=== PATIENT | male | born 1935 | race Caucasian/White ===

== ENCOUNTER → 2016-08-06 | Outpatient (CLI) | payer MEDICARE, BC ==
--- NOTE | 2016-08-06 17:13 | XR ---
EXAMINATION TYPE: XR foot complete LT DATE OF EXAM: 08/06/2016 4:37 PM COMPARISON: 05/31/2016 HISTORY: Pain TECHNIQUE: 3 views FINDINGS: Metatarsals are intact. I see no fracture nor dislocation. There are no erosions. There is minimal spurring at the first MP joint. IMPRESSION: Negative left foot exam. No adverse change compared to last exam. Minor spur formation. T here is mild spurring at the first tarsometatarsal joint.
== END | disposition home or self-care (01) ==
LOC: RADXRMAIN 16:22
PROVIDERS: ATTEND Family Medicine
DX: M77.52 Other enthesopathy of left foot and ankle (principal); M79.672 Pain in left foot

== ENCOUNTER → 2016-08-12 | Outpatient (CLI) | payer MEDICARE, BC ==
--- NOTE | 2016-08-13 06:25 | XR ---
EXAMINATION TYPE: XR chest 2V DATE OF EXAM: 08/12/2016 4:39 PM COMPARISON: 06/28/2016 HISTORY: 81 year-old male shortness of breath TECHNIQUE: Frontal and lateral views FINDINGS: Left anterior chest wall AICD generator with right ventricular lead. Heart remains mild to moderately enlarged with mild elongation of the thoracic aorta. Mild diffuse interstitial prominence may in par t be chronic. No consolidation or pleural effusion. IMPRESSION: Cardiomegaly. Interstitial prominence may in part be chronic. Correlate to exclude mild pulmonary vas cular congestion. Otherwise, no acute process.
== END | disposition home or self-care (01) ==
LOC: RADXRMAIN 16:22
PROVIDERS: ATTEND Family Medicine
DX: I51.7 Cardiomegaly (principal); R06.02 Shortness of breath
CPT/HCPCS: 71020; 93005

== ENCOUNTER 2016-08-15 12:24 | Inpatient (IN) | payer MEDICARE, BC ==
[2016-08-15] MEDS ORDERED: IPRATROPIUM-ALBUTEROL 3 ML NEB INHALATION STA (13:03)
--- NOTE | 2016-08-15 13:10 | ED ---
URI HPI - General Source: patient, family, RN notes reviewed Mode of arrival: wheelchair Limitations: no limitations <Wagner Scott - Last Filed: 08/15/16 15:43> <Mayito Coates - Last Filed: 08/19/16 15:19> - General Chief Complaint: Upper Respiratory Infection Stated Complaint: Weakness/Cough Sent by Dr Sorenson Seen by Provider: 08/15/16 12:52 - History of Present Illness Initial Comments: This is an 81-year-old male presents emergency Department with chief complaint of chest congestion, shortness of breath. Patient states she's been sick for over one week. Patient saw primary care physician Dr. Farah and placed him on antibiotics 3 days ago. Patient states that he is progressively getting worse having increased shortness of breath, weakness. Patient called primary care physician today who sent emergency department. Patient states his cough is productive any has worsening shortness breath when he lays down. Patient has no known lung issues. Patient states she has a long-standing history of cardiac issues which does include CHF, A. fib. Patient denies any known fever states she's having chills. Patient denies runny nose, sore throat, ear pain. Patient has no abdominal complaints including nausea vomiting diarrhea constipation. Patient states she does have some swelling of his lower extremities which is not much worse and usual. Patient takes Lasix daily. ( Wagner Scott) - Related Data Home Medications Medication Instructions Recorded Confirmed Digoxin [Lanoxin] 125 mcg PO Q48H 09/03/14 08/15/16 Insulin Detemir [Levemir Flextouch] 22 units SQ QAM 09/03/14 08/15/16 Lovastatin [Mevacor] 40 mg PO HS 09/03/14 08/15/16 Multivitamins, Thera [Multivitamin] 1 tab PO DAILY 09/03/14 08/15/16 hydrALAZINE HCL [Apresoline] 25 mg PO TID 09/03/14 08/15/16 Apixaban [Eliquis] 2.5 mg PO BID 01/18/16 08/15/16 Isosorbide Dinitrate [Isordil] 10 mg PO TID 01/18/16 08/15/16 Rivastigmine Tartrate 1.5 mg PO BID 01/18/16 08/15/16 [Rivastigmine] Insulin Aspart [NovoLOG Flexpen] See Protocol SQ AC-TID 06/23/16 08/15/16 Cefuroxime [Ceftin] 500 mg PO BID 08/15/16 08/15/16 Dorzolamide/Timolol/Pf [Cosopt Pf 1 applicator BOTH EYES BID 08/15/16 08/15/16 2%/5% Ophth Droperette] Furosemide [Lasix] 40 mg PO DAILY 08/15/16 08/15/16 Metoprolol Succinate [Toprol XL] 50 mg PO DAILY 08/15/16 08/15/16 traMADol HCL [Ultram] 50 mg PO Q6HR PRN 08/15/16 08/15/16 Allergies Allergy/AdvReac Type Severity Reaction Status Date / Time fish oil Allergy Unknown Verified 08/15/16 13:09 Iodinated Contrast Media - Allergy Rash/Hives Verified 08/15/16 13:09 Oral and [Iodinated Contrast Media - IV Dye] shellfish derived Allergy Rash/Hives Verified 08/15/16 13:09 warfarin sodium Allergy Unknown Verified 08/15/16 13:09 [From Coumadin] Review of Systems ROS Other: All systems not noted in ROS Statement are negative. <Wagner Scott - Last Filed: 08/15/16 15:43> ROS Other: All systems not noted in ROS Statement are negative. <Mayito Coates - Last Filed: 08/19/16 15:19> ROS Statement: Those systems with pertinent positive or pertinent negative responses have been documented in the HPI. Past Medical History Past Medical History: Atrial Fibrillation, Heart Failure, Diabetes Mellitus, Hyperlipidemia, Hypertension, Renal Disease, Skin Disorder Additional Past Medical History / Comment(s): skin CA History of Any Multi-Drug Resistant Organisms: None Reported Past Surgical History: Cholecystectomy, Hernia Repair, Pacemaker Additional Past Surgical History / Comment(s): pacemaker/defibrillator, cataracts removed, skin CA removed from face Past Anesthesia/Blood Transfusion Reactions: No Reported Reaction Type of Cardiac Device: AICD Device Placement Date:: 07/2011 Past Psychological History: No Psychological Hx Reported Additional Psychological History / Comment(s): Pt resides with his spouse of 53 yrs. He is independent. He drives. Smoking Status: Never smoker Past Alcohol Use History: None Reported Past Drug Use History: None Reported - Past Family History Mother History Unknown: Yes Additional Family Medical History / Comment(s): Pt does not know parents history -he was raised in foster care. Son(s) Family Medical History: AFIB Additional Family Medical History / Comment(s): son had heart transplant <Wagner Scott - Last Filed: 08/15/16 15:43> General Exam Limitations: no limitations General appearance: alert, in no apparent distress Head exam: Present: atraumatic, normocephalic, normal inspection Eye exam: Present: normal appearance, PERRL, EOMI. Absent: scleral icterus, conjunctival injection, periorbital swelling ENT exam: Present: normal exam, mucous membranes moist Neck exam: Present: normal inspection, full ROM. Absent: tenderness, meningismus, lymphadenopathy Respiratory exam: Present: wheezes. Absent: normal lung sounds bilaterally, respiratory distress, rales, rhonchi, stridor Cardiovascular Exam: Present: tachycardia, irregular rhythm, normal heart sounds. Absent: systolic murmur, diastolic murmur, rubs, gallop, clicks GI/Abdominal exam: Present: soft, normal bowel sounds. Absent: distended, tenderness, guarding, rebound, rigid <Wagner Scott - Last Filed: 08/15/16 15:43> Medical Decision Making - Lab Data Result diagrams: 08/15/16 13:40 08/15/16 13:10 <Wagner Scott - Last Filed: 08/15/16 15:43> - Lab Data Result diagrams: 08/19/16 06:07 08/19/16 06:07 <Mayito Coates - Last Filed: 08/19/16 15:19> - Medical Decision Making I saw this patient in conjunction with the physician health center assistant. I performed independent history and physical exam. Agree with case management. (Mayito Coates) - Lab Data Lab Results 08/15/16 08/15/16 08/15/16 Range/Units 13:10 13:10 13:10 WBC (3.8-10.6) k/uL RBC (4.30-5.90) m/uL Hgb (13.0-17.5) gm/dL Hct (39.0-53.0) % MCV (80.0-100.0) fL MCH (25.0-35.0) pg MCHC (31.0-37.0) g/dL RDW (11.5-15.5) % Plt Count (150-450) k/uL Neutrophils % (Manual) % Lymphocytes % (Manual) % Monocytes % (Manual) % Eosinophils % (Manual) % Neutrophils # (Manual) (1.3-7.7) k/uL Lymphocytes # (Manual) (1.0-4.8) k/uL Monocytes # (Manual) (0-1.0) k/uL Eosinophils # (Manual) (0-0.7) k/uL Nucleated RBCs (0-0) /100 WBC Manual Slide Review PT (9.0-12.0) sec INR (<1.1) APTT (22.0-30.0) sec Sodium 141 (137-145) mmol/L Potassium 5.1 (3.5-5.1) mmol/L Chloride 99 (98-107) mmol/L Carbon Dioxide 26 (22-30) mmol/L Anion Gap 16 mmol/L BUN 28 H (9-20) mg/dL Creatinine 1.70 H (0.66-1.25) mg/dL Est GFR (MDRD) Af Amer 47 (>60 ml/min/1.73 sqM) Est GFR (MDRD) Non-Af 39 (>60 ml/min/1.73 sqM) Glucose 83 (74-99) mg/dL Estimated Ave Glu mg/dL mg/dL Hemoglobin A1c (4.2-6.1) % Calcium 9.8 (8.4-10.2) mg/dL Magnesium 2.1 (1.6-2.3) mg/dL Total Bilirubin 2.9 H (0.2-1.3) mg/dL AST 46 (17-59) U/L ALT 30 (21-72) U/L Alkaline Phosphatase 170 H (38-126) U/L Total Creatine Kinase 59 (55-170) U/L CK-MB (CK-2) 1.5 (0.0-2.4) ng/mL CK-MB (CK-2) Rel Index 2.5 Troponin I 0.044 H* (0.000-0.034) ng/mL NT-Pro-B Natriuret Pep 43529 pg/mL Total Protein 7.4 (6.3-8.2) g/dL Albumin 4.4 (3.5-5.0) g/dL 08/15/16 08/15/16 08/15/16 Range/Units 13:10 13:30 13:40 WBC 8.7 (3.8-10.6) k/uL RBC 4.79 (4.30-5.90) m/uL Hgb 14.2 (13.0-17.5) gm/dL Hct 44.1 (39.0-53.0) % MCV 92.1 (80.0-100.0) fL MCH 29.6 (25.0-35.0) pg MCHC 32.2 (31.0-37.0) g/dL RDW 14.1 (11.5-15.5) % Plt Count 119 L (150-450) k/uL Neutrophils % (Manual) 71.0 % Lymphocytes % (Manual) 14.0 % Monocytes % (Manual) 5.0 % Eosinophils % (Manual) 10.0 % Neutrophils # (Manual) 6.2 (1.3-7.7) k/uL Lymphocytes # (Manual) 1.2 (1.0-4.8) k/uL Monocytes # (Manual) 0.4 (0-1.0) k/uL Eosinophils # (Manual) 0.9 H (0-0.7) k/uL Nucleated RBCs 0 (0-0) /100 WBC Manual Slide Review Performed PT 12.6 H (9.0-12.0) sec INR 1.3 (<1.1) APTT 23.7 (22.0-30.0) sec Sodium (137-145) mmol/L Potassium (3.5-5.1) mmol/L Chloride (98-107) mmol/L Carbon Dioxide (22-30) mmol/L Anion Gap mmol/L BUN (9-20) mg/dL Creatinine (0.66-1.25) mg/dL Est GFR (MDRD) Af Amer (>60 ml/min/1.73 sqM) Est GFR (MDRD) Non-Af (>60 ml/min/1.73 sqM) Glucose (74-99) mg/dL Estimated Ave Glu mg/dL 151 mg/dL Hemoglobin A1c 6.9 H (4.2-6.1) % Calcium (8.4-10.2) mg/dL Magnesium (1.6-2.3) mg/dL Total Bilirubin (0.2-1.3) mg/dL AST (17-59) U/L ALT (21-72) U/L Alkaline Phosphatase (38-126) U/L Total Creatine Kinase (55-170) U/L CK-MB (CK-2) (0.0-2.4) ng/mL CK-MB (CK-2) Rel Index Troponin I (0.000-0.034) ng/mL NT-Pro-B Natriuret Pep pg/mL Total Protein (6.3-8.2) g/dL Albumin (3.5-5.0) g/dL 08/15/16 15:11 EKG performed at 12:56 A. fib rate of 105, QRS duration 104 QT/QTC 306/404 ( Wagner Scott) Disposition <Wagner Scott - Last Filed: 08/15/16 15:43> <Mayito Coates - Last Filed: 08/19/16 15:19> Clinical Impression: Dyspnea, Bronchospasm with bronchitis, acute, CHF (congestive heart failure), Afib Disposition: ADMITTED IP TO THIS HOSP
[2016-08-15 13:50] LABS: Calcium 9.8 mg/dL (8.4-10.2); Magnesium 2.1 mg/dL (1.6-2.3); Total Bilirubin 2.9 mg/dL (0.2-1.3); Total Protein 7.4 g/dL (6.3-8.2)
[2016-08-15 13:53] LABS: INR 1.3 (<1.1); Partial Thromboplastin Time 23.7 sec (22.0-30.0); Prothrombin Time 12.6 sec (9.0-12.0)
[2016-08-15 13:54] LABS: Potassium 5.1 mmol/L (3.5-5.1)
[2016-08-15 14:09] LABS: CH 29.4; HCT 44.1 % (39.0-53.0); HDW 2.51; HGB 14.2 gm/dL (13.0-17.5); MCH 29.6 pg (25.0-35.0); MCHC 32.2 g/dL (31.0-37.0); MCV 92.1 fL (80.0-100.0); Mean Platelet Volume 7.9; RBC 4.79 m/uL (4.30-5.90); RDW 14.1 % (11.5-15.5); WBC 8.7 k/uL (3.8-10.6); WBC (Perox) 10.19
--- NOTE | 2016-08-15 14:20 | XR ---
EXAMINATION TYPE: XR chest 2V DATE OF EXAM: 08/15/2016 2:01 PM COMPARISON: 08/12/2016 INDICATION: Difficulty breathing, coughing TECHNIQUE: Frontal and lateral views of the chest are obtained. FINDINGS: The heart size is normal. The pulmonary vasculature is normal. The lungs are clear. Electronic device overlies left chest. IMPRESSION: 1. No acute pulmonary process.
[2016-08-15 14:26] LABS: Creatine Kinase MB 1.5 ng/mL (0.0-2.4)
[2016-08-15 14:28] LABS: Troponin I 0.044 ng/mL (0.000-0.034)
[2016-08-15 14:47] LABS: Add Differential Manual Differential
[2016-08-15 14:54] LABS: Nucleated Red Blood Cells 0 /100 WBC (0-0); Total Cells Counted 100
[2016-08-15 14:55] LABS: Manual Review Performed
[2016-08-15] MEDS ORDERED: methylPREDNISolone SOD SUCCI 125 MG/2 ML VIAL IV STA (15:46)
[2016-08-15 17:11] LABS: Glucose,Whole Blood 50 mg/dL (75-99)
[2016-08-15 17:54] LABS: Glucose,Whole Blood 133 mg/dL (75-99)
[2016-08-15 20:49] LABS: Glucose,Whole Blood 149 mg/dL (75-99)
[2016-08-15] MEDS: FUROSEMIDE 10 MG/ML 4 ML VIAL IV SCH ×2 (21:11→21:12)
[2016-08-15] MEDS: ATORVASTATIN 10 MG TAB PO SCH (22:07)
[2016-08-15] MEDS: APIXABAN 2.5 MG TABLET PO SCH (22:07)
[2016-08-15] MEDS: INSULIN LISPRO (humaLOG) 300 UNIT/3 ML VIAL SQ SCH (22:08)
[2016-08-15] MEDS: CEFUROXIME 250 MG TAB PO SCH (22:08)
[2016-08-15] MEDS: ISOSORBIDE DINITRATE 10 MG TAB PO SCH (22:09)
[2016-08-15] MEDS: hydrALAZINE HCL 25 MG TAB PO SCH (22:09)
[2016-08-15] MEDS: DORZOLAMIDE-TIMOLOL 2-0.5% DROPS 10 ML BTL BOTH EYES SCH (22:13)
[2016-08-16 02:51] LABS: Calcium 9.1 mg/dL (8.4-10.2); Potassium 4.4 mmol/L (3.5-5.1); Total Bilirubin 2.7 mg/dL (0.2-1.3); Total Protein 6.1 g/dL (6.3-8.2)
[2016-08-16 06:02] LABS: Glucose,Whole Blood 155 mg/dL (75-99)
[2016-08-16] MEDS: INSULIN LISPRO (humaLOG) 300 UNIT/3 ML VIAL SQ SCH ×4 (06:56→21:08)
[2016-08-16] MEDS: IPRATROPIUM-ALBUTEROL 3 ML NEB INHALATION PRN ×3 (09:21→20:21)
[2016-08-16] MEDS: hydrALAZINE HCL 25 MG TAB PO SCH (09:26)
[2016-08-16] MEDS: FUROSEMIDE 10 MG/ML 4 ML VIAL IV SCH (09:26)
[2016-08-16] MEDS: ISOSORBIDE DINITRATE 10 MG TAB PO SCH (09:26)
[2016-08-16] MEDS: CEFUROXIME 250 MG TAB PO SCH ×2 (09:42→21:08)
[2016-08-16] MEDS: DORZOLAMIDE-TIMOLOL 2-0.5% DROPS 10 ML BTL BOTH EYES SCH ×2 (09:42→21:08)
[2016-08-16] MEDS: DONEPEZIL 5 MG TAB PO SCH (09:42)
[2016-08-16] MEDS: APIXABAN 2.5 MG TABLET PO SCH ×2 (09:42→21:07)
[2016-08-16] MEDS: FUROSEMIDE 10 MG/ML 2 ML VIAL IV SCH (09:42)
--- NOTE | 2016-08-16 10:10 | CONS ---
DATE OF CONSULTATION: CHIEF COMPLAINT: Nonsustained VTEs Fernandez is an 81-year-old gentleman with history of chronic systolic heart failure, chronic atrial fibrillation, hypertensive heart disease, status post AICD, dyslipidemia, insulin-requiring diabetes and hypertension who presented to the hospital with cough, shortness of breath, not feeling well. Cardiology has been consulted because of a run of nonsustained VT. He denies chest pain. Has shortness of breath. Denies leg edema, paroxysmal nocturnal dyspnea, orthopnea. Past medical history is significant for severe COPD, heart failure, atrial fibrillation, AICD. He follows with a fine arts model at [facility]. Past medical history is significant for atrial fibrillation, cardiomyopathy, congestive heart failure, hypertension. Medications include Lasix, Ceftin, Eliquis 2.5 b.i.d., Lanoxin, Mevacor, Isordil, Levemir, Apresoline 25 t.i.d., Toprol XL, and multivitamin. ALLERGIES: The patient is allergic to IV DYE, SHELLFISH and COUMADIN. Family history is negative for premature coronary artery disease. SOCIAL HISTORY: Denies current smoking, EtOH abuse, or drug abuse. REVIEW OF SYSTEMS: HEENT: Unremarkable. CARDIAC: As described above. RESPIRATORY: As described above. GI: Negative. GENITOURINARY: Negative. ALLERGY/IMMUNOLOGY: Negative. MUSCULOSKELETAL: Significant for arthritis. PSYCHOSOCIAL: Negative. ENDOCRINE: Negative. HEMATOLOGICAL: Negative. DERMATOLOGICAL: Negative. CONSTITUTIONAL: Significant for not feeling well, cough, fatigue. The rest of the system review is not relevant. On exam, he is coughing and seems to be in mild respiratory distress. Heart rate is 90 beats per minute. Blood pressure is 94/59. Respiratory rate is 20. Chest exam reveals occasional rhonchi with diminished air entry. Heart exam reveals first and second heart sounds. No gallop. Abdomen is soft. Exam of the extremities did not reveal any edema. Peripheral pulses are felt. Labs show that 3 sets of troponins are 0.04., 0.04, 0.04. Potassium is 4.4. BUN is 29. Creatinine is 1.6. BNP was not done. Rhythm strip shows runs of nonsustained VT. ASSESSMENT: 1. Nonsustained ventricular tachycardia. 2. Shortness of breath, probably due to a combination of exacerbation of heart failure and chronic obstructive pulmonary disease. 3. History of atrial fibrillation. PLAN: I am going to decrease the dose of Lasix on him. Add Tenormin 25 mg daily. Continue the Eliquis, Lipitor and rest of the medications that he is on.
[2016-08-16] MEDS: ATENOLOL 25 MG TAB PO SCH (10:32)
[2016-08-16 11:59] LABS: Glucose,Whole Blood 183 mg/dL (75-99)
[2016-08-16 13:14] LABS: Hemoglobin A1C 6.9 % (4.2-6.1)
--- NOTE | 2016-08-16 13:36 | ECHOF ---
Referral Reason:chf MEASUREMENTS -------- HEIGHT: 162.6 cm WEIGHT: 54.0 kg BP: 94/59 IVSd: 1.1 cm (0.6 - 1.1) LVIDd: 5.0 cm (3.9 - 5.3) LVPWd: 1.1 cm (0.6 - 1.1) LVIDs: 4.7 cm LA Diam: 4.0 cm (2.7 - 3.8) RVIDd: 3.7 cm (< 3.3) LAESV Index (A-L): 31.13 ml/m Ao Diam: 3.1 cm (2.0 - 3.7) AV Cusp: 2.1 cm (1.5 - 2.6) EPSS: 1.9 cm MV E Pedro Luis: 0.86 m/s MV DecT: 157 ms MV A Pedro Luis: 0.18 m/s MV E/A Ratio: 4.66 RAP: 15.00 mmHg RVSP: 30.59 mmHg MV EF SLOPE: 46.70 mm/s (70 - 150) MV EXCURSION: 14.67 mm (> 18.000) FINDINGS -------- Pacerwire seen in RV and RA. This was a technically good study. The left ventricular size is normal. There is borderline concentric left ventricular hypertrophy. Overall left ventricular systolic function is severely impaired with, an EF < 20%. The right ventricle is mildly enlarged. Normal LA size by volume 22+/-6 ml/m2. The right atrium is normal in size. The aortic valve is trileaflet and appears structurally normal. The mitral valve leaflets are mildly thickened. Mild mitral annular calcification present. Mild mitral regurgitation is present. Moderate to severe tricuspid regurgitation present. Right ventricular systolic pressure is normal at < 35 mmHg. Trace/mild (physiologic) pulmonic regurgitation. The aortic root size is normal. The inferior vena cava is dilated with poor inspiratory collapse which is consistent with estimated right atrial pressure of 15 mmHg. There is no pericardial effusion. CONCLUSIONS -------- 1. Pacerwire seen in RV and RA. 2. The mitral valve leaflets are mildly thickened. 3. Mild mitral annular calcification present. 4. Mild mitral regurgitation is present. 5. Moderate to severe tricuspid regurgitation present. 6. Right ventricular systolic pressure is normal at < 35 mmHg. 7. Trace/mild (physiologic) pulmonic regurgitation. 8. The aortic root size is normal. 9. The inferior vena cava is dilated with poor inspiratory collapse which is consistent with estimated right atrial pressure of 15 mmHg. 10. There is no pericardial effusion. 11. This was a technically good study. 12. The left ventricular size is normal. 13. There is borderline concentric left ventricular hypertrophy. 14. Overall left ventricular systolic function is severely impaired with, an EF < 20%. 15. The right ventricle is mildly enlarged. 16. Normal LA size by volume 22+/-6 ml/m2. 17. The right atrium is normal in size. 18. The aortic valve is trileaflet and appears structurally normal. EMERGENCY VEHICLE OPERATIONS INSTRUCTOR: Mone Allison RDCS
--- NOTE | 2016-08-16 16:43 | P.HPIM ---
History of Present Illness H&P Date: 08/16/16 Chief Complaint: Cough His is a 81-year-old gentleman with history of chronic systolic heart failure atrial fibrillation status post AICD placement comes in to the hospital as patient was not feeling well. Patient probably has been having significant amount of cough for the last 4-5 days. Patient was seen by Dr. Farah on outpatient basis was started on Ceftin 2 days ago. Patient apparently had a bout of cough for 2 hours and has been nonproductive in nature the night before admission. Patient thereafter had another episode where he had a bout of cough for over hour. Patient thereafter noted some palpitations which was not associated with chest pain. Patient denies having any fevers, chills, abdominal pain nausea vomiting change in bowel habits. Patient was a lifelong nonsmoker. Currently states that he's feeling slightly better. His cough is improved with the breathing treatments and a dose of steroids. Patient apparently had episode of nonsustained ventricular tachycardia. Review of Systems All systems: negative (Noted in HPI) Past Medical History Past Medical History: Atrial Fibrillation, Heart Failure, Diabetes Mellitus, Hypertension, Renal Disease, Skin Disorder Additional Past Medical History / Comment(s): skin CA, "/PT STATED NEVER HAD HIGH BP", BRONCHITS/BRONCHOSPASM JUN 2016 History of Any Multi-Drug Resistant Organisms: None Reported Past Surgical History: AICD, Cholecystectomy, Hernia Repair Additional Past Surgical History / Comment(s): defibrillator, cataracts removed , skin CA removed from face Past Anesthesia/Blood Transfusion Reactions: No Reported Reaction Type of Cardiac Device: AICD Device Placement Date:: 07-28-11 Past Psychological History: No Psychological Hx Reported Additional Psychological History / Comment(s): Pt resides with his spouse of 53 yrs. He is independent. He drives. Smoking Status: Never smoker Past Alcohol Use History: None Reported Past Drug Use History: None Reported - Past Family History Mother History Unknown: Yes Additional Family Medical History / Comment(s): Pt does not know parents history -he was raised in foster care. Son(s) Family Medical History: AFIB Additional Family Medical History / Comment(s): son had heart transplant Medications and Allergies Home Medications Medication Instructions Recorded Confirmed Type Digoxin [Lanoxin] 125 mcg PO Q48H 09/03/14 08/15/16 History Insulin Detemir [Levemir Flextouch] 22 units SQ QAM 09/03/14 08/15/16 History Lovastatin [Mevacor] 40 mg PO HS 09/03/14 08/15/16 History Multivitamins, Thera [Multivitamin] 1 tab PO DAILY 09/03/14 08/15/16 History hydrALAZINE HCL [Apresoline] 25 mg PO TID 09/03/14 08/15/16 History Apixaban [Eliquis] 2.5 mg PO BID 01/18/16 08/15/16 History Isosorbide Dinitrate [Isordil] 10 mg PO TID 01/18/16 08/15/16 History Rivastigmine Tartrate 1.5 mg PO BID 01/18/16 08/15/16 History [Rivastigmine] Insulin Aspart [NovoLOG Flexpen] See Protocol SQ AC-TID 06/23/16 08/15/16 History Cefuroxime [Ceftin] 500 mg PO BID 08/15/16 08/15/16 History Dorzolamide/Timolol/Pf [Cosopt Pf 1 applicator BOTH EYES BID 08/15/16 08/15/16 History 2%/5% Ophth Droperette] Furosemide [Lasix] 40 mg PO DAILY 08/15/16 08/15/16 History Metoprolol Succinate [Toprol XL] 50 mg PO DAILY 08/15/16 08/15/16 History traMADol HCL [Ultram] 50 mg PO Q6HR PRN 08/15/16 08/15/16 History Allergies Allergy/AdvReac Type Severity Reaction Status Date / Time fish oil Allergy Unknown Verified 08/15/16 13:09 Iodinated Contrast Media - Allergy Rash/Hives Verified 08/15/16 13:09 Oral and [Iodinated Contrast Media - IV Dye] shellfish derived Allergy Rash/Hives Verified 08/15/16 13:09 warfarin sodium Allergy Unknown Verified 08/15/16 13:09 [From Coumadin] Physical Exam Vitals: Vital Signs Temp Pulse Pulse Pulse Resp BP Pulse Ox 08/16/16 16:23 77 08/16/16 16:10 74 08/16/16 16:09 97 F L 77 18 97/56 98 08/16/16 11:49 96.7 F L 71 18 113/79 97 08/16/16 09:30 92 08/16/16 09:21 92 02/11/17 08:25 91 18 94/59 98 08/16/16 04:00 82 20 106/78 95 08/16/16 00:00 97.6 F 81 20 93/55 94 L 08/15/16 20:00 97.8 F 82 18 119/84 97 08/15/16 17:50 77 16 124/73 99 Intake and Output 08/16/16 08/16/16 08/16/16 06:59 14:59 22:59 Intake Total 100 360 Output Total 350 Balance -250 360 Intake: Oral 100 360 Output: Urine 350 Other: Voiding Method Urinal Urinal Urinal Weight 54.2 kg 54.2 kg Patient Weight 08/17/16 06:59 Weight 54.2 kg gen Appearance alert and oriented 3 Heart S1 and S2 heart regular rhythm no murmurs or patient Lungs cough and is with deep breathing and there is some exp. wheeze Abdomen is soft nontender organomegaly bowel sounds intact Neurologically no focal motor or sensory deficits noted Results CBC & Chem 7: 08/15/16 13:40 08/16/16 02:18 Labs: Abnormal Lab Results - Last 24 Hours (Table) 08/15/16 08/15/16 08/15/16 Range/Units 16:59 17:52 20:48 BUN (9-20) mg/dL Creatinine (0.66-1.25) mg/dL Glucose (74-99) mg/dL POC Glucose (mg/dL) 50 L 133 H 149 H (75-99) mg/dL Total Bilirubin (0.2-1.3) mg/dL Alkaline Phosphatase (38-126) U/L Troponin I (0.000-0.034) ng/mL Total Protein (6.3-8.2) g/dL 08/15/16 08/16/16 08/16/16 Range/Units 22:19 02:18 02:18 BUN 29 H (9-20) mg/dL Creatinine 1.60 H (0.66-1.25) mg/dL Glucose 149 H (74-99) mg/dL POC Glucose (mg/dL) (75-99) mg/dL Total Bilirubin 2.7 H (0.2-1.3) mg/dL Alkaline Phosphatase 175 H (38-126) U/L Troponin I 0.044 H* 0.041 H* (0.000-0.034) ng/mL Total Protein 6.1 L (6.3-8.2) g/dL 08/16/16 08/16/16 Range/Units 06:00 11:57 BUN (9-20) mg/dL Creatinine (0.66-1.25) mg/dL Glucose (74-99) mg/dL POC Glucose (mg/dL) 155 H 183 H (75-99) mg/dL Total Bilirubin (0.2-1.3) mg/dL Alkaline Phosphatase (38-126) U/L Troponin I (0.000-0.034) ng/mL Total Protein (6.3-8.2) g/dL Assessment and Plan Plan: #1 nonsustained ventricular tachycardia. #2 difficulty breathing and cough likely secondary to an acute exacerbation of reactive airway disease which is to be diagnosis suspect mild COPD exacerbated by acute bronchitis #3 history of chronic atrial fibrillation #4 compensated systolic heart failure #5 history of hypertension #6 dyslipidemia Plan Cardiology consultation We'll start patient on Solu-Medrol iv every 12 hours. Breathing treatments scheduled Beta leandro therapy eliquis will be restarted rest of the medications were reconciled. A repeat chest x-ray will be done.
[2016-08-16 16:56] LABS: Glucose,Whole Blood 310 mg/dL (75-99)
[2016-08-16 20:44] LABS: Glucose,Whole Blood 266 mg/dL (75-99)
[2016-08-16] MEDS: ATORVASTATIN 10 MG TAB PO SCH (21:07)
[2016-08-16] MEDS: methylPREDNISolone SOD SUCCI 40 MG/ML 1 ML VIAL IV SCH (21:08)
[2016-08-17 06:20] LABS: Glucose,Whole Blood 198 mg/dL (75-99)
[2016-08-17] MEDS: INSULIN LISPRO (humaLOG) 300 UNIT/3 ML VIAL SQ SCH ×4 (06:33→21:33)
[2016-08-17 07:18] LABS: Basophils % (A) 0 %; CH 29.4; CHCM 32.2; Eosinophils % (A) 0 %; HCT 43.9 % (39.0-53.0); HDW 2.42; HGB 13.7 gm/dL (13.0-17.5); Luc # (Auto) 0.07; Luc % (Auto) 1; Lymphocytes # (A) 0.5 k/uL (1.0-4.8); Lymphocytes % (A) 9 %; MCH 28.6 pg (25.0-35.0); MCHC 31.2 g/dL (31.0-37.0); MCV 91.6 fL (80.0-100.0); Mean Platelet Volume 8.2; Monocytes # (A) 0.2 k/uL (0-1.0); Monocytes % (A) 3 %; Neutrophils # (A) 5.3 k/uL (1.3-7.7); Neutrophils % (A) 87 %; WBC 6.1 k/uL (3.8-10.6)
[2016-08-17 07:29] LABS: Calcium 9.3 mg/dL (8.4-10.2); Potassium 4.9 mmol/L (3.5-5.1); Total Bilirubin 1.8 mg/dL (0.2-1.3); Total Protein 6.2 g/dL (6.3-8.2)
[2016-08-17] MEDS: FUROSEMIDE 10 MG/ML 2 ML VIAL IV SCH (07:45)
[2016-08-17] MEDS: CEFUROXIME 250 MG TAB PO SCH ×2 (07:48→20:34)
[2016-08-17] MEDS: APIXABAN 2.5 MG TABLET PO SCH ×2 (07:48→20:34)
[2016-08-17] MEDS: DORZOLAMIDE-TIMOLOL 2-0.5% DROPS 10 ML BTL BOTH EYES SCH ×2 (07:49→20:33)
[2016-08-17] MEDS: methylPREDNISolone SOD SUCCI 40 MG/ML 1 ML VIAL IV SCH ×2 (07:49→21:33)
[2016-08-17] MEDS: MULTIVITAMINS, THERA 1 EACH TAB PO SCH (07:49)
[2016-08-17] MEDS: DONEPEZIL 5 MG TAB PO SCH (07:49)
[2016-08-17] MEDS: IPRATROPIUM-ALBUTEROL 3 ML NEB INHALATION PRN ×2 (08:26→21:00)
--- NOTE | 2016-08-17 08:35 | XR ---
EXAMINATION TYPE: XR chest 2V DATE OF EXAM: 08/17/2016 7:02 AM COMPARISON: August 15, 2016 HISTORY: Congestive heart failure, follow-up exam. Chest pain. TECHNIQUE: Frontal and lateral views of the chest are obtained. FINDINGS: There is no focal air space opacity, pleural effusion, or pneumothorax seen. The cardiac silhouette is unchanged in size, upper limits of normal as well as unchanged tortuosity of the descen ding thoracic aorta. Left side single lead cardiac device is unchanged. The osseous structures are intact. IMPRESSION: No acute cardiopulmonary process, unchanged from the prior exam.
[2016-08-17] MEDS: ATENOLOL 25 MG TAB PO SCH (10:09)
[2016-08-17] MEDS: METOPROLOL SUCCINATE (ER) 50 MG TAB.ER.24H PO SCH (10:36)
[2016-08-17] MEDS: FUROSEMIDE 20 MG TAB PO SCH ×2 (10:36→15:24)
--- NOTE | 2016-08-17 11:25 | PN ---
Jim is an 81-year-old gentleman who is admitted to hospital with CHF and COPD exacerbation, underwent an echocardiogram by me yesterday that shows severe LV systolic dysfunction but this is chronic and ( ). He is doing much better now. Cough has improved. Chest x-ray did not reveal any congestion. He received IV Lasix and had an increase in his creatinine from 1.7 to 2.2. The IV Lasix had been cut down to 20 mg daily and we have just switched it to p.o. On exam, comfortable at rest. Vital signs are stable. Chest exam reveals good air entry bilaterally. Heart exam reveals first and second heart sounds. No gallop. ABDOMEN: Soft. Exam of extremities did not reveal edema. Peripheral pulses are felt. Labs show a hemoglobin of 13.7. Potassium is 4.9. Creatinine is 2.2. ASSESSMENT: 1. Acute exacerbation of chronic systolic heart failure. 2. Chronic renal insufficiency. PLAN: We have adjusted the Lasix dose. From cardiac standpoint he is stable.
[2016-08-17 11:36] LABS: Glucose,Whole Blood 319 mg/dL (75-99)
--- NOTE | 2016-08-17 15:53 | P.PN ---
Subjective This is a 81-year-old gentleman with history of chronic systolic heart failure atrial fibrillation status post AICD placement comes in to the hospital as patient was not feeling well. Patient probably has been having significant amount of cough for the last 4-5 days. Patient was seen by Dr. Farah on outpatient basis was started on Ceftin 2 days ago. Patient apparently had a bout of cough for 2 hours and has been nonproductive in nature the night before admission. Patient thereafter had another episode where he had a bout of cough for over hour. Patient thereafter noted some palpitations which was not associated with chest pain. Patient denies having any fevers, chills, abdominal pain nausea vomiting change in bowel habits. Patient was a lifelong nonsmoker. Currently states that he's feeling slightly better. His cough is improved with the breathing treatments and a dose of steroids. Patient apparently had episode of nonsustained ventricular tachycardia. 08/17/2016. Patient states that he's continues to have intermittent bouts of cough. He had significant amount cough this morning. Denies that is nonproductive. It's worsened with minimal exertion. Having fevers, chills, nausea, vomiting. Objective - Vital Signs Vital signs: Vital Signs Temp 97 F L 08/17/16 15:24 Pulse 71 08/17/16 15:24 Resp 18 08/17/16 15:24 BP 125/68 08/17/16 15:24 Pulse Ox 98 08/17/16 15:24 Intake & Output 08/16/16 08/17/16 08/17/16 18:59 06:59 18:59 Intake Total 600 1050 562 Output Total 300 175 Balance 300 875 562 Weight 54.2 kg 51.7 kg Intake: Oral 600 1050 562 Output: Urine 300 175 Other: Voiding Method Urinal Toilet Toilet Urinal Urinal - Exam Physical exam Gen. appearance oriented 3 in no distress Neck is supple no JVD Lungs good air entry clear to auscultation no rhonchi or wheezing Heart S1-S2 heard regular rate and rhythm no murmurs appreciated Abdomen is soft nontender no organomegaly bowel sounds are intact Neurologically cranial nerves II-12 grossly intact no focal motor or sensory deficits noted Skin no abnormalities appreciated - Labs CBC & Chem 7: 08/17/16 05:48 08/17/16 05:48 Labs: Abnormal Lab Results - Last 24 Hours (Table) 08/16/16 08/16/16 08/17/16 Range/Units 16:55 20:43 05:48 Plt Count 129 L (150-450) k/uL Lymphocytes # 0.5 L (1.0-4.8) k/uL Sodium (137-145) mmol/L Chloride (98-107) mmol/L BUN (9-20) mg/dL Creatinine (0.66-1.25) mg/dL Glucose (74-99) mg/dL POC Glucose (mg/dL) 310 H 266 H (75-99) mg/dL Total Bilirubin (0.2-1.3) mg/dL Alkaline Phosphatase (38-126) U/L Total Protein (6.3-8.2) g/dL 08/17/16 08/17/16 08/17/16 Range/Units 05:48 06:19 11:35 Plt Count (150-450) k/uL Lymphocytes # (1.0-4.8) k/uL Sodium 133 L (137-145) mmol/L Chloride 94 L (98-107) mmol/L BUN 48 H (9-20) mg/dL Creatinine 2.20 H (0.66-1.25) mg/dL Glucose 195 H (74-99) mg/dL POC Glucose (mg/dL) 198 H 319 H (75-99) mg/dL Total Bilirubin 1.8 H (0.2-1.3) mg/dL Alkaline Phosphatase 166 H (38-126) U/L Total Protein 6.2 L (6.3-8.2) g/dL Assessment and Plan Plan: #1 nonsustained ventricular tachycardia. #2 difficulty breathing and cough likely secondary to an acute exacerbation of reactive airway disease which is to be diagnosis suspect mild COPD exacerbated by acute bronchitis #3 history of chronic atrial fibrillation #4 compensated systolic heart failure #5 history of hypertension #6 dyslipidemia #7 steroid-induced hyperglycemia Plan Chronic cough. We'll have the patient on a PPI as well patient breathing is improved however has bouts of coughing intermittently more at night and in the morning. We'll start patient on Solu-Medrol iv every 12 hours. Breathing treatments scheduled Beta leandro therapy eliquis will be restarted rest of the medications were reconciled.
[2016-08-17 16:42] LABS: Glucose,Whole Blood 295 mg/dL (75-99)
[2016-08-17] MEDS: PANTOPRAZOLE 40 MG TABLET PO SCH (16:49)
[2016-08-17] MEDS: BENZONATATE 100 MG CAP PO PRN (20:33)
[2016-08-17] MEDS: ATORVASTATIN 10 MG TAB PO SCH (20:34)
[2016-08-17 21:42] LABS: Glucose,Whole Blood 264 mg/dL (75-99)
[2016-08-18 07:04] LABS: Glucose,Whole Blood 217 mg/dL (75-99)
[2016-08-18] MEDS: PANTOPRAZOLE 40 MG TABLET PO SCH (07:14)
[2016-08-18] MEDS: INSULIN LISPRO (humaLOG) 300 UNIT/3 ML VIAL SQ SCH ×4 (07:14→21:15)
--- NOTE | 2016-08-18 08:23 | P.PN ---
Subjective Principal diagnosis: Continued cough with dark urine. This is an 81-year-old white male essentially admitted for worsening cough and congestion. Chest x-ray did show some possible mild congestion. He still continued bouts of cough. He has an underlying history of atrial fibrillation and Stated systolic congestive heart failure. He states every time he urinates that his urine is dark. We will go ahead and check urinalysis if not done recently. Objective - Vital Signs Vital signs: Vital Signs Temp 97.1 F L 08/18/16 00:00 Pulse 83 08/18/16 04:00 Resp 18 08/18/16 04:00 BP 86/56 08/18/16 04:00 Pulse Ox 97 08/18/16 04:00 Intake & Output 08/17/16 08/18/16 08/18/16 18:59 06:59 18:59 Intake Total 562 240 Output Total 275 800 200 Balance 287 -800 40 Weight 52.7 kg Intake: Oral 562 240 Output: Urine 275 800 200 Other: Voiding Method Toilet Toilet Urinal Urinal # Voids 1 - Constitutional General appearance: Present: thin - EENT Eyes: Absent: abnormal pupil - Neck Neck: Absent: lymphadenopathy - Respiratory Respiratory: bilateral: rhonchi - Cardiovascular Rhythm: regular Heart sounds: normal: S1, S2 - Gastrointestinal General gastrointestinal: Present: soft. Absent: tenderness - Integumentary Integumentary: Absent: cellulitis - Neurologic Neurologic: Present: focal deficits - Musculoskeletal Musculoskeletal: Present: gait normal - Labs CBC & Chem 7: 08/17/16 05:48 08/17/16 05:48 Labs: Abnormal Lab Results - Last 24 Hours (Table) 08/17/16 08/17/16 08/17/16 Range/Units 11:35 16:39 21:09 POC Glucose (mg/dL) 319 H 295 H 264 H (75-99) mg/dL 08/18/16 Range/Units 06:32 POC Glucose (mg/dL) 217 H (75-99) mg/dL Assessment and Plan (1) Afib Status: Acute (2) Bronchospasm with bronchitis, acute Status: Acute (3) Dyspnea Status: Acute (4) AICD (automatic cardioverter/defibrillator) present Status: Acute (5) Diabetes Status: Acute Plan: Check urinalysis if not done on admission. Continue current regimen of antibiotic treatment. Question need for pulmonology if no significant improvement. Check CBC and CMP in a.m. Time with Patient: Less than 30
[2016-08-18] MEDS: IPRATROPIUM-ALBUTEROL 3 ML NEB INHALATION PRN ×2 (08:34→19:53)
[2016-08-18] MEDS: APIXABAN 2.5 MG TABLET PO SCH ×2 (09:20→21:15)
[2016-08-18] MEDS: DORZOLAMIDE-TIMOLOL 2-0.5% DROPS 10 ML BTL BOTH EYES SCH ×2 (09:20→21:15)
[2016-08-18] MEDS: MULTIVITAMINS, THERA 1 EACH TAB PO SCH (09:21)
[2016-08-18] MEDS: CEFUROXIME 250 MG TAB PO SCH (09:21)
[2016-08-18] MEDS: METOPROLOL SUCCINATE (ER) 50 MG TAB.ER.24H PO SCH (09:21)
[2016-08-18] MEDS: methylPREDNISolone SOD SUCCI 40 MG/ML 1 ML VIAL IV SCH ×2 (09:22→21:16)
[2016-08-18] MEDS: FUROSEMIDE 20 MG TAB PO SCH ×2 (09:22→16:32)
[2016-08-18] MEDS: DONEPEZIL 5 MG TAB PO SCH (09:22)
--- NOTE | 2016-08-18 11:49 | P.PN ---
Subjective Principal diagnosis: Cough This is an 81-year-old gentleman with history of atrial fibrillation, diabetes, renal disease, hypertension, hyperlipidemia, AICD implantation, who presented to the hospital mainly with symptoms of cough, nonproductive. Cardiology consultation was requested because of nonsustained ventricular tachycardia. He was seen in consultation yesterday by Dr. Frey, it was felt that the patient had a mild exacerbation of heart failure, yesterday Dr. Frey adjusted the Lasix dose because of worsening renal function, creatinine today is up to 2.2. Potassium 4.9. No further arrhythmias have been noted on the monitor. Blood pressure 114/80, heart rate in the 70s. Overall patient states she's feeling well, no complaints this morning. Echocardiogram with Doppler study was performed which revealed a severely impaired left ventricular systolic function with an ejection fraction of less than 20%. Patient is not currently on an DEZ inhibitor because of renal function. Objective - Vital Signs Vital signs: Vital Signs Temp 96.2 F L 08/18/16 08:00 Pulse 80 08/18/16 08:48 Resp 20 08/18/16 08:00 BP 113/81 08/18/16 08:00 Pulse Ox 93 L 08/18/16 08:00 Intake & Output 08/17/16 08/18/16 08/18/16 18:59 06:59 18:59 Intake Total 562 260 Output Total 275 800 200 Balance 287 -800 60 Weight 52.7 kg Intake: IV 20 Invasive Line 1 20 Oral 562 240 Output: Urine 275 800 200 Other: Voiding Method Toilet Toilet Urinal Urinal # Voids 1 - Exam PHYSICAL EXAMINATION: HEENT: Head is atraumatic, normocephalic. Pupils equal, round. Neck is supple. There is no elevated jugular venous pressure. HEART EXAMINATION: Heart S1 and S2 irregular irregular CHEST EXAMINATION: Lungs reveal scattered coarse wheezing throughout ABDOMEN: Soft, nontender. Bowel sounds are heard. No organomegaly noted. EXTREMITIES: 2+ peripheral pulses with 1+ pitting edema , no calf tenderness noted. NEUROLOGIC patient is awake, alert and oriented -3. . - Labs CBC & Chem 7: 08/17/16 05:48 08/17/16 05:48 Labs: Abnormal Lab Results - Last 24 Hours (Table) 08/17/16 08/17/16 08/17/16 Range/Units 11:35 16:39 21:09 POC Glucose (mg/dL) 319 H 295 H 264 H (75-99) mg/dL 08/18/16 Range/Units 06:32 POC Glucose (mg/dL) 217 H (75-99) mg/dL Assessment and Plan (1) Chronic a-fib Status: Acute (2) V-tach Status: Acute (3) AICD (automatic cardioverter/defibrillator) present Status: Acute (4) Systolic CHF, acute on chronic Status: Acute (5) Renal insufficiency Status: Acute (6) HTN (hypertension) Status: Acute (7) Hyperlipemia Status: Acute (8) Nonischemic cardiomyopathy Status: Acute (9) Diabetes Status: Acute Plan: From cardiology's perspective, we will recommend to continue the patient on his current medications. Check lytes BUN and creatinine in the morning. DNP note has been reviewed, I agree with a documented findings and plan of care. Patient was seen and examined.
[2016-08-18 12:15] LABS: Glucose,Whole Blood 262 mg/dL (75-99)
[2016-08-18 16:40] LABS: Glucose,Whole Blood 323 mg/dL (75-99)
[2016-08-18 16:47] LABS: Appearance,Urine Clear (Clear); Bilirubin,Urine Negative (Negative); Glucose,Urine (UA) Negative (Negative); Ketones,Urine Negative (Negative); Leukocyte Esterase,Urine Negative (Negative); Nitrite,Urine Negative (Negative); Protein,Urine Trace (Negative); Specific Gravity,Urine 1.012 (1.001-1.035); UA Billing (MACRO vs. MICRO) CHEM; Urobilinogen,Urine <2.0 mg/dL (<2.0)
[2016-08-18 20:56] LABS: Glucose,Whole Blood 300 mg/dL (75-99)
[2016-08-18] MEDS: ATORVASTATIN 10 MG TAB PO SCH (21:15)
[2016-08-18] MEDS: INSULIN DETEMIR 100 UNIT/ML 10 ML VIAL SQ SCH (21:26)
[2016-08-18] MEDS: BENZONATATE 100 MG CAP PO PRN (22:02)
[2016-08-19 06:19] LABS: Glucose,Whole Blood 183 mg/dL (75-99)
[2016-08-19] MEDS: PANTOPRAZOLE 40 MG TABLET PO SCH (06:45)
[2016-08-19] MEDS: INSULIN LISPRO (humaLOG) 300 UNIT/3 ML VIAL SQ SCH ×4 (06:45→21:10)
[2016-08-19 07:07] LABS: CH 29.5; CHCM 32.6; HCT 43.1 % (39.0-53.0); HDW 2.38; MCH 29.5 pg (25.0-35.0); MCHC 32.4 g/dL (31.0-37.0); Mean Platelet Volume 8.5; RBC 4.74 m/uL (4.30-5.90); RDW 14.1 % (11.5-15.5); WBC 7.8 k/uL (3.8-10.6)
[2016-08-19 07:28] LABS: Calcium 9.3 mg/dL (8.4-10.2); Potassium 4.7 mmol/L (3.5-5.1); Total Bilirubin 1.4 mg/dL (0.2-1.3); Total Protein 6.1 g/dL (6.3-8.2)
[2016-08-19] MEDS: IPRATROPIUM-ALBUTEROL 3 ML NEB INHALATION PRN ×3 (08:31→19:48)
[2016-08-19] MEDS: APIXABAN 2.5 MG TABLET PO SCH ×2 (09:15→21:08)
[2016-08-19] MEDS: CEFUROXIME 250 MG TAB PO SCH (09:15)
[2016-08-19] MEDS: INSULIN DETEMIR 100 UNIT/ML 10 ML VIAL SQ SCH (09:16)
[2016-08-19] MEDS: DORZOLAMIDE-TIMOLOL 2-0.5% DROPS 10 ML BTL BOTH EYES SCH ×2 (09:16→21:09)
[2016-08-19] MEDS: FUROSEMIDE 20 MG TAB PO SCH ×2 (09:16→16:53)
[2016-08-19] MEDS: DONEPEZIL 5 MG TAB PO SCH (09:16)
[2016-08-19] MEDS: MULTIVITAMINS, THERA 1 EACH TAB PO SCH (09:17)
[2016-08-19] MEDS: methylPREDNISolone SOD SUCCI 40 MG/ML 1 ML VIAL IV SCH ×2 (09:17→21:09)
[2016-08-19] MEDS: METOPROLOL SUCCINATE (ER) 50 MG TAB.ER.24H PO SCH (09:17)
[2016-08-19] MEDS: guaiFENesin-DM 100-10MG/5ML 10 ML CUP PO PRN ×3 (09:48→21:12)
[2016-08-19 11:40] LABS: Glucose,Whole Blood 172 mg/dL (75-99)
--- NOTE | 2016-08-19 12:00 | CDI ---
In responding to this query, please exercise your independent professional judgment. The [facility] Coding Staff and Clinical Documentation Specialists appreciate your assistance in clarifying documentation, maintaining compliance with coding guidelines, accurately documenting patients condition and capturing severity of illness. The fact that a question is asked does not imply that any particular answer is desired or expected. Communication forms are a method of clarifying documentation and are not made part of the Legal Health Record. Thank you in advance for your clarification. Last Revision, May 2015 Zandra Horowitz [address] [place] [address] Documentation Clarification Form Date: 08/18/2016 11:15:00 AM From: Kenna Noemy Admit Date: 08/15/2016 3:44:00 PM Patient Name: Jim Qureshi Visit Number: [id number] Discharge Date: Dr. Jose Farah Patient presents with a BUN28, CR/ 1.70 GFR of: 39 08/17/16 BUN 48, CR 2.20, GFR 29 History/Risk Factors: Chronic Atrial Fibrillation, Chronic systolic heart failure Diabetes mellitus, Hypertension, Hyperlipidemia, Renal disease, Skin CA Clinical Indicators: Presents with complaints of weakness, and cough. Treatment: Monitor Labs In order to capture the severity of condition, please clarify if the condition signifies: Acute renal failure Please specify (if known): Cortical, Medullary, or Tubular Necrosis? Acute kidney injury Acute on chronic renal failure Chronic renal failure, please stage Chronic kidney disease (CKD) and please stage Stage 1 GFR >90 Stage 2 GFR 60-89 Stage 3 GFR 30-59 Stage 4 GFR 15-29 Stage 5 GFR <15 ESRD Unable to determine Other, specify Please document in your progress notes and discharge summary in order to capture severity of illness and risk of mortality. Include clinical findings that support your diagnosis. FYI: Press F11 to launch patient chart. Place X here if this finding has no clinical significance, is not applicable or if you are not able to provide any additional documentation. KIRSTIND
--- NOTE | 2016-08-19 13:09 | P.PN ---
Subjective Principal diagnosis: Cough This is an 81-year-old gentleman with history of atrial fibrillation, diabetes, renal disease, hypertension, hyperlipidemia, AICD implantation, who presented to the hospital mainly with symptoms of cough, nonproductive. Cardiology consultation was requested because of nonsustained ventricular tachycardia. He was seen in consultation yesterday by Dr. Frey, it was felt that the patient had a mild exacerbation of heart failure . Patient is currently having runs of nonsustained ventricular tachycardia on the monitor. He is currently on metoprolol tartrate 50 mg one tablet by mouth daily. Potassium 4.6. Magnesium level 2.3. Patient is currently on by mouth Lasix 20 mg one tablet by mouth twice a day. Objective - Vital Signs Vital signs: Vital Signs Temp 97.2 F L 08/19/16 12:00 Pulse 80 08/19/16 12:44 Resp 16 08/19/16 12:00 BP 102/63 08/19/16 12:00 Pulse Ox 97 08/19/16 12:00 Intake & Output 08/18/16 08/19/16 08/19/16 18:59 06:59 18:59 Intake Total 490 600 130 Output Total 200 900 Balance 290 -300 130 Weight 52.7 kg Intake: IV 30 10 Invasive Line 1 30 Invasive Line 2 10 Oral 460 600 120 Output: Urine 200 900 Other: Voiding Method Toilet Toilet Urinal # Voids 1 - Exam PHYSICAL EXAMINATION: HEENT: Head is atraumatic, normocephalic. Pupils equal, round. Neck is supple. There is no elevated jugular venous pressure. HEART EXAMINATION: Heart S1 and S2 irregular irregular CHEST EXAMINATION: Lungs reveal scattered coarse wheezing throughout ABDOMEN: Soft, nontender. Bowel sounds are heard. No organomegaly noted. EXTREMITIES: 2+ peripheral pulses with 1+ pitting edema , no calf tenderness noted. NEUROLOGIC patient is awake, alert and oriented -3. . - Labs CBC & Chem 7: 08/19/16 06:07 08/19/16 06:07 Labs: Abnormal Lab Results - Last 24 Hours (Table) 08/18/16 08/18/16 08/18/16 Range/Units 16:37 16:42 20:55 Plt Count (150-450) k/uL Sodium (137-145) mmol/L Chloride (98-107) mmol/L BUN (9-20) mg/dL Creatinine (0.66-1.25) mg/dL Glucose (74-99) mg/dL POC Glucose (mg/dL) 323 H 300 H (75-99) mg/dL Total Bilirubin (0.2-1.3) mg/dL Total Protein (6.3-8.2) g/dL Urine Protein Trace H (Negative) 08/19/16 08/19/16 08/19/16 Range/Units 06:07 06:07 06:17 Plt Count 118 L (150-450) k/uL Sodium 133 L (137-145) mmol/L Chloride 95 L (98-107) mmol/L BUN 76 H (9-20) mg/dL Creatinine 2.62 H (0.66-1.25) mg/dL Glucose 206 H (74-99) mg/dL POC Glucose (mg/dL) 183 H (75-99) mg/dL Total Bilirubin 1.4 H (0.2-1.3) mg/dL Total Protein 6.1 L (6.3-8.2) g/dL Urine Protein (Negative) 08/19/16 Range/Units 11:35 Plt Count (150-450) k/uL Sodium (137-145) mmol/L Chloride (98-107) mmol/L BUN (9-20) mg/dL Creatinine (0.66-1.25) mg/dL Glucose (74-99) mg/dL POC Glucose (mg/dL) 172 H (75-99) mg/dL Total Bilirubin (0.2-1.3) mg/dL Total Protein (6.3-8.2) g/dL Urine Protein (Negative) Assessment and Plan (1) Chronic a-fib Status: Acute (2) V-tach Status: Acute (3) AICD (automatic cardioverter/defibrillator) present Status: Acute (4) Systolic CHF, acute on chronic Status: Acute (5) Renal insufficiency Status: Acute (6) HTN (hypertension) Status: Acute (7) Hyperlipemia Status: Acute (8) Nonischemic cardiomyopathy Status: Acute (9) Diabetes Status: Acute (10) NSVT (nonsustained ventricular tachycardia) Status: Acute Plan: From cardiology's perspective, we will recommend to continue the patient on his current medications. Check lytes BUN and creatinine in the morning. DNP note has been reviewed, I agree with a documented findings and plan of care. Patient was seen and examined.
--- NOTE | 2016-08-19 13:16 | P.PN ---
Progress Note - Text This is an addendum to the cardiology progress note dictated earlier today. In view of the increase in nonsustained ventricular tachycardia, we will initiate oral amiodarone. Continue to monitor. DNP note has been reviewed, I agree with a documented findings and plan of care. Patient was seen and examined.
[2016-08-19] MEDS: AMIODARONE 200 MG TAB PO SCH ×2 (14:16→21:08)
--- NOTE | 2016-08-19 16:06 | P.PN ---
Progress Note - Text This is an addendum to the progress note dictated earlier today by cardiology. This afternoon patient is complaining of more shortness of breath, he feels that the day progresses is becoming more and more short of breath. Currently he is on by mouth Lasix. We will get a stat chest x-ray today, depending on results of further recommendations will be made. DNP note has been reviewed, I agree with a documented findings and plan of care. Patient was seen and examined.
--- NOTE | 2016-08-19 16:42 | XR ---
EXAMINATION TYPE: XR chest 2V DATE OF EXAM: 08/19/2016 4:38 PM COMPARISON: NONE TECHNIQUE: PA and lateral views submitted. HISTORY: Shortness of breath FINDINGS: The lungs are clear and there is no pneumothorax, pleural effusion, or focal pneumonia. Heart is enl arged and there is a cardiac device. Hyperinflation suggests COPD. Arthropathy of the shoulders. Dege nerative change of the spine. IMPRESSION: 1. No acute process. Mild cardiomegaly.
[2016-08-19 16:56] LABS: Glucose,Whole Blood 266 mg/dL (75-99)
--- NOTE | 2016-08-19 19:59 | CONS ---
DATE OF CONSULTATION: 08/19/2016 REASON FOR CONSULT: Shortness of breath and cough. HISTORY OF PRESENTING ILLNESS: Mr. Qureshi is an 81-year-old male who was seen, evaluated, and examined on the sixth floor. This patient presented into the emergency department about 4 days ago with increasing shortness of breath, cough and not feeling well and patient was recently evaluated by Dr. Farah in his office due to problems associated with breathing difficulty, cough, generalized weakness, advised to be further evaluated and admitted to hospital. Review of the data appears that patient has not been feeling well for almost couple of weeks with progressive deterioration despite using antibiotics. Patient has been having more shortness of breath than baseline. Patient presented into the emergency department where he was evaluated, and decision was done to put patient into the hospital. He had other comorbidities associated with congestive heart failure and chronic atrial fibrillation as well. Past medical history is significant for: Chronic atrial fibrillation and congestive heart failure, acute on chronic diastolic heart failure, diabetes mellitus, ( ) hypertension, hypertensive cardiovascular disease, history of chronic renal disease, history of skin cancer, history of pacemaker insertion and removal of pacemaker from the right side of face and on the left side, status post cataract extraction. PAST SURGICAL HISTORY: As above. ALLERGIES: FISH OIL, IV DYE, SHELLFISH AND COUMADIN. Medications at home include: 1. Tramadol. 2. Ultram 50 mg 3 times a day. 3. Toprol-XL 50 mg daily. 4. Lasix 40 mg daily. 5. Eye drops. 6. Also on Ceftin 500 b.i.d. 7. Sliding scale insulin. 8. Rivastigmine 1.5 mg 2 times a day. 9. Isordil 10 mg 3 times a day. 10. Eliquis 2.5 mg b.i.d. 11. Hydralazine 25-2 times a day. 12. Multivitamins. 13. Mevacor 40 mg daily. 14. Levemir 23 units daily. 15. Digoxin 125 mcg every other day. Current medications while in the hospital includes: 1. DuoNeb unit dose updraft 4 times a day and as needed. 2. Also on amiodarone 400 mg 2 times a day. 3. Eliquis 2.5 b.i.d. 4. Lipitor 10 mg daily. 5. Ceftin 500 mg daily. 6. Aricept 5 mg daily. 7. Cosopt eye drops. 8. Lasix 20 mg p.o. 2 times a day. 9. Also on Levemir. 10. Sliding scale insulin. 11. Solu-Medrol 40 IV q12. 12. Metoprolol 50 mg daily. 13. Multivitamin as needed. 14. Protonix 40 mg daily. 15. Ultram 50 mg daily. FAMILY HISTORY AND SOCIAL HISTORY: Otherwise unremarkable and noncontributory. Denies any ethanol abuse or substance use. Patient is a nonsmoker and lives with his family along with his . 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 CARDIORESPIRATORY: Otherwise unremarkable and noncontributory. Does have cough and sputum production. GI/: Unremarkable. MUSCULOSKELETAL: Unremarkable and noncontributory except as dictated above. On examination: His most recent vitals include blood pressure is 121/78, respiratory rate 18 to 20, heart rate is 80, temperature is 98, saturation of 98% on 2 liters oxygen. HEENT EXAMINATION: Otherwise atraumatic, normocephalic. Pharynx is clear without any exudate. NECK: Supple without any lymphadenopathy, jugular venous distention or carotid bruit. Neck veins are prominent though. No bruits present. Examination of the lungs poor air entry is present without significant rales, rhonchi, or rub. Fine expiratory wheezing present on forced expiration. HEART: Regular rate and rhythm. S1 and S2 audible. ABDOMEN: Soft. No rebound or rigidity. EXTREMITIES: +1 peripheral pulses. NEUROLOGICAL EXAMINATION: Otherwise, awake and alert. No focal neurological deficits. Chest x-ray performed today reviewed and compared with the prior x-ray. No obvious pathology is seen. Early COPD-like changes cannot be excluded. ( ) x-ray performed on 08/16 and 08/15 has been reviewed as well. Other laboratory data reviewed. The white cell count is 7800, hemoglobin 14 and hematocrit 43, platelet 118,000. Sodium is 130, potassium 4.7. BUN and creatinine is slowly going up to 76 and 2.62 up from 28 and 1.7 4 days ago. Glucose is up to 206, troponin evaluated 0.44 and 0.041 on arrival. Alkaline phosphatase was 170, now came down to 126. Urinalysis is unremarkable. Echocardiogram performed on 08/16 revealed a very poor ejection fraction of less than 20%, normal LA. IMPRESSION: 1. Cough, congestion and shortness of breath, likely appears to be tracheobronchitis with possible ( ) of acute asthma. The patient is adequately treated with breathing treatments as needed and steroids. Will add empiric antibiotics. Will check nasopharyngeal swab for flu as well. 2. Acute on chronic atrial fibrillation, well anticoagulated with Eliquis, rate is well under control. 3. Cardiomyopathy with acute on chronic systolic dysfunction with significant heart failure, ejection fraction less than 20%. 4. Renal failure with progressively rise in BUN and creatinine, likely combination of diuresis as well as severe degree of cardiomyopathy. 5. Generalized weakness and medical debility multifactorial with worsening related to tracheobronchitis. PLAN: To add oral antibiotics, check influenza, continue steroids, breathing treatments. Would recommend to lower down the diuresis. Will follow.
[2016-08-19 20:54] LABS: Glucose,Whole Blood 262 mg/dL (75-99)
[2016-08-19] MEDS: ATORVASTATIN 10 MG TAB PO SCH (21:09)
[2016-08-19] MEDS: OSELTAMIVIR 75 MG CAP PO SCH (21:10)
[2016-08-20] MEDS: traMADol 50 MG TAB PO PRN (03:38)
[2016-08-20 06:05] LABS: Glucose,Whole Blood 186 mg/dL (75-99)
[2016-08-20] MEDS: INSULIN LISPRO (humaLOG) 300 UNIT/3 ML VIAL SQ SCH ×4 (06:35→22:34)
[2016-08-20] MEDS: PANTOPRAZOLE 40 MG TABLET PO SCH (06:36)
[2016-08-20] MEDS: IPRATROPIUM-ALBUTEROL 3 ML NEB INHALATION PRN (07:16)
--- NOTE | 2016-08-20 08:41 | P.PN ---
Subjective Principal diagnosis: Continued cough with dark urine. This is an 81-year-old white male essentially admitted for worsening cough and congestion. Chest x-ray did show some possible mild congestion. He still continued bouts of cough. He has an underlying history of atrial fibrillation and Stated systolic congestive heart failure. He states every time he urinates that his urine is dark. Otherwise, influenza testing is positive yesterday. He is now started on Tamiflu. Objective - Vital Signs Vital signs: Vital Signs Temp 97.0 F L 08/20/16 04:00 Pulse 76 08/20/16 07:27 Resp 18 08/20/16 04:00 BP 91/59 08/20/16 04:00 Pulse Ox 96 08/20/16 04:00 Intake & Output 08/19/16 08/20/16 08/20/16 18:59 06:59 18:59 Intake Total 605 300 180 Output Total 850 Balance 605 -550 180 Weight 52.5 kg Intake: IV 10 Invasive Line 2 10 Oral 595 300 180 Output: Urine 850 Other: Voiding Method Toilet Toilet # Voids 1 1 - Constitutional General appearance: Present: thin - EENT Eyes: Absent: abnormal pupil - Respiratory Respiratory: bilateral: diminished - Cardiovascular Rhythm: regular Heart sounds: normal: S1, S2 - Gastrointestinal General gastrointestinal: Present: soft. Absent: tenderness - Integumentary Integumentary: Absent: rash - Labs CBC & Chem 7: 08/19/16 06:07 08/19/16 06:07 Labs: Abnormal Lab Results - Last 24 Hours (Table) 08/19/16 08/19/16 08/19/16 Range/Units 11:35 16:50 18:26 POC Glucose (mg/dL) 172 H 266 H (75-99) mg/dL Influenza Type B (PCR) Detected A (Not Detectd) 08/19/16 08/20/16 Range/Units 20:53 06:03 POC Glucose (mg/dL) 262 H 186 H (75-99) mg/dL Influenza Type B (PCR) (Not Detectd) Assessment and Plan (1) Afib Status: Acute (2) Bronchospasm with bronchitis, acute Status: Acute (3) Dyspnea Status: Acute (4) AICD (automatic cardioverter/defibrillator) present Status: Acute (5) Diabetes Status: Acute (6) Influenza B Status: Acute Plan: Check urinalysis if not done on admission. Continue current regimen of antibiotic treatment. Question need for pulmonology if no significant improvement. Check CBC and CMP in a.m.
[2016-08-20] MEDS: CEFUROXIME 250 MG TAB PO SCH (08:59)
[2016-08-20] MEDS: APIXABAN 2.5 MG TABLET PO SCH ×2 (08:59→22:25)
[2016-08-20] MEDS: methylPREDNISolone SOD SUCCI 40 MG/ML 1 ML VIAL IV SCH ×2 (08:59→22:26)
[2016-08-20] MEDS: METOPROLOL SUCCINATE (ER) 50 MG TAB.ER.24H PO SCH (08:59)
[2016-08-20] MEDS: OSELTAMIVIR 75 MG CAP PO SCH (08:59)
[2016-08-20] MEDS: AMIODARONE 200 MG TAB PO SCH ×2 (09:00→22:25)
[2016-08-20] MEDS: FUROSEMIDE 20 MG TAB PO SCH (09:00)
[2016-08-20] MEDS: DONEPEZIL 5 MG TAB PO SCH (09:00)
[2016-08-20] MEDS: INSULIN DETEMIR 100 UNIT/ML 10 ML VIAL SQ SCH (09:00)
[2016-08-20] MEDS: MULTIVITAMINS, THERA 1 EACH TAB PO SCH (09:01)
--- NOTE | 2016-08-20 11:15 | PN ---
Mr. Qureshi who is an 81-year-old male, seen, evaluated, and examined. Came into hospital with increased cough, congestion, shortness of breath and generalized weakness. Patient is being treated for acute COPD exacerbation and tracheobronchitis. Has been placed on empiric broad-spectrum antibiotics along with breathing treatments and steroids. Hemodynamic status is stable. Last set of vitals include blood pressure is 90/60, respiratory rate 17, pulse 73, temperature 98, saturation 97%. HEENT EXAMINATION: Otherwise unremarkable. NECK: Supple. LUNGS: Good air entry bilaterally with fine expiratory rhonchi. HEART: Regular rate and rhythm. Abdomen is soft. NEUROLOGICAL EXAMINATION: Otherwise, awake and alert. Labs reviewed. Medications reviewed. Currently patient is on DuoNeb unit dose updraft as needed, Cordarone 600 mg p.o. 2 times a day, Eliquis 2.5 mg b.i.d., Lipitor 10 mg daily, Ceftin 500 daily, Aricept. Also on Cosopt, Lasix, Guaifenesin, sliding scale insulin, Solu-Medrol 40 q.12, Toprol, multivitamin, Tamiflu 75 q.12. Also on Protonix and Tramadol. The lab results are reviewed. Influenza B came back positive. Patient has been placed on Tamiflu. IMPRESSION: 1. Influenza pneumonia. 2. Acute chronic obstructive pulmonary disease exacerbation. 3. Severe degree of cardiomyopathy with ejection fraction only 20% or even less. 4. Chronic atrial fibrillation, anticoagulated with Eliquis. Plan is to continue antibiotics. Continue supportive care. Follow clinical course closely. Maintain patient on Tamiflu along with empiric antibiotics, breathing treatments and steroids. Will follow.
[2016-08-20 11:40] LABS: Glucose,Whole Blood 135 mg/dL (75-99)
--- NOTE | 2016-08-20 11:58 | P.PN ---
Subjective Principal diagnosis: Cough This is an 81-year-old gentleman with history of atrial fibrillation, diabetes, renal disease, hypertension, hyperlipidemia, AICD implantation, who presented to the hospital mainly with symptoms of cough, nonproductive. Cardiology consultation was requested because of nonsustained ventricular tachycardia. It was felt that the patient had a mild exacerbation of heart failure, as well as exacerbation of COPD . Patient was initiated on amiodarone yesterday for frequent runs of nonsustained ventricular tachycardia. He also felt short of breath and achy in the afternoon, chest x-ray was performed which did not reveal any evidence of heart failure. Influenza test was also done which was positive for influenza B. Creatinine today 2.6. We will hold patient 's dose of Lasix today completely. Monitor creatinine closely. Objective - Vital Signs Vital signs: Vital Signs Temp 97.6 F 08/20/16 09:05 Pulse 82 08/20/16 09:05 Resp 18 08/20/16 09:05 BP 104/60 08/20/16 09:05 Pulse Ox 93 L 08/20/16 09:05 Intake & Output 08/19/16 08/20/16 08/20/16 18:59 06:59 18:59 Intake Total 605 300 180 Output Total 850 Balance 605 -550 180 Weight 52.5 kg Intake: IV 10 Invasive Line 2 10 Oral 595 300 180 Output: Urine 850 Other: Voiding Method Toilet Toilet Toilet # Voids 1 1 - Exam PHYSICAL EXAMINATION: HEENT: Head is atraumatic, normocephalic. Pupils equal, round. Neck is supple. There is no elevated jugular venous pressure. HEART EXAMINATION: Heart S1 and S2 irregular irregular CHEST EXAMINATION: Lungs reveal scattered coarse wheezing throughout ABDOMEN: Soft, nontender. Bowel sounds are heard. No organomegaly noted. EXTREMITIES: 2+ peripheral pulses with 1+ pitting edema , no calf tenderness noted. NEUROLOGIC patient is awake, alert and oriented -3. . - Labs CBC & Chem 7: 08/19/16 06:07 08/19/16 06:07 Labs: Abnormal Lab Results - Last 24 Hours (Table) 08/19/16 08/19/16 08/19/16 Range/Units 16:50 18:26 20:53 POC Glucose (mg/dL) 266 H 262 H (75-99) mg/dL Influenza Type B (PCR) Detected A (Not Detectd) 08/20/16 08/20/16 Range/Units 06:03 11:34 POC Glucose (mg/dL) 186 H 135 H (75-99) mg/dL Influenza Type B (PCR) (Not Detectd) Assessment and Plan (1) Chronic a-fib Status: Acute (2) V-tach Status: Acute (3) AICD (automatic cardioverter/defibrillator) present Status: Acute (4) Systolic CHF, acute on chronic Status: Acute (5) Renal insufficiency Status: Acute (6) HTN (hypertension) Status: Acute (7) Hyperlipemia Status: Acute (8) Nonischemic cardiomyopathy Status: Acute (9) Diabetes Status: Acute (10) NSVT (nonsustained ventricular tachycardia) Status: Acute (11) Influenza B Status: Acute Plan: From cardiology's perspective, we will discontinue the patient's Lasix. Monitor creatinine closely. We will follow this patient with you now on an as- needed basis only, please don't hesitate to call with any questions. DNP note has been reviewed, I agree with a documented findings and plan of care. Patient was seen and examined.
[2016-08-20] MEDS: IPRATROPIUM-ALBUTEROL 3 ML NEB INHALATION SCH ×3 (12:01→19:22)
[2016-08-20] MEDS: DORZOLAMIDE-TIMOLOL 2-0.5% DROPS 10 ML BTL BOTH EYES SCH ×2 (12:23→23:00)
[2016-08-20 16:49] LABS: Glucose,Whole Blood 99 mg/dL (75-99)
[2016-08-20 21:19] LABS: Glucose,Whole Blood 78 mg/dL (75-99)
[2016-08-20] MEDS: ATORVASTATIN 10 MG TAB PO SCH (22:26)
[2016-08-21 02:11] LABS: Glucose,Whole Blood 134 mg/dL (75-99)
[2016-08-21 06:05] LABS: Glucose,Whole Blood 153 mg/dL (75-99)
[2016-08-21 06:29] LABS: CH 29.4; CHCM 32.4; HCT 47.7 % (39.0-53.0); HDW 2.41; HGB 15.3 gm/dL (13.0-17.5); MCH 29.1 pg (25.0-35.0); MCV 91.2 fL (80.0-100.0); Mean Platelet Volume 8.6; RBC 5.23 m/uL (4.30-5.90); RDW 14.1 % (11.5-15.5); WBC 10.1 k/uL (3.8-10.6)
[2016-08-21 06:44] LABS: Calcium 9.6 mg/dL (8.4-10.2); Potassium 5.2 mmol/L (3.5-5.1); Total Bilirubin 1.8 mg/dL (0.2-1.3); Total Protein 6.4 g/dL (6.3-8.2)
[2016-08-21] MEDS: INSULIN LISPRO (humaLOG) 300 UNIT/3 ML VIAL SQ SCH ×4 (06:44→20:42)
[2016-08-21] MEDS: PANTOPRAZOLE 40 MG TABLET PO SCH (06:45)
[2016-08-21] MEDS: SODIUM CHLORIDE 0.9% 1,000 ML IV SCH ×2 (07:17→17:44)
--- NOTE | 2016-08-21 08:30 | P.PN ---
Subjective Principal diagnosis: Influenza with respiratory distress. This is a continue progress on an 81-year-old white male essentially admitted for weakness and element of bronchitis. Influenza test was positive. Appreciate cardiology and pulmonology input. He states significant weakness. I do question if he needs rehab element. He states poor appetite. No voiding difficulties are stated however. No significant diarrhea. Objective - Vital Signs Vital signs: Vital Signs Temp 96.4 F L 08/21/16 04:00 Pulse 63 08/21/16 04:00 Resp 18 08/21/16 04:00 BP 106/53 08/21/16 04:00 Pulse Ox 99 08/21/16 04:00 Intake & Output 08/20/16 08/21/16 08/21/16 18:59 06:59 18:59 Intake Total 380 Output Total 0 Balance 380 Weight 52.4 kg Intake: Oral 380 Output: Urine 0 Other: Voiding Method Toilet Toilet # Voids 1 - Constitutional General appearance: Present: thin - EENT Eyes: Absent: abnormal pupil - Respiratory Respiratory: bilateral: diminished - Cardiovascular Rhythm: regular Heart sounds: normal: S1, S2 - Gastrointestinal General gastrointestinal: Present: soft. Absent: tenderness - Integumentary Integumentary: Absent: rash - Musculoskeletal Musculoskeletal: Present: generalized weakness - Labs CBC & Chem 7: 08/21/16 05:59 08/21/16 05:59 Labs: Abnormal Lab Results - Last 24 Hours (Table) 08/20/16 08/21/16 08/21/16 Range/Units 11:34 02:09 05:59 Plt Count 117 L (150-450) k/uL Sodium (137-145) mmol/L Potassium (3.5-5.1) mmol/L Chloride (98-107) mmol/L BUN (9-20) mg/dL Creatinine (0.66-1.25) mg/dL Glucose (74-99) mg/dL POC Glucose (mg/dL) 135 H 134 H (75-99) mg/dL Total Bilirubin (0.2-1.3) mg/dL 08/21/16 08/21/16 Range/Units 05:59 06:04 Plt Count (150-450) k/uL Sodium 135 L (137-145) mmol/L Potassium 5.2 H (3.5-5.1) mmol/L Chloride 96 L (98-107) mmol/L BUN 104 H* (9-20) mg/dL Creatinine 2.90 H (0.66-1.25) mg/dL Glucose 159 H (74-99) mg/dL POC Glucose (mg/dL) 153 H (75-99) mg/dL Total Bilirubin 1.8 H (0.2-1.3) mg/dL Assessment and Plan (1) Afib Status: Acute (2) Bronchospasm with bronchitis, acute Status: Acute (3) Dyspnea Status: Acute (4) AICD (automatic cardioverter/defibrillator) present Status: Acute (5) Diabetes Status: Acute (6) Influenza B Status: Acute Plan: Increase by mouth intake. The patient is requesting Boost/ensure. Increase ambulation. Discharge following for possible rehab/ECF given his overall weakness. Otherwise, minimal improvement compared to yesterday clinically he seems better from a respiratory perspective. Check CBC and CMP in a.m. Time with Patient: Less than 30
[2016-08-21] MEDS: IPRATROPIUM-ALBUTEROL 3 ML NEB INHALATION SCH ×5 (09:09→20:08)
[2016-08-21] MEDS: MULTIVITAMINS, THERA 1 EACH TAB PO SCH (09:23)
[2016-08-21] MEDS: FUROSEMIDE 20 MG TAB PO SCH (09:23)
[2016-08-21] MEDS: DONEPEZIL 5 MG TAB PO SCH (09:23)
[2016-08-21] MEDS: AMIODARONE 200 MG TAB PO SCH ×2 (09:23→19:55)
[2016-08-21] MEDS: APIXABAN 2.5 MG TABLET PO SCH ×2 (09:24→19:55)
[2016-08-21] MEDS: CEFUROXIME 250 MG TAB PO SCH (09:24)
[2016-08-21] MEDS: DORZOLAMIDE-TIMOLOL 2-0.5% DROPS 10 ML BTL BOTH EYES SCH ×2 (09:25→19:55)
[2016-08-21] MEDS: METOPROLOL SUCCINATE (ER) 50 MG TAB.ER.24H PO SCH (09:25)
[2016-08-21] MEDS: INSULIN DETEMIR 100 UNIT/ML 10 ML VIAL SQ SCH (09:32)
[2016-08-21 11:46] LABS: Glucose,Whole Blood 156 mg/dL (75-99)
[2016-08-21] MEDS: OSELTAMIVIR 60 MG/10 ML ORAL SYRINGE PO SCH (12:04)
[2016-08-21] MEDS: predniSONE 20 MG TAB PO SCH (12:04)
[2016-08-21] MEDS ORDERED: HYDROmorphone 1 MG/ML 1 ML SYRINGE IVP PRN (17:27)
[2016-08-21 17:57] LABS: Glucose,Whole Blood 68 mg/dL (75-99)
[2016-08-21 18:06] LABS: Glucose,Whole Blood 76 mg/dL (75-99)
[2016-08-21] MEDS: ONDANSETRON 4 MG/2 ML VIAL IVP PRN (19:04)
[2016-08-21] MEDS: ATORVASTATIN 10 MG TAB PO SCH (19:55)
[2016-08-21 20:49] LABS: Glucose,Whole Blood 43 mg/dL (75-99)
[2016-08-21] MEDS ORDERED: DEXTROSE 50%-WATER 50 ML SYRINGE IVP STA (20:54)
[2016-08-21 21:09] LABS: Glucose,Whole Blood 275 mg/dL (75-99)
--- NOTE | 2016-08-21 21:20 | PN ---
DATE OF SERVICE: 08/21/2016 Mr. Jim Qureshi is an 81-year-old male who was seen, evaluated, examined. The patient has been found to have influenza, pneumonia and acute COPD exacerbation. He has severe degree of cardiomyopathy with very low ejection fraction of less than 20%. Patient is extremely weak, but relatively more awake. Breathing, still has shortness of breath. Appetite has been very poor. Hemodynamic status is marginal, 100/70, respiratory rate 16, pulse 82, temperature 98, saturation 98% on 2L oxygen. HEENT: Unremarkable. NECK: Supple. LUNGS: Good air entry bilaterally without significant rales, rhonchi or rub. HEART: Regular rate and rhythm. S1 and S2 audible. ABDOMEN: Soft. No rebound or rigidity. EXTREMITIES: +1 peripheral pulses. NEUROLOGICAL: Otherwise, awake and alert. Laboratory data reviewed. Medications reviewed as well. CBC within normal limits, platelet count is 17,000. Sodium 135, potassium 5.2. BUN and creatinine is 104 and 2.9. IMPRESSION: 1. Acute chronic obstructive pulmonary disease exacerbation. 2. Influenza, pneumonia. 3. Developing acute on chronic renal failure. 4. Cardiomyopathy with very poor ejection fraction and acute on chronic systolic heart failure. 5. Chronic atrial fibrillation. 6. History of intermittent ventricular tachycardia. PLAN AND RECOMMENDATION: Continue supportive care. Follow clinical course closely. Monitor renal functions closely. I agree with holding down the Lasix, as renal functions are progressively getting worse. If continue to worsen, then will consider obtaining a renal consultation. Overall prognosis, however, is very poor.
--- NOTE | 2016-08-21 21:31 | XR ---
EXAMINATION TYPE: XR chest 1V portable DATE OF EXAM: 08/21/2016 6:38 PM COMPARISON: August 19, 2016 at 4:37 PM HISTORY: Dyspnea TECHNIQUE: Portable AP upright FINDINGS: Pacemaker noted again. Moderately enlarged cardiac silhouette. There is no focal air space opacity, pleural effusion, or pneumothorax seen. The osseous structures are intact. IMPRESSION: No acute pleural-parenchymal process.
[2016-08-21 21:40] LABS: Basophils % (A) 0 %; CH 29.9; CHCM 32.3; Eosinophils % (A) 0 %; HCT 52.5 % (39.0-53.0); HDW 2.45; HGB 16.2 gm/dL (13.0-17.5); Luc # (Auto) 0.17; Luc % (Auto) 1; Lymphocytes # (A) 0.6 k/uL (1.0-4.8); Lymphocytes % (A) 5 %; MCH 28.8 pg (25.0-35.0); MCHC 30.9 g/dL (31.0-37.0); MCV 93.1 fL (80.0-100.0); Mean Platelet Volume 10.2; Monocytes # (A) 1.1 k/uL (0-1.0); Monocytes % (A) 7 %; Neutrophils # (A) 12.2 k/uL (1.3-7.7); Neutrophils % (A) 86 %; RBC 5.63 m/uL (4.30-5.90); RDW 14.3 % (11.5-15.5); WBC 14.1 k/uL (3.8-10.6); WBC (Perox) 14.45
--- NOTE | 2016-08-21 21:42 | XR ---
EXAMINATION TYPE: XR abdomen 1V DATE OF EXAM: 08/21/2016 9:12 PM COMPARISON: December 06, 2011 HISTORY: Abdominal pain and low blood sugar with history of hernia repair and cholecystectomy TECHNIQUE: Single supine view of the abdomen and pelvis FINDINGS: There is gastric distention of the stomach without dilation of the stomach. Bowel gas patte rn otherwise unremarkable. No bowel obstruction or pneumatosis. Prominent pancolonic stool is inciden tally noted. Note: Pneumoperitoneum cannot be excluded with supine radiography. There is no definite radiographic evidence of mass or mass effect or abnormal calcification. No acute skeletal finding. IMPRESSION: No definite acute radiographic process, although constipation is evident.
[2016-08-21 21:48] LABS: Calcium 8.6 mg/dL (8.4-10.2); Potassium 4.9 mmol/L (3.5-5.1)
[2016-08-21] MEDS: DEXTROSE 5%-0.9% NACL 1,000 ML IV SCH (22:17)
[2016-08-21 22:23] LABS: Glucose,Whole Blood 158 mg/dL (75-99)
[2016-08-21] MEDS: IPRATROPIUM-ALBUTEROL 3 ML NEB INHALATION PRN (23:51)
[2016-08-22] MEDS: ONDANSETRON 4 MG/2 ML VIAL IVP PRN (00:30)
[2016-08-22 02:44] LABS: Glucose,Whole Blood 99 mg/dL (75-99)
[2016-08-22] MEDS: traMADol 50 MG TAB PO PRN (05:35)
[2016-08-22] MEDS: PANTOPRAZOLE 40 MG TABLET PO SCH ×2 (06:16→09:43)
[2016-08-22 06:51] LABS: CH 29.1; CHCM 31.2; HCT 55.1 % (39.0-53.0); HGB 17.2 gm/dL (13.0-17.5); Hypochromasia Slight; MCH 29.3 pg (25.0-35.0); MCHC 31.2 g/dL (31.0-37.0); MCV 93.7 fL (80.0-100.0); Mean Platelet Volume 9.6; RBC 5.89 m/uL (4.30-5.90); RDW 14.3 % (11.5-15.5); WBC 14.1 k/uL (3.8-10.6)
[2016-08-22] MEDS: INSULIN LISPRO (humaLOG) 300 UNIT/3 ML VIAL SQ SCH ×4 (06:56→20:55)
[2016-08-22 07:02] LABS: Calcium 9.1 mg/dL (8.4-10.2); Potassium 5.4 mmol/L (3.5-5.1); Total Bilirubin 2.8 mg/dL (0.2-1.3); Total Protein 6.3 g/dL (6.3-8.2)
[2016-08-22 07:20] LABS: Glucose,Whole Blood 75 mg/dL (75-99)
--- NOTE | 2016-08-22 08:02 | P.NPCON ---
History of Present Illness - Reason for Consult acute renal failure - History of Present Illness Reason for consultation: Acute kidney injury on chronic kidney disease History of present illness: Patient is a 81-year-old male seen in renal consultation for acute kidney injury on chronic kidney disease. 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 It has been gradually worsening over the last few days and is up to 3.67 today with a BUN of 117. Patient has history of systolic CHF with an ejection fraction of less than 20%. He presented with dyspnea and is currently being treated for influenza pneumonia. He was receiving IV diuretics upon admission which was transitioned over to oral diuretics. Lasix was discontinued yesterday. He's had no urine output overnight. His blood pressures have been in the systolic 90s to 100s. Patient is quite weak. He appears lethargic. He is also been having intermittent vomiting. His appetite is poor. Vital signs are stable. General: The patient appeared well nourished and normally developed. HEENT: Head exam is unremarkable. Neck is without jugular venous distension. LUNGS: Diffuse rhonchi. Breath sounds decreased. HEART: Rate and Rhythm are regular. First and second heart sounds normal. No murmurs, rubs or gallops. ABDOMEN: Abdominal exam reveals normal bowel sounds. Non-tender and non- distended. No evidence of peritonitis. EXTREMITITES: No clubbing, cyanosis, or edema. Past Medical History Past Medical History: Atrial Fibrillation, Heart Failure, Diabetes Mellitus, Hypertension, Renal Disease, Skin Disorder Additional Past Medical History / Comment(s): skin CA, "/PT STATED NEVER HAD HIGH BP", BRONCHITS/BRONCHOSPASM JUN 2016 History of Any Multi-Drug Resistant Organisms: None Reported Past Surgical History: AICD, Cholecystectomy, Hernia Repair Additional Past Surgical History / Comment(s): defibrillator, cataracts removed , skin CA removed from face Past Anesthesia/Blood Transfusion Reactions: No Reported Reaction Type of Cardiac Device: AICD Device Placement Date:: 07-28-11 Past Psychological History: No Psychological Hx Reported Additional Psychological History / Comment(s): Pt resides with his spouse of 53 yrs. He is independent. He drives. Smoking Status: Never smoker Past Alcohol Use History: None Reported Past Drug Use History: None Reported - Past Family History Mother History Unknown: Yes Additional Family Medical History / Comment(s): Pt does not know parents history -he was raised in foster care. Son(s) Family Medical History: AFIB Additional Family Medical History / Comment(s): son had heart transplant Medications and Allergies Home Medications Medication Instructions Recorded Confirmed Type Digoxin [Lanoxin] 125 mcg PO Q48H 09/03/14 08/15/16 History Insulin Detemir [Levemir Flextouch] 22 units SQ QAM 09/03/14 08/15/16 History Lovastatin [Mevacor] 40 mg PO HS 09/03/14 08/15/16 History Multivitamins, Thera [Multivitamin] 1 tab PO DAILY 09/03/14 08/15/16 History hydrALAZINE HCL [Apresoline] 25 mg PO TID 09/03/14 08/15/16 History Apixaban [Eliquis] 2.5 mg PO BID 01/18/16 08/15/16 History Isosorbide Dinitrate [Isordil] 10 mg PO TID 01/18/16 08/15/16 History Rivastigmine Tartrate 1.5 mg PO BID 01/18/16 08/15/16 History [Rivastigmine] Insulin Aspart [NovoLOG Flexpen] See Protocol SQ AC-TID 06/23/16 08/15/16 History Cefuroxime [Ceftin] 500 mg PO BID 08/15/16 08/15/16 History Dorzolamide/Timolol/Pf [Cosopt Pf 1 applicator BOTH EYES BID 08/15/16 08/15/16 History 2%/5% Ophth Droperette] Furosemide [Lasix] 40 mg PO DAILY 08/15/16 08/15/16 History Metoprolol Succinate [Toprol XL] 50 mg PO DAILY 08/15/16 08/15/16 History traMADol HCL [Ultram] 50 mg PO Q6HR PRN 08/15/16 08/15/16 History Allergies Allergy/AdvReac Type Severity Reaction Status Date / Time fish oil Allergy Unknown Verified 08/15/16 13:09 Iodinated Contrast Media - Allergy Rash/Hives Verified 08/15/16 13:09 Oral and [Iodinated Contrast Media - IV Dye] shellfish derived Allergy Rash/Hives Verified 08/15/16 13:09 warfarin sodium Allergy Unknown Verified 08/15/16 13:09 [From Coumadin] Physical Exam Vitals: Vital Signs Temp Pulse Pulse Pulse Resp BP Pulse Ox 08/22/16 05:00 77 16 115/79 08/22/16 00:04 65 08/22/16 00:00 49 L 16 94/58 98 08/21/16 23:51 65 08/21/16 20:17 65 08/21/16 20:10 65 08/21/16 20:00 97.5 F L 53 L 16 98/70 95 08/21/16 16:00 97.7 F 61 82 16 100/59 97 08/21/16 12:00 97.9 F 62 82 16 99/68 98 08/21/16 08:00 97.7 F 63 58 L 18 102/71 97 Intake and Output 08/21/16 08/22/16 08/22/16 22:59 06:59 14:59 Intake Total 500 Output Total 0 Balance 500 Intake: IV 500 Dextrose 5%-0.9% NaCl 1, 300 000 ml @ 60 mls/hr IV . [id number] [facility] Rx#:[id number] Sodium Chloride 0.9% 1, 200 000 ml @ 100 mls/hr IV . Q10H [facility] Rx#:[id number] Output: Urine 0 Other: Voiding Method Toilet Results - Lab Results Most recent lab results Calcium 9.1 mg/dL (8.4-10.2) 08/22/16 06:15 Magnesium 2.3 mg/dL (1.6-2.3) 08/19/16 06:07 08/22/16 06:15 08/22/16 06:15 Assessment and Plan Plan: Assessment: #1. Oliguric acute kidney injury secondary to ischemic ATN secondary to sepsis and diuresis. Creatinine up to 3.67 today. BUN also elevated related to acute kidney injury as well as steroids. #2. Chronic kidney disease stage III with baseline creatinine near 1.6 secondary to nephrosclerosis and cardiorenal syndrome. Urinalysis is quite benign. #3. Influenza pneumonia. #4. Systolic CHF with ejection fraction of less than 20%. Compensated. No evidence of fluid overload on chest x-ray. #5. Hypovolemic hyponatremia. Improving. Sodium up to 137 today. Plan: Start normal saline to be run at 80 mL an hour. Strict I's and O's. Check postvoid residual and a renal ultrasound. Avoid nephrotoxic agents and hypotensive episodes. Encourage oral intake as tolerated. was present at bedside. I discussed with her the possible need for renal replacement therapy in the next 24-48 hours if no improvement in renal function and urine output. At this time she is willing to proceed with whatever is necessary. Thank you for the consultation. I will continue to follow the patient with you during his hospital stay.
--- NOTE | 2016-08-22 08:15 | P.PN ---
Subjective Principal diagnosis: Acute renal failure. This is an 81-year-old white male essentially admitted for restaurant distress found have influenza B. He's been having difficulty with significant nausea vomiting and decreased urine output. The patient has not developed acute renal failure. Appreciate nephrology input, consultation was instituted. He states significant fatigue. I had a long discussion with his . No fever or chills this morning. However, his hands are cold. Voiding as above. Objective - Vital Signs Vital signs: Vital Signs Temp 97.5 F L 08/21/16 20:00 Pulse 77 08/22/16 05:00 Resp 16 08/22/16 05:00 BP 115/79 08/22/16 05:00 Pulse Ox 98 08/22/16 00:00 Intake & Output 08/21/16 08/22/16 08/22/16 18:59 06:59 18:59 Intake Total 552 500 Output Total 400 0 Balance 152 500 Intake: IV 500 Dextrose 5%-0.9% NaCl 1, 300 000 ml @ 60 mls/hr IV . [id number] [facility] Rx#:[id number] Sodium Chloride 0.9% 1, 200 000 ml @ 100 mls/hr IV . Q10H [facility] Rx#:[id number] Oral 552 Output: Urine 400 0 Other: Voiding Method Toilet - Constitutional General appearance: Present: thin - EENT Eyes: Absent: abnormal pupil - Respiratory Respiratory: bilateral: CTA - Cardiovascular Rhythm: regular Heart sounds: normal: S1, S2 - Gastrointestinal General gastrointestinal: Present: soft. Absent: tenderness - Integumentary Integumentary: Absent: rash - Labs CBC & Chem 7: 08/22/16 06:15 08/22/16 06:15 Labs: Abnormal Lab Results - Last 24 Hours (Table) 08/21/16 08/21/16 08/21/16 Range/Units 11:44 17:29 20:39 WBC (3.8-10.6) k/uL Hct (39.0-53.0) % MCHC (31.0-37.0) g/dL Plt Count (150-450) k/uL Neutrophils # (1.3-7.7) k/uL Lymphocytes # (1.0-4.8) k/uL Monocytes # (0-1.0) k/uL Sodium (137-145) mmol/L Potassium (3.5-5.1) mmol/L Chloride (98-107) mmol/L Carbon Dioxide (22-30) mmol/L BUN (9-20) mg/dL Creatinine (0.66-1.25) mg/dL Glucose (74-99) mg/dL POC Glucose (mg/dL) 156 H 68 L 43 L (75-99) mg/dL Total Bilirubin (0.2-1.3) mg/dL 08/21/16 08/21/16 08/21/16 Range/Units 20:53 21:19 21:27 WBC 14.1 H (3.8-10.6) k/uL Hct (39.0-53.0) % MCHC 30.9 L (31.0-37.0) g/dL Plt Count 121 L (150-450) k/uL Neutrophils # 12.2 H (1.3-7.7) k/uL Lymphocytes # 0.6 L (1.0-4.8) k/uL Monocytes # 1.1 H (0-1.0) k/uL Sodium (137-145) mmol/L Potassium (3.5-5.1) mmol/L Chloride (98-107) mmol/L Carbon Dioxide (22-30) mmol/L BUN (9-20) mg/dL Creatinine (0.66-1.25) mg/dL Glucose (74-99) mg/dL POC Glucose (mg/dL) 275 H 158 H (75-99) mg/dL Total Bilirubin (0.2-1.3) mg/dL 08/21/16 08/22/16 08/22/16 Range/Units 21:27 06:15 06:15 WBC 14.1 H (3.8-10.6) k/uL Hct 55.1 H (39.0-53.0) % MCHC (31.0-37.0) g/dL Plt Count 143 L (150-450) k/uL Neutrophils # (1.3-7.7) k/uL Lymphocytes # (1.0-4.8) k/uL Monocytes # (0-1.0) k/uL Sodium 132 L (137-145) mmol/L Potassium 5.4 H (3.5-5.1) mmol/L Chloride 96 L 97 L (98-107) mmol/L Carbon Dioxide 21 L (22-30) mmol/L BUN 108 H* 117 H* (9-20) mg/dL Creatinine 3.23 H 3.67 H (0.66-1.25) mg/dL Glucose 179 H 70 L (74-99) mg/dL POC Glucose (mg/dL) (75-99) mg/dL Total Bilirubin 2.8 H (0.2-1.3) mg/dL Assessment and Plan (1) Afib Status: Acute (2) Bronchospasm with bronchitis, acute Status: Acute (3) Dyspnea Status: Acute (4) AICD (automatic cardioverter/defibrillator) present Status: Acute (5) Diabetes Status: Acute (6) Influenza B Status: Acute (7) Acute renal failure Status: Acute Plan: Follow renal studies closely. Check CBC and CMP in a.m. Gingerly hydrate. Diabetes. Influenza B Continue current medication regimen as cleared by nephrology. Dr. Obrien's group will be covering for the weekend. I do not anticipate discharge over the weekend. Time with Patient: Less than 30
[2016-08-22] MEDS: IPRATROPIUM-ALBUTEROL 3 ML NEB INHALATION SCH ×4 (08:34→20:54)
--- NOTE | 2016-08-22 09:33 | US ---
EXAMINATION TYPE: US kidneys/renal and bladder DATE OF EXAM: 08/22/2016 9:09 AM COMPARISON: Bilateral renal ultrasound June 19, 2016. CLINICAL HISTORY: pavel. EXAM MEASUREMENTS: Right Kidney: 8.7 x 4.4 x 4.8 cm Left Kidney: 9.1 x 4.8 x 5.0 cm TECHNOLOGIST IMPRESSION: Inpatient with SOB, unable to hold his breath, making exam technically diff icult Right pleural effusion noted, fluid in Lopez's pouch Right Kidney: atrophied, but measurement similar to left, multiple cysts largest measuring 4.2 x 4.3 x 4.2cm Left Kidney: multiple echogenic foci, large echogenic foci measuring 0.5 x 0.5 x 0.8cm, cyst noted Bladder: somewhat thickened irregular wall : There is no evidence for hydronephrosis at this point in time. No nephrolithiasis is seen. No ramon s are identified. The urinary bladder is anechoic. Bilateral ureteral jets are seen. Exam is noted suboptimal by technologist due to portable technique and patient inability to perform b reath-holding evaluation. Small right pleural effusion is seen towards beginning of study. Trace rye hepatic ascites inferiorly is noted. Cortical thinning in right kidney with several simple appearing cysts is identified, one may have some internal debris or echoes measuring 4.3 cm. Bladder is poorly distended and thus suboptimally evaluated. Bladder wall is mildly thickened up to 8 mm. Consider cystitis or outlet obstruction related to enlarged prostate gland. Clinical correlation advised. Smaller cysts are noted in left kidney. Cortical thinning in left kidney is noted. Nonspecific 5 mm h yperechoic focus upper pole level left kidney is marked by technologist, nonobstructing calculus is n ot excluded. The abdominal x-ray from one day earlier shows possible calculi at this level. IMPRESSION: No hydronephrosis is evident bilaterally. Suboptimal study with cortical thinning and simple appearin g cysts seen bilaterally is consistent with product of chronic medical renal disease. Attention to bl adder as noted above.
[2016-08-22] MEDS: predniSONE 20 MG TAB PO SCH (09:42)
[2016-08-22] MEDS: DONEPEZIL 5 MG TAB PO SCH (09:42)
[2016-08-22] MEDS: METOPROLOL SUCCINATE (ER) 50 MG TAB.ER.24H PO SCH (09:42)
[2016-08-22] MEDS: AMIODARONE 200 MG TAB PO SCH ×2 (09:43→20:19)
[2016-08-22] MEDS: CEFUROXIME 250 MG TAB PO SCH (09:43)
[2016-08-22] MEDS: APIXABAN 2.5 MG TABLET PO SCH ×2 (09:43→20:19)
[2016-08-22] MEDS: MULTIVITAMINS, THERA 1 EACH TAB PO SCH (09:43)
[2016-08-22] MEDS: DORZOLAMIDE-TIMOLOL 2-0.5% DROPS 10 ML BTL BOTH EYES SCH ×2 (09:43→20:45)
[2016-08-22] MEDS: INSULIN DETEMIR 100 UNIT/ML 10 ML VIAL SQ SCH (09:54)
[2016-08-22 10:48] LABS: Glucose,Whole Blood 69 mg/dL (75-99)
[2016-08-22 11:14] LABS: Glucose,Whole Blood 90 mg/dL (75-99)
[2016-08-22] MEDS: DEXTROSE 5%-0.9% NACL 1,000 ML IV SCH (11:17)
[2016-08-22] MEDS: OSELTAMIVIR 60 MG/10 ML ORAL SYRINGE PO SCH (11:20)
[2016-08-22] MEDS ORDERED: NA PHOS,M-B/NA PHOS,DI-BA 133 ML ENEMA RECTAL STA (11:41)
[2016-08-22 17:02] LABS: Glucose,Whole Blood 124 mg/dL (75-99)
[2016-08-22] MEDS: ATORVASTATIN 10 MG TAB PO SCH (20:19)
--- NOTE | 2016-08-22 20:19 | PN ---
Mr. Qureshi has severe degree of cardiomyopathy, chronic atrial fibrillation, with ejection fraction of 20%. Patient also has influenza and pneumonia. Clinically patient is overall not much changed; still remains weak, but blood pressure and hemodynamic status is slightly better. Blood pressure last check was 110/60, respiratory rate 16, pulse 53, temperature 98, saturation of 98% on 2 L oxygen. HEENT EXAMINATION: Otherwise unremarkable. NECK: Supple. LUNGS: Good air entry bilaterally. HEART: Regular rate, rhythm. ABDOMEN: Soft. NEUROLOGICAL EXAMINATION: Otherwise awake and alert. Labs reviewed. Medications reviewed as well. IMPRESSION: 1. Influenza pneumonia involving influenza B. 2. Secondary bacterial pneumonia. 3. Severe chronic obstructive pulmonary disease, emphysema. 4. Chronic atrial fibrillation. 5. Diabetes mellitus. 6. Hypertension, hypertensive cardiovascular disease. PLAN AND RECOMMENDATIONS: As above. Continue supportive care. Continue to monitor renal function. This patient is slowly developing acute on chronic renal failure, likely multifactorial process. Renal Service is following. Prognosis overall is very poor, though. Continue supportive care. Will follow.
[2016-08-22 20:53] LABS: Glucose,Whole Blood 127 mg/dL (75-99)
[2016-08-23] MEDS: DEXTROSE 5%-0.9% NACL 1,000 ML IV SCH ×2 (02:15→08:54)
[2016-08-23 02:18] LABS: Glucose,Whole Blood 215 mg/dL (75-99)
[2016-08-23] MEDS: INSULIN LISPRO (humaLOG) 300 UNIT/3 ML VIAL SQ SCH ×4 (06:16→21:46)
[2016-08-23 06:18] LABS: Glucose,Whole Blood 239 mg/dL (75-99)
[2016-08-23 07:07] LABS: Calcium 8.6 mg/dL (8.4-10.2); Potassium 5.2 mmol/L (3.5-5.1); Total Bilirubin 2.4 mg/dL (0.2-1.3); Total Protein 5.6 g/dL (6.3-8.2)
[2016-08-23] MEDS: DONEPEZIL 5 MG TAB PO SCH (08:31)
[2016-08-23] MEDS: CEFUROXIME 250 MG TAB PO SCH (08:31)
[2016-08-23] MEDS: AMIODARONE 200 MG TAB PO SCH ×2 (08:31→20:16)
[2016-08-23] MEDS: APIXABAN 2.5 MG TABLET PO SCH ×2 (08:31→20:15)
[2016-08-23] MEDS: METOPROLOL SUCCINATE (ER) 50 MG TAB.ER.24H PO SCH (08:32)
[2016-08-23] MEDS: MULTIVITAMINS, THERA 1 EACH TAB PO SCH (08:32)
[2016-08-23] MEDS: DORZOLAMIDE-TIMOLOL 2-0.5% DROPS 10 ML BTL BOTH EYES SCH ×2 (08:32→20:16)
[2016-08-23] MEDS: predniSONE 20 MG TAB PO SCH (08:33)
[2016-08-23] MEDS: INSULIN DETEMIR 100 UNIT/ML 10 ML VIAL SQ SCH (08:40)
[2016-08-23] MEDS: IPRATROPIUM-ALBUTEROL 3 ML NEB INHALATION SCH ×4 (08:55→20:46)
[2016-08-23] MEDS: OSELTAMIVIR 60 MG/10 ML ORAL SYRINGE PO SCH (08:57)
[2016-08-23] MEDS: traMADol 50 MG TAB PO PRN ×2 (08:59→20:17)
[2016-08-23 11:31] LABS: Glucose,Whole Blood 332 mg/dL (75-99)
--- NOTE | 2016-08-23 12:52 | XR ---
EXAMINATION TYPE: XR chest 1V DATE OF EXAM: 08/23/2016 12:41 PM CLINICAL HISTORY: Difficulty breathing and CHF progress study. History of influenza with cough per p atient. TECHNIQUE: Single AP portable frontal view of the chest is obtained. COMPARISON: Chest x-ray from 2 days earlier. FINDINGS: There is persisting cardiomegaly with single lead pacemaker/ICD. There is new small left p leural effusion. There is new patchy bibasilar opacity could reflect developing atelectasis and/or in filtrate. Small right pleural effusion is difficult to exclude. Upper lungs remain clear without pneu mothorax. Osseous structures are demineralized. IMPRESSION: Cardiomegaly is redemonstrated, new small bilateral pleural effusions are felt present, c onsider CHF exacerbation. Additional associated bibasilar atelectasis and/or infiltrate is noted.
[2016-08-23] MEDS: DOBUTamine DRIP 500 MG in DEXTROSE/WATER 1 250ML.BAG IV SCH (12:56)
--- NOTE | 2016-08-23 14:01 | P.PN ---
Subjective Principal diagnosis: Acute exacerbation of CHF Patient seen and examined. Patient states that his breathing is okay today. He says it is not worse than yesterday. He is complaining of generalized weakness. He states he has not yet urinated. Objective - Vital Signs Vital signs: Vital Signs Temp 97.3 F L 08/23/16 12:00 Pulse 84 08/23/16 12:00 Resp 16 08/23/16 12:00 BP 99/52 08/23/16 12:00 Pulse Ox 98 08/23/16 12:00 Intake & Output 08/22/16 08/23/16 08/23/16 18:59 06:59 18:59 Intake Total 360 870 100 Output Total 300 300 Balance 60 570 100 Weight 52.4 kg 55 kg Intake: IV 720 Dextrose 5%-0.9% NaCl 1, 720 000 ml @ 80 mls/hr IV . [id number] [facility] Rx#:[id number] Oral 360 150 100 Output: Urine 300 300 Other: Voiding Method Toilet # Voids 1 # Bowel Movements 1 - Exam Gen.: Patient is alert, generally weak, appears ill Cardiovascular: Regular rate and rhythm, S1/S2 Lungs: Bibasilar crackles Abdomen: Soft nontender nondistended positive bowel sounds Extremities: 1+ pitting edema - Labs CBC & Chem 7: 08/22/16 06:15 08/23/16 06:14 Labs: Abnormal Lab Results - Last 24 Hours (Table) 08/22/16 08/22/16 08/23/16 Range/Units 16:57 20:51 02:17 Sodium (137-145) mmol/L Potassium (3.5-5.1) mmol/L Carbon Dioxide (22-30) mmol/L BUN (9-20) mg/dL Creatinine (0.66-1.25) mg/dL Glucose (74-99) mg/dL POC Glucose (mg/dL) 124 H 127 H 215 H (75-99) mg/dL Total Bilirubin (0.2-1.3) mg/dL Alkaline Phosphatase (38-126) U/L Creatine Kinase (55-170) U/L Total Protein (6.3-8.2) g/dL Albumin (3.5-5.0) g/dL 08/23/16 08/23/16 08/23/16 Range/Units 06:12 06:14 06:15 Sodium 136 L (137-145) mmol/L Potassium 5.2 H (3.5-5.1) mmol/L Carbon Dioxide 17 L (22-30) mmol/L BUN 125 H* (9-20) mg/dL Creatinine 3.92 H (0.66-1.25) mg/dL Glucose 275 H (74-99) mg/dL POC Glucose (mg/dL) 239 H (75-99) mg/dL Total Bilirubin 2.4 H (0.2-1.3) mg/dL Alkaline Phosphatase 127 H (38-126) U/L Creatine Kinase 31 L (55-170) U/L Total Protein 5.6 L (6.3-8.2) g/dL Albumin 3.2 L (3.5-5.0) g/dL 08/23/16 Range/Units 11:28 Sodium (137-145) mmol/L Potassium (3.5-5.1) mmol/L Carbon Dioxide (22-30) mmol/L BUN (9-20) mg/dL Creatinine (0.66-1.25) mg/dL Glucose (74-99) mg/dL POC Glucose (mg/dL) 332 H (75-99) mg/dL Total Bilirubin (0.2-1.3) mg/dL Alkaline Phosphatase (38-126) U/L Creatine Kinase (55-170) U/L Total Protein (6.3-8.2) g/dL Albumin (3.5-5.0) g/dL Assessment and Plan Plan: Acute hypoxic respiratory failure Influenza B pneumonia Secondary bacterial pneumonia Severe chronic obstructive pulmonary disease, emphysema Chronic atrial fibrillation Diabetes mellitus Hypertension Acute kidney injury on chronic kidney disease stage III New small bilateral pleural effusions Acute exacerbation of CHF, systolic, ejection fraction less than 20% Status post AICD Dyslipidemia Nonischemic cardiomyopathy O2 to maintain saturation greater than equal to 88% Antibiotics: Ceftin Tamiflu Gentle hydration Bronchodilators Monitor for worsening respiratory status with hydration Nephrology recommendations, possible need for renal replacement therapy Cardiology recommendations Continue supportive care DC Prednisone due to elevated BUN GI and DVT prophylaxis: Eliquis, Protonix
[2016-08-23] MEDS ORDERED: ALPRAZolam 0.25 MG TAB PO PRN (16:02)
[2016-08-23 16:16] LABS: Glucose,Whole Blood 255 mg/dL (75-99)
[2016-08-23 16:47] LABS: Calcium 8.5 mg/dL (8.4-10.2); Total Bilirubin 2.1 mg/dL (0.2-1.3); Total Protein 5.7 g/dL (6.3-8.2)
[2016-08-23] MEDS: SODIUM CHLORIDE 0.9% 1,000 ML IV SCH (17:18)
[2016-08-23] MEDS ORDERED: FUROSEMIDE 10 MG/ML 4 ML VIAL IV STA (17:57)
[2016-08-23] MEDS: methylPREDNISolone SOD SUCCI 125 MG/2 ML VIAL IV SCH ×2 (18:52→23:46)
[2016-08-23] MEDS: SODIUM BICARBONATE TAB 650 MG TAB PO SCH (20:15)
[2016-08-23] MEDS: ATORVASTATIN 10 MG TAB PO SCH (20:17)
--- NOTE | 2016-08-23 20:43 | PN ---
DATE OF SERVICE: 08/23/2016 I am covering for Dr. Farah. This 81-year-old gentleman who was admitted with COPD, acute had influenza B positive, the patient has cough and unable to complete sentences. The patient is extremely short of breath. The patient is being closely monitored. Pulmonary is also following the patient closely. PAST MEDICAL HISTORY: Reviewed. REVIEW OF SYSTEMS: CARDIOVASCULAR: As mentioned earlier. RESPIRATORY: As mentioned earlier. GI: As mentioned earlier. : No dysuria. NERVOUS SYSTEM: No numbness or weakness. Current medications are reviewed and include: 1. DuoNeb q.i.d. and p.r.n. 2. Cordarone 200 mg p.o. b.i.d. 3. Eliquis 2.5 mg daily. 4. Lipitor 40 mg at bedtime. 5. Ceftin 500 mg p.o. daily. 6. Dobutamine drip. 7. Aricept 5 mg at bedtime. 8. Cosopt one drop t.i.d. 9. Robitussin D. 10. Dilaudid. 11. Levemir. 12. Toprol XL. 13. Multivitamin. 14. Tamiflu. 15. Protonix. PHYSICAL EXAM: GENERAL: Alert, oriented x3. VITAL SIGN: pulse 84, blood pressure 99/52, respirations 16, temperature 97.4, pulse ox 98% on 3 liters. HEENT: Conjunctivae normal. Oral mucosa moist. NECK: No jugular venous distention. No carotid bruit. No lymph node enlargement. CARDIOVASCULAR: S1 and S2 muffled. LUNGS: Breath sounds are diminished at the bases. Breathing is . Bilateral scattered rhonchi and expiratory wheezing also. ABDOMEN: Soft, scaphoid, nontender. No mass palpable. LEGS: No edema, no swelling. NERVOUS SYSTEM: Higher functions as mentioned. Moves all 4 limbs. Mild diffuse weakness. LYMPHATICS: No lymph nodes palpable in the neck, axillae, groin. SKIN: No rashes. LABS: WBC 14.1, creatinine 3.8, sodium 130, potassium 5.2. LFTs are noted. Alkaline phosphatase is 127. ASSESSMENT: 1. Chronic obstructive pulmonary disease, acute exacerbation as well as acute purulent tracheobronchitis. 2. Acute influenza B. 3. Acute on chronic kidney failure, possible prerenal. 4. Hyponatremia. 5. Hyperkalemia mild. 6. Hypoalbuminemia with mild to moderate protein calorie malnutrition. 7. Hyperbilirubinemia. 8. History of atrial fibrillation. 9. History of congestive heart failure. 10. History of diabetes mellitus type 2. 11. Hypertension. 12. History of skin cancer. 13. History of chronic disease. 14. History of cholecystectomy. 15. History of hernia repair. 16. History of automatic implantable cardioverter defibrillator. 17. FULL CODE. RECOMMENDATIONS: This 81-year-old gentleman presented with multiple complex medical issues. We will monitor the patient closely. Continue the current medications. Continue symptomatic treatment. Continue bronchodilators. Optimize the bronchodilator treatment. Continue with empiric antibiotics. Otherwise, I would also recommend continue with Tamiflu. Closely follow with pulmonary. Guarded prognosis. Further recommendations to follow. Chest x-ray done today was reviewed which showed minimal increase in vascularity. Otherwise, continue to monitor. MTDD
[2016-08-23] MEDS: BUDESONIDE 1 MG/2 ML NEBU INHALATION SCH (20:49)
[2016-08-23] MEDS: FORMOTEROL FUMARATE 20 MCG/2 ML NEBU INHALATION SCH (20:49)
[2016-08-23 21:13] LABS: Glucose,Whole Blood 198 mg/dL (75-99)
[2016-08-24] MEDS: SODIUM CHLORIDE 0.9% 1,000 ML IV SCH (06:32)
[2016-08-24] MEDS: methylPREDNISolone SOD SUCCI 125 MG/2 ML VIAL IV SCH ×3 (06:32→11:25)
[2016-08-24 06:35] LABS: Basophils % (A) 0 %; CH 29.4; CHCM 32.2; Eosinophils % (A) 0 %; HCT 48.3 % (39.0-53.0); HDW 2.52; HGB 15.1 gm/dL (13.0-17.5); Luc # (Auto) 0.07; Luc % (Auto) 1; Lymphocytes # (A) 0.3 k/uL (1.0-4.8); Lymphocytes % (A) 4 %; MCH 28.7 pg (25.0-35.0); MCHC 31.3 g/dL (31.0-37.0); MCV 91.8 fL (80.0-100.0); Mean Platelet Volume 8.7; Monocytes # (A) 0.3 k/uL (0-1.0); Monocytes % (A) 4 %; Neutrophils # (A) 7.4 k/uL (1.3-7.7); Neutrophils % (A) 91 %; RBC 5.27 m/uL (4.30-5.90); RDW 14.6 % (11.5-15.5); WBC 8.1 k/uL (3.8-10.6)
[2016-08-24] MEDS: INSULIN LISPRO (humaLOG) 300 UNIT/3 ML VIAL SQ SCH ×4 (06:35→21:56)
[2016-08-24] MEDS: PANTOPRAZOLE 40 MG TABLET PO SCH (06:36)
[2016-08-24 06:43] LABS: Calcium 8.3 mg/dL (8.4-10.2); Potassium 4.7 mmol/L (3.5-5.1)
[2016-08-24 06:46] LABS: Glucose,Whole Blood 154 mg/dL (75-99)
[2016-08-24 06:56] LABS: Manual Review Performed
[2016-08-24] MEDS: FORMOTEROL FUMARATE 20 MCG/2 ML NEBU INHALATION SCH ×2 (09:00→21:15)
[2016-08-24] MEDS: BUDESONIDE 1 MG/2 ML NEBU INHALATION SCH ×2 (09:00→21:15)
[2016-08-24] MEDS: IPRATROPIUM-ALBUTEROL 3 ML NEB INHALATION SCH ×4 (09:00→21:14)
[2016-08-24] MEDS: DONEPEZIL 5 MG TAB PO SCH (09:12)
[2016-08-24] MEDS: AMIODARONE 200 MG TAB PO SCH ×2 (09:12→20:14)
[2016-08-24] MEDS: INSULIN DETEMIR 100 UNIT/ML 10 ML VIAL SQ SCH (09:13)
[2016-08-24] MEDS: APIXABAN 2.5 MG TABLET PO SCH ×2 (09:13→20:14)
[2016-08-24] MEDS: SODIUM BICARBONATE TAB 650 MG TAB PO SCH ×2 (09:13→20:14)
[2016-08-24] MEDS: MULTIVITAMINS, THERA 1 EACH TAB PO SCH (09:13)
[2016-08-24] MEDS: DORZOLAMIDE-TIMOLOL 2-0.5% DROPS 10 ML BTL BOTH EYES SCH ×2 (09:13→20:15)
[2016-08-24] MEDS: METOPROLOL SUCCINATE (ER) 50 MG TAB.ER.24H PO SCH (09:13)
[2016-08-24] MEDS: OSELTAMIVIR 60 MG/10 ML ORAL SYRINGE PO SCH (09:14)
--- NOTE | 2016-08-24 10:31 | P.PN ---
Subjective Principal diagnosis: AECHF Patient seen and examined. Patient is complaining of generalized weakness. He states his breathing is no worse than yesterday. He has no other needs or complaints at this time. The patient was given 1 dose of Lasix overnight and states he did have urine output. Objective - Vital Signs Vital signs: Vital Signs Temp 96.8 F L 08/24/16 08:00 Pulse 110 H 08/24/16 08:00 Resp 16 08/24/16 08:00 BP 110/72 08/24/16 08:00 Pulse Ox 98 08/24/16 08:00 Intake & Output 08/23/16 08/24/16 08/24/16 18:59 06:59 18:59 Intake Total 100 1098 Output Total 250 Balance 100 848 Weight 56.6 kg Intake: Intake, IV Titration 348 Amount DOBUTamine DRIP 500 mg In 18 Dextrose/Water 1 250ml. bag @ 2.5 MCG/KG/MIN 4.12 mls/hr IV .Q24H [facility] Rx#: [id number] Sodium Chloride 0.9% 1, 330 000 ml @ 75 mls/hr IV . [id number] [facility] Rx#:[id number] Oral 100 750 Output: Urine 250 Other: Voiding Method Urinal Bedside Commode # Voids 1 0 - Exam Gen.: Patient is alert, generally weak, appears ill Cardiovascular: Regular rate and rhythm, S1/S2 Lungs: Bibasilar crackles Abdomen: Soft nontender nondistended positive bowel sounds Extremities: 1+ pitting edema - Labs CBC & Chem 7: 08/24/16 06:15 08/24/16 06:15 Labs: Abnormal Lab Results - Last 24 Hours (Table) 08/23/16 08/23/16 08/23/16 Range/Units 06:15 11:28 16:13 Plt Count (150-450) k/uL Lymphocytes # (1.0-4.8) k/uL Sodium (137-145) mmol/L Carbon Dioxide (22-30) mmol/L BUN (9-20) mg/dL Creatinine (0.66-1.25) mg/dL Glucose (74-99) mg/dL POC Glucose (mg/dL) 332 H 255 H (75-99) mg/dL Calcium (8.4-10.2) mg/dL Total Bilirubin (0.2-1.3) mg/dL Creatine Kinase 31 L (55-170) U/L Total Protein (6.3-8.2) g/dL Albumin (3.5-5.0) g/dL 08/23/16 08/23/16 08/24/16 Range/Units 16:20 21:06 06:15 Plt Count 93 L (150-450) k/uL Lymphocytes # 0.3 L (1.0-4.8) k/uL Sodium 136 L (137-145) mmol/L Carbon Dioxide 21 L (22-30) mmol/L BUN 128 H* (9-20) mg/dL Creatinine 3.90 H (0.66-1.25) mg/dL Glucose 239 H (74-99) mg/dL POC Glucose (mg/dL) 198 H (75-99) mg/dL Calcium (8.4-10.2) mg/dL Total Bilirubin 2.1 H (0.2-1.3) mg/dL Creatine Kinase (55-170) U/L Total Protein 5.7 L (6.3-8.2) g/dL Albumin 3.2 L (3.5-5.0) g/dL 08/24/16 08/24/16 Range/Units 06:15 06:34 Plt Count (150-450) k/uL Lymphocytes # (1.0-4.8) k/uL Sodium (137-145) mmol/L Carbon Dioxide 21 L (22-30) mmol/L BUN 125 H* (9-20) mg/dL Creatinine 3.81 H (0.66-1.25) mg/dL Glucose 169 H (74-99) mg/dL POC Glucose (mg/dL) 154 H (75-99) mg/dL Calcium 8.3 L (8.4-10.2) mg/dL Total Bilirubin (0.2-1.3) mg/dL Creatine Kinase (55-170) U/L Total Protein (6.3-8.2) g/dL Albumin (3.5-5.0) g/dL Assessment and Plan Plan: Acute hypoxic respiratory failure Acute exacerbation of CHF, small bilateral pleural effusions Influenza B pneumonia Secondary bacterial pneumonia Severe chronic obstructive pulmonary disease, emphysema Chronic atrial fibrillation Diabetes mellitus Hypertension Acute kidney injury on chronic kidney disease stage III New small bilateral pleural effusions Acute exacerbation of CHF, systolic, ejection fraction less than 20% Status post AICD Dyslipidemia Nonischemic cardiomyopathy O2 to maintain saturation greater than equal to 88% Antibiotics: Ceftin Tamiflu Gentle hydration Dobutamine drip per cardio Bronchodilators Monitor for worsening respiratory status with hydration Nephrology recommendations, possible need for renal replacement therapy Cardiology recommendations Continue supportive care DC Prednisone due to elevated BUN GI and DVT prophylaxis: Eliquis, Protonix Overall prognosis remains poor
--- NOTE | 2016-08-24 10:35 | P.PN ---
Subjective Principal diagnosis: This is an 81-year-old male with severe chronic kidney disease and acute kidney injury. He has cardiorenal syndrome. Yesterday I put him on dobutamine drip and he has not responded. His urine output oliguric range. It was 400 mL, 600 mL and 250 mL for the last 3 days. He is on IV fluids. This morning is feeling much worse fatigued tired poor appetite. Is minimally short of breath at rest. No nausea vomiting. He is declining any renal replacement therapy options this morning. This was discussed with him as the last resort as he is on dobutamine and IV fluids. His blood pressure is stable in the 110 232 systolic range. This morning and it orthostatic changes. Blood pressure 95/40 with a heart rate of 53 supine and sitting on the edge of the bed with feet dangling blood pressure remained stable 95/55 with a heart rate of 56. 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 It has been gradually worsening over the last few days and is up to 3.67 today with a BUN of 117. Patient has history of systolic CHF with an ejection fraction of less than 20%. He presented with dyspnea and is currently being treated for influenza pneumonia. He was receiving IV diuretics upon admission which was transitioned over to oral diuretics. Lasix was discontinued day before yesterday dated 08/22 . Objective - Vital Signs Vital signs: Vital Signs Temp 96.8 F L 08/24/16 08:00 Pulse 110 H 08/24/16 08:00 Resp 16 08/24/16 08:00 BP 110/72 08/24/16 08:00 Pulse Ox 98 08/24/16 08:00 Intake & Output 08/23/16 08/24/16 08/24/16 18:59 06:59 18:59 Intake Total 100 1098 Output Total 250 Balance 100 848 Weight 56.6 kg Intake: Intake, IV Titration 348 Amount DOBUTamine DRIP 500 mg In 18 Dextrose/Water 1 250ml. bag @ 2.5 MCG/KG/MIN 4.12 mls/hr IV .Q24H [facility] Rx#: [id number] Sodium Chloride 0.9% 1, 330 000 ml @ 75 mls/hr IV . [id number] [facility] Rx#:[id number] Oral 100 750 Output: Urine 250 Other: Voiding Method Urinal Bedside Commode # Voids 1 0 On examination is tired fatigue but awake and alert. HEENT exam no JVP is noted neck is supple no facial asymmetry Lungs are clear to auscultation with an occasional coarse crackle that clears with cough good air entry bilaterally no dullness percussion. Heart sounds are unremarkable for any murmur rub gallop. Abdomen is soft nontender no organomegaly ascites masses Extremity exam reveals trace edema. Neurologically awake alert oriented warm to touch. No focal motor deficit no asterixis - Labs CBC & Chem 7: 08/24/16 06:15 08/24/16 06:15 Labs: Abnormal Lab Results - Last 24 Hours (Table) 08/23/16 08/23/16 08/23/16 Range/Units 06:15 11:28 16:13 Plt Count (150-450) k/uL Lymphocytes # (1.0-4.8) k/uL Sodium (137-145) mmol/L Carbon Dioxide (22-30) mmol/L BUN (9-20) mg/dL Creatinine (0.66-1.25) mg/dL Glucose (74-99) mg/dL POC Glucose (mg/dL) 332 H 255 H (75-99) mg/dL Calcium (8.4-10.2) mg/dL Total Bilirubin (0.2-1.3) mg/dL Creatine Kinase 31 L (55-170) U/L Total Protein (6.3-8.2) g/dL Albumin (3.5-5.0) g/dL 08/23/16 08/23/16 08/24/16 Range/Units 16:20 21:06 06:15 Plt Count 93 L (150-450) k/uL Lymphocytes # 0.3 L (1.0-4.8) k/uL Sodium 136 L (137-145) mmol/L Carbon Dioxide 21 L (22-30) mmol/L BUN 128 H* (9-20) mg/dL Creatinine 3.90 H (0.66-1.25) mg/dL Glucose 239 H (74-99) mg/dL POC Glucose (mg/dL) 198 H (75-99) mg/dL Calcium (8.4-10.2) mg/dL Total Bilirubin 2.1 H (0.2-1.3) mg/dL Creatine Kinase (55-170) U/L Total Protein 5.7 L (6.3-8.2) g/dL Albumin 3.2 L (3.5-5.0) g/dL 08/24/16 08/24/16 Range/Units 06:15 06:34 Plt Count (150-450) k/uL Lymphocytes # (1.0-4.8) k/uL Sodium (137-145) mmol/L Carbon Dioxide 21 L (22-30) mmol/L BUN 125 H* (9-20) mg/dL Creatinine 3.81 H (0.66-1.25) mg/dL Glucose 169 H (74-99) mg/dL POC Glucose (mg/dL) 154 H (75-99) mg/dL Calcium 8.3 L (8.4-10.2) mg/dL Total Bilirubin (0.2-1.3) mg/dL Creatine Kinase (55-170) U/L Total Protein (6.3-8.2) g/dL Albumin (3.5-5.0) g/dL Assessment and Plan Plan: Impression 1. Cardiorenal syndrome with worsening acute kidney injury, on response to dobutamine for the last approximately 20 hours. Patient is euvolemic currently although the chest x-ray showing some mild worsening with bilateral small effusions. Creatinine went up on admission from 1.6 dated 08/16/2016 to 3.9 yesterday and is 3.81 today. This record changer the last 2 days is not indicated of any improvement as there is hardly any urine output. No orthostatic changes were noted this morning on 08/24/2016 2. Chronic kidney disease with a baseline creatinine of about 1.6 at its best over the last 2 years. Etiology is nephrosclerosis. Trace proteinuria on 08/18 urine analysis with benign sediment 3. Mild acidosis with a gap of 14 and a bicarb of 21, etiology is chronic kidney disease and acute kidney injury. 4. Cardiorenal syndrome. Ejection from 20% Recommendation. Discussed with dialysis options with the patient. He is aware of the consequences of not dialyzing and is comfortable with that decision. We will maintain his dobutamine for another 48-72 hours and see if he'll respond. Because of slight worsening in chest x-ray and cough and shortness of breath a little reduce his IV fluids to KVO.
[2016-08-24 12:34] LABS: Glucose,Whole Blood 147 mg/dL (75-99)
[2016-08-24] MEDS: DOBUTamine DRIP 500 MG in DEXTROSE/WATER 1 250ML.BAG IV SCH (14:01)
[2016-08-24 17:36] LABS: Glucose,Whole Blood 151 mg/dL (75-99)
[2016-08-24] MEDS: methylPREDNISolone SOD SUCCI 40 MG/ML 1 ML VIAL IV SCH ×2 (18:33→23:34)
[2016-08-24] MEDS: ATORVASTATIN 10 MG TAB PO SCH (20:14)
[2016-08-24 21:29] LABS: Glucose,Whole Blood 164 mg/dL (75-99)
[2016-08-25 05:49] LABS: Glucose,Whole Blood 195 mg/dL (75-99)
[2016-08-25 06:47] LABS: Basophils % (A) 0 %; CH 29.3; CHCM 32.2; Eosinophils % (A) 0 %; HCT 49.9 % (39.0-53.0); HDW 2.55; HGB 15.8 gm/dL (13.0-17.5); Luc # (Auto) 0.07; Luc % (Auto) 1; Lymphocytes # (A) 0.4 k/uL (1.0-4.8); Lymphocytes % (A) 4 %; MCHC 31.7 g/dL (31.0-37.0); MCV 91.7 fL (80.0-100.0); Mean Platelet Volume 8.8; Monocytes # (A) 0.6 k/uL (0-1.0); Monocytes % (A) 5 %; Neutrophils # (A) 9.7 k/uL (1.3-7.7); Neutrophils % (A) 90 %; RBC 5.44 m/uL (4.30-5.90); RDW 14.7 % (11.5-15.5); WBC 10.8 k/uL (3.8-10.6); WBC (Perox) 10.83
[2016-08-25] MEDS: methylPREDNISolone SOD SUCCI 40 MG/ML 1 ML VIAL IV SCH ×3 (06:49→16:56)
[2016-08-25] MEDS: PANTOPRAZOLE 40 MG TABLET PO SCH (06:50)
[2016-08-25] MEDS: INSULIN LISPRO (humaLOG) 300 UNIT/3 ML VIAL SQ SCH ×4 (06:50→21:33)
[2016-08-25 06:57] LABS: Calcium 8.6 mg/dL (8.4-10.2)
--- NOTE | 2016-08-25 07:43 | P.PN ---
Subjective Principal diagnosis: Acute renal failure Is a continue present on an 81-year-old white male essentially admitted for acute exacerbation of COPD but has multiple issues including influenza B with cardiorenal syndrome. He has ejection fraction which is about 20%. Multiple consultants including nephrology and pulmonology on the case. He's been on antibiotics for about 8-9 days but has had minimal improvement. I had a long discussion with the patient today regarding possible hospice. He is refusing this type of treatment at this time. However, he is discussed with nephrology that he does not wish to have dialysis at this time. Objective - Vital Signs Vital signs: Vital Signs Temp 96 F L 08/25/16 04:00 Pulse 76 08/25/16 04:00 Resp 18 08/25/16 04:00 BP 97/61 08/25/16 04:00 Pulse Ox 96 08/25/16 04:00 Intake & Output 08/24/16 08/25/16 08/25/16 18:59 06:59 18:59 Output Total 150 Balance -150 Output: Urine 150 Other: Voiding Method Bedside Commode Urinal # Voids 0 0 - Constitutional General appearance: Present: thin - EENT Eyes: Absent: abnormal pupil - Respiratory Respiratory: bilateral: diminished - Cardiovascular Heart sounds: normal: S1, S2 - Gastrointestinal General gastrointestinal: Present: soft - Integumentary Integumentary: Absent: rash - Neurologic Neurologic: Present: CNII-XII intact - Musculoskeletal Musculoskeletal: Present: generalized weakness - Labs CBC & Chem 7: 08/25/16 06:09 08/25/16 06:09 Labs: Abnormal Lab Results - Last 24 Hours (Table) 08/24/16 08/24/16 08/24/16 Range/Units 12:24 17:31 21:05 WBC (3.8-10.6) k/uL Plt Count (150-450) k/uL Neutrophils # (1.3-7.7) k/uL Lymphocytes # (1.0-4.8) k/uL Sodium (137-145) mmol/L Carbon Dioxide (22-30) mmol/L BUN (9-20) mg/dL Creatinine (0.66-1.25) mg/dL Glucose (74-99) mg/dL POC Glucose (mg/dL) 147 H 151 H 164 H (75-99) mg/dL 08/25/16 08/25/16 08/25/16 Range/Units 05:46 06:09 06:09 WBC 10.8 H (3.8-10.6) k/uL Plt Count 107 L (150-450) k/uL Neutrophils # 9.7 H (1.3-7.7) k/uL Lymphocytes # 0.4 L (1.0-4.8) k/uL Sodium 135 L (137-145) mmol/L Carbon Dioxide 19 L (22-30) mmol/L BUN 123 H* (9-20) mg/dL Creatinine 3.40 H (0.66-1.25) mg/dL Glucose 172 H (74-99) mg/dL POC Glucose (mg/dL) 195 H (75-99) mg/dL Microbiology - Last 24 Hours (Table) 08/24/16 23:20 Sputum Culture - Preliminary Sputum Assessment and Plan (1) Afib Status: Acute (2) Bronchospasm with bronchitis, acute Status: Acute (3) Dyspnea Status: Acute (4) AICD (automatic cardioverter/defibrillator) present Status: Acute (5) Diabetes Status: Acute (6) Influenza B Status: Acute (7) Acute renal failure Status: Acute Plan: We'll check CMP in a.m. Prognosis is guarded secondary to his multiple comorbidities. I will consult discharge planning for probable ECF placement. See orders otherwise Time with Patient: Less than 30
[2016-08-25] MEDS: AMIODARONE 200 MG TAB PO SCH ×2 (08:39→20:42)
[2016-08-25] MEDS: APIXABAN 2.5 MG TABLET PO SCH ×2 (08:39→20:42)
[2016-08-25] MEDS: DONEPEZIL 5 MG TAB PO SCH (08:39)
[2016-08-25] MEDS: MULTIVITAMINS, THERA 1 EACH TAB PO SCH (08:40)
[2016-08-25] MEDS: METOPROLOL SUCCINATE (ER) 50 MG TAB.ER.24H PO SCH (08:40)
[2016-08-25] MEDS: DORZOLAMIDE-TIMOLOL 2-0.5% DROPS 10 ML BTL BOTH EYES SCH ×2 (08:40→20:43)
[2016-08-25] MEDS: INSULIN DETEMIR 100 UNIT/ML 10 ML VIAL SQ SCH (08:40)
[2016-08-25] MEDS: SODIUM BICARBONATE TAB 650 MG TAB PO SCH ×2 (08:40→20:42)
[2016-08-25] MEDS: FORMOTEROL FUMARATE 20 MCG/2 ML NEBU INHALATION SCH ×2 (09:02→19:18)
[2016-08-25] MEDS: IPRATROPIUM-ALBUTEROL 3 ML NEB INHALATION SCH ×4 (09:02→19:18)
[2016-08-25] MEDS: BUDESONIDE 1 MG/2 ML NEBU INHALATION SCH ×2 (09:02→19:18)
--- NOTE | 2016-08-25 09:55 | PN ---
DATE OF SERVICE: 08/24/2016 I am covering for Dr. Farah. This 81-year-old gentleman who was admitted with COPD was also influenza B positive. The patient had increased shortness of breath yesterday. The patient also had evidence of fluid overload. Lasix 40 mg one dose was given. Creatinine is elevated up to 3.81 and BUN is 125. The patient is being closely monitored at this time. PAST MEDICAL HISTORY: Reviewed. REVIEW OF SYSTEMS: CARDIOVASCULAR: No angina. RESPIRATORY: As mentioned earlier. GASTROINTESTINAL: As mentioned earlier. : As mentioned. NERVOUS SYSTEM: As mentioned. Current medications are reviewed and include: 1. DuoNeb q.i.d. and p.r.n. 2. Xanax 0.25 t.i.d. 3. Cordarone 200 mg p.o. b.i.d. 4. Eliquis 2.5 mg b.i.d. 5. Lipitor 10 mg at bedtime. 6. Pulmicort 1 mg b.i.d. 7. Rocephin every 24 hours. 8. Aricept 5 mg p.o. daily. 9. Cosopt one drop b.i.d. 10. Perforomist 20 mcg b.i.d. 11. Robitussin D 10 mEq p.r.n. 12. Dilaudid 0.5 mg every 4 p.r.n. 14. Solumedrol 60 IV every 6 hours. 15. Toprol XL 50 mg p.o. daily. 16. Multivitamin 1 p.o. daily. 17. Zofran 4 mg IV every 6. 18. Protonix 40 mg daily. 19. Sodium bicarb 650. 20. Ultram 50 mg p.o. b.i.d. PHYSICAL EXAM: The patient is alert, oriented x3. VITAL SIGNS: Pulse 55, blood pressure 120/70, pulse 97, respirations 14, temperature 97.9, pulse ox 98% on 2 L. HEENT: Oral mucosa moist. NECK: No jugular venous distention, no carotid bruits. CARDIOVASCULAR: S1 and S2. LUNGS: Breath sounds diminished at the bases. Bilateral scattered rhonchi and crackles. ABDOMEN: Soft, nontender. EXTREMITIES: No edema. NERVOUS SYSTEM: Higher functions intact. Moves all limbs equally. LYMPHATICS: No lymph nodes palpable in axillae or groin. SKIN: No ulcers or rash. LABS: WBC 8.1, hemoglobin 15.1, platelets are 93, sodium 137, potassium 4.7, creatinine 3.81. ASSESSMENT: 1. Chronic obstructive pulmonary disease, acute exacerbation as well as acute purulent tracheobronchitis. 2. Acute influenza B. 3. Acute on chronic kidney failure, possibly prerenal. 4. Hyponatremia. 5. Hyperkalemia mild. 6. Hyperbilirubinemia. 7. History of atrial fibrillation. 8. History of congestive heart failure. 9. History of diabetes mellitus type 2. 10. Hypertension. 11. History of skin cancer. 12. Chronic kidney disease. 13. Hyperbilirubinemia. 14. History of chronic kidney disease. 15. History of cholecystectomy. 16. History of hernia repair. 17. History of automatic implantable cardioverter defibrillator. 18. FULL CODE. RECOMMENDATIONS AND DISCUSSION: Continue current medications and symptomatic treatment. Otherwise the patient is to continue with ( ) closely. Dobutamine has been initiated. Would recommend continue with the bronchodilators and empiric antibiotics. Steroids have also been given 60 IV ever 6. I would recommend to rapidly taper off steroids also because of concerns of infection and renal failure. The overall prognosis is guarded because of multiple complex medical issues. Dr. Farah will follow. The patient is being closely followed by Dr. Alexandria Dr. . See orders for further details. KIRSTIND
[2016-08-25 10:49] LABS: Amorphous Sediment,Urine Rare /hpf; Appearance,Urine Clear (Clear); Bacteria,Urine Rare /hpf; Bilirubin,Urine Negative (Negative); Glucose,Urine (UA) Negative (Negative); Ketones,Urine Negative (Negative); Leukocyte Esterase,Urine Negative (Negative); Nitrite,Urine Negative (Negative); PH, Urine 5.5 (5.0-8.0); Particle Count 3550; Protein,Urine 1+ (Negative); RBC,Urine 5 /hpf (0-5); Specific Gravity,Urine 1.013 (1.001-1.035); Squamous Epithelial Cell,Urine <1 /hpf (0-4); UA Billing (MACRO vs. MICRO) MICRO; Urobilinogen,Urine <2.0 mg/dL (<2.0)
[2016-08-25 11:58] LABS: Glucose,Whole Blood 136 mg/dL (75-99)
--- NOTE | 2016-08-25 12:25 | P.PN ---
Subjective Principal diagnosis: Acute exacerbation of CHF Patient seen and examined. Patient is on the bedside commode. He states his breathing is better today. He states he is feeling better overall today. He has declined hospice evaluation as well as hemodialysis. The patient is having some urine output now. Objective - Vital Signs Vital signs: Vital Signs Temp 97 F L 08/25/16 08:00 Pulse 58 L 08/25/16 11:24 Resp 18 08/25/16 11:24 BP 105/66 08/25/16 11:24 Pulse Ox 95 08/25/16 11:24 Intake & Output 08/24/16 08/25/16 08/25/16 18:59 06:59 18:59 Intake Total 0 Output Total 150 Balance -150 0 Intake: Oral 0 Output: Urine 150 Other: Voiding Method Bedside Commode Indwelling Catheter Urinal # Voids 0 0 # Bowel Movements 1 - Exam Gen.: Patient is alert, generally weak, appears ill Cardiovascular: Regular rate and rhythm, S1/S2 Lungs: Bibasilar crackles Abdomen: Soft nontender nondistended positive bowel sounds Extremities: 1+ pitting edema - Labs CBC & Chem 7: 08/25/16 06:09 08/25/16 06:09 Labs: Abnormal Lab Results - Last 24 Hours (Table) 08/24/16 08/24/16 08/24/16 Range/Units 12:24 17:31 21:05 WBC (3.8-10.6) k/uL Plt Count (150-450) k/uL Neutrophils # (1.3-7.7) k/uL Lymphocytes # (1.0-4.8) k/uL Sodium (137-145) mmol/L Carbon Dioxide (22-30) mmol/L BUN (9-20) mg/dL Creatinine (0.66-1.25) mg/dL Glucose (74-99) mg/dL POC Glucose (mg/dL) 147 H 151 H 164 H (75-99) mg/dL Urine Protein (Negative) Amorphous Sediment (None) /hpf Urine Bacteria (None) /hpf 08/25/16 08/25/16 08/25/16 Range/Units 05:46 06:09 06:09 WBC 10.8 H (3.8-10.6) k/uL Plt Count 107 L (150-450) k/uL Neutrophils # 9.7 H (1.3-7.7) k/uL Lymphocytes # 0.4 L (1.0-4.8) k/uL Sodium 135 L (137-145) mmol/L Carbon Dioxide 19 L (22-30) mmol/L BUN 123 H* (9-20) mg/dL Creatinine 3.40 H (0.66-1.25) mg/dL Glucose 172 H (74-99) mg/dL POC Glucose (mg/dL) 195 H (75-99) mg/dL Urine Protein (Negative) Amorphous Sediment (None) /hpf Urine Bacteria (None) /hpf 08/25/16 08/25/16 Range/Units 09:00 11:53 WBC (3.8-10.6) k/uL Plt Count (150-450) k/uL Neutrophils # (1.3-7.7) k/uL Lymphocytes # (1.0-4.8) k/uL Sodium (137-145) mmol/L Carbon Dioxide (22-30) mmol/L BUN (9-20) mg/dL Creatinine (0.66-1.25) mg/dL Glucose (74-99) mg/dL POC Glucose (mg/dL) 136 H (75-99) mg/dL Urine Protein 1+ H (Negative) Amorphous Sediment Rare H (None) /hpf Urine Bacteria Rare H (None) /hpf Microbiology - Last 24 Hours (Table) 08/24/16 23:20 Sputum Culture - Preliminary Sputum Assessment and Plan Plan: Acute hypoxic respiratory failure Acute exacerbation of CHF, small bilateral pleural effusions Influenza B pneumonia Secondary bacterial pneumonia Severe chronic obstructive pulmonary disease, emphysema Chronic atrial fibrillation Diabetes mellitus Hypertension Acute kidney injury on chronic kidney disease stage III New small bilateral pleural effusions Acute exacerbation of CHF, systolic, ejection fraction less than 20% Status post AICD Dyslipidemia Nonischemic cardiomyopathy O2 to maintain saturation greater than equal to 88% Antibiotics: Ceftin Tamiflu - coarse complete Gentle hydration Dobutamine drip per cardio Bronchodilators Monitor for worsening respiratory status with hydration Nephrology recommendations, possible need for renal replacement therapy, patient is declining at this time Cardiology recommendations Continue supportive care DC Prednisone due to elevated BUN GI and DVT prophylaxis: Eliquis, Protonix Overall prognosis remains poor, however patient is declining hospice evaluation
--- NOTE | 2016-08-25 12:58 | CONS ---
DATE OF CONSULTATION: 08/25/2016. REASON FOR CONSULTATION: Inability to insert urethral catheter. The patient is an 81-year-old male admitted through the emergency room on 08/15 for evaluation of increasing shortness of breath related to bronchitis and worsening congestive heart failure. Patient's creatinine at the time of admission was 1.6. He is currently being treated with antibiotics for influenza pneumonia. His creatinine has gradually increased and was 1.6 on admission, rising to 3.67 yesterday. The patient has been started on a dobutamine drip, but his urine output has improved only marginally. Patient has declined to consider dialysis if his creatinine worsens. Attempts were made this morning to insert a catheter but this proved to be impossible due to edema of the foreskin. I was asked to see the patient for further evaluation. The patient said that he normally voids every 1 to 3 hours during the day. He underwent a TURP in [address] Weiss and at that time had urinary retention and bilateral hydronephrosis. The hydronephrosis resolved. The patient was discovered to have a small focus of prostate cancer but in view of the low-grade disease and his age, only observation was recommended. Patient was last seen by Dr. Weiss in 06/20 due to a possible small mass noted in the left kidney. Due to the patient's age and multiple morbidities, further observation was recommended. PAST MEDICAL HISTORY:Significant in regard to chronic atrial fibrillation with cardiomyopathy and congestive heart failure. Patient's ejection fraction is less than 20%. There is a history of hypertension and diabetes mellitus. 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 Current medications include: 1. DuoNeb. 2. Cordarone. 3. Eliquis. 4. Lipitor. 5. Pulmicort. 6. Ceftriaxone. 7. Dobutamine. 8. Aricept. 9. Perforomist. 10. Levemir. 11. Solu-Medrol. 12. Toprol. 13. Zofran. 14. Sodium bicarbonate. 15. Ultram. Review of systems is significant mainly in regard to the above. The patient has become progressively more short of breath since his admission. Physical exam reveals an elderly male who is alert and oriented. Afebrile. Blood pressure 105/61. HEENT: No supraclavicular or cervical adenopathy. ABDOMEN: Soft. No hepatosplenomegaly. No suprapubic tenderness. GENITALIA: There is moderate penile and scrotal edema. Penis uncircumcised. Both testicles are descended. Immediately following my examination, the edema of the foreskin was relieved with gentle pressure. Penis was then prepped with Betadine solution, and initially I attempted to pass a 16 Russian Clarke catheter. This appeared to meet with obstruction in the region of the bladder neck. A 14 Russian Coude catheter was eventually passed through the bladder, but this also passed with difficulty due to obstruction near the bladder neck, possibly secondary to vesical neck contracture. Clear urine drained from the bladder. IMPRESSION: 1. Difficulty in inserting catheter secondary to genital edema, which is related to the patient's progressive congestive heart failure. 2. The patient did not appear to be in urinary retention. RECOMMENDATIONS: Patient's catheter can be removed once close monitoring of his urine output is no longer necessary. If the patient is not symptomatic from his bladder from an apparent vesical neck contracture, then in view of his other comorbidities, I do not feel that further evaluation of this is necessary. Thank you for allowing me to participate in the care of this gentleman. CHIKI
[2016-08-25] MEDS: DOBUTamine DRIP 500 MG in DEXTROSE/WATER 1 250ML.BAG IV SCH (14:55)
--- NOTE | 2016-08-25 17:01 | PN ---
The patient is seen for follow-up for acute kidney injury. He is being treated for cardiorenal syndrome. Ejection fraction less than 20%. Patient is maintained on dobutamine and he states he is breathing better. Currently I do not see Lasix on his current meds. Patient has been talked to regarding hemodialysis and hospice. He has declined any renal replacement therapy. On examination, blood pressure is 115/66, heart rate at 55 per minute. He is afebrile. Examination of the heart S1 and S2. Examination of the lungs: Bilateral breath sounds are heard. Decreased breath sounds in bases. ABDOMEN: Soft, nontender. Examination of lower extremities shows edema 1+ bilaterally. Labs show sodium 135, potassium 5.0, BUN 123, serum creatinine at 3.4 mg/dL, hemoglobin 15.8. ASSESSMENT: 1. Acute kidney injury secondary to cardiorenal syndrome, currently maintained on dobutamine. May continue with the dobutamine for now. Patient states his respiratory status has improved. Will continue to monitor his urine output. He has had a Clarke catheter placed and therefore it will be more accurately measured. Repeat chest x-ray in a.m. 2. Influenza type B. 3. Cardiomyopathy with ejection fraction of less than 20%. PLAN: Repeat labs in a.m. and continue to hold Lasix for now. Check chest x-ray in a.m.
[2016-08-25 17:15] LABS: Glucose,Whole Blood 108 mg/dL (75-99)
[2016-08-25] MEDS: ATORVASTATIN 10 MG TAB PO SCH (20:42)
[2016-08-25 21:27] LABS: Glucose,Whole Blood 96 mg/dL (75-99)
[2016-08-26] MEDS: methylPREDNISolone SOD SUCCI 40 MG/ML 1 ML VIAL IV SCH ×5 (00:20→23:39)
[2016-08-26 06:28] LABS: Glucose,Whole Blood 124 mg/dL (75-99)
[2016-08-26 06:39] LABS: Basophils % (A) 0 %; CH 29.3; CHCM 31.9; Eosinophils % (A) 0 %; HCT 50.5 % (39.0-53.0); HDW 2.52; HGB 15.9 gm/dL (13.0-17.5); Luc # (Auto) 0.07; Luc % (Auto) 1; Lymphocytes # (A) 0.5 k/uL (1.0-4.8); Lymphocytes % (A) 4 %; MCHC 31.4 g/dL (31.0-37.0); MCV 92.3 fL (80.0-100.0); Monocytes # (A) 0.6 k/uL (0-1.0); Monocytes % (A) 5 %; Neutrophils # (A) 11.4 k/uL (1.3-7.7); Neutrophils % (A) 91 %; RBC 5.47 m/uL (4.30-5.90); RDW 14.8 % (11.5-15.5); WBC 12.6 k/uL (3.8-10.6); WBC (Perox) 12.92
[2016-08-26] MEDS: INSULIN LISPRO (humaLOG) 300 UNIT/3 ML VIAL SQ SCH ×4 (06:41→20:59)
[2016-08-26 06:49] LABS: Calcium 8.6 mg/dL (8.4-10.2); Potassium 5.3 mmol/L (3.5-5.1); Total Bilirubin 1.6 mg/dL (0.2-1.3); Total Protein 5.7 g/dL (6.3-8.2)
[2016-08-26] MEDS: PANTOPRAZOLE 40 MG TABLET PO SCH (06:52)
[2016-08-26] MEDS: guaiFENesin-DM 100-10MG/5ML 10 ML CUP PO PRN (06:52)
[2016-08-26] MEDS: BUDESONIDE 1 MG/2 ML NEBU INHALATION SCH ×2 (07:12→21:12)
[2016-08-26] MEDS: IPRATROPIUM-ALBUTEROL 3 ML NEB INHALATION SCH ×4 (07:12→21:12)
[2016-08-26] MEDS: FORMOTEROL FUMARATE 20 MCG/2 ML NEBU INHALATION SCH ×2 (07:12→21:12)
[2016-08-26] MEDS: DORZOLAMIDE-TIMOLOL 2-0.5% DROPS 10 ML BTL BOTH EYES SCH ×2 (08:05→20:58)
--- NOTE | 2016-08-26 08:10 | P.PN ---
Subjective Principal diagnosis: Acute on chronic renal failure with influenza B This is Impression 81-year-old white male who has up until yesterday refused to do dialysis. Fluid challenges given which did not reflect an improvement of his appropriate treatment. His renal function did not improve as expected. We did discuss hospice yesterday, he is agreeable now to dialysis. He has been prepped for consultation but is on Eliquis at this time. No sniffing chest pain or shortness of breath stated. He seems more energetic. Objective - Vital Signs Vital signs: Vital Signs Temp 97.2 F L 08/26/16 04:00 Pulse 60 08/26/16 07:26 Resp 18 08/26/16 04:00 BP 91/52 08/26/16 04:00 Pulse Ox 90 L 08/26/16 04:00 Intake & Output 08/25/16 08/26/16 08/26/16 18:59 06:59 18:59 Intake Total 205.931 300 90 Output Total 475 550 Balance -269.069 -250 90 Weight 49.6 kg Intake: Intake, IV Titration 205.931 Amount DOBUTamine DRIP 500 mg In 205.931 Dextrose/Water 1 250ml. bag @ 2.5 MCG/KG/MIN 4.12 mls/hr IV .Q24H [facility] Rx#: [id number] Oral 0 300 90 Output: Urine 475 550 Coude 300 Other: Voiding Method Indwelling Catheter Indwelling Catheter # Bowel Movements 1 0 - Constitutional General appearance: Present: thin - EENT Eyes: Absent: abnormal pupil - Respiratory Respiratory: bilateral: diminished - Cardiovascular Rhythm: irregularly irregular Heart sounds: normal: S1, S2 - Gastrointestinal General gastrointestinal: Present: soft. Absent: tenderness - Integumentary Integumentary: Absent: rash - Musculoskeletal Musculoskeletal: Present: generalized weakness - Psychiatric Psychiatric: Present: A&O x's 3 - Labs CBC & Chem 7: 08/26/16 05:51 08/26/16 05:51 Labs: Abnormal Lab Results - Last 24 Hours (Table) 08/25/16 08/25/16 08/25/16 Range/Units 09:00 11:53 16:51 WBC (3.8-10.6) k/uL Plt Count (150-450) k/uL Neutrophils # (1.3-7.7) k/uL Lymphocytes # (1.0-4.8) k/uL Sodium (137-145) mmol/L Potassium (3.5-5.1) mmol/L Carbon Dioxide (22-30) mmol/L BUN (9-20) mg/dL Creatinine (0.66-1.25) mg/dL Glucose (74-99) mg/dL POC Glucose (mg/dL) 136 H 108 H (75-99) mg/dL Total Bilirubin (0.2-1.3) mg/dL Alkaline Phosphatase (38-126) U/L Total Protein (6.3-8.2) g/dL Albumin (3.5-5.0) g/dL Urine Protein 1+ H (Negative) Amorphous Sediment Rare H (None) /hpf Urine Bacteria Rare H (None) /hpf 08/26/16 08/26/16 08/26/16 Range/Units 05:51 05:51 06:26 WBC 12.6 H (3.8-10.6) k/uL Plt Count 99 L (150-450) k/uL Neutrophils # 11.4 H (1.3-7.7) k/uL Lymphocytes # 0.5 L (1.0-4.8) k/uL Sodium 135 L (137-145) mmol/L Potassium 5.3 H (3.5-5.1) mmol/L Carbon Dioxide 16 L (22-30) mmol/L BUN 126 H* (9-20) mg/dL Creatinine 3.34 H (0.66-1.25) mg/dL Glucose 130 H (74-99) mg/dL POC Glucose (mg/dL) 124 H (75-99) mg/dL Total Bilirubin 1.6 H (0.2-1.3) mg/dL Alkaline Phosphatase 132 H (38-126) U/L Total Protein 5.7 L (6.3-8.2) g/dL Albumin 3.1 L (3.5-5.0) g/dL Urine Protein (Negative) Amorphous Sediment (None) /hpf Urine Bacteria (None) /hpf Microbiology - Last 24 Hours (Table) 08/24/16 23:20 Gram Stain - Preliminary Sputum Sputum Culture - Preliminary Assessment and Plan (1) Afib Status: Acute (2) Bronchospasm with bronchitis, acute Status: Acute (3) Dyspnea Status: Acute (4) AICD (automatic cardioverter/defibrillator) present Status: Acute (5) Diabetes Status: Acute (6) Influenza B Status: Acute (7) Acute renal failure Status: Acute Plan: Await dialysis. Gastric surgery has been consulted for dialysis. Respiratory status is improving. Prognosis is still guarded secondary to his ejection fraction. Questions were answered after discussion with his and the patient. Check BMP in a.m.
[2016-08-26] MEDS: APIXABAN 2.5 MG TABLET PO SCH ×2 (08:12→19:25)
[2016-08-26] MEDS: SODIUM BICARBONATE TAB 650 MG TAB PO SCH ×2 (08:13→20:58)
[2016-08-26] MEDS: MULTIVITAMINS, THERA 1 EACH TAB PO SCH (08:13)
[2016-08-26] MEDS: METOPROLOL SUCCINATE (ER) 50 MG TAB.ER.24H PO SCH (08:13)
[2016-08-26] MEDS: AMIODARONE 200 MG TAB PO SCH ×2 (08:13→20:58)
[2016-08-26] MEDS: DONEPEZIL 5 MG TAB PO SCH (08:13)
[2016-08-26] MEDS: INSULIN DETEMIR 100 UNIT/ML 10 ML VIAL SQ SCH (08:24)
--- NOTE | 2016-08-26 11:03 | P.PN ---
Subjective Patient seen and examined today at bedside family is present. He states he is feeling better overall breathing has improved as well he is not using oxygen at this time, has minimal coughing and no sputum production. The patient has declined hospice evaluation, however he is open to look into dialysis. Objective - Vital Signs Vital signs: Vital Signs Temp 96.8 F L 08/26/16 08:00 Pulse 78 08/26/16 08:00 Resp 18 08/26/16 08:00 BP 102/68 08/26/16 08:00 Pulse Ox 96 08/26/16 08:00 Intake & Output 08/25/16 08/26/16 08/26/16 18:59 06:59 18:59 Intake Total 205.931 300 90 Output Total 475 550 Balance -269.069 -250 90 Weight 49.6 kg Intake: Intake, IV Titration 205.931 Amount DOBUTamine DRIP 500 mg In 205.931 Dextrose/Water 1 250ml. bag @ 2.5 MCG/KG/MIN 4.12 mls/hr IV .Q24H [facility] Rx#: [id number] Oral 0 300 90 Output: Urine 475 550 Coude 300 Other: Voiding Method Indwelling Catheter Indwelling Catheter Indwelling Catheter # Bowel Movements 1 0 - Exam GENERAL EXAM: Alert, active, comfortable in no apparent distress. HEAD: Normocephalic. EYES: Normal reaction of pupils, equal size. NOSE: Clear with pink turbinates. THROAT: No erythema or exudates. NECK: No masses, no JVD. CHEST: No chest wall deformity. LUNGS: Equal air entry and sounds are course, with no crackles, wheeze, rhonchi or dullness. CVS: S1 and S2 normal with no audible mumurs, regular rhythm. ABDOMEN: No hepatosplenomegaly, normal bowel sounds, no guarding or rigidity. SPINE: No scoliosis or deformity SKIN: No rashes CENTRAL NERVOUS SYSTEM: No focal deficits, tone is normal in all 4 extremities. - Labs CBC & Chem 7: 08/26/16 05:51 08/26/16 05:51 Labs: Abnormal Lab Results - Last 24 Hours (Table) 08/25/16 08/25/16 08/25/16 Range/Units 09:00 11:53 16:51 WBC (3.8-10.6) k/uL Plt Count (150-450) k/uL Neutrophils # (1.3-7.7) k/uL Lymphocytes # (1.0-4.8) k/uL Sodium (137-145) mmol/L Potassium (3.5-5.1) mmol/L Carbon Dioxide (22-30) mmol/L BUN (9-20) mg/dL Creatinine (0.66-1.25) mg/dL Glucose (74-99) mg/dL POC Glucose (mg/dL) 136 H 108 H (75-99) mg/dL Total Bilirubin (0.2-1.3) mg/dL Alkaline Phosphatase (38-126) U/L Total Protein (6.3-8.2) g/dL Albumin (3.5-5.0) g/dL Urine Protein 1+ H (Negative) Amorphous Sediment Rare H (None) /hpf Urine Bacteria Rare H (None) /hpf 08/26/16 08/26/16 08/26/16 Range/Units 05:51 05:51 06:26 WBC 12.6 H (3.8-10.6) k/uL Plt Count 99 L (150-450) k/uL Neutrophils # 11.4 H (1.3-7.7) k/uL Lymphocytes # 0.5 L (1.0-4.8) k/uL Sodium 135 L (137-145) mmol/L Potassium 5.3 H (3.5-5.1) mmol/L Carbon Dioxide 16 L (22-30) mmol/L BUN 126 H* (9-20) mg/dL Creatinine 3.34 H (0.66-1.25) mg/dL Glucose 130 H (74-99) mg/dL POC Glucose (mg/dL) 124 H (75-99) mg/dL Total Bilirubin 1.6 H (0.2-1.3) mg/dL Alkaline Phosphatase 132 H (38-126) U/L Total Protein 5.7 L (6.3-8.2) g/dL Albumin 3.1 L (3.5-5.0) g/dL Urine Protein (Negative) Amorphous Sediment (None) /hpf Urine Bacteria (None) /hpf Microbiology - Last 24 Hours (Table) 08/24/16 23:20 Gram Stain - Preliminary Sputum Sputum Culture - Preliminary Assessment and Plan Plan: Assessment #1 acute hypoxic respiratory failure #2 acute exacerbation of CHF, with small bilateral pleural effusions #3 influenza B pneumonia #4 secondary bacterial pneumonia #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 O2 is to maintain at greater saturation of greater than 88%, continue on antibiotics. Tamiflu course is completed. Continue gentle hydration. Dobutamine drip per cardiology. Continue with nebulizer treatments. Continue to monitor for any worsening of the respiratory status or hydration. Nephrology recommendations are appreciated. Cardiology continues to follow. We will continue with supportive care, the overall prognosis remains poor however patient is declining hospice evaluation and wants to proceed with dialysis. I performed an examination of the patient and discussed their mangement with the nurse practitioner. I have reviewed the nurse practitioner's note and agree with the documented findings and plan of care.
[2016-08-26 12:00] LABS: Glucose,Whole Blood 228 mg/dL (75-99)
--- NOTE | 2016-08-26 12:36 | PN ---
Patient is seen for follow-up for chronic kidney disease and acute kidney injury. He is currently being treated for cardiorenal syndrome. He remains on dobutamine drip. Dialysis has been offered previously secondary to worsening renal function. However, patient had declined, but last night it appears that the family has decided to proceed with trial of dialysis. Patient has been voiding. He is a little bit more awake today. His creatinine is at 3.34 with a BUN of 126 which has been progressively rising. Currently patient is not on any Lasix. He has an indwelling Clarke catheter. Urine output is noted to be 1025 mL for the last 24 hours. I have asked him regarding dialysis and he states that he would like to proceed. I have also discussed this with his and I have stated that given his poor ejection fraction, he may not be a good candidate for long-term renal replacement therapy if he is not able to tolerate dialysis in the hospital but we can try to dialyze him. Vascular surgery will be consulted and we will plan our first treatment tomorrow. On examination, blood pressure is 102/68, heart rate 78 per minute. He is afebrile. Examination of the heart S1 and S2. Examination of the lungs: Bilateral breath sounds are heard. ABDOMEN: Soft, nontender. Examination of lower extremities shows edema 2+ bilaterally. [employer]LECT[employer]OP[employer]INE[employer] exam is grossly intact. Labs show sodium 135, potassium 5.3. Hemoglobin 15.9, BUN 126, serum creatinine 3.34, albumin 3.1. ASSESSMENT: 1. Cardiorenal syndrome with worsening renal failure patient is agreed for a trial of dialysis. We will consult vascular surgery and plan for first treatment tomorrow. 2. Cardiomyopathy with ejection fraction of less than 20%. 3. Influenza type B maintained on Tamiflu. PLAN: Consult vascular surgery for PermCath placement and we will plan on dialysis tomorrow. Patient's is advised that this will be a trial to see how he tolerates it as inpatient and he may not be a good candidate for long-term dialysis if he is not able to tolerate the treatments as inpatient.
--- NOTE | 2016-08-26 12:41 | P.GSCN ---
History of Present Illness History of present illness: 81-year-old white male, I was consulted for this from dialysis catheter for acute chronic renal failure BUN/creatinine is is increasing his creatinine was 3.2 and began 117 Medical history patient is suffering from this time and and very weak he also has history of congestive heart failure his ejection fraction is 20% patient also has history of atrial fibrillation on liquids positive for diabetes and hypertension and graft surgical history patient had a cholecystectomy and aicd history in the past Neck examination neck is supple no bruit bruit appreciated Chest patient has a crackles bilateral pulses second sound present Abdomen soft nontender Brachial radial femoral pulses are present Plan is to place the dialysis catheter patient is on elaquis we will arrange for dialysis catheter Past Medical History Past Medical History: Atrial Fibrillation, Heart Failure, Diabetes Mellitus, Hypertension, Renal Disease, Skin Disorder Additional Past Medical History / Comment(s): skin CA, "/PT STATED NEVER HAD HIGH BP", BRONCHITS/BRONCHOSPASM JUN 2016 History of Any Multi-Drug Resistant Organisms: None Reported Past Surgical History: AICD, Cholecystectomy, Hernia Repair Additional Past Surgical History / Comment(s): defibrillator, cataracts removed , skin CA removed from face Past Anesthesia/Blood Transfusion Reactions: No Reported Reaction Type of Cardiac Device: AICD Device Placement Date:: 07-28-11 Past Psychological History: No Psychological Hx Reported Additional Psychological History / Comment(s): Pt resides with his spouse of 53 yrs. He is independent. He drives. Smoking Status: Never smoker Past Alcohol Use History: None Reported Past Drug Use History: None Reported - Past Family History Mother History Unknown: Yes Additional Family Medical History / Comment(s): Pt does not know parents history -he was raised in foster care. Son(s) Family Medical History: AFIB Additional Family Medical History / Comment(s): son had heart transplant Medications and Allergies Home Medications Medication Instructions Recorded Confirmed Type Digoxin [Lanoxin] 125 mcg PO Q48H 09/03/14 08/15/16 History Insulin Detemir [Levemir Flextouch] 22 units SQ QAM 09/03/14 08/15/16 History Lovastatin [Mevacor] 40 mg PO HS 09/03/14 08/15/16 History Multivitamins, Thera [Multivitamin] 1 tab PO DAILY 09/03/14 08/15/16 History hydrALAZINE HCL [Apresoline] 25 mg PO TID 09/03/14 08/15/16 History Apixaban [Eliquis] 2.5 mg PO BID 01/18/16 08/15/16 History Isosorbide Dinitrate [Isordil] 10 mg PO TID 01/18/16 08/15/16 History Rivastigmine Tartrate 1.5 mg PO BID 01/18/16 08/15/16 History [Rivastigmine] Insulin Aspart [NovoLOG Flexpen] See Protocol SQ AC-TID 06/23/16 08/15/16 History Cefuroxime [Ceftin] 500 mg PO BID 08/15/16 08/15/16 History Dorzolamide/Timolol/Pf [Cosopt Pf 1 applicator BOTH EYES BID 08/15/16 08/15/16 History 2%/5% Ophth Droperette] Furosemide [Lasix] 40 mg PO DAILY 08/15/16 08/15/16 History Metoprolol Succinate [Toprol XL] 50 mg PO DAILY 08/15/16 08/15/16 History traMADol HCL [Ultram] 50 mg PO Q6HR PRN 08/15/16 08/15/16 History Allergies Allergy/AdvReac Type Severity Reaction Status Date / Time fish oil Allergy Unknown Verified 08/15/16 13:09 Iodinated Contrast Media - Allergy Rash/Hives Verified 08/15/16 13:09 Oral and [Iodinated Contrast Media - IV Dye] shellfish derived Allergy Rash/Hives Verified 08/15/16 13:09 warfarin sodium Allergy Unknown Verified 08/15/16 13:09 [From Coumadin] Surgical - Exam Vital Signs Temp Pulse Resp BP Pulse Ox 98.9 F 90 20 133/73 95 08/15/16 12:33 08/15/16 12:33 08/15/16 12:33 08/15/16 12:33 08/15/16 12:33 Results - Labs 08/26/16 05:51 08/26/16 05:51 Abnormal Lab Results - Last 24 Hours (Table) 08/25/16 08/26/16 08/26/16 Range/Units 16:51 05:51 05:51 WBC 12.6 H (3.8-10.6) k/uL Plt Count 99 L (150-450) k/uL Neutrophils # 11.4 H (1.3-7.7) k/uL Lymphocytes # 0.5 L (1.0-4.8) k/uL Sodium 135 L (137-145) mmol/L Potassium 5.3 H (3.5-5.1) mmol/L Carbon Dioxide 16 L (22-30) mmol/L BUN 126 H* (9-20) mg/dL Creatinine 3.34 H (0.66-1.25) mg/dL Glucose 130 H (74-99) mg/dL POC Glucose (mg/dL) 108 H (75-99) mg/dL Total Bilirubin 1.6 H (0.2-1.3) mg/dL Alkaline Phosphatase 132 H (38-126) U/L Total Protein 5.7 L (6.3-8.2) g/dL Albumin 3.1 L (3.5-5.0) g/dL 08/26/16 08/26/16 Range/Units 06:26 11:45 WBC (3.8-10.6) k/uL Plt Count (150-450) k/uL Neutrophils # (1.3-7.7) k/uL Lymphocytes # (1.0-4.8) k/uL Sodium (137-145) mmol/L Potassium (3.5-5.1) mmol/L Carbon Dioxide (22-30) mmol/L BUN (9-20) mg/dL Creatinine (0.66-1.25) mg/dL Glucose (74-99) mg/dL POC Glucose (mg/dL) 124 H 228 H (75-99) mg/dL Total Bilirubin (0.2-1.3) mg/dL Alkaline Phosphatase (38-126) U/L Total Protein (6.3-8.2) g/dL Albumin (3.5-5.0) g/dL Microbiology - Last 24 Hours (Table) 08/24/16 23:20 Gram Stain - Preliminary Sputum Sputum Culture - Preliminary Diabetes panel 08/26/16 Range/Units 05:51 Sodium 135 L (137-145) mmol/L Potassium 5.3 H (3.5-5.1) mmol/L Chloride 104 (98-107) mmol/L Carbon Dioxide 16 L (22-30) mmol/L BUN 126 H* (9-20) mg/dL Creatinine 3.34 H (0.66-1.25) mg/dL Glucose 130 H (74-99) mg/dL Calcium 8.6 (8.4-10.2) mg/dL AST 37 (17-59) U/L ALT 64 (21-72) U/L Alkaline Phosphatase 132 H (38-126) U/L Total Protein 5.7 L (6.3-8.2) g/dL Albumin 3.1 L (3.5-5.0) g/dL Calcium panel 08/26/16 Range/Units 05:51 Calcium 8.6 (8.4-10.2) mg/dL Albumin 3.1 L (3.5-5.0) g/dL Pituitary panel 08/26/16 Range/Units 05:51 Sodium 135 L (137-145) mmol/L Potassium 5.3 H (3.5-5.1) mmol/L Chloride 104 (98-107) mmol/L Carbon Dioxide 16 L (22-30) mmol/L BUN 126 H* (9-20) mg/dL Creatinine 3.34 H (0.66-1.25) mg/dL Glucose 130 H (74-99) mg/dL Calcium 8.6 (8.4-10.2) mg/dL Adrenal panel 08/26/16 Range/Units 05:51 Sodium 135 L (137-145) mmol/L Potassium 5.3 H (3.5-5.1) mmol/L Chloride 104 (98-107) mmol/L Carbon Dioxide 16 L (22-30) mmol/L BUN 126 H* (9-20) mg/dL Creatinine 3.34 H (0.66-1.25) mg/dL Glucose 130 H (74-99) mg/dL Calcium 8.6 (8.4-10.2) mg/dL Total Bilirubin 1.6 H (0.2-1.3) mg/dL AST 37 (17-59) U/L ALT 64 (21-72) U/L Alkaline Phosphatase 132 H (38-126) U/L Total Protein 5.7 L (6.3-8.2) g/dL Albumin 3.1 L (3.5-5.0) g/dL
[2016-08-26] MEDS: DOBUTamine DRIP 500 MG in DEXTROSE/WATER 1 250ML.BAG IV SCH (13:25)
[2016-08-26] MEDS ORDERED: FUROSEMIDE 10 MG/ML 4 ML VIAL IV STA (16:19)
--- NOTE | 2016-08-26 16:49 | XR ---
EXAMINATION TYPE: XR abdomen 1V DATE OF EXAM: 08/26/2016 4:38 PM CLINICAL DATA: 81-year-old male with abdominal pain, [facility] COMPARISON: 08/21/2016 FINDINGS: Mild stool burden. Scattered colonic gas extends distally to the rectum. No dilated small bowel loops . Supine imaging limited for assessment of free air. Cholecystectomy clips are present. Right ventric ular AICD lead is visualized. Left mid abdominal millimeter calcification equivocal for vascular calc ification or left-sided renal calculus. IMPRESSION: 1. Nonobstructive bowel gas pattern. Mild scattered stool. 2. A 4 mm left mid abdominal calcification equivocal between renal calculus or vascular calcification .
[2016-08-26 17:07] LABS: Glucose,Whole Blood 184 mg/dL (75-99)
[2016-08-26 17:36] LABS: Glucose,Whole Blood 193 mg/dL (75-99)
[2016-08-26 20:45] LABS: Glucose,Whole Blood 189 mg/dL (75-99)
[2016-08-26] MEDS: ATORVASTATIN 10 MG TAB PO SCH (20:58)
[2016-08-27 06:34] LABS: Basophils % (A) 0 %; CH 30.1; CHCM 33.2; Eosinophils % (A) 0 %; HCT 48.2 % (39.0-53.0); HDW 2.62; HGB 15.4 gm/dL (13.0-17.5); Luc # (Auto) 0.07; Luc % (Auto) 1; Lymphocytes # (A) 0.5 k/uL (1.0-4.8); Lymphocytes % (A) 4 %; MCH 29.2 pg (25.0-35.0); MCV 91.2 fL (80.0-100.0); Mean Platelet Volume 9.6; Monocytes # (A) 0.5 k/uL (0-1.0); Monocytes % (A) 4 %; Neutrophils # (A) 11.7 k/uL (1.3-7.7); Neutrophils % (A) 92 %; RBC 5.29 m/uL (4.30-5.90); RDW 14.9 % (11.5-15.5); WBC 12.8 k/uL (3.8-10.6); WBC (Perox) 12.99
[2016-08-27 06:48] LABS: Glucose,Whole Blood 121 mg/dL (75-99)
[2016-08-27] MEDS: INSULIN LISPRO (humaLOG) 300 UNIT/3 ML VIAL SQ SCH ×4 (06:55→21:24)
[2016-08-27 06:57] LABS: Calcium 8.5 mg/dL (8.4-10.2); Total Bilirubin 1.4 mg/dL (0.2-1.3); Total Protein 5.4 g/dL (6.3-8.2)
[2016-08-27] MEDS: PANTOPRAZOLE 40 MG TABLET PO SCH (06:58)
[2016-08-27] MEDS: methylPREDNISolone SOD SUCCI 40 MG/ML 1 ML VIAL IV SCH ×4 (06:58→23:42)
[2016-08-27] MEDS: BUDESONIDE 1 MG/2 ML NEBU INHALATION SCH ×2 (08:14→21:03)
[2016-08-27] MEDS: FORMOTEROL FUMARATE 20 MCG/2 ML NEBU INHALATION SCH ×2 (08:14→21:03)
[2016-08-27] MEDS: IPRATROPIUM-ALBUTEROL 3 ML NEB INHALATION SCH ×4 (08:14→21:04)
--- NOTE | 2016-08-27 08:17 | P.PN ---
Objective - Vital Signs Vital signs: Vital Signs Temp 96.9 F L 08/27/16 04:00 Pulse 61 08/27/16 04:00 Resp 18 08/27/16 04:00 BP 93/64 08/27/16 04:00 Pulse Ox 95 08/27/16 04:00 Intake & Output 08/26/16 08/27/16 08/27/16 18:59 06:59 18:59 Intake Total 420 Output Total 300 900 Balance 120 -900 Weight 56 kg Intake: Intake, IV Titration 50 Amount cefTRIAXone 1,000 mg In 50 Sodium Chloride 0.9% 50 ml @ 100 mls/hr IVPB Q24HR [facility] Rx#:[id number] Oral 370 Output: Urine 300 900 Other: Voiding Method Indwelling Catheter Indwelling Catheter # Bowel Movements 0 - Constitutional General appearance: Present: thin - EENT Eyes: Absent: abnormal pupil - Respiratory Respiratory: bilateral: diminished - Gastrointestinal Gastrointestinal Comment(s): Ascites is noted. General gastrointestinal: Present: soft - Integumentary Integumentary Comment(s): Scrotal edema is noted. - Neurologic Neurologic: Absent: focal deficits - Labs CBC & Chem 7: 08/27/16 06:00 08/27/16 06:00 Labs: Abnormal Lab Results - Last 24 Hours (Table) 08/26/16 08/26/16 08/26/16 Range/Units 11:45 16:42 17:15 WBC (3.8-10.6) k/uL Sodium (137-145) mmol/L Carbon Dioxide (22-30) mmol/L BUN (9-20) mg/dL Creatinine (0.66-1.25) mg/dL Glucose (74-99) mg/dL POC Glucose (mg/dL) 228 H 184 H 193 H (75-99) mg/dL Total Bilirubin (0.2-1.3) mg/dL Total Protein (6.3-8.2) g/dL Albumin (3.5-5.0) g/dL 08/26/16 08/27/16 08/27/16 Range/Units 20:44 06:00 06:00 WBC 12.8 H (3.8-10.6) k/uL Sodium 136 L (137-145) mmol/L Carbon Dioxide 20 L (22-30) mmol/L BUN 126 H* (9-20) mg/dL Creatinine 3.19 H (0.66-1.25) mg/dL Glucose 129 H (74-99) mg/dL POC Glucose (mg/dL) 189 H (75-99) mg/dL Total Bilirubin 1.4 H (0.2-1.3) mg/dL Total Protein 5.4 L (6.3-8.2) g/dL Albumin 2.9 L (3.5-5.0) g/dL 08/27/16 Range/Units 06:34 WBC (3.8-10.6) k/uL Sodium (137-145) mmol/L Carbon Dioxide (22-30) mmol/L BUN (9-20) mg/dL Creatinine (0.66-1.25) mg/dL Glucose (74-99) mg/dL POC Glucose (mg/dL) 121 H (75-99) mg/dL Total Bilirubin (0.2-1.3) mg/dL Total Protein (6.3-8.2) g/dL Albumin (3.5-5.0) g/dL Microbiology - Last 24 Hours (Table) 08/24/16 23:20 Gram Stain - Preliminary Sputum Sputum Culture - Preliminary Gram Neg Bacilli Assessment and Plan (1) Afib Status: Acute (2) Bronchospasm with bronchitis, acute Status: Acute (3) Dyspnea Status: Acute (4) AICD (automatic cardioverter/defibrillator) present Status: Acute (5) Diabetes Status: Acute (6) Influenza B Status: Acute (7) Acute renal failure Status: Acute Plan: Await vascular surgery input for dialysis catheter. Prognosis is still guarded. We went ahead and had a long discussion with the today. She does understand the risk and benefit ratio of what we are doing. We will go ahead and continue to follow closely. New Check CMP in a.m. Continue dobutamine. Time with Patient: Less than 30
[2016-08-27] MEDS: AMIODARONE 200 MG TAB PO SCH ×2 (09:09→21:25)
[2016-08-27] MEDS: METOPROLOL SUCCINATE (ER) 50 MG TAB.ER.24H PO SCH (09:09)
[2016-08-27] MEDS: DONEPEZIL 5 MG TAB PO SCH (09:09)
[2016-08-27] MEDS: DORZOLAMIDE-TIMOLOL 2-0.5% DROPS 10 ML BTL BOTH EYES SCH ×2 (09:09→21:25)
[2016-08-27] MEDS: MULTIVITAMINS, THERA 1 EACH TAB PO SCH (09:10)
[2016-08-27] MEDS: SODIUM BICARBONATE TAB 650 MG TAB PO SCH (09:10)
--- NOTE | 2016-08-27 10:05 | P.PN ---
Subjective Principal diagnosis: Acute exacerbation of CHF Patient seen and examined today at bedside family is present. He states he is feeling better overall breathing has improved, he is using his oxygen time, has more coughing today then yesterday and no sputum production. The patient has multiple comorbidities and his prognosis is highly guarded. The patient has declined hospice evaluation, however wants to proceed with dialysis. Patient is supposed to get a dialysis cath placement today. Objective - Vital Signs Vital signs: Vital Signs Temp 96.9 F L 08/27/16 04:00 Pulse 56 L 08/27/16 08:14 Resp 18 08/27/16 04:00 BP 93/64 08/27/16 04:00 Pulse Ox 95 08/27/16 04:00 Intake & Output 08/26/16 08/27/16 08/27/16 18:59 06:59 18:59 Intake Total 420 Output Total 300 900 Balance 120 -900 Weight 56 kg Intake: Intake, IV Titration 50 Amount cefTRIAXone 1,000 mg In 50 Sodium Chloride 0.9% 50 ml @ 100 mls/hr IVPB Q24HR [facility] Rx#:[id number] Oral 370 Output: Urine 300 900 Other: Voiding Method Indwelling Catheter Indwelling Catheter # Bowel Movements 0 - Exam GENERAL EXAM: Alert, active, comfortable in no apparent distress. HEAD: Normocephalic. EYES: Normal reaction of pupils, equal size. NOSE: Clear with pink turbinates. THROAT: No erythema or exudates. NECK: No masses, no JVD. CHEST: No chest wall deformity. LUNGS: Bilaterally diminished and coarse, some faint wheezing noted CVS: S1 and S2 normal with no audible mumurs, regular rhythm. ABDOMEN: No hepatosplenomegaly, normal bowel sounds, no guarding or rigidity. SPINE: No scoliosis or deformity SKIN: No rashes CENTRAL NERVOUS SYSTEM: No focal deficits, tone is normal in all 4 extremities. - Labs CBC & Chem 7: 08/27/16 06:00 08/27/16 06:00 Labs: Abnormal Lab Results - Last 24 Hours (Table) 08/26/16 08/26/16 08/26/16 Range/Units 11:45 16:42 17:15 WBC (3.8-10.6) k/uL Plt Count (150-450) k/uL Neutrophils # (1.3-7.7) k/uL Lymphocytes # (1.0-4.8) k/uL Sodium (137-145) mmol/L Carbon Dioxide (22-30) mmol/L BUN (9-20) mg/dL Creatinine (0.66-1.25) mg/dL Glucose (74-99) mg/dL POC Glucose (mg/dL) 228 H 184 H 193 H (75-99) mg/dL Total Bilirubin (0.2-1.3) mg/dL Total Protein (6.3-8.2) g/dL Albumin (3.5-5.0) g/dL 08/26/16 08/27/16 08/27/16 Range/Units 20:44 06:00 06:00 WBC 12.8 H (3.8-10.6) k/uL Plt Count 94 L (150-450) k/uL Neutrophils # 11.7 H (1.3-7.7) k/uL Lymphocytes # 0.5 L (1.0-4.8) k/uL Sodium 136 L (137-145) mmol/L Carbon Dioxide 20 L (22-30) mmol/L BUN 126 H* (9-20) mg/dL Creatinine 3.19 H (0.66-1.25) mg/dL Glucose 129 H (74-99) mg/dL POC Glucose (mg/dL) 189 H (75-99) mg/dL Total Bilirubin 1.4 H (0.2-1.3) mg/dL Total Protein 5.4 L (6.3-8.2) g/dL Albumin 2.9 L (3.5-5.0) g/dL 08/27/16 Range/Units 06:34 WBC (3.8-10.6) k/uL Plt Count (150-450) k/uL Neutrophils # (1.3-7.7) k/uL Lymphocytes # (1.0-4.8) k/uL Sodium (137-145) mmol/L Carbon Dioxide (22-30) mmol/L BUN (9-20) mg/dL Creatinine (0.66-1.25) mg/dL Glucose (74-99) mg/dL POC Glucose (mg/dL) 121 H (75-99) mg/dL Total Bilirubin (0.2-1.3) mg/dL Total Protein (6.3-8.2) g/dL Albumin (3.5-5.0) g/dL Microbiology - Last 24 Hours (Table) 08/24/16 23:20 Gram Stain - Final Sputum Sputum Culture - Final Pseudomonas aeruginosa Assessment and Plan Plan: Assessment #1 acute hypoxic respiratory failure #2 acute exacerbation of CHF, with small bilateral pleural effusions #3 influenza B pneumonia #4 secondary bacterial pneumonia #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 O2 is to maintain at greater saturation of greater than 88%, continue on antibiotics. Tamiflu course is completed. Continue gentle hydration. Continue with nebulizer treatments. Continue to monitor for any worsening of the respiratory status or hydration. Nephrology is on the case and will start dialysis today. Cardiology continues to follow. We will continue with supportive care, the overall prognosis remains poor however patient is declining hospice evaluation and wants to proceed with dialysis. I performed an examination of the patient and discussed their management with the nurse practitioner. I have reviewed the nurse practitioner's note and agree with the documented findings and plan of care.
[2016-08-27 12:44] LABS: Glucose,Whole Blood 158 mg/dL (75-99)
[2016-08-27] MEDS: INSULIN DETEMIR 100 UNIT/ML 10 ML VIAL SQ SCH (12:51)
[2016-08-27] MEDS ORDERED: HEPARIN SODIUM 1,000 UNIT/ML VIAL ONE (15:11)
[2016-08-27] MEDS ORDERED: fentaNYL (PF) 50 MCG/ML 2 ML AMP ONE (15:11)
[2016-08-27] MEDS ORDERED: LIDOCAINE 2% INJ 20 MG/ML (20 ML MDV) ONE (15:11)
[2016-08-27] MEDS ORDERED: LIDOCAINE 2% INJ 20 MG/ML SQ ONE ×2 (15:39→15:40)
[2016-08-27] MEDS ORDERED: IV FLUID CONTINUATION 650 ML IV ONE (15:41)
[2016-08-27] MEDS ORDERED: HEPARIN SODIUM 1,000 UNIT/ML VIAL MISCELLANE ONE (15:53)
[2016-08-27 17:26] LABS: Glucose,Whole Blood 209 mg/dL (75-99)
--- NOTE | 2016-08-27 18:07 | PN ---
Patient is seen for follow-up for acute kidney injury, mainly cardiorenal and not improving with worsening renal function. Patient has been maintained on dobutamine drip, which is now discontinued. His BUN has been progressively increasing with an increase in his creatinine and he had low urine output previously. Dialysis had been offered and initially patient had refused; however, he has agreed for renal replacement therapy now. He is scheduled to have dialysis catheter placed today. Patient had been on Eliquis therefore femoral Titus will be reinserted rather than an IJ Perm-A-Cath secondary to risk of bleeding. Patient will receive his first dialysis treatment today. On examination, blood pressure is 104/69, heart rate 58 per minute. He is afebrile. Examination of the heart S1 and S2. Examination of the lungs: Bilateral breath sounds are heard. ABDOMEN: Soft, nontender. Examination of lower extremities shows edema 1+ bilaterally. [employer] exam is grossly intact. Patient is weak but moving all 4 extremities. Labs show sodium 136, potassium 5.0, BUN 126, serum creatinine 3.19. Hemoglobin 15.4 g/dL. ASSESSMENT: 1. Acute kidney injury, cardiorenal in nature with worsening renal failure, not responding to dobutamine, currently started on dialysis, mainly on a trial basis. 2. Volume overload. Expect improvement with dialysis. We will try Lasix as well. 3. Influenza type B maintained on Tamiflu. 4. Cardiomyopathy with ejection fraction of less than 20%. PLAN: Hemodialysis today. Depending on how the patient tolerates it, we will plan for another treatment tomorrow. We will be placing femoral Titus catheter rather than IJ Perm-A-Cath secondary to patient being on Eliquis and increased risk of bleeding. If patient is able to tolerate dialysis, we will switch him the access to an IJ Perm-A-Cath in the next 2 to 3 days. In the meantime, I will also maintain him on Lasix.
[2016-08-27] MEDS: DOBUTamine DRIP 500 MG in DEXTROSE/WATER 1 250ML.BAG IV SCH (18:11)
[2016-08-27] MEDS: NYSTATIN 100,000 UNIT/ML SUSP 500,000 UNIT/5 ML CUP PO SCH ×3 (18:12→21:28)
[2016-08-27 20:55] LABS: Glucose,Whole Blood 145 mg/dL (75-99)
[2016-08-27] MEDS: LEVOFLOXACIN 250MG-D5W PMX 250 MG in DEXTROSE/WATER 1 50ML.BAG IVPB SCH (21:05)
[2016-08-27] MEDS: FUROSEMIDE 10 MG/ML 4 ML VIAL IV SCH (21:24)
[2016-08-27] MEDS: ATORVASTATIN 10 MG TAB PO SCH (21:25)
[2016-08-27] MEDS: MEGESTROL 400 MG/10 ML CUP PO SCH (21:25)
[2016-08-28] MEDS ORDERED: diphenhydrAMINE 50 MG/ML 1 ML VIAL IVP PRN (00:18)
[2016-08-28 05:52] LABS: Glucose,Whole Blood 193 mg/dL (75-99)
[2016-08-28] MEDS: methylPREDNISolone SOD SUCCI 40 MG/ML 1 ML VIAL IV SCH ×3 (06:31→17:25)
[2016-08-28] MEDS: INSULIN LISPRO (humaLOG) 300 UNIT/3 ML VIAL SQ SCH ×4 (06:31→21:25)
[2016-08-28] MEDS: PANTOPRAZOLE 40 MG TABLET PO SCH (06:32)
[2016-08-28 07:06] LABS: Basophils % (A) 0 %; CH 29.1; CHCM 32.6; Eosinophils % (A) 0 %; HCT 46.9 % (39.0-53.0); HGB 14.9 gm/dL (13.0-17.5); Luc # (Auto) 0.05; Luc % (Auto) 0; Lymphocytes # (A) 0.4 k/uL (1.0-4.8); Lymphocytes % (A) 3 %; MCH 28.6 pg (25.0-35.0); MCHC 31.8 g/dL (31.0-37.0); MCV 89.9 fL (80.0-100.0); Mean Platelet Volume 8.7; Monocytes # (A) 0.5 k/uL (0-1.0); Monocytes % (A) 3 %; Neutrophils # (A) 13.1 k/uL (1.3-7.7); Neutrophils % (A) 93 %; RBC 5.22 m/uL (4.30-5.90); RDW 14.7 % (11.5-15.5); WBC 14.1 k/uL (3.8-10.6); WBC (Perox) 14.85
[2016-08-28 07:29] LABS: Calcium 7.7 mg/dL (8.4-10.2); Potassium 4.8 mmol/L (3.5-5.1); Total Bilirubin 1.7 mg/dL (0.2-1.3); Total Protein 4.9 g/dL (6.3-8.2)
--- NOTE | 2016-08-28 08:00 | P.PN ---
Subjective Principal diagnosis: Acute on chronic renal failure with influenza B This is secondhand pressure 81-year-old white male essentially admitted for pneumonia with influenza B been found. He has suffered from a acute on chronic renal failure and is receiving hemodialysis. Prognosis is poor secondary to his overall ejection fraction. He states less pain today. Objective - Vital Signs Vital signs: Vital Signs Temp 96.8 F L 08/28/16 04:00 Pulse 93 08/28/16 04:00 Resp 18 08/28/16 04:00 BP 89/63 08/28/16 04:00 Pulse Ox 95 08/28/16 04:00 Intake & Output 08/27/16 08/28/16 08/28/16 18:59 06:59 18:59 Intake Total 550 50 Output Total 600 650 Balance -50 -600 Weight 56 kg 56.1 kg Intake: IV 10 Intake, IV Titration 100 50 Amount Levofloxacin 250Mg-D5w 50 Pmx 250 mg In Dextrose/ Water 1 50ml.bag @ 50 mls /hr IVPB Q48H [facility] Rx#: [id number] cefTRIAXone 1,000 mg In 100 Sodium Chloride 0.9% 50 ml @ 100 mls/hr IVPB Q24HR [facility] Rx#:[id number] Oral 440 0 Output: Urine 600 650 Other: Voiding Method Indwelling Catheter Indwelling Catheter # Voids 0 1 # Bowel Movements 0 - EENT Eyes: Absent: abnormal pupil - Respiratory Respiratory: bilateral: diminished - Cardiovascular Rhythm: regular Heart sounds: normal: S1, S2 - Gastrointestinal General gastrointestinal: Present: soft. Absent: tenderness - Labs CBC & Chem 7: 08/28/16 06:44 08/28/16 06:44 Labs: Abnormal Lab Results - Last 24 Hours (Table) 08/27/16 08/27/16 08/27/16 Range/Units 06:00 12:02 17:04 WBC 12.8 H (3.8-10.6) k/uL Plt Count 94 L (150-450) k/uL Neutrophils # 11.7 H (1.3-7.7) k/uL Lymphocytes # 0.5 L (1.0-4.8) k/uL Sodium (137-145) mmol/L Carbon Dioxide (22-30) mmol/L BUN (9-20) mg/dL Creatinine (0.66-1.25) mg/dL Glucose (74-99) mg/dL POC Glucose (mg/dL) 158 H 209 H (75-99) mg/dL Calcium (8.4-10.2) mg/dL Total Bilirubin (0.2-1.3) mg/dL Total Protein (6.3-8.2) g/dL Albumin (3.5-5.0) g/dL 08/27/16 08/28/16 08/28/16 Range/Units 20:54 05:51 06:44 WBC 14.1 H (3.8-10.6) k/uL Plt Count 66 L (150-450) k/uL Neutrophils # 13.1 H (1.3-7.7) k/uL Lymphocytes # 0.4 L (1.0-4.8) k/uL Sodium (137-145) mmol/L Carbon Dioxide (22-30) mmol/L BUN (9-20) mg/dL Creatinine (0.66-1.25) mg/dL Glucose (74-99) mg/dL POC Glucose (mg/dL) 145 H 193 H (75-99) mg/dL Calcium (8.4-10.2) mg/dL Total Bilirubin (0.2-1.3) mg/dL Total Protein (6.3-8.2) g/dL Albumin (3.5-5.0) g/dL 08/28/16 Range/Units 06:44 WBC (3.8-10.6) k/uL Plt Count (150-450) k/uL Neutrophils # (1.3-7.7) k/uL Lymphocytes # (1.0-4.8) k/uL Sodium 135 L (137-145) mmol/L Carbon Dioxide 18 L (22-30) mmol/L BUN 94 H* (9-20) mg/dL Creatinine 2.64 H (0.66-1.25) mg/dL Glucose 202 H (74-99) mg/dL POC Glucose (mg/dL) (75-99) mg/dL Calcium 7.7 L (8.4-10.2) mg/dL Total Bilirubin 1.7 H (0.2-1.3) mg/dL Total Protein 4.9 L (6.3-8.2) g/dL Albumin 2.5 L (3.5-5.0) g/dL Microbiology - Last 24 Hours (Table) 08/24/16 23:20 Gram Stain - Final Sputum Sputum Culture - Final Pseudomonas aeruginosa Assessment and Plan (1) Afib Status: Acute (2) Bronchospasm with bronchitis, acute Status: Acute (3) Dyspnea Status: Acute (4) AICD (automatic cardioverter/defibrillator) present Status: Acute (5) Diabetes Status: Acute (6) Influenza B Status: Acute (7) Acute renal failure Status: Acute Plan: Await dialysis. Otherwise, check CMP in a.m. Prognosis is guarded secondary to his multiple comorbidities. We'll continue to follow closely.
--- NOTE | 2016-08-28 08:11 | PCN ---
DATE OF PROCEDURE: PREOPERATIVE DIAGNOSIS: Acute on chronic renal failure. PROCEDURE: Placement of dialysis catheter, right femoral approach. This patient was brought to the medical lab technologist. Right groin was prepped and draped in the usual sterile manner. Patient ultrasound-guided needle was introduced in right common femoral vein. Micropuncture needle was used and micropuncture guide was passed and 4 Arabic dilator was advanced on top of the micropuncture and guidewire then we passed a regular guidewire and we passed a dilator on the top of the guidewire. Then we placed 20 cm dialysis catheter, flushed with heparin saline and hep-locked and secured with 3-0 nylon. Dressing applied. The patient tolerated the procedure well.
[2016-08-28] MEDS: DOBUTamine DRIP 500 MG in DEXTROSE/WATER 1 250ML.BAG IV SCH (08:36)
[2016-08-28] MEDS: AMIODARONE 200 MG TAB PO SCH ×2 (08:37→21:25)
[2016-08-28] MEDS: METOPROLOL SUCCINATE (ER) 50 MG TAB.ER.24H PO SCH (08:37)
[2016-08-28] MEDS: NYSTATIN 100,000 UNIT/ML SUSP 500,000 UNIT/5 ML CUP PO SCH ×4 (08:37→21:25)
[2016-08-28] MEDS: DORZOLAMIDE-TIMOLOL 2-0.5% DROPS 10 ML BTL BOTH EYES SCH ×2 (08:37→21:24)
[2016-08-28] MEDS: MULTIVITAMINS, THERA 1 EACH TAB PO SCH (08:37)
[2016-08-28] MEDS: DONEPEZIL 5 MG TAB PO SCH (08:37)
[2016-08-28] MEDS: FUROSEMIDE 10 MG/ML 4 ML VIAL IV SCH ×2 (08:38→21:21)
[2016-08-28] MEDS: MEGESTROL 400 MG/10 ML CUP PO SCH (08:38)
[2016-08-28] MEDS: INSULIN DETEMIR 100 UNIT/ML 10 ML VIAL SQ SCH (08:41)
[2016-08-28] MEDS: IPRATROPIUM-ALBUTEROL 3 ML NEB INHALATION SCH ×4 (09:32→20:06)
[2016-08-28] MEDS: FORMOTEROL FUMARATE 20 MCG/2 ML NEBU INHALATION SCH ×2 (09:32→20:05)
[2016-08-28] MEDS: BUDESONIDE 1 MG/2 ML NEBU INHALATION SCH ×2 (09:32→20:05)
--- NOTE | 2016-08-28 09:44 | IR ---
Fluoroscopy HISTORY: Dialysis catheter placement 0.1 minutes fluoroscopy time supplied to the referring clinician. 11 intraoperative C-arm images doc ument the procedure. See dictated report from vascular surgery.
--- NOTE | 2016-08-28 10:06 | P.PN ---
Subjective Principal diagnosis: Acute exacerbation of CHF Interval history since last pulmonary progress note: The patient being reevaluated and examined today at bedside on the selective care unit. Patient states he is feeling better overall breathing has improved, he is using his oxygen time, has continued coughing with small yellow sputum production. The patient has multiple comorbidities and his prognosis is highly guarded. The patient had a dialysis cath inserted and received dialysis yesterday, they were able to pull off a volume of 500 mL and that they are expected to pull off another 500 today and the next day for a total of 1500 mls over 3 days, per the report from the nursing staff. Objective - Vital Signs Vital signs: Vital Signs Temp 97.3 F L 08/28/16 08:00 Pulse 88 08/28/16 09:52 Resp 18 08/28/16 08:00 BP 96/58 08/28/16 08:00 Pulse Ox 97 08/28/16 08:00 Intake & Output 08/27/16 08/28/16 08/28/16 18:59 06:59 18:59 Intake Total 550 300 240 Output Total 600 650 150 Balance -50 -350 90 Weight 56 kg 56.1 kg Intake: IV 10 Intake, IV Titration 100 300 Amount DOBUTamine DRIP 500 mg In 250 Dextrose/Water 1 250ml. bag @ 2.5 MCG/KG/MIN 4.12 mls/hr IV .Q24H [facility] Rx#: [id number] Levofloxacin 250Mg-D5w 50 Pmx 250 mg In Dextrose/ Water 1 50ml.bag @ 50 mls /hr IVPB Q48H [facility] Rx#: [id number] cefTRIAXone 1,000 mg In 100 Sodium Chloride 0.9% 50 ml @ 100 mls/hr IVPB Q24HR [facility] Rx#:[id number] Oral 440 0 240 Output: Urine 600 650 150 Coude 150 Other: Voiding Method Indwelling Catheter Indwelling Catheter Indwelling Catheter # Voids 0 1 # Bowel Movements 0 - Exam GENERAL EXAM: Alert, active, comfortable in no apparent distress. HEAD: Normocephalic. EYES: Normal reaction of pupils, equal size. NOSE: Clear with pink turbinates. THROAT: No erythema or exudates. NECK: No masses, no JVD. CHEST: No chest wall deformity. LUNGS: Bilaterally diminished and coarse, some faint wheezing noted CVS: S1 and S2 normal with no audible mumurs, regular rhythm. ABDOMEN: No hepatosplenomegaly, normal bowel sounds, no guarding or rigidity. SPINE: No scoliosis or deformity SKIN: No rashes CENTRAL NERVOUS SYSTEM: No focal deficits, tone is normal in all 4 extremities. - Labs CBC & Chem 7: 08/28/16 06:44 08/28/16 06:44 Labs: Abnormal Lab Results - Last 24 Hours (Table) 08/27/16 08/27/16 08/27/16 Range/Units 12:02 17:04 20:54 WBC (3.8-10.6) k/uL Plt Count (150-450) k/uL Neutrophils # (1.3-7.7) k/uL Lymphocytes # (1.0-4.8) k/uL Sodium (137-145) mmol/L Carbon Dioxide (22-30) mmol/L BUN (9-20) mg/dL Creatinine (0.66-1.25) mg/dL Glucose (74-99) mg/dL POC Glucose (mg/dL) 158 H 209 H 145 H (75-99) mg/dL Calcium (8.4-10.2) mg/dL Total Bilirubin (0.2-1.3) mg/dL Total Protein (6.3-8.2) g/dL Albumin (3.5-5.0) g/dL 08/28/16 08/28/16 08/28/16 Range/Units 05:51 06:44 06:44 WBC 14.1 H (3.8-10.6) k/uL Plt Count 66 L (150-450) k/uL Neutrophils # 13.1 H (1.3-7.7) k/uL Lymphocytes # 0.4 L (1.0-4.8) k/uL Sodium 135 L (137-145) mmol/L Carbon Dioxide 18 L (22-30) mmol/L BUN 94 H* (9-20) mg/dL Creatinine 2.64 H (0.66-1.25) mg/dL Glucose 202 H (74-99) mg/dL POC Glucose (mg/dL) 193 H (75-99) mg/dL Calcium 7.7 L (8.4-10.2) mg/dL Total Bilirubin 1.7 H (0.2-1.3) mg/dL Total Protein 4.9 L (6.3-8.2) g/dL Albumin 2.5 L (3.5-5.0) g/dL Microbiology - Last 24 Hours (Table) 08/24/16 23:20 Gram Stain - Final Sputum Sputum Culture - Final Pseudomonas aeruginosa Assessment and Plan Plan: Assessment #1 acute hypoxic respiratory failure #2 acute exacerbation of CHF, with small bilateral pleural effusions #3 influenza B pneumonia #4 secondary bacterial pneumonia #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 O2 is to maintain at greater saturation of greater than 88%, continue on antibiotics. Tamiflu course is completed. Continue gentle hydration. Continue with nebulizer treatments. Continue to monitor for any worsening of the respiratory status or hydration. Nephrology is on the case, and managing dialysis. Cardiology continues to follow. We will continue with supportive care, the overall prognosis remains poor however patient is declining hospice evaluation. I performed an examination of the patient and discussed their management with the nurse practitioner. I have reviewed the nurse practitioner's note and agree with the documented findings and plan of care.
[2016-08-28] MEDS: traMADol 50 MG TAB PO PRN (11:25)
[2016-08-28 11:47] LABS: Glucose,Whole Blood 185 mg/dL (75-99)
--- NOTE | 2016-08-28 15:01 | PN ---
Patient is seen for follow-up for acute kidney injury, mainly cardiorenal with worsening renal failure and volume overload. Patient was started on dialysis. He had his first treatment yesterday. He states he is doing slightly better. He is awake. He is not in any acute distress. Blood pressure is 100/47, heart rate 66 per minute. He is afebrile. Examination of the heart S1 and S2. Examination of lungs: Decreased breath sounds in bases. Abdomen is soft, nontender. Examination of lower extremities shows edema 1+ bilaterally. MUSIC PA[employer]OR exam is grossly intact. Labs show sodium 135, potassium 4.8; BUN 94, serum creatinine 2.6, hemoglobin at 14.9 g/dL. ASSESSMENT: 1. Acute kidney injury, cardiorenal, currently on dialysis. Patient had his first treatment yesterday. He will be dialyzed again today. He did okay with blood pressure being marginal and we had about 1.2 liters of ultrafiltration yesterday. We will try to increase ultrafiltration again today as tolerated. 2. Severe cardiomyopathy. 3. Influenza type B. Maintained on Tamiflu. 4. Volume overload, maintained on IV Lasix as well as dialysis. PLAN: Repeat dialysis today as well as tomorrow. Continue with Lasix and we will change to IJ Perm-A-Cath either over the weekend or on Thursday. Simi has been on hold.
[2016-08-28 16:52] LABS: Glucose,Whole Blood 224 mg/dL (75-99)
[2016-08-28 20:50] LABS: Glucose,Whole Blood 219 mg/dL (75-99)
[2016-08-28] MEDS: ATORVASTATIN 10 MG TAB PO SCH (21:25)
[2016-08-29] MEDS: methylPREDNISolone SOD SUCCI 40 MG/ML 1 ML VIAL IV SCH ×4 (00:37→17:10)
[2016-08-29 05:58] LABS: Glucose,Whole Blood 308 mg/dL (75-99)
[2016-08-29 06:43] LABS: CH 29.4; HCT 45.6 % (39.0-53.0); HGB 15.3 gm/dL (13.0-17.5); MCHC 33.5 g/dL (31.0-37.0); MCV 89.6 fL (80.0-100.0); RBC 5.09 m/uL (4.30-5.90); RDW 14.9 % (11.5-15.5)
[2016-08-29 06:58] LABS: Calcium 7.8 mg/dL (8.4-10.2); Potassium 4.5 mmol/L (3.5-5.1); Total Bilirubin 1.5 mg/dL (0.2-1.3)
[2016-08-29] MEDS: INSULIN LISPRO (humaLOG) 300 UNIT/3 ML VIAL SQ SCH ×4 (07:03→20:35)
[2016-08-29] MEDS: PANTOPRAZOLE 40 MG TABLET PO SCH (07:03)
--- NOTE | 2016-08-29 07:59 | P.PN ---
Subjective Principal diagnosis: Acute on chronic renal failure with influenza B This is an 81-year-old white male essentially admitted for influenza B with pneumonia which has been treated. However, he is developed acute on chronic renal failure. Dialysis is being managed by nephrology. Appreciate pulmonology input. The patient actually feels stable today. No complaint of pain. Objective - Vital Signs Vital signs: Vital Signs Temp 97.2 F L 08/29/16 00:00 Pulse 64 08/29/16 04:00 Resp 18 08/29/16 04:00 BP 119/61 08/29/16 04:00 Pulse Ox 96 08/29/16 04:00 Intake & Output 08/28/16 08/29/16 08/29/16 18:59 06:59 18:59 Intake Total 340 300 Output Total 150 400 Balance 190 -100 Weight 55 kg Intake: Intake, IV Titration 100 100 Amount cefTAZidime 2 gm In 100 100 Sodium Chloride 0.9% 100 ml @ 100 mls/hr IVPB Q12HR [facility] Rx#:[id number] Oral 240 200 Output: Urine 150 400 Coude 150 Other: Voiding Method Indwelling Catheter Indwelling Catheter # Bowel Movements 0 - Constitutional General appearance: Present: thin - EENT Eyes: Absent: abnormal pupil - Respiratory Respiratory: bilateral: diminished - Cardiovascular Rhythm: irregularly irregular Heart sounds: normal: S1, S2 - Gastrointestinal General gastrointestinal: Absent: tenderness - Neurologic Neurologic: Present: CNII-XII intact - Labs CBC & Chem 7: 08/29/16 06:25 08/29/16 06:25 Labs: Abnormal Lab Results - Last 24 Hours (Table) 08/28/16 08/28/16 08/28/16 Range/Units 11:43 16:37 20:49 WBC (3.8-10.6) k/uL Plt Count (150-450) k/uL Sodium (137-145) mmol/L Carbon Dioxide (22-30) mmol/L BUN (9-20) mg/dL Creatinine (0.66-1.25) mg/dL Glucose (74-99) mg/dL POC Glucose (mg/dL) 185 H 224 H 219 H (75-99) mg/dL Calcium (8.4-10.2) mg/dL Total Bilirubin (0.2-1.3) mg/dL Alkaline Phosphatase (38-126) U/L Total Protein (6.3-8.2) g/dL Albumin (3.5-5.0) g/dL 08/29/16 08/29/16 08/29/16 Range/Units 05:56 06:25 06:25 WBC 16.0 H (3.8-10.6) k/uL Plt Count 52 L (150-450) k/uL Sodium 134 L (137-145) mmol/L Carbon Dioxide 21 L (22-30) mmol/L BUN 70 H (9-20) mg/dL Creatinine 2.40 H (0.66-1.25) mg/dL Glucose 333 H (74-99) mg/dL POC Glucose (mg/dL) 308 H (75-99) mg/dL Calcium 7.8 L (8.4-10.2) mg/dL Total Bilirubin 1.5 H (0.2-1.3) mg/dL Alkaline Phosphatase 127 H (38-126) U/L Total Protein 5.0 L (6.3-8.2) g/dL Albumin 2.6 L (3.5-5.0) g/dL Assessment and Plan (1) Afib Status: Acute (2) Bronchospasm with bronchitis, acute Status: Acute (3) Dyspnea Status: Acute (4) AICD (automatic cardioverter/defibrillator) present Status: Acute (5) Diabetes Status: Acute (6) Influenza B Status: Acute (7) Acute renal failure Status: Acute Plan: Restart Eliquis is cleared by consultants. Check CMP in a.m. Dialysis per nephrology. Dr. Obrien's group is covering for the weekend. I do not anticipate discharge until early next week. Gnosis is guarded secondary to his acute renal failure with heart failure and ejection fraction of 20%.
--- NOTE | 2016-08-29 08:04 | CONS ---
DATE OF CONSULTATION: DATE OF SERVICE: 08/28/2016 Reason for consultation is pseudomonas pneumonia. HISTORY OF PRESENT ILLNESS: The patient is an 81-year-old male who presented to the hospital back on 08/15/2016 with chief complaints of difficulty in breathing and also had a cough. Patient at that time has been elevated by the ER physician has been diagnosed with influenza type B. Chest x-ray was negative for any pneumonia. The patient has been treated with Tamiflu. During this admission, the patient also noticed to have acute and chronic renal failure with failure to respond to the medical therapy. Subsequently, a dialysis catheter was placed and the patient started on dialysis yesterday. On the , apparently the patient noticed to have increasing shortness of breath along with cough and congestion with concern for possible pneumonia. He did have chest x-ray done at that time, which did show cardiomegaly, new small bilateral pleural effusions and addition of bibasilar atelectasis or infiltrate noted. The patient was started on Rocephin and Levaquin. He did have sputum cultures obtained. No blood culture was done. Sputum is showing pseudomonas. Hence, I was asked to see the patient for further recommendation. At the time of my evaluation this morning, the patient's overall breathing has slightly improved. He continued to complain of cough, bringing up some sputum but denies having any chest pain. Patient denies having any nausea, vomiting, denies any abdominal pain and no diarrhea. REVIEW OF SYSTEMS: CONSTITUTIONAL: Positive for weakness, but no fever has been recorded. EYES: No complaint. ENT: No complaint. RESPIRATORY: As per HPI. CARDIOVASCULAR: No complaint. GENITOURINARY: No complaint. GASTROINTESTINAL: No complaint. MUSCULOSKELETAL: No complaint. INTEGUMENTARY: No complaint. PSYCHOLOGIC: No complaint. ENDOCRINE: No complaint. NEUROLOGICAL: No complaint. PAST MEDICAL HISTORY: Atrial fibrillation, heart failure, diabetes mellitus, hyperlipidemia, hypertension, coronary insufficiency, skin cancer. PAST SURGICAL HISTORY: Cholecystectomy, hernia repair, pacemaker placement, cataract removed and skin cancer removed from the face. SOCIAL HISTORY: No history of smoking, drinking, or drug use. Lives with his . FAMILY HISTORY: No pertinent findings were noticed. ALLERGIES: FISH OIL, IODINATED CONTRAST MEDIA, SHELLFISH and WARFARIN. Medications include the patient is currently on DuoNeb, Xanax, amiodarone, Eliquis, Lipitor, Pulmicort, Rocephin, Dobutamine, Aricept, Lasix, Robitussin, Dilaudid, Levemir, Humalog, levofloxacin, Megace, Solu-Medrol, Toprol XL, Theragran, nystatin swish and swallow, Protonix and Ultram. On examination, blood pressure is 103/50 with a pulse of 46, temperature 96.7. He is 98% on room air. General description is an elderly male, lying in bed in no distress. No tachypnea or accessory muscle of respiration use. HEENT EXAMINATION: No pallor or scleral icterus. Oral mucous membranes dry. NECK: Trachea central. There is no thyromegaly. LUNGS: Unlabored breathing. Some decreased breath sounds at the base. No wheeze. HEART: S1, S2. Regular rate and rhythm. ABDOMEN: Soft, no tenderness. EXTREMITIES: No edema of feet. SKIN EXAMINATION: No rash or masses palpable. NEUROLOGICAL: The patient is awake, alert and oriented x2. Mood and affect normal. LABS: Hemoglobin is 14.9, white cell count 14.1 with a BUN of 94, creatinine is 2.64. Chest x-ray on the , report as dictated earlier. Sputum with Pseudomonas aeruginosa. DIAGNOSTIC IMPRESSION AND PLAN: Patient with Pseudomonas aeruginosa positive sputum culture in a patient admitted to the hospital with difficulty breathing. He was diagnosed and treated for influenza B when he was noticed to have more respiratory distress on 08/23 at which time chest x-ray did show some bibasilar infiltrate and sputum was collected with a question of possible influenza pneumonia, thought the patient currently does not look toxic. He is not running any fever. Did have elevated white count though. PLAN: 1. Discontinue the Rocephin. 2. Obtain a chest x-ray PA and lateral. 3. Will add Fortaz 2 gram q.12 to cover for the pseudomonas. Continue Levaquin. 4. Will follow up on the clinical condition and cultures to further adjust the medication if needed. Thank you for this consultation. Will follow this patient along with you. CHIKI
[2016-08-29] MEDS ORDERED: DESMOPRESSIN IVPB ONE (08:47)
[2016-08-29] MEDS ORDERED: SODIUM CHLORIDE 0.9% IVPB ONE (08:47)
[2016-08-29] MEDS: FORMOTEROL FUMARATE 20 MCG/2 ML NEBU INHALATION SCH ×2 (08:50→19:04)
[2016-08-29] MEDS: IPRATROPIUM-ALBUTEROL 3 ML NEB INHALATION SCH ×4 (08:50→19:04)
[2016-08-29] MEDS: BUDESONIDE 1 MG/2 ML NEBU INHALATION SCH ×2 (08:50→19:04)
[2016-08-29] MEDS: NYSTATIN 100,000 UNIT/ML SUSP 500,000 UNIT/5 ML CUP PO SCH ×4 (08:51→20:36)
[2016-08-29] MEDS: INSULIN DETEMIR 100 UNIT/ML 10 ML VIAL SQ SCH (08:51)
[2016-08-29] MEDS: AMIODARONE 200 MG TAB PO SCH ×2 (08:52→20:35)
[2016-08-29] MEDS: MEGESTROL 400 MG/10 ML CUP PO SCH (08:52)
[2016-08-29] MEDS: METOPROLOL SUCCINATE (ER) 50 MG TAB.ER.24H PO SCH (08:52)
[2016-08-29] MEDS: MULTIVITAMINS, THERA 1 EACH TAB PO SCH (08:52)
[2016-08-29] MEDS: FUROSEMIDE 10 MG/ML 4 ML VIAL IV SCH ×2 (08:52→20:35)
[2016-08-29] MEDS: DONEPEZIL 5 MG TAB PO SCH (08:53)
[2016-08-29] MEDS: DORZOLAMIDE-TIMOLOL 2-0.5% DROPS 10 ML BTL BOTH EYES SCH ×2 (08:53→20:36)
--- NOTE | 2016-08-29 09:14 | XR ---
EXAMINATION TYPE: XR chest 1V portable DATE OF EXAM: 08/29/2016 9:06 AM HISTORY: Shortness of breath. COMPARISON: August 23, 2016 TECHNIQUE: Single view of the chest is submitted. FINDINGS: Demonstrated are scattered senescent parenchymal change. There is no evidence for focal infiltrate. The heart is enlarged. Suspect small left-sided effusion. Hilar and mediastinal structures are within normal limits. Degenerative changes are seen of the dorsal spine. IMPRESSION: 1. Chronic changes without evidence for acute pulmonary disease.
--- NOTE | 2016-08-29 10:06 | P.PN ---
Subjective Principal diagnosis: Acute exacerbation of CHF Interval history since last pulmonary progress note: The patient being reevaluated and examined today at bedside on the selective care unit. Patient states he is feeling better overall breathing has improved, he is using his oxygen time, has continued coughing with small yellow sputum production. The patient has multiple comorbidities and his prognosis is highly guarded. The patient had a dialysis cath inserted which has shown to have some leakage around it, nephrology is aware as well as the vascular surgeon, it is under discussion he might transfer to an IJ dialysis catheter, which will ultimately be up to nephrology in the vascular surgeon. He did receive dialysis yesterday and they were only able to pull off fluid volume of 250 mL. He will undergo another dialysis treatment today and the goal is to pull of another 500ml of fluid. Objective - Vital Signs Vital signs: Vital Signs Temp 97.6 F 08/29/16 08:00 Pulse 96 08/29/16 09:08 Resp 18 08/29/16 08:00 BP 112/80 08/29/16 08:00 Pulse Ox 98 08/29/16 08:00 Intake & Output 08/28/16 08/29/16 08/29/16 18:59 06:59 18:59 Intake Total 340 300 480 Output Total 150 400 100 Balance 190 -100 380 Weight 55 kg Intake: Intake, IV Titration 100 100 Amount cefTAZidime 2 gm In 100 100 Sodium Chloride 0.9% 100 ml @ 100 mls/hr IVPB Q12HR [facility] Rx#:[id number] Oral 240 200 480 Output: Urine 150 400 100 Coude 150 100 Other: Voiding Method Indwelling Catheter Indwelling Catheter Indwelling Catheter # Bowel Movements 0 - Exam GENERAL EXAM: Alert, active, comfortable in no apparent distress. HEAD: Normocephalic. EYES: Normal reaction of pupils, equal size. NOSE: Clear with pink turbinates. THROAT: No erythema or exudates. NECK: No masses, no JVD. CHEST: No chest wall deformity. LUNGS: Bilaterally diminished and coarse, some faint wheezing noted CVS: S1 and S2 normal with no audible mumurs, regular rhythm. ABDOMEN: No hepatosplenomegaly, normal bowel sounds, no guarding or rigidity. SPINE: No scoliosis or deformity SKIN: No rashes CENTRAL NERVOUS SYSTEM: No focal deficits, tone is normal in all 4 extremities. - Labs CBC & Chem 7: 08/29/16 06:25 08/29/16 06:25 Labs: Abnormal Lab Results - Last 24 Hours (Table) 08/28/16 08/28/16 08/28/16 Range/Units 11:43 16:37 20:49 WBC (3.8-10.6) k/uL Plt Count (150-450) k/uL Sodium (137-145) mmol/L Carbon Dioxide (22-30) mmol/L BUN (9-20) mg/dL Creatinine (0.66-1.25) mg/dL Glucose (74-99) mg/dL POC Glucose (mg/dL) 185 H 224 H 219 H (75-99) mg/dL Calcium (8.4-10.2) mg/dL Total Bilirubin (0.2-1.3) mg/dL Alkaline Phosphatase (38-126) U/L Total Protein (6.3-8.2) g/dL Albumin (3.5-5.0) g/dL 08/29/16 08/29/16 08/29/16 Range/Units 05:56 06:25 06:25 WBC 16.0 H (3.8-10.6) k/uL Plt Count 52 L (150-450) k/uL Sodium 134 L (137-145) mmol/L Carbon Dioxide 21 L (22-30) mmol/L BUN 70 H (9-20) mg/dL Creatinine 2.40 H (0.66-1.25) mg/dL Glucose 333 H (74-99) mg/dL POC Glucose (mg/dL) 308 H (75-99) mg/dL Calcium 7.8 L (8.4-10.2) mg/dL Total Bilirubin 1.5 H (0.2-1.3) mg/dL Alkaline Phosphatase 127 H (38-126) U/L Total Protein 5.0 L (6.3-8.2) g/dL Albumin 2.6 L (3.5-5.0) g/dL Assessment and Plan Plan: Assessment #1 acute hypoxic respiratory failure #2 acute exacerbation of CHF, with small bilateral pleural effusions #3 influenza B pneumonia #4 secondary bacterial pneumonia #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 O2 is to maintain at greater saturation of greater than 88%, continue on antibiotics. Tamiflu course is completed. Continue gentle hydration. Continue with nebulizer treatments. Continue to monitor for any worsening of the respiratory status or hydration. Nephrology is on the case, and managing dialysis. Cardiology continues to follow. We will continue with supportive care, the overall prognosis remains poor however patient is declining hospice evaluation. I performed an examination of the patient and discussed their management with the nurse practitioner. I have reviewed the nurse practitioner's note and agree with the documented findings and plan of care.
[2016-08-29 10:19] LABS: INR 1.4 (<1.1); Prothrombin Time 13.8 sec (9.0-12.0)
[2016-08-29] MEDS: DOBUTamine DRIP 500 MG in DEXTROSE/WATER 1 250ML.BAG IV SCH (11:45)
[2016-08-29 12:09] LABS: Glucose,Whole Blood 310 mg/dL (75-99)
--- NOTE | 2016-08-29 12:56 | PN ---
Patient is seen for followup for acute kidney injury, cardiorenal, currently maintained on dialysis. The patient and his family have agreed for renal replacement therapy and today he will receive his third treatment. Overall, he appears to have improved with improvement in mentation as well as appetite. Patient states he is less short of breath as well, he just had a chest x-ray and was noted to have bleeding at the right femoral Titus catheter. I believe he is scheduled for IJ PermCath placement today. On examination otherwise, the patient is awake, comfortable. He is not in any acute distress. Blood pressure 112/80, heart rate 77 per minute. He is afebrile. EXAMINATION OF THE HEART: S1 and S2. EXAMINATION OF THE LUNGS: Decreased breath sounds in bases. ABDOMEN: Soft, nontender. Examination of the lower extremities shows edema 1+ bilaterally. Chronic skin changes are noted. [employer] exam is grossly intact. Labs show sodium 134, potassium 4.5, BUN 70, serum creatinine 2.4, hemoglobin 15.3 g/dL. ASSESSMENT: 1. Acute kidney injury, cardiorenal, currently on dialysis. Patient will receive his third treatment today. He seems to have done fairly okay with stable hemodynamics during dialysis. He remains on Lasix IV and urine output for 24 hours was about 1.2 L. 2. Cardiomyopathy with ejection fraction of less than 20%. 3. Influenza type B, maintained on Tamiflu. 4. Volume overload, slowly improving. 5. Pseudomonas aeruginosa in the sputum, maintained on Fortaz. Rocephin was discontinued. Patient has been evaluated by Infectious Disease. Repeat chest x-ray was done this morning. PLAN: Hemodialysis today. Continue with the Lasix and it appears that patient will need to continue with outpatient dialysis.
[2016-08-29 16:59] LABS: Hepatitis B Surface Ag Index 0.07
[2016-08-29 17:03] LABS: Glucose,Whole Blood 141 mg/dL (75-99)
[2016-08-29] MEDS: LEVOFLOXACIN 250MG-D5W PMX 250 MG in DEXTROSE/WATER 1 50ML.BAG IVPB SCH (17:09)
--- NOTE | 2016-08-29 17:23 | PN ---
DATE OF SERVICE: 08/29/2016 REASON FOR FOLLOWUP: Pseudomonas tracheobronchitis/pneumonia. INTERVAL HISTORY: The patient is afebrile. He is breathing more comfortably. The patient denies having significant chest pain. Occasional cough. No abdominal pain or any diarrhea. On examination, blood pressure is 100/64 with a pulse of 51, temperature 96.7. He is 98% on room air. General description is an elderly male up in the chair in no distress. RESPIRATORY SYSTEM: Unlabored breathing. Some decreased breath sounds at the base. No wheeze. HEART: S1, S2. Regular rate and rhythm. ABDOMEN: Soft. No tenderness. LABS: Hemoglobin is 15.3, white count of 16 with a BUN of 70, creatinine 2.40. DIAGNOSTIC IMPRESSION AND PLAN: Patient with pseudomonas tracheobronchitis/pneumonia; however, x-ray was negative for any consolidation. Patient is currently on Fortaz, and that will be continued over the weekend. Hopefully finish therapy with oral antibiotics for a short course. Continue supportive care. was present at beside. Her questions were answered. CHIKI
[2016-08-29] MEDS ORDERED: HEPARIN SODIUM,PORCINE 5,000 UNIT/ML 1 ML VIAL ONE (18:00)
[2016-08-29 20:27] LABS: Glucose,Whole Blood 270 mg/dL (75-99)
[2016-08-29] MEDS: ATORVASTATIN 10 MG TAB PO SCH (20:35)
[2016-08-30] MEDS: methylPREDNISolone SOD SUCCI 40 MG/ML 1 ML VIAL IV SCH ×4 (00:40→17:27)
[2016-08-30 06:44] LABS: Glucose,Whole Blood 240 mg/dL (75-99)
[2016-08-30 06:48] LABS: Calcium 7.8 mg/dL (8.4-10.2); Potassium 4.5 mmol/L (3.5-5.1); Total Bilirubin 1.6 mg/dL (0.2-1.3); Total Protein 5.4 g/dL (6.3-8.2)
[2016-08-30] MEDS: INSULIN LISPRO (humaLOG) 300 UNIT/3 ML VIAL SQ SCH ×4 (06:48→21:12)
[2016-08-30 06:49] LABS: CH 29.2; CHCM 32.4; HCT 44.2 % (39.0-53.0); HDW 2.62; HGB 14.3 gm/dL (13.0-17.5); MCH 29.2 pg (25.0-35.0); MCHC 32.2 g/dL (31.0-37.0); MCV 90.6 fL (80.0-100.0); Mean Platelet Volume 9.8; RBC 4.88 m/uL (4.30-5.90); WBC 15.5 k/uL (3.8-10.6)
[2016-08-30] MEDS: PANTOPRAZOLE 40 MG TABLET PO SCH (06:49)
--- NOTE | 2016-08-30 07:31 | P.PN ---
Subjective Principal diagnosis: This is an 81-year-old male with severe chronic kidney disease and acute kidney injury. He has cardiorenal syndrome. He is dialysis dependent and last dialysis yesterday. 1.4 L were ultrafiltered with blood pressure in the 80s to 90s range. This morning is complaining of mild cough dry. No shortness of breath at rest she is off any oxygen. He is profoundly weak. Has good appetite no known nausea vomiting diarrhea abdominal pain. His urine output still is oliguric, 625 mL yesterday. Blood pressure is somewhat low in the 80s. Additionally he is dialysis catheter in his right groin has a pressure dressing with some bleeding. He was given desmopressin yesterday. He is on Lasix 40 twice a day as well as dobutamine drip. Is also on metoprolol 50 mg daily. 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 Patient has history of systolic CHF with an ejection fraction of less than 20%. He presented with dyspnea and is currently being treated for influenza pneumonia. Objective - Vital Signs Vital signs: Vital Signs Temp 97.1 F L 08/30/16 00:00 Pulse 73 08/30/16 04:00 Resp 16 08/30/16 04:00 BP 87/55 08/30/16 04:00 Pulse Ox 99 08/30/16 04:00 Intake & Output 08/29/16 08/30/16 08/30/16 18:59 06:59 18:59 Intake Total 1281.858 400 Output Total 325 300 Balance 956.858 100 Weight 55 kg 58 kg Intake: Intake, IV Titration 261.858 Amount DOBUTamine DRIP 500 mg In 111.858 Dextrose/Water 1 250ml. bag @ 2.5 MCG/KG/MIN 4.12 mls/hr IV .Q24H [facility] Rx#: [id number] Desmopressin Inj 16 mcg 50 In Sodium Chloride 0.9% 50 ml @ 200 mls/hr IVPB ONCE ONE Rx#:[id number] cefTAZidime 2 gm In 100 Sodium Chloride 0.9% 100 ml @ 100 mls/hr IVPB Q12HR [facility] Rx#:[id number] Oral 1020 400 Output: Urine 325 300 Coude 325 Other: Voiding Method Indwelling Catheter Indwelling Catheter Examination is awake alert oriented comfortable and supine in bed. A chin exam no JVP neck is supple no facial asymmetry Lungs are significant for bilateral fine crackles. No dullness to percussion. His chest x-ray shows no sign of congestion and seemingly normal though. Heart sounds are unremarkable for any murmur rub gallop Atrial fibrillation noted Abdomen soft nontender Extremity exam reveals mild edema Neurologically awake alert oriented but generalized fatigue is able to sit up with minimal help though. - Labs CBC & Chem 7: 08/30/16 06:17 08/30/16 06:17 Labs: Abnormal Lab Results - Last 24 Hours (Table) 08/29/16 08/29/16 08/29/16 Range/Units 06:25 11:58 16:42 WBC (3.8-10.6) k/uL Plt Count (150-450) k/uL PT 13.8 H (9.0-12.0) sec Sodium (137-145) mmol/L BUN (9-20) mg/dL Creatinine (0.66-1.25) mg/dL Glucose (74-99) mg/dL POC Glucose (mg/dL) 310 H 141 H (75-99) mg/dL Calcium (8.4-10.2) mg/dL Total Bilirubin (0.2-1.3) mg/dL Total Protein (6.3-8.2) g/dL Albumin (3.5-5.0) g/dL 08/29/16 08/30/16 08/30/16 Range/Units 20:26 06:17 06:17 WBC 15.5 H (3.8-10.6) k/uL Plt Count 34 L* (150-450) k/uL PT (9.0-12.0) sec Sodium 136 L (137-145) mmol/L BUN 62 H (9-20) mg/dL Creatinine 2.43 H (0.66-1.25) mg/dL Glucose 288 H (74-99) mg/dL POC Glucose (mg/dL) 270 H (75-99) mg/dL Calcium 7.8 L (8.4-10.2) mg/dL Total Bilirubin 1.6 H (0.2-1.3) mg/dL Total Protein 5.4 L (6.3-8.2) g/dL Albumin 2.8 L (3.5-5.0) g/dL 08/30/16 Range/Units 06:42 WBC (3.8-10.6) k/uL Plt Count (150-450) k/uL PT (9.0-12.0) sec Sodium (137-145) mmol/L BUN (9-20) mg/dL Creatinine (0.66-1.25) mg/dL Glucose (74-99) mg/dL POC Glucose (mg/dL) 240 H (75-99) mg/dL Calcium (8.4-10.2) mg/dL Total Bilirubin (0.2-1.3) mg/dL Total Protein (6.3-8.2) g/dL Albumin (3.5-5.0) g/dL Assessment and Plan Plan: Impression 1. Cardiorenal syndrome with worsening acute kidney injury, on dobutamine for the last approximately 1 week without any significant benefit, currently on dialysis last dialysis yesterday 08/29/2016 with 1.4 L ultrafiltrate her with blood pressure in the 80s. Currently euvolemic by chest x-ray although exam showed some fine crackles bilaterally. His urine output is oliguric range in 625 mL 2. Chronic kidney disease with a baseline creatinine of about 1.6 at its best over the last 2 years. Etiology is nephrosclerosis. Trace proteinuria on 08/18 urine analysis with benign sediment 3. Influenza improved 4. Cardiorenal syndrome. Ejection from 20% Recommendation. Discontinuing dobutamine. He will need a permacath and other options such as peritoneal dialysis discussed. Watch the hematoma in his groin from the Titus catheter. Hemoglobin 14.3 as of this morning. Watch blood pressure maintain the Lasix
[2016-08-30] MEDS: IPRATROPIUM-ALBUTEROL 3 ML NEB INHALATION SCH ×4 (09:35→19:51)
[2016-08-30] MEDS: FORMOTEROL FUMARATE 20 MCG/2 ML NEBU INHALATION SCH ×2 (09:38→19:51)
[2016-08-30] MEDS: BUDESONIDE 1 MG/2 ML NEBU INHALATION SCH ×2 (09:39→19:51)
[2016-08-30] MEDS: METOPROLOL SUCCINATE (ER) 50 MG TAB.ER.24H PO SCH (10:00)
[2016-08-30] MEDS: NYSTATIN 100,000 UNIT/ML SUSP 500,000 UNIT/5 ML CUP PO SCH ×3 (10:00→17:27)
[2016-08-30] MEDS: MEGESTROL 400 MG/10 ML CUP PO SCH (10:00)
[2016-08-30] MEDS: MULTIVITAMINS, THERA 1 EACH TAB PO SCH (10:01)
[2016-08-30] MEDS: DORZOLAMIDE-TIMOLOL 2-0.5% DROPS 10 ML BTL BOTH EYES SCH ×2 (10:01→21:10)
[2016-08-30] MEDS: DONEPEZIL 5 MG TAB PO SCH (10:01)
[2016-08-30] MEDS: AMIODARONE 200 MG TAB PO SCH ×2 (10:01→21:10)
[2016-08-30] MEDS: INSULIN DETEMIR 100 UNIT/ML 10 ML VIAL SQ SCH (10:01)
[2016-08-30] MEDS: FUROSEMIDE 10 MG/ML 4 ML VIAL IV SCH ×2 (10:02→21:10)
[2016-08-30 12:09] LABS: Glucose,Whole Blood 308 mg/dL (75-99)
[2016-08-30 16:42] LABS: Glucose,Whole Blood 234 mg/dL (75-99)
[2016-08-30] MEDS: DOBUTamine DRIP 500 MG in DEXTROSE/WATER 1 250ML.BAG IV SCH (17:07)
--- NOTE | 2016-08-30 19:14 | PN ---
SUBJECTIVE DATA/INTERVAL HISTORY: This is an 81-year-old gentleman that is seen in cross coverage for Dr. Jose Farah. The patient is admitted to the hospital with difficulty in breathing, which is likely secondary to cardiorenal syndrome. Patient also has a history of chronic kidney disease with an acute component. Patient was started on hemodialysis, underwent HD on 08/29/2016. Today the patient states that his breathing is significantly improved currently on room air. Denies having any abdominal pain, nausea, vomiting. The patient does seem to have some urine output, however, recorded as 625 mL over the last 24 hours. Patient has been noted to have some bleeding around his femoral dialysis catheter. Patient was given desmopressin. Also patient was also diagnosed with influenza pneumonia initially. Thereafter patient was noted to have tracheobronchitis with Pseudomonas and currently maintained on Fortaz. OBJECTIVE DATA: VITALS: Temperature 97.1, heart rate 70, respiratory rate 16, blood pressure is 87/55 and saturating 99% on room air. GENERAL APPEARANCE: Alert, oriented x3 in no distress. NECK: Supple. No JVD. LUNGS: Good air movement, trace crackles at the bases. No rhonchi or wheezing noted. HEART: Regular rate and rhythm. No murmurs appreciated. NEUROLOGICAL: Moves all 4 extremities. Cranial nerves II through XII grossly intact. No focal deficit appreciated. LOWER EXTREMITIES: 2+ pitting edema noted. ABDOMEN: Soft, nontender, no organomegaly. Right groin there is some oozing with tenderness around the insertion site. Laboratory data include hemoglobin 14.3, hematocrit 44.2, white count is 15.5, platelets of 34, sodium 136, potassium 4.5, chloride 102, bicarb 23. BUN 62, creatinine of 2.43. ASSESSMENT AND PLAN: 1. Acute exacerbation of systolic heart failure, likely resulting in a cardiorenal syndrome. 2. Thrombocytopenia likely drug-induced at this time. 3. Chronic kidney disease, likely stage III. 4. Essential hypertension. 5. Influenza B pneumonitis. 6. Tracheobronchitis with Pseudomonas. 7. Acute kidney injury, likely secondary to #1. 8. Dementia. PLAN: Will discontinue Fortaz and dobutamine at this time. Will continue at Lasix at this time. Patient has been on dobutamine for 7 days. I do suspect some drug-induced thrombocytopenia. Hence, cephalosporin will be discontinued and Dobutamine as well will be discontinued. Will monitor repeat labs in a.m. If patient continues to ooze around the site or if there is further platelet count thereafter, we will infuse patient with one bag of platelets. There also may be some benefit of consulting franchise field consultant at that time. We will decrease the steroids to 30 mg q.12 hours, leukocytosis, likely reactive to that. The patient is asymptomatic in regards to the tracheobronchitis. Hence, we will hold off on antibiotic therapy and will continue Levaquin at this time. Will follow the patient during the weekend.
--- NOTE | 2016-08-30 20:43 | PN ---
Mr. Qureshi is seen, evaluated, examined in follow-up. He is clinically doing better. He is more awake and alert. He is tolerating p.o. well. Patient currently has been on hemodialysis, which ( ) . His hemodynamic status is stable. Care plan discussed with patient present at bedside at length. Blood pressure 110/50, respiratory rate 18, pulse 71, temperature 98, saturation 98% on room air. HEENT EXAMINATION: Otherwise unremarkable. Oral mucosa is slightly on the [place]. NECK: Supple. Neck veins are prominent. LUNGS: Bilateral good air entry. A few crackles at bases. HEART: Regular rate and rhythm. ABDOMEN: Soft. NEUROLOGICAL EXAMINATION: Otherwise, awake and alert. Chest x-ray performed on 08/29/2016 revealed cardiomegaly, interstitial edema and small pleural effusion on the left side, very minimal he cannot be excluded. Sputum is positive for influenza as well as now Pseudomonas for which antibiotics has been adjusted. The patient is on Fortaz. Infectious disease service has been adjusting the antibiotics. Blood pressure is 104/57. IMPRESSION: 1. Gram-negative pneumonia, likely secondary with influenza pneumonia. 2. Severe degree of cardiomyopathy, chronic systolic heart failure. 3. Acute renal failure on hemodialysis likely related to multifactorial process including cardiomyopathy and poor output status. 4. Other issues include leukocytosis and severe thrombocytopenia. We will monitor and observe closely. 5. Chronic atrial fibrillation. The patient is on Eliquis as well. Monitor platelet ( ). 6. Other issues thrombocytopenia as dictated above. Plan is to continue antibiotics, supportive care. Increase activity as tolerated. Continue hemodialysis. Prognosis overall remains poor. Will monitor closely.
[2016-08-30] MEDS: ATORVASTATIN 10 MG TAB PO SCH (21:10)
[2016-08-30 21:12] LABS: Glucose,Whole Blood 270 mg/dL (75-99)
[2016-08-31] MEDS: NYSTATIN 100,000 UNIT/ML SUSP 500,000 UNIT/5 ML CUP PO SCH ×5 (00:06→21:33)
[2016-08-31 06:39] LABS: Glucose,Whole Blood 375 mg/dL (75-99)
[2016-08-31 06:39] LABS: Basophils % (A) 0 %; CH 29.5; CHCM 32.8; Eosinophils % (A) 0 %; HDW 2.67; HGB 14.6 gm/dL (13.0-17.5); Luc # (Auto) 0.06; Luc % (Auto) 0; Lymphocytes # (A) 0.3 k/uL (1.0-4.8); Lymphocytes % (A) 1 %; MCH 28.7 pg (25.0-35.0); MCHC 31.7 g/dL (31.0-37.0); MCV 90.5 fL (80.0-100.0); Mean Platelet Volume 10.8; Monocytes # (A) 0.5 k/uL (0-1.0); Monocytes % (A) 3 %; Neutrophils # (A) 17.8 k/uL (1.3-7.7); Neutrophils % (A) 96 %; RBC 5.09 m/uL (4.30-5.90); WBC 18.7 k/uL (3.8-10.6); WBC (Perox) 19.72
[2016-08-31 06:41] LABS: Glucose,Whole Blood 340 mg/dL (75-99)
[2016-08-31] MEDS: INSULIN LISPRO (humaLOG) 300 UNIT/3 ML VIAL SQ SCH ×4 (06:41→21:34)
[2016-08-31] MEDS: PANTOPRAZOLE 40 MG TABLET PO SCH (06:41)
[2016-08-31 06:49] LABS: Calcium 7.9 mg/dL (8.4-10.2); Potassium 4.9 mmol/L (3.5-5.1); Total Bilirubin 1.8 mg/dL (0.2-1.3); Total Protein 5.5 g/dL (6.3-8.2)
[2016-08-31 06:53] LABS: INR 1.4 (<1.1); Partial Thromboplastin Time 23.5 sec (22.0-30.0)
[2016-08-31] MEDS: AMIODARONE 200 MG TAB PO SCH ×2 (08:13→21:34)
[2016-08-31] MEDS: DONEPEZIL 5 MG TAB PO SCH (08:13)
[2016-08-31] MEDS: MEGESTROL 400 MG/10 ML CUP PO SCH (08:13)
[2016-08-31] MEDS: METOPROLOL SUCCINATE (ER) 50 MG TAB.ER.24H PO SCH (08:13)
[2016-08-31] MEDS: MULTIVITAMINS, THERA 1 EACH TAB PO SCH (08:14)
[2016-08-31 08:19] LABS: Large Platelets Present
[2016-08-31] MEDS: INSULIN DETEMIR 100 UNIT/ML 10 ML VIAL SQ SCH (08:19)
[2016-08-31] MEDS: FUROSEMIDE 10 MG/ML 4 ML VIAL IV SCH ×2 (08:19→21:34)
[2016-08-31] MEDS: DORZOLAMIDE-TIMOLOL 2-0.5% DROPS 10 ML BTL BOTH EYES SCH ×2 (08:20→21:34)
[2016-08-31 08:21] LABS: Polychromasia Present
[2016-08-31] MEDS: IPRATROPIUM-ALBUTEROL 3 ML NEB INHALATION SCH ×4 (08:33→19:05)
[2016-08-31] MEDS: FORMOTEROL FUMARATE 20 MCG/2 ML NEBU INHALATION SCH ×2 (08:33→19:05)
[2016-08-31] MEDS: BUDESONIDE 1 MG/2 ML NEBU INHALATION SCH ×2 (08:33→19:05)
[2016-08-31] MEDS ORDERED: methylPREDNISolone SOD SUCCI 40 MG/ML 1 ML VIAL IV SCH (09:00)
--- NOTE | 2016-08-31 10:49 | P.PN ---
Subjective Principal diagnosis: This is an 81-year-old male with severe chronic kidney disease and acute kidney injury. He has cardiorenal syndrome. He is dialysis dependent and last dialysis was day before yesterday. 1.4 L were ultrafiltered with blood pressure in the 80s to 90s range. This morning is feeling better but has a mild cough and denies any shortness of breath at rest she is off any oxygen. He is profoundly weak. Has good appetite no known nausea vomiting diarrhea abdominal pain. His urine output still is oliguric, 625 mL yesterday. Blood pressure is somewhat low in the 80s. Additionally he is dialysis catheter in his right groin has a pressure dressing with some bleeding. He was given desmopressin day beforeyesterday. He is on Lasix 40 twice a day . Is also on metoprolol 50 mg daily. 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 Patient has history of systolic CHF with an ejection fraction of less than 20%. He presented with dyspnea and is currently being treated for influenza pneumonia. Objective - Vital Signs Vital signs: Vital Signs Temp 96.7 F L 08/31/16 08:00 Pulse 66 08/31/16 08:00 Resp 18 08/31/16 08:00 BP 110/74 08/31/16 08:00 Pulse Ox 98 08/31/16 08:00 Intake & Output 08/30/16 08/31/16 08/31/16 18:59 06:59 18:59 Intake Total 1230.991 240 480 Output Total 615 350 100 Balance 615.991 -110 380 Weight 50.5 kg Intake: IV 50 240 .9 @ 10 50 240 Intake, IV Titration 220.991 Amount DOBUTamine DRIP 500 mg In 120.991 Dextrose/Water 1 250ml. bag @ 2.5 MCG/KG/MIN 4.12 mls/hr IV .Q24H [facility] Rx#: [id number] cefTAZidime 2 gm In 100 Sodium Chloride 0.9% 100 ml @ 100 mls/hr IVPB Q24HR [facility] Rx#:[id number] Oral 960 480 Output: Urine 615 350 100 Coude 415 350 100 Other: Voiding Method Indwelling Catheter Indwelling Catheter Indwelling Catheter # Bowel Movements 1 On examination is awake alert oriented but profoundly weak. He was able to sit up with some help. HEENT exam no JVP neck is supple no facial asymmetry Lungs are significant for bilateral fine crackles no dullness to percussion fair air entry bilaterally. His chest x-ray does fairly clear on 08/29/2016 Heart sounds are unremarkable for any murmur rub gallop Abdomen soft nontender Extremity exam was mild edema 1-2+. Neurologically awake alert oriented. No asterixis. - Labs CBC & Chem 7: 08/31/16 06:22 08/31/16 06:22 Labs: Abnormal Lab Results - Last 24 Hours (Table) 08/30/16 08/30/16 08/30/16 Range/Units 11:55 16:39 21:11 WBC (3.8-10.6) k/uL Plt Count (150-450) k/uL Neutrophils # (1.3-7.7) k/uL Lymphocytes # (1.0-4.8) k/uL PT (9.0-12.0) sec Sodium (137-145) mmol/L BUN (9-20) mg/dL Creatinine (0.66-1.25) mg/dL Glucose (74-99) mg/dL POC Glucose (mg/dL) 308 H 234 H 270 H (75-99) mg/dL Calcium (8.4-10.2) mg/dL Total Bilirubin (0.2-1.3) mg/dL Total Protein (6.3-8.2) g/dL Albumin (3.5-5.0) g/dL 08/31/16 08/31/16 08/31/16 Range/Units 06:22 06:22 06:22 WBC 18.7 H (3.8-10.6) k/uL Plt Count 40 L* (150-450) k/uL Neutrophils # 17.8 H (1.3-7.7) k/uL Lymphocytes # 0.3 L (1.0-4.8) k/uL PT 14.0 H (9.0-12.0) sec Sodium 134 L (137-145) mmol/L BUN 80 H* (9-20) mg/dL Creatinine 2.95 H (0.66-1.25) mg/dL Glucose 345 H (74-99) mg/dL POC Glucose (mg/dL) (75-99) mg/dL Calcium 7.9 L (8.4-10.2) mg/dL Total Bilirubin 1.8 H (0.2-1.3) mg/dL Total Protein 5.5 L (6.3-8.2) g/dL Albumin 2.9 L (3.5-5.0) g/dL 08/31/16 08/31/16 Range/Units 06:37 06:39 WBC (3.8-10.6) k/uL Plt Count (150-450) k/uL Neutrophils # (1.3-7.7) k/uL Lymphocytes # (1.0-4.8) k/uL PT (9.0-12.0) sec Sodium (137-145) mmol/L BUN (9-20) mg/dL Creatinine (0.66-1.25) mg/dL Glucose (74-99) mg/dL POC Glucose (mg/dL) 375 H 340 H (75-99) mg/dL Calcium (8.4-10.2) mg/dL Total Bilirubin (0.2-1.3) mg/dL Total Protein (6.3-8.2) g/dL Albumin (3.5-5.0) g/dL Assessment and Plan Plan: Impression 1. Cardiorenal syndrome with worsening acute kidney injury, on hemodialysis. Last dialysis was 08/29/2016 with 1.4 L taken off with pressures in the 80s to 90s. This morning his urine output is about 900 mL improved. Mild edema remains. Lungs are somewhat breath. Off of dobutamine. 2. Chronic kidney disease with a baseline creatinine of about 1.6 at its best over the last 2 years. Etiology is nephrosclerosis. Trace proteinuria on 08/18 urine analysis with benign sediment 3. Influenza improved 4. Cardiorenal syndrome. Ejection from 20% Recommendation. Will be dialyzed tomorrow. We'll take off 2.5 L. Expecting and hoping for recovery of renal function with urine output picking up. He will need a permacath and other options such as peritoneal dialysis discussed. Watch the hematoma in his groin from the Titus catheter. Hemoglobin 14.6 as of this morning. Watch blood pressure maintain the Lasix
[2016-08-31 12:07] LABS: Glucose,Whole Blood 300 mg/dL (75-99)
[2016-08-31 16:57] LABS: Glucose,Whole Blood 388 mg/dL (75-99)
[2016-08-31] MEDS: LEVOFLOXACIN 250 MG TAB PO SCH (17:04)
--- NOTE | 2016-08-31 17:05 | PN ---
The patient is an 81-year-old male, seen, evaluated, examined. Came into hospital with influenza pneumonia. The patient also has been found to have pseudomonas pneumonia and severe degree of cardiomyopathy with ejection fraction 10 to 15%, developed renal failure and has been hemodialysis. Patient clinically has slightly improved now tolerating p.o. well. Breathing relatively more comfortably. Hemodynamic status is marginal, but stable. Last set of vital signs include blood pressure 110/74, respiratory rate 18, pulse 60, temperature 97, saturation 99%. HEENT: Unremarkable. NECK: Supple. LUNGS: Good air entry bilaterally. HEART: Regular rate and rhythm. ABDOMEN: Soft. No rebound or rigidity. EXTREMITIES: +1 peripheral pulses. NEUROLOGICAL EXAMINATION: Otherwise, awake and alert. Labs reviewed. Medications reviewed. Platelet count 40,000, white cell count 18,000, hemoglobin and hematocrit 14 and 46. PT, INR and within normal limits. BUN is 80, creatinine 2.25. heparin antibody results are pending. IMPRESSION: 1. Acute renal failure on chronic renal failure related to cardiomyopathy. Renal services. 2. Influenza B pneumonia. 3. Cardiomyopathy with ejection fraction of 10 to 15% with chronic systolic heart failure. PLAN: As above. Continue supportive care. Follow clinical course closely. Further recommendations pending. Plan of care as per clinical response of the patient. Thrombocytopenia, will avoid heparin, awaiting antibody results. Will follow.
--- NOTE | 2016-08-31 17:46 | PN ---
SUBJECTIVE DATA AND INTERVAL HISTORY: This is an 81-year-old gentleman who was initially admitted to the hospital with difficulty breathing. Patient was noted to be in cardiorenal syndrome. Patient was on dobutamine therapy with diuretics. Thereafter was started on dialysis for fluid overloaded state in setting up for acute kidney injury secondary to cardiorenal syndrome. Patient was noted to have thrombocytopenia. Patient's cephalosporin was initiated for Pseudomonas tracheobronchitis, was discontinued and dobutamine was discontinued yesterday. Today, patient states to be doing well. Denies any cough or difficulty breathing. Denies chest pain, abdominal pain. Patient does not notice any bleeding around the dialysis catheter ( ). No other overnight events were reported by the staff. OBJECTIVE DATA: Temperature 97, heart rate is 60, respiratory rate 18, blood pressure 105/86, saturating 99% on 2 liters supplemental oxygen. GENERAL APPEARANCE: Alert, oriented x3 in no distress. HEAD: Atraumatic, normocephalic. Pupils equal, round, and react to light and accommodation. Extraocular movements intact. Neck is supple. No JVD. LUNGS: Good air movement, trace crackles at the bases. No rhonchi or wheezing appreciated. ABDOMEN: Soft, nontender, no organomegaly. Bowel sounds are intact. HEART: S1, S2 heard. Irregular intermittently. No murmurs appreciated. LOWER EXTREMITIES: 1+ pitting edema noted. Catheter in the right groin into the femoral vein is noted. No bleeding around the catheter insertion site. NEURO: No focal motor or sensory deficits noted. LABORATORY DATA: White count is 18.7, hemoglobin 14.6, hematocrit 46, platelets 40. Sodium 134, potassium 4,9, chloride 100, bicarb 22, BUN 80, creatinine of 2.95. ASSESSMENT AND PLAN: 1. Acute kidney injury secondary to cardiac renal syndrome. 2. Acute decompensated systolic heart failure. 3. Atrial fibrillation. 4. Recent tracheobronchitis. 5. Acute hypoxic respiratory failure secondary to above that is improved. 6. Thrush. 7. Influenza B pneumonitis. 8. Dementia. 9. Thrombocytopenia likely drug-induced as patient's platelets have been improved after cessation of Cortef. PLAN: Continue off medications, continue off Fortaz. Patient is asymptomatic. Will repeat a chest x-ray and laboratory values in the a.m. If patient's platelets are not improved, will likely benefit from a hematology consultation. Glucose levels were slightly elevated. Will make appropriate changes to the insulin therapy. Patient will be seen by Dr. Jose Farah tomorrow.
[2016-08-31 21:14] LABS: Glucose,Whole Blood 253 mg/dL (75-99)
[2016-08-31] MEDS: methylPREDNISolone SOD SUCCI 40 MG/ML 1 ML VIAL IV SCH (21:33)
[2016-08-31] MEDS: ATORVASTATIN 10 MG TAB PO SCH (21:34)
[2016-09-01 06:35] LABS: Glucose,Whole Blood 235 mg/dL (75-99)
[2016-09-01 06:38] LABS: INR 1.3 (<1.1); Prothrombin Time 12.9 sec (9.0-12.0)
[2016-09-01] MEDS: PANTOPRAZOLE 40 MG TABLET PO SCH (06:46)
[2016-09-01] MEDS: INSULIN LISPRO (humaLOG) 300 UNIT/3 ML VIAL SQ SCH ×4 (06:46→21:16)
--- NOTE | 2016-09-01 07:30 | XR ---
EXAMINATION TYPE: XR chest 1V portable DATE OF EXAM: 09/01/2016 7:21 AM COMPARISON: 08/29/2016 HISTORY: Difficulty breathing TECHNIQUE: Single frontal view of the chest is obtained. FINDINGS: The heart is enlarged and there is a cardiac device. Arthropathy of the shoulders seen wit h left lower lobe infiltrate and small effusion. No overt failure or pneumothorax. IMPRESSION: 1. Left lower lobe infiltrate and small effusion.
--- NOTE | 2016-09-01 07:58 | P.PN ---
Subjective Principal diagnosis: Acute on chronic renal failure with influenza B This continue [id number] white male essentially admitted for pneumonia found have influenza. The patient has cardiorenal syndrome and is now been started on dialysis. Appreciate input from nephrology. He is due for dialysis today. His scrotal edema is improving. His appetite is nominal. Objective - Vital Signs Vital signs: Vital Signs Temp 97.5 F L 09/01/16 04:00 Pulse 73 09/01/16 04:00 Resp 18 09/01/16 04:00 BP 100/63 09/01/16 04:00 Pulse Ox 99 09/01/16 04:00 Intake & Output 08/31/16 09/01/16 09/01/16 18:59 06:59 18:59 Intake Total 1220 100 Output Total 300 575 Balance 920 -475 Weight 60 kg Intake: IV 80 100 .9 @ 10 80 100 Oral 1140 Output: Urine 300 575 Coude 300 Other: Voiding Method Indwelling Catheter Indwelling Catheter # Bowel Movements 1 - Constitutional General appearance: Present: thin - EENT Eyes: Absent: abnormal pupil - Respiratory Respiratory: bilateral: CTA - Cardiovascular Heart sounds: normal: S1, S2 - Gastrointestinal General gastrointestinal: Present: soft. Absent: tenderness - Genitourinary Male genitourinary: scrotal edema - Musculoskeletal Musculoskeletal: Present: generalized weakness - Labs CBC & Chem 7: 08/31/16 06:22 08/31/16 06:22 Labs: Abnormal Lab Results - Last 24 Hours (Table) 08/31/16 08/31/16 08/31/16 Range/Units 06:22 11:47 16:46 WBC 18.7 H (3.8-10.6) k/uL Plt Count 40 L* (150-450) k/uL Neutrophils # 17.8 H (1.3-7.7) k/uL Lymphocytes # 0.3 L (1.0-4.8) k/uL PT (9.0-12.0) sec POC Glucose (mg/dL) 300 H 388 H (75-99) mg/dL 08/31/16 09/01/16 09/01/16 Range/Units 21:03 05:59 06:18 WBC (3.8-10.6) k/uL Plt Count (150-450) k/uL Neutrophils # (1.3-7.7) k/uL Lymphocytes # (1.0-4.8) k/uL PT 12.9 H (9.0-12.0) sec POC Glucose (mg/dL) 253 H 235 H (75-99) mg/dL Assessment and Plan (1) Afib Status: Acute (2) Bronchospasm with bronchitis, acute Status: Acute (3) Dyspnea Status: Acute (4) AICD (automatic cardioverter/defibrillator) present Status: Acute (5) Diabetes Status: Acute (6) Influenza B Status: Acute (7) Acute renal failure Status: Acute Plan: Continue current regimen of treatment for nephrology. We'll follow electrolytes closely. Discharge planning for ECF versus home care. Possibly start physical therapy. Time with Patient: Less than 30
[2016-09-01] MEDS: NYSTATIN 100,000 UNIT/ML SUSP 500,000 UNIT/5 ML CUP PO SCH ×4 (08:56→21:17)
[2016-09-01] MEDS: INSULIN DETEMIR 100 UNIT/ML 10 ML VIAL SQ SCH (08:56)
[2016-09-01] MEDS: DONEPEZIL 5 MG TAB PO SCH (08:56)
[2016-09-01] MEDS: METOPROLOL SUCCINATE (ER) 50 MG TAB.ER.24H PO SCH (08:57)
[2016-09-01] MEDS: methylPREDNISolone SOD SUCCI 40 MG/ML 1 ML VIAL IV SCH ×2 (08:57→21:16)
[2016-09-01] MEDS: FUROSEMIDE 10 MG/ML 4 ML VIAL IV SCH ×2 (08:57→21:16)
[2016-09-01] MEDS: AMIODARONE 200 MG TAB PO SCH ×2 (08:58→21:16)
[2016-09-01] MEDS: MULTIVITAMINS, THERA 1 EACH TAB PO SCH (08:58)
[2016-09-01] MEDS: MEGESTROL 400 MG/10 ML CUP PO SCH ×2 (08:58→10:27)
[2016-09-01] MEDS: DORZOLAMIDE-TIMOLOL 2-0.5% DROPS 10 ML BTL BOTH EYES SCH ×2 (09:00→21:16)
[2016-09-01] MEDS: BUDESONIDE 1 MG/2 ML NEBU INHALATION SCH ×2 (09:27→20:05)
[2016-09-01] MEDS: IPRATROPIUM-ALBUTEROL 3 ML NEB INHALATION SCH ×4 (09:27→20:05)
[2016-09-01] MEDS: FORMOTEROL FUMARATE 20 MCG/2 ML NEBU INHALATION SCH ×2 (09:28→20:05)
[2016-09-01 09:45] LABS: Calcium 8.1 mg/dL (8.4-10.2); Phosphorous 3.2 mg/dL (2.5-4.5); Potassium 4.5 mmol/L (3.5-5.1)
--- NOTE | 2016-09-01 09:56 | P.PN ---
Subjective Patient is seen in follow-up for acute kidney injury. He's currently dialysis dependent due to cardiorenal syndrome and fluid overload. His last hemodialysis was on Thursday. He does have systolic CHF with ejection fraction less than 20%. Currently resting in bed. Dyspnea is improving. Urine output about 1900 mL over the last 24 hours. Denies any active chest pain. No vomiting or diarrhea. Vital signs are stable. General: The patient appeared well nourished and normally developed. HEENT: Head exam is unremarkable. Neck is without jugular venous distension. LUNGS: Lungs are clear to auscultation and percussion. Breath sounds decreased. HEART: Rate and Rhythm are regular. First and second heart sounds normal. No murmurs, rubs or gallops. ABDOMEN: Abdominal exam reveals normal bowel sounds. Non-tender and non- distended. No evidence of peritonitis. EXTREMITITES: 2+ edema. Objective - Vital Signs Vital signs: Vital Signs Temp 97.5 F L 09/01/16 04:00 Pulse 64 09/01/16 09:44 Resp 18 09/01/16 04:00 BP 100/63 09/01/16 04:00 Pulse Ox 99 09/01/16 09:25 Intake & Output 08/31/16 09/01/16 09/01/16 18:59 06:59 18:59 Intake Total 1220 100 Output Total 300 575 Balance 920 -475 Weight 60 kg Intake: IV 80 100 .9 @ 10 80 100 Oral 1140 Output: Urine 300 575 Coude 300 Other: Voiding Method Indwelling Catheter Indwelling Catheter # Bowel Movements 1 - Labs CBC & Chem 7: 08/31/16 06:22 09/01/16 05:59 Labs: Abnormal Lab Results - Last 24 Hours (Table) 08/31/16 08/31/16 08/31/16 Range/Units 11:47 16:46 21:03 PT (9.0-12.0) sec Sodium (137-145) mmol/L Carbon Dioxide (22-30) mmol/L BUN (9-20) mg/dL Creatinine (0.66-1.25) mg/dL Glucose (74-99) mg/dL POC Glucose (mg/dL) 300 H 388 H 253 H (75-99) mg/dL Calcium (8.4-10.2) mg/dL 02/09/01/16 09/01/16 Range/Units 05:59 05:59 06:18 PT 12.9 H (9.0-12.0) sec Sodium 134 L (137-145) mmol/L Carbon Dioxide 20 L (22-30) mmol/L BUN 92 H* (9-20) mg/dL Creatinine 3.25 H (0.66-1.25) mg/dL Glucose 240 H (74-99) mg/dL POC Glucose (mg/dL) 235 H (75-99) mg/dL Calcium 8.1 L (8.4-10.2) mg/dL Assessment and Plan Plan: Assessment: #1. Nonoliguric acute kidney injury secondary to cardiorenal syndrome. Currently hemodialysis dependent. #2. Chronic kidney disease stage III with baseline creatinine near 1.6 secondary to nephrosclerosis and cardiorenal syndrome. Urinalysis is quite benign. #3. Influenza pneumonia. sputum culture also positive for Pseudomonas. #4. Systolic CHF with ejection fraction of less than 20%. Compensated. No evidence of gross fluid overload on chest x-ray. #5. Hypervolemic hyponatremia. Stable. #6. Metabolic acidosis secondary to acute kidney injury. Plan: Hemodialysis today with goal 2-1/2 L ultrafiltration as blood pressure tolerates. Expect improvement in metabolic acidosis post dialysis. Vascular surgery following. Scheduled for permacath placement today. Check phosphorus level. Continue to monitor urine output closely. Maintain Lasix.
[2016-09-01 10:00] LABS: CH 29.8; HCT 43.7 % (39.0-53.0); HDW 2.61; HGB 14.4 gm/dL (13.0-17.5); MCH 29.9 pg (25.0-35.0); MCHC 32.8 g/dL (31.0-37.0); Mean Platelet Volume 11.4; RDW 14.9 % (11.5-15.5)
[2016-09-01 10:19] LABS: WBC 25.5 k/uL (3.8-10.6)
[2016-09-01 10:26] LABS: Total Bilirubin 1.6 mg/dL (0.2-1.3); Total Protein 5.2 g/dL (6.3-8.2)
--- NOTE | 2016-09-01 10:32 | PN ---
DATE OF SERVICE: 08/31/2016 REASON FOR FOLLOW-UP: Pseudomonas, tracheobronchitis INTERVAL HISTORY: The patient is afebrile. He has been breathing more comfortably. No significant chest pain. Cough has decreased in intensity. No abdominal pain or diarrhea. On examination, blood pressure 115/75, pulse 63, temperature 96.8, he is 98% on 2 liters nasal cannula. GENERAL DESCRIPTION: An elderly male lying in bed in no distress. RESPIRATORY SYSTEM: Unlabored breathing. Clear to auscultation anteriorly. HEART: S1, S2. Regular rate and rhythm. ABDOMEN: Soft, no tenderness. Hemoglobin is 14.6, white count 15.7 with a BUN of 80, creatinine 2.95. DIAGNOSTIC IMPRESSION: Patient with positive culture for pseudomonas aeruginosa with question of possible tracheobronchitis vs. mild pneumonia, responding to antibiotic therapy. Switch to p.o. for about a week with close follow up. Continue supportive care. MTDD
--- NOTE | 2016-09-01 10:56 | P.PN ---
Subjective Principal diagnosis: Acute exacerbation of CHF Interval history since last pulmonary progress note: The patient being reevaluated and examined today at bedside on the selective care unit. Patient states he is feeling better overall breathing has improved, he is using his oxygen time, has continued coughing with small yellow sputum production. Patient was found to have influenza B pneumonia, as well as Pseudomonas pneumonia. The patient continues with dialysis, nephrology consulted. The patient's ejection fraction is 10-15%. The patient has multiple comorbidities and his prognosis is highly guarded. Objective - Vital Signs Vital signs: Vital Signs Temp 97.0 F L 09/01/16 08:00 Pulse 64 09/01/16 09:44 Resp 18 09/01/16 08:00 BP 102/54 09/01/16 08:00 Pulse Ox 99 09/01/16 09:25 Intake & Output 08/31/16 09/01/16 09/01/16 18:59 06:59 18:59 Intake Total 1220 100 240 Output Total 300 575 Balance 920 -475 240 Weight 60 kg Intake: IV 80 100 .9 @ 10 80 100 Oral 1140 240 Output: Urine 300 575 Coude 300 Other: Voiding Method Indwelling Catheter Indwelling Catheter Indwelling Catheter # Bowel Movements 1 - Exam GENERAL EXAM: Alert, active, comfortable in no apparent distress. HEAD: Normocephalic. EYES: Normal reaction of pupils, equal size. NOSE: Clear with pink turbinates. THROAT: No erythema or exudates. NECK: No masses, no JVD. CHEST: No chest wall deformity. LUNGS: Bilaterally diminished and coarse, some faint wheezing noted CVS: S1 and S2 normal with no audible mumurs, regular rhythm. ABDOMEN: No hepatosplenomegaly, normal bowel sounds, no guarding or rigidity. SPINE: No scoliosis or deformity SKIN: No rashes CENTRAL NERVOUS SYSTEM: No focal deficits, tone is normal in all 4 extremities. - Labs CBC & Chem 7: 09/01/16 05:59 09/01/16 05:59 Labs: Abnormal Lab Results - Last 24 Hours (Table) 08/31/16 08/31/16 08/31/16 Range/Units 11:47 16:46 21:03 WBC (3.8-10.6) k/uL Plt Count (150-450) k/uL PT (9.0-12.0) sec Sodium (137-145) mmol/L Carbon Dioxide (22-30) mmol/L BUN (9-20) mg/dL Creatinine (0.66-1.25) mg/dL Glucose (74-99) mg/dL POC Glucose (mg/dL) 300 H 388 H 253 H (75-99) mg/dL Calcium (8.4-10.2) mg/dL Total Bilirubin (0.2-1.3) mg/dL Total Protein (6.3-8.2) g/dL Albumin (3.5-5.0) g/dL 09/01/16 09/01/16 09/01/16 Range/Units 05:59 05:59 05:59 WBC 25.5 H* (3.8-10.6) k/uL Plt Count 46 L* (150-450) k/uL PT 12.9 H (9.0-12.0) sec Sodium 134 L (137-145) mmol/L Carbon Dioxide 20 L (22-30) mmol/L BUN 92 H* (9-20) mg/dL Creatinine 3.25 H (0.66-1.25) mg/dL Glucose 240 H (74-99) mg/dL POC Glucose (mg/dL) (75-99) mg/dL Calcium 8.1 L (8.4-10.2) mg/dL Total Bilirubin 1.6 H (0.2-1.3) mg/dL Total Protein 5.2 L (6.3-8.2) g/dL Albumin 2.8 L (3.5-5.0) g/dL 09/01/16 Range/Units 06:18 WBC (3.8-10.6) k/uL Plt Count (150-450) k/uL PT (9.0-12.0) sec Sodium (137-145) mmol/L Carbon Dioxide (22-30) mmol/L BUN (9-20) mg/dL Creatinine (0.66-1.25) mg/dL Glucose (74-99) mg/dL POC Glucose (mg/dL) 235 H (75-99) mg/dL Calcium (8.4-10.2) mg/dL Total Bilirubin (0.2-1.3) mg/dL Total Protein (6.3-8.2) g/dL Albumin (3.5-5.0) g/dL Assessment and Plan Plan: Assessment #1 acute hypoxic respiratory failure #2 acute exacerbation of CHF, with small bilateral pleural effusions #3 influenza B pneumonia #4 secondary bacterial pneumonia #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 O2 is to maintain at greater saturation of greater than 88%, continue on antibiotics. Tamiflu course is completed. Continue gentle hydration. Continue with nebulizer treatments. Continue to monitor for any worsening of the respiratory status or hydration. Thrombocytopenia, we'll be avoiding heparin. Nephrology is on the case, and managing dialysis. Cardiology continues to follow. We will continue with supportive care, the overall prognosis remains poor however patient is declining hospice evaluation. I performed an examination of the patient and discussed their management with the nurse practitioner. I have reviewed the nurse practitioner's note and agree with the documented findings and plan of care.
[2016-09-01 11:25] LABS: Glucose,Whole Blood 229 mg/dL (75-99)
[2016-09-01 16:00] LABS: Glucose,Whole Blood 157 mg/dL (75-99)
[2016-09-01] MEDS ORDERED: IV FLUID CONTINUATION 1,000 ML IV ONE (17:44)
[2016-09-01] MEDS ORDERED: LIDOCAINE 2% INJ 20 MG/ML SQ ONE (17:57)
--- NOTE | 2016-09-01 18:55 | IR ---
Fluoroscopy HISTORY: Pain EXAMINATION TYPE: IR cvc insert central tunneled DATE OF EXAM: 09/01/2016 6:41 PM COMPARISON: NONE HISTORY: Renal failure Fluoroscopy support supplied to the referring clinician. See dictated report from vascular surgery, 2.3 minutes fluoroscopy time supplied to the referring clinician. 0 intraoperative C-arm images d ocument the procedure. See dictated report from vascular surgery.
--- NOTE | 2016-09-01 19:34 | XR ---
EXAMINATION TYPE: XR chest 1V portable DATE OF EXAM: 09/01/2016 7:20 PM COMPARISON: 09/01/2016 HISTORY: Permacath placement TECHNIQUE: Single frontal view of the chest is obtained. FINDINGS: Heart is enlarged. There is a dual lumen right sided central venous catheter with the tip in the superior vena cava. There is no sign of a pneumothorax. There is a left axillary pacemaker wit h the lead tip in the right ventricle. There are chest leads. There is no heart failure. There is sli ght blunting of left costophrenic angle. IMPRESSION: Catheter appears in good position. I see no complicating process. There is probably a sm all left pleural effusion.
[2016-09-01 20:40] LABS: Glucose,Whole Blood 156 mg/dL (75-99)
[2016-09-01] MEDS: ATORVASTATIN 10 MG TAB PO SCH (21:16)
--- NOTE | 2016-09-01 21:17 | PN ---
DATE OF SERVICE: 09/01/2016 REASON FOR FOLLOWUP: Pseudomonas tracheobronchitis/pneumonia. INTERVAL HISTORY: The patient is afebrile; has been breathing comfortably. Denies significant chest pain. Occasional cough. No abdominal pain or any diarrhea. On examination, blood pressure is 111/57 with a pulse of 83, temperature 97.2. He is 92% on 2 L nasal cannula. General description is an elderly male lying in bed in no distress. RESPIRATORY SYSTEM: Unlabored breathing. Clear to auscultation anteriorly. HEART: S1, S2. Regular rate and rhythm. ABDOMEN: Soft. No tenderness. LABS: Patient noted to have a jump in the white count to 25.5 with a BUN of 92, creatinine of 3.25. DIAGNOSTIC IMPRESSION AND PLAN: 1. Patient with Pseudomonas aeruginosa in culture but more like tracheobronchitis/viral pneumonia, for which the patient is currently on Levaquin. Fortaz was discontinued by primary team. Will continue to monitor. He will need about a week of oral Levaquin. 2. Patient noted to have a jump in the white count, more likely because of steroid effect, since he has been on Solu-Medrol. That has been discontinued and hopefully the white count will start coming down. If any further jump in the white count or new fever to reculture and adjust antibiotic for that. MTDD
[2016-09-02 06:32] LABS: Glucose,Whole Blood 147 mg/dL (75-99)
[2016-09-02] MEDS: INSULIN LISPRO (humaLOG) 300 UNIT/3 ML VIAL SQ SCH ×4 (06:33→20:58)
[2016-09-02 06:34] LABS: Basophils % (A) 0 %; CH 29.5; CHCM 33.1; Eosinophils % (A) 0 %; HCT 40.9 % (39.0-53.0); HDW 2.51; HGB 13.2 gm/dL (13.0-17.5); INR 1.3 (<1.1); Luc # (Auto) 0.06; Luc % (Auto) 0; Lymphocytes # (A) 0.3 k/uL (1.0-4.8); Lymphocytes % (A) 2 %; MCH 28.8 pg (25.0-35.0); MCHC 32.3 g/dL (31.0-37.0); MCV 89.4 fL (80.0-100.0); Mean Platelet Volume 10.3; Monocytes # (A) 0.4 k/uL (0-1.0); Monocytes % (A) 2 %; Neutrophils # (A) 19.7 k/uL (1.3-7.7); Neutrophils % (A) 96 %; Prothrombin Time 12.9 sec (9.0-12.0); RBC 4.57 m/uL (4.30-5.90); RDW 14.9 % (11.5-15.5); WBC 20.5 k/uL (3.8-10.6); WBC (Perox) 21.81
[2016-09-02] MEDS: PANTOPRAZOLE 40 MG TABLET PO SCH (06:34)
[2016-09-02 06:59] LABS: Potassium 4.4 mmol/L (3.5-5.1); Total Bilirubin 2.1 mg/dL (0.2-1.3); Total Protein 4.9 g/dL (6.3-8.2)
--- NOTE | 2016-09-02 08:56 | P.PN ---
Subjective Principal diagnosis: Acute on chronic renal failure with influenza B This continue [id number] white male essentially admitted for pneumonia found have influenza. The patient has cardiorenal syndrome and is now been started on dialysis. Appreciate input from nephrology. He is due for dialysis today. His scrotal edema is improving. His appetite is nominal. Objective - Vital Signs Vital signs: Vital Signs Temp 96.9 F L 09/01/16 19:29 Pulse 64 09/02/16 04:33 Resp 16 09/02/16 04:33 BP 103/79 09/02/16 04:33 Pulse Ox 95 09/02/16 04:33 Intake & Output 09/01/16 09/02/16 09/02/16 18:59 06:59 18:59 Intake Total 520 240 Output Total 425 Balance 520 -185 Weight 60 kg 59.5 kg Intake: IV 40 .9 @ 10 40 Oral 480 240 Output: Urine 425 Other: Voiding Method Indwelling Catheter Indwelling Catheter - Constitutional General appearance: Present: thin - EENT Eyes: Absent: abnormal pupil - Respiratory Respiratory: bilateral: CTA - Cardiovascular Rhythm: irregularly irregular Heart sounds: normal: S1, S2 - Gastrointestinal General gastrointestinal: Present: soft. Absent: tenderness - Genitourinary Male genitourinary: scrotal edema - Integumentary Integumentary: Absent: cyanotic - Musculoskeletal Musculoskeletal: Present: generalized weakness - Labs CBC & Chem 7: 09/02/16 06:04 09/02/16 06:04 Labs: Abnormal Lab Results - Last 24 Hours (Table) 09/01/16 09/01/16 09/01/16 Range/Units 05:59 05:59 11:17 WBC 25.5 H* (3.8-10.6) k/uL Plt Count 46 L* (150-450) k/uL Neutrophils # (1.3-7.7) k/uL Lymphocytes # (1.0-4.8) k/uL PT (9.0-12.0) sec Sodium 134 L (137-145) mmol/L Carbon Dioxide 20 L (22-30) mmol/L BUN 92 H* (9-20) mg/dL Creatinine 3.25 H (0.66-1.25) mg/dL Glucose 240 H (74-99) mg/dL POC Glucose (mg/dL) 229 H (75-99) mg/dL Calcium 8.1 L (8.4-10.2) mg/dL Total Bilirubin 1.6 H (0.2-1.3) mg/dL Total Protein 5.2 L (6.3-8.2) g/dL Albumin 2.8 L (3.5-5.0) g/dL 09/01/16 09/01/16 09/02/16 Range/Units 15:57 20:38 06:04 WBC (3.8-10.6) k/uL Plt Count (150-450) k/uL Neutrophils # (1.3-7.7) k/uL Lymphocytes # (1.0-4.8) k/uL PT 12.9 H (9.0-12.0) sec Sodium (137-145) mmol/L Carbon Dioxide (22-30) mmol/L BUN (9-20) mg/dL Creatinine (0.66-1.25) mg/dL Glucose (74-99) mg/dL POC Glucose (mg/dL) 157 H 156 H (75-99) mg/dL Calcium (8.4-10.2) mg/dL Total Bilirubin (0.2-1.3) mg/dL Total Protein (6.3-8.2) g/dL Albumin (3.5-5.0) g/dL 09/02/16 09/02/16 09/02/16 Range/Units 06:04 06:04 06:30 WBC 20.5 H (3.8-10.6) k/uL Plt Count 37 L* (150-450) k/uL Neutrophils # 19.7 H (1.3-7.7) k/uL Lymphocytes # 0.3 L (1.0-4.8) k/uL PT (9.0-12.0) sec Sodium 134 L (137-145) mmol/L Carbon Dioxide (22-30) mmol/L BUN 77 H (9-20) mg/dL Creatinine 3.10 H (0.66-1.25) mg/dL Glucose 153 H (74-99) mg/dL POC Glucose (mg/dL) 147 H (75-99) mg/dL Calcium 8.0 L (8.4-10.2) mg/dL Total Bilirubin 2.1 H (0.2-1.3) mg/dL Total Protein 4.9 L (6.3-8.2) g/dL Albumin 2.5 L (3.5-5.0) g/dL Assessment and Plan (1) Afib Status: Acute (2) Bronchospasm with bronchitis, acute Status: Acute (3) Dyspnea Status: Acute (4) AICD (automatic cardioverter/defibrillator) present Status: Acute (5) Diabetes Status: Acute (6) Influenza B Status: Acute (7) Acute renal failure Status: Acute Plan: Continue current regimen dialysis.. Anticipate transfer to rehab once medically stable. Prognosis is guarded secondary to his cardiorenal syndrome and poor ejection fraction. But clinically he is slowly improving. Check CMP in a.m. Time with Patient: Less than 30
[2016-09-02] MEDS: BUDESONIDE 1 MG/2 ML NEBU INHALATION SCH ×2 (09:11→19:22)
[2016-09-02] MEDS: IPRATROPIUM-ALBUTEROL 3 ML NEB INHALATION SCH ×4 (09:11→19:23)
[2016-09-02] MEDS: FORMOTEROL FUMARATE 20 MCG/2 ML NEBU INHALATION SCH ×2 (09:11→19:22)
[2016-09-02] MEDS: MULTIVITAMINS, THERA 1 EACH TAB PO SCH (09:24)
[2016-09-02] MEDS: FUROSEMIDE 10 MG/ML 4 ML VIAL IV SCH ×2 (09:24→20:57)
[2016-09-02] MEDS: METOPROLOL SUCCINATE (ER) 50 MG TAB.ER.24H PO SCH (09:24)
[2016-09-02] MEDS: methylPREDNISolone SOD SUCCI 40 MG/ML 1 ML VIAL IV SCH ×2 (09:24→20:58)
[2016-09-02] MEDS: AMIODARONE 200 MG TAB PO SCH ×2 (09:24→20:57)
[2016-09-02] MEDS: MEGESTROL 400 MG/10 ML CUP PO SCH (09:24)
[2016-09-02] MEDS: DORZOLAMIDE-TIMOLOL 2-0.5% DROPS 10 ML BTL BOTH EYES SCH ×2 (09:26→20:57)
[2016-09-02] MEDS: NYSTATIN 100,000 UNIT/ML SUSP 500,000 UNIT/5 ML CUP PO SCH ×4 (09:33→20:58)
[2016-09-02] MEDS: INSULIN DETEMIR 100 UNIT/ML 10 ML VIAL SQ SCH (09:33)
--- NOTE | 2016-09-02 09:50 | P.PN ---
Subjective Patient is seen in follow-up for acute kidney injury. He's currently dialysis dependent due to cardiorenal syndrome and fluid overload. His last hemodialysis was yesterday. He does have systolic CHF with ejection fraction less than 20%. Currently resting in bed. Dyspnea is improving. Urine output about 500 mL over the last 24 hours. Denies any active chest pain. No vomiting or diarrhea. Vital signs are stable. General: The patient appeared well nourished and normally developed. HEENT: Head exam is unremarkable. Neck is without jugular venous distension. LUNGS: Lungs are clear to auscultation and percussion. Breath sounds decreased. HEART: Rate and Rhythm are regular. First and second heart sounds normal. No murmurs, rubs or gallops. ABDOMEN: Abdominal exam reveals normal bowel sounds. Non-tender and non- distended. No evidence of peritonitis. EXTREMITITES: 2+ edema. Objective - Vital Signs Vital signs: Vital Signs Temp 96.9 F L 09/01/16 19:29 Pulse 72 09/02/16 09:36 Resp 16 09/02/16 04:33 BP 103/79 09/02/16 04:33 Pulse Ox 95 09/02/16 04:33 Intake & Output 09/01/16 09/02/16 09/02/16 18:59 06:59 18:59 Intake Total 520 240 237 Output Total 425 Balance 520 -185 237 Weight 60 kg 59.5 kg Intake: IV 40 .9 @ 10 40 Oral 480 240 237 Output: Urine 425 Other: Voiding Method Indwelling Catheter Indwelling Catheter - Labs CBC & Chem 7: 09/02/16 06:04 09/02/16 06:04 Labs: Abnormal Lab Results - Last 24 Hours (Table) 09/01/16 09/01/16 09/01/16 Range/Units 05:59 05:59 11:17 WBC 25.5 H* (3.8-10.6) k/uL Plt Count 46 L* (150-450) k/uL Neutrophils # (1.3-7.7) k/uL Lymphocytes # (1.0-4.8) k/uL PT (9.0-12.0) sec Sodium 134 L (137-145) mmol/L Carbon Dioxide 20 L (22-30) mmol/L BUN 92 H* (9-20) mg/dL Creatinine 3.25 H (0.66-1.25) mg/dL Glucose 240 H (74-99) mg/dL POC Glucose (mg/dL) 229 H (75-99) mg/dL Calcium 8.1 L (8.4-10.2) mg/dL Total Bilirubin 1.6 H (0.2-1.3) mg/dL Total Protein 5.2 L (6.3-8.2) g/dL Albumin 2.8 L (3.5-5.0) g/dL 09/01/16 09/01/16 09/02/16 Range/Units 15:57 20:38 06:04 WBC (3.8-10.6) k/uL Plt Count (150-450) k/uL Neutrophils # (1.3-7.7) k/uL Lymphocytes # (1.0-4.8) k/uL PT 12.9 H (9.0-12.0) sec Sodium (137-145) mmol/L Carbon Dioxide (22-30) mmol/L BUN (9-20) mg/dL Creatinine (0.66-1.25) mg/dL Glucose (74-99) mg/dL POC Glucose (mg/dL) 157 H 156 H (75-99) mg/dL Calcium (8.4-10.2) mg/dL Total Bilirubin (0.2-1.3) mg/dL Total Protein (6.3-8.2) g/dL Albumin (3.5-5.0) g/dL 09/02/16 09/02/16 09/02/16 Range/Units 06:04 06:04 06:30 WBC 20.5 H (3.8-10.6) k/uL Plt Count 37 L* (150-450) k/uL Neutrophils # 19.7 H (1.3-7.7) k/uL Lymphocytes # 0.3 L (1.0-4.8) k/uL PT (9.0-12.0) sec Sodium 134 L (137-145) mmol/L Carbon Dioxide (22-30) mmol/L BUN 77 H (9-20) mg/dL Creatinine 3.10 H (0.66-1.25) mg/dL Glucose 153 H (74-99) mg/dL POC Glucose (mg/dL) 147 H (75-99) mg/dL Calcium 8.0 L (8.4-10.2) mg/dL Total Bilirubin 2.1 H (0.2-1.3) mg/dL Total Protein 4.9 L (6.3-8.2) g/dL Albumin 2.5 L (3.5-5.0) g/dL Assessment and Plan Plan: Assessment: #1. Nonoliguric acute kidney injury secondary to cardiorenal syndrome. Currently hemodialysis dependent. #2. Chronic kidney disease stage III with baseline creatinine near 1.6 secondary to nephrosclerosis and cardiorenal syndrome. Urinalysis is quite benign. #3. Influenza pneumonia. sputum culture also positive for Pseudomonas. #4. Systolic CHF with ejection fraction of less than 20%. Compensated. No evidence of gross fluid overload on chest x-ray. #5. Hypervolemic hyponatremia. Stable. #6. Metabolic acidosis secondary to acute kidney injury. Plan: Hemodialysis tomorrow with goal 2-1/2 L ultrafiltration as blood pressure tolerates. Permacath was placed yesterday. Titus catheter needs to be discontinued. Continue to monitor urine output closely. Maintain Lasix. manager software development on board to help facilitate outpatient dialysis.
--- NOTE | 2016-09-02 10:48 | P.PN ---
Subjective Principal diagnosis: Acute exacerbation of CHF Interval history since last pulmonary progress note: The patient being reevaluated and examined today at bedside on the selective care unit. Patient states he is feeling better overall breathing has improved, dyspnea has improved, he is using his oxygen time, has continued coughing with small yellow sputum production. Patient was found to have influenza B pneumonia, as well as Pseudomonas pneumonia. He has completed Tamiflu. The patient continues with dialysis, 1.75 L of fluid was removed yesterday. The patient's ejection fraction is 10-15%. The patient has multiple comorbidities and his prognosis is highly guarded. Objective - Vital Signs Vital signs: Vital Signs Temp 96.9 F L 09/01/16 19:29 Pulse 72 09/02/16 09:36 Resp 16 09/02/16 04:33 BP 103/79 09/02/16 04:33 Pulse Ox 95 09/02/16 04:33 Intake & Output 09/01/16 09/02/16 09/02/16 18:59 06:59 18:59 Intake Total 520 240 237 Output Total 425 Balance 520 -185 237 Weight 60 kg 59.5 kg Intake: IV 40 .9 @ 10 40 Oral 480 240 237 Output: Urine 425 Other: Voiding Method Indwelling Catheter Indwelling Catheter - Exam GENERAL EXAM: Alert, active, comfortable in no apparent distress. HEAD: Normocephalic. EYES: Normal reaction of pupils, equal size. NOSE: Clear with pink turbinates. THROAT: No erythema or exudates. NECK: No masses, no JVD. CHEST: No chest wall deformity. LUNGS: Bilaterally diminished and coarse, some faint wheezing noted CVS: S1 and S2 normal with no audible mumurs, regular rhythm. ABDOMEN: No hepatosplenomegaly, normal bowel sounds, no guarding or rigidity. SPINE: No scoliosis or deformity SKIN: No rashes CENTRAL NERVOUS SYSTEM: No focal deficits, tone is normal in all 4 extremities. - Labs CBC & Chem 7: 09/02/16 06:04 09/02/16 06:04 Labs: Abnormal Lab Results - Last 24 Hours (Table) 09/01/16 09/01/16 09/01/16 Range/Units 11:17 15:57 20:38 WBC (3.8-10.6) k/uL Plt Count (150-450) k/uL Neutrophils # (1.3-7.7) k/uL Lymphocytes # (1.0-4.8) k/uL PT (9.0-12.0) sec Sodium (137-145) mmol/L BUN (9-20) mg/dL Creatinine (0.66-1.25) mg/dL Glucose (74-99) mg/dL POC Glucose (mg/dL) 229 H 157 H 156 H (75-99) mg/dL Calcium (8.4-10.2) mg/dL Total Bilirubin (0.2-1.3) mg/dL Total Protein (6.3-8.2) g/dL Albumin (3.5-5.0) g/dL 09/02/16 09/02/16 09/02/16 Range/Units 06:04 06:04 06:04 WBC 20.5 H (3.8-10.6) k/uL Plt Count 37 L* (150-450) k/uL Neutrophils # 19.7 H (1.3-7.7) k/uL Lymphocytes # 0.3 L (1.0-4.8) k/uL PT 12.9 H (9.0-12.0) sec Sodium 134 L (137-145) mmol/L BUN 77 H (9-20) mg/dL Creatinine 3.10 H (0.66-1.25) mg/dL Glucose 153 H (74-99) mg/dL POC Glucose (mg/dL) (75-99) mg/dL Calcium 8.0 L (8.4-10.2) mg/dL Total Bilirubin 2.1 H (0.2-1.3) mg/dL Total Protein 4.9 L (6.3-8.2) g/dL Albumin 2.5 L (3.5-5.0) g/dL 09/02/16 Range/Units 06:30 WBC (3.8-10.6) k/uL Plt Count (150-450) k/uL Neutrophils # (1.3-7.7) k/uL Lymphocytes # (1.0-4.8) k/uL PT (9.0-12.0) sec Sodium (137-145) mmol/L BUN (9-20) mg/dL Creatinine (0.66-1.25) mg/dL Glucose (74-99) mg/dL POC Glucose (mg/dL) 147 H (75-99) mg/dL Calcium (8.4-10.2) mg/dL Total Bilirubin (0.2-1.3) mg/dL Total Protein (6.3-8.2) g/dL Albumin (3.5-5.0) g/dL Assessment and Plan Plan: Assessment #1 acute hypoxic respiratory failure #2 acute exacerbation of CHF, with small bilateral pleural effusions #3 influenza B pneumonia #4 secondary bacterial pneumonia #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 O2 is to maintain at greater saturation of greater than 88%, continue on antibiotics. Tamiflu course is completed. Continue gentle hydration. Continue with nebulizer treatments. Continue to monitor for any worsening of the respiratory status or hydration. Thrombocytopenia, we'll be avoiding heparin. Nephrology is on the case, and managing dialysis, patient will undergo hemodialysis tomorrow with a 2.5 L ultrafiltration goal per nephroplogy consult. Cardiology continues to follow. We will continue with supportive care , the overall prognosis remains poor however patient is declining hospice evaluation. I performed an examination of the patient and discussed their management with the nurse practitioner. I have reviewed the nurse practitioner's note and agree with the documented findings and plan of care.
[2016-09-02 11:16] LABS: Glucose,Whole Blood 209 mg/dL (75-99)
--- NOTE | 2016-09-02 15:37 | US ---
EXAMINATION TYPE: US venous doppler duplex LE RT DATE OF EXAM: 09/02/2016 1:18 PM COMPARISON: NONE CLINICAL HISTORY: possible dvt. Right leg swelling SIDE PERFORMED: Right Grayscale, color Doppler, spectral Doppler imaging performed of the deep veins of the right lower ext remity. Right common femoral, superficial femoral, popliteal veins all compress normally and show no abnormal luminal echoes. Venous waveforms are within normal limits. IMPRESSION: Right Leg: No evidence of DVT
[2016-09-02 16:49] LABS: Glucose,Whole Blood 168 mg/dL (75-99)
[2016-09-02] MEDS: DONEPEZIL 5 MG TAB PO SCH (17:14)
[2016-09-02] MEDS: LEVOFLOXACIN 250 MG TAB PO SCH (17:14)
[2016-09-02] MEDS: ATORVASTATIN 10 MG TAB PO SCH (20:57)
[2016-09-02 20:58] LABS: Glucose,Whole Blood 201 mg/dL (75-99)
--- NOTE | 2016-09-02 22:02 | P.CONS ---
History of Present Illness - Reason for Consult Consult date: 09/02/16 Leucocytosis and thrombocytopenia - History of Present Illness The pt is an 81 yr old WM, with multiple medical problems. He was admitted on 08/15/16 with progressive SOB over the past few days, upper airway congestion and cough. He was found to have Influenza B, as well as CHF. He was admitted and treated with Tamiflu. His stay was complicated by progressive renal insufficiency, and fluid overload requiring initiation of hemodialysis. He initially had a catheter placed in the right femoral vein, and subsequently another in the right chest After initial improvement he developed progressive congestion and productive cough, with sputum culture on 08/24/16 positive for pseudomonas. On admission Plt count was in the mid 100 range. It has declined further over the last 5-6 days , to 37 today. WBC, initially normal, has increased to 20.5, with predominantly neutrophilia. Hgb has remained normal. The consult was therefore placed for further evaluation and recommendations. Review of records in the EHR shows chronic, mild thrombocytopenia, with plt in the 100-150 range. In 12/18, when admitted ,also for pneumonia and CHF, they had declined into the 30-40 range. HIT ab testing during this admission was negative. Removal of the rt groin catheter is on hold due to the low platelets. Review of Systems Constitutional: Reports fatigue, Reports poor appetite, Reports weakness Eyes: denies blurred vision, denies pain Ears: deny: decreased hearing, ear discharge, earache, tinnitus Ears, nose, mouth and throat: Denies headache, Denies sore throat Cardiovascular: Reports leg edema, Reports orthopnea, Reports shortness of breath Respiratory: Reports dyspnea Gastrointestinal: Denies abdominal pain, Denies diarrhea, Denies nausea, Denies vomiting Genitourinary: Reports as per HPI (decreased urine output) Musculoskeletal: Reports muscle weakness Integumentary: Reports unusual bruising Neurological: Reports weakness Psychiatric: Denies anxiety, Denies depression Endocrine: Reports fatigue, Reports weight change Hematologic/Lymphatic: Reports as per HPI, Reports easy bruising Past Medical History Past Medical History: Atrial Fibrillation, Heart Failure, Diabetes Mellitus, Hypertension, Renal Disease, Skin Disorder Additional Past Medical History / Comment(s): skin CA, "/PT STATED NEVER HAD HIGH BP", BRONCHITS/BRONCHOSPASM JUN 2016 History of Any Multi-Drug Resistant Organisms: None Reported Past Surgical History: AICD, Cholecystectomy, Hernia Repair Additional Past Surgical History / Comment(s): defibrillator, cataracts removed , skin CA removed from face Past Anesthesia/Blood Transfusion Reactions: No Reported Reaction Type of Cardiac Device: AICD Device Placement Date:: 07-28-11 Past Psychological History: No Psychological Hx Reported Additional Psychological History / Comment(s): Pt resides with his spouse of 53 yrs. He is independent. He drives. Smoking Status: Never smoker Past Alcohol Use History: None Reported Past Drug Use History: None Reported - Past Family History Mother History Unknown: Yes Additional Family Medical History / Comment(s): Pt does not know parents history -he was raised in foster care. Son(s) Family Medical History: AFIB Additional Family Medical History / Comment(s): son had heart transplant Medications and Allergies Home Medications Medication Instructions Recorded Confirmed Type Digoxin [Lanoxin] 125 mcg PO Q48H 09/03/14 08/15/16 History Insulin Detemir [Levemir Flextouch] 22 units SQ QAM 09/03/14 08/15/16 History Lovastatin [Mevacor] 40 mg PO HS 09/03/14 08/15/16 History Multivitamins, Thera [Multivitamin] 1 tab PO DAILY 09/03/14 08/15/16 History hydrALAZINE HCL [Apresoline] 25 mg PO TID 09/03/14 08/15/16 History Apixaban [Eliquis] 2.5 mg PO BID 01/18/16 08/15/16 History Isosorbide Dinitrate [Isordil] 10 mg PO TID 01/18/16 08/15/16 History Rivastigmine Tartrate 1.5 mg PO BID 01/18/16 08/15/16 History [Rivastigmine] Insulin Aspart [NovoLOG Flexpen] See Protocol SQ AC-TID 06/23/16 08/15/16 History Cefuroxime [Ceftin] 500 mg PO BID 08/15/16 08/15/16 History Dorzolamide/Timolol/Pf [Cosopt Pf 1 applicator BOTH EYES BID 08/15/16 08/15/16 History 2%/5% Ophth Droperette] Furosemide [Lasix] 40 mg PO DAILY 08/15/16 08/15/16 History Metoprolol Succinate [Toprol XL] 50 mg PO DAILY 08/15/16 08/15/16 History traMADol HCL [Ultram] 50 mg PO Q6HR PRN 08/15/16 08/15/16 History Allergies Allergy/AdvReac Type Severity Reaction Status Date / Time fish oil Allergy Unknown Verified 08/15/16 13:09 Iodinated Contrast Media - Allergy Rash/Hives Verified 08/15/16 13:09 Oral and [Iodinated Contrast Media - IV Dye] shellfish derived Allergy Rash/Hives Verified 08/15/16 13:09 warfarin sodium Allergy Unknown Verified 08/15/16 13:09 [From Coumadin] Physical Exam Vitals: Vital Signs Temp Pulse Pulse Pulse Resp BP BP 09/02/16 09:36 72 09/02/16 09:24 74 09/02/16 09:23 74 09/02/16 09:13 70 09/02/16 04:33 64 16 09/02/16 00:00 67 18 09/01/16 20:27 68 09/01/16 20:15 66 09/01/16 20:05 60 09/01/16 19:29 96.9 F L 74 16 09/01/16 15:03 97.2 F L 83 88 16 91/68 09/01/16 12:00 83 88 14 111/57 BP Pulse Ox 09/02/16 09:36 09/02/16 09:24 09/02/16 09:23 09/02/16 09:13 09/02/16 04:33 103/79 95 09/02/16 00:00 103/62 98 09/01/16 20:27 09/01/16 20:15 09/01/16 20:05 09/01/16 19:29 100/64 96 09/01/16 15:03 09/01/16 12:00 92 L Intake and Output 09/01/16 09/02/16 09/02/16 22:59 06:59 14:59 Intake Total 240 237 Output Total 425 Balance 240 -425 237 Intake: Oral 240 237 Output: Urine 425 Other: Voiding Method Indwelling Catheter Indwelling Catheter Weight 59.5 kg - Constitutional General appearance: no acute distress - EENT Eyes: EOMI, PERRLA ENT: hearing grossly normal, normal oropharynx - Neck Neck: no lymphadenopathy Carotids: bilateral: upstroke delayed Thyroid: bilateral: normal size - Respiratory Respiratory: bilateral: rales - Cardiovascular AICD left chest wall Rhythm: regular Heart sounds: normal: S1, S2 Abnormal Heart Sounds: S3 Gallop - Gastrointestinal General gastrointestinal: normal bowel sounds, soft - Integumentary scattered bruises - Neurologic Neurologic: CNII-XII intact - Musculoskeletal 2+ LE edema Musculoskeletal: generalized weakness, strength equal bilaterally Results CBC & Chem 7: 09/02/16 06:04 09/02/16 06:04 Labs: Abnormal Lab Results - Last 24 Hours (Table) 09/01/16 09/01/16 09/01/16 Range/Units 05:59 05:59 11:17 WBC 25.5 H* (3.8-10.6) k/uL Plt Count 46 L* (150-450) k/uL Neutrophils # (1.3-7.7) k/uL Lymphocytes # (1.0-4.8) k/uL PT (9.0-12.0) sec Sodium 134 L (137-145) mmol/L Carbon Dioxide 20 L (22-30) mmol/L BUN 92 H* (9-20) mg/dL Creatinine 3.25 H (0.66-1.25) mg/dL Glucose 240 H (74-99) mg/dL POC Glucose (mg/dL) 229 H (75-99) mg/dL Calcium 8.1 L (8.4-10.2) mg/dL Total Bilirubin 1.6 H (0.2-1.3) mg/dL Total Protein 5.2 L (6.3-8.2) g/dL Albumin 2.8 L (3.5-5.0) g/dL 09/01/16 09/01/16 09/02/16 Range/Units 15:57 20:38 06:04 WBC (3.8-10.6) k/uL Plt Count (150-450) k/uL Neutrophils # (1.3-7.7) k/uL Lymphocytes # (1.0-4.8) k/uL PT 12.9 H (9.0-12.0) sec Sodium (137-145) mmol/L Carbon Dioxide (22-30) mmol/L BUN (9-20) mg/dL Creatinine (0.66-1.25) mg/dL Glucose (74-99) mg/dL POC Glucose (mg/dL) 157 H 156 H (75-99) mg/dL Calcium (8.4-10.2) mg/dL Total Bilirubin (0.2-1.3) mg/dL Total Protein (6.3-8.2) g/dL Albumin (3.5-5.0) g/dL 09/02/16 09/02/16 09/02/16 Range/Units 06:04 06:04 06:30 WBC 20.5 H (3.8-10.6) k/uL Plt Count 37 L* (150-450) k/uL Neutrophils # 19.7 H (1.3-7.7) k/uL Lymphocytes # 0.3 L (1.0-4.8) k/uL PT (9.0-12.0) sec Sodium 134 L (137-145) mmol/L Carbon Dioxide (22-30) mmol/L BUN 77 H (9-20) mg/dL Creatinine 3.10 H (0.66-1.25) mg/dL Glucose 153 H (74-99) mg/dL POC Glucose (mg/dL) 147 H (75-99) mg/dL Calcium 8.0 L (8.4-10.2) mg/dL Total Bilirubin 2.1 H (0.2-1.3) mg/dL Total Protein 4.9 L (6.3-8.2) g/dL Albumin 2.5 L (3.5-5.0) g/dL Chest x-ray: report reviewed Assessment and Plan (1) Thrombocytopenia Narrative/Plan: And actually has a chronic mild thrombocytopenia at baseline. Baseline platelet count is well within a safe range, usually above 100. Previously too, the patient has had drop in platelet counts into the 30,000 range in association with congestive heart failure and sepsis. They subsequently recovered. Therefore this time also, it is felt that the etiology is the same, that is, the drop in platelet counts is due to increased consumption from sepsis. There may also be an element of increased splenic sequestration due to congestive heart failure. HIT antibody has already been tested and found negative and therefore this is not a concern. Therefore, based on the clinical picture, expect that the patient platelet count will spontaneously recover. Currently the patient's femoral catheter removal is on hold due to the low platelets. If this can be done later, then we can just hold off until the platelet count recovers above 50,000. If any procedure is needed to be performed on an urgent basis, or if the patient shows any evidence of spontaneous bleeding, then he can be transfused platelets. He may have some platelet dysfunction because of renal insufficiency. For minor bleeds, we can use DDAVP or Sandostatin for control. Workup for causes of his baseline thrombo-cytopenia will be ordered. In his age group, a possibility is a low level MDS. Other etiologies are not ruled out Status: Acute (2) Leucocytosis Narrative/Plan: The patient's white blood cells were normal at baseline. Differential was also normal. The increase in white blood cells was due to neutrophilia. This is felt to be reactive, due to his suspected infection, as well as steroid use. This is also expected to improve, as the patient improves and comes off the steroids. Status: Acute
--- NOTE | 2016-09-02 23:01 | PN ---
DATE OF SERVICE: 09/02/2016 REASON FOR FOLLOWUP: Pseudomonas tracheobronchitis/pneumonia. INTERVAL HISTORY: The patient is afebrile; has been breathing comfortably. Occasional cough. Denies any chest pain. No abdominal pain or any diarrhea. On examination, blood pressure 120/73 with a pulse of 69, temperature 97. He is 96% on room air. General description is an elderly male up in the bed in no distress. RESPIRATORY SYSTEM: Unlabored breathing with decreased breath sounds at the bases. No wheeze. HEART: S1, S2. Regular rate and rhythm. ABDOMEN: Soft. No tenderness. LABS: Hemoglobin is 13.2. White count now is 20.5 from yesterday 25,000. BUN of 37, creatinine 3.10. DIAGNOSTIC IMPRESSION AND PLAN: 1. Patient with pseudomonas positive sputum culture with likely tracheobronchitis/mild pneumonia. He is currently on Levaquin. That will continue for about a week to finish the course of therapy. 2. Patient with elevated white count, more likely a steroid effect, showing a downward trend after decrease dose continue supportive care. MTDD
[2016-09-03 06:28] LABS: Glucose,Whole Blood 209 mg/dL (75-99)
[2016-09-03 06:42] LABS: CH 29.2; HCT 40.2 % (39.0-53.0); HDW 2.47; HGB 13.3 gm/dL (13.0-17.5); MCH 29.3 pg (25.0-35.0); MCV 88.9 fL (80.0-100.0); Mean Platelet Volume 8.9; RBC 4.52 m/uL (4.30-5.90); RDW 14.6 % (11.5-15.5); WBC 19.5 k/uL (3.8-10.6)
[2016-09-03] MEDS: INSULIN LISPRO (humaLOG) 300 UNIT/3 ML VIAL SQ SCH ×4 (06:50→21:37)
[2016-09-03 06:55] LABS: ALT 44 U/L (21-72); AST 28 U/L (17-59); Alkaline Phosphatase 103 U/L (38-126); Anion Gap 13 mmol/L; Calcium 7.7 mg/dL (8.4-10.2); Carbon Dioxide 22 mmol/L (22-30); Chloride 99 mmol/L (98-107); Glucose 256 mg/dL (74-99); Non-African American GFR(MDRD) 18 (>60 ml/min/1.73 sqM); Potassium 4.2 mmol/L (3.5-5.1); Sodium 134 mmol/L (137-145); Total Bilirubin 1.7 mg/dL (0.2-1.3); Total Protein 4.9 g/dL (6.3-8.2)
[2016-09-03 07:05] LABS: Blood Urea Nitrogen 85 mg/dL (9-20)
[2016-09-03] MEDS: BUDESONIDE 1 MG/2 ML NEBU INHALATION SCH ×2 (08:13→19:19)
[2016-09-03] MEDS: FORMOTEROL FUMARATE 20 MCG/2 ML NEBU INHALATION SCH ×2 (08:13→19:19)
[2016-09-03] MEDS: IPRATROPIUM-ALBUTEROL 3 ML NEB INHALATION SCH ×4 (08:13→19:19)
[2016-09-03] MEDS: MEGESTROL 400 MG/10 ML CUP PO SCH (08:15)
[2016-09-03] MEDS: FUROSEMIDE 10 MG/ML 4 ML VIAL IV SCH (08:15)
[2016-09-03] MEDS: NYSTATIN 100,000 UNIT/ML SUSP 500,000 UNIT/5 ML CUP PO SCH ×4 (08:15→21:37)
[2016-09-03] MEDS: AMIODARONE 200 MG TAB PO SCH ×2 (08:16→21:37)
[2016-09-03] MEDS: MULTIVITAMINS, THERA 1 EACH TAB PO SCH (08:16)
[2016-09-03] MEDS: DORZOLAMIDE-TIMOLOL 2-0.5% DROPS 10 ML BTL BOTH EYES SCH ×2 (08:16→21:37)
[2016-09-03] MEDS: PANTOPRAZOLE 40 MG TABLET PO SCH (08:16)
[2016-09-03] MEDS: DONEPEZIL 5 MG TAB PO SCH (08:16)
[2016-09-03] MEDS: METOPROLOL SUCCINATE (ER) 50 MG TAB.ER.24H PO SCH (08:17)
[2016-09-03] MEDS: INSULIN DETEMIR 100 UNIT/ML 10 ML VIAL SQ SCH (08:25)
[2016-09-03] MEDS: methylPREDNISolone SOD SUCCI 40 MG/ML 1 ML VIAL IV SCH ×2 (08:25→21:35)
[2016-09-03] MEDS ORDERED: FUROSEMIDE 10 MG/ML 4 ML VIAL IV ONE (09:30)
--- NOTE | 2016-09-03 10:14 | PN ---
Patient is seen for followup for acute kidney injury, currently dialysis-dependent. His urine output has been quite low. Patient was dialyzed this morning with 3 L of ultrafiltration. Overall he is much more awake, eating a little bit more, although his legs are significantly edematous with severe penile and scrotal edema. On examination today, blood pressure is 110/66, heart rate 69 per minute. He is afebrile. HEART: S1 and S2. LUNGS: Bilateral breath sounds are heard. Decreased breath sounds in the bases. Abdomen is soft, nontender. Lower extremities show edema, 3+ bilaterally, and there severe scrotal and penile edema noted. There is no bleeding noted at the site of the right femoral catheter, which is now removed. [employer] is grossly intact. Patient is moving all 4 extremities. Labs show sodium 134, potassium 4.2. Hemoglobin 13.3 g/dL. ASSESSMENT: 1. Acute kidney injury, currently dialysis-dependent, secondary to cardiorenal syndrome with severe volume overload and lower extremity and penile and scrotal edema. Patient is status post dialysis today with ultrafiltration of about 3 L. He is not making much urine. I will increase his Lasix. We will dialyze him again tomorrow to improve his volume status. 2. Thrombocytopenia, fairly stable. Patient has been evaluated by Hematology. 3. Severe cardiomyopathy, ejection fraction of 20%. 4. Generalized debility. 5. Hypervolemic hyponatremia, slightly improved. 6. Influenza pneumonia. 7. Sputum positive for Pseudomonas, maintained on antibiotics. 8. Chronic kidney disease stage 3, with baseline creatinine about 1.6. PLAN: To increase Lasix, repeat dialysis tomorrow to try and improve the volume overload.
--- NOTE | 2016-09-03 10:22 | PN ---
DATE OF SERVICE: 09/03/2016 Mr. Qureshi is an 81-year-old male who is status post hemodialysis earlier this morning. Breathing much better. About 3 L of fluid has been removed. His hemodynamic status is stable. No obvious distress present. Last set of vitals include blood pressure is 110/70, respiratory rate 16 to 18, heart rate 80, temperature 98, saturation 98%. HEENT: Unremarkable. NECK: Supple. LUNGS: Good air entry bilaterally without significant rales, rhonchi or rub. A few crackles at the bases. HEART: Regular rate and rhythm. S1 and S2 audible. ABDOMEN: Soft. No rebound or rigidity. EXTREMITIES: +1 peripheral pulses. NEUROLOGICAL EXAMINATION: Otherwise awake and alert. IMPRESSION: 1. Influenza pneumonia. 2. Acute chronic obstructive pulmonary disease exacerbation. 3. Congestive heart failure with severe cardiomyopathy, acute on chronic systolic heart failure. 4. Acute renal failure. Plan and recommendation is to monitor patient off of steroids. Continue breathing treatments, antibiotics. Continue supportive care. Continue gentle diuresis. Increase activity as tolerated. Will follow.
[2016-09-03 11:53] LABS: Glucose,Whole Blood 275 mg/dL (75-99)
[2016-09-03 16:45] LABS: Rheumatoid Factor, Qnt <9 IU/mL (<12)
[2016-09-03 16:54] LABS: Glucose,Whole Blood 313 mg/dL (75-99)
[2016-09-03 16:59] LABS: ANA w/Reflex to Titer NEGATIVE (NEGATIVE)
[2016-09-03 17:33] LABS: Vitamin B12 >1000 pg/mL
[2016-09-03 20:44] LABS: Glucose,Whole Blood 296 mg/dL (75-99)
[2016-09-03] MEDS: FUROSEMIDE 10 MG/ML 10 ML VIAL IV SCH (21:37)
[2016-09-03] MEDS: ATORVASTATIN 10 MG TAB PO SCH (21:37)
--- NOTE | 2016-09-03 22:15 | PN ---
DATE OF SERVICE: 09/03/2016 REASON FOR FOLLOWUP: Pseudomonas tracheobronchitis/pneumonia. INTERVAL HISTORY: The patient is afebrile. He has been breathing comfortably. Denies significant chest pain or cough. No abdominal pain or any diarrhea. On examination, blood pressure 101/59 with a pulse of 71, temperature 96.8. He is 98% on 2 L nasal cannula. General description is an elderly male lying in bed in no distress. RESPIRATORY SYSTEM: Unlabored breathing. Clear to auscultation anteriorly. HEART: S1, S2. Regular rate and rhythm. ABDOMEN: Soft. No tenderness. LABS: Hemoglobin is 13.3 with a white count of 19.5 with a BUN of 85, creatinine of 3.30. DIAGNOSTIC IMPRESSION AND PLAN: 1. Patient with pseudomonas tracheobronchitis/pneumonia, currently on Levaquin. Continue for another week to finish course of therapy. 2. Elevated white count, more likely steroid effect. Has been on downward trend already. Will continue to monitor him closely.
[2016-09-04 05:37] LABS: Glucose,Whole Blood 140 mg/dL (75-99)
[2016-09-04] MEDS: INSULIN LISPRO (humaLOG) 300 UNIT/3 ML VIAL SQ SCH ×4 (06:39→21:21)
[2016-09-04] MEDS: PANTOPRAZOLE 40 MG TABLET PO SCH (06:39)
--- NOTE | 2016-09-04 07:44 | PCN ---
DATE OF PROCEDURE: PROCEDURE: Ultrasound-guided right internal jugular placed 24 cm. Patient was brought to the [facility]. A right IJ was prepped and draped in the usual manner. Ultrasound-guided micropuncture into right internal jugular vein, 4 Japanese dilator mass on the top of the guidewire. Under fluoroscopy the guidewire was passed in the inferior vena cava. We did find this patient had AICD placed. After that, tunnel was created. Through the tunnel, we brought 24 cm dialysis catheter. This catheter was secured with Vicryl nylon, flushed with heparin saline and dressing applied. Patient tolerated the procedure well.
[2016-09-04] MEDS: INSULIN DETEMIR 100 UNIT/ML 10 ML VIAL SQ SCH (08:08)
[2016-09-04] MEDS: FUROSEMIDE 10 MG/ML 10 ML VIAL IV SCH ×2 (08:09→21:22)
[2016-09-04] MEDS: NYSTATIN 100,000 UNIT/ML SUSP 500,000 UNIT/5 ML CUP PO SCH ×4 (08:09→21:22)
[2016-09-04] MEDS: DORZOLAMIDE-TIMOLOL 2-0.5% DROPS 10 ML BTL BOTH EYES SCH ×2 (08:15→21:22)
[2016-09-04] MEDS: METOPROLOL SUCCINATE (ER) 50 MG TAB.ER.24H PO SCH (08:17)
[2016-09-04] MEDS: AMIODARONE 200 MG TAB PO SCH ×2 (08:17→21:22)
[2016-09-04] MEDS: MULTIVITAMINS, THERA 1 EACH TAB PO SCH (08:17)
[2016-09-04] MEDS: methylPREDNISolone SOD SUCCI 40 MG/ML 1 ML VIAL IV SCH ×2 (08:18→21:21)
[2016-09-04] MEDS: DONEPEZIL 5 MG TAB PO SCH (08:18)
[2016-09-04] MEDS: MEGESTROL 400 MG/10 ML CUP PO SCH (08:18)
--- NOTE | 2016-09-04 08:34 | P.PN ---
Subjective Principal diagnosis: Generalized weakness This is a continue [id number] white male who essentially admitted for treatment of bronchitis with influenza B. Respiratory hauser he is improving significantly. However, he is developing acute on chronic renal failure and has significant cardiorenal syndrome. Significant weakness is also noted. He is scheduled for dialysis today. Objective - Vital Signs Vital signs: Vital Signs Temp 96.8 F L 09/04/16 08:00 Pulse 65 09/04/16 08:00 Resp 16 09/04/16 08:00 BP 105/39 09/04/16 08:00 Pulse Ox 98 09/04/16 08:00 Intake & Output 09/03/16 09/04/16 09/04/16 18:59 06:59 18:59 Intake Total 686 60 878 Output Total 900 Balance -214 60 878 Weight 57 kg Intake: IV 50 60 638 .9 @ 10 50 60 628 Invasive Line 9 10 Oral 636 240 Output: Urine 900 Other: Voiding Method Indwelling Catheter Indwelling Catheter Indwelling Catheter # Voids 1 - Constitutional General appearance: Present: thin - Neck Neck: Absent: lymphadenopathy - Respiratory Respiratory: bilateral: CTA - Cardiovascular Rhythm: regular Heart sounds: normal: S1, S2 - Gastrointestinal General gastrointestinal: Present: soft. Absent: tenderness - Integumentary Integumentary: Absent: cellulitis - Neurologic Neurologic: Present: CNII-XII intact - Musculoskeletal Musculoskeletal: Present: generalized weakness - Labs CBC & Chem 7: 09/03/16 06:09 09/03/16 06:09 Labs: Abnormal Lab Results - Last 24 Hours (Table) 09/03/16 09/03/16 09/03/16 Range/Units 06:09 06:09 06:09 Sodium 134 L (137-145) mmol/L BUN 85 H* (9-20) mg/dL Creatinine 3.30 H (0.66-1.25) mg/dL Glucose 256 H (74-99) mg/dL POC Glucose (mg/dL) (75-99) mg/dL Calcium 7.7 L (8.4-10.2) mg/dL Total Bilirubin 1.7 H (0.2-1.3) mg/dL Total Protein 4.9 L (6.3-8.2) g/dL Total Protein (PEP) 5.4 L (6.2-8.2) g/dL Albumin 2.4 L (3.5-5.0) g/dL RBC Folate 968 H (280 - 791) ng/mL 09/03/16 09/03/16 09/03/16 Range/Units 11:50 16:52 20:43 Sodium (137-145) mmol/L BUN (9-20) mg/dL Creatinine (0.66-1.25) mg/dL Glucose (74-99) mg/dL POC Glucose (mg/dL) 275 H 313 H 296 H (75-99) mg/dL Calcium (8.4-10.2) mg/dL Total Bilirubin (0.2-1.3) mg/dL Total Protein (6.3-8.2) g/dL Total Protein (PEP) (6.2-8.2) g/dL Albumin (3.5-5.0) g/dL RBC Folate (280 - 791) ng/mL 09/04/16 Range/Units 05:35 Sodium (137-145) mmol/L BUN (9-20) mg/dL Creatinine (0.66-1.25) mg/dL Glucose (74-99) mg/dL POC Glucose (mg/dL) 140 H (75-99) mg/dL Calcium (8.4-10.2) mg/dL Total Bilirubin (0.2-1.3) mg/dL Total Protein (6.3-8.2) g/dL Total Protein (PEP) (6.2-8.2) g/dL Albumin (3.5-5.0) g/dL RBC Folate (280 - 791) ng/mL Assessment and Plan (1) Afib Status: Acute (2) Bronchospasm with bronchitis, acute Status: Acute (3) Dyspnea Status: Acute (4) AICD (automatic cardioverter/defibrillator) present Status: Acute (5) Diabetes Status: Acute (6) Influenza B Status: Acute (7) Acute renal failure Status: Acute Plan: Continue dialysis for element of cardiorenal syndrome. Prognosis is guarded secondary to his poor ejection fraction. Anticipate rehab placement once cleared and stabilized by nephrology. Check CMP in a.m. Time with Patient: Greater than 30
[2016-09-04] MEDS: BUDESONIDE 1 MG/2 ML NEBU INHALATION SCH ×2 (09:26→20:33)
[2016-09-04] MEDS: FORMOTEROL FUMARATE 20 MCG/2 ML NEBU INHALATION SCH ×2 (09:26→20:33)
[2016-09-04] MEDS: IPRATROPIUM-ALBUTEROL 3 ML NEB INHALATION SCH ×4 (09:26→20:33)
--- NOTE | 2016-09-04 09:52 | PN ---
Patient is seen for followup for acute kidney injury secondary to cardiorenal syndrome. He is currently significantly volume overloaded. He was started on high-dose Lasix yesterday. He has had good urine output and his swelling appears to be slightly improved. Patient is also scheduled for hemodialysis today. On examination, blood pressure is 105/39, heart rate 68 per minute. He is afebrile. Examination of the heart, S1 and S2. Examination of the lungs, decreased breath sounds at the bases. Abdomen is soft, nontender. Examination of lower extremities shows edema 2+ bilaterally, hematoma and significant swelling in his right lower extremity in the groin at the site of the Titus catheter. No active bleeding noted at this time. This patient is moving all 4 extremities. Labs are not available from today. Hemoglobin was 13.3 yesterday, potassium was 4.2, creatinine 3.3, BUN 85. ASSESSMENT: 1. Acute kidney injury, cardiorenal syndrome, currently nonoliguric, maintained on high-dose Lasix with good urine output. He will also be dialyzed today secondary to significant volume overload. 2. Volume overload with severe edema in the lower extremities and penile edema, slowly getting better. 3. Status post influenza. 4. Thrombocytopenia, fairly stable. No active bleeding noted at this time. 5. Hematoma in the right femoral region at the site of the Titus catheter, currently stable. PLAN: Repeat dialysis today. Continue with IV Lasix. Monitor potassium and encourage increased oral intake, particularly protein.
--- NOTE | 2016-09-04 10:32 | P.PN ---
Subjective Principal diagnosis: Acute exacerbation of CHF Interval history since last pulmonary progress note: The patient being reevaluated and examined today at bedside on the selective care unit. Patient is currently sitting up in the chair Patient states he is feeling better overall breathing has improved, dyspnea has improved, he is using his oxygen time, has continued coughing with small yellow sputum production. Patient was found to have influenza B pneumonia, as well as Pseudomonas pneumonia. He has completed Tamiflu. The patient continues with dialysis, 300 mL of fluid was removed yesterday. The patient's ejection fraction is 10-15%. The patient has multiple comorbidities and his prognosis is highly guarded. Objective - Vital Signs Vital signs: Vital Signs Temp 96.8 F L 09/04/16 08:00 Pulse 68 09/04/16 09:34 Resp 16 09/04/16 08:00 BP 105/39 09/04/16 08:00 Pulse Ox 98 09/04/16 08:00 Intake & Output 09/03/16 09/04/16 09/04/16 18:59 06:59 18:59 Intake Total 686 60 878 Output Total 900 Balance -214 60 878 Weight 57 kg 57 kg Intake: IV 50 60 638 .9 @ 10 50 60 628 Invasive Line 9 10 Oral 636 240 Output: Urine 900 Other: Voiding Method Indwelling Catheter Indwelling Catheter Indwelling Catheter # Voids 1 - Exam GENERAL EXAM: Alert, active, comfortable in no apparent distress. HEAD: Normocephalic. EYES: Normal reaction of pupils, equal size. NOSE: Clear with pink turbinates. THROAT: No erythema or exudates. NECK: No masses, no JVD. CHEST: No chest wall deformity. LUNGS: Bilaterally diminished and coarse, some faint wheezing noted CVS: S1 and S2 normal with no audible mumurs, regular rhythm. ABDOMEN: No hepatosplenomegaly, normal bowel sounds, no guarding or rigidity. SPINE: No scoliosis or deformity SKIN: No rashes CENTRAL NERVOUS SYSTEM: No focal deficits, tone is normal in all 4 extremities. - Labs CBC & Chem 7: 09/03/16 06:09 09/03/16 06:09 Labs: Abnormal Lab Results - Last 24 Hours (Table) 09/03/16 09/03/16 09/03/16 Range/Units 06:09 06:09 06:09 Sodium 134 L (137-145) mmol/L BUN 85 H* (9-20) mg/dL Creatinine 3.30 H (0.66-1.25) mg/dL Glucose 256 H (74-99) mg/dL POC Glucose (mg/dL) (75-99) mg/dL Calcium 7.7 L (8.4-10.2) mg/dL Total Bilirubin 1.7 H (0.2-1.3) mg/dL Total Protein 4.9 L (6.3-8.2) g/dL Total Protein (PEP) 5.4 L (6.2-8.2) g/dL Albumin 2.4 L (3.5-5.0) g/dL RBC Folate 968 H (280 - 791) ng/mL 09/03/16 09/03/16 09/03/16 Range/Units 11:50 16:52 20:43 Sodium (137-145) mmol/L BUN (9-20) mg/dL Creatinine (0.66-1.25) mg/dL Glucose (74-99) mg/dL POC Glucose (mg/dL) 275 H 313 H 296 H (75-99) mg/dL Calcium (8.4-10.2) mg/dL Total Bilirubin (0.2-1.3) mg/dL Total Protein (6.3-8.2) g/dL Total Protein (PEP) (6.2-8.2) g/dL Albumin (3.5-5.0) g/dL RBC Folate (280 - 791) ng/mL 09/04/16 Range/Units 05:35 Sodium (137-145) mmol/L BUN (9-20) mg/dL Creatinine (0.66-1.25) mg/dL Glucose (74-99) mg/dL POC Glucose (mg/dL) 140 H (75-99) mg/dL Calcium (8.4-10.2) mg/dL Total Bilirubin (0.2-1.3) mg/dL Total Protein (6.3-8.2) g/dL Total Protein (PEP) (6.2-8.2) g/dL Albumin (3.5-5.0) g/dL RBC Folate (280 - 791) ng/mL Assessment and Plan Plan: Assessment #1 acute hypoxic respiratory failure #2 acute exacerbation of CHF, with small bilateral pleural effusions #3 influenza B pneumonia #4 secondary bacterial pneumonia #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 O2 is to maintain at greater saturation of greater than 88%, continue on antibiotics. Tamiflu course is completed. Continue gentle hydration. Continue with nebulizer treatments. Continue to monitor for any worsening of the respiratory status or hydration. Thrombocytopenia, we'll be avoiding heparin. Nephrology is on the case, and managing dialysis, patient will undergo hemodialysis again tomorrow. Cardiology continues to follow. We will continue with supportive care, the overall prognosis remains poor. I performed an examination of the patient and discussed their management with the nurse practitioner. I have reviewed the nurse practitioner's note and agree with the documented findings and plan of care.
[2016-09-04 10:45] LABS: Free Kappa Lt Chain Qnt, Serum 4.27 mg/dL (0.33 - 1.94); Kappa/Lambda Light Chain Ratio 1.98 (0.26 - 1.65)
[2016-09-04 12:12] LABS: Glucose,Whole Blood 101 mg/dL (75-99)
[2016-09-04 17:00] LABS: Glucose,Whole Blood 86 mg/dL (75-99)
[2016-09-04] MEDS: LEVOFLOXACIN 250 MG TAB PO SCH (17:18)
[2016-09-04 21:03] LABS: Glucose,Whole Blood 106 mg/dL (75-99)
[2016-09-04] MEDS: ATORVASTATIN 10 MG TAB PO SCH (21:22)
[2016-09-05 05:39] LABS: Glucose,Whole Blood 77 mg/dL (75-99)
[2016-09-05] MEDS: INSULIN LISPRO (humaLOG) 300 UNIT/3 ML VIAL SQ SCH ×4 (05:49→20:39)
[2016-09-05 06:18] LABS: CH 29.4; CHCM 33.3; HCT 35.4 % (39.0-53.0); HGB 11.8 gm/dL (13.0-17.5); MCH 29.4 pg (25.0-35.0); MCHC 33.3 g/dL (31.0-37.0); MCV 88.5 fL (80.0-100.0); Mean Platelet Volume 9.1; RDW 14.7 % (11.5-15.5); WBC 16.8 k/uL (3.8-10.6)
[2016-09-05 06:26] LABS: Potassium 3.5 mmol/L (3.5-5.1); Total Bilirubin 1.9 mg/dL (0.2-1.3); Total Protein 4.6 g/dL (6.3-8.2)
[2016-09-05] MEDS: PANTOPRAZOLE 40 MG TABLET PO SCH (06:47)
--- NOTE | 2016-09-05 07:22 | PN ---
DATE OF SERVICE: 09/04/2016 Reason for followup is Pseudomonas tracheobronchitis/pneumonia. INTERVAL HISTORY: The patient is afebrile. Has been breathing comfortably. Denies any significant chest pain. Occasional cough. No abdominal pain. No nausea, vomiting or any diarrhea. On examination, blood pressure is 119/78 with a pulse of 70, temperature 96.5. He is 99% on 1 L nasal cannula. General description is an elderly male, lying in bed in no distress. RESPIRATORY SYSTEM: Unlabored breathing. Clear to auscultation anteriorly. HEART: S1, S2 regular rate and rhythm. ABDOMEN: Soft, no tenderness. LABS: No new labs have been obtained today. DIAGNOSTIC IMPRESSION AND PLAN: 1. Patient with pseudomonas positive sputum culture with a question of possible tracheobronchitis versus ( ) pneumonia. Currently responding to Levaquin. Continue for another 5 to 7 days to finish course of therapy. 2. Patient with leukocytosis more likely steroid effect that was showing a downward trend as of yesterday. No CBC was done today. present at beside. Questions were answered.
[2016-09-05] MEDS ORDERED: MIDODRINE 5 MG TAB PO STA ×2 (08:18→21:17)
[2016-09-05 09:10] LABS: Hepatitis B Surface Ag Index 0.07
--- NOTE | 2016-09-05 09:48 | PN ---
Patient is seen for followup for acute kidney injury on top of chronic kidney disease. He is currently maintained on dialysis mainly for cardiorenal syndrome and fluid overload. Patient has had good urine output over the last few days. He is maintained on Lasix as well but he has significant swelling for which he is being dialyzed daily. Last 24 hour urine output was at 900 mL. The patient's weight is significantly down by about 3 kg, if this is accurate from yesterday. On examination, patient is comfortable. Blood pressure has been running on the lower side 93/49, heart rate 74 per minute. He is afebrile. EXAMINATION OF THE HEART: S1, S2. EXAMINATION OF THE LUNGS: Decreased breath sounds in bases. ABDOMEN: Soft, nontender. Examination of lower extremities shows edema 3+ bilaterally with severe scrotal edema. There is hematoma in the right groin which appears to be stable. Labs show potassium 3.5, sodium 137. ASSESSMENT: 1. Acute kidney injury currently maintained on dialysis for severe cardiorenal syndrome and severe volume overload. 2. Severe volume overload, slowly improving. Continue with the Lasix and we will also arrange for dialysis again tomorrow. Patient's volume status has improved. 3. Generalized debility. 4. Protein calorie malnutrition. Albumin is at 2.3. Patient is encouraged to increase his oral intake particularly protein. 5. Anemia with history of bleeding at the site of the femoral catheter currently improved. He currently has a hematoma in the right femoral region where the Titus catheter was initially placed. PLAN: Repeat dialysis tomorrow. Continue with Lasix. Encourage increased oral intake.
[2016-09-05] MEDS: methylPREDNISolone SOD SUCCI 40 MG/ML 1 ML VIAL IV SCH ×2 (10:06→20:32)
[2016-09-05] MEDS: FUROSEMIDE 10 MG/ML 10 ML VIAL IV SCH ×4 (10:06→21:05)
[2016-09-05] MEDS: DORZOLAMIDE-TIMOLOL 2-0.5% DROPS 10 ML BTL BOTH EYES SCH ×2 (10:06→20:31)
[2016-09-05] MEDS: MULTIVITAMINS, THERA 1 EACH TAB PO SCH (10:06)
[2016-09-05] MEDS: DONEPEZIL 5 MG TAB PO SCH (10:07)
[2016-09-05] MEDS: METOPROLOL SUCCINATE (ER) 50 MG TAB.ER.24H PO SCH (10:07)
[2016-09-05] MEDS: AMIODARONE 200 MG TAB PO SCH ×3 (10:07→21:06)
[2016-09-05] MEDS: NYSTATIN 100,000 UNIT/ML SUSP 500,000 UNIT/5 ML CUP PO SCH ×4 (10:08→22:04)
[2016-09-05] MEDS: MEGESTROL 400 MG/10 ML CUP PO SCH (10:08)
[2016-09-05] MEDS: INSULIN DETEMIR 100 UNIT/ML 10 ML VIAL SQ SCH (10:17)
[2016-09-05] MEDS ORDERED: HEPARIN SODIUM,PORCINE 5,000 UNIT/ML 1 ML VIAL ONE (10:30)
--- NOTE | 2016-09-05 10:37 | P.PN ---
Subjective Principal diagnosis: Acute exacerbation of CHF Interval history since last pulmonary progress note: The patient being reevaluated and examined today at bedside on the selective care unit. Patient is currently undergoing dialysis. Patient states he is feeling better overall breathing has improved, dyspnea has improved, he is using his oxygen time, has continued coughing with small yellow sputum production. Patient was found to have influenza B pneumonia, as well as Pseudomonas pneumonia. He has completed Tamiflu. The patient continues with dialysis, dialysis nurse present and states the goal is to pull off 2.5 L today. The patient's ejection fraction is 10-15% . The patient has multiple comorbidities and his prognosis is highly guarded. Objective - Vital Signs Vital signs: Vital Signs Temp 97.1 F L 09/05/16 08:00 Pulse 74 09/05/16 08:00 Resp 18 09/05/16 08:00 BP 92/54 09/05/16 08:00 Pulse Ox 97 09/05/16 08:00 Intake & Output 09/04/16 09/05/16 09/05/16 18:59 06:59 18:59 Intake Total 1418 Output Total 200 400 Balance 1218 -400 Weight 57 kg 54 kg Intake: IV 718 .9 @ 10 708 Invasive Line 9 10 Oral 700 Output: Urine 200 400 Other: Voiding Method Indwelling Catheter Indwelling Catheter Indwelling Catheter # Bowel Movements 1 1 - Exam GENERAL EXAM: Alert, active, comfortable in no apparent distress. HEAD: Normocephalic. EYES: Normal reaction of pupils, equal size. NOSE: Clear with pink turbinates. THROAT: No erythema or exudates. NECK: No masses, no JVD. CHEST: No chest wall deformity. LUNGS: Bilaterally diminished and coarse, some faint wheezing noted CVS: S1 and S2 normal with no audible mumurs, regular rhythm. ABDOMEN: No hepatosplenomegaly, normal bowel sounds, no guarding or rigidity. SPINE: No scoliosis or deformity SKIN: No rashes CENTRAL NERVOUS SYSTEM: No focal deficits, tone is normal in all 4 extremities. - Labs CBC & Chem 7: 09/05/16 05:53 09/05/16 05:53 Labs: Abnormal Lab Results - Last 24 Hours (Table) 09/03/16 09/03/16 09/04/16 Range/Units 06:09 06:09 11:56 WBC (3.8-10.6) k/uL RBC (4.30-5.90) m/uL Hgb (13.0-17.5) gm/dL Hct (39.0-53.0) % Plt Count (150-450) k/uL BUN (9-20) mg/dL Creatinine (0.66-1.25) mg/dL POC Glucose (mg/dL) 101 H (75-99) mg/dL Calcium (8.4-10.2) mg/dL Total Bilirubin (0.2-1.3) mg/dL Total Protein (6.3-8.2) g/dL Total Protein (PEP) 5.4 L (6.2-8.2) g/dL Albumin (3.5-5.0) g/dL Albumin (PEP) 2.43 L (3.80-4.90) g/dL Xhstm-3-Mhxnbbuhf 1.11 H (0.60-1.00) g/dL RBC Folate 968 H (280 - 791) ng/mL Free Marion LC, Quant 4.27 H (0.33 - 1.94) mg/dL Free Marion/Lambda Ratio 1.98 H (0.26 - 1.65) 09/04/16 09/05/16 09/05/16 Range/Units 21:01 05:53 05:53 WBC 16.8 H (3.8-10.6) k/uL RBC 4.00 L (4.30-5.90) m/uL Hgb 11.8 L (13.0-17.5) gm/dL Hct 35.4 L (39.0-53.0) % Plt Count 42 L* (150-450) k/uL BUN 69 H (9-20) mg/dL Creatinine 3.40 H (0.66-1.25) mg/dL POC Glucose (mg/dL) 106 H (75-99) mg/dL Calcium 8.0 L (8.4-10.2) mg/dL Total Bilirubin 1.9 H (0.2-1.3) mg/dL Total Protein 4.6 L (6.3-8.2) g/dL Total Protein (PEP) (6.2-8.2) g/dL Albumin 2.3 L (3.5-5.0) g/dL Albumin (PEP) (3.80-4.90) g/dL Euoiv-4-Plojrbdub (0.60-1.00) g/dL RBC Folate (280 - 791) ng/mL Free Marion LC, Quant (0.33 - 1.94) mg/dL Free Marion/Lambda Ratio (0.26 - 1.65) Assessment and Plan Plan: Assessment #1 acute hypoxic respiratory failure #2 acute exacerbation of CHF, with small bilateral pleural effusions #3 influenza B pneumonia #4 secondary bacterial pneumonia #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 O2 is to maintain at greater saturation of greater than 88%, continue on antibiotics. Tamiflu course is completed. Continue gentle hydration. Continue with nebulizer treatments. Continue to monitor for any worsening of the respiratory status or hydration. Nephrology is on the case, and managing dialysis, patient will undergo hemodialysis again tomorrow. Cardiology continues to follow. We will continue with supportive care, the overall prognosis remains poor. I performed an examination of the patient and discussed their management with the nurse practitioner. I have reviewed the nurse practitioner's note and agree with the documented findings and plan of care.
[2016-09-05 12:06] LABS: Glucose,Whole Blood 73 mg/dL (75-99)
[2016-09-05] MEDS: FORMOTEROL FUMARATE 20 MCG/2 ML NEBU INHALATION SCH ×2 (12:19→20:05)
[2016-09-05] MEDS: IPRATROPIUM-ALBUTEROL 3 ML NEB INHALATION SCH ×4 (12:19→20:05)
[2016-09-05] MEDS: BUDESONIDE 1 MG/2 ML NEBU INHALATION SCH ×2 (12:19→20:05)
--- NOTE | 2016-09-05 15:52 | P.PN ---
Subjective Principal diagnosis: Generalized weakness. This is a 81-year-old white male essentially admitted for pneumonia and diagnosed with influenza B and acute on chronic renal failure with cardiorenal syndrome. The patient has been tolerating dialysis and has had significant amount of fluid removed. He had dialysis today and is significantly weak but slowly improving. Prognosis is guarded secondary to his poor ejection fraction. I'm hopeful for possible transfer to rehab early next week and Dr. Tru bobo will be covering for the weekend. Objective - Vital Signs Vital signs: Vital Signs Temp 97.1 F L 09/05/16 08:00 Pulse 64 09/05/16 12:30 Resp 18 09/05/16 12:00 BP 96/54 09/05/16 12:00 Pulse Ox 98 09/05/16 12:00 Intake & Output 09/04/16 09/05/16 09/05/16 18:59 06:59 18:59 Intake Total 1418 320 Output Total 200 400 Balance 1218 -400 320 Weight 57 kg 54 kg Intake: IV 718 80 .9 @ 10 708 80 Invasive Line 9 10 Oral 700 240 Output: Urine 200 400 Other: Voiding Method Indwelling Catheter Indwelling Catheter Indwelling Catheter # Bowel Movements 1 1 - Constitutional General appearance: Present: thin - EENT Eyes: Absent: abnormal pupil - Respiratory Respiratory: bilateral: CTA - Cardiovascular Rhythm: regular Heart sounds: normal: S1, S2 - Gastrointestinal General gastrointestinal: Present: soft. Absent: tenderness - Genitourinary Male genitourinary: scrotal edema - Psychiatric Psychiatric: Present: A&O x's 3 - Labs CBC & Chem 7: 09/05/16 05:53 09/05/16 05:53 Labs: Abnormal Lab Results - Last 24 Hours (Table) 09/03/16 09/03/16 09/04/16 Range/Units 06:09 06:09 21:01 WBC (3.8-10.6) k/uL RBC (4.30-5.90) m/uL Hgb (13.0-17.5) gm/dL Hct (39.0-53.0) % Plt Count (150-450) k/uL BUN (9-20) mg/dL Creatinine (0.66-1.25) mg/dL POC Glucose (mg/dL) 106 H (75-99) mg/dL Calcium (8.4-10.2) mg/dL Total Bilirubin (0.2-1.3) mg/dL Total Protein (6.3-8.2) g/dL Total Protein (PEP) 5.4 L (6.2-8.2) g/dL Albumin (3.5-5.0) g/dL Albumin (PEP) 2.43 L (3.80-4.90) g/dL Ltonq-7-Zidpspekr 1.11 H (0.60-1.00) g/dL RBC Folate 968 H (280 - 791) ng/mL Free [place] LC, Quant 4.27 H (0.33 - 1.94) mg/dL Free [place]/Lambda Ratio 1.98 H (0.26 - 1.65) 09/05/16 09/05/16 09/05/16 Range/Units 05:53 05:53 11:55 WBC 16.8 H (3.8-10.6) k/uL RBC 4.00 L (4.30-5.90) m/uL Hgb 11.8 L (13.0-17.5) gm/dL Hct 35.4 L (39.0-53.0) % Plt Count 42 L* (150-450) k/uL BUN 69 H (9-20) mg/dL Creatinine 3.40 H (0.66-1.25) mg/dL POC Glucose (mg/dL) 73 L (75-99) mg/dL Calcium 8.0 L (8.4-10.2) mg/dL Total Bilirubin 1.9 H (0.2-1.3) mg/dL Total Protein 4.6 L (6.3-8.2) g/dL Total Protein (PEP) (6.2-8.2) g/dL Albumin 2.3 L (3.5-5.0) g/dL Albumin (PEP) (3.80-4.90) g/dL Onlqt-4-Tfheliyji (0.60-1.00) g/dL RBC Folate (280 - 791) ng/mL Free [place] LC, Quant (0.33 - 1.94) mg/dL Free [place]/Lambda Ratio (0.26 - 1.65) Assessment and Plan (1) Afib Status: Acute (2) Bronchospasm with bronchitis, acute Status: Acute (3) Dyspnea Status: Acute (4) AICD (automatic cardioverter/defibrillator) present Status: Acute (5) Diabetes Status: Acute (6) Influenza B Status: Acute (7) Acute renal failure Status: Acute Plan: Continue current regimen of dialysis. Check CMP in a.m. ThromboCytopenia-multifactorial. Dr. Ott covering for the weekend. I'm hopeful for discharge in the next 72 hours if stabilizing and dialysis is improving the patient's status. Time with Patient: Less than 30
[2016-09-05 16:49] LABS: Glucose,Whole Blood 155 mg/dL (75-99)
--- NOTE | 2016-09-05 19:08 | PN ---
DATE OF SERVICE: 09/05/2016 REASON FOR FOLLOWUP: 1. Pseudomonas tracheobronchitis. 2. Persistent elevated white count. INTERVAL HISTORY: The patient is afebrile. He has been breathing comfortably. Denies significant chest pain. Occasional cough. No abdominal pain or any diarrhea. On examination, blood pressure is 96/54 with a pulse of 64, temperature 98. He is 98% on room air. General description is an elderly male lying in bed in no distress. RESPIRATORY SYSTEM: Unlabored breathing. Some coarse breath sounds at the bases. No wheeze. HEART: S1, S2. Regular rate and rhythm. ABDOMEN: Soft. No tenderness. LABS: White count down to 16.8. BUN of 69, creatinine 3.40. DIAGNOSTIC IMPRESSION AND PLAN: 1. Patient with a positive sputum culture with Pseudomonas aeruginosa, more likely a tracheobronchitis/mild pneumonia, clinically doing well on Levaquin. Continue for another 5 to 6 days to finish course of therapy. 2. Elevated white count; steroid effect; already showing a downward trend. Continue supportive care.
[2016-09-05] MEDS: ATORVASTATIN 10 MG TAB PO SCH (20:31)
[2016-09-05 20:42] LABS: Glucose,Whole Blood 152 mg/dL (75-99)
[2016-09-05] MEDS ORDERED: SODIUM CHLORIDE 0.9% 250 ML IV ONE (21:15)
[2016-09-05] MEDS: SODIUM CHLORIDE 0.9% 250 ML IV SCH (22:32)
[2016-09-06 06:32] LABS: Glucose,Whole Blood 179 mg/dL (75-99)
[2016-09-06] MEDS: INSULIN LISPRO (humaLOG) 300 UNIT/3 ML VIAL SQ SCH ×4 (06:42→22:32)
[2016-09-06] MEDS: PANTOPRAZOLE 40 MG TABLET PO SCH (06:43)
--- NOTE | 2016-09-06 08:01 | P.PN ---
Subjective Principal diagnosis: Acute exacerbation of CHF Interval history since last pulmonary progress note: The patient being reevaluated and examined today at bedside on the selective care unit. Patient is currently undergoing dialysis. Patient states he is feeling better overall breathing has improved, dyspnea has improved, he is using his oxygen time, has continued coughing with small yellow sputum production. Patient was found to have influenza B pneumonia, as well as Pseudomonas pneumonia. He has completed Tamiflu. The patient continues with dialysis, he had 2.5 L taken off yesterday. The patient's ejection fraction is 10-15%. The patient has multiple comorbidities and his prognosis is highly guarded. Objective - Vital Signs Vital signs: Vital Signs Temp 97.1 F L 09/05/16 20:00 Pulse 63 09/06/16 04:00 Resp 14 09/06/16 04:00 BP 91/53 09/06/16 04:00 Pulse Ox 98 09/06/16 04:00 Intake & Output 09/05/16 09/06/16 09/06/16 18:59 06:59 18:59 Intake Total 560 200 Output Total 500 100 Balance 60 200 -100 Weight 57.5 kg Intake: IV 80 .9 @ 10 80 Oral 480 200 Output: Urine 500 100 Other: Voiding Method Indwelling Catheter Indwelling Catheter # Bowel Movements 0 - Exam GENERAL EXAM: Alert, active, comfortable in no apparent distress. HEAD: Normocephalic. EYES: Normal reaction of pupils, equal size. NOSE: Clear with pink turbinates. THROAT: No erythema or exudates. NECK: No masses, no JVD. CHEST: No chest wall deformity. LUNGS: Bilaterally diminished and coarse, some faint wheezing noted CVS: S1 and S2 normal with no audible mumurs, regular rhythm. ABDOMEN: No hepatosplenomegaly, normal bowel sounds, no guarding or rigidity. SPINE: No scoliosis or deformity SKIN: No rashes CENTRAL NERVOUS SYSTEM: No focal deficits, tone is normal in all 4 extremities. - Labs CBC & Chem 7: 09/05/16 05:53 09/05/16 05:53 Labs: Abnormal Lab Results - Last 24 Hours (Table) 09/03/16 09/05/16 09/05/16 Range/Units 06:09 11:55 16:44 POC Glucose (mg/dL) 73 L 155 H (75-99) mg/dL Total Protein (PEP) 5.4 L (6.2-8.2) g/dL Albumin (PEP) 2.43 L (3.80-4.90) g/dL Bfjri-3-Rhgzjnwij 1.11 H (0.60-1.00) g/dL 09/05/16 09/06/16 Range/Units 20:38 06:31 POC Glucose (mg/dL) 152 H 179 H (75-99) mg/dL Total Protein (PEP) (6.2-8.2) g/dL Albumin (PEP) (3.80-4.90) g/dL Nveob-3-Xqebsnqty (0.60-1.00) g/dL Assessment and Plan Plan: Assessment #1 acute hypoxic respiratory failure #2 acute exacerbation of CHF, with small bilateral pleural effusions #3 influenza B pneumonia #4 secondary bacterial pneumonia #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 O2 is to maintain at greater saturation of greater than 88%, continue on antibiotics. Tamiflu course is completed. Continue gentle hydration. Continue with nebulizer treatments. Continue to monitor for any worsening of the respiratory status or hydration. Nephrology is on the case, and managing dialysis, patient will undergo hemodialysis again tomorrow. Cardiology continues to follow. We will continue with supportive care, the overall prognosis remains poor. I performed an examination of the patient and discussed their management with the nurse practitioner. I have reviewed the nurse practitioner's note and agree with the documented findings and plan of care.
[2016-09-06 08:04] LABS: CH 29.5; CHCM 33.3; HDW 2.61; HGB 10.8 gm/dL (13.0-17.5); MCH 30.1 pg (25.0-35.0); MCHC 33.7 g/dL (31.0-37.0); MCV 89.2 fL (80.0-100.0); Mean Platelet Volume 9.9; RBC 3.59 m/uL (4.30-5.90); RDW 15.1 % (11.5-15.5); WBC 12.5 k/uL (3.8-10.6)
[2016-09-06] MEDS: IPRATROPIUM-ALBUTEROL 3 ML NEB INHALATION SCH ×4 (08:06→20:29)
[2016-09-06] MEDS: FORMOTEROL FUMARATE 20 MCG/2 ML NEBU INHALATION SCH ×2 (08:06→20:53)
[2016-09-06] MEDS: BUDESONIDE 1 MG/2 ML NEBU INHALATION SCH ×2 (08:06→20:53)
[2016-09-06 08:29] LABS: Calcium 7.9 mg/dL (8.4-10.2); Potassium 4.1 mmol/L (3.5-5.1)
[2016-09-06] MEDS: MEGESTROL 400 MG/10 ML CUP PO SCH (09:18)
[2016-09-06] MEDS: NYSTATIN 100,000 UNIT/ML SUSP 500,000 UNIT/5 ML CUP PO SCH ×4 (09:18→20:58)
[2016-09-06] MEDS: METOPROLOL SUCCINATE (ER) 50 MG TAB.ER.24H PO SCH ×2 (09:19→09:39)
[2016-09-06] MEDS: methylPREDNISolone SOD SUCCI 40 MG/ML 1 ML VIAL IV SCH ×2 (09:19→22:32)
[2016-09-06] MEDS: DONEPEZIL 5 MG TAB PO SCH (09:19)
[2016-09-06] MEDS: DORZOLAMIDE-TIMOLOL 2-0.5% DROPS 10 ML BTL BOTH EYES SCH ×2 (09:19→20:58)
[2016-09-06] MEDS: AMIODARONE 200 MG TAB PO SCH ×2 (09:19→20:58)
[2016-09-06] MEDS: FUROSEMIDE 10 MG/ML 10 ML VIAL IV SCH ×2 (09:20→21:01)
[2016-09-06] MEDS: MULTIVITAMINS, THERA 1 EACH TAB PO SCH (09:20)
[2016-09-06] MEDS ORDERED: MIDODRINE 5 MG TAB PO STA (10:21)
--- NOTE | 2016-09-06 10:52 | P.PN ---
Subjective Patient is seen in follow-up for acute kidney injury. He's currently dialysis dependent due to cardiorenal syndrome and fluid overload. His last hemodialysis was yesterday. He does have systolic CHF with ejection fraction less than 20%. Currently resting in bed. Dyspnea is improved. Urine output about 500 mL over the last 24 hours. Denies any active chest pain. No vomiting or diarrhea. Vital signs are stable. General: The patient appeared well nourished and normally developed. HEENT: Head exam is unremarkable. Neck is without jugular venous distension. LUNGS: Lungs are clear to auscultation and percussion. Breath sounds decreased. HEART: Rate and Rhythm are regular. First and second heart sounds normal. No murmurs, rubs or gallops. ABDOMEN: Abdominal exam reveals normal bowel sounds. Non-tender and non- distended. No evidence of peritonitis. EXTREMITITES: !+ edema. Objective - Vital Signs Vital signs: Vital Signs Temp 97.1 F L 09/05/16 20:00 Pulse 76 09/06/16 08:30 Resp 14 09/06/16 04:00 BP 91/53 09/06/16 04:00 Pulse Ox 98 09/06/16 04:00 Intake & Output 09/05/16 09/06/16 09/06/16 18:59 06:59 18:59 Intake Total 560 200 150 Output Total 500 100 Balance 60 200 50 Weight 57.5 kg Intake: IV 80 .9 @ 10 80 Oral 480 200 150 Output: Urine 500 100 Other: Voiding Method Indwelling Catheter Indwelling Catheter # Bowel Movements 0 - Labs CBC & Chem 7: 09/06/16 07:41 09/06/16 07:41 Labs: Abnormal Lab Results - Last 24 Hours (Table) 09/05/16 09/05/16 09/05/16 Range/Units 11:55 16:44 20:38 WBC (3.8-10.6) k/uL RBC (4.30-5.90) m/uL Hgb (13.0-17.5) gm/dL Hct (39.0-53.0) % Plt Count (150-450) k/uL BUN (9-20) mg/dL Creatinine (0.66-1.25) mg/dL Glucose (74-99) mg/dL POC Glucose (mg/dL) 73 L 155 H 152 H (75-99) mg/dL Calcium (8.4-10.2) mg/dL 09/06/16 09/06/16 09/06/16 Range/Units 06:31 07:41 07:41 WBC 12.5 H (3.8-10.6) k/uL RBC 3.59 L (4.30-5.90) m/uL Hgb 10.8 L (13.0-17.5) gm/dL Hct 32.0 L (39.0-53.0) % Plt Count 42 L* (150-450) k/uL BUN 57 H (9-20) mg/dL Creatinine 3.34 H (0.66-1.25) mg/dL Glucose 196 H (74-99) mg/dL POC Glucose (mg/dL) 179 H (75-99) mg/dL Calcium 7.9 L (8.4-10.2) mg/dL Assessment and Plan Plan: Assessment: #1. Nonoliguric acute kidney injury secondary to cardiorenal syndrome. Currently hemodialysis dependent. #2. Chronic kidney disease stage III with baseline creatinine near 1.6 secondary to nephrosclerosis and cardiorenal syndrome. Urinalysis is quite benign. #3. Influenza pneumonia. sputum culture also positive for Pseudomonas. #4. Systolic CHF with ejection fraction of less than 20%. Compensated. No evidence of gross fluid overload on chest x-ray. #5. Hypervolemic hyponatremia. Resolved. #6. Metabolic acidosis secondary to acute kidney injury. Improved with dialysis. Plan: Last hemodialysis was on September 05. He became quite hypotensive although 2-1/2 L were removed. He is still hypotensive this morning so will hold off on hemodialysis today. Continue to monitor urine output closely. Maintain Lasix. Add Midodrine 5 mg 3 times daily.
[2016-09-06] MEDS: INSULIN DETEMIR 100 UNIT/ML 10 ML VIAL SQ SCH (11:10)
[2016-09-06 12:06] LABS: Glucose,Whole Blood 316 mg/dL (75-99)
[2016-09-06] MEDS: LEVOFLOXACIN 250 MG TAB PO SCH (17:02)
[2016-09-06] MEDS: MIDODRINE 5 MG TAB PO SCH (17:02)
[2016-09-06 17:27] LABS: Glucose,Whole Blood 421 mg/dL (75-99)
[2016-09-06] MEDS: ATORVASTATIN 10 MG TAB PO SCH (20:58)
[2016-09-06 21:54] LABS: Glucose,Whole Blood 455 mg/dL (75-99)
[2016-09-07 06:06] LABS: Glucose,Whole Blood 442 mg/dL (75-99)
[2016-09-07] MEDS ORDERED: INSULIN LISPRO (humaLOG) 300 UNIT/3 ML VIAL SQ ONE (06:25)
[2016-09-07 06:39] LABS: Basophils % (A) 0 %; CH 29.1; CHCM 31.8; Eosinophils % (A) 0 %; HCT 35.4 % (39.0-53.0); HDW 2.47; HGB 11.2 gm/dL (13.0-17.5); Luc # (Auto) 0.06; Luc % (Auto) 1; Lymphocytes # (A) 0.2 k/uL (1.0-4.8); Lymphocytes % (A) 2 %; MCHC 31.6 g/dL (31.0-37.0); Mean Platelet Volume 9.1; Monocytes # (A) 0.2 k/uL (0-1.0); Monocytes % (A) 2 %; Neutrophils # (A) 10.1 k/uL (1.3-7.7); Neutrophils % (A) 96 %; RBC 3.85 m/uL (4.30-5.90); RDW 15.1 % (11.5-15.5); WBC 10.6 k/uL (3.8-10.6)
[2016-09-07 06:52] LABS: Calcium 7.9 mg/dL (8.4-10.2); Potassium 4.4 mmol/L (3.5-5.1); Total Bilirubin 1.5 mg/dL (0.2-1.3)
[2016-09-07] MEDS: INSULIN LISPRO (humaLOG) 300 UNIT/3 ML VIAL SQ SCH ×7 (06:56→21:29)
[2016-09-07] MEDS: PANTOPRAZOLE 40 MG TABLET PO SCH (06:57)
[2016-09-07] MEDS: MIDODRINE 5 MG TAB PO SCH ×3 (06:57→16:56)
[2016-09-07] MEDS: IPRATROPIUM-ALBUTEROL 3 ML NEB INHALATION SCH ×4 (07:31→20:19)
--- NOTE | 2016-09-07 07:36 | PN ---
DATE OF SERVICE: 09/06/2016 Reason for follow-up is pseudomonas tracheobronchitis/pneumonia. INTERVAL HISTORY: The patient is afebrile. He has been breathing more comfortably. Occasional cough. Denies any chest pain, no abdominal pain or any diarrhea. On examination blood pressure is 114/79 with a pulse of 72, temperature 98. He is 98% on room air. General description is an elderly male lying in bed in no distress. RESPIRATORY SYSTEM: Unlabored breathing, some decreased breath sounds in the base. No wheeze. HEART: S1, S2. Regular rate and rhythm. ABDOMEN: Soft, no tenderness. LABS: Hemoglobin is 10.8, white count 12.5 with the BUN of 57, creatinine 3.34. DIAGNOSTIC IMPRESSION AND PLAN: 1. Patient with pseudomonas tracheobronchitis/pneumonia with significant overall clinical improvement currently on p.o. Levaquin. She will continue on this to finish course of therapy. 2. Patient with elevated white count which is already down to 12,000, more likely steroid effect and showing a downward trend once steroid has been decreased. preset at beside. Their questions were answered.
[2016-09-07] MEDS: methylPREDNISolone SOD SUCCI 40 MG/ML 1 ML VIAL IV SCH ×2 (08:07→21:30)
[2016-09-07] MEDS: DORZOLAMIDE-TIMOLOL 2-0.5% DROPS 10 ML BTL BOTH EYES SCH ×2 (08:08→21:29)
[2016-09-07] MEDS: MEGESTROL 400 MG/10 ML CUP PO SCH (08:08)
[2016-09-07] MEDS: FUROSEMIDE 10 MG/ML 10 ML VIAL IV SCH ×2 (08:08→21:29)
[2016-09-07] MEDS: NYSTATIN 100,000 UNIT/ML SUSP 500,000 UNIT/5 ML CUP PO SCH ×4 (08:08→21:30)
[2016-09-07] MEDS: DONEPEZIL 5 MG TAB PO SCH (08:09)
[2016-09-07] MEDS: METOPROLOL SUCCINATE (ER) 50 MG TAB.ER.24H PO SCH (08:09)
[2016-09-07] MEDS: MULTIVITAMINS, THERA 1 EACH TAB PO SCH (08:09)
[2016-09-07] MEDS: AMIODARONE 200 MG TAB PO SCH ×2 (08:09→21:28)
[2016-09-07] MEDS: INSULIN DETEMIR 100 UNIT/ML 10 ML VIAL SQ SCH (08:09)
--- NOTE | 2016-09-07 08:55 | P.PN ---
Subjective Patient is seen in follow-up for acute kidney injury. He's currently dialysis dependent due to cardiorenal syndrome and fluid overload. His last hemodialysis was on September 05. He does have systolic CHF with ejection fraction less than 20%. Currently resting in bed. Dyspnea is improved. Urine output about 750 mL over the last 24 hours. Denies any active chest pain. No vomiting or diarrhea. Vital signs are stable. General: The patient appeared well nourished and normally developed. HEENT: Head exam is unremarkable. Neck is without jugular venous distension. LUNGS: Lungs are clear to auscultation and percussion. Breath sounds decreased. HEART: Rate and Rhythm are regular. First and second heart sounds normal. No murmurs, rubs or gallops. ABDOMEN: Abdominal exam reveals normal bowel sounds. Non-tender and non- distended. No evidence of peritonitis. EXTREMITITES: 1+ edema. Objective - Vital Signs Vital signs: Vital Signs Temp 98.0 F 09/07/16 04:00 Pulse 76 09/07/16 07:50 Resp 16 09/07/16 04:00 BP 98/63 09/07/16 04:00 Pulse Ox 97 09/07/16 04:00 Intake & Output 09/06/16 09/07/16 09/07/16 18:59 06:59 18:59 Intake Total 1380 90 120 Output Total 100 650 Balance 1280 -560 120 Weight 55.3 kg Intake: IV 90 90 .9 @ 10 90 90 Oral 1290 120 Output: Urine 100 650 Other: Voiding Method Indwelling Catheter Indwelling Catheter - Labs CBC & Chem 7: 09/07/16 06:18 09/07/16 06:18 Labs: Abnormal Lab Results - Last 24 Hours (Table) 09/06/16 09/06/16 09/06/16 Range/Units 12:04 16:44 21:52 RBC (4.30-5.90) m/uL Hgb (13.0-17.5) gm/dL Hct (39.0-53.0) % Plt Count (150-450) k/uL Neutrophils # (1.3-7.7) k/uL Lymphocytes # (1.0-4.8) k/uL Sodium (137-145) mmol/L Carbon Dioxide (22-30) mmol/L BUN (9-20) mg/dL Creatinine (0.66-1.25) mg/dL Glucose (74-99) mg/dL POC Glucose (mg/dL) 316 H 421 H 455 H (75-99) mg/dL Calcium (8.4-10.2) mg/dL Total Bilirubin (0.2-1.3) mg/dL Total Protein (6.3-8.2) g/dL Albumin (3.5-5.0) g/dL 09/07/16 09/07/16 09/07/16 Range/Units 06:03 06:18 06:18 RBC 3.85 L (4.30-5.90) m/uL Hgb 11.2 L (13.0-17.5) gm/dL Hct 35.4 L (39.0-53.0) % Plt Count 49 L* (150-450) k/uL Neutrophils # 10.1 H (1.3-7.7) k/uL Lymphocytes # 0.2 L (1.0-4.8) k/uL Sodium 134 L (137-145) mmol/L Carbon Dioxide 21 L (22-30) mmol/L BUN 71 H (9-20) mg/dL Creatinine 3.90 H (0.66-1.25) mg/dL Glucose 395 H (74-99) mg/dL POC Glucose (mg/dL) 442 H (75-99) mg/dL Calcium 7.9 L (8.4-10.2) mg/dL Total Bilirubin 1.5 H (0.2-1.3) mg/dL Total Protein 5.0 L (6.3-8.2) g/dL Albumin 2.4 L (3.5-5.0) g/dL Assessment and Plan Plan: Assessment: #1. Nonoliguric acute kidney injury secondary to cardiorenal syndrome. Currently hemodialysis dependent. #2. Chronic kidney disease stage III with baseline creatinine near 1.6 secondary to nephrosclerosis and cardiorenal syndrome. Urinalysis is quite benign. #3. Influenza pneumonia. sputum culture also positive for Pseudomonas. #4. Systolic CHF with ejection fraction of less than 20%. Compensated. No evidence of gross fluid overload on chest x-ray. #5. Hypervolemic hyponatremia. Resolved. #6. Metabolic acidosis secondary to acute kidney injury. Improved with dialysis. Plan: Last hemodialysis was on September 05. He became quite hypotensive although 2-1/2 L were removed. Dialysis held over the weekend due to hypotension. Clinically looking better today. Continue to monitor urine output closely. Maintain Lasix. Continue Midodrin. Dialysis tomorrow.
--- NOTE | 2016-09-07 10:11 | P.PN ---
Subjective Principal diagnosis: Acute exacerbation of CHF Interval history since last pulmonary progress note: The patient being reevaluated and examined today at bedside on the selective care unit. Patient is currently resting up in bedside chair. Patient states he is feeling better overall breathing has improved, dyspnea has improved, he is using his oxygen time, has continued coughing with scant yellow sputum production. Patient was found to have influenza B pneumonia, as well as Pseudomonas pneumonia. He has completed Tamiflu. The patient is being seen by nephrology however he did not get dialysis yesterday or today due to low blood pressures so he will have his next round of dialysis on Thursday. The patient's ejection fraction is 10-15%. The patient has multiple comorbidities and his prognosis is highly guarded. Objective - Vital Signs Vital signs: Vital Signs Temp 97.0 F L 09/07/16 08:00 Pulse 97 09/07/16 08:00 Resp 18 09/07/16 08:00 BP 102/67 09/07/16 08:00 Pulse Ox 97 09/07/16 08:00 Intake & Output 09/06/16 09/07/16 09/07/16 18:59 06:59 18:59 Intake Total 1380 90 120 Output Total 100 650 Balance 1280 -560 120 Weight 55.3 kg Intake: IV 90 90 .9 @ 10 90 90 Oral 1290 120 Output: Urine 100 650 Other: Voiding Method Indwelling Catheter Indwelling Catheter Indwelling Catheter - Exam GENERAL EXAM: Alert, active, comfortable in no apparent distress. HEAD: Normocephalic. EYES: Normal reaction of pupils, equal size. NOSE: Clear with pink turbinates. THROAT: No erythema or exudates. NECK: No masses, no JVD. CHEST: No chest wall deformity. LUNGS: Bilaterally diminished and coarse, some faint wheezing noted CVS: S1 and S2 normal with no audible mumurs, regular rhythm. ABDOMEN: No hepatosplenomegaly, normal bowel sounds, no guarding or rigidity. SPINE: No scoliosis or deformity SKIN: No rashes CENTRAL NERVOUS SYSTEM: No focal deficits, tone is normal in all 4 extremities. - Labs CBC & Chem 7: 09/07/16 06:18 09/07/16 06:18 Labs: Abnormal Lab Results - Last 24 Hours (Table) 09/06/16 09/06/16 09/06/16 Range/Units 12:04 16:44 21:52 RBC (4.30-5.90) m/uL Hgb (13.0-17.5) gm/dL Hct (39.0-53.0) % Plt Count (150-450) k/uL Neutrophils # (1.3-7.7) k/uL Lymphocytes # (1.0-4.8) k/uL Sodium (137-145) mmol/L Carbon Dioxide (22-30) mmol/L BUN (9-20) mg/dL Creatinine (0.66-1.25) mg/dL Glucose (74-99) mg/dL POC Glucose (mg/dL) 316 H 421 H 455 H (75-99) mg/dL Calcium (8.4-10.2) mg/dL Total Bilirubin (0.2-1.3) mg/dL Total Protein (6.3-8.2) g/dL Albumin (3.5-5.0) g/dL 09/07/16 09/07/16 09/07/16 Range/Units 06:03 06:18 06:18 RBC 3.85 L (4.30-5.90) m/uL Hgb 11.2 L (13.0-17.5) gm/dL Hct 35.4 L (39.0-53.0) % Plt Count 49 L* (150-450) k/uL Neutrophils # 10.1 H (1.3-7.7) k/uL Lymphocytes # 0.2 L (1.0-4.8) k/uL Sodium 134 L (137-145) mmol/L Carbon Dioxide 21 L (22-30) mmol/L BUN 71 H (9-20) mg/dL Creatinine 3.90 H (0.66-1.25) mg/dL Glucose 395 H (74-99) mg/dL POC Glucose (mg/dL) 442 H (75-99) mg/dL Calcium 7.9 L (8.4-10.2) mg/dL Total Bilirubin 1.5 H (0.2-1.3) mg/dL Total Protein 5.0 L (6.3-8.2) g/dL Albumin 2.4 L (3.5-5.0) g/dL Assessment and Plan Plan: Assessment #1 acute hypoxic respiratory failure #2 acute exacerbation of CHF, with small bilateral pleural effusions #3 influenza B pneumonia #4 secondary bacterial pneumonia #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 O2 is to maintain at greater saturation of greater than 88%, continue on antibiotics. Tamiflu course is completed. Continue gentle hydration. Continue with nebulizer treatments. Continue to monitor for any worsening of the respiratory status or hydration. The patient did receive 80 mg of Lasix and has had some urine output. Nephrology is on the case, and managing dialysis, patient will undergo hemodialysis again tomorrow. We will continue with supportive care, the overall prognosis remains poor. I performed an examination of the patient and discussed their management with the nurse practitioner. I have reviewed the nurse practitioner's note and agree with the documented findings and plan of care.
[2016-09-07 11:55] LABS: Glucose,Whole Blood 403 mg/dL (75-99)
[2016-09-07 16:46] LABS: Glucose,Whole Blood 418 mg/dL (75-99)
[2016-09-07 21:08] LABS: Glucose,Whole Blood 371 mg/dL (75-99)
[2016-09-07] MEDS: ATORVASTATIN 10 MG TAB PO SCH (21:28)
--- NOTE | 2016-09-07 22:58 | P.PN ---
Subjective The pt is quite drowsy, but arousable. LE swelling is improved. No active bleeding from central line sites Objective - Vital Signs Vital signs: Vital Signs Temp 97.0 F L 09/07/16 16:00 Pulse 88 09/07/16 20:30 Resp 16 09/07/16 16:00 BP 114/67 09/07/16 16:00 Pulse Ox 98 09/07/16 16:00 Intake & Output 09/07/16 09/07/16 09/08/16 06:59 18:59 06:59 Intake Total 90 800 Output Total 650 300 Balance -560 800 -300 Weight 55.3 kg Intake: IV 90 80 .9 @ 10 90 80 Oral 720 Output: Urine 650 300 Other: Voiding Method Indwelling Catheter Indwelling Catheter - Constitutional General appearance: Present: no acute distress - EENT Eyes: Present: PERRLA ENT: Present: normal oropharynx - Respiratory Respiratory: bilateral: diminished - Cardiovascular Rhythm: regular Heart sounds: normal: S1, S2 - Gastrointestinal General gastrointestinal: Present: normal bowel sounds, soft - Integumentary Integumentary: Present: normal - Musculoskeletal Musculoskeletal: Present: generalized weakness, strength equal bilaterally - Labs CBC & Chem 7: 09/07/16 06:18 09/07/16 06:18 Labs: Abnormal Lab Results - Last 24 Hours (Table) 09/07/16 09/07/16 09/07/16 Range/Units 06:03 06:18 06:18 RBC 3.85 L (4.30-5.90) m/uL Hgb 11.2 L (13.0-17.5) gm/dL Hct 35.4 L (39.0-53.0) % Plt Count 49 L* (150-450) k/uL Neutrophils # 10.1 H (1.3-7.7) k/uL Lymphocytes # 0.2 L (1.0-4.8) k/uL Sodium 134 L (137-145) mmol/L Carbon Dioxide 21 L (22-30) mmol/L BUN 71 H (9-20) mg/dL Creatinine 3.90 H (0.66-1.25) mg/dL Glucose 395 H (74-99) mg/dL POC Glucose (mg/dL) 442 H (75-99) mg/dL Calcium 7.9 L (8.4-10.2) mg/dL Total Bilirubin 1.5 H (0.2-1.3) mg/dL Total Protein 5.0 L (6.3-8.2) g/dL Albumin 2.4 L (3.5-5.0) g/dL 09/07/16 09/07/16 09/07/16 Range/Units 11:50 16:45 21:05 RBC (4.30-5.90) m/uL Hgb (13.0-17.5) gm/dL Hct (39.0-53.0) % Plt Count (150-450) k/uL Neutrophils # (1.3-7.7) k/uL Lymphocytes # (1.0-4.8) k/uL Sodium (137-145) mmol/L Carbon Dioxide (22-30) mmol/L BUN (9-20) mg/dL Creatinine (0.66-1.25) mg/dL Glucose (74-99) mg/dL POC Glucose (mg/dL) 403 H 418 H 371 H (75-99) mg/dL Calcium (8.4-10.2) mg/dL Total Bilirubin (0.2-1.3) mg/dL Total Protein (6.3-8.2) g/dL Albumin (3.5-5.0) g/dL Assessment and Plan (1) Thrombocytopenia Narrative/Plan: Lab w/u was negative for causes of thrombocytopenia. His plt are slowly improving. He has a mild chronic thrombocytopenia at baseline. THis is likely due to an early MDS, given negative labs, and his age. The current drop is due to sepsis, and CHF, and is expected to improve spontaneously as before. Hgb is in a safe range, with no major drop Femoral catheter was removed. Bleeding from the rt upper chest dialysis access has stopped. Can resume anticoagulation once plt are > 89947 Status: Acute (2) Leucocytosis Status: Acute
[2016-09-08 06:35] LABS: Glucose,Whole Blood 282 mg/dL (75-99)
[2016-09-08] MEDS: MIDODRINE 5 MG TAB PO SCH ×3 (06:56→17:26)
[2016-09-08] MEDS: PANTOPRAZOLE 40 MG TABLET PO SCH (06:57)
[2016-09-08] MEDS: INSULIN LISPRO (humaLOG) 300 UNIT/3 ML VIAL SQ SCH ×7 (06:57→21:59)
--- NOTE | 2016-09-08 07:25 | PN ---
DATE OF SERVICE: 09/07/2016 Reason for Follow-up pseudomonas tracheobronchitis/pneumonia. INTERVAL HISTORY: Patient is afebrile. He has been breathing comfortably. Denies significant chest pain, shortness of breath, no diarrhea. On examination, blood pressure 114/67 with a pulse of 90, temperature 97. He is 98% on room air. General description is an elderly male lying in bed in no distress. RESPIRATORY SYSTEM: Unlabored breathing. Clear to auscultation anteriorly. HEART: S1, S2. Regular rate and rhythm. ABDOMEN: Soft, no tenderness. LABS: Hemoglobin 11.1, white count 10.6 with a BUN of 31, creatinine 3.90. DIAGNOSTIC IMPRESSION AND PLAN: Patient with pseudomonas tracheobronchitis/pneumonia. The patient pond shown overall clinical improvement. His white count has normalized. Levaquin can be safely discontinued. Continue supportive care.
[2016-09-08] MEDS: DORZOLAMIDE-TIMOLOL 2-0.5% DROPS 10 ML BTL BOTH EYES SCH ×2 (08:21→21:59)
[2016-09-08] MEDS: MEGESTROL 400 MG/10 ML CUP PO SCH (08:21)
[2016-09-08] MEDS: AMIODARONE 200 MG TAB PO SCH ×2 (08:21→21:58)
[2016-09-08] MEDS: INSULIN DETEMIR 100 UNIT/ML 10 ML VIAL SQ SCH (08:21)
[2016-09-08] MEDS: DONEPEZIL 5 MG TAB PO SCH (08:21)
[2016-09-08] MEDS: methylPREDNISolone SOD SUCCI 40 MG/ML 1 ML VIAL IV SCH ×2 (08:21→21:59)
[2016-09-08] MEDS: NYSTATIN 100,000 UNIT/ML SUSP 500,000 UNIT/5 ML CUP PO SCH ×4 (08:22→21:59)
[2016-09-08] MEDS: MULTIVITAMINS, THERA 1 EACH TAB PO SCH (08:22)
[2016-09-08] MEDS: IPRATROPIUM-ALBUTEROL 3 ML NEB INHALATION SCH ×4 (08:24→20:28)
--- NOTE | 2016-09-08 08:34 | P.PN ---
Subjective Principal diagnosis: Acute on chronic renal failure with cardiorenal syndrome. This is a-year-old white male who is essentially admitted for pneumonia and developed influenza B but is a developed acute on chronic renal failure. Significant improvement is noted after starting dialysis. I had a long discussion with the who is agreeable to ECF/rehab. I do worry that his new baseline is quite weak. Prognosis is guarded secondary to his ejection fraction which is quite poor. Objective - Vital Signs Vital signs: Vital Signs Temp 97.3 F L 09/08/16 08:00 Pulse 92 09/08/16 08:32 Resp 18 09/08/16 08:00 BP 93/56 09/08/16 08:00 Pulse Ox 94 L 09/08/16 08:00 Intake & Output 09/07/16 09/08/16 09/08/16 18:59 06:59 18:59 Intake Total 800 80 300 Output Total 300 Balance 800 -220 300 Weight 57.4 kg Intake: IV 80 80 .9 @ 10 80 80 Oral 720 300 Output: Urine 300 Other: Voiding Method Indwelling Catheter Indwelling Catheter Indwelling Catheter - Constitutional General appearance: Present: thin - EENT Eyes: Absent: abnormal pupil - Respiratory Respiratory: bilateral: CTA - Cardiovascular Rhythm: irregularly irregular Heart sounds: normal: S1, S2 - Gastrointestinal General gastrointestinal: Present: soft. Absent: tenderness - Psychiatric Psychiatric: Present: A&O x's 3 - Labs CBC & Chem 7: 09/07/16 06:18 09/07/16 06:18 Labs: Abnormal Lab Results - Last 24 Hours (Table) 09/07/16 09/07/16 09/07/16 Range/Units 11:50 16:45 21:05 POC Glucose (mg/dL) 403 H 418 H 371 H (75-99) mg/dL 09/08/16 Range/Units 06:33 POC Glucose (mg/dL) 282 H (75-99) mg/dL Assessment and Plan (1) Afib Status: Acute (2) Bronchospasm with bronchitis, acute Status: Acute (3) Dyspnea Status: Acute (4) AICD (automatic cardioverter/defibrillator) present Status: Acute (5) Diabetes Status: Acute (6) Influenza B Status: Acute (7) Acute renal failure Status: Acute Plan: Continue dialysis. Anticipate discharge in next 24-48 hours. Element of thrombus cytopenia is also noted. Check electrolytes closely. Appreciate nephrology input. Prognosis is quite guarded secondary to his cardiorenal syndrome. Time with Patient: Less than 30
[2016-09-08 08:50] LABS: Calcium 8.1 mg/dL (8.4-10.2); Magnesium 1.9 mg/dL (1.6-2.3); Potassium 4.3 mmol/L (3.5-5.1)
[2016-09-08 08:52] LABS: Basophils % (A) 0 %; CHCM 32.2; Eosinophils % (A) 0 %; HCT 34.2 % (39.0-53.0); HDW 2.48; Luc # (Auto) 0.05; Luc % (Auto) 1; Lymphocytes # (A) 0.2 k/uL (1.0-4.8); Lymphocytes % (A) 3 %; MCH 29.1 pg (25.0-35.0); MCHC 32.1 g/dL (31.0-37.0); MCV 90.7 fL (80.0-100.0); Mean Platelet Volume 9.1; Monocytes # (A) 0.2 k/uL (0-1.0); Monocytes % (A) 2 %; Neutrophils # (A) 7.9 k/uL (1.3-7.7); Neutrophils % (A) 95 %; RBC 3.77 m/uL (4.30-5.90); RDW 15.1 % (11.5-15.5); WBC 8.4 k/uL (3.8-10.6); WBC (Perox) 8.75
--- NOTE | 2016-09-08 09:59 | P.PN ---
Subjective Principal diagnosis: Acute exacerbation of CHF Interval history since last pulmonary progress note: The patient being reevaluated and examined today at bedside on the selective care unit. Patient was found to have influenza B pneumonia, as well as Pseudomonas pneumonia. He has completed Tamiflu. The patient is being seen by nephrology scheduled for dialysis today. The patient's ejection fraction is 10-15%. The patient has multiple comorbidities and his prognosis is highly guarded. Upon Examination patient is resting up in bed with family at bedside he states his cough is significantly decreased and he hasn't brought up sputum at all today. Objective - Vital Signs Vital signs: Vital Signs Temp 97.3 F L 09/08/16 08:00 Pulse 92 09/08/16 08:32 Resp 18 09/08/16 08:00 BP 93/56 09/08/16 08:00 Pulse Ox 94 L 09/08/16 08:00 Intake & Output 09/07/16 09/08/16 09/08/16 18:59 06:59 18:59 Intake Total 800 80 537 Output Total 300 Balance 800 -220 537 Weight 57.4 kg Intake: IV 80 80 .9 @ 10 80 80 Oral 720 537 Output: Urine 300 Other: Voiding Method Indwelling Catheter Indwelling Catheter Indwelling Catheter - Exam GENERAL EXAM: Alert, active, comfortable in no apparent distress. HEAD: Normocephalic. EYES: Normal reaction of pupils, equal size. NOSE: Clear with pink turbinates. THROAT: No erythema or exudates. NECK: No masses, no JVD. CHEST: No chest wall deformity. LUNGS: Bilaterally diminished and coarse, some faint wheezing noted CVS: S1 and S2 normal with no audible mumurs, regular rhythm. ABDOMEN: No hepatosplenomegaly, normal bowel sounds, no guarding or rigidity. SPINE: No scoliosis or deformity SKIN: No rashes CENTRAL NERVOUS SYSTEM: No focal deficits, tone is normal in all 4 extremities. - Labs CBC & Chem 7: 09/08/16 08:29 09/08/16 08:29 Labs: Abnormal Lab Results - Last 24 Hours (Table) 09/07/16 09/07/16 09/07/16 Range/Units 11:50 16:45 21:05 RBC (4.30-5.90) m/uL Hgb (13.0-17.5) gm/dL Hct (39.0-53.0) % Plt Count (150-450) k/uL Neutrophils # (1.3-7.7) k/uL Lymphocytes # (1.0-4.8) k/uL Sodium (137-145) mmol/L BUN (9-20) mg/dL Creatinine (0.66-1.25) mg/dL Glucose (74-99) mg/dL POC Glucose (mg/dL) 403 H 418 H 371 H (75-99) mg/dL Calcium (8.4-10.2) mg/dL 09/08/16 09/08/16 09/08/16 Range/Units 06:33 08:29 08:29 RBC 3.77 L (4.30-5.90) m/uL Hgb 11.0 L (13.0-17.5) gm/dL Hct 34.2 L (39.0-53.0) % Plt Count 44 L* (150-450) k/uL Neutrophils # 7.9 H (1.3-7.7) k/uL Lymphocytes # 0.2 L (1.0-4.8) k/uL Sodium 135 L (137-145) mmol/L BUN 87 H* (9-20) mg/dL Creatinine 4.43 H (0.66-1.25) mg/dL Glucose 254 H (74-99) mg/dL POC Glucose (mg/dL) 282 H (75-99) mg/dL Calcium 8.1 L (8.4-10.2) mg/dL Assessment and Plan Plan: Assessment #1 acute hypoxic respiratory failure #2 acute exacerbation of CHF, with small bilateral pleural effusions #3 influenza B pneumonia #4 secondary bacterial pneumonia #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 O2 is to maintain at greater saturation of greater than 88%, continue on antibiotics. Tamiflu course is completed. Continue gentle hydration. Continue with nebulizer treatments. Continue to monitor for any worsening of the respiratory status or hydration. Nephrology is on the case, and managing dialysis, patient will undergo hemodialysis today. We will continue with supportive care, the overall prognosis remains poor. I performed an examination of the patient and discussed their management with the nurse practitioner. I have reviewed the nurse practitioner's note and agree with the documented findings and plan of care.
[2016-09-08 11:27] LABS: Glucose,Whole Blood 238 mg/dL (75-99)
[2016-09-08 11:33] VITALS: BMI 21.7
[2016-09-08] MEDS: FUROSEMIDE 10 MG/ML 10 ML VIAL IV SCH ×2 (13:31→21:58)
--- NOTE | 2016-09-08 14:05 | PN ---
Patient is seen for followup for acute kidney injury, currently on hemodialysis. Patient is scheduled for dialysis today. He is currently awake. He is not in any acute distress. He has had some urine output which is slightly lower than last week, prior to the weekend. Patient remains on Lasix 80 mg q.12 hours. On examination, blood pressure is 100/60, heart rate 81 per minute. He is afebrile. Examination of the heart, S1 and S2. Examination of the lungs, decreased breath sounds at the bases. Abdomen is soft, nontender. Examination of lower extremities shows edema 2+ bilaterally. Right groin hematoma is stable. Labs show sodium 135, potassium 4.3. Hemoglobin 11.0. ASSESSMENT: 1. Acute kidney injury secondary to cardiorenal syndrome, currently on dialysis. Will maintain patient on dialysis. He is maintained on Lasix 80 mg q.12 hours, which we can continue. 2. Thrombocytopenia, fairly stable. No active bleeding noted at this time. Patient has been evaluated by Hematology. Etiology is thought to be sepsis, congestive heart failure. 3. Severe cardiomyopathy with ejection fraction of less than 20%. 4. Volume overload, slowly improving. 5. Right femoral hematoma at the site of the [place] cath, currently stable. 6. Influenza pneumonia and sputum culture also positive for Pseudomonas. PLAN: Hemodialysis today. Use midodrine prior to treatment. Goal UF of about 1.5 to 2 L as tolerated. I have discussed with social worker clinical, we are able to take care of him at the [facility].
[2016-09-08 16:27] LABS: Glucose,Whole Blood 123 mg/dL (75-99)
[2016-09-08] MEDS: METOPROLOL SUCCINATE (ER) 50 MG TAB.ER.24H PO SCH (16:29)
[2016-09-08] MEDS ORDERED: HEPARIN SODIUM,PORCINE 5,000 UNIT/ML 1 ML VIAL ONE (16:45)
--- NOTE | 2016-09-08 17:06 | PN ---
DATE OF SERVICE: 09/08/2016 REASON FOR FOLLOWUP: Pseudomonas tracheobronchitis/pneumonia. INTERVAL HISTORY: The patient is afebrile. He has been breathing comfortably. Currently waiting for discharge. Denies having any chest pain, shortness of breath; occasional cough. No abdominal pain or any diarrhea. On examination, blood pressure is 104/63 with a pulse of 58, temperature 97.3. He is 100% on room air. General description is an elderly male lying in bed in no distress. RESPIRATORY SYSTEM: Unlabored breathing. Clear to auscultation anteriorly. HEART: S1, S2. Regular rate and rhythm. ABDOMEN: Soft. No tenderness. LABS: Hemoglobin is 11. White count 8.4. BUN of 87. Creatinine is 4.43. DIAGNOSTIC IMPRESSION AND PLAN: Patient with Pseudomonas aeruginosa tracheobronchitis/pneumonia, adequately treated. No need for further antibiotic at time of discharge. Continue supportive care.
[2016-09-08] MEDS: LEVOFLOXACIN 250 MG TAB PO SCH (17:26)
[2016-09-08 20:59] LABS: Glucose,Whole Blood 144 mg/dL (75-99)
[2016-09-08] MEDS: ATORVASTATIN 10 MG TAB PO SCH (21:58)
[2016-09-09 05:53] LABS: Glucose,Whole Blood 238 mg/dL (75-99)
[2016-09-09 06:08] LABS: Basophils % (A) 0 %; CHCM 32.4; Eosinophils % (A) 0 %; HCT 34.1 % (39.0-53.0); HDW 2.52; HGB 11.1 gm/dL (13.0-17.5); Luc # (Auto) 0.04; Luc % (Auto) 1; Lymphocytes # (A) 0.2 k/uL (1.0-4.8); Lymphocytes % (A) 4 %; MCH 29.4 pg (25.0-35.0); MCHC 32.7 g/dL (31.0-37.0); MCV 89.9 fL (80.0-100.0); Mean Platelet Volume 8.9; Monocytes # (A) 0.2 k/uL (0-1.0); Monocytes % (A) 3 %; Neutrophils # (A) 6.4 k/uL (1.3-7.7); Neutrophils % (A) 92 %; RBC 3.79 m/uL (4.30-5.90); RDW 15.2 % (11.5-15.5); WBC 6.9 k/uL (3.8-10.6); WBC (Perox) 7.41
[2016-09-09 06:25] LABS: Calcium 8.1 mg/dL (8.4-10.2); Potassium 4.7 mmol/L (3.5-5.1)
[2016-09-09] MEDS: PANTOPRAZOLE 40 MG TABLET PO SCH (06:36)
[2016-09-09] MEDS: MIDODRINE 5 MG TAB PO SCH ×3 (06:36→17:34)
[2016-09-09] MEDS: INSULIN LISPRO (humaLOG) 300 UNIT/3 ML VIAL SQ SCH ×7 (07:02→21:49)
[2016-09-09] MEDS: DONEPEZIL 5 MG TAB PO SCH (08:17)
[2016-09-09] MEDS: MULTIVITAMINS, THERA 1 EACH TAB PO SCH (08:17)
[2016-09-09] MEDS: INSULIN DETEMIR 100 UNIT/ML 10 ML VIAL SQ SCH (08:17)
[2016-09-09] MEDS: methylPREDNISolone SOD SUCCI 40 MG/ML 1 ML VIAL IV SCH ×2 (08:17→20:06)
[2016-09-09] MEDS: AMIODARONE 200 MG TAB PO SCH ×2 (08:17→20:05)
[2016-09-09] MEDS: NYSTATIN 100,000 UNIT/ML SUSP 500,000 UNIT/5 ML CUP PO SCH ×4 (08:17→21:50)
[2016-09-09] MEDS: MEGESTROL 400 MG/10 ML CUP PO SCH (08:17)
[2016-09-09] MEDS: DORZOLAMIDE-TIMOLOL 2-0.5% DROPS 10 ML BTL BOTH EYES SCH ×2 (08:17→20:06)
--- NOTE | 2016-09-09 10:43 | P.PN ---
Subjective Principal diagnosis: Acute exacerbation of CHF Interval history since last pulmonary progress note: The patient being reevaluated and examined today at bedside on the selective care unit. Patient was found to have influenza B pneumonia, as well as Pseudomonas pneumonia. He has completed Tamiflu. The patient is being seen by nephrology, patient had a round of dialysis yesterday and 1.5 L of fluid was removed. The patient's ejection fraction is 10-15%. The patient has multiple comorbidities and his prognosis is highly guarded. Upon Examination patient is resting up in bed, he states his cough is significantly decreased and he hasn't brought up sputum at all today. Objective - Vital Signs Vital signs: Vital Signs Temp 97.1 F L 09/09/16 08:27 Pulse 67 09/09/16 08:27 Resp 18 09/09/16 08:27 BP 85/51 09/09/16 08:27 Pulse Ox 98 09/09/16 08:27 Intake & Output 09/08/16 09/09/16 09/09/16 18:59 06:59 18:59 Intake Total 819 0 237 Output Total 300 Balance 819 -300 237 Weight 57.4 kg 56.3 kg Intake: IV 60 .9 @ 10 60 Oral 759 0 237 Output: Urine 300 Other: Voiding Method Indwelling Catheter Indwelling Catheter Indwelling Catheter # Bowel Movements 0 - Exam GENERAL EXAM: Alert, active, comfortable in no apparent distress. HEAD: Normocephalic. EYES: Normal reaction of pupils, equal size. NOSE: Clear with pink turbinates. THROAT: No erythema or exudates. NECK: No masses, no JVD. CHEST: No chest wall deformity. LUNGS: Bilaterally diminished and coarse, some faint expiratory wheezing noted CVS: S1 and S2 normal with no audible mumurs, regular rhythm. ABDOMEN: No hepatosplenomegaly, normal bowel sounds, no guarding or rigidity. SPINE: No scoliosis or deformity SKIN: No rashes CENTRAL NERVOUS SYSTEM: No focal deficits, tone is normal in all 4 extremities. - Labs CBC & Chem 7: 09/09/16 05:57 09/09/16 05:57 Labs: Abnormal Lab Results - Last 24 Hours (Table) 09/08/16 09/08/16 09/08/16 Range/Units 11:25 16:22 20:57 RBC (4.30-5.90) m/uL Hgb (13.0-17.5) gm/dL Hct (39.0-53.0) % Plt Count (150-450) k/uL Lymphocytes # (1.0-4.8) k/uL Sodium (137-145) mmol/L Carbon Dioxide (22-30) mmol/L BUN (9-20) mg/dL Creatinine (0.66-1.25) mg/dL Glucose (74-99) mg/dL POC Glucose (mg/dL) 238 H 123 H 144 H (75-99) mg/dL Calcium (8.4-10.2) mg/dL 09/09/16 09/09/16 09/09/16 Range/Units 05:52 05:57 05:57 RBC 3.79 L (4.30-5.90) m/uL Hgb 11.1 L (13.0-17.5) gm/dL Hct 34.1 L (39.0-53.0) % Plt Count 40 L* (150-450) k/uL Lymphocytes # 0.2 L (1.0-4.8) k/uL Sodium 135 L (137-145) mmol/L Carbon Dioxide 21 L (22-30) mmol/L BUN 59 H (9-20) mg/dL Creatinine 3.10 H (0.66-1.25) mg/dL Glucose 239 H (74-99) mg/dL POC Glucose (mg/dL) 238 H (75-99) mg/dL Calcium 8.1 L (8.4-10.2) mg/dL Assessment and Plan Plan: Assessment #1 acute hypoxic respiratory failure #2 acute exacerbation of CHF, with small bilateral pleural effusions #3 influenza B pneumonia #4 secondary bacterial pneumonia #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 O2 is to maintain at greater saturation of greater than 88%, continue on antibiotics. Tamiflu course is completed. Continue gentle hydration. Continue with nebulizer treatments. Continue to monitor for any worsening of the respiratory status or hydration. Nephrology is on the case, and managing dialysis, patient will undergo hemodialysis today. We will continue with supportive care, the overall prognosis remains poor. Per staff the patient is supposed to be discharged to a rehab facility in the near future. I performed an examination of the patient and discussed their management with the nurse practitioner. I have reviewed the nurse practitioner's note and agree with the documented findings and plan of care.
[2016-09-09] MEDS: METOPROLOL SUCCINATE (ER) 50 MG TAB.ER.24H PO SCH (11:20)
[2016-09-09 11:22] LABS: Glucose,Whole Blood 289 mg/dL (75-99)
[2016-09-09] MEDS: IPRATROPIUM-ALBUTEROL 3 ML NEB INHALATION SCH ×4 (11:38→20:17)
--- NOTE | 2016-09-09 11:44 | PN ---
DATE OF SERVICE: 09/09/2016 Reason for followup is pseudomonas tracheobronchitis/pneumonia. INTERVAL HISTORY: The patient is afebrile. Has been breathing comfortably. Patient denies any significant chest pain or shortness of breath. No cough, abdominal pain or any diarrhea. On examination, blood pressure is 102/52 with a pulse of 67, temperature 97.1. He is 98% on room air. General description is an elderly male, lying in bed in no distress. RESPIRATORY SYSTEM: Unlabored breathing. Clear to auscultation anteriorly. HEART: S1, S2. Regular rate and rhythm. ABDOMEN: Soft, no tenderness. LABS: Hemoglobin 11.1, white count 6.9. BUN of 59, creatinine of 3.10. DIAGNOSTIC IMPRESSION AND PLAN: Patient with pseudomonas tracheobronchitis/pneumonia, adequately treated. His white count has normalized. Will go ahead and discontinue Levaquin . Please call back if any questions on his Infectious Disease care. Family was present at the beside. Their questions were answered. CHIKI
[2016-09-09] MEDS: FUROSEMIDE 10 MG/ML 4 ML VIAL IV SCH (12:07)
[2016-09-09 16:18] LABS: Glucose,Whole Blood 232 mg/dL (75-99)
[2016-09-09] MEDS ORDERED: HEPARIN SODIUM,PORCINE 5,000 UNIT/ML 1 ML VIAL ONE (17:00)
--- NOTE | 2016-09-09 19:46 | PN ---
Patient is seen for followup for acute kidney injury, mainly cardiorenal, currently dialysis-dependent with severe volume overload. Patient will be dialyzed today, mainly for ultrafiltration. He is sitting up in a bedside chair and eating. His is present at bedside. On examination, blood pressure is 103/55, heart rate 57 per minute. He is afebrile. EXAMINATION OF THE HEART: S1 and S2. EXAMINATION OF THE LUNGS: Decreased breath sounds in bases. ABDOMEN: Soft. Examination of lower extremities shows edema 2 to 3+ bilaterally. IMPORT COORDINATOR exam is grossly intact. Labs show sodium 135, potassium 4.7, BUN 59, serum creatinine 3.1. Hemoglobin 11.1 g/dL. ASSESSMENT: 1. Acute kidney injury, currently dialysis-dependent. Patient is non-oliguric. He has been on Lasix, the dose of which was decreased. Plans are for discharge possibly tomorrow to [facility]. Patient will be dialyzed on a Thursday, , Thursday schedule as outpatient at the [place] unit. 2. Thrombocytopenia, currently stable. 3. Severe cardiomyopathy, ejection fraction less than 20%, with borderline blood pressures, maintained on midodrine. 4. Influenza pneumonia. 5. Severe volume overload, slowly improving. PLAN: UF only today with dialysis. Patient can be discharged by tomorrow.
[2016-09-09] MEDS: ATORVASTATIN 10 MG TAB PO SCH (20:05)
[2016-09-09 20:56] LABS: Glucose,Whole Blood 220 mg/dL (75-99)
[2016-09-09] MEDS: DOCUSATE 100 MG CAP PO SCH (21:49)
--- NOTE | 2016-09-09 21:50 | P.PN ---
Subjective Principal diagnosis: Generalized weakness This is a continuing progress note and an 81-year-old white male essentially admitted originally for pneumonia and found to have influenza B. The patient has developed cardiorenal syndrome with significant heart failure with poor ejection fraction. He is developed acute on chronic renal failure is not being treated with dialysis. He has not had significant improvement after multiple dialyzed treatments. Significant improvement in ambulation is noted and he is scheduled to be transferred to rehabilitation facility in the a.m. Objective - Vital Signs Vital signs: Vital Signs Temp 97.1 F L 09/09/16 20:00 Pulse 88 09/09/16 20:22 Resp 18 09/09/16 20:00 BP 120/81 09/09/16 20:00 Pulse Ox 97 09/09/16 20:00 Intake & Output 09/09/16 09/09/16 09/10/16 06:59 18:59 06:59 Intake Total 0 497 Output Total 300 Balance -300 497 Weight 56.3 kg Intake: IV 80 .9 @ 10 80 Oral 0 417 Output: Urine 300 Other: Voiding Method Indwelling Catheter Indwelling Catheter Indwelling Catheter # Bowel Movements 0 - EENT Eyes: Present: abnormal pupil - Neck Neck: Absent: lymphadenopathy Carotids: bilateral: upstroke normal, upstroke delayed, upstroke diminished, upstroke bounding, bruit absent, bruit present - Respiratory Respiratory: bilateral: diminished - Cardiovascular Rhythm: regular Heart sounds: normal: S1, S2 - Gastrointestinal General gastrointestinal: Present: soft. Absent: tenderness - Integumentary Integumentary: Absent: rash - Musculoskeletal Musculoskeletal: Present: generalized weakness - Labs CBC & Chem 7: 09/09/16 05:57 09/09/16 05:57 Labs: Abnormal Lab Results - Last 24 Hours (Table) 09/09/16 09/09/16 09/09/16 Range/Units 05:52 05:57 05:57 RBC 3.79 L (4.30-5.90) m/uL Hgb 11.1 L (13.0-17.5) gm/dL Hct 34.1 L (39.0-53.0) % Plt Count 40 L* (150-450) k/uL Lymphocytes # 0.2 L (1.0-4.8) k/uL Sodium 135 L (137-145) mmol/L Carbon Dioxide 21 L (22-30) mmol/L BUN 59 H (9-20) mg/dL Creatinine 3.10 H (0.66-1.25) mg/dL Glucose 239 H (74-99) mg/dL POC Glucose (mg/dL) 238 H (75-99) mg/dL Calcium 8.1 L (8.4-10.2) mg/dL 09/09/16 09/09/16 09/09/16 Range/Units 11:20 16:16 20:54 RBC (4.30-5.90) m/uL Hgb (13.0-17.5) gm/dL Hct (39.0-53.0) % Plt Count (150-450) k/uL Lymphocytes # (1.0-4.8) k/uL Sodium (137-145) mmol/L Carbon Dioxide (22-30) mmol/L BUN (9-20) mg/dL Creatinine (0.66-1.25) mg/dL Glucose (74-99) mg/dL POC Glucose (mg/dL) 289 H 232 H 220 H (75-99) mg/dL Calcium (8.4-10.2) mg/dL Assessment and Plan (1) Afib Status: Acute (2) Bronchospasm with bronchitis, acute Status: Acute (3) Dyspnea Status: Acute (4) AICD (automatic cardioverter/defibrillator) present Status: Acute (5) Diabetes Status: Acute (6) Influenza B Status: Acute (7) Acute renal failure Status: Acute Plan: Anticipate transfer in a.m. Significant improvement is noted. Check CMP in a.m. Prognosis is guarded secondary to poor ejection fraction and acute on chronic renal failure.. However, pneumonia and influenza B have been treated appropriately.
[2016-09-10 00:44] VITALS: RESP 16
[2016-09-10 05:52] LABS: Glucose,Whole Blood 146 mg/dL (75-99)
[2016-09-10] MEDS: INSULIN LISPRO (humaLOG) 300 UNIT/3 ML VIAL SQ SCH ×4 (07:07→11:15)
[2016-09-10] MEDS: PANTOPRAZOLE 40 MG TABLET PO SCH (07:08)
[2016-09-10] MEDS: MIDODRINE 5 MG TAB PO SCH ×2 (07:08→11:17)
[2016-09-10] MEDS: IPRATROPIUM-ALBUTEROL 3 ML NEB INHALATION SCH ×2 (07:55→13:17)
--- NOTE | 2016-09-10 07:55 | P.DS ---
Providers Date of admission: 08/15/16 15:44 Attending physician: Jose Farah Consults: 08/16/16 06:44 Consult Physician Routine Consulting Provider: Yung Morton Consult Reason/Comments: arrythmias Do you want consulting provider notified?: Yes, Notify in am 08/19/16 08:48 Consult Physician Routine Consulting Provider: Andrea Ibrahim Consult Reason/Comments: chronic bronchitis Do you want consulting provider notified?: Yes 08/22/16 01:53 Consult Physician Routine Consulting Provider: Luis F Hernández Consult Reason/Comments: renal failure Do you want consulting provider notified?: Yes, Notify in am 08/25/16 06:21 Consult Physician Routine Consulting Provider: Juanjo Carbajal Consult Reason/Comments: urinary retention Do you want consulting provider notified?: Already Contacted 08/26/16 07:38 Consult Physician Routine Consulting Provider: Dangelo Villegas Consult Reason/Comments: Dialysis cath Do you want consulting provider notified?: Yes 08/27/16 16:03 Consult Physician Urgent Consulting Provider: Amber Mc Consult Reason/Comments: multi organism infections Do you want consulting provider notified?: Yes 09/01/16 18:38 Consult Physician Urgent Consulting Provider: Chapito Rosado Consult Reason/Comments: low platelets Do you want consulting provider notified?: Yes 09/02/16 11:46 Consult Physician Stat Consulting Provider: Dangelo Villegas Consult Reason/Comments: to remove femerol catheter Do you want consulting provider notified?: Yes Primary care physician: Jose Farah - Discharge Diagnosis(es) (1) Afib Current Visit: Yes Status: Acute (2) Bronchospasm with bronchitis, acute Current Visit: Yes Status: Acute (3) Dyspnea Current Visit: Yes Status: Acute (4) AICD (automatic cardioverter/defibrillator) present Current Visit: No Status: Acute (5) Diabetes Current Visit: No Status: Acute (6) Influenza B Current Visit: Yes Status: Acute (7) Acute renal failure Current Visit: Yes Status: Acute Hospital Course: This is a discharge on 9-year-old white male essentially admitted for pneumonia but found have influenza B. Element of congestive heart failure secondary to cardio myopathy and valvular disease. The patient developed cardiorenal syndrome which then required houses. He was kept for over 3 weeks but then stabilized. He is transferred to rehab in stable condition but guarded secondary to his multiple comorbidities. He is to continue dialysis. However, the family does understand that with his ejection fraction of 20% and his dependency at this time on nephrology/dialysis, his prognosis is guarded. Patient Condition at Discharge: Fair Plan - Discharge Summary New Discharge Prescriptions: ALPRAZolam [Xanax] 0.25 mg PO TID PRN #90 tab PRN Reason: Anxiety Discharge Medication List Digoxin [Lanoxin] 125 mcg PO Q48H 09/03/14 [History] Insulin Detemir [Levemir Flextouch] 22 units SQ QAM 09/03/14 [History] Lovastatin [Mevacor] 40 mg PO HS 09/03/14 [History] Multivitamins, Thera [Multivitamin] 1 tab PO DAILY 09/03/14 [History] hydrALAZINE HCL [Apresoline] 25 mg PO TID 09/03/14 [History] Apixaban [Eliquis] 2.5 mg PO BID 01/18/16 [History] Isosorbide Dinitrate [Isordil] 10 mg PO TID 01/18/16 [History] Rivastigmine Tartrate [Rivastigmine] 1.5 mg PO BID 01/18/16 [History] Insulin Aspart [NovoLOG Flexpen] See Protocol SQ AC-TID 06/23/16 [History] Dorzolamide/Timolol/Pf [Cosopt Pf 2%/5% Ophth Droperette] 1 applicator BOTH EYES BID 08/15/16 [History] Furosemide [Lasix] 40 mg PO DAILY 08/15/16 [History] traMADol HCL [Ultram] 50 mg PO Q6HR PRN 08/15/16 [History] ALPRAZolam [Xanax] 0.25 mg PO TID PRN #90 tab 09/10/16 [Rx] Amiodarone [Cordarone] 200 mg PO BID tab 09/10/16 [Rx] Docusate [Colace] 100 mg PO BID cap 09/10/16 [Rx] Ipratropium-Albuterol Nebulize [Duoneb 0.5 mg-3 mg/3 ml Soln] 3 ml INHALATION RT -QID ampul.neb 09/10/16 [Rx] Megestrol [Megace] 400 mg PO DAILY cup 09/10/16 [Rx] Metoprolol Succinate (ER) [Toprol XL] 50 mg PO DAILY tab.er.24h 09/10/16 [Rx] Midodrine [ProAmatine] 5 mg PO AC-TID tab 09/10/16 [Rx] Nystatin 100,000 Unit/ml Susp [Mycostatin Oral Susp] 500,000 unit PO QID cup [Rx] Pantoprazole [Protonix] 40 mg PO AC-BRKFST tablet. 09/10/16 [Rx] Follow up Appointment(s)/Referral(s): [facility], [NON-STAFF] - Andrea Ibrahim MD [STAFF PHYSICIAN] - 1 Week Jose Farah MD [Primary Care Provider] - 3 Weeks Discharge Disposition: TRANSFER TO SNF/ECF
[2016-09-10 08:13] VITALS: TEMP 96.8
[2016-09-10] MEDS: AMIODARONE 200 MG TAB PO SCH (08:13)
[2016-09-10] MEDS: DORZOLAMIDE-TIMOLOL 2-0.5% DROPS 10 ML BTL BOTH EYES SCH (08:14)
[2016-09-10] MEDS: DOCUSATE 100 MG CAP PO SCH (08:14)
[2016-09-10] MEDS: DONEPEZIL 5 MG TAB PO SCH (08:14)
[2016-09-10] MEDS: methylPREDNISolone SOD SUCCI 40 MG/ML 1 ML VIAL IV SCH (08:15)
[2016-09-10] MEDS: MEGESTROL 400 MG/10 ML CUP PO SCH (08:15)
[2016-09-10] MEDS: FUROSEMIDE 10 MG/ML 4 ML VIAL IV SCH (08:15)
[2016-09-10] MEDS: NYSTATIN 100,000 UNIT/ML SUSP 500,000 UNIT/5 ML CUP PO SCH ×2 (08:16→11:15)
[2016-09-10] MEDS: MULTIVITAMINS, THERA 1 EACH TAB PO SCH (08:16)
[2016-09-10] MEDS: INSULIN DETEMIR 100 UNIT/ML 10 ML VIAL SQ SCH (08:25)
--- NOTE | 2016-09-10 10:14 | P.PN ---
Subjective Interval history since last pulmonary progress note: The patient being reevaluated and examined today at bedside on the selective care unit. Patient was found to have influenza B pneumonia, as well as Pseudomonas pneumonia. He has completed Tamiflu. The patient is being seen by nephrology, patient had a round of dialysis yesterday and 1.5 L of fluid was removed. The patient's ejection fraction is 10-15%. The patient has multiple comorbidities and his prognosis is highly guarded. Upon Examination patient is resting up in bed, he states his cough is significantly decreased and he hasn't brought up sputum at all today. The patient will be discharged to [facility] today. Objective - Vital Signs Vital signs: Vital Signs Temp 96.8 F L 09/10/16 08:00 Pulse 89 09/10/16 08:00 Resp 16 09/10/16 08:00 BP 95/50 09/10/16 08:00 Pulse Ox 98 09/10/16 08:00 Intake & Output 09/09/16 09/10/16 09/10/16 18:59 06:59 18:59 Intake Total 497 236 Output Total 575 Balance 497 -575 236 Weight 54.7 kg Intake: IV 80 .9 @ 10 80 Oral 417 236 Output: Urine 575 Other: Voiding Method Indwelling Catheter Indwelling Catheter Indwelling Catheter # Voids 1 - Exam GENERAL EXAM: Alert, active, comfortable in no apparent distress. HEAD: Normocephalic. EYES: Normal reaction of pupils, equal size. NOSE: Clear with pink turbinates. THROAT: No erythema or exudates. NECK: No masses, no JVD. CHEST: No chest wall deformity. LUNGS: Bilaterally diminished and coarse, some faint expiratory wheezing noted CVS: S1 and S2 normal with no audible mumurs, regular rhythm. ABDOMEN: No hepatosplenomegaly, normal bowel sounds, no guarding or rigidity. SPINE: No scoliosis or deformity SKIN: No rashes CENTRAL NERVOUS SYSTEM: No focal deficits, tone is normal in all 4 extremities. - Labs CBC & Chem 7: 09/09/16 05:57 09/09/16 05:57 Labs: Abnormal Lab Results - Last 24 Hours (Table) 09/09/16 09/09/16 09/09/16 Range/Units 11:20 16:16 20:54 POC Glucose (mg/dL) 289 H 232 H 220 H (75-99) mg/dL 09/10/16 Range/Units 05:50 POC Glucose (mg/dL) 146 H (75-99) mg/dL Assessment and Plan Plan: Assessment #1 acute hypoxic respiratory failure #2 acute exacerbation of CHF, with small bilateral pleural effusions #3 influenza B pneumonia #4 secondary bacterial pneumonia #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 Continue with nebulizer treatments. Continue to monitor for any worsening of the respiratory status or hydration. Nephrology is on the case, and managing dialysis. We will continue with supportive care, the overall prognosis remains poor. Patient will be discharged to [facility] today. I performed an examination of the patient and discussed their management with the nurse practitioner. I have reviewed the nurse practitioner's note and agree with the documented findings and plan of care.
[2016-09-10 11:14] VITALS: BP 109/76
[2016-09-10 11:16] LABS: Glucose,Whole Blood 199 mg/dL (75-99)
[2016-09-10 11:49] VITALS: PULSE 88
--- NOTE | 2016-09-10 16:14 | PN ---
Patient is seen for follow-up for acute kidney injury, currently dialysis -dependent. Patient was dialyzed yesterday; however, he had only ultrafiltration. He is sitting up in bed, comfortable. He is not in any acute distress. He will be discharged to [facility] today. On examination, the patient is comfortable, awake, not in any acute distress. Blood pressure is 109/76, heart rate 88 per minute. He is afebrile. Examination of the heart S1 and S2. Examination of the lungs: Bilateral breath sounds are heard. Abdomen is soft, nontender. Examination of the lower extremities shows edema 2+ bilaterally. ASSESSMENT: 1. Acute kidney injury hemodialysis dependent. The patient will continue with dialysis as outpatient on a Thursday, , Thursday schedule. He has an IJ Perm-A-Cath. 2. Thrombocytopenia. We will continue to maintain patient on dialysis without heparin. 3. Severe cardiomyopathy, ejection fraction of less than 20%. 4. Severe volume overload, slowly improving. PLAN: Patient can be discharged. We will see him as outpatient for follow-up on .
== END 2016-09-10 13:23 | DRG 190 ==
LOC: EC 12:24 → 6SEL 15:44
PROVIDERS: ADMIT Family Medicine; ATTEND Family Medicine
PROC: 04HK33Z Insertion of Infusion Device into Right Femoral Artery, Percutaneous Approach (ICD-10-PCS; principal; 2016-08-27 15:30)
PROC: B44FZZZ Ultrasonography of Right Lower Extremity Arteries (ICD-10-PCS; principal; 2016-08-27 15:30)
PROC: 5A1D60Z (ICD-10-PCS; 2016-08-27 15:30)
PROC: 05HM33Z Insertion of Infusion Device into Right Internal Jugular Vein, Percutaneous Approach (ICD-10-PCS; 2016-09-03)
PROC: B543ZZA Ultrasonography of Right Jugular Veins, Guidance (ICD-10-PCS; 2016-09-03)
PROC: B5131ZA Fluoroscopy of Right Jugular Veins using Low Osmolar Contrast, Guidance (ICD-10-PCS; 2016-09-03)
DX: J44.0 Chronic obstructive pulmonary disease with (acute) lower respiratory infection (principal); A41.9 Sepsis, unspecified organism; J96.01 Acute respiratory failure with hypoxia; N17.0 Acute kidney failure with tubular necrosis; J15.1 Pneumonia due to Pseudomonas; I50.43 Acute on chronic combined systolic (congestive) and diastolic (congestive) heart failure; N18.4 Chronic kidney disease, stage 4 (severe); J12.89 Other viral pneumonia; I47.2 Ventricular tachycardia; J45.901 Unspecified asthma with (acute) exacerbation; I13.0 Hypertensive heart and chronic kidney disease with heart failure and stage 1 through stage 4 chronic kidney disease, or unspecified chronic kidney disease; E44.0 Moderate protein-calorie malnutrition; E87.2 Acidosis; I42.9 Cardiomyopathy, unspecified; E87.1 Hypo-osmolality and hyponatremia; J98.11 Atelectasis; R17 Unspecified jaundice; J10.08 Influenza due to other identified influenza virus with other specified pneumonia; J44.1 Chronic obstructive pulmonary disease with (acute) exacerbation; D69.6 Thrombocytopenia, unspecified; F03.90 Unspecified dementia, unspecified severity, without behavioral disturbance, psychotic disturbance, mood disturbance, and anxiety; I48.2 Chronic atrial fibrillation; E11.22 Type 2 diabetes mellitus with diabetic chronic kidney disease; C61 Malignant neoplasm of prostate; B37.9 Candidiasis, unspecified; D64.9 Anemia, unspecified; B96.5 Pseudomonas (aeruginosa) (mallei) (pseudomallei) as the cause of diseases classified elsewhere; E78.5 Hyperlipidemia, unspecified; E87.5 Hyperkalemia; J20.9 Acute bronchitis, unspecified; Z79.01 Long term (current) use of anticoagulants; Z79.4 Long term (current) use of insulin; Z79.899 Other long term (current) drug therapy; Z85.828 Personal history of other malignant neoplasm of skin; Z95.810 Presence of automatic (implantable) cardiac defibrillator
CPT/HCPCS: 36415; 36558; 71010; 71020; 74000; 76770; 76937; 77001; 80048; 80053; 81001; 81003; 82550; 82553; 82607; 82747; 83036; 83605; 83735; 83880; 83883; 84100; 84165; 84484; 85025; 85027; 85610; 85730; 86022; 86038; 86334; 86431; 87070; 87077; 87186; 87205; 87340; 87502; 90935; 93005; 93306; 94640; 94760; 96374; 99285

== ENCOUNTER 2016-09-16 09:13 | Inpatient (IN) | payer MEDICARE, BC ==
[2016-09-16] MEDS ORDERED: methylPREDNISolone SOD SUCCI 125 MG/2 ML VIAL IV STA (09:25)
--- NOTE | 2016-09-16 09:25 | ED ---
General Adult HPI - General Stated complaint: REX Time Seen by Provider: 09/16/16 09:13 Source: RN notes reviewed - History of Present Illness Initial comments: This is an 81-year-old male who presents emergency Department with a past medical history of dialysis. Patient got dialyzed on Thursday was post be dialyzed today. According to the correction in the middle night his blood pressure dropped they gave him some fluid and seemed to rebound nicely. Patient also had a low glucose of 43 during which they replaced and the patient seemed to respond well to that as well. The patient was having difficulty breathing and wheezing and he had a treatment in route by EMS. Patient is not a very good historian he says he just doesn't feel good but he is not specific at all. Patient doesn't complain of headache he does not complain of chest pain. Patient states his abdomen hurts a little. Patient denies any significant cough but he does state occasionally has been short of breath. Patient denies any recent injury or trauma - Related Data Home Medications Medication Instructions Recorded Confirmed Digoxin [Lanoxin] 125 mcg PO Q48H 09/03/14 09/16/16 Insulin Detemir [Levemir Flextouch] 22 units SQ DAILY@0700 09/03/14 09/16/16 Lovastatin [Mevacor] 40 mg PO HS@2100 09/03/14 09/16/16 Multivitamins, Thera [Multivitamin] 1 tab PO DAILY@1700 09/03/14 09/16/16 hydrALAZINE HCL [Apresoline] 25 mg PO TID@0600,1400,2100 09/03/14 09/16/16 Apixaban [Eliquis] 2.5 mg PO BID@0800,1700 01/18/16 09/16/16 Isosorbide Dinitrate [Isordil] 10 mg PO TID 01/18/16 09/16/16 Rivastigmine Tartrate 1.5 mg PO BID@0800,1700 01/18/16 09/16/16 [Rivastigmine] Insulin Aspart [NovoLOG Flexpen] See Protocol SQ TID@0700,1100,1730 06/23/16 Dorzolamide/Timolol/Pf [Cosopt Pf 1 applicator BOTH EYES 08/15/16 09/16/16 2%/5% Ophth Droperette] BID@0800,1700 Furosemide [Lasix] 40 mg PO DAILY@0600 08/15/16 09/16/16 Acetaminophen Tab [Tylenol Tab] 650 mg PO Q4H PRN 09/16/16 09/16/16 Amiodarone [Cordarone] 200 mg PO BID@0800,1700 09/16/16 09/16/16 Bisacodyl 10 mg RECTAL DAILY PRN 09/16/16 09/16/16 Docusate [Colace] 100 mg PO BID@0800,1700 09/16/16 09/16/16 Ipratropium-Albuterol Nebulize 3 ml INHALATION RT-QID PRN 09/16/16 09/16/16 [Duoneb 0.5 mg-3 mg/3 ml Soln] Magnesium Hydroxide [Milk of 2,400 mg PO DAILY PRN 09/16/16 09/16/16 Magnesia] Megestrol [Megace] 400 mg PO DAILY@0800 09/16/16 09/16/16 Metoprolol Succinate (ER) [Toprol 50 mg PO DAILY@1700 09/16/16 09/16/16 XL] Midodrine [ProAmatine] 5 mg PO TID@0700,1100,1730 09/16/16 09/16/16 Pantoprazole [Protonix] 40 mg PO DAILY@0800 09/16/16 09/16/16 guaiFENesin SYRUP 100MG/5ML 200 mg PO Q4H PRN 09/16/16 09/16/16 [Robitussin] Previous Rx's Medication Instructions Recorded ALPRAZolam [Xanax] 0.25 mg PO TID PRN #90 tab 09/10/16 Nystatin 100,000 Unit/ml Susp 500,000 unit PO QID cup 09/10/16 [Mycostatin Oral Susp] Allergies Allergy/AdvReac Type Severity Reaction Status Date / Time fish oil Allergy Unknown Verified 09/16/16 09:23 Iodinated Contrast Media - Allergy Rash/Hives Verified 09/16/16 09:23 Oral and [Iodinated Contrast Media - IV Dye] shellfish derived Allergy Rash/Hives Verified 09/16/16 09:23 warfarin sodium Allergy Unknown Verified 03/14/17 09:23 [From Coumadin] Review of Systems ROS Statement: Those systems with pertinent positive or pertinent negative responses have been documented in the HPI. ROS Other: All systems not noted in ROS Statement are negative. Past Medical History Past Medical History: Atrial Fibrillation, Heart Failure, Diabetes Mellitus, Hypertension, Renal Disease, Skin Disorder Additional Past Medical History / Comment(s): skin CA, "/PT STATED NEVER HAD HIGH BP", BRONCHITS/BRONCHOSPASM JUN 2016 History of Any Multi-Drug Resistant Organisms: None Reported Past Surgical History: AICD, Cholecystectomy, Hernia Repair Additional Past Surgical History / Comment(s): defibrillator, cataracts removed , skin CA removed from face Past Anesthesia/Blood Transfusion Reactions: No Reported Reaction Type of Cardiac Device: AICD Device Placement Date:: 07-28-11 Past Psychological History: No Psychological Hx Reported Additional Psychological History / Comment(s): Pt resides with his spouse of 53 yrs. He is independent. He drives. Smoking Status: Never smoker Past Alcohol Use History: None Reported Past Drug Use History: None Reported - Past Family History Mother History Unknown: Yes Additional Family Medical History / Comment(s): Pt does not know parents history -he was raised in foster care. Son(s) Family Medical History: AFIB Additional Family Medical History / Comment(s): son had heart transplant General Exam - General Exam Comments Initial Comments: GENERAL: Patient is well-developed and well-nourished. Patient is nontoxic and well- hydrated and is in distress. ENT: Neck is soft and supple. No significant lymphadenopathy is noted. Oropharynx is clear. Moist mucous membranes. Neck has full range of motion without eliciting any pain. EYES: The sclera were anicteric and conjunctiva were pink and moist. Extraocular movements were intact and pupils were equal round and reactive to light. Eyelids were unremarkable. PULMONARY: Unlabored respirations. Good breath sounds bilaterally. Patient has expiratory wheezing diffusely CARDIOVASCULAR: There is a regular rate and rhythm without any murmurs gallops or rubs. ABDOMEN: Soft and nontender with normal bowel sounds. No palpable organomegaly was noted. There is no palpable pulsatile mass. SKIN: Skin is clear with no lesions or rashes and otherwise unremarkable. NEUROLOGIC: Patient is alert and oriented 2. Cranial nerves II through XII are grossly intact. Motor and sensory are also intact. Normal speech, volume and content. Symmetrical smile. MUSCULOSKELETAL: Normal extremities with adequate strength and full range of motion. Minimal edema No calf tenderness. LYMPHATICS: No significant lymphadenopathy is noted PSYCHIATRIC: Normal psychiatric evaluation. Course Vital Signs 09/16/16 09/16/16 09/16/16 09:14 09:41 10:34 Pulse Rate 108 H 86 Respiratory 22 22 16 Rate Blood Pressure 100/60 102/59 O2 Sat by Pulse 100 95 Oximetry Medical Decision Making - Medical Decision Making EKG shows atrial fibrillation at 94 bpm QRS is under 26 QT interval 400 QTC is 500. Patient's EKG shows no ST segment elevation. - Lab Data Result diagrams: 09/16/16 09:25 09/16/16 09:25 Lab Results 09/16/16 09/16/16 09/16/16 Range/Units 09:25 09:25 09:25 WBC 4.0 (3.8-10.6) k/uL RBC 3.87 L (4.30-5.90) m/uL Hgb 11.3 L (13.0-17.5) gm/dL Hct 35.1 L (39.0-53.0) % MCV 90.6 (80.0-100.0) fL MCH 29.1 (25.0-35.0) pg MCHC 32.2 (31.0-37.0) g/dL RDW 16.3 H (11.5-15.5) % Plt Count 177 (150-450) k/uL Neutrophils % (Manual) 75.0 % Band Neutrophils % 6.0 % Lymphocytes % (Manual) 12.0 % Monocytes % (Manual) 6.0 % Eosinophils % (Manual) 1.0 % Neutrophils # (Manual) 3.2 (1.3-7.7) k/uL Lymphocytes # (Manual) 0.5 L (1.0-4.8) k/uL Monocytes # (Manual) 0.2 (0-1.0) k/uL Eosinophils # (Manual) 0.0 (0-0.7) k/uL Nucleated RBCs 0 (0-0) /100 WBC Manual Slide Review Performed Toxic Granulation Present Poikilocytosis (manual Present Anisocytosis Slight PT (9.0-12.0) sec INR (<1.1) APTT (22.0-30.0) sec Sodium 136 L (137-145) mmol/L Potassium 5.0 (3.5-5.1) mmol/L Chloride 98 (98-107) mmol/L Carbon Dioxide 25 (22-30) mmol/L Anion Gap 13 mmol/L BUN 64 H (9-20) mg/dL Creatinine 3.84 H (0.66-1.25) mg/dL Est GFR (MDRD) Af Amer 18 (>60 ml/min/1.73 sqM) Est GFR (MDRD) Non-Af 15 (>60 ml/min/1.73 sqM) Glucose 142 H (74-99) mg/dL Calcium 7.9 L (8.4-10.2) mg/dL Magnesium 2.1 (1.6-2.3) mg/dL Total Bilirubin 2.0 H (0.2-1.3) mg/dL AST 59 (17-59) U/L ALT 86 H (21-72) U/L Alkaline Phosphatase 175 H (38-126) U/L Total Creatine Kinase 207 H (55-170) U/L CK-MB (CK-2) 4.3 H* (0.0-2.4) ng/mL CK-MB (CK-2) Rel Index 2.1 Troponin I 0.106 H* (0.000-0.034) ng/mL NT-Pro-B Natriuret Pep pg/mL Total Protein 5.4 L (6.3-8.2) g/dL Albumin 2.7 L (3.5-5.0) g/dL Urine Color Urine Appearance (Clear) Urine RBC (0-5) /hpf Urine WBC (0-5) /hpf Hyaline Casts (0-2) /lpf Urine Yeast (Budding) (None) /hpf Influenza Type A RNA (Not Detectd) Influenza Type B (PCR) (Not Detectd) 09/16/16 09/16/16 09/16/16 Range/Units 09:25 09:25 09:25 WBC (3.8-10.6) k/uL RBC (4.30-5.90) m/uL Hgb (13.0-17.5) gm/dL Hct (39.0-53.0) % MCV (80.0-100.0) fL MCH (25.0-35.0) pg MCHC (31.0-37.0) g/dL RDW (11.5-15.5) % Plt Count (150-450) k/uL Neutrophils % (Manual) % Band Neutrophils % % Lymphocytes % (Manual) % Monocytes % (Manual) % Eosinophils % (Manual) % Neutrophils # (Manual) (1.3-7.7) k/uL Lymphocytes # (Manual) (1.0-4.8) k/uL Monocytes # (Manual) (0-1.0) k/uL Eosinophils # (Manual) (0-0.7) k/uL Nucleated RBCs (0-0) /100 WBC Manual Slide Review Toxic Granulation Poikilocytosis (manual Anisocytosis PT 12.0 (9.0-12.0) sec INR 1.2 (<1.1) APTT 25.6 (22.0-30.0) sec Sodium (137-145) mmol/L Potassium (3.5-5.1) mmol/L Chloride (98-107) mmol/L Carbon Dioxide (22-30) mmol/L Anion Gap mmol/L BUN (9-20) mg/dL Creatinine (0.66-1.25) mg/dL Est GFR (MDRD) Af Amer (>60 ml/min/1.73 sqM) Est GFR (MDRD) Non-Af (>60 ml/min/1.73 sqM) Glucose (74-99) mg/dL Calcium (8.4-10.2) mg/dL Magnesium (1.6-2.3) mg/dL Total Bilirubin (0.2-1.3) mg/dL AST (17-59) U/L ALT (21-72) U/L Alkaline Phosphatase (38-126) U/L Total Creatine Kinase (55-170) U/L CK-MB (CK-2) (0.0-2.4) ng/mL CK-MB (CK-2) Rel Index Troponin I (0.000-0.034) ng/mL NT-Pro-B Natriuret Pep >57398 pg/mL Total Protein (6.3-8.2) g/dL Albumin (3.5-5.0) g/dL Urine Color Urine Appearance (Clear) Urine RBC (0-5) /hpf Urine WBC (0-5) /hpf Hyaline Casts (0-2) /lpf Urine Yeast (Budding) (None) /hpf Influenza Type A RNA Not Detected (Not Detectd) Influenza Type B (PCR) Not Detected (Not Detectd) 09/16/16 Range/Units 09:25 WBC (3.8-10.6) k/uL RBC (4.30-5.90) m/uL Hgb (13.0-17.5) gm/dL Hct (39.0-53.0) % MCV (80.0-100.0) fL MCH (25.0-35.0) pg MCHC (31.0-37.0) g/dL RDW (11.5-15.5) % Plt Count (150-450) k/uL Neutrophils % (Manual) % Band Neutrophils % % Lymphocytes % (Manual) % Monocytes % (Manual) % Eosinophils % (Manual) % Neutrophils # (Manual) (1.3-7.7) k/uL Lymphocytes # (Manual) (1.0-4.8) k/uL Monocytes # (Manual) (0-1.0) k/uL Eosinophils # (Manual) (0-0.7) k/uL Nucleated RBCs (0-0) /100 WBC Manual Slide Review Toxic Granulation Poikilocytosis (manual Anisocytosis PT (9.0-12.0) sec INR (<1.1) APTT (22.0-30.0) sec Sodium (137-145) mmol/L Potassium (3.5-5.1) mmol/L Chloride (98-107) mmol/L Carbon Dioxide (22-30) mmol/L Anion Gap mmol/L BUN (9-20) mg/dL Creatinine (0.66-1.25) mg/dL Est GFR (MDRD) Af Amer (>60 ml/min/1.73 sqM) Est GFR (MDRD) Non-Af (>60 ml/min/1.73 sqM) Glucose (74-99) mg/dL Calcium (8.4-10.2) mg/dL Magnesium (1.6-2.3) mg/dL Total Bilirubin (0.2-1.3) mg/dL AST (17-59) U/L ALT (21-72) U/L Alkaline Phosphatase (38-126) U/L Total Creatine Kinase (55-170) U/L CK-MB (CK-2) (0.0-2.4) ng/mL CK-MB (CK-2) Rel Index Troponin I (0.000-0.034) ng/mL NT-Pro-B Natriuret Pep pg/mL Total Protein (6.3-8.2) g/dL Albumin (3.5-5.0) g/dL Urine Color Brown Urine Appearance Turbid (Clear) Urine RBC >182 H (0-5) /hpf Urine WBC >182 H (0-5) /hpf Hyaline Casts 391 H (0-2) /lpf Urine Yeast (Budding) Many H (None) /hpf Influenza Type A RNA (Not Detectd) Influenza Type B (PCR) (Not Detectd) Disposition Clinical Impression: Chronic renal failure, Urinary tract infection, Acute exacerbation of chronic obstructive pulmonary disease Disposition: ADMITTED IP TO THIS HOSP Referrals: Jose Farah MD [Primary Care Provider] - 1-2 days Time of Disposition: 11:04
[2016-09-16 10:00] LABS: INR 1.2 (<1.1); Partial Thromboplastin Time 25.6 sec (22.0-30.0); Particle Count 643540; RBC,Urine >182 /hpf (0-5); WBC,Urine >182 /hpf (0-5)
[2016-09-16 10:05] LABS: Calcium 7.9 mg/dL (8.4-10.2); Magnesium 2.1 mg/dL (1.6-2.3); Total Protein 5.4 g/dL (6.3-8.2)
[2016-09-16 10:07] LABS: Appearance,Urine Turbid (Clear)
[2016-09-16 10:08] LABS: UA Billing (MACRO vs. MICRO) MICRO
--- NOTE | 2016-09-16 10:17 | XR ---
EXAMINATION TYPE: XR chest 2V DATE OF EXAM: 09/16/2016 10:11 AM COMPARISON: Prior chest x-ray September 01, 2016. HISTORY: Generalized weakness and productive cough. TECHNIQUE: Frontal and lateral views of the chest are obtained. FINDINGS: There is stable right internal jugular dual-lumen dialysis catheter. There is no focal air space opacity, pleural effusion, or pneumothorax seen. The cardiac silhouette size remains enlarged with a pacemaker/AICD. The osseous structures are intact. IMPRESSION: Cardiomegaly without acute pulmonary process currently.
[2016-09-16 10:33] LABS: Anisocytosis Slight; Aty Lym Flag Slight; CH 29.2; CHCM 32.5; HCT 35.1 % (39.0-53.0); HDW 2.68; HGB 11.3 gm/dL (13.0-17.5); Immature Gran Flag Moderate; MCH 29.1 pg (25.0-35.0); MCHC 32.2 g/dL (31.0-37.0); MCV 90.6 fL (80.0-100.0); Mean Platelet Volume 9.3; RBC 3.87 m/uL (4.30-5.90); RDW 16.3 % (11.5-15.5); WBC (Perox) 4.06
[2016-09-16 10:34] LABS: Add Differential Manual Differential
[2016-09-16 10:37] LABS: Manual Review Performed; Nucleated Red Blood Cells 0 /100 WBC (0-0); Total Cells Counted 100; Toxic Granulation Present
[2016-09-16 10:48] LABS: Creatine Kinase MB 4.3 ng/mL (0.0-2.4); Troponin I 0.106 ng/mL (0.000-0.034)
[2016-09-16] MEDS ORDERED: ACETAMINOPHEN TAB 500 MG TAB PO STA (10:48)
[2016-09-16] MEDS: IPRATROPIUM-ALBUTEROL 3 ML NEB INHALATION SCH ×3 (12:39→21:06)
[2016-09-16] MEDS: methylPREDNISolone SOD SUCCI 125 MG/2 ML VIAL IV SCH (15:58)
[2016-09-16] MEDS: MIDODRINE 5 MG TAB PO SCH (16:15)
--- NOTE | 2016-09-16 17:16 | P.CNPUL ---
History of Present Illness Consult date: 09/16/16 Requesting physician: Jose Farah Reason for consult: COPD Chief complaint: Shortness of breath History of present illness: This is a very pleasant 81-year-old gentleman who follows with Dr. Whitehead as his primary care physician. 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 He also has a history of chronic obstructive pulmonary disease. He has had issues with previous pleural effusions and had undergone thoracentesis in the past. He recently had a pseudomonas aeruginosa pulmonary infection one month ago and was discharged 09/10/2016 to an [email or web address] According to his he was having a good day yesterday. He was up ambulating with the staff to set up in the chair for many hours. After approximate 5:00 p.m. he started having issues with cough and congestion. He did have issues with hypoglycemia as well. He did have low O2 saturations according to the staff and increased shortness of breath and was transferred here to [facility] approximate 9:00 this morning. The patient himself is somewhat of a poor historian. His complaints are vague. He does have some shortness of breath with minimal exertion. Dry nonproductive cough. He denies any chest pain palpitations, dizziness or lightheadedness. His chest x-ray reveals no acute pulmonary process. Maintain O2 saturations in the 90s on 2 L/m per nasal cannula. Afebrile. No leukocytosis. His influenza screen is negative. Current creatinine 3.84. He had a troponin of 0.106. ProBNP greater than 35, 000. He is hemodynamically stable. He is to receive dialysis today. Review of Systems ROS unobtainable: due to mental status Past Medical History Past Medical History: Atrial Fibrillation, Heart Failure, Diabetes Mellitus, Hypertension, Renal Disease, Skin Disorder Additional Past Medical History / Comment(s): Pt recently admitted to [facility] on 04/21 with pneumonia/ influenza B. He was also started on dialysis at that time per his spouse. He was discharged to [facility] for rehab. Other Hx: Hemodialysis Thu//Thu, chronic mujica lately, cardiomyopathy, R elbow and coccyx wounds currently, IDDM type II, spouse denies pt ever having HTN, bronchitis, bronchospasms, skin cancer with removal. History of Any Multi-Drug Resistant Organisms: None Reported Past Surgical History: AICD, Cholecystectomy, Hernia Repair Additional Past Surgical History / Comment(s): defibrillator, cataracts removed , skin CA removed from face, colonoscopy, L inguinal hernia repair. Past Anesthesia/Blood Transfusion Reactions: No Reported Reaction Type of Cardiac Device: AICD Device Placement Date:: 07-28-11 Past Psychological History: No Psychological Hx Reported Additional Psychological History / Comment(s): Pt is now at [facility] for rehab. Spouse states yesterday, pt walked 160 feet with a walker before becoming ill. Smoking Status: Never smoker Past Alcohol Use History: None Reported Past Drug Use History: None Reported - Past Family History Mother History Unknown: Yes Additional Family Medical History / Comment(s): Pt does not know parents history -he was raised in foster care. Son(s) Family Medical History: AFIB Additional Family Medical History / Comment(s): son had heart transplant Medications and Allergies Home Medications Medication Instructions Recorded Confirmed Type Digoxin [Lanoxin] 125 mcg PO Q48H 09/03/14 09/16/16 History Insulin Detemir [Levemir Flextouch] 22 units SQ DAILY@0700 09/03/14 09/16/16 History Lovastatin [Mevacor] 40 mg PO HS@2100 09/03/14 09/16/16 History Multivitamins, Thera [Multivitamin] 1 tab PO DAILY@1700 09/03/14 09/16/16 History hydrALAZINE HCL [Apresoline] 25 mg PO TID@0600,1400,2100 09/03/14 09/16/16 History Apixaban [Eliquis] 2.5 mg PO BID@0800,1700 01/18/16 09/16/16 History Isosorbide Dinitrate [Isordil] 10 mg PO TID 01/18/16 09/16/16 History Rivastigmine Tartrate 1.5 mg PO BID@0800,1700 01/18/16 09/16/16 History [Rivastigmine] Insulin Aspart [NovoLOG Flexpen] See Protocol SQ TID@0700,1100,1730 06/23/16 History Dorzolamide/Timolol/Pf [Cosopt Pf 1 applicator BOTH EYES 08/15/16 09/16/16 History 2%/5% Ophth Droperette] BID@0800,1700 Furosemide [Lasix] 40 mg PO DAILY@0600 08/15/16 09/16/16 History Acetaminophen Tab [Tylenol Tab] 650 mg PO Q4H PRN 09/16/16 09/16/16 History Amiodarone [Cordarone] 200 mg PO BID@0800,1700 09/16/16 09/16/16 History Bisacodyl 10 mg RECTAL DAILY PRN 09/16/16 09/16/16 History Docusate [Colace] 100 mg PO BID@0800,1700 09/16/16 09/16/16 History Ipratropium-Albuterol Nebulize 3 ml INHALATION RT-QID PRN 09/16/16 09/16/16 History [Duoneb 0.5 mg-3 mg/3 ml Soln] Magnesium Hydroxide [Milk of 2,400 mg PO DAILY PRN 09/16/16 09/16/16 History Magnesia] Megestrol [Megace] 400 mg PO DAILY@0800 09/16/16 09/16/16 History Metoprolol Succinate (ER) [Toprol 50 mg PO DAILY@1700 09/16/16 09/16/16 History XL] Midodrine [ProAmatine] 5 mg PO TID@0700,1100,1730 09/16/16 09/16/16 History Pantoprazole [Protonix] 40 mg PO DAILY@0800 09/16/16 09/16/16 History guaiFENesin SYRUP 100MG/5ML 200 mg PO Q4H PRN 09/16/16 09/16/16 History [Robitussin] Allergies Allergy/AdvReac Type Severity Reaction Status Date / Time fish oil Allergy Unknown Verified 09/16/16 09:23 Iodinated Contrast Media - Allergy Rash/Hives Verified 09/16/16 09:23 Oral and [Iodinated Contrast Media - IV Dye] shellfish derived Allergy Rash/Hives Verified 09/16/16 09:23 warfarin sodium Allergy Unknown Verified 09/16/16 09:23 [From Coumadin] Physical Exam Vitals: Vital Signs Temp Pulse Pulse Resp BP BP Pulse Ox 09/16/16 13:00 97.6 F 110 H 18 109/60 93 L 09/16/16 12:52 110 H 09/16/16 12:42 101 H 18 100/58 97 09/16/16 12:40 110 H 94 L 09/16/16 11:35 101 H 18 100/58 97 Intake and Output 09/16/16 09/16/16 09/16/16 06:59 14:59 22:59 Intake Total 80 Output Total 300 Balance -220 Intake: Amount of Fluid Infused ( 80 ml) Output: Stool 300 Other: Weight 51.71 kg Patient Weight 09/17/16 06:59 Weight 51.71 kg GENERAL EXAM: Cachectic. Weak. Alert, comfortable in no apparent distress. HEAD: Normocephalic. EYES: Normal reaction of pupils, equal size. NOSE: Clear with pink turbinates. THROAT: No erythema or exudates. NECK: No masses, no JVD. CHEST: No chest wall deformity. LUNGS: Equal air entry with no crackles, wheeze, rhonchi or dullness. Diminished. CVS: S1 and S2 normal with no audible mumurs, regular rhythm. ABDOMEN: No hepatosplenomegaly, normal bowel sounds, no guarding or rigidity. SKIN: Pressure ulcers. Extremities: There is 1-2+ lower extremity peripheral edema. No clubbing, no cyanosis. Peripheral pulses are intact. Results - Laboratory Findings CBC and BMP: 09/16/16 09:25 09/16/16 09:25 PT/INR, D-dimer PT 12.0 sec (9.0-12.0) 09/16/16 09:25 INR 1.2 (<1.1) 09/16/16 09:25 - Diagnostic Findings Chest x-ray: image reviewed Assessment and Plan Plan: Impression: #1 Dyspnea, multifactorial in a patient found to have evidence of fluid volume overload, suspect COPD exacerbation, suspect acute exacerbation of chronic systolic congestive heart failure. No clear evidence of pneumonia. Influenza screen negative. #2 Acute exacerbation of chronic systolic congestive heart failure in a patient with severe ischemic cardiomyopathy and estimated ejection fraction less than 20 %. #3 Acute exacerbation of chronic obstructive pulmonary disease. #4 End-stage renal disease, receiving hemodialysis Thursday. #5 Severe ischemic cardiomyopathy, status post AICD placement. #6 Chronic atrial fibrillation, anticoagulated with apixaban. #7 Hypertension. #8 Hyperlipidemia. #9 Diabetes mellitus. #10 Benign prostatic hypertrophy. #11 Recent admission for pseudomonas aeruginosa pneumonia, complicated by influenza. #12 Poor overall functional performance secondary to the above-mentioned multiple comorbidities. Plan: The patient was seen and evaluated by Dr. Hernandez. His chest x-ray and labs were reviewed. We'll continue with bronchodilators and empiric antibiotics. Continue IV Solu-Medrol. He is currently receiving his dialysis treatment for the day. We'll obtain a sputum sample if possible based on his recent history of Pseudomonas and will adjust antibiotics accordingly. We will continue to follow and make further recommendations based on his clinical status.
[2016-09-16] MEDS ORDERED: IPRATROPIUM-ALBUTEROL 3 ML NEB INHALATION PRN (19:48)
[2016-09-16] MEDS ORDERED: MAGNESIUM HYDROXIDE 2,400 MG/10 ML CUP PO PRN (19:48)
[2016-09-16] MEDS ORDERED: ALPRAZolam 0.25 MG TAB PO PRN (19:48)
[2016-09-16] MEDS ORDERED: BISACODYL 10 MG SUPP RECTAL PRN (19:48)
[2016-09-16] MEDS: ACETAMINOPHEN TAB 325 MG TAB PO PRN (20:35)
[2016-09-16 21:11] LABS: Glucose,Whole Blood 170 mg/dL (75-99)
[2016-09-16 22:26] LABS: Hemoglobin A1C 8.3 % (4.2-6.1)
[2016-09-16] MEDS: ISOSORBIDE DINITRATE 10 MG TAB PO SCH (22:37)
[2016-09-16] MEDS: hydrALAZINE HCL 25 MG TAB PO SCH (22:37)
[2016-09-16] MEDS: ATORVASTATIN 10 MG TAB PO SCH (22:38)
[2016-09-17] MEDS: methylPREDNISolone SOD SUCCI 125 MG/2 ML VIAL IV SCH ×4 (00:56→17:11)
[2016-09-17] MEDS: NYSTATIN 100,000 UNIT/ML SUSP 500,000 UNIT/5 ML CUP PO SCH ×5 (01:30→22:48)
[2016-09-17] MEDS: ACETAMINOPHEN TAB 325 MG TAB PO PRN (04:51)
[2016-09-17] MEDS ORDERED: FUROSEMIDE 40 MG TAB PO SCH (06:00)
[2016-09-17] MEDS: INSULIN DETEMIR 100 UNIT/ML 10 ML VIAL SQ SCH (06:27)
[2016-09-17] MEDS: MIDODRINE 5 MG TAB PO SCH ×3 (06:27→17:10)
[2016-09-17] MEDS: hydrALAZINE HCL 25 MG TAB PO SCH ×2 (06:29→13:31)
[2016-09-17 06:44] LABS: Glucose,Whole Blood 302 mg/dL (75-99)
[2016-09-17] MEDS: INSULIN LISPRO (humaLOG) 300 UNIT/3 ML VIAL SQ SCH ×3 (07:01→22:30)
--- NOTE | 2016-09-17 07:54 | P.HPIM ---
History of Present Illness H&P Date: 09/17/16 Chief Complaint: shortness of breath. This is a history of physical on an 81-year-old white male who was recently discharged for multiple diagnoses. He has an underlying history of severe cardio myopathy was recently treated for influenza B and pneumonia. He has struggled with elements of cardiorenal syndrome and has institute dialysis less than a month ago. He was transferred to the [facility] about a week ago and has now struggled with significant shortness of breath of sudden onset. He was dialyzed yesterday and has had significant improvement but is still weak. Prognosis is guarded secondary to severe cardio myopathy and atrial fibrillation. He has also underlying history of diabetes. No sniffing nausea or vomiting but there is significant weakness. Nephrology and pulmonology have been consulted. Review of Systems Constitutional: Reports weight gain Eyes: denies blurred vision, denies pain Ears, nose, mouth and throat: Denies headache, Denies sore throat Cardiovascular: Denies chest pain, Denies shortness of breath Respiratory: Reports cough Gastrointestinal: Denies abdominal pain, Denies diarrhea, Denies nausea, Denies vomiting Musculoskeletal: Denies myalgias Neurological: Denies numbness, Denies weakness Psychiatric: Denies anxiety, Denies depression Endocrine: Denies fatigue, Denies weight change Past Medical History Past Medical History: Atrial Fibrillation, Heart Failure, Diabetes Mellitus, Hypertension, Renal Disease, Skin Disorder Additional Past Medical History / Comment(s): Pt recently admitted to [facility] on 04/21 with pneumonia/ influenza B. He was also started on dialysis at that time per his spouse. He was discharged to [facility] for rehab. Other Hx: Hemodialysis Tue//Thu, chronic mujica lately, cardiomyopathy, R elbow and coccyx wounds currently, IDDM type II, spouse denies pt ever having HTN, bronchitis, bronchospasms, skin cancer with removal. History of Any Multi-Drug Resistant Organisms: None Reported Past Surgical History: AICD, Cholecystectomy, Hernia Repair Additional Past Surgical History / Comment(s): defibrillator, cataracts removed , skin CA removed from face, colonoscopy, L inguinal hernia repair. Past Anesthesia/Blood Transfusion Reactions: No Reported Reaction Type of Cardiac Device: AICD Device Placement Date:: 07-28-11 Past Psychological History: No Psychological Hx Reported Additional Psychological History / Comment(s): Pt is now at [facility] for rehab. Spouse states yesterday, pt walked 160 feet with a walker before becoming ill. Smoking Status: Never smoker Past Alcohol Use History: None Reported Past Drug Use History: None Reported - Past Family History Mother History Unknown: Yes Additional Family Medical History / Comment(s): Pt does not know parents history -he was raised in foster care. Son(s) Family Medical History: AFIB Additional Family Medical History / Comment(s): son had heart transplant Medications and Allergies Home Medications Medication Instructions Recorded Confirmed Type Digoxin [Lanoxin] 125 mcg PO Q48H 09/03/14 09/16/16 History Insulin Detemir [Levemir Flextouch] 22 units SQ DAILY@0700 09/03/14 09/16/16 History Lovastatin [Mevacor] 40 mg PO HS@2100 09/03/14 09/16/16 History Multivitamins, Thera [Multivitamin] 1 tab PO DAILY@1700 09/03/14 09/16/16 History hydrALAZINE HCL [Apresoline] 25 mg PO TID@0600,1400,2100 09/03/14 09/16/16 History Apixaban [Eliquis] 2.5 mg PO BID@0800,1700 01/18/16 09/16/16 History Isosorbide Dinitrate [Isordil] 10 mg PO TID 01/18/16 09/16/16 History Rivastigmine Tartrate 1.5 mg PO BID@0800,1700 01/18/16 09/16/16 History [Rivastigmine] Insulin Aspart [NovoLOG Flexpen] See Protocol SQ TID@0700,1100,1730 06/23/16 History Dorzolamide/Timolol/Pf [Cosopt Pf 1 applicator BOTH EYES 08/15/16 09/16/16 History 2%/5% Ophth Droperette] BID@0800,1700 Furosemide [Lasix] 40 mg PO DAILY@0600 08/15/16 09/16/16 History Acetaminophen Tab [Tylenol Tab] 650 mg PO Q4H PRN 09/16/16 09/16/16 History Amiodarone [Cordarone] 200 mg PO BID@0800,1700 09/16/16 09/16/16 History Bisacodyl 10 mg RECTAL DAILY PRN 09/16/16 09/16/16 History Docusate [Colace] 100 mg PO BID@0800,1700 09/16/16 09/16/16 History Ipratropium-Albuterol Nebulize 3 ml INHALATION RT-QID PRN 09/16/16 09/16/16 History [Duoneb 0.5 mg-3 mg/3 ml Soln] Magnesium Hydroxide [Milk of 2,400 mg PO DAILY PRN 09/16/16 09/16/16 History Magnesia] Megestrol [Megace] 400 mg PO DAILY@0800 09/16/16 09/16/16 History Metoprolol Succinate (ER) [Toprol 50 mg PO DAILY@1700 09/16/16 09/16/16 History XL] Midodrine [ProAmatine] 5 mg PO TID@0700,1100,1730 09/16/16 09/16/16 History Pantoprazole [Protonix] 40 mg PO DAILY@0800 09/16/16 09/16/16 History guaiFENesin SYRUP 100MG/5ML 200 mg PO Q4H PRN 09/16/16 09/16/16 History [Robitussin] Allergies Allergy/AdvReac Type Severity Reaction Status Date / Time fish oil Allergy Unknown Verified 09/16/16 09:23 Iodinated Contrast Media - Allergy Rash/Hives Verified 09/16/16 09:23 Oral and [Iodinated Contrast Media - IV Dye] shellfish derived Allergy Rash/Hives Verified 09/16/16 09:23 warfarin sodium Allergy Unknown Verified 09/16/16 09:23 [From Coumadin] Physical Exam Vitals: Vital Signs Temp Pulse Pulse Resp BP BP Pulse Ox 09/17/16 04:00 97.9 F 102 H 16 95/54 98 09/17/16 00:00 98.2 F 92 18 90/49 97 09/16/16 21:16 80 09/16/16 21:06 80 09/16/16 20:00 98.0 F 82 20 90/52 96 09/16/16 17:00 59 L 09/16/16 16:52 56 L 96 09/16/16 16:00 97.6 F 112 H 18 88/54 98 09/16/16 13:00 97.6 F 110 H 18 109/60 93 L 09/16/16 12:52 110 H 09/16/16 12:42 101 H 18 100/58 97 09/16/16 12:40 110 H 94 L 09/16/16 11:35 101 H 18 100/58 97 Intake and Output 09/16/16 09/17/16 09/17/16 22:59 06:59 14:59 Other: Voiding Method Indwelling Catheter Indwelling Catheter # Voids 0 0 Weight 53.7 kg - Constitutional General appearance: thin - EENT Eyes: EOMI - Neck Neck: no lymphadenopathy - Respiratory Respiratory: bilateral: diminished - Cardiovascular Rhythm: irregularly irregular Heart sounds: normal: S1, S2 - Gastrointestinal General gastrointestinal: soft, no tenderness - Musculoskeletal Musculoskeletal: generalized weakness - Psychiatric Psychiatric: A&O x's 3 Results CBC & Chem 7: 09/16/16 09:25 09/16/16 09:25 Labs: Abnormal Lab Results - Last 24 Hours (Table) 09/16/16 09/17/16 Range/Units 20:59 06:23 POC Glucose (mg/dL) 170 H 302 H (75-99) mg/dL Thrombosis Risk Factor Assmnt - Choose All That Apply Any of the Below Risk Factors Present?: Yes Each Factor Represents 1 point: Serious lung disease incl. pneumonia (< 1month) Other Risk Factors: Yes Each Risk Factor Represents 3 Points: Age 75 years or older Other congenital or acquired thrombophilia - If yes, enter type in comment: No Thrombosis Risk Factor Assessment Total Risk Factor Score: 4 Thrombosis Risk Factor Assessment Level: Moderate Risk Assessment and Plan (1) Acute exacerbation of chronic obstructive pulmonary disease Status: Acute (2) Chronic renal failure Status: Acute (3) AICD (automatic cardioverter/defibrillator) present Status: Acute (4) Afib Status: Acute (5) Nonischemic cardiomyopathy Status: Acute Plan: Go ahead reconcile home medications. The patient has been placed on appropriate antibiotic treatment secondary to proceed UTI on ER about evaluation. Pulmonology and nephrology have been consulted for dialysis. Clinically he is significantly improved since the admission at his last discharge appearance from his last hospitalization but he seems significantly weak today. Continue dialysis. Check CBC and CMP in a.m. We'll go ahead and follow closely with consultants. Time with Patient: Greater than 30
[2016-09-17] MEDS: IPRATROPIUM-ALBUTEROL 3 ML NEB INHALATION SCH ×4 (08:58→20:50)
[2016-09-17] MEDS: APIXABAN 2.5 MG TABLET PO SCH ×2 (09:12→17:11)
[2016-09-17] MEDS: AMIODARONE 200 MG TAB PO SCH ×2 (09:12→17:11)
[2016-09-17] MEDS: DOCUSATE 100 MG CAP PO SCH ×2 (09:13→17:11)
[2016-09-17] MEDS: ISOSORBIDE DINITRATE 10 MG TAB PO SCH ×2 (09:13→17:12)
[2016-09-17] MEDS: PANTOPRAZOLE 40 MG TABLET PO SCH (09:13)
[2016-09-17] MEDS: DORZOLAMIDE-TIMOLOL 2-0.5% DROPS 10 ML BTL BOTH EYES SCH ×2 (09:14→17:12)
[2016-09-17] MEDS: MEGESTROL 400 MG/10 ML CUP PO SCH (09:14)
[2016-09-17] MEDS: DONEPEZIL 10 MG TAB PO SCH (09:18)
[2016-09-17 11:48] LABS: Glucose,Whole Blood 388 mg/dL (75-99)
--- NOTE | 2016-09-17 15:42 | CONS ---
DATE OF CONSULTATION: 09/17/16 REASON FOR CONSULTATION: Renal failure. HISTORY OF PRESENT ILLNESS: Patient is an 81-year-old male with history of cardiomyopathy and chronic CHF who was started on dialysis last admission for severe cardiorenal syndrome and volume overload. He currently remains on dialysis and has been dialyzed as outpatient for a little bit more than a week. He came into the hospital with complaints of shortness of breath which started fairly suddenly yesterday. He denied any chest pain. Patient was dialyzed last night. We had about 2.6 liters of ultrafiltration yesterday. He states he is feeling much better today. There is no fever, cough; no significant nausea or vomiting. Appetite is slightly improved than about 3 weeks ago. PAST MEDICAL HISTORY: 1. Severe cardiomyopathy. 2. CHF. 3. Fluid overload. 4. Diabetes. 5. Atrial fibrillation. 6. History of skin cancer, status post removal. PAST SURGICAL HISTORY: 1. AICD placement. 2. Cholecystectomy. 3. Hernia repair. 4. Cataract surgery. 5. Colonoscopy. 6. Left inguinal hernia repair. 7. Perm-A-Cath placement last admission. SOCIAL HISTORY: Negative for smoking, drug abuse or alcohol abuse. Medications prior to admission included: 1. Insulin. 2. Lanoxin. 3. Hydralazine. 4. Eliquis. 5. Isordil. 6. Lasix. 7. Cordarone. 8. Colace. 9. Megace. 10. Milk of Magnesia. 11. Toprol. 12. Midodrine. 13. Protonix. ALLERGIES include: 1. IV DYE. 2. SHELLFISH. 3. COUMADIN. REVIEW OF SYSTEMS: As per HPI. Other systems negative. On examination, patient is currently awake, comfortable. He is not in any acute distress. Blood pressure is 78/45 Previous blood pressure was 135/62 early this morning. EXAMINATION OF THE HEART: S1 and S2. EXAMINATION OF THE LUNGS: Decreased breath sounds in bases. ABDOMEN: Soft, nontender. Examination of lower extremities shows edema 2+ bilaterally, which is slightly improved from about 3 weeks ago. The right groin hematoma has also improved. Patient is moving all 4 extremities. Labs show sodium of 136, potassium 5.0, chloride 98. Hemoglobin 11.3 g/dL. ASSESSMENT: 1. Acute kidney injury, currently hemodialysis-dependent and dialyzed on a Thursday, , Thursday schedule. Patient was dialyzed yesterday. We will dialyze him today as well as tomorrow to help with the volume overload. He has an indwelling Clarke catheter with urine output of about 400 mL. He should be maintained on Lasix. I will increase the dose to 60 mg IV q.12 hours. 2. Volume overload. Expect improvement with dialysis. 3. Type 2 diabetes. 4. Severe cardiomyopathy with ejection fraction of less than 20% with moderate to severe tricuspid regurgitation. PLAN: Repeat hemodialysis today as well as in a.m. Change Lasix to IV while patient is in the hospital. Repeat labs in a.m. Thank you for this consultation. Will continue to follow the patient with you during his hospitalization. CHIKI
--- NOTE | 2016-09-17 15:43 | P.PN ---
Subjective This is a very pleasant 81-year-old gentleman who follows with Dr. Whitehead as his primary care physician. 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 He also has a history of chronic obstructive pulmonary disease. He has had issues with previous pleural effusions and had undergone thoracentesis in the past. He recently had a pseudomonas aeruginosa pulmonary infection one month ago and was discharged 09/10/2016 to an [facility]. According to his he was having a good day yesterday. He was up ambulating with the staff to set up in the chair for many hours. After approximate 5:00 p.m. he started having issues with cough and congestion. He did have issues with hypoglycemia as well. He did have low O2 saturations according to the staff and increased shortness of breath and was transferred here to [facility] approximate 9:00 this morning. The patient himself is somewhat of a poor historian. His complaints are vague. He does have some shortness of breath with minimal exertion. Dry nonproductive cough. He denies any chest pain palpitations, dizziness or lightheadedness. His chest x-ray reveals no acute pulmonary process. Maintain O2 saturations in the 90s on 2 L/m per nasal cannula. Afebrile. No leukocytosis. His influenza screen is negative. Current creatinine 3.84. He had a troponin of 0.106. ProBNP greater than 35, 000. He is hemodynamically stable. He is to receive dialysis today. The patient is seen again today 09/17/2016 in follow-up. He is more awake and alert today as compared to yesterday. He denies any worsening shortness of breath at this time. He has a dry nonproductive cough. No chills or night sweats. No chest pain or palpitations. He has been maintaining good O2 saturations in the upper 90s on 2 L/m per nasal cannula. He is afebrile. He has been maintained on Lasix 60 mg IV every 12 hours. He is also on bronchodilators, IV Solu-Medrol and antibiotics in the form of ceftriaxone. Objective - Vital Signs Vital signs: Vital Signs Temp 98.0 F 09/17/16 11:24 Pulse 63 09/17/16 11:24 Resp 24 09/17/16 11:24 BP 78/45 09/17/16 11:24 Pulse Ox 98 09/17/16 11:24 Intake & Output 09/16/16 09/17/16 09/17/16 18:59 06:59 18:59 Intake Total 80 400 Output Total 300 Balance -220 400 Weight 51.71 kg 53.7 kg Intake: Amount of Fluid Infused ( 80 ml) Oral 400 Output: Stool 300 Other: Voiding Method Indwelling Catheter Indwelling Catheter # Voids 0 - Exam GENERAL EXAM: Cachectic. Weak. Alert, comfortable in no apparent distress. HEAD: Normocephalic. EYES: Normal reaction of pupils, equal size. NOSE: Clear with pink turbinates. THROAT: No erythema or exudates. NECK: No masses, no JVD. CHEST: No chest wall deformity. LUNGS: Equal air entry with no crackles, wheeze, rhonchi or dullness. Diminished. CVS: S1 and S2 normal with no audible mumurs, regular rhythm. ABDOMEN: No hepatosplenomegaly, normal bowel sounds, no guarding or rigidity. SKIN: Pressure ulcers. Extremities: There is 1-2+ lower extremity peripheral edema. No clubbing, no cyanosis. Peripheral pulses are intact. - Labs CBC & Chem 7: 09/16/16 09:25 09/16/16 09:25 Labs: Abnormal Lab Results - Last 24 Hours (Table) 09/16/16 09/17/16 09/17/16 Range/Units 20:59 06:23 11:46 POC Glucose (mg/dL) 170 H 302 H 388 H (75-99) mg/dL Assessment and Plan Plan: Impression: #1 Dyspnea, multifactorial in a patient found to have evidence of fluid volume overload, suspect COPD exacerbation, suspect acute exacerbation of chronic systolic congestive heart failure. No clear evidence of pneumonia. Influenza screen negative. 09/17/2016. The patient is more awake and alert today as compared to yesterday. He has more energy. He is less short of breath. No chest pain. #2 Acute exacerbation of chronic systolic congestive heart failure in a patient with severe ischemic cardiomyopathy and estimated ejection fraction less than 20 %. #3 Acute exacerbation of chronic obstructive pulmonary disease. #4 End-stage renal disease, receiving hemodialysis [facility] Thursday Saturday. #5 Severe ischemic cardiomyopathy, status post AICD placement. #6 Chronic atrial fibrillation, anticoagulated with apixaban. #7 Hypertension. #8 Hyperlipidemia. #9 Diabetes mellitus. #10 Benign prostatic hypertrophy. #11 Recent admission for pseudomonas aeruginosa pneumonia, complicated by influenza. #12 Poor overall functional performance secondary to the above-mentioned multiple comorbidities. Plan: The patient was seen and evaluated by Dr. Hernandez. The patient is improved today as compared to yesterday. We'll continue with his current medications. He remains anticoagulated on Eliquis. We will increase his activity as tolerated. We'll continue to follow.
[2016-09-17 16:26] LABS: Glucose,Whole Blood 126 mg/dL (75-99)
[2016-09-17] MEDS: MULTIVITAMINS, THERA 1 EACH TAB PO SCH (17:10)
[2016-09-17] MEDS: METOPROLOL SUCCINATE (ER) 50 MG TAB.ER.24H PO SCH (17:13)
[2016-09-17] MEDS ORDERED: HEPARIN SODIUM,PORCINE 5,000 UNIT/ML 1 ML VIAL ONE (17:30)
[2016-09-17 20:31] LABS: Glucose,Whole Blood 112 mg/dL (75-99)
[2016-09-17] MEDS: ATORVASTATIN 10 MG TAB PO SCH (22:48)
[2016-09-18] MEDS: hydrALAZINE HCL 25 MG TAB PO SCH ×4 (00:35→20:58)
[2016-09-18] MEDS: FUROSEMIDE 10 MG/ML 10 ML VIAL IV SCH ×3 (00:43→21:02)
[2016-09-18] MEDS: ISOSORBIDE DINITRATE 10 MG TAB PO SCH ×4 (00:43→21:02)
[2016-09-18] MEDS: methylPREDNISolone SOD SUCCI 125 MG/2 ML VIAL IV SCH ×5 (00:44→23:35)
[2016-09-18 05:39] LABS: Glucose,Whole Blood 187 mg/dL (75-99)
[2016-09-18 06:28] LABS: Anisocytosis Slight; CH 28.9; CHCM 32.2; HCT 33.9 % (39.0-53.0); HDW 2.64; HGB 10.6 gm/dL (13.0-17.5); MCH 28.3 pg (25.0-35.0); MCHC 31.3 g/dL (31.0-37.0); MCV 90.5 fL (80.0-100.0); Mean Platelet Volume 8.3; RBC 3.75 m/uL (4.30-5.90); RDW 16.6 % (11.5-15.5); WBC 9.3 k/uL (3.8-10.6)
[2016-09-18 06:37] LABS: Total Bilirubin 1.3 mg/dL (0.2-1.3); Total Protein 4.9 g/dL (6.3-8.2)
[2016-09-18] MEDS: MIDODRINE 5 MG TAB PO SCH ×3 (06:40→18:11)
[2016-09-18] MEDS: INSULIN LISPRO (humaLOG) 300 UNIT/3 ML VIAL SQ SCH ×5 (07:02→21:01)
[2016-09-18] MEDS: INSULIN DETEMIR 100 UNIT/ML 10 ML VIAL SQ SCH (07:02)
--- NOTE | 2016-09-18 07:51 | P.PN ---
Subjective Principal diagnosis: Respiratory distress with cardiorenal syndrome. This is a 81-year-old white male essentially readmitted for respiratory distress and renal failure. He has had dialysis for the past several days and has done quite well. Unfortunately, with his ischemic cardiopathy and history of atrial fibrillation he has multiple comorbidities which make it difficult for him to recover easily. He states much more energy but still difficulty standing. I am hopeful that we can get him back to rehabilitation in the next several days. Objective - Vital Signs Vital signs: Vital Signs Temp 97.3 F L 09/18/16 04:00 Pulse 68 09/18/16 04:00 Resp 16 09/18/16 04:00 BP 87/54 09/18/16 04:00 Pulse Ox 99 09/18/16 04:00 Intake & Output 09/17/16 09/18/16 09/18/16 18:59 06:59 18:59 Intake Total 400 Output Total 100 1 Balance 300 -1 Weight 50.5 kg Intake: Oral 400 Output: Urine 100 Stool 1 Other: Voiding Method Indwelling Catheter Indwelling Catheter - Constitutional General appearance: Present: thin - EENT Eyes: Absent: abnormal pupil - Neck Neck: Absent: lymphadenopathy - Respiratory Respiratory: bilateral: wheezing - Cardiovascular Rhythm: regular Heart sounds: normal: S1, S2 - Gastrointestinal General gastrointestinal: Present: soft. Absent: tenderness - Integumentary Integumentary: Absent: cellulitis - Labs CBC & Chem 7: 09/18/16 05:45 09/18/16 05:45 Labs: Abnormal Lab Results - Last 24 Hours (Table) 09/17/16 09/17/16 09/17/16 Range/Units 11:46 16:21 20:29 RBC (4.30-5.90) m/uL Hgb (13.0-17.5) gm/dL Hct (39.0-53.0) % RDW (11.5-15.5) % Sodium (137-145) mmol/L Carbon Dioxide (22-30) mmol/L BUN (9-20) mg/dL Creatinine (0.66-1.25) mg/dL Glucose (74-99) mg/dL POC Glucose (mg/dL) 388 H 126 H 112 H (75-99) mg/dL Calcium (8.4-10.2) mg/dL ALT (21-72) U/L Alkaline Phosphatase (38-126) U/L Total Protein (6.3-8.2) g/dL Albumin (3.5-5.0) g/dL 09/18/16 09/18/16 09/18/16 Range/Units 05:37 05:45 05:45 RBC 3.75 L (4.30-5.90) m/uL Hgb 10.6 L (13.0-17.5) gm/dL Hct 33.9 L (39.0-53.0) % RDW 16.6 H (11.5-15.5) % Sodium 134 L (137-145) mmol/L Carbon Dioxide 21 L (22-30) mmol/L BUN 68 H (9-20) mg/dL Creatinine 3.70 H (0.66-1.25) mg/dL Glucose 179 H (74-99) mg/dL POC Glucose (mg/dL) 187 H (75-99) mg/dL Calcium 8.0 L (8.4-10.2) mg/dL ALT 80 H (21-72) U/L Alkaline Phosphatase 149 H (38-126) U/L Total Protein 4.9 L (6.3-8.2) g/dL Albumin 2.4 L (3.5-5.0) g/dL Assessment and Plan (1) Acute exacerbation of chronic obstructive pulmonary disease Status: Acute (2) Chronic renal failure Status: Acute (3) AICD (automatic cardioverter/defibrillator) present Status: Acute (4) Afib Status: Acute (5) Nonischemic cardiomyopathy Status: Acute Plan: Continue dialysis. Appreciate pulmonology and nephrology input. Prognosis is guarded secondary to his multiple comorbidities and element of cardiorenal syndrome. Check CMP in a.m. Anticipate transfer to rehab in the next several days if continued improvement. Time with Patient: Less than 30
[2016-09-18] MEDS: IPRATROPIUM-ALBUTEROL 3 ML NEB INHALATION SCH ×4 (08:47→20:20)
[2016-09-18] MEDS: DORZOLAMIDE-TIMOLOL 2-0.5% DROPS 10 ML BTL BOTH EYES SCH ×2 (08:54→18:10)
[2016-09-18] MEDS: DONEPEZIL 10 MG TAB PO SCH (08:58)
[2016-09-18] MEDS: AMIODARONE 200 MG TAB PO SCH ×2 (08:58→18:10)
[2016-09-18] MEDS: DOCUSATE 100 MG CAP PO SCH ×2 (08:59→18:10)
[2016-09-18] MEDS: MEGESTROL 400 MG/10 ML CUP PO SCH (08:59)
[2016-09-18] MEDS: APIXABAN 2.5 MG TABLET PO SCH ×2 (08:59→18:10)
[2016-09-18] MEDS: NYSTATIN 100,000 UNIT/ML SUSP 500,000 UNIT/5 ML CUP PO SCH ×4 (08:59→21:00)
[2016-09-18] MEDS: PANTOPRAZOLE 40 MG TABLET PO SCH (08:59)
[2016-09-18] MEDS: DIGOXIN 125 MCG TAB PO SCH (09:28)
--- NOTE | 2016-09-18 09:31 | P.PN ---
Subjective Patient is seen in follow-up for acute kidney injury. Patient presented to the hospital with dyspnea. He does have systolic CHF with ejection fraction of 20% . He is currently dialysis dependent and is maintained on a Thursday schedule. He received an extra treatment yesterday. Currently sitting up in chair. Dyspnea is improved. No vomiting or diarrhea. Appetite is gradually improving. Vital signs are stable. General: The patient appeared well nourished and normally developed. HEENT: Head exam is unremarkable. Neck is without jugular venous distension. LUNGS: Breath sounds decreased. HEART: Rate and Rhythm are regular. First and second heart sounds normal. No murmurs, rubs or gallops. ABDOMEN: Abdominal exam reveals normal bowel sounds. Non-tender and non- distended. No evidence of peritonitis. EXTREMITITES: 1+ edema. Objective - Vital Signs Vital signs: Vital Signs Temp 97.4 F L 09/18/16 08:00 Pulse 92 09/18/16 09:01 Resp 16 09/18/16 08:00 BP 96/52 09/18/16 08:00 Pulse Ox 100 09/18/16 08:50 Intake & Output 09/17/16 09/18/16 09/18/16 18:59 06:59 18:59 Intake Total 400 236 Output Total 100 1 Balance 300 -1 236 Weight 50.5 kg Intake: Oral 400 236 Output: Urine 100 Stool 1 Other: Voiding Method Indwelling Catheter Indwelling Catheter - Labs CBC & Chem 7: 09/18/16 05:45 09/18/16 05:45 Labs: Abnormal Lab Results - Last 24 Hours (Table) 09/17/16 09/17/16 09/17/16 Range/Units 11:46 16:21 20:29 RBC (4.30-5.90) m/uL Hgb (13.0-17.5) gm/dL Hct (39.0-53.0) % RDW (11.5-15.5) % Sodium (137-145) mmol/L Carbon Dioxide (22-30) mmol/L BUN (9-20) mg/dL Creatinine (0.66-1.25) mg/dL Glucose (74-99) mg/dL POC Glucose (mg/dL) 388 H 126 H 112 H (75-99) mg/dL Calcium (8.4-10.2) mg/dL ALT (21-72) U/L Alkaline Phosphatase (38-126) U/L Total Protein (6.3-8.2) g/dL Albumin (3.5-5.0) g/dL 09/18/16 09/18/16 09/18/16 Range/Units 05:37 05:45 05:45 RBC 3.75 L (4.30-5.90) m/uL Hgb 10.6 L (13.0-17.5) gm/dL Hct 33.9 L (39.0-53.0) % RDW 16.6 H (11.5-15.5) % Sodium 134 L (137-145) mmol/L Carbon Dioxide 21 L (22-30) mmol/L BUN 68 H (9-20) mg/dL Creatinine 3.70 H (0.66-1.25) mg/dL Glucose 179 H (74-99) mg/dL POC Glucose (mg/dL) 187 H (75-99) mg/dL Calcium 8.0 L (8.4-10.2) mg/dL ALT 80 H (21-72) U/L Alkaline Phosphatase 149 H (38-126) U/L Total Protein 4.9 L (6.3-8.2) g/dL Albumin 2.4 L (3.5-5.0) g/dL Assessment and Plan Plan: Assessment: #1. Acute kidney injury currently hemodialysis dependent and maintained on a Thursday schedule. #2. Systolic CHF with ejection fraction of 20%. #3. Chronic hypotension related to underlying cardiac status. #4. Volume overload. Improving. Plan: Hemodialysis today with goal 2-3 L ultrafiltration as blood pressure tolerates. Maintain Midodrine. Check phosphorus level. Maintain Lasix 60 mg IV twice daily. Encouraged oral intake, particularly protein.
[2016-09-18 11:51] LABS: Glucose,Whole Blood 357 mg/dL (75-99)
[2016-09-18] MEDS ORDERED: INSULIN REGULAR 100 UNIT in SODIUM CHLORIDE 0.9% 100 ML IV SCH (14:00)
--- NOTE | 2016-09-18 14:53 | P.PN ---
Subjective This is a very pleasant 81-year-old gentleman who follows with Dr. Whitehead as his primary care physician. 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 He also has a history of chronic obstructive pulmonary disease. He has had issues with previous pleural effusions and had undergone thoracentesis in the past. He recently had a pseudomonas aeruginosa pulmonary infection one month ago and was discharged 09/10/2016 to an [facility]. According to his he was having a good day yesterday. He was up ambulating with the staff to set up in the chair for many hours. After approximate 5:00 p.m. he started having issues with cough and congestion. He did have issues with hypoglycemia as well. He did have low O2 saturations according to the staff and increased shortness of breath and was transferred here to [facility] approximate 9:00 this morning. The patient himself is somewhat of a poor historian. His complaints are vague. He does have some shortness of breath with minimal exertion. Dry nonproductive cough. He denies any chest pain palpitations, dizziness or lightheadedness. His chest x-ray reveals no acute pulmonary process. Maintain O2 saturations in the 90s on 2 L/m per nasal cannula. Afebrile. No leukocytosis. His influenza screen is negative. Current creatinine 3.84. He had a troponin of 0.106. ProBNP greater than 35, 000. He is hemodynamically stable. He is to receive dialysis today. The patient is seen again today 09/17/2016 in follow-up. He is more awake and alert today as compared to yesterday. He denies any worsening shortness of breath at this time. He has a dry nonproductive cough. No chills or night sweats. No chest pain or palpitations. He has been maintaining good O2 saturations in the upper 90s on 2 L/m per nasal cannula. He is afebrile. He has been maintained on Lasix 60 mg IV every 12 hours. He is also on bronchodilators, IV Solu-Medrol and antibiotics in the form of ceftriaxone. The patient is seen again today 09/18/2016 in follow-up on the selective care unit. He is awake and alert in no acute distress. He is getting stronger daily. He denies any shortness of breath, cough or congestion. He is maintaining good O2 saturations in the upper 90s to 100% on room air. He is currently receiving hemodialysis. His only complaint at this time is of continued weakness. Objective - Vital Signs Vital signs: Vital Signs Temp 97.4 F L 09/18/16 08:00 Pulse 86 09/18/16 12:07 Resp 16 09/18/16 08:00 BP 94/55 09/18/16 12:00 Pulse Ox 98 09/18/16 12:00 Intake & Output 09/17/16 09/18/16 09/18/16 18:59 06:59 18:59 Intake Total 400 436 Output Total 100 1 Balance 300 -1 436 Weight 50.5 kg Intake: Oral 400 436 Output: Urine 100 Stool 1 Other: Voiding Method Indwelling Catheter Indwelling Catheter - Exam GENERAL EXAM: Cachectic. Weak. Alert, comfortable in no apparent distress. HEAD: Normocephalic. EYES: Normal reaction of pupils, equal size. NOSE: Clear with pink turbinates. THROAT: No erythema or exudates. NECK: No masses, no JVD. CHEST: No chest wall deformity. LUNGS: Equal air entry with no crackles, wheeze, rhonchi or dullness. Diminished. CVS: S1 and S2 normal with no audible mumurs, regular rhythm. ABDOMEN: No hepatosplenomegaly, normal bowel sounds, no guarding or rigidity. SKIN: Pressure ulcers. Extremities: There is 1-2+ lower extremity peripheral edema. No clubbing, no cyanosis. Peripheral pulses are intact. - Labs CBC & Chem 7: 09/18/16 05:45 09/18/16 05:45 Labs: Abnormal Lab Results - Last 24 Hours (Table) 09/17/16 09/17/16 09/18/16 Range/Units 16:21 20:29 05:37 RBC (4.30-5.90) m/uL Hgb (13.0-17.5) gm/dL Hct (39.0-53.0) % RDW (11.5-15.5) % Sodium (137-145) mmol/L Carbon Dioxide (22-30) mmol/L BUN (9-20) mg/dL Creatinine (0.66-1.25) mg/dL Glucose (74-99) mg/dL POC Glucose (mg/dL) 126 H 112 H 187 H (75-99) mg/dL Calcium (8.4-10.2) mg/dL ALT (21-72) U/L Alkaline Phosphatase (38-126) U/L Total Protein (6.3-8.2) g/dL Albumin (3.5-5.0) g/dL 09/18/16 09/18/16 09/18/16 Range/Units 05:45 05:45 11:48 RBC 3.75 L (4.30-5.90) m/uL Hgb 10.6 L (13.0-17.5) gm/dL Hct 33.9 L (39.0-53.0) % RDW 16.6 H (11.5-15.5) % Sodium 134 L (137-145) mmol/L Carbon Dioxide 21 L (22-30) mmol/L BUN 68 H (9-20) mg/dL Creatinine 3.70 H (0.66-1.25) mg/dL Glucose 179 H (74-99) mg/dL POC Glucose (mg/dL) 357 H (75-99) mg/dL Calcium 8.0 L (8.4-10.2) mg/dL ALT 80 H (21-72) U/L Alkaline Phosphatase 149 H (38-126) U/L Total Protein 4.9 L (6.3-8.2) g/dL Albumin 2.4 L (3.5-5.0) g/dL Assessment and Plan Plan: Impression: #1 Dyspnea, multifactorial in a patient found to have evidence of fluid volume overload, suspect COPD exacerbation, suspect acute exacerbation of chronic systolic congestive heart failure. No clear evidence of pneumonia. Influenza screen negative. 09/17/2016. The patient is more awake and alert today as compared to yesterday. He has more energy. He is less short of breath. No chest pain. 09/18/2016. The patient continues to progress well. He denies any worsening shortness of breath cough or congestion. He is maintaining O2 saturations in the high 90s to 100% on room air. #2 Acute exacerbation of chronic systolic congestive heart failure in a patient with severe ischemic cardiomyopathy and estimated ejection fraction less than 20 %. #3 Acute exacerbation of chronic obstructive pulmonary disease. #4 End-stage renal disease, receiving hemodialysis Thursday. #5 Severe ischemic cardiomyopathy, status post AICD placement. #6 Chronic atrial fibrillation, anticoagulated with apixaban. #7 Hypertension. #8 Hyperlipidemia. #9 Diabetes mellitus. #10 Benign prostatic hypertrophy. #11 Recent admission for pseudomonas aeruginosa pneumonia, complicated by influenza. #12 Poor overall functional performance secondary to the above-mentioned multiple comorbidities. Plan: The patient was seen and evaluated by Dr. Hernandez. The patient continues to improve daily. We'll continue with his current medications. He remains anticoagulated on Eliquis. We will put in a consult for physical therapy and increase his activity as tolerated. We'll continue to follow.
[2016-09-18 15:51] LABS: Glucose,Whole Blood 129 mg/dL (75-99)
[2016-09-18 16:51] LABS: Glucose,Whole Blood 124 mg/dL (75-99)
[2016-09-18] MEDS: METOPROLOL SUCCINATE (ER) 50 MG TAB.ER.24H PO SCH (18:10)
[2016-09-18 20:35] LABS: Glucose,Whole Blood 177 mg/dL (75-99)
[2016-09-18] MEDS: ATORVASTATIN 10 MG TAB PO SCH (21:01)
[2016-09-18] MEDS: MULTIVITAMINS, THERA 1 EACH TAB PO SCH (21:04)
[2016-09-19 06:12] LABS: Glucose,Whole Blood 331 mg/dL (75-99)
[2016-09-19 06:37] LABS: Calcium 7.7 mg/dL (8.4-10.2); Potassium 4.4 mmol/L (3.5-5.1); Total Bilirubin 1.1 mg/dL (0.2-1.3); Total Protein 4.7 g/dL (6.3-8.2)
[2016-09-19] MEDS: INSULIN DETEMIR 100 UNIT/ML 10 ML VIAL SQ SCH ×2 (06:39→09:28)
[2016-09-19] MEDS: INSULIN LISPRO (humaLOG) 300 UNIT/3 ML VIAL SQ SCH ×4 (06:40→21:39)
[2016-09-19] MEDS: MIDODRINE 5 MG TAB PO SCH ×3 (06:40→17:04)
[2016-09-19] MEDS: methylPREDNISolone SOD SUCCI 125 MG/2 ML VIAL IV SCH (06:40)
[2016-09-19] MEDS: hydrALAZINE HCL 25 MG TAB PO SCH ×3 (06:44→21:39)
[2016-09-19] MEDS ORDERED: CHLORPHEN-HYDROcod 8-10mg/5ml 5 ML ORAL.SYRG PO PRN (08:04)
--- NOTE | 2016-09-19 08:06 | P.PN ---
Subjective Principal diagnosis: Respiratory distress with cardiorenal syndrome. This is a 81-year-old white male essentially readmitted for respiratory distress and renal failure. He has had dialysis for the past several days and has done quite well. Unfortunately, with his ischemic cardiopathy and history of atrial fibrillation he has multiple comorbidities which make it difficult for him to recover easily. He states much more energy but still difficulty standing. I am hopeful that we can get him back to rehabilitation in the next several days. Pulmonology has started physical therapy. He seems more energetic today. Objective - Vital Signs Vital signs: Vital Signs Temp 97.2 F L 09/19/16 04:00 Pulse 64 09/19/16 04:00 Resp 18 09/19/16 04:00 BP 92/53 09/19/16 06:44 Pulse Ox 96 09/19/16 04:00 Intake & Output 09/18/16 09/19/16 09/19/16 18:59 06:59 18:59 Intake Total 636 300 Output Total 250 Balance 386 300 Weight 49.9 kg Intake: Oral 636 300 Output: Urine 250 Other: Voiding Method Indwelling Catheter Indwelling Catheter # Voids 0 - Constitutional General appearance: Present: thin - EENT Eyes: Absent: abnormal pupil - Respiratory Respiratory: bilateral: CTA - Cardiovascular Rhythm: regular Heart sounds: normal: S1, S2 - Gastrointestinal General gastrointestinal: Absent: tenderness - Neurologic Neurologic: Present: CNII-XII intact - Musculoskeletal Musculoskeletal: Present: generalized weakness - Labs CBC & Chem 7: 09/18/16 05:45 09/19/16 05:20 Labs: Abnormal Lab Results - Last 24 Hours (Table) 09/18/16 09/18/16 09/18/16 Range/Units 11:48 15:48 16:39 Sodium (137-145) mmol/L BUN (9-20) mg/dL Creatinine (0.66-1.25) mg/dL Glucose (74-99) mg/dL POC Glucose (mg/dL) 357 H 129 H 124 H (75-99) mg/dL Calcium (8.4-10.2) mg/dL ALT (21-72) U/L Alkaline Phosphatase (38-126) U/L Total Protein (6.3-8.2) g/dL Albumin (3.5-5.0) g/dL 09/18/16 09/19/1609/19/17 Range/Units 20:26 05:20 06:09 Sodium 135 L (137-145) mmol/L BUN 48 H (9-20) mg/dL Creatinine 2.70 H (0.66-1.25) mg/dL Glucose 307 H (74-99) mg/dL POC Glucose (mg/dL) 177 H 331 H (75-99) mg/dL Calcium 7.7 L (8.4-10.2) mg/dL ALT 90 H (21-72) U/L Alkaline Phosphatase 163 H (38-126) U/L Total Protein 4.7 L (6.3-8.2) g/dL Albumin 2.3 L (3.5-5.0) g/dL Assessment and Plan (1) Acute exacerbation of chronic obstructive pulmonary disease Status: Acute (2) Chronic renal failure Status: Acute (3) AICD (automatic cardioverter/defibrillator) present Status: Acute (4) Afib Status: Acute (5) Nonischemic cardiomyopathy Status: Acute Plan: Anticipate dialysis tomorrow. Check CMP in a.m. Dr. Obrien's group will be covering for the weekend. Anticipate transfer to ECF/rehab in the next several days. Overall, his prognosis is guarded secondary to his multiple comorbidities but he is significantly clinically improved for this readmission. Time with Patient: Less than 30
--- NOTE | 2016-09-19 08:09 | P.PN ---
Subjective Patient is seen in follow-up for acute kidney injury. Patient presented to the hospital with dyspnea. He does have systolic CHF with ejection fraction of 20% . He is currently dialysis dependent and is maintained on a Thursday schedule. Currently sitting up in chair. Dyspnea is improved. No vomiting or diarrhea. Appetite is gradually improving. Vital signs are stable. General: The patient appeared well nourished and normally developed. HEENT: Head exam is unremarkable. Neck is without jugular venous distension. LUNGS: Breath sounds decreased. HEART: Rate and Rhythm are regular. First and second heart sounds normal. No murmurs, rubs or gallops. ABDOMEN: Abdominal exam reveals normal bowel sounds. Non-tender and non- distended. No evidence of peritonitis. EXTREMITITES: Trace edema. Objective - Vital Signs Vital signs: Vital Signs Temp 97.2 F L 09/19/16 04:00 Pulse 64 09/19/16 04:00 Resp 18 09/19/16 04:00 BP 92/53 09/19/16 06:44 Pulse Ox 96 09/19/16 04:00 Intake & Output 09/18/16 09/19/16 09/19/16 18:59 06:59 18:59 Intake Total 636 300 Output Total 250 Balance 386 300 Weight 49.9 kg Intake: Oral 636 300 Output: Urine 250 Other: Voiding Method Indwelling Catheter Indwelling Catheter # Voids 0 - Labs CBC & Chem 7: 09/18/16 05:45 09/19/16 05:20 Labs: Abnormal Lab Results - Last 24 Hours (Table) 09/18/16 09/18/16 09/18/16 Range/Units 11:48 15:48 16:39 Sodium (137-145) mmol/L BUN (9-20) mg/dL Creatinine (0.66-1.25) mg/dL Glucose (74-99) mg/dL POC Glucose (mg/dL) 357 H 129 H 124 H (75-99) mg/dL Calcium (8.4-10.2) mg/dL ALT (21-72) U/L Alkaline Phosphatase (38-126) U/L Total Protein (6.3-8.2) g/dL Albumin (3.5-5.0) g/dL 09/18/16 09/19/16 09/19/16 Range/Units 20:26 05:20 06:09 Sodium 135 L (137-145) mmol/L BUN 48 H (9-20) mg/dL Creatinine 2.70 H (0.66-1.25) mg/dL Glucose 307 H (74-99) mg/dL POC Glucose (mg/dL) 177 H 331 H (75-99) mg/dL Calcium 7.7 L (8.4-10.2) mg/dL ALT 90 H (21-72) U/L Alkaline Phosphatase 163 H (38-126) U/L Total Protein 4.7 L (6.3-8.2) g/dL Albumin 2.3 L (3.5-5.0) g/dL Assessment and Plan Plan: Assessment: #1. Acute kidney injury currently hemodialysis dependent and maintained on a Thursday schedule. #2. Systolic CHF with ejection fraction of 20%. #3. Chronic hypotension related to underlying cardiac status. #4. Volume overload. Improving. Plan: Hemodialysis tomorrow with goal 2-3 L ultrafiltration as blood pressure tolerates. Maintain Midodrine. Maintain Lasix 60 mg IV twice daily. Encouraged oral intake, particularly protein.
[2016-09-19] MEDS: APIXABAN 2.5 MG TABLET PO SCH ×2 (09:25→17:06)
[2016-09-19] MEDS: MEGESTROL 400 MG/10 ML CUP PO SCH (09:25)
[2016-09-19] MEDS: DONEPEZIL 10 MG TAB PO SCH (09:25)
[2016-09-19] MEDS: AMIODARONE 200 MG TAB PO SCH ×2 (09:25→17:05)
[2016-09-19] MEDS: NYSTATIN 100,000 UNIT/ML SUSP 500,000 UNIT/5 ML CUP PO SCH ×4 (09:26→21:38)
[2016-09-19] MEDS: DORZOLAMIDE-TIMOLOL 2-0.5% DROPS 10 ML BTL BOTH EYES SCH ×2 (09:26→17:06)
[2016-09-19] MEDS: ISOSORBIDE DINITRATE 10 MG TAB PO SCH ×3 (09:26→21:36)
[2016-09-19] MEDS: DOCUSATE 100 MG CAP PO SCH ×2 (09:26→17:05)
[2016-09-19] MEDS: PANTOPRAZOLE 40 MG TABLET PO SCH (09:26)
[2016-09-19] MEDS: FUROSEMIDE 10 MG/ML 10 ML VIAL IV SCH ×2 (09:28→21:37)
[2016-09-19 11:31] LABS: Glucose,Whole Blood 314 mg/dL (75-99)
[2016-09-19 11:40] VITALS: BMI 18.8
[2016-09-19] MEDS: methylPREDNISolone SOD SUCCI 40 MG/ML 1 ML VIAL IV SCH ×3 (12:12→23:10)
[2016-09-19 12:20] LABS: Glucose,Whole Blood 374 mg/dL (75-99)
[2016-09-19] MEDS: IPRATROPIUM-ALBUTEROL 3 ML NEB INHALATION SCH ×4 (12:32→19:55)
[2016-09-19 13:21] VITALS: RESP 18
[2016-09-19 14:58] LABS: Glucose,Whole Blood 378 mg/dL (75-99)
[2016-09-19 15:01] LABS: Glucose,Whole Blood 323 mg/dL (75-99)
--- NOTE | 2016-09-19 15:34 | P.PN ---
Subjective This is a very pleasant 81-year-old gentleman who follows with Dr. Whitehead as his primary care physician. 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 He also has a history of chronic obstructive pulmonary disease. He has had issues with previous pleural effusions and had undergone thoracentesis in the past. He recently had a pseudomonas aeruginosa pulmonary infection one month ago and was discharged 09/10/2016 to an [facility]. According to his he was having a good day yesterday. He was up ambulating with the staff to set up in the chair for many hours. After approximate 5:00 p.m. he started having issues with cough and congestion. He did have issues with hypoglycemia as well. He did have low O2 saturations according to the staff and increased shortness of breath and was transferred here to [facility] approximate 9:00 this morning. The patient himself is somewhat of a poor historian. His complaints are vague. He does have some shortness of breath with minimal exertion. Dry nonproductive cough. He denies any chest pain palpitations, dizziness or lightheadedness. His chest x-ray reveals no acute pulmonary process. Maintain O2 saturations in the 90s on 2 L/m per nasal cannula. Afebrile. No leukocytosis. His influenza screen is negative. Current creatinine 3.84. He had a troponin of 0.106. ProBNP greater than 35, 000. He is hemodynamically stable. He is to receive dialysis today. The patient is seen again today 09/17/2016 in follow-up. He is more awake and alert today as compared to yesterday. He denies any worsening shortness of breath at this time. He has a dry nonproductive cough. No chills or night sweats. No chest pain or palpitations. He has been maintaining good O2 saturations in the upper 90s on 2 L/m per nasal cannula. He is afebrile. He has been maintained on Lasix 60 mg IV every 12 hours. He is also on bronchodilators, IV Solu-Medrol and antibiotics in the form of ceftriaxone. The patient is seen again today 09/18/2016 in follow-up on the selective care unit. He is awake and alert in no acute distress. He is getting stronger daily. He denies any shortness of breath, cough or congestion. He is maintaining good O2 saturations in the upper 90s to 100% on room air. He is currently receiving hemodialysis. His only complaint at this time is of continued weakness. Seen again today 09/19/2016 in follow-up. He is awake and alert in no acute distress. He is sitting up in the chair at the bedside. He denies any worsening shortness of breath, cough or congestion. He is breathing easier today as compared to yesterday. PT has been working with the patient he's been up ambulating with assistance. He is maintaining good O2 saturations in the high 90s to 100% on room air. He's been hemodynamically stable. Objective - Vital Signs Vital signs: Vital Signs Temp 97.8 F 09/19/16 08:00 Pulse 72 09/19/16 12:43 Resp 18 09/19/16 12:00 BP 93/52 09/19/16 12:00 Pulse Ox 98 09/19/16 12:00 Intake & Output 09/18/16 09/19/16 09/19/16 18:59 06:59 18:59 Intake Total 636 300 340 Output Total 250 Balance 386 300 340 Weight 49.9 kg 49.9 kg Intake: Oral 636 300 340 Output: Urine 250 Other: Voiding Method Indwelling Catheter Indwelling Catheter Indwelling Catheter # Voids 0 # Bowel Movements 1 - Exam GENERAL EXAM: Cachectic. Weak. Alert, comfortable in no apparent distress. HEAD: Normocephalic. EYES: Normal reaction of pupils, equal size. NOSE: Clear with pink turbinates. THROAT: No erythema or exudates. NECK: No masses, no JVD. CHEST: No chest wall deformity. LUNGS: Equal air entry with no crackles, wheeze, rhonchi or dullness. Diminished. CVS: S1 and S2 normal with no audible mumurs, regular rhythm. ABDOMEN: No hepatosplenomegaly, normal bowel sounds, no guarding or rigidity. SKIN: Pressure ulcers. Extremities: There is 1-2+ lower extremity peripheral edema. No clubbing, no cyanosis. Peripheral pulses are intact. - Labs CBC & Chem 7: 09/18/16 05:45 09/19/16 05:20 Labs: Abnormal Lab Results - Last 24 Hours (Table) 09/18/16 09/18/16 09/18/16 Range/Units 15:48 16:39 20:26 Sodium (137-145) mmol/L BUN (9-20) mg/dL Creatinine (0.66-1.25) mg/dL Glucose (74-99) mg/dL POC Glucose (mg/dL) 129 H 124 H 177 H (75-99) mg/dL Calcium (8.4-10.2) mg/dL ALT (21-72) U/L Alkaline Phosphatase (38-126) U/L Total Protein (6.3-8.2) g/dL Albumin (3.5-5.0) g/dL 09/19/16 09/19/16 09/19/16 Range/Units 05:20 06:09 11:28 Sodium 135 L (137-145) mmol/L BUN 48 H (9-20) mg/dL Creatinine 2.70 H (0.66-1.25) mg/dL Glucose 307 H (74-99) mg/dL POC Glucose (mg/dL) 331 H 314 H (75-99) mg/dL Calcium 7.7 L (8.4-10.2) mg/dL ALT 90 H (21-72) U/L Alkaline Phosphatase 163 H (38-126) U/L Total Protein 4.7 L (6.3-8.2) g/dL Albumin 2.3 L (3.5-5.0) g/dL 09/19/16 09/19/16 09/19/16 Range/Units 12:08 14:56 14:58 Sodium (137-145) mmol/L BUN (9-20) mg/dL Creatinine (0.66-1.25) mg/dL Glucose (74-99) mg/dL POC Glucose (mg/dL) 374 H 378 H 323 H (75-99) mg/dL Calcium (8.4-10.2) mg/dL ALT (21-72) U/L Alkaline Phosphatase (38-126) U/L Total Protein (6.3-8.2) g/dL Albumin (3.5-5.0) g/dL Assessment and Plan Plan: Impression: #1 Dyspnea, multifactorial in a patient found to have evidence of fluid volume overload, suspect COPD exacerbation, suspect acute exacerbation of chronic systolic congestive heart failure. No clear evidence of pneumonia. Influenza screen negative. 09/17/2016. The patient is more awake and alert today as compared to yesterday. He has more energy. He is less short of breath. No chest pain. 09/18/2016. The patient continues to progress well. He denies any worsening shortness of breath cough or congestion. He is maintaining O2 saturations in the high 90s to 100% on room air. 09/19/2016. The patient continues to improve daily. He has no pulmonary complaints. No oxygen requirements. #2 Acute exacerbation of chronic systolic congestive heart failure in a patient with severe ischemic cardiomyopathy and estimated ejection fraction less than 20 %. #3 Acute exacerbation of chronic obstructive pulmonary disease. #4 End-stage renal disease, receiving hemodialysis Thursday. #5 Severe ischemic cardiomyopathy, status post AICD placement. #6 Chronic atrial fibrillation, anticoagulated with apixaban. #7 Hypertension. #8 Hyperlipidemia. #9 Diabetes mellitus. #10 Benign prostatic hypertrophy. #11 Recent admission for pseudomonas aeruginosa pneumonia, complicated by influenza. #12 Poor overall functional performance secondary to the above-mentioned multiple comorbidities. Plan: The patient was seen and evaluated by Dr. Hernandez. The patient continues to improve daily. We'll continue with his current medications. We will continue with IV Solu-Medrol and antibiotics in the form of ceftriaxone. Continue bronchodilators. He remains anticoagulated on Eliquis. We will continue to increase his activity as tolerated. We'll continue to follow.
[2016-09-19 16:29] LABS: Glucose,Whole Blood 341 mg/dL (75-99)
[2016-09-19] MEDS: MULTIVITAMINS, THERA 1 EACH TAB PO SCH (17:05)
[2016-09-19] MEDS: METOPROLOL SUCCINATE (ER) 50 MG TAB.ER.24H PO SCH (17:05)
[2016-09-19 20:43] LABS: Glucose,Whole Blood 294 mg/dL (75-99)
[2016-09-19] MEDS: ATORVASTATIN 10 MG TAB PO SCH (21:36)
[2016-09-20 06:26] LABS: Glucose,Whole Blood 233 mg/dL (75-99)
[2016-09-20] MEDS: hydrALAZINE HCL 25 MG TAB PO SCH ×2 (06:41→15:35)
[2016-09-20] MEDS: MIDODRINE 5 MG TAB PO SCH ×3 (06:41→17:16)
[2016-09-20] MEDS: methylPREDNISolone SOD SUCCI 40 MG/ML 1 ML VIAL IV SCH ×3 (06:42→17:17)
[2016-09-20] MEDS: INSULIN LISPRO (humaLOG) 300 UNIT/3 ML VIAL SQ SCH ×3 (06:42→17:17)
--- NOTE | 2016-09-20 08:09 | P.PN ---
Subjective Patient is seen in follow-up for acute kidney injury. Patient presented to the hospital with dyspnea. He does have systolic CHF with ejection fraction of 20% . He is currently dialysis dependent and is maintained on a Thursday schedule. Currently sitting up in chair. Dyspnea is improved. No vomiting or diarrhea. Appetite is gradually improving. Vital signs are stable. General: The patient appeared well nourished and normally developed. HEENT: Head exam is unremarkable. Neck is without jugular venous distension. LUNGS: Breath sounds decreased. HEART: Rate and Rhythm are regular. First and second heart sounds normal. No murmurs, rubs or gallops. ABDOMEN: Abdominal exam reveals normal bowel sounds. Non-tender and non- distended. No evidence of peritonitis. EXTREMITITES: Trace edema. Objective - Vital Signs Vital signs: Vital Signs Temp 97.8 F 09/20/16 04:00 Pulse 61 09/20/16 04:00 Resp 18 09/20/16 04:00 BP 105/58 09/20/16 04:00 Pulse Ox 98 09/20/16 04:00 Intake & Output 09/19/16 09/20/16 09/20/16 18:59 06:59 18:59 Intake Total 760 Output Total 280 Balance 760 -280 Weight 49.9 kg 48.7 kg Intake: Oral 760 Output: Urine 280 Other: Voiding Method Indwelling Catheter Indwelling Catheter # Bowel Movements 1 1 - Labs CBC & Chem 7: 09/18/16 05:45 09/19/16 05:20 Labs: Abnormal Lab Results - Last 24 Hours (Table) 09/19/16 09/19/16 09/19/16 Range/Units 11:28 12:08 14:56 POC Glucose (mg/dL) 314 H 374 H 378 H (75-99) mg/dL 09/19/16 09/19/16 09/19/16 Range/Units 14:58 16:28 20:39 POC Glucose (mg/dL) 323 H 341 H 294 H (75-99) mg/dL 09/20/16 Range/Units 06:12 POC Glucose (mg/dL) 233 H (75-99) mg/dL Assessment and Plan Plan: Assessment: #1. Acute kidney injury currently hemodialysis dependent and maintained on a Thursday schedule a permacath. Urine output still marginal. 280 mL overnight. #2. Systolic CHF with ejection fraction of 20%. #3. Chronic hypotension related to underlying cardiac status. #4. Volume overload. Improving. Plan: Hemodialysis today with goal 2-3 L ultrafiltration as blood pressure tolerates. Maintain Midodrine. Maintain Lasix 60 mg IV twice daily. Encouraged oral intake, particularly protein. Continue physical therapy.
[2016-09-20] MEDS: DIGOXIN 125 MCG TAB PO SCH (08:11)
[2016-09-20] MEDS: AMIODARONE 200 MG TAB PO SCH ×2 (08:12→17:16)
[2016-09-20] MEDS: APIXABAN 2.5 MG TABLET PO SCH ×2 (08:12→17:16)
[2016-09-20] MEDS: DONEPEZIL 10 MG TAB PO SCH (08:13)
[2016-09-20] MEDS: MEGESTROL 400 MG/10 ML CUP PO SCH (08:13)
[2016-09-20] MEDS: PANTOPRAZOLE 40 MG TABLET PO SCH (08:13)
[2016-09-20] MEDS: FUROSEMIDE 10 MG/ML 10 ML VIAL IV SCH (08:14)
[2016-09-20] MEDS: DOCUSATE 100 MG CAP PO SCH ×2 (08:14→17:17)
[2016-09-20] MEDS: DORZOLAMIDE-TIMOLOL 2-0.5% DROPS 10 ML BTL BOTH EYES SCH ×2 (08:14→17:25)
[2016-09-20] MEDS: ISOSORBIDE DINITRATE 10 MG TAB PO SCH ×2 (08:15→17:16)
[2016-09-20] MEDS: NYSTATIN 100,000 UNIT/ML SUSP 500,000 UNIT/5 ML CUP PO SCH ×3 (08:15→17:28)
[2016-09-20] MEDS: INSULIN DETEMIR 100 UNIT/ML 10 ML VIAL SQ SCH (08:26)
[2016-09-20 11:37] LABS: Glucose,Whole Blood 314 mg/dL (75-99)
[2016-09-20] MEDS: IPRATROPIUM-ALBUTEROL 3 ML NEB INHALATION SCH ×4 (11:46→19:55)
[2016-09-20 16:39] LABS: Glucose,Whole Blood 382 mg/dL (75-99)
[2016-09-20] MEDS: MULTIVITAMINS, THERA 1 EACH TAB PO SCH (17:16)
[2016-09-20] MEDS: METOPROLOL SUCCINATE (ER) 50 MG TAB.ER.24H PO SCH (17:17)
--- NOTE | 2016-09-20 17:43 | PN ---
I am covering for Dr. Farah. This 81-year-old woman was admitted with shortness of breath, which is multifactorial including COPD acute exacerbation as well as congestive heart failure acute exacerbation being closely monitored. The patient still has shortness of breath. The patient also has tiredness and weakness. ECF rehab is being planned. Dr. Hernandez is following the patient closely from a pulmonary standpoint of view. The patient also is receiving hemodialysis. Hemoglobin is 10.6 and sodium is 135 at this time. Troponin 0.1. PAST MEDICAL HISTORY: Reviewed. REVIEW OF SYSTEMS: CARDIOVASCULAR: No angina. RESPIRATORY: As mentioned earlier. GI: As mentioned earlier. : No dysuria. NERVOUS SYSTEM: No numbness or weakness. Current medications are reviewed and include: 1. Tylenol 650 q.4 p.r.n. 2. DuoNeb q.i.d. and p.r.n. 3. Xanax 0.25 t.i.d. 4. Cordarone 200 mg p.o. b.i.d. 5. Eliquis 2.5 mg. 6. Lipitor 10 mg q.h.s. 7. Dulcolax 10 mg p.o. p.r.n. 8. Rocephin 1 gram daily. 9. Tussionex 5 mL b.i.d. 10. Lanoxin 125 mcg p.o. 11. Colace. 12. Aricept. 13. Cosopt. 14. Lasix 60 mg b.i.d. 15. Levemir 22 units daily. 16. Isordil. 17. Solu-Medrol 40 IV q.6. 18. Toprol-XL 50 mg p.o. daily. 19. ProAmatine. 20. Multivitamins. 21. Protonix. PHYSICAL EXAMINATION: The patient is alert and oriented x2. Pulse 90, blood pressure 130/66, respiratory rate 18, temperature 97.8, pulse ox 99% on room air. HEENT: Conjunctivae normal. NECK: No jugular venous distention. CARDIOVASCULAR: S1 and S2, muffled. RESPIRATORY: Breath sounds diminished at the bases. A few scattered rhonchi and crackles especially on the left side. ABDOMEN: Soft, nontender. No mass palpable. LEGS: No edema, no swelling. NERVOUS SYSTEM: Higher function as mentioned. Moves all four limbs. No focal motor deficits. LYMPHATIC: No lymphadenopathy in the neck, axillae or groin. SKIN: No ulcer, rash or bleeding. LABS: WBC 10.2, hemoglobin is 10.2 creatinine is 2.6. ASSESSMENT: 1. Shortness of breath multifactorial, chronic obstructive pulmonary disease acute exacerbation with acute purulent tracheobronchitis as well as congestive heart failure acute exacerbation with acute on chronic systolic dysfunction, ejection fraction less than 20%. 2. Gait dysfunction. 3. End-stage renal disease, stage IV, on hemodialysis, Thursday, , Thursday. 4. Ischemic cardiomyopathy, status post AICD. 5. Chronic atrial fibrillation. 6. On apixaban. 7. Hypertension. 8. Hyperlipidemia. 9. Diabetes mellitus type 2. 10. Benign prostatic hypertrophy. 11. History of recent pseudomonas pneumonia. 12. Severe protein calorie malnutrition with a BMI of 18.4. 13. FULL CODE. 14. Gait dysfunction. 15. Elevated ALT 16. Troponin 0.106 of undetermined etiology. RECOMMENDATIONS AND DISCUSSION: In this 81-year-old gentleman who presented with multiple complex medical issues, we will monitor the patient closely. Continue the current medications. Continue symptomatic treatment. I recommend continue the current medications. Continue multivitamins and continue the steroids. May be tapered starting from yesterday. Continue with Eliquis. Repeat labs will be ordered. Guarded prognosis. Further recommendations to follow. Discussed with the patient and daughter at bedside who understands. Further recommendations to follow. Will also repeat AST and ALT also. The patient has slightly elevated ALT as well.
[2016-09-20 20:08] LABS: Glucose,Whole Blood 396 mg/dL (75-99)
[2016-09-21] MEDS: hydrALAZINE HCL 25 MG TAB PO SCH ×4 (00:50→23:06)
[2016-09-21] MEDS: FUROSEMIDE 10 MG/ML 10 ML VIAL IV SCH ×3 (00:50→23:07)
[2016-09-21] MEDS: NYSTATIN 100,000 UNIT/ML SUSP 500,000 UNIT/5 ML CUP PO SCH ×5 (00:51→23:08)
[2016-09-21 00:59] LABS: Glucose,Whole Blood 196 mg/dL (75-99)
[2016-09-21] MEDS: methylPREDNISolone SOD SUCCI 40 MG/ML 1 ML VIAL IV SCH ×5 (00:59→23:07)
[2016-09-21] MEDS: ISOSORBIDE DINITRATE 10 MG TAB PO SCH ×4 (00:59→23:06)
[2016-09-21] MEDS: ATORVASTATIN 10 MG TAB PO SCH ×2 (00:59→23:06)
[2016-09-21] MEDS: INSULIN LISPRO (humaLOG) 300 UNIT/3 ML VIAL SQ SCH ×5 (00:59→23:08)
[2016-09-21 06:19] LABS: Anisocytosis Slight; Basophils % (A) 0 %; CH 28.7; CHCM 32.2; Eosinophils % (A) 0 %; HCT 32.5 % (39.0-53.0); HGB 10.7 gm/dL (13.0-17.5); Luc # (Auto) 0.11; Luc % (Auto) 1; Lymphocytes # (A) 0.7 k/uL (1.0-4.8); Lymphocytes % (A) 6 %; MCH 29.5 pg (25.0-35.0); MCV 89.5 fL (80.0-100.0); Mean Platelet Volume 7.8; Monocytes # (A) 0.4 k/uL (0-1.0); Monocytes % (A) 3 %; Neutrophils # (A) 9.6 k/uL (1.3-7.7); Neutrophils % (A) 89 %; RBC 3.63 m/uL (4.30-5.90); RDW 16.1 % (11.5-15.5); WBC 10.8 k/uL (3.8-10.6); WBC (Perox) 11.35
[2016-09-21] MEDS: MIDODRINE 5 MG TAB PO SCH ×3 (06:30→16:57)
[2016-09-21 06:36] LABS: Calcium 7.8 mg/dL (8.4-10.2); Potassium 4.4 mmol/L (3.5-5.1); Total Bilirubin 0.9 mg/dL (0.2-1.3); Total Protein 4.6 g/dL (6.3-8.2)
[2016-09-21 06:54] LABS: Glucose,Whole Blood 136 mg/dL (75-99)
[2016-09-21] MEDS: IPRATROPIUM-ALBUTEROL 3 ML NEB INHALATION SCH ×4 (08:27→20:13)
[2016-09-21] MEDS: INSULIN DETEMIR 100 UNIT/ML 10 ML VIAL SQ SCH (08:50)
[2016-09-21] MEDS: APIXABAN 2.5 MG TABLET PO SCH ×2 (08:51→16:58)
[2016-09-21] MEDS: MEGESTROL 400 MG/10 ML CUP PO SCH (08:51)
[2016-09-21] MEDS: AMIODARONE 200 MG TAB PO SCH ×2 (08:51→16:58)
[2016-09-21] MEDS: DONEPEZIL 10 MG TAB PO SCH (08:52)
[2016-09-21] MEDS: DOCUSATE 100 MG CAP PO SCH ×2 (08:52→16:58)
[2016-09-21] MEDS: PANTOPRAZOLE 40 MG TABLET PO SCH (08:52)
[2016-09-21] MEDS: DORZOLAMIDE-TIMOLOL 2-0.5% DROPS 10 ML BTL BOTH EYES SCH ×2 (08:53→16:58)
[2016-09-21 11:33] LABS: Glucose,Whole Blood 323 mg/dL (75-99)
[2016-09-21 16:30] LABS: Glucose,Whole Blood 331 mg/dL (75-99)
[2016-09-21] MEDS: METOPROLOL SUCCINATE (ER) 50 MG TAB.ER.24H PO SCH (16:30)
[2016-09-21] MEDS: MULTIVITAMINS, THERA 1 EACH TAB PO SCH (16:58)
[2016-09-21 20:53] LABS: Glucose,Whole Blood 326 mg/dL (75-99)
[2016-09-22 06:35] LABS: Glucose,Whole Blood 393 mg/dL (75-99)
[2016-09-22] MEDS: hydrALAZINE HCL 25 MG TAB PO SCH (06:42)
[2016-09-22] MEDS: DIGOXIN 125 MCG TAB PO SCH (06:43)
[2016-09-22] MEDS: methylPREDNISolone SOD SUCCI 40 MG/ML 1 ML VIAL IV SCH (06:43)
[2016-09-22] MEDS: INSULIN LISPRO (humaLOG) 300 UNIT/3 ML VIAL SQ SCH (06:43)
[2016-09-22 06:59] LABS: Potassium 5.3 mmol/L (3.5-5.1); Total Protein 4.7 g/dL (6.3-8.2)
[2016-09-22 07:00] LABS: Anisocytosis Slight; Basophils # (A) 0.1 k/uL (0-0.2); Basophils % (A) 0 %; CH 28.7; CHCM 31.7; Eosinophils % (A) 0 %; HCT 36.5 % (39.0-53.0); HGB 11.5 gm/dL (13.0-17.5); Luc % (Auto) 1; Lymphocytes # (A) 0.6 k/uL (1.0-4.8); Lymphocytes % (A) 4 %; MCH 28.7 pg (25.0-35.0); MCHC 31.6 g/dL (31.0-37.0); Mean Platelet Volume 7.7; Monocytes # (A) 0.4 k/uL (0-1.0); Monocytes % (A) 2 %; Neutrophils # (A) 13.9 k/uL (1.3-7.7); Neutrophils % (A) 93 %; RBC 4.01 m/uL (4.30-5.90); RDW 16.4 % (11.5-15.5); WBC (Perox) 15.68
[2016-09-22] MEDS: APIXABAN 2.5 MG TABLET PO SCH (08:36)
[2016-09-22] MEDS: PANTOPRAZOLE 40 MG TABLET PO SCH (08:36)
[2016-09-22] MEDS: AMIODARONE 200 MG TAB PO SCH (08:37)
[2016-09-22] MEDS: MEGESTROL 400 MG/10 ML CUP PO SCH (08:37)
[2016-09-22] MEDS: ISOSORBIDE DINITRATE 10 MG TAB PO SCH (08:37)
[2016-09-22] MEDS: FUROSEMIDE 10 MG/ML 10 ML VIAL IV SCH (08:37)
[2016-09-22] MEDS: DOCUSATE 100 MG CAP PO SCH (08:37)
[2016-09-22] MEDS: INSULIN DETEMIR 100 UNIT/ML 10 ML VIAL SQ SCH (08:37)
[2016-09-22] MEDS: NYSTATIN 100,000 UNIT/ML SUSP 500,000 UNIT/5 ML CUP PO SCH (08:37)
[2016-09-22] MEDS: DORZOLAMIDE-TIMOLOL 2-0.5% DROPS 10 ML BTL BOTH EYES SCH (08:38)
--- NOTE | 2016-09-22 08:38 | P.PN ---
Subjective Patient is seen in follow-up for acute kidney injury. Patient presented to the hospital with dyspnea. He does have systolic CHF with ejection fraction of 20% . He is currently dialysis dependent and is maintained on a Thursday schedule. Currently sitting up in bed. Dyspnea is improved. No vomiting or diarrhea. Appetite is gradually improving. He is eager to be discharged. Vital signs are stable. General: The patient appeared well nourished and normally developed. HEENT: Head exam is unremarkable. Neck is without jugular venous distension. LUNGS: Breath sounds decreased. HEART: Rate and Rhythm are regular. First and second heart sounds normal. No murmurs, rubs or gallops. ABDOMEN: Abdominal exam reveals normal bowel sounds. Non-tender and non- distended. No evidence of peritonitis. EXTREMITITES: Trace edema. Objective - Vital Signs Vital signs: Vital Signs Temp 97.6 F 09/21/16 20:00 Pulse 60 09/22/16 04:00 Resp 18 09/22/16 04:00 BP 109/62 09/22/16 04:00 Pulse Ox 97 09/22/16 04:00 Intake & Output 09/21/16 09/22/16 09/22/16 18:59 06:59 18:59 Intake Total 1197 300 Output Total 300 Balance 897 300 Weight 55.5 kg Intake: Intake, IV Titration 100 Amount cefTRIAXone 1,000 mg In 100 Sodium Chloride 0.9% 50 ml @ 100 mls/hr IVPB Q24HR [facility] Rx#:[id number] Oral 1097 300 Output: Urine 300 Other: Voiding Method Indwelling Catheter Indwelling Catheter - Labs CBC & Chem 7: 09/22/16 05:45 09/22/16 05:45 Labs: Abnormal Lab Results - Last 24 Hours (Table) 09/21/16 09/21/16 09/21/16 Range/Units 11:32 16:28 20:51 WBC (3.8-10.6) k/uL RBC (4.30-5.90) m/uL Hgb (13.0-17.5) gm/dL Hct (39.0-53.0) % RDW (11.5-15.5) % Neutrophils # (1.3-7.7) k/uL Lymphocytes # (1.0-4.8) k/uL Sodium (137-145) mmol/L Potassium (3.5-5.1) mmol/L BUN (9-20) mg/dL Creatinine (0.66-1.25) mg/dL Glucose (74-99) mg/dL POC Glucose (mg/dL) 323 H 331 H 326 H (75-99) mg/dL Calcium (8.4-10.2) mg/dL ALT (21-72) U/L Alkaline Phosphatase (38-126) U/L Total Protein (6.3-8.2) g/dL Albumin (3.5-5.0) g/dL 09/22/16 09/22/16 09/22/16 Range/Units 05:45 05:45 06:04 WBC 15.0 H (3.8-10.6) k/uL RBC 4.01 L (4.30-5.90) m/uL Hgb 11.5 L (13.0-17.5) gm/dL Hct 36.5 L (39.0-53.0) % RDW 16.4 H (11.5-15.5) % Neutrophils # 13.9 H (1.3-7.7) k/uL Lymphocytes # 0.6 L (1.0-4.8) k/uL Sodium 133 L (137-145) mmol/L Potassium 5.3 H (3.5-5.1) mmol/L BUN 77 H (9-20) mg/dL Creatinine 3.90 H (0.66-1.25) mg/dL Glucose 426 H (74-99) mg/dL POC Glucose (mg/dL) 393 H (75-99) mg/dL Calcium 8.0 L (8.4-10.2) mg/dL ALT 89 H (21-72) U/L Alkaline Phosphatase 165 H (38-126) U/L Total Protein 4.7 L (6.3-8.2) g/dL Albumin 2.3 L (3.5-5.0) g/dL Assessment and Plan Plan: Assessment: #1. Acute kidney injury currently hemodialysis dependent and maintained on a Thursday schedule a permacath. Urine output still not significant and renal function worsening when dialysis is held. No evidence of renal recovery at this time. #2. Systolic CHF with ejection fraction of 20%. #3. Chronic hypotension related to underlying cardiac status. #4. Volume overload. Improving. Plan: Hemodialysis tomorrow with goal 2-3 L ultrafiltration as blood pressure tolerates. Maintain Midodrine. Maintain Lasix 60 mg IV twice daily. Encouraged oral intake, particularly protein. Continue physical therapy.
[2016-09-22] MEDS ORDERED: DONEPEZIL 5 MG TAB PO SCH (09:00)
[2016-09-22] MEDS: IPRATROPIUM-ALBUTEROL 3 ML NEB INHALATION SCH (09:38)
[2016-09-22 11:00] VITALS: BP 113/67; PULSE 61; TEMP 98.1
--- NOTE | 2016-09-22 12:38 | PN ---
DATE OF SERVICE: 09/21/2016 I am covering for Dr. Farah. This 81-year-old gentleman who was admitted with shortness of breath multifactorial, chronic obstructive pulmonary disease and congestive heart failure acute exacerbation. Patient is extremely tired at this time. The patient is slated to go to ECF with PT, OT evaluation. Dr. Hernández and as well as pulmonary is following the patient closely. No chest pain or palpitation. No fever. On exam alert and oriented times three. Pulse 68, blood pressure 102/64, respiratory rate 18, temperature 96.9, pulse ox 98% on room air. HEENT: Conjunctivae normal. NECK: No jugular venous distention. CARDIOVASCULAR: S1, S2 muffled. RESPIRATORY: Breath sounds diminished at the base. Bilateral scattered rhonchi and crackles. ABDOMEN: Soft, nontender. Legs: No edema, no swelling. Nervous system: No focal deficits. LABS: WBC 10.8, hemoglobin is 10.7 and glucose 148, creatinine is 2.81. ASSESSMENT: 1. Shortness of breath multifactorial, chronic obstructive pulmonary disease, acute exacerbation, with acute purulent tracheobronchitis, as well as congestive heart failure acute exacerbation, with acute on chronic systolic dysfunction, ejection fraction less than 20%. 2. Gait dysfunction. 3. End stage renal disease stage V on hemodialysis, Thursday, , Thursday. 4. Ischemic cardiomyopathy status post AICD. 5. Chronic atrial fibrillation on Apixaban. 6. Hypertension. 7. Hyperlipidemia. 8. Diabetes mellitus type 2. 9. Benign prostatic hypertrophy. 10. History of recent pseudomonas pneumonia. 11. Severe protein calorie malnutrition with a body mass index of 18.4. 12. Gait dysfunction. 13. Elevated ALT. 14. Troponin 0.106 of undetermined etiology. 15. FULL CODE. RECOMMENDATIONS AND DISCUSSION: Recommend to continue current medications, continue with monitoring. Continue the bronchodilators. Continue to monitor fluid and electrolytes balance closely. PT/OT evaluation. Creatinine is 2.81 at this time. Possible ECF rehab. Dr. Farah will follow tomorrow. Guarded prognosis. Further recommendations to follow.
--- NOTE | 2016-09-28 20:59 | P.DS ---
Providers Date of admission: 09/16/16 11:11 Attending physician: Jose Farah Primary care physician: Jose Farah - Discharge Diagnosis(es) (1) Acute exacerbation of chronic obstructive pulmonary disease Status: Acute (2) Chronic renal failure Status: Acute (3) AICD (automatic cardioverter/defibrillator) present Status: Acute (4) Afib Status: Acute (5) Nonischemic cardiomyopathy Status: Acute Hospital Course: This is discharge on 81-year-old white male who was recently discharged for acute renal failure on chronic renal failure. He was discharged to the F and had significant shortness of breath requiring continued dialysis. She is admitted for about 6 days and had elements of dialysis. Pulmonology with nephrology was consulted. He was discharged in stable condition but because of his significant cardiorenal syndrome, his prognosis is quite poor given his advancing age. He is discharged in stable but guarded condition to follow-up with me in approximately 2-3 weeks once discharged from [facility]. Patient Condition at Discharge: Fair Plan - Discharge Summary Discharge Medication List RX: Digoxin [Lanoxin] 125 mcg PO Q48H 09/03/14 [History] RX: Insulin Detemir [Levemir Flextouch] 22 units SQ DAILY@0700 09/03/14 [History ] RX: Lovastatin [Mevacor] 40 mg PO HS@2100 09/03/14 [History] RX: Multivitamins, Thera [Multivitamin (formulary)] 1 tab PO DAILY@1700 [History] RX: hydrALAZINE HCL [Apresoline] 25 mg PO TID@0600,1400,2100 09/03/14 [History] RX: Apixaban [Eliquis] 2.5 mg PO BID@0800,1700 01/18/16 [History] RX: Isosorbide Dinitrate [Isordil] 10 mg PO TID 01/18/16 [History] RX: Rivastigmine Tartrate [Rivastigmine] 1.5 mg PO BID@0800,1700 01/18/16 [ History] RX: Insulin Aspart [NovoLOG Flexpen] See Protocol SQ TID@0700,1100,1730 [History] RX: Dorzolamide/Timolol/Pf [Cosopt Pf 2%/5% Ophth Droperette] 1 applicator BOTH EYES BID@0800,1700 08/15/16 [History] RX: Furosemide [Lasix] 40 mg PO DAILY@0600 08/15/16 [History] RX: ALPRAZolam [Xanax] 0.25 mg PO TID PRN #90 tab 09/10/16 [Rx] RX: Nystatin 100,000 Unit/ml Susp [Mycostatin Oral Susp] 500,000 unit PO QID cup 09/10/16 [Rx] RX: Acetaminophen Tab [Tylenol] 650 mg PO Q4H PRN 09/16/16 [History] RX: Amiodarone [Cordarone] 200 mg PO BID@0800,1700 09/16/16 [History] RX: Bisacodyl 10 mg RECTAL DAILY PRN 09/16/16 [History] RX: Docusate [Colace] 100 mg PO BID@0800,1700 09/16/16 [History] RX: Ipratropium-Albuterol Nebulize [Duoneb 0.5 mg-3 mg/3 ml Soln] 3 ml INHALATION RT-QID PRN 09/16/16 [History] RX: Magnesium Hydroxide [Milk of Magnesia] 2,400 mg PO DAILY PRN 09/16/16 [ History] RX: Megestrol [Megace] 400 mg PO DAILY@0800 09/16/16 [History] RX: Metoprolol Succinate (ER) [Toprol XL] 50 mg PO DAILY@1700 09/16/16 [History] RX: Midodrine [ProAmatine] 5 mg PO TID@0700,1100,1730 09/16/16 [History] RX: Pantoprazole [Protonix] 40 mg PO DAILY@0800 09/16/16 [History] RX: guaiFENesin SYRUP 100MG/5ML [Robitussin] 200 mg PO Q4H PRN 09/16/16 [History ] RX: Ipratropium-Albuterol Nebulize [Duoneb 0.5 mg-3 mg/3 ml Soln] 3 ml INHALATION RT-QID ampul.neb 09/22/16 [Rx] RX: Midodrine [ProAmatine] 10 mg PO AC-TID tab 09/22/16 [Rx] RX: cefTRIAXone [Rocephin] 1,000 mg IVPB Q24HR vial 09/22/16 [Rx] Follow up Appointment(s)/Referral(s): Jose Farah MD [Primary Care Provider] - 1-2 days Discharge Disposition: TRANSFER TO SNF/ECF
== END 2016-09-22 11:57 | DRG 291 ==
LOC: EC 09:13 → 6SEL 11:11
PROVIDERS: ADMIT Family Medicine; ATTEND Family Medicine
PROC: 5A1D60Z (ICD-10-PCS; principal; 2016-09-17)
DX: I13.2 Hypertensive heart and chronic kidney disease with heart failure and with stage 5 chronic kidney disease, or end stage renal disease (principal); I50.23 Acute on chronic systolic (congestive) heart failure; E43 Unspecified severe protein-calorie malnutrition; N17.9 Acute kidney failure, unspecified; I95.89 Other hypotension; N18.6 End stage renal disease; E11.22 Type 2 diabetes mellitus with diabetic chronic kidney disease; E11.649 Type 2 diabetes mellitus with hypoglycemia without coma; I07.1 Rheumatic tricuspid insufficiency; I48.2 Chronic atrial fibrillation; J44.1 Chronic obstructive pulmonary disease with (acute) exacerbation; N39.0 Urinary tract infection, site not specified; Z68.1 Body mass index [BMI] 19.9 or less, adult; Z99.2 Dependence on renal dialysis; E78.5 Hyperlipidemia, unspecified; I25.5 Ischemic cardiomyopathy; N40.0 Benign prostatic hyperplasia without lower urinary tract symptoms; Z79.4 Long term (current) use of insulin; Z85.828 Personal history of other malignant neoplasm of skin; Z95.810 Presence of automatic (implantable) cardiac defibrillator; Z82.49 Family history of ischemic heart disease and other diseases of the circulatory system; Z88.8 Allergy status to other drugs, medicaments and biological substances; Z91.041 Radiographic dye allergy status; Z91.013 Allergy to seafood
CPT/HCPCS: 36415; 71020; 80053; 81001; 82550; 82553; 83036; 83735; 83880; 84100; 84484; 85025; 85027; 85610; 85730; 87040; 87502; 90935; 93005; 94640; 94760; 96365; 96375; 99285

== ENCOUNTER 2016-10-13 20:13 | Inpatient (IN) | payer MEDICARE, BC ==
[2016-10-13 20:53] LABS: Anisocytosis Slight; Basophils # (A) 0.1 k/uL (0-0.2); Basophils % (A) 1 %; CH 27.8; CHCM 29.8; Eosinophils # (A) 0.9 k/uL (0-0.7); Eosinophils % (A) 8 %; HCT 27.4 % (39.0-53.0); HDW 3.62; HGB 8.8 gm/dL (13.0-17.5); Hypochromasia Marked; Luc # (Auto) 0.31; Luc % (Auto) 3; Lymphocytes # (A) 1.6 k/uL (1.0-4.8); Lymphocytes % (A) 15 %; MCH 30.4 pg (25.0-35.0); MCHC 32.2 g/dL (31.0-37.0); MCV 94.3 fL (80.0-100.0); Macrocytosis Slight; Mean Platelet Volume 9.6; Monocytes # (A) 0.7 k/uL (0-1.0); Monocytes % (A) 6 %; Neutrophils # (A) 7.3 k/uL (1.3-7.7); Neutrophils % (A) 67 %; Poikilocytosis Slight; RBC 2.91 m/uL (4.30-5.90); WBC 10.8 k/uL (3.8-10.6); WBC (Perox) 11.52
[2016-10-13 21:19] LABS: INR 1.3 (<1.1); Partial Thromboplastin Time 24.6 sec (22.0-30.0); Prothrombin Time 12.4 sec (9.0-12.0)
[2016-10-13 21:24] LABS: Calcium 8.1 mg/dL (8.4-10.2); Potassium 3.8 mmol/L (3.5-5.1); Total Bilirubin 0.9 mg/dL (0.2-1.3)
--- NOTE | 2016-10-13 21:40 | ED ---
SOB HPI - General Chief Complaint: Shortness of Breath Stated Complaint: SOB/HTN Time Seen by Provider: 10/13/16 21:02 Source: patient, family Mode of arrival: EMS Limitations: no limitations - History of Present Illness Initial Comments: This patient is an 81-year-old man who presents to be evaluated for cough and shortness of breath. The [facility]. While there this afternoon he started having cough with a lot of phlegm and started feeling short of breath. They phoned EMS and brought him here. The patient states that he was watching the baseball game at television when he developed. He had not been having fever. He denies chest pain. Patient denies change in bowel movements. The patient does have an indwelling catheter currently and they had not noted any change in the urine output. No recent leg pain or swelling. MD Complaint: shortness of breath, cough -: hour(s) Consistency: constant Improves With: nothing Worsens With: nothing Associated Symptoms: denies other symptoms - Related Data Home Medications Medication Instructions Recorded Confirmed Insulin Detemir [Levemir Flextouch] 6 units SQ DAILY@0700 09/03/14 10/13/16 Lovastatin [Mevacor] 40 mg PO HS@2100 09/03/14 10/13/16 Apixaban [Eliquis] 2.5 mg PO BID@0800,1700 01/18/16 10/13/16 Isosorbide Dinitrate [Isordil] 10 mg PO BID@0800,1700 01/18/16 10/13/16 Rivastigmine Tartrate 1.5 mg PO BID@0800,1700 01/18/16 10/13/16 [Rivastigmine] Furosemide [Lasix] 40 mg PO DAILY@0600 08/15/16 10/13/16 Acetaminophen Tab [Tylenol] 650 mg PO Q4H PRN 09/16/16 10/13/16 Amiodarone [Cordarone] 200 mg PO BID@0800,1700 09/16/16 10/13/16 Docusate [Colace] 100 mg PO BID@0800,1700 09/16/16 10/13/16 Megestrol [Megace] 400 mg PO DAILY@0800 09/16/16 10/13/16 Metoprolol Succinate (ER) [Toprol 50 mg PO DAILY@1700 09/16/16 10/13/16 XL] Midodrine [ProAmatine] 5 mg PO TID@0600,1400,2100 09/16/16 10/13/16 Pantoprazole [Protonix] 40 mg PO DAILY@0600 09/16/16 10/13/16 guaiFENesin SYRUP 100MG/5ML 200 mg PO Q4H PRN 09/16/16 10/13/16 [Robitussin] B Complex & C No.20/Folic Acid 1 mg PO DAILY@1700 10/03/16 10/13/16 [Nephrocaps Softgel] Bisacodyl [Dulcolax] 10 mg RECTAL DAILY PRN 10/03/16 10/13/16 Dorzolamide 2% [Trusopt 2%] 1 drops BOTH EYES BID@0800,1700 10/03/16 10/13/16 Glucerna 1.5 237 ml PO BID@0800,1700 10/03/16 10/13/16 Insulin Aspart [NovoLOG Flexpen] See Protocol SQ ACHS 10/03/16 10/13/16 Na Phos,M-B/Na Phos,Di-Ba [Fleet 133 ml RECTAL ONCE PRN 10/13/16 10/13/16 Adult] Previous Rx's Medication Instructions Recorded Nystatin 100,000 Unit/ml Susp 500,000 unit PO QID cup 09/10/16 [Mycostatin Oral Susp] Ipratropium-Albuterol Nebulize 3 ml INHALATION RT-QID PRN #0 10/09/16 [Duoneb 0.5 mg-3 mg/3 ml Soln] ampul.neb ALPRAZolam [Xanax] 0.25 mg PO TID PRN #20 tablet 10/18/16 Ampicillin Trihydrate 250 mg PO BID 7 Days 10/18/16 Darbepoetin Bhavesh [Aranesp] 40 mcg SQ Q7D syringe 10/18/16 Allergies Allergy/AdvReac Type Severity Reaction Status Date / Time fish oil Allergy Unknown Verified 10/13/16 21:30 Iodinated Contrast Media - Allergy Rash/Hives Verified 10/13/16 21:30 Oral and [Iodinated Contrast Media - IV Dye] shellfish derived Allergy Rash/Hives Verified 10/13/16 21:30 warfarin sodium Allergy Unknown Verified 10/13/16 21:30 [From Coumadin] Review of Systems ROS Statement: Those systems with pertinent positive or pertinent negative responses have been documented in the HPI. ROS Other: All systems not noted in ROS Statement are negative. Constitutional: Denies: fever, chills Respiratory: Reports: cough, dyspnea. Denies: hemoptysis Cardiovascular: Denies: chest pain, palpitations, edema, syncope Gastrointestinal: Denies: abdominal pain, vomiting, diarrhea Genitourinary: Reports: other (Indwelling catheter). Denies: dysuria, hematuria Skin: Reports: lesions (Sacral decubitus ulcer). Denies: rash Neurological: Reports: weakness (Generalized). Denies: headache, numbness, paresthesias Past Medical History Past Medical History: Atrial Fibrillation, Heart Failure, Diabetes Mellitus, Hypertension, Renal Disease, Skin Disorder Additional Past Medical History / Comment(s): Pt recently admitted to [facility] on 04/21 with pneumonia/ influenza B. He was also started on dialysis at that time per his spouse. He was discharged to [facility] for rehab. Other Hx: Hemodialysis Tue/Th/Sat, chronic mujica lately, cardiomyopathy, R elbow and coccyx wounds currently, IDDM type II, spouse denies pt ever having HTN, bronchitis, bronchospasms, skin cancer with removal. History of Any Multi-Drug Resistant Organisms: None Reported Past Surgical History: AICD, Cholecystectomy, Hernia Repair Additional Past Surgical History / Comment(s): defibrillator, cataracts removed , skin CA removed from face, colonoscopy, L inguinal hernia repair. Past Anesthesia/Blood Transfusion Reactions: No Reported Reaction Type of Cardiac Device: AICD Device Placement Date:: 07-28-11 Past Psychological History: No Psychological Hx Reported Additional Psychological History / Comment(s): Pt is now at [facility] for rehab. Spouse states yesterday, pt walked 160 feet with a walker before becoming ill. Smoking Status: Never smoker Past Alcohol Use History: None Reported Past Drug Use History: None Reported - Past Family History Mother History Unknown: Yes Additional Family Medical History / Comment(s): Pt does not know parents history -he was raised in foster care. Son(s) Family Medical History: AFIB Additional Family Medical History / Comment(s): son had heart transplant General Exam Limitations: no limitations General appearance: alert, other (This patient is an elderly man who does not appear well but is at this point in no acute distress.) Head exam: Present: atraumatic, normocephalic Eye exam: Present: normal appearance. Absent: scleral icterus, conjunctival injection ENT exam: Present: mucous membranes dry Neck exam: Present: normal inspection Respiratory exam: Present: rales (Right base), rhonchi. Absent: respiratory distress, wheezes, stridor, accessory muscle use, decreased breath sounds Cardiovascular Exam: Present: regular rate, normal rhythm, normal heart sounds. Absent: systolic murmur, diastolic murmur, rubs, gallop GI/Abdominal exam: Present: soft. Absent: distended, tenderness, guarding, rebound, mass, pulsatile mass, hernia Extremities exam: Present: normal inspection, normal capillary refill. Absent: pedal edema, calf tenderness Back exam: Present: normal inspection. Absent: CVA tenderness (R), CVA tenderness (L) Neurological exam: Present: alert, oriented X3. Absent: motor sensory deficit Skin exam: Present: warm, dry, normal color, other (The patient has 2 small stage II sacral decubitus ulcers that are dressed and shows no signs of secondary infection at this point.) Course Vital Signs 10/13/16 10/13/16 10/13/16 20:17 20:21 21:00 Temperature 96.8 F L 97.8 F Pulse Rate 72 90 63 Pulse Rate [ Electrical Controls Assembler ] Respiratory 22 20 22 Rate Blood Pressure 111/64 116/58 129/71 Blood Pressure [Right Arm Sitting] O2 Sat by Pulse 85 L 100 98 Oximetry 10/13/16 10/13/16 10/13/16 21:24 21:38 21:58 Temperature 98.0 F Pulse Rate 91 Pulse Rate [ 62 64 Electrical Controls Assembler ] Respiratory 22 20 20 Rate Blood Pressure 114/64 Blood Pressure 119/79 111/60 [Right Arm Sitting] O2 Sat by Pulse 100 Oximetry 10/13/16 10/13/16 10/13/16 22:08 22:12 22:22 Temperature Pulse Rate 62 66 Pulse Rate [ 60 Electrical Controls Assembler ] Respiratory 18 Rate Blood Pressure Blood Pressure 111/59 [Right Arm Sitting] O2 Sat by Pulse 100 Oximetry 10/13/16 10/13/16 10/14/16 22:23 22:33 00:38 Temperature 97.6 F Pulse Rate 69 Pulse Rate [ 66 62 Electrical Controls Assembler ] Respiratory 18 20 18 Rate Blood Pressure 105/57 Blood Pressure 115/66 127/58 [Right Arm Sitting] O2 Sat by Pulse 100 100 100 Oximetry 10/14/16 10/14/16 10/14/16 00:53 01:08 01:23 Temperature Pulse Rate Pulse Rate [ 62 62 60 Electrical Controls Assembler ] Respiratory 18 18 18 Rate Blood Pressure Blood Pressure 114/61 119/79 116/61 [Right Arm Sitting] O2 Sat by Pulse 100 99 Oximetry 10/14/16 10/14/16 10/14/16 02:50 03:20 04:31 Temperature 97.6 F 97.8 F Pulse Rate 65 62 60 Pulse Rate [ Electrical Controls Assembler ] Respiratory 18 18 18 Rate Blood Pressure 125/66 131/65 114/58 Blood Pressure [Right Arm Sitting] O2 Sat by Pulse 97 100 95 Oximetry Medical Decision Making - Lab Data Result diagrams: 10/18/16 10:25 10/18/16 10:25 Lab Results 10/13/16 10/13/16 10/13/16 Range/Units 20:27 20:27 21:00 WBC 10.8 H (3.8-10.6) k/uL RBC 2.91 L (4.30-5.90) m/uL Hgb 8.8 L (13.0-17.5) gm/dL Hct 27.4 L (39.0-53.0) % MCV 94.3 (80.0-100.0) fL MCH 30.4 (25.0-35.0) pg MCHC 32.2 (31.0-37.0) g/dL RDW 19.0 H (11.5-15.5) % Plt Count 321 (150-450) k/uL Neutrophils % 67 % Lymphocytes % 15 % Monocytes % 6 % Eosinophils % 8 % Basophils % 1 % Neutrophils # 7.3 (1.3-7.7) k/uL Lymphocytes # 1.6 (1.0-4.8) k/uL Monocytes # 0.7 (0-1.0) k/uL Eosinophils # 0.9 H (0-0.7) k/uL Basophils # 0.1 (0-0.2) k/uL Hypochromasia Marked Poikilocytosis Slight Anisocytosis Slight Macrocytosis Slight PT 12.4 H (9.0-12.0) sec INR 1.3 (<1.1) APTT 24.6 (22.0-30.0) sec D-Dimer (<0.60) mg/L FEU Sodium (137-145) mmol/L Potassium (3.5-5.1) mmol/L Chloride (98-107) mmol/L Carbon Dioxide (22-30) mmol/L Anion Gap mmol/L BUN (9-20) mg/dL Creatinine (0.66-1.25) mg/dL Est GFR (MDRD) Af Amer (>60 ml/min/1.73 sqM) Est GFR (MDRD) Non-Af (>60 ml/min/1.73 sqM) Glucose (74-99) mg/dL Estimated Ave Glu mg/dL 154 mg/dL Hemoglobin A1c 7.0 H (4.2-6.1) % Plasma Lactic Acid Chase (0.7-2.0) mmol/L Calcium (8.4-10.2) mg/dL Total Bilirubin (0.2-1.3) mg/dL AST (17-59) U/L ALT (21-72) U/L Alkaline Phosphatase (38-126) U/L Total Protein (6.3-8.2) g/dL Albumin (3.5-5.0) g/dL Urine Color Urine Appearance (Clear) Urine pH (5.0-8.0) Ur Specific [place] (1.001-1.035) Urine Protein (Negative) Urine Glucose (UA) (Negative) Urine Ketones (Negative) Urine Blood (Negative) Urine Nitrite (Negative) Urine Bilirubin (Negative) Urine Urobilinogen (<2.0) mg/dL Ur Leukocyte Esterase (Negative) Urine RBC (0-5) /hpf Urine WBC (0-5) /hpf Urine WBC Clumps (None) /hpf Ur Squamous Epith Cells (0-4) /hpf Urine Bacteria (None) /hpf Hyaline Casts (0-2) /lpf Urine Mucus (None) /hpf Urine Yeast (Budding) (None) /hpf 10/13/16 10/13/16 10/13/16 Range/Units 21:00 21:00 21:00 WBC (3.8-10.6) k/uL RBC (4.30-5.90) m/uL Hgb (13.0-17.5) gm/dL Hct (39.0-53.0) % MCV (80.0-100.0) fL MCH (25.0-35.0) pg MCHC (31.0-37.0) g/dL RDW (11.5-15.5) % Plt Count (150-450) k/uL Neutrophils % % Lymphocytes % % Monocytes % % Eosinophils % % Basophils % % Neutrophils # (1.3-7.7) k/uL Lymphocytes # (1.0-4.8) k/uL Monocytes # (0-1.0) k/uL Eosinophils # (0-0.7) k/uL Basophils # (0-0.2) k/uL Hypochromasia Poikilocytosis Anisocytosis Macrocytosis PT (9.0-12.0) sec INR (<1.1) APTT (22.0-30.0) sec D-Dimer 0.65 H (<0.60) mg/L FEU Sodium 141 (137-145) mmol/L Potassium 3.8 (3.5-5.1) mmol/L Chloride 101 (98-107) mmol/L Carbon Dioxide 31 H (22-30) mmol/L Anion Gap 9 mmol/L BUN 47 H (9-20) mg/dL Creatinine 3.19 H (0.66-1.25) mg/dL Est GFR (MDRD) Af Amer 23 (>60 ml/min/1.73 sqM) Est GFR (MDRD) Non-Af 19 (>60 ml/min/1.73 sqM) Glucose 177 H (74-99) mg/dL Estimated Ave Glu mg/dL mg/dL Hemoglobin A1c (4.2-6.1) % Plasma Lactic Acid Chase 2.0 (0.7-2.0) mmol/L Calcium 8.1 L (8.4-10.2) mg/dL Total Bilirubin 0.9 (0.2-1.3) mg/dL AST 26 (17-59) U/L ALT 34 (21-72) U/L Alkaline Phosphatase 184 H (38-126) U/L Total Protein 6.0 L (6.3-8.2) g/dL Albumin 2.4 L (3.5-5.0) g/dL Urine Color Urine Appearance (Clear) Urine pH (5.0-8.0) Ur Specific [place] (1.001-1.035) Urine Protein (Negative) Urine Glucose (UA) (Negative) Urine Ketones (Negative) Urine Blood (Negative) Urine Nitrite (Negative) Urine Bilirubin (Negative) Urine Urobilinogen (<2.0) mg/dL Ur Leukocyte Esterase (Negative) Urine RBC (0-5) /hpf Urine WBC (0-5) /hpf Urine WBC Clumps (None) /hpf Ur Squamous Epith Cells (0-4) /hpf Urine Bacteria (None) /hpf Hyaline Casts (0-2) /lpf Urine Mucus (None) /hpf Urine Yeast (Budding) (None) /hpf 10/14/16 Range/Units 01:00 WBC (3.8-10.6) k/uL RBC (4.30-5.90) m/uL Hgb (13.0-17.5) gm/dL Hct (39.0-53.0) % MCV (80.0-100.0) fL MCH (25.0-35.0) pg MCHC (31.0-37.0) g/dL RDW (11.5-15.5) % Plt Count (150-450) k/uL Neutrophils % % Lymphocytes % % Monocytes % % Eosinophils % % Basophils % % Neutrophils # (1.3-7.7) k/uL Lymphocytes # (1.0-4.8) k/uL Monocytes # (0-1.0) k/uL Eosinophils # (0-0.7) k/uL Basophils # (0-0.2) k/uL Hypochromasia Poikilocytosis Anisocytosis Macrocytosis PT (9.0-12.0) sec INR (<1.1) APTT (22.0-30.0) sec D-Dimer (<0.60) mg/L FEU Sodium (137-145) mmol/L Potassium (3.5-5.1) mmol/L Chloride (98-107) mmol/L Carbon Dioxide (22-30) mmol/L Anion Gap mmol/L BUN (9-20) mg/dL Creatinine (0.66-1.25) mg/dL Est GFR (MDRD) Af Amer (>60 ml/min/1.73 sqM) Est GFR (MDRD) Non-Af (>60 ml/min/1.73 sqM) Glucose (74-99) mg/dL Estimated Ave Glu mg/dL mg/dL Hemoglobin A1c (4.2-6.1) % Plasma Lactic Acid Chase (0.7-2.0) mmol/L Calcium (8.4-10.2) mg/dL Total Bilirubin (0.2-1.3) mg/dL AST (17-59) U/L ALT (21-72) U/L Alkaline Phosphatase (38-126) U/L Total Protein (6.3-8.2) g/dL Albumin (3.5-5.0) g/dL Urine Color Yellow Urine Appearance Cloudy (Clear) Urine pH 6.0 (5.0-8.0) Ur Specific [place] 1.012 (1.001-1.035) Urine Protein 2+ H (Negative) Urine Glucose (UA) Negative (Negative) Urine Ketones Negative (Negative) Urine Blood Moderate H (Negative) Urine Nitrite Negative (Negative) Urine Bilirubin Negative (Negative) Urine Urobilinogen <2.0 (<2.0) mg/dL Ur Leukocyte Esterase Large H (Negative) Urine RBC 62 H (0-5) /hpf Urine WBC 148 H (0-5) /hpf Urine WBC Clumps Moderate H (None) /hpf Ur Squamous Epith Cells <1 (0-4) /hpf Urine Bacteria Few H (None) /hpf Hyaline Casts 2 (0-2) /lpf Urine Mucus Rare H (None) /hpf Urine Yeast (Budding) Rare H (None) /hpf Disposition Clinical Impression: Diabetes, Chronic renal failure, Urinary tract infection, Anemia Disposition: TRANSFER TO [facility]/ECF
[2016-10-13] MEDS ORDERED: IPRATROPIUM-ALBUTEROL 3 ML NEB INHALATION STA (22:02)
--- NOTE | 2016-10-13 22:02 | XR ---
EXAMINATION TYPE: XR chest 1V portable DATE OF EXAM: 10/13/2016 9:45 PM COMPARISON: Prior chest x-ray from one week earlier. HISTORY: Difficulty in breathing. TECHNIQUE: Single AP portable frontal upright view of the chest is obtained. FINDINGS: There is stable right internal jugular dual-lumen dialysis catheter. There is no focal air space opacity or pneumothorax seen. Tiny to small bilateral pleural effusions are felt present with b lunting of bilateral costophrenic angles The cardiac silhouette size is stable and enlarged with sin gle lead pacemaker/AICD. There is interval improvement in central vascular congestion. The osseous s tructures are intact. IMPRESSION: Cardiomegaly with small to tiny bilateral pleural effusions is felt present. Interval im provement in central vascular congestion noted.
[2016-10-13] MEDS ORDERED: MORPHINE SULFATE 4 MG/ML SYRINGE IV STA (22:36)
[2016-10-14 02:31] LABS: Appearance,Urine Cloudy (Clear); Bacteria,Urine Few /hpf; Bilirubin,Urine Negative (Negative); Glucose,Urine (UA) Negative (Negative); Ketones,Urine Negative (Negative); Leukocyte Esterase,Urine Large (Negative); Mucus,Urine Rare /hpf; Nitrite,Urine Negative (Negative); Particle Count 9922; Protein,Urine 2+ (Negative); RBC,Urine 62 /hpf (0-5); Specific Gravity,Urine 1.012 (1.001-1.035); Squamous Epithelial Cell,Urine <1 /hpf (0-4); UA Billing (MACRO vs. MICRO) MICRO; Urobilinogen,Urine <2.0 mg/dL (<2.0); WBC,Urine 148 /hpf (0-5)
[2016-10-14] MEDS ORDERED: LEVOFLOXACIN 750MG-D5W PMX 750 MG in DEXTROSE/WATER 1 150ML.BAG IVPB STA (02:36)
[2016-10-14] MEDS ORDERED: ACETAMINOPHEN TAB 325 MG TAB PO PRN (03:32)
[2016-10-14] MEDS ORDERED: NALOXONE 0.4 MG/ML 1 ML VIAL IV PRN (03:32)
[2016-10-14] MEDS: SODIUM CHLORIDE 0.9% 1,000 ML IV SCH (04:33)
[2016-10-14] MEDS ORDERED: BISACODYL 10 MG SUPP RECTAL PRN (08:18)
[2016-10-14] MEDS ORDERED: guaiFENesin SYRUP 100MG/5ML 200 MG/10 ML CUP PO PRN (08:18)
[2016-10-14] MEDS ORDERED: ALPRAZolam 0.25 MG TAB PO PRN (08:18)
[2016-10-14] MEDS ORDERED: NA PHOS,M-B/NA PHOS,DI-BA 133 ML ENEMA RECTAL PRN (08:18)
[2016-10-14] MEDS ORDERED: AMPICILLIN-SULBACTAM 1.5 GM in SODIUM CHLORIDE 0.9% 50 ML IVPB SCH (08:30)
[2016-10-14] MEDS ORDERED: HEPARIN SODIUM,PORCINE 5,000 UNIT/ML 1 ML VIAL SQ SCH (09:00)
[2016-10-14] MEDS: NYSTATIN 100,000 UNIT/ML SUSP 500,000 UNIT/5 ML CUP PO SCH ×4 (10:00→21:54)
[2016-10-14 11:14] LABS: Glucose,Whole Blood 118 mg/dL (75-99)
[2016-10-14] MEDS: IPRATROPIUM-ALBUTEROL 3 ML NEB INHALATION PRN (11:46)
[2016-10-14] MEDS: MIDODRINE 5 MG TAB PO SCH ×2 (12:53→21:54)
[2016-10-14] MEDS: INSULIN LISPRO (humaLOG) 300 UNIT/3 ML VIAL SQ SCH ×2 (12:53→17:46)
[2016-10-14] MEDS: DONEPEZIL 5 MG TAB PO SCH (12:53)
--- NOTE | 2016-10-14 15:14 | CONS ---
DATE OF CONSULTATION: 10/14/2016 Reason for consult is acute kidney injury, dialysis-dependent. HISTORY OF PRESENT ILLNESS: Patient is an 81-year-old white male with history of acute kidney injury, currently hemodialysis-dependent. He was admitted to the hospital with complaints of weakness, not feeling well. Patient had been hypotensive. He was also short of breath. He has an indwelling Clarke catheter. PAST MEDICAL HISTORY: A. fib, severe cardiomyopathy, ejection fraction less than 20%, type 2 diabetes, hypertension, generalized debility. PAST SURGICAL HISTORY: AICD placement, Permacath placement, hernia repair, cholecystectomy, cataract surgery. Medications at home prior to admission included Digoxin, Mevacor, Eliquis, Lasix, Tylenol, Cordarone, Colace, Megace, magnesium, midodrine, Protonix, Xanax, insulin. Allergies include FISH OIL, IV DYE, SHELLFISH, COUMADIN. REVIEW OF SYSTEMS: Negative for fever, chills, nausea or vomiting. No diarrhea. The rest of review of systems as per HPI. On examination, patient is comfortable, awake, not in any acute distress. Blood pressure is 112/46, heart rate 68 per minute. He is afebrile. Examination of the heart, S1 and S2. Examination of the lungs, bilateral breath sounds are heard. Abdomen is soft, nontender. Examination of the lower extremities shows edema 1+ bilaterally. [employer]WIN[employer] TE[employer]ER exam is grossly intact. Labs show sodium 141, potassium 3.8, UA shows WBC is 148. Hemoglobin 8.8 g/dL. ASSESSMENT: 1. Acute kidney injury, currently hemodialysis-dependent. Will arrange for hemodialysis today. 2. Severe cardiomyopathy with ejection fraction of less than 20%. 3. Fluid overload, currently maintained on dialysis to maintain adequate volume status. 4. Urinary tract infection, patient has an indwelling Clarke catheter. 5. Atrial fibrillation, maintained on amiodarone. PLAN: Hemodialysis today with goal UF of about 2 L as tolerated. Will maintain patient on Lasix as well.
[2016-10-14] MEDS ORDERED: GLUCERNA PO SCH (17:00)
[2016-10-14 17:36] LABS: Glucose,Whole Blood 94 mg/dL (75-99)
[2016-10-14] MEDS: METOPROLOL SUCCINATE (ER) 50 MG TAB.ER.24H PO SCH (18:12)
[2016-10-14] MEDS: FOLIC ACID-VIT B COMPLEX-VIT C 1 CAP PO SCH (18:12)
[2016-10-14] MEDS: AMIODARONE 200 MG TAB PO SCH (18:12)
[2016-10-14] MEDS: ISOSORBIDE DINITRATE 10 MG TAB PO SCH (18:12)
[2016-10-14] MEDS: DOCUSATE 100 MG CAP PO SCH (18:13)
[2016-10-14] MEDS: APIXABAN 2.5 MG TABLET PO SCH (18:14)
[2016-10-14] MEDS: DORZOLAMIDE HCL 2% DROPS 10 ML BTL BOTH EYES SCH (18:19)
[2016-10-14] MEDS: ACETAMINOPHEN TAB 325 MG TAB PO PRN (19:54)
[2016-10-14 21:39] LABS: Glucose,Whole Blood 204 mg/dL (75-99)
[2016-10-14] MEDS ORDERED: traMADol 50 MG TAB PO PRN (21:49)
[2016-10-15] MEDS: INSULIN LISPRO (humaLOG) 300 UNIT/3 ML VIAL SQ SCH ×5 (00:43→23:29)
[2016-10-15 00:46] LABS: Glucose,Whole Blood 205 mg/dL (75-99)
[2016-10-15] MEDS: SODIUM CHLORIDE 0.9% 1,000 ML IV SCH (05:52)
[2016-10-15] MEDS: MIDODRINE 5 MG TAB PO SCH ×3 (06:11→18:55)
[2016-10-15] MEDS: PANTOPRAZOLE 40 MG TABLET PO SCH (06:12)
[2016-10-15 07:26] LABS: Glucose,Whole Blood 132 mg/dL (75-99)
[2016-10-15] MEDS: AMIODARONE 200 MG TAB PO SCH ×2 (08:29→17:18)
[2016-10-15] MEDS: NYSTATIN 100,000 UNIT/ML SUSP 500,000 UNIT/5 ML CUP PO SCH ×4 (08:30→23:27)
[2016-10-15] MEDS: DONEPEZIL 5 MG TAB PO SCH (08:30)
[2016-10-15] MEDS: MEGESTROL 400 MG/10 ML CUP PO SCH (08:30)
[2016-10-15] MEDS: APIXABAN 2.5 MG TABLET PO SCH ×2 (08:30→17:18)
[2016-10-15] MEDS: INSULIN DETEMIR 100 UNIT/ML 10 ML VIAL SQ SCH (08:30)
[2016-10-15] MEDS: ISOSORBIDE DINITRATE 10 MG TAB PO SCH ×2 (08:30→17:18)
[2016-10-15] MEDS: DORZOLAMIDE HCL 2% DROPS 10 ML BTL BOTH EYES SCH ×2 (08:31→17:18)
[2016-10-15] MEDS: DOCUSATE 100 MG CAP PO SCH ×2 (08:31→16:23)
[2016-10-15] MEDS: AMPICILLIN-SULBACTAM 1.5 GM in SODIUM CHLORIDE 0.9% 50 ML IVPB SCH (08:31)
--- NOTE | 2016-10-15 09:06 | P.PN ---
Subjective Principal diagnosis: Weakness This is a continue progress note on an 81-year-old white male essentially with history Of renal syndrome and end-stage renal disease with severe heart failure/ H fibrillation. He is admitted secondary to UTI and shortness of breath. He is scheduled for dialysis in a.m. He seems to be improving as far as his ambulation ability. No new voiding difficulties are stated. Objective - Vital Signs Vital signs: Vital Signs Temp 99.0 F 10/15/16 07:00 Pulse 61 10/15/16 07:00 Resp 16 10/15/16 07:00 BP 81/40 10/15/16 07:00 Pulse Ox 96 10/15/16 07:00 Intake & Output 10/14/16 10/15/16 10/15/16 18:59 06:59 18:59 Intake Total 300 Output Total 400 200 Balance -400 300 -200 Weight 49 kg Intake: Oral 300 Output: Urine 400 200 Coude 200 Other: Voiding Method Indwelling Catheter Indwelling Catheter - Constitutional General appearance: Present: thin - EENT Eyes: Absent: abnormal pupil - Respiratory Respiratory: bilateral: rhonchi - Cardiovascular Heart sounds: normal: S1, S2 - Gastrointestinal General gastrointestinal: Present: soft. Absent: tenderness - Labs CBC & Chem 7: 10/13/16 20:27 10/13/16 21:00 Labs: Abnormal Lab Results - Last 24 Hours (Table) 10/14/16 10/14/16 10/14/16 Range/Units 11:12 14:32 20:30 POC Glucose (mg/dL) 118 H (75-99) mg/dL Troponin I 0.067 H* 0.058 H* (0.000-0.034) ng/mL 10/14/16 10/15/16 10/15/16 Range/Units 21:16 00:42 02:59 POC Glucose (mg/dL) 204 H 205 H (75-99) mg/dL Troponin I 0.056 H* (0.000-0.034) ng/mL 10/15/16 Range/Units 07:15 POC Glucose (mg/dL) 132 H (75-99) mg/dL Troponin I (0.000-0.034) ng/mL Assessment and Plan (1) AICD (automatic cardioverter/defibrillator) present Status: Acute (2) Afib Status: Acute (3) Cardiomyopathy, nonischemic Status: Acute (4) Chronic kidney disease Status: Acute (5) Urinary tract infection Status: Acute Plan: Continue current regimen of antibiotic treatment. await urine culture. Check CMP in a.m. Prognosis is guarded secondary to his multiple comorbidities. He had elevation of troponin. I do suspect this could be related to his end- stage renal disease also area the patient does not describe any chest pain. Cardiology has been consulted otherwise. Time with Patient: Less than 30
[2016-10-15] MEDS: FUROSEMIDE 40 MG TAB PO SCH ×2 (09:35→18:50)
[2016-10-15 11:49] LABS: Glucose,Whole Blood 134 mg/dL (75-99)
[2016-10-15] MEDS: IPRATROPIUM-ALBUTEROL 3 ML NEB INHALATION PRN ×2 (12:50→20:46)
--- NOTE | 2016-10-15 13:03 | CDI ---
In responding to this query, please exercise your independent professional judgment. The [facility] Coding Staff and Clinical Documentation Specialists appreciate your assistance in clarifying documentation, maintaining compliance with coding guidelines, accurately documenting patients condition and capturing severity of illness. The fact that a question is asked does not imply that any particular answer is desired or expected. Communication forms are a method of clarifying documentation and are not made part of the Legal Health Record. Thank you in advance for your clarification. Last Revision, May 2015 [facility] [address] [facility] [place] [address] Documentation Clarification Form Date: 10/15/2016 From: SHANTEL Dumas, CCDS Admit Date: 10/14/2016 Patient Name: Jim Qureshi Visit Number: [id number] Dr Jose Farah, History/Risk Factors: End stage Renal Failure Dialysis Indwelling Catheter per ED Clinical Indicators: UTI documented in progress note on 10/15 Vital Signs: temp 96.8 on admission WBC: 10.8 on admisson Urinalysis: 2+ protein, moderate blood, large leukocytes, wbc 148 Urine Culture: pending Treatment: Antibiotics: IV Ampicillin IV fluids Please document the condition that these clinical indicators signify, whether Present on Admission, and cause if known: UTI associated with catheter UTI not associated to catheter Contaminated specimen Unable to determine Other Please document in your progress notes and discharge summary in order to capture severity of illness and risk of mortality. Include clinical findings that support your diagnosis. FYI: Press F11 to launch patient chart. Place X here if this finding has no clinical significance, is not applicable or if you are not able to provide any additional documentation. KIRSTIND
--- NOTE | 2016-10-15 14:42 | PN ---
Patient is seen for follow-up for acute kidney injury hemodialysis -dependent. He is currently sitting up in a bedside chair, alert, awake, alert and oriented x3. He is sitting eating. He denies any complaints. He tolerated his treatment fairly well yesterday. Blood pressure has been about 85 to 96 mmHg systolic. On examination, blood pressure currently is 81/40, heart rate 61 per minute. He is afebrile. Examination of the heart S1 and S2. Examination of the lungs: Bilateral breath sounds are heard. ABDOMEN: Soft, nontender. Examination of the lower extremities shows edema, 1+ bilaterally. ( ) Is grossly intact. Patient is moving all 4 extremities. Labs reveal last potassium was 3.8 on 10/13/2016. Urine culture grew group D enterococcus. ASSESSMENT: 1. Acute kidney injury hemodialysis dependent. The patient will be scheduled for dialysis tomorrow. 2. Severe cardiomyopathy with cardiorenal syndrome. Remains dialysis dependent, maintained on oral Lasix, which we can continue for now. 3. Atrial fibrillation maintained on Eliquis. 4. Urinary tract infection, maintained on Unasyn. 5. Chronic hypotension. Patient is on Midodrine which is around the clock, but at this time since his blood pressure is consistently low. PLAN: Check labs and hemodialysis in a.m.
[2016-10-15 15:16] LABS: Calcium 8.1 mg/dL (8.4-10.2); Potassium 4.2 mmol/L (3.5-5.1)
[2016-10-15] MEDS: METOPROLOL SUCCINATE (ER) 50 MG TAB.ER.24H PO SCH (16:22)
[2016-10-15 17:04] LABS: Glucose,Whole Blood 187 mg/dL (75-99)
[2016-10-15] MEDS: FOLIC ACID-VIT B COMPLEX-VIT C 1 CAP PO SCH (17:18)
[2016-10-15 21:49] LABS: Glucose,Whole Blood 143 mg/dL (75-99)
[2016-10-16] MEDS: ACETAMINOPHEN TAB 325 MG TAB PO PRN ×2 (01:20→22:15)
[2016-10-16] MEDS: PANTOPRAZOLE 40 MG TABLET PO SCH (05:54)
[2016-10-16] MEDS: SODIUM CHLORIDE 0.9% 1,000 ML IV SCH (05:54)
[2016-10-16] MEDS: MIDODRINE 5 MG TAB PO SCH ×3 (05:54→22:15)
[2016-10-16] MEDS: FUROSEMIDE 40 MG TAB PO SCH (06:26)
[2016-10-16 07:22] LABS: Glucose,Whole Blood 131 mg/dL (75-99)
[2016-10-16] MEDS: IPRATROPIUM-ALBUTEROL 3 ML NEB INHALATION PRN ×3 (08:02→16:50)
[2016-10-16] MEDS: INSULIN LISPRO (humaLOG) 300 UNIT/3 ML VIAL SQ SCH ×4 (08:13→21:39)
[2016-10-16] MEDS: DOCUSATE 100 MG CAP PO SCH ×3 (08:13→17:40)
[2016-10-16] MEDS: INSULIN DETEMIR 100 UNIT/ML 10 ML VIAL SQ SCH (08:13)
[2016-10-16] MEDS: AMIODARONE 200 MG TAB PO SCH ×2 (08:14→17:42)
[2016-10-16] MEDS: MEGESTROL 400 MG/10 ML CUP PO SCH (08:14)
[2016-10-16] MEDS: AMPICILLIN-SULBACTAM 1.5 GM in SODIUM CHLORIDE 0.9% 50 ML IVPB SCH (08:14)
[2016-10-16] MEDS: APIXABAN 2.5 MG TABLET PO SCH ×2 (08:14→17:41)
[2016-10-16] MEDS: DORZOLAMIDE HCL 2% DROPS 10 ML BTL BOTH EYES SCH ×2 (08:14→17:42)
[2016-10-16] MEDS: ISOSORBIDE DINITRATE 10 MG TAB PO SCH ×2 (08:14→17:41)
[2016-10-16] MEDS: NYSTATIN 100,000 UNIT/ML SUSP 500,000 UNIT/5 ML CUP PO SCH ×4 (08:14→21:39)
[2016-10-16] MEDS: DONEPEZIL 5 MG TAB PO SCH (08:17)
--- NOTE | 2016-10-16 08:56 | P.PN ---
Subjective Principal diagnosis: Weakness This is a continue progress note on an 81-year-old white male essentially with history Of renal syndrome and end-stage renal disease with severe heart failure/ H fibrillation. He is admitted secondary to UTI and shortness of breath. He is scheduled for dialysis in a.m. He seems to be improving as far as his ambulation ability. No new voiding difficulties are stated. However, he seems a little more congested. Nursing staff is noted that he has some rhonchi. Objective - Vital Signs Vital signs: Vital Signs Temp 97.2 F L 10/16/16 07:00 Pulse 60 10/16/16 08:13 Resp 18 10/16/16 07:00 BP 102/48 10/16/16 07:00 Pulse Ox 100 10/16/16 07:00 Intake & Output 10/15/16 10/16/16 10/16/16 18:59 06:59 18:59 Intake Total 365 300 Output Total 250 230 Balance 115 70 Weight 50 kg Intake: Oral 365 300 Output: Urine 250 230 Coude 200 60 Other: Voiding Method Indwelling Catheter Indwelling Catheter # Bowel Movements 2 - Constitutional General appearance: Present: thin - EENT Eyes: Absent: abnormal pupil - Respiratory Respiratory: bilateral: rhonchi - Cardiovascular Rhythm: irregularly irregular Heart sounds: normal: S1, S2 - Gastrointestinal General gastrointestinal: Present: soft. Absent: tenderness - Labs CBC & Chem 7: 10/13/16 20:27 10/15/16 14:31 Labs: Abnormal Lab Results - Last 24 Hours (Table) 10/15/16 10/15/16 10/15/16 Range/Units 11:37 14:31 16:52 BUN 26 H (9-20) mg/dL Creatinine 2.56 H (0.66-1.25) mg/dL Glucose 129 H (74-99) mg/dL POC Glucose (mg/dL) 134 H 187 H (75-99) mg/dL Calcium 8.1 L (8.4-10.2) mg/dL 10/15/16 10/16/16 Range/Units 21:26 07:20 BUN (9-20) mg/dL Creatinine (0.66-1.25) mg/dL Glucose (74-99) mg/dL POC Glucose (mg/dL) 143 H 131 H (75-99) mg/dL Calcium (8.4-10.2) mg/dL Assessment and Plan (1) AICD (automatic cardioverter/defibrillator) present Status: Acute (2) Afib Status: Acute (3) Cardiomyopathy, nonischemic Status: Acute (4) Chronic kidney disease Status: Acute (5) Urinary tract infection Status: Acute Plan: Continue dialysis for today. Hopefully we can possibly anticipate discharge in a.m. Continue therapy and antibiotic treatment. Check CMP in a.m. Time with Patient: Less than 30
[2016-10-16 09:04] LABS: Calcium 8.1 mg/dL (8.4-10.2); Potassium 4.6 mmol/L (3.5-5.1)
[2016-10-16 12:00] LABS: Glucose,Whole Blood 159 mg/dL (75-99)
--- NOTE | 2016-10-16 12:47 | CONS ---
DATE OF CONSULTATION: 10/14/2016 Mr. Qureshi is an 81-year-old gentleman who is seen for cardiac evaluation. This patient is seen in consultation for the abnormal troponin. Patient came to the hospital with the complaint of cough and shortness of breath. Patient currently is at a [facility] and he started having cough with a lot of sputum and some shortness of breath. Did not have any definite fever or chills. Did not have any chest pain. This patient was recently admitted with pneumonia and subsequently patient has been started on dialysis. Patient has a history of hypertension, diabetes, atrial fibrillation and congestive cardiac failure. Patient denies any significant orthopnea or PND. Past medical history includes a history of AICD, cholecystectomy and hernia repair. Patient also has a history of colonoscopy. Patient's home medications include Eliquis 2.5 mg b.i.d., insulin, Mevacor 40 mg daily, Lasix 40 mg daily, Cordarone 200 mg b.i.d., Megace, Toprol 50 mg daily, Xanax and regular insulin. Physical examination at present reveals an 81-year-old gentleman who does not appear to be in any acute distress. Patient was afebrile in the emergency room, heart rate is 90 per minute, respiratory rate is 20. HEENT examination is negative. Neck is supple. There is no increase in jugular venous pressure. HEART: First and second heart sounds are normal. Lungs reveal a few scattered wheezes. Abdomen is soft. Liver and spleen are not enlarged. EXTREMITIES: There is a trace leg edema. Peripheral pulsations are not well felt. Patient's electrolytes are normal. Creatinine is 3.19. Patient had 2 sets of the troponin which are 0.058 and 0.067. Patient's previous tropes are reviewed. Patient always runs borderline elevated troponins. Patient's EKG shows evidence of atrial fibrillation with controlled rate. FINAL IMPRESSION: 1. This patient is primarily admitted with symptoms of cough and shortness of breath secondary to possibly acute bronchitis and pneumonia. She is being treated. There is no evidence of any significant left ventricular failure. 2. Patient has a mild congestive cardiac failure. 3. Patient has a history of dialysis. 4. Patient had a mildly abnormal troponin, which could be secondary to underlying cardiomyopathy. Overall picture is not suggestive of acute coronary syndrome. There is no significant rise and fall in the troponin and patient used to run mildly elevated troponin all the time in the past. Thank you very much for letting me participate in the care of this nice gentleman.
[2016-10-16] MEDS ORDERED: HEPARIN SODIUM,PORCINE 5,000 UNIT/ML 1 ML VIAL ONE (13:00)
[2016-10-16 15:08] VITALS: BMI 20.1
--- NOTE | 2016-10-16 15:36 | P.PN ---
Subjective Patient is seen in follow-up for dialysis-dependent acute kidney injury. He is maintained on hemodialysis on a Thursday schedule via a permacath. He is currently resting in bed. Denies chest pain or shortness of breath. Oral intake is improved. No complaints at this time. He does of systolic CHF with ejection fraction of 20%. Currently on antibiotics for enterococcus UTI. Vital signs are stable. General: The patient appeared well nourished and normally developed. HEENT: Head exam is unremarkable. Neck is without jugular venous distension. LUNGS: Lungs are clear to auscultation and percussion. Breath sounds decreased. HEART: Rate and Rhythm are regular. First and second heart sounds normal. No murmurs, rubs or gallops. ABDOMEN: Abdominal exam reveals normal bowel sounds. Non-tender and non- distended. No evidence of peritonitis. EXTREMITITES: No clubbing, cyanosis, or edema. Objective - Vital Signs Vital signs: Vital Signs Temp 96.7 F L 10/16/16 14:47 Pulse 74 10/16/16 14:47 Resp 22 10/16/16 14:47 BP 99/48 10/16/16 14:47 Pulse Ox 99 10/16/16 14:47 Intake & Output 10/15/16 10/16/16 10/16/16 18:59 06:59 18:59 Intake Total 365 300 Output Total 250 230 110 Balance 115 70 -110 Weight 50 kg 50 kg Intake: Oral 365 300 Output: Urine 250 230 110 Coude 200 60 Other: Voiding Method Indwelling Catheter Indwelling Catheter # Bowel Movements 2 - Labs CBC & Chem 7: 10/13/16 20:27 10/16/16 08:15 Labs: Abnormal Lab Results - Last 24 Hours (Table) 10/15/16 10/15/16 10/16/16 Range/Units 16:52 21:26 07:20 BUN (9-20) mg/dL Creatinine (0.66-1.25) mg/dL Glucose (74-99) mg/dL POC Glucose (mg/dL) 187 H 143 H 131 H (75-99) mg/dL Calcium (8.4-10.2) mg/dL 10/16/16 10/16/16 Range/Units 08:15 11:58 BUN 38 H (9-20) mg/dL Creatinine 3.08 H (0.66-1.25) mg/dL Glucose 114 H (74-99) mg/dL POC Glucose (mg/dL) 159 H (75-99) mg/dL Calcium 8.1 L (8.4-10.2) mg/dL Assessment and Plan Plan: Assessment: #1. Dialysis-dependent acute kidney injury secondary to cardiorenal syndrome. #2. Systolic CHF with ejection fraction of 20%. #3. Enterococcus UTI maintained on antibiotics. #4. Anemia of chronic kidney disease. Plan: Patient underwent hemodialysis today without any problems. Next treatment on Thursday. Start Aranesp. Maintain Lasix.
[2016-10-16] MEDS ORDERED: DARBEPOETIN ALFA 40 MCG/0.4 ML SYRINGE SQ SCH (16:00)
[2016-10-16 16:59] LABS: Glucose,Whole Blood 152 mg/dL (75-99)
[2016-10-16] MEDS: METOPROLOL SUCCINATE (ER) 50 MG TAB.ER.24H PO SCH (17:41)
[2016-10-16] MEDS: FOLIC ACID-VIT B COMPLEX-VIT C 1 CAP PO SCH (17:42)
[2016-10-16 21:03] LABS: Glucose,Whole Blood 132 mg/dL (75-99)
[2016-10-17] MEDS: SODIUM CHLORIDE 0.9% 1,000 ML IV SCH (04:58)
[2016-10-17] MEDS: PANTOPRAZOLE 40 MG TABLET PO SCH (06:17)
[2016-10-17] MEDS: MIDODRINE 5 MG TAB PO SCH ×3 (06:17→20:41)
[2016-10-17 07:25] LABS: Glucose,Whole Blood 73 mg/dL (75-99)
[2016-10-17] MEDS: INSULIN LISPRO (humaLOG) 300 UNIT/3 ML VIAL SQ SCH ×4 (07:27→21:23)
[2016-10-17] MEDS: INSULIN DETEMIR 100 UNIT/ML 10 ML VIAL SQ SCH (07:48)
[2016-10-17] MEDS: AMPICILLIN-SULBACTAM 1.5 GM in SODIUM CHLORIDE 0.9% 50 ML IVPB SCH (08:34)
[2016-10-17] MEDS: AMIODARONE 200 MG TAB PO SCH ×2 (08:34→16:35)
[2016-10-17] MEDS: APIXABAN 2.5 MG TABLET PO SCH ×2 (08:34→16:35)
[2016-10-17] MEDS: MEGESTROL 400 MG/10 ML CUP PO SCH (08:34)
[2016-10-17] MEDS: ISOSORBIDE DINITRATE 10 MG TAB PO SCH ×2 (08:34→16:35)
[2016-10-17] MEDS: DOCUSATE 100 MG CAP PO SCH ×2 (08:34→16:35)
[2016-10-17] MEDS: NYSTATIN 100,000 UNIT/ML SUSP 500,000 UNIT/5 ML CUP PO SCH ×4 (08:34→21:23)
[2016-10-17] MEDS: FUROSEMIDE 40 MG TAB PO SCH (08:35)
[2016-10-17] MEDS: DONEPEZIL 5 MG TAB PO SCH (08:35)
[2016-10-17] MEDS: DORZOLAMIDE HCL 2% DROPS 10 ML BTL BOTH EYES SCH ×2 (08:35→16:35)
[2016-10-17 09:19] LABS: Calcium 7.9 mg/dL (8.4-10.2); Potassium 3.9 mmol/L (3.5-5.1); Total Bilirubin 1.1 mg/dL (0.2-1.3); Total Protein 6.2 g/dL (6.3-8.2)
--- NOTE | 2016-10-17 10:49 | P.PN ---
Subjective Principal diagnosis: Weakness This is an 81-year-old white male with end-stage renal disease and element of cardiorenal syndrome. The patient is now been stabilizing but states dialysis does tire the patient. I've had continued long discussion with the patient about possible palliative care versus hospice. At this time, the patient is refusing. Prognosis is guarded secondary to his multiple comorbidities. Objective - Vital Signs Vital signs: Vital Signs Temp 97.7 F 10/17/16 08:15 Pulse 63 10/17/16 10:47 Resp 16 10/17/16 08:15 BP 89/46 10/17/16 10:47 Pulse Ox 100 10/17/16 08:15 Intake & Output 10/16/16 10/17/16 10/17/16 18:59 06:59 18:59 Output Total 110 Balance -110 Weight 50 kg 51 kg Output: Urine 110 Other: Voiding Method Indwelling Catheter Indwelling Catheter Indwelling Catheter # Voids 1 - Constitutional General appearance: Present: thin - EENT Eyes: Absent: abnormal pupil - Neck Neck: Absent: lymphadenopathy - Respiratory Respiratory: bilateral: rhonchi - Cardiovascular Rhythm: irregularly irregular Heart sounds: normal: S1, S2 - Gastrointestinal General gastrointestinal: Present: soft. Absent: tenderness - Integumentary Integumentary: Absent: rash - Labs CBC & Chem 7: 10/13/16 20:27 10/17/16 08:27 Labs: Abnormal Lab Results - Last 24 Hours (Table) 10/16/16 10/16/16 10/16/16 Range/Units 11:58 16:56 21:02 Creatinine (0.66-1.25) mg/dL Glucose (74-99) mg/dL POC Glucose (mg/dL) 159 H 152 H 132 H (75-99) mg/dL Calcium (8.4-10.2) mg/dL Alkaline Phosphatase (38-126) U/L Total Protein (6.3-8.2) g/dL Albumin (3.5-5.0) g/dL 10/17/16 10/17/16 Range/Units 07:19 08:27 Creatinine 2.43 H (0.66-1.25) mg/dL Glucose 71 L (74-99) mg/dL POC Glucose (mg/dL) 73 L (75-99) mg/dL Calcium 7.9 L (8.4-10.2) mg/dL Alkaline Phosphatase 241 H (38-126) U/L Total Protein 6.2 L (6.3-8.2) g/dL Albumin 2.4 L (3.5-5.0) g/dL Assessment and Plan (1) AICD (automatic cardioverter/defibrillator) present Status: Acute (2) Afib Status: Acute (3) Cardiomyopathy, nonischemic Status: Acute (4) Chronic kidney disease Status: Acute (5) Urinary tract infection Status: Acute Plan: I will continue current regimen of treatment. Dialysis is scheduled for tomorrow. Check CMP in a.m. Hopefully we can transfer back to [facility] after the holiday weekend. However, prognosis is guarded given his multiple comorbidities. Dr. Obrien group covering for the weekend. Time with Patient: Less than 30
--- NOTE | 2016-10-17 11:28 | PN ---
Patient is seen for followup for acute kidney injury, currently dialysis-dependent. He is sitting up in bed, comfortable, not in any acute distress. He is maintained on a Thursday, , Thursday schedule for dialysis. On examination, blood pressure is 89/46, heart rate 63 per minute. He is afebrile. Examination of the heart, S1 and S2. Examination of the lungs, bilateral breath sounds are heard. Abdomen is soft, nontender. Examination of lower extremities shows edema 1+ bilaterally. Labs show sodium 138, potassium 3.9, serum creatinine 2.43. ASSESSMENT: 1. Acute kidney injury, currently dialysis-dependent. Etiology is severe cardiorenal syndrome. 2. Fluid overload, currently fairly stable. 3. Urinary tract infection with urine culture growing enterococcus and Monet albicans. 4. Urine retention, currently with indwelling Clarke catheter. 5. Severe cardiomyopathy, ejection fraction of about 20%. PLAN: Hemodialysis in a.m., consider discharge.
[2016-10-17 11:36] LABS: Glucose,Whole Blood 98 mg/dL (75-99)
[2016-10-17] MEDS: IPRATROPIUM-ALBUTEROL 3 ML NEB INHALATION PRN ×2 (11:49→16:22)
[2016-10-17] MEDS: METOPROLOL SUCCINATE (ER) 50 MG TAB.ER.24H PO SCH (16:06)
[2016-10-17 16:40] LABS: Glucose,Whole Blood 141 mg/dL (75-99)
[2016-10-17] MEDS: FOLIC ACID-VIT B COMPLEX-VIT C 1 CAP PO SCH (17:28)
[2016-10-17 21:04] LABS: Glucose,Whole Blood 162 mg/dL (75-99)
[2016-10-18] MEDS: SODIUM CHLORIDE 0.9% 1,000 ML IV SCH (04:06)
[2016-10-18] MEDS: FUROSEMIDE 40 MG TAB PO SCH (05:44)
[2016-10-18] MEDS: MIDODRINE 5 MG TAB PO SCH ×2 (05:44→12:41)
[2016-10-18] MEDS: PANTOPRAZOLE 40 MG TABLET PO SCH (05:44)
[2016-10-18 07:09] LABS: Glucose,Whole Blood 115 mg/dL (75-99)
[2016-10-18 07:27] VITALS: RESP 18
[2016-10-18] MEDS: INSULIN LISPRO (humaLOG) 300 UNIT/3 ML VIAL SQ SCH ×3 (07:37→17:18)
[2016-10-18] MEDS: INSULIN DETEMIR 100 UNIT/ML 10 ML VIAL SQ SCH (08:11)
[2016-10-18] MEDS: AMIODARONE 200 MG TAB PO SCH ×2 (08:11→18:09)
[2016-10-18] MEDS: APIXABAN 2.5 MG TABLET PO SCH ×2 (08:11→18:09)
[2016-10-18] MEDS: DOCUSATE 100 MG CAP PO SCH ×2 (08:12→18:09)
[2016-10-18] MEDS: DORZOLAMIDE HCL 2% DROPS 10 ML BTL BOTH EYES SCH ×2 (08:12→18:10)
[2016-10-18] MEDS: ISOSORBIDE DINITRATE 10 MG TAB PO SCH ×2 (08:13→18:08)
[2016-10-18] MEDS: MEGESTROL 400 MG/10 ML CUP PO SCH (08:13)
[2016-10-18] MEDS: DONEPEZIL 5 MG TAB PO SCH (08:13)
[2016-10-18] MEDS: AMPICILLIN-SULBACTAM 1.5 GM in SODIUM CHLORIDE 0.9% 50 ML IVPB SCH (08:13)
[2016-10-18] MEDS: NYSTATIN 100,000 UNIT/ML SUSP 500,000 UNIT/5 ML CUP PO SCH ×3 (08:14→18:10)
[2016-10-18 10:38] LABS: Anisocytosis Slight; CH 28.8; CHCM 30.3; HDW 3.33; Hypochromasia Marked; MCH 29.3 pg (25.0-35.0); MCHC 30.4 g/dL (31.0-37.0); MCV 96.1 fL (80.0-100.0); Macrocytosis Slight; Mean Platelet Volume 8.2; RDW 19.9 % (11.5-15.5); WBC 9.9 k/uL (3.8-10.6)
[2016-10-18 10:49] LABS: HGB 7.3 gm/dL (13.0-17.5)
[2016-10-18 11:37] LABS: Glucose,Whole Blood 146 mg/dL (75-99)
[2016-10-18 11:44] LABS: Calcium 7.8 mg/dL (8.4-10.2); Potassium 3.8 mmol/L (3.5-5.1); Total Bilirubin 0.9 mg/dL (0.2-1.3); Total Protein 5.6 g/dL (6.3-8.2)
[2016-10-18] MEDS: IPRATROPIUM-ALBUTEROL 3 ML NEB INHALATION PRN ×2 (12:17→16:24)
--- NOTE | 2016-10-18 12:48 | XR ---
EXAMINATION TYPE: XR chest 1V DATE OF EXAM: 10/18/2016 12:09 PM COMPARISON: Prior chest x-ray 13 October 2016 HISTORY: Abnormal chest x-ray, congestive heart failure TECHNIQUE: Single frontal view of the chest is obtained. FINDINGS: Right jugular central venous catheter is stable, heart remains enlarged. The cardiac defib rillator lead and generator are stable. There is no pneumothorax or pleural effusion. Surgical clips are present in the right upper quadrant. No focal pneumonia. Suspect improvement in aeration. IMPRESSION: Persistent cardiomegaly, there may be improvement in patient's volume status.
--- NOTE | 2016-10-18 13:08 | DS ---
DATE OF ADMISSION: 10/14/2016 DATE OF DISCHARGE: The patient is an 81-year-old with end-stage renal disease and has cardiorenal syndrome. Patient is on dialysis. Patient came in with what appears like respiratory failure, which improved at this point of time. Patient appears to have minimal congestion, which is expected to improve with dialysis. Patient can be discharged back to subacute rehabilitation today after dialysis. I repeated the chest x-ray, which did show some pulmonary edema with prominent bronchovascular markings and Linda B-lines. Patient has rhonchus breath sounds. We will discontinue the oxygen, if he is doing okay. I am expecting that his pulmonary edema will improve with dialysis and patient will be discharged subsequently. Patient has multiple medical problems. Patient is appropriate for hospice or palliative care, although Dr. Farah has been working with the family regarding this. Family still wanted to continue the care. REVIEW OF SYSTEMS: CARDIOVASCULAR: No chest pain, no orthopnea, no PND, no palpitations. PULMONARY: Denied any shortness of breath. No cough or hemoptysis. GASTROINTESTINAL: No diarrhea, nausea or vomiting. No abdominal pain. Normoactive bowel sounds. NEUROLOGIC: No headaches, no weakness, no numbness. Medications were reviewed. PHYSICAL EXAMINATION: VITAL SIGNS: Temperature 97.6, pulse of 60, respiratory rate of 18, blood pressure is 130/44, saturating at 94% on 2 L of O2 nasal cannula. GENERAL: The patient is alert and oriented x3, thin built, cachetic gentleman. HEENT: Pupils are round and equally reacting to light. EOMI. No scleral icterus. No conjunctival pallor. Normocephalic, atraumatic. No pharyngeal erythema. No thyromegaly. CARDIOVASCULAR: S1 and S2 present. No murmurs, rubs, or gallops. RESPIRATORY EXAMINATION: Rhonchus breath sounds bilaterally. Minimal bibasilar crackles were appreciated. ABDOMEN: Soft, nontender, nondistended, normoactive bowel sounds. No palpable organomegaly. MUSCULOSKELETAL: No joint swelling or deformity. EXTREMITIES: No cyanosis, clubbing, or pedal edema. NEUROLOGICAL: Gross neurological examination did not reveal any focal deficits. SKIN: No rashes. FINAL DIAGNOSES: 1. Cardiomyopathy, nonischemic cardiomyopathy, chronic systolic dysfunction. Patient has an AICD in place. 2. Atrial fibrillation. 3. Chronic kidney disease. End-stage renal disease secondary to cardiorenal syndrome. 4. Acute urinary tract infection, which his urine showed Enterococcus for which patient is on ampicillin, which will be continued. The organism is sensitive to ampicillin. Patient will continue 7 more days of ampicillin. Patient's Clarke catheter needs to be replaced. 5. Type 2 diabetes mellitus. 6. Hypertension. 7. Severe cachexia. 8. Poor functional status. Please refer to my depart summary for the details of discharge medications. Patient will be discharged if ( ) taken care of. Spent greater than 35 minutes in total discharge process. If patient ends up staying here, consider this as a progress note.
[2016-10-18 15:09] VITALS: BP 92/53; TEMP 96.9
[2016-10-18 16:45] VITALS: PULSE 66
--- NOTE | 2016-10-18 18:07 | PN ---
Patient is seen for followup for acute kidney injury, currently hemodialysis dependent. Patient will be dialyzed today and there are plans for discharge. On examination, he is comfortable. Blood pressure is 92/53. Heart rate 60 per minute. He is afebrile. EXAMINATION OF THE HEART: S1 and S2. EXAMINATION OF THE LUNGS: Bilateral breath sounds are heard. Examination of the lower extremities shows edema 1+ bilaterally. ABDOMEN: Soft, nontender. Labs show sodium 138, potassium 3.8, BUN 28, serum creatinine 3.13. Hemoglobin 7.3 g/dL. ASSESSMENT: 1. Acute kidney injury hemodialysis dependent. The patient will be dialyzed today. 2. Anemia with no active bleeding noted, maintained on Aranesp. Hemoglobin is lower. Patient is maintained on Aranesp while in the hospital. 3. Severe cardiomyopathy with cardiorenal syndrome. 4. Malnutrition. Albumin is at 2.1. Patient is encouraged to increase his oral protein intake. 5. Generalized debility. PLAN: Hemodialysis today. Patient can be discharged post dialysis. He will continue with ( ) stimulating agents as outpatient in the dialysis unit.
[2016-10-18] MEDS: FOLIC ACID-VIT B COMPLEX-VIT C 1 CAP PO SCH (18:08)
[2016-10-18] MEDS: METOPROLOL SUCCINATE (ER) 50 MG TAB.ER.24H PO SCH (18:10)
--- NOTE | 2016-11-21 13:31 | CDI ---
In responding to this query, please exercise your independent professional judgment. The [facility] Coding Staff and Clinical Documentation Specialists appreciate your assistance in clarifying documentation, maintaining compliance with coding guidelines, accurately documenting patients condition and capturing severity of illness. The fact that a question is asked does not imply that any particular answer is desired or expected. Communication forms are a method of clarifying documentation and are not made part of the Legal Health Record. Thank you in advance for your clarification. Last Revision, May 2015 Zandralilibeth Horowitz [address] [facility] [place] [address] Documentation Clarification Form Date: 10/15/2016 12:53:00 PM From: Magdalena Osman RN, CDI, CCDS Admit Date: 10/14/2016 3:32:00 AM Patient Name: Jim Qureshi Visit Number: [id number] Discharge Date: 10/18/16 Dr. Jose Farah: History/Risk Factors: End stage Renal Failure Dialysis Indwelling Catheter per ED Clinical Indicators: UTI documented in progress note on 10/15 Vital Signs: temp 96.8 on admission WBC: 10.8 on admisson Urinalysis: 2+ protein, moderate blood, large leukocytes, wbc 148 Urine Culture: pending Treatment: Antibiotics: IV Ampicillin IV fluids Please document the condition that these clinical indicators signify, whether Present on Admission, and cause if known: UTI associated with catheter UTI not associated to catheter Contaminated specimen Unable to determine Other Please document in your progress notes and discharge summary in order to capture severity of illness and risk of mortality. Include clinical findings that support your diagnosis. FYI: Press F11 to launch patient chart. Place X here if this finding has no clinical significance, is not applicable or if you are not able to provide any additional documentation. MTDD
--- NOTE | 2016-11-25 12:48 | CDI ---
In responding to this query, please exercise your independent professional judgment. The [facility] Coding Staff and Clinical Documentation Specialists appreciate your assistance in clarifying documentation, maintaining compliance with coding guidelines, accurately documenting patients condition and capturing severity of illness. The fact that a question is asked does not imply that any particular answer is desired or expected. Communication forms are a method of clarifying documentation and are not made part of the Legal Health Record. Thank you in advance for your clarification. Last Revision, May 2015 Zandracourt Horowitz [address] [facility] [place] [address] Documentation Clarification Form 3rd Request (Signing the query in [place] does not count as a response) Date: 10/15/2016 12:53:00 PM From: Magdalena Osman Admit Date: 10/14/2016 3:32:00 AM Patient Name: Jim Qureshi Visit Number: [id number] Dr. Jose Farah History/Risk Factors: End stage Renal Failure Dialysis Indwelling Catheter per ED Clinical Indicators: UTI documented in progress note on 10/15 Vital Signs: temp 96.8 on admission WBC: 10.8 on admission Urinalysis: 2+ protein, moderate blood, large leukocytes, WBC 148 Urine Culture: pending Treatment: Antibiotics: IV Ampicillin IV fluids Please document the condition that these clinical indicators signify, whether Present on Admission, and cause if known: UTI associated with catheter UTI not associated to catheter Contaminated specimen Unable to determine Other Please document in your progress notes and discharge summary in order to capture severity of illness and risk of mortality. Include clinical findings that support your diagnosis. FYI: Press F11 to launch patient chart. Place X here if this finding has no clinical significance, is not applicable or if you are not able to provide any additional documentation. KIRSTIND
== END 2016-10-18 19:49 | DRG 291 ==
LOC: EC 20:13 → 4MS4W 10-14 03:32
PROVIDERS: ADMIT Family Medicine; ATTEND Family Medicine
PROC: 5A1D00Z (ICD-10-PCS; principal; 2016-10-18)
DX: I13.2 Hypertensive heart and chronic kidney disease with heart failure and with stage 5 chronic kidney disease, or end stage renal disease (principal); N18.6 End stage renal disease; N17.9 Acute kidney failure, unspecified; E46 Unspecified protein-calorie malnutrition; I95.89 Other hypotension; R64 Cachexia; E11.22 Type 2 diabetes mellitus with diabetic chronic kidney disease; I42.9 Cardiomyopathy, unspecified; I48.91 Unspecified atrial fibrillation; N39.0 Urinary tract infection, site not specified; I50.22 Chronic systolic (congestive) heart failure; B95.2 Enterococcus as the cause of diseases classified elsewhere; D63.1 Anemia in chronic kidney disease; Z79.01 Long term (current) use of anticoagulants; Z79.4 Long term (current) use of insulin; Z95.810 Presence of automatic (implantable) cardiac defibrillator; Z99.2 Dependence on renal dialysis; R33.9 Retention of urine, unspecified
CPT/HCPCS: 36415; 71010; 80048; 80053; 81001; 83036; 83605; 84484; 85025; 85027; 85379; 85610; 85730; 87040; 87077; 87086; 87186; 90935; 94640; 96365; 96375; 96376; 99285

== ENCOUNTER 2016-11-13 15:17 | Inpatient (IN) | payer MEDICARE, BC ==
[2016-11-13] MEDS ORDERED: ACETAMINOPHEN TAB 500 MG TAB PO STA (16:17)
[2016-11-13] MEDS ORDERED: VANCOMYCIN 1,000 MG in SODIUM CHLORIDE 0.9% 250 ML IVPB STA (16:27)
[2016-11-13] MEDS ORDERED: PIPERACILLIN-TAZOBACTAM 3.375 GM in DEXTROSE/WATER 1 50ML.BAG IVPB STA (16:28)
[2016-11-13] MEDS ORDERED: IV VANCOMYCIN PER PHARMACY 1 EACH MISC MISCELLANE PRN (16:36)
[2016-11-13 17:44] LABS: Anisocytosis Slight; CH 30.6; CHCM 32.1; HCT 30.8 % (39.0-53.0); HDW 3.11; Hypochromasia Slight; MCH 30.4 pg (25.0-35.0); MCHC 31.7 g/dL (31.0-37.0); Macrocytosis Slight; Mean Platelet Volume 7.5; RBC 3.21 m/uL (4.30-5.90); RDW 17.3 % (11.5-15.5); WBC (Perox) 31.53
[2016-11-13 17:49] LABS: INR 1.3 (<1.1); Partial Thromboplastin Time 22.1 sec (22.0-30.0); Prothrombin Time 12.6 sec (9.0-12.0)
[2016-11-13 17:50] LABS: Calcium 8.7 mg/dL (8.4-10.2); HGB 9.8 gm/dL (13.0-17.5); Total Protein 6.9 g/dL (6.3-8.2); WBC 31.4 k/uL (3.8-10.6)
[2016-11-13 17:54] LABS: Creatine Kinase MB 1.6 ng/mL (0.0-2.4)
[2016-11-13 18:21] LABS: Add Differential Manual Differential
[2016-11-13 18:25] LABS: Nucleated Red Blood Cells 0 /100 WBC (0-0); Total Cells Counted 200
[2016-11-13 18:26] LABS: Manual Review Performed; Polychromasia Present
--- NOTE | 2016-11-13 18:28 | ED ---
General Adult HPI - General Chief complaint: Recheck/Abnormal Lab/Rx Stated complaint: Antibiotic Therapy Time Seen by Provider: 11/13/16 15:37 Source: patient, family Mode of arrival: wheelchair Limitations: no limitations - History of Present Illness Initial comments: 81 years old male was sent in from dialysis facility and they noticed that he was running a fever he had blood cultures done on now November 11 blood cultures grew gram-negative bacilli and it Grew Klebsiella oxytocin arrival he was quite tired look pale eye and no specific complaints sort of vague historian feels tired and denies any headaches no neck stiffness or chest pain or shortness of breath no abdominal pain no frequency urgency dysuria, his multiple ruled out that he has a skin break or ulcer a decubitus on oxygen region. System is negative otherwise - Related Data Home Medications Medication Instructions Recorded Confirmed Insulin Detemir [Levemir Flextouch] 6 units SQ DAILY@0700 09/03/14 11/13/16 Lovastatin [Mevacor] 40 mg PO HS@2100 09/03/14 11/13/16 Apixaban [Eliquis] 2.5 mg PO BID@0800,1700 01/18/16 11/13/16 Isosorbide Dinitrate [Isordil] 10 mg PO BID@0800,17001/18/16 11/13/16 Rivastigmine Tartrate 1.5 mg PO BID@0800,1700 01/18/16 11/13/16 [Rivastigmine] Furosemide [Lasix] 40 mg PO DAILY@0600 08/15/16 11/13/16 Acetaminophen Tab [Tylenol] 650 mg PO Q4H PRN 09/16/16 11/13/16 Amiodarone [Cordarone] 200 mg PO BID@0800,1700 09/16/16 11/13/16 Docusate [Colace] 100 mg PO BID@0800,17009/16/16 11/13/16 Megestrol [Megace] 400 mg PO DAILY@0800 09/16/16 11/13/16 Metoprolol Succinate (ER) [Toprol 50 mg PO DAILY@1700 09/16/16 11/13/16 XL] Midodrine [ProAmatine] 5 mg PO TID@0600,1400,2100 09/16/16 11/13/16 Pantoprazole [Protonix] 40 mg PO DAILY@0600 09/16/16 11/13/16 B Complex & C No.20/Folic Acid 1 mg PO HS 10/03/16 11/13/16 [Nephrocaps Softgel] Bisacodyl [Dulcolax] 10 mg RECTAL DAILY PRN 10/03/16 11/13/16 Dorzolamide 2% [Trusopt 2%] 1 drops BOTH EYES BID@0800,1700 10/03/16 11/13/16 Insulin Aspart [NovoLOG Flexpen] See Protocol SQ TID 10/03/16 11/13/16 Tamsulosin [Flomax] 0.4 mg PO DAILY 11/13/16 11/13/16 Previous Rx's Medication Instructions Recorded Ipratropium-Albuterol Nebulize 3 ml INHALATION RT-QID PRN #0 10/09/16 [Duoneb 0.5 mg-3 mg/3 ml Soln] ampul.neb Allergies Allergy/AdvReac Type Severity Reaction Status Date / Time fish oil Allergy Unknown Verified 11/13/16 15:57 Iodinated Contrast Media - Allergy Rash/Hives Verified 11/13/16 15:57 Oral and [Iodinated Contrast Media - IV Dye] shellfish derived Allergy Rash/Hives Verified 11/13/16 15:57 warfarin sodium Allergy Unknown Verified 11/13/16 15:57 [From Coumadin] Review of Systems ROS Statement: Those systems with pertinent positive or pertinent negative responses have been documented in the HPI. ROS Other: All systems not noted in ROS Statement are negative. Past Medical History Past Medical History: Atrial Fibrillation, Heart Failure, Diabetes Mellitus, Hypertension, Renal Disease, Skin Disorder Additional Past Medical History / Comment(s): Pt recently admitted to [facility] on 04/21 with pneumonia/ influenza B. He was also started on dialysis at that time per his spouse. He was discharged to [facility] for rehab. Other Hx: Hemodialysis Tue//Sat, chronic mujica lately, cardiomyopathy, R elbow and coccyx wounds currently, IDDM type II, spouse denies pt ever having HTN, bronchitis, bronchospasms, skin cancer with removal. History of Any Multi-Drug Resistant Organisms: None Reported Past Surgical History: AICD, Cholecystectomy, Hernia Repair Additional Past Surgical History / Comment(s): defibrillator, cataracts removed , skin CA removed from face, colonoscopy, L inguinal hernia repair. Past Anesthesia/Blood Transfusion Reactions: No Reported Reaction Type of Cardiac Device: AICD Device Placement Date:: 07-28-11 Past Psychological History: No Psychological Hx Reported Additional Psychological History / Comment(s): Pt is now at [facility] for rehab. Spouse states yesterday, pt walked 160 feet with a walker before becoming ill. Smoking Status: Never smoker Past Alcohol Use History: None Reported Past Drug Use History: None Reported - Past Family History Mother History Unknown: Yes Additional Family Medical History / Comment(s): Pt does not know parents history -he was raised in foster care. Son(s) Family Medical History: AFIB Additional Family Medical History / Comment(s): son had heart transplant General Exam - General Exam Comments Initial Comments: General: The patient is laying in the bed quiet, he does open his eyes to verbal commands his GCS is 15. Does look tired Skin: Skin is warm and dry and no rashes or lesions are noted. Eye: Pupils are equal, round and reactive to light, extra-ocular movements are intact; there is normal conjunctiva bilaterally. Ears, nose, mouth and throat: There are moist mucous membranes and no oral lesions. Neck: The neck is supple, there is no tenderness or JVD. Number no signs of meningeal meningeal irritatation Cardiovascular: There is a regular rate and rhythm. No murmur, rub or gallop is appreciated. Respiratory: To auscultation bilateral, decreased breath sounds and crackles at the bases Gastrointestinal: Soft, non-distended, non-tender abdomen without masses or organomegaly noted. There is no rebound or guarding present. Bowel sounds are unremarkable. Back: There is no tenderness to palpation in the midline. There is no obvious deformity. Musculoskeletal: Normal ROM, no tenderness, There is no pedal edema. There is no calf tenderness or swelling. No cords were appreciated. Neurological: CN II-XII intact, Cranial nerves III through XII are intact. There are no obvious motor or sensory deficits. Coordination appears grossly intact. Speech is normal. Psychiatric: Cooperative, appropriate mood & affect, normal judgment. Limitations: no limitations Course Vital Signs 11/13/16 15:19 Temperature 98.6 F Pulse Rate 119 H Respiratory 20 Rate Blood Pressure 94/51 O2 Sat by Pulse 98 Oximetry Since her labs are reviewed, discussed with the patient his and now with the Dr. Farah earlier have discussed with the Dr. Bermudez his white count is greater than 30,000 his potassium is on the lower side he will be started on it has the same 2.25 g now ankle 1 g now and I did speak with the pharmacist as well they were just the dose as needed he has a very small decubitus ulcer on the coccygeal area was cultured his differential diagnosis includes fever, sepsis, mild congestive heart failure mom, high hypokalemia may be admitted to ICU and a Dr. Ibrahim intensivists has been paged Medical Decision Making - Lab Data Result diagrams: 11/13/16 17:16 11/13/16 17:16 Lab Results 11/13/16 11/13/16 11/13/16 Range/Units 17:16 17:16 17:16 WBC 31.4 H* (3.8-10.6) k/uL RBC 3.21 L (4.30-5.90) m/uL Hgb 9.8 L D (13.0-17.5) gm/dL Hct 30.8 L (39.0-53.0) % MCV 96.0 (80.0-100.0) fL MCH 30.4 (25.0-35.0) pg MCHC 31.7 (31.0-37.0) g/dL RDW 17.3 H (11.5-15.5) % Plt Count 185 (150-450) k/uL Neutrophils % (Manual) 91.0 % Band Neutrophils % 5.0 % Lymphocytes % (Manual) 2.5 % Monocytes % (Manual) 1.5 % Neutrophils # (Manual) 30.1 H (1.3-7.7) k/uL Lymphocytes # (Manual) 0.8 L (1.0-4.8) k/uL Monocytes # (Manual) 0.5 (0-1.0) k/uL Nucleated RBCs 0 (0-0) /100 WBC Manual Slide Review Performed Polychromasia Present Hypochromasia Slight Anisocytosis Slight Anisocytosis (manual) Present Macrocytosis Slight PT (9.0-12.0) sec INR (<1.1) APTT (22.0-30.0) sec Sodium 135 L (137-145) mmol/L Potassium 3.0 L* (3.5-5.1) mmol/L Chloride 95 L (98-107) mmol/L Carbon Dioxide 29 (22-30) mmol/L Anion Gap 11 mmol/L BUN 16 (9-20) mg/dL Creatinine 1.46 H (0.66-1.25) mg/dL Est GFR (MDRD) Af Amer 56 (>60 ml/min/1.73 sqM) Est GFR (MDRD) Non-Af 46 (>60 ml/min/1.73 sqM) Glucose 127 H (74-99) mg/dL Plasma Lactic Acid Chase (0.7-2.0) mmol/L Calcium 8.7 (8.4-10.2) mg/dL Total Bilirubin 2.0 H (0.2-1.3) mg/dL AST 23 (17-59) U/L ALT 26 (21-72) U/L Alkaline Phosphatase 291 H (38-126) U/L Total Creatine Kinase 22 L (55-170) U/L CK-MB (CK-2) 1.6 (0.0-2.4) ng/mL CK-MB (CK-2) Rel Index 7.3 Total Protein 6.9 (6.3-8.2) g/dL Albumin 3.2 L (3.5-5.0) g/dL 11/13/16 11/13/16 Range/Units 17:16 17:16 WBC (3.8-10.6) k/uL RBC (4.30-5.90) m/uL Hgb (13.0-17.5) gm/dL Hct (39.0-53.0) % MCV (80.0-100.0) fL MCH (25.0-35.0) pg MCHC (31.0-37.0) g/dL RDW (11.5-15.5) % Plt Count (150-450) k/uL Neutrophils % (Manual) % Band Neutrophils % % Lymphocytes % (Manual) % Monocytes % (Manual) % Neutrophils # (Manual) (1.3-7.7) k/uL Lymphocytes # (Manual) (1.0-4.8) k/uL Monocytes # (Manual) (0-1.0) k/uL Nucleated RBCs (0-0) /100 WBC Manual Slide Review Polychromasia Hypochromasia Anisocytosis Anisocytosis (manual) Macrocytosis PT 12.6 H (9.0-12.0) sec INR 1.3 (<1.1) APTT 22.1 (22.0-30.0) sec Sodium (137-145) mmol/L Potassium (3.5-5.1) mmol/L Chloride (98-107) mmol/L Carbon Dioxide (22-30) mmol/L Anion Gap mmol/L BUN (9-20) mg/dL Creatinine (0.66-1.25) mg/dL Est GFR (MDRD) Af Amer (>60 ml/min/1.73 sqM) Est GFR (MDRD) Non-Af (>60 ml/min/1.73 sqM) Glucose (74-99) mg/dL Plasma Lactic Acid Chase 2.3 H* (0.7-2.0) mmol/L Calcium (8.4-10.2) mg/dL Total Bilirubin (0.2-1.3) mg/dL AST (17-59) U/L ALT (21-72) U/L Alkaline Phosphatase (38-126) U/L Total Creatine Kinase (55-170) U/L CK-MB (CK-2) (0.0-2.4) ng/mL CK-MB (CK-2) Rel Index Total Protein (6.3-8.2) g/dL Albumin (3.5-5.0) g/dL Disposition Clinical Impression: Sepsis, Congestive heart failure, Fever, Hypokalemia Disposition: ADMITTED IP TO THIS HOSP Condition: Serious - Out of Hospital Transfer - Req. Specs Out of Hospital Transfer - Requested Specifics: Adult ICU
--- NOTE | 2016-11-13 18:28 | XR ---
EXAMINATION TYPE: XR chest 2V DATE OF EXAM: 11/13/2016 6:11 PM COMPARISON: Yesterday HISTORY: Fever TECHNIQUE: Frontal and lateral views of the chest are obtained. FINDINGS: Heart is enlarged. There is mild pulmonary congestion. There is slight blunting of right c ostophrenic angle. There is a dual-lumen right central venous catheter with tip in superior vena cava . There is left axillary pacemaker with the lead tip in the right ventricle. There are no hilar ramon s. Bony thorax is intact. IMPRESSION: Small right pleural effusion. Possible mild heart failure. Chest is probably improved sl ightly compared to yesterday.
[2016-11-13] MEDS ORDERED: NALOXONE 0.4 MG/ML 1 ML VIAL IV PRN (18:36)
[2016-11-13] MEDS ORDERED: ACETAMINOPHEN SUPPOSITORY 650 MG SUPP RECTAL PRN (18:36)
[2016-11-13] MEDS ORDERED: BISACODYL 10 MG SUPP RECTAL PRN (18:51)
[2016-11-13] MEDS ORDERED: IPRATROPIUM-ALBUTEROL 3 ML NEB INHALATION PRN (18:51)
[2016-11-13 19:15] LABS: Appearance,Urine Turbid (Clear); Bacteria,Urine Moderate /hpf; Bilirubin,Urine 1+ (Negative); Glucose,Urine (UA) Negative (Negative); Ketones,Urine Negative (Negative); Leukocyte Esterase,Urine Large (Negative); Nitrite,Urine Negative (Negative); PH, Urine 5.5 (5.0-8.0); Particle Count 37227; Protein,Urine 2+ (Negative); RBC,Urine 16 /hpf (0-5); Specific Gravity,Urine 1.017 (1.001-1.035); UA Billing (MACRO vs. MICRO) MICRO; WBC,Urine >182 /hpf (0-5)
[2016-11-13] MEDS ORDERED: POTASSIUM CHLORIDE ORAL LIQUID 40 MEQ/30 ML CUP PO ONE (20:00)
[2016-11-13 20:12] LABS: Glucose,Whole Blood 187 mg/dL (75-99)
[2016-11-13] MEDS ORDERED: Potassium Replacement Protocol 1 EACH MISC MISCELLANE PRN (21:49)
[2016-11-13] MEDS: ATORVASTATIN 10 MG TAB PO SCH (21:58)
[2016-11-13] MEDS: MIDODRINE 5 MG TAB PO SCH (21:59)
[2016-11-13] MEDS: FOLIC ACID-VIT B COMPLEX-VIT C 1 CAP PO SCH (21:59)
[2016-11-13] MEDS: HYDROcodone/APAP 5-325MG 1 EACH TAB PO PRN (22:00)
[2016-11-13] MEDS ORDERED: POTASSIUM CHLORIDE ER 20 MEQ TAB.ER PO SCH (22:00)
[2016-11-14] MEDS: HYDROcodone/APAP 5-325MG 1 EACH TAB PO PRN ×2 (02:07→05:41)
[2016-11-14] MEDS ORDERED: SODIUM CHLORIDE 0.9% 1,000 ML IV SCH (02:30)
[2016-11-14 05:21] LABS: Anisocytosis Slight; Basophils % (A) 0 %; CH 29.8; Eosinophils % (A) 0 %; HCT 31.3 % (39.0-53.0); HDW 2.79; HGB 9.3 gm/dL (13.0-17.5); Hypochromasia Marked; Luc # (Auto) 0.16; Luc % (Auto) 1; Lymphocytes # (A) 1.4 k/uL (1.0-4.8); Lymphocytes % (A) 6 %; MCH 29.9 pg (25.0-35.0); MCHC 29.8 g/dL (31.0-37.0); MCV 100.3 fL (80.0-100.0); Macrocytosis Slight; Monocytes # (A) 0.6 k/uL (0-1.0); Monocytes % (A) 3 %; Neutrophils # (A) 21.4 k/uL (1.3-7.7); Neutrophils % (A) 91 %; RBC 3.12 m/uL (4.30-5.90); RDW 16.6 % (11.5-15.5); WBC 23.6 k/uL (3.8-10.6)
[2016-11-14 05:24] LABS: Calcium 8.4 mg/dL (8.4-10.2); Potassium 4.5 mmol/L (3.5-5.1); Total Bilirubin 2.4 mg/dL (0.2-1.3); Total Protein 6.5 g/dL (6.3-8.2)
[2016-11-14] MEDS: SODIUM CHLORIDE 0.9% 1,000 ML IV SCH (05:37)
[2016-11-14] MEDS: SODIUM CHLORIDE 0.9% 200 ML IV SCH ×3 (05:38→09:36)
[2016-11-14] MEDS: PANTOPRAZOLE 40 MG TABLET PO SCH (05:41)
[2016-11-14] MEDS: FUROSEMIDE 40 MG TAB PO SCH (05:41)
[2016-11-14] MEDS: MIDODRINE 5 MG TAB PO SCH ×3 (05:41→21:15)
--- NOTE | 2016-11-14 07:26 | XR ---
EXAMINATION TYPE: XR chest 1V DATE OF EXAM: 11/14/2016 6:59 AM HISTORY: Shortness of breath. COMPARISON: 11/13/2016 TECHNIQUE: Single view of the chest is submitted. FINDINGS: Demonstrated are scattered senescent parenchymal change. There is no evidence for focal infiltrate. The heart is enlarged without evidence for CHF at this time. Hilar and mediastinal structures are within normal limits. Degenerative changes are seen of the dorsal spine. IMPRESSION: 1. Chronic changes without evidence for acute pulmonary disease.
--- NOTE | 2016-11-14 08:23 | P.HPIM ---
History of Present Illness H&P Date: 11/14/16 Chief Complaint: Fever and weakness. This is a history of physical and 81-year-old white male essentially admitted for significant weakness and fever. Evaluation did show significant sepsis. He has been relying history of end-stage renal disease and cardiorenal type syndrome. Underlying atrial fibrillation is otherwise noted. No significant chest pain but he is lucid today. No new voiding difficulties otherwise stated. He is admitted to ICU secondary to his multiple comorbidities. Review of Systems Constitutional: Denies chills, Denies fever Eyes: denies blurred vision, denies pain Ears, nose, mouth and throat: Denies headache, Denies sore throat Cardiovascular: Denies chest pain, Denies shortness of breath Respiratory: Denies cough Gastrointestinal: Denies abdominal pain, Denies diarrhea, Denies nausea, Denies vomiting Musculoskeletal: Denies myalgias Integumentary: Denies pruritus, Denies rash Neurological: Denies numbness, Denies weakness Past Medical History Past Medical History: Atrial Fibrillation, Cancer, Heart Failure, Diabetes Mellitus, Hyperlipidemia, Hypertension, Pneumonia, Renal Disease, Skin Disorder Additional Past Medical History / Comment(s): 08/15/16 pneumonia/ influenza B. He was also started on dialysis at that time per his spouse.10/14/16 UTI- WENT TO [facility] FOR REHAB JUST WENT HOME 11-05-16 Other Hx: Hemodialysis e// Sat, , cardiomyopathy, coccyx wounds currently-dsng, IDDM type II, spouse denies pt ever having HTN, bronchitis, bronchospasms, skin cancer with removal.pancreatitis History of Any Multi-Drug Resistant Organisms: None Reported Past Surgical History: AICD, Cholecystectomy, Hernia Repair Additional Past Surgical History / Comment(s): defibrillator, cataracts removed , skin CA removed from face, colonoscopy, L inguinal hernia repair. Past Anesthesia/Blood Transfusion Reactions: No Reported Reaction Type of Cardiac Device: AICD Device Placement Date:: 07-28-11 Past Psychological History: No Psychological Hx Reported Additional Psychological History / Comment(s): Pt came home from [facility] on -lives withhis of 54 years(melanie).uses a walker when up,also has a w/c, walker w/seat,shower chair. recieving services from [facility] care nurse, pt/ ot. Spouse states yesterday. Smoking Status: Never smoker Past Alcohol Use History: None Reported Past Drug Use History: None Reported - Past Family History Mother History Unknown: Yes Additional Family Medical History / Comment(s): Pt does not know parents history -he was raised in foster care. Son(s) Family Medical History: AFIB Additional Family Medical History / Comment(s): son had heart transplant Medications and Allergies Home Medications Medication Instructions Recorded Confirmed Type Insulin Detemir [Levemir Flextouch] 6 units SQ DAILY@0700 09/03/14 11/13/16 History Lovastatin [Mevacor] 40 mg PO HS@2100 09/03/14 11/13/16 History Apixaban [Eliquis] 2.5 mg PO BID@0800,1700 01/18/16 11/13/16 History Isosorbide Dinitrate [Isordil] 10 mg PO BID@0800,1700 01/18/16 11/13/16 History Rivastigmine Tartrate 1.5 mg PO BID@0800,1700 01/18/16 11/13/16 History [Rivastigmine] Furosemide [Lasix] 40 mg PO DAILY@0600 08/15/16 11/13/16 History Acetaminophen Tab [Tylenol] 650 mg PO Q4H PRN 09/16/16 11/13/16 History Amiodarone [Cordarone] 200 mg PO BID@0800,1700 09/16/16 11/13/16 History Docusate [Colace] 100 mg PO BID@0800,1700 09/16/16 11/13/16 History Megestrol [Megace] 400 mg PO DAILY@0800 09/16/16 11/13/16 History Metoprolol Succinate (ER) [Toprol 50 mg PO DAILY@1700 09/16/16 11/13/16 History XL] Midodrine [ProAmatine] 5 mg PO TID@0600,1400,2100 09/16/16 11/13/16 History Pantoprazole [Protonix] 40 mg PO DAILY@0600 09/16/16 11/13/16 History B Complex & C No.20/Folic Acid 1 mg PO HS 10/03/16 11/13/16 History [Nephrocaps Softgel] Bisacodyl [Dulcolax] 10 mg RECTAL DAILY PRN 10/03/16 11/13/16 History Dorzolamide 2% [Trusopt 2%] 1 drops BOTH EYES BID@0800,1700 10/03/16 11/13/16 History Insulin Aspart [NovoLOG Flexpen] See Protocol SQ TID 10/03/16 11/13/16 History Tamsulosin [Flomax] 0.4 mg PO DAILY 11/13/16 11/13/16 History Allergies Allergy/AdvReac Type Severity Reaction Status Date / Time fish oil Allergy Unknown Verified 11/13/16 15:57 Iodinated Contrast Media - Allergy Rash/Hives Verified 11/13/16 15:57 Oral and [Iodinated Contrast Media - IV Dye] shellfish derived Allergy Rash/Hives Verified 11/13/16 15:57 warfarin sodium Allergy Unknown Verified 11/13/16 15:57 [From Coumadin] Physical Exam Vitals: Vital Signs Temp Pulse Resp BP Pulse Ox 11/14/16 08:00 103 H 43 H 86/65 95 11/14/16 07:30 99 33 H 86/65 100 11/14/16 07:00 107 H 15 100 11/14/16 06:30 98 11 L 86/65 100 11/14/16 06:00 109 H 35 H 71/55 100 11/14/16 05:30 94 33 H 71/55 100 11/14/16 05:00 92 23 73/59 100 11/14/16 04:30 98 32 H 73/59 100 11/14/16 04:00 97.8 F 116 H 32 H 81/67 100 11/14/16 03:30 104 H 33 H 81/67 100 11/14/16 03:00 110 H 21 76/58 100 11/14/16 02:30 101 H 20 76/58 100 11/14/16 02:00 102 H 35 H 71/50 100 11/14/16 01:30 108 H 25 H 71/50 100 11/14/16 01:00 118 H 30 H 64/46 100 11/14/16 00:30 100 0 L 64/46 100 11/14/16 00:00 97.6 F 96 16 82/62 100 11/13/16 23:30 102 H 82/62 99 11/13/16 23:00 115 H 18 82/63 100 11/13/16 22:30 113 H 82/63 99 11/13/16 22:15 104 H 82/63 100 11/13/16 22:00 109 H 82/63 100 11/13/16 21:30 116 H 78/58 100 11/13/16 21:00 97.6 F 102 H 24 78/58 100 11/13/16 20:30 101 H 70/53 100 11/13/16 20:00 123 H 73/57 93 L 11/13/16 19:58 120 H 11/13/16 19:25 97.4 F L 65 22 79/58 97 Intake and Output 11/13/16 11/14/16 11/14/16 22:59 06:59 14:59 Intake Total 250 690 50 Output Total 2 3 Balance 248 687 50 Intake: IV 250 250 50 Sodium Chloride 0.9% 1, 100 000 ml @ 20 mls/hr IV . Q24H [facility] Rx#:[id number] Sodium Chloride 0.9% 1, 150 50 000 ml @ 50 mls/hr IV . Q20H [facility] Rx#:[id number] Vancomycin 1,000 mg In 250 Sodium Chloride 0.9% 250 ml @ 125 mls/hr IVPB ONCE STA Rx#:[id number] Intake, IV Titration 200 Amount Sodium Chloride 0.9% 200 200 ml @ 100 mls/hr IV .Q2H [facility] Rx#:[id number] Oral 240 Output: Stool 2 3 Other: Voiding Method Urinal Urinal Weight 51.71 kg 51.7 kg - Constitutional General appearance: thin - EENT Eyes: no abnormal pupil - Neck Neck: no lymphadenopathy - Cardiovascular Rhythm: irregularly irregular Heart sounds: normal: S1, S2 - Gastrointestinal General gastrointestinal: soft, no tenderness - Musculoskeletal Musculoskeletal: generalized weakness - Psychiatric Psychiatric: appropriate affect, intact judgment & insight Results CBC & Chem 7: 11/14/16 04:31 11/14/16 04:31 Labs: Abnormal Lab Results - Last 24 Hours (Table) 11/13/16 11/14/16 11/14/16 Range/Units 20:10 00:55 04:31 WBC (3.8-10.6) k/uL RBC (4.30-5.90) m/uL Hgb (13.0-17.5) gm/dL Hct (39.0-53.0) % MCV (80.0-100.0) fL MCHC (31.0-37.0) g/dL RDW (11.5-15.5) % Plt Count (150-450) k/uL Neutrophils # (1.3-7.7) k/uL BUN 23 H (9-20) mg/dL Creatinine 2.04 H (0.66-1.25) mg/dL Glucose 192 H (74-99) mg/dL POC Glucose (mg/dL) 187 H (75-99) mg/dL Plasma Lactic Acid Chase 2.2 H* (0.7-2.0) mmol/L Total Bilirubin 2.4 H (0.2-1.3) mg/dL Alkaline Phosphatase 262 H (38-126) U/L Albumin 3.0 L (3.5-5.0) g/dL 11/14/16 Range/Units 04:31 WBC 23.6 H (3.8-10.6) k/uL RBC 3.12 L (4.30-5.90) m/uL Hgb 9.3 L (13.0-17.5) gm/dL Hct 31.3 L (39.0-53.0) % MCV 100.3 H (80.0-100.0) fL MCHC 29.8 L (31.0-37.0) g/dL RDW 16.6 H (11.5-15.5) % Plt Count 143 L (150-450) k/uL Neutrophils # 21.4 H (1.3-7.7) k/uL BUN (9-20) mg/dL Creatinine (0.66-1.25) mg/dL Glucose (74-99) mg/dL POC Glucose (mg/dL) (75-99) mg/dL Plasma Lactic Acid Chase (0.7-2.0) mmol/L Total Bilirubin (0.2-1.3) mg/dL Alkaline Phosphatase (38-126) U/L Albumin (3.5-5.0) g/dL Thrombosis Risk Factor Assmnt - Choose All That Apply Any of the Below Risk Factors Present?: Yes Each Factor Represents 1 point: Sepsis (< 1month), Swollen legs (current) Other Risk Factors: Yes Each Risk Factor Represents 2 Points: Malignancy Each Risk Factor Represents 3 Points: Age 75 years or older Other congenital or acquired thrombophilia - If yes, enter type in comment: No Thrombosis Risk Factor Assessment Total Risk Factor Score: 7 Thrombosis Risk Factor Assessment Level: High Risk Assessment and Plan (1) Sepsis Status: Acute (2) AICD (automatic cardioverter/defibrillator) present Status: Acute (3) Anemia Status: Acute (4) Atrial fibrillation with rapid ventricular response Status: Acute (5) Cardiomyopathy, nonischemic Status: Acute (6) Chronic renal failure Status: Acute (7) High risk for readmission Status: Acute Plan: Gingerly start appropriate IV hydration. Consult appropriate ID and nephrology. Prognosis is guarded secondary to multiple comorbidities. Appreciate consultants input. Check CBC, CMP in the a.m. Dr. Obrien's group covering for the weekend. Time with Patient: Greater than 30
[2016-11-14] MEDS: INSULIN LISPRO (humaLOG) 300 UNIT/3 ML VIAL SQ SCH ×4 (09:14→21:14)
[2016-11-14] MEDS: AMIODARONE 200 MG TAB PO SCH ×2 (09:15→17:49)
[2016-11-14] MEDS: APIXABAN 2.5 MG TABLET PO SCH ×2 (09:15→17:49)
[2016-11-14 09:16] LABS: Glucose,Whole Blood 181 mg/dL (75-99)
[2016-11-14] MEDS: ISOSORBIDE DINITRATE 10 MG TAB PO SCH ×2 (09:16→17:50)
[2016-11-14] MEDS: DORZOLAMIDE HCL 2% DROPS 10 ML BTL BOTH EYES SCH ×2 (09:17→17:49)
[2016-11-14] MEDS: TAMSULOSIN 0.4 MG CAP.ER.24H PO SCH (09:17)
[2016-11-14] MEDS: MEGESTROL 400 MG/10 ML CUP PO SCH (09:17)
--- NOTE | 2016-11-14 09:21 | P.CONS ---
History of Present Illness - Reason for Consult Consult date: 11/14/16 Sepsis - History of Present Illness This is an 81-year-old male. He had a hospitalization in August 2016 for acute kidney injury and was started on hemodialysis Thursday, , Thursday. He was seen on that hospitalization by Dr. Mc from infectious disease for Pseudomonas tracheobronchitis or pneumonia. His most recent hospitalization from October 14 through October 18 which time he was treated for urinary tract infection with enterococcus for which patient was treated on ampicillin and was discharged on 7 days as well as Clarke catheter in place. Patient went to [facility] and was discharged from there on November 05. Patient states he was doing well and using a walker and gaining his strength back. He has been following with hemodialysis center and they had noted that he had a fever and blood cultures were obtained on 11/11 which Klebsiella oxytoca, sensitivity not available. Patient was sent into [facility] emergency [facility] for evaluation and found to be tachycardic, hypotensive with leukocytosis initially of 31.4 area and platelet count 143 and he does have history of mild thrombocytopenia. Hemoglobin is 9.3. BUN 23 and creatinine 2.04. Albumin 3. Urinalysis was turbid, leukoesterase large, blood moderate, WBCs greater than 182. Bacteria moderate. 2 blood cultures have status received. Urine culture is in process. There are consult in place for Dr. Ibrahim for intensive care management and nephrology. Chest x-ray is showing no acute pulmonary disease. Patient is also known to have a decubitus ulcer to the coccyx stage II. Patient had Clarke catheter removed on November 05. His most recent urine culture on October 14 positive for Enterococcus faecalis (not VRE) and Monet. Patient also has significant history of chronic atrial fibrillation on amiodarone and eliquis as well as chronic systolic heart failure and nonischemic cardiomyopathy with AICD. Review of Systems All systems: negative Constitutional: Reports chills, Reports fever, Reports weakness Eyes: denies blurred vision, denies pain Ears, nose, mouth and throat: Denies dental pain, Denies headache, Denies mouth pain, Denies sore throat Cardiovascular: Reports dyspnea on exertion, Reports leg edema, Reports shortness of breath, Denies chest pain, Denies edema, Denies lightheadedness, Denies syncope Respiratory: Denies cough, Denies home oxygen Gastrointestinal: Denies abdominal pain, Denies diarrhea, Denies nausea, Denies vomiting Musculoskeletal: Denies myalgias Integumentary: Denies pruritus, Denies rash Neurological: Denies numbness, Denies weakness Psychiatric: Denies anxiety, Denies depression Endocrine: Denies fatigue, Denies weight change Past Medical History Past Medical History: Atrial Fibrillation, Cancer, Heart Failure, Diabetes Mellitus, Hyperlipidemia, Hypertension, Pneumonia, Renal Disease, Skin Disorder Additional Past Medical History / Comment(s): 08/15/16 pneumonia/ influenza B. He was also started on dialysis at that time per his spouse.10/14/16 UTI- WENT TO [facility] JUST WENT HOME 11-05-16 Other Hx: Hemodialysis Tue// Sat, , cardiomyopathy, coccyx wounds currently-dsng, IDDM type II, spouse denies pt ever having HTN, bronchitis, bronchospasms, skin cancer with removal.pancreatitis History of Any Multi-Drug Resistant Organisms: None Reported Past Surgical History: AICD, Cholecystectomy, Hernia Repair Additional Past Surgical History / Comment(s): defibrillator, cataracts removed , skin CA removed from face, colonoscopy, L inguinal hernia repair. Past Anesthesia/Blood Transfusion Reactions: No Reported Reaction Type of Cardiac Device: AICD Device Placement Date:: 07-28-11 Past Psychological History: No Psychological Hx Reported Additional Psychological History / Comment(s): Pt came home from [facility] on -lives withhis of 54 years(melanie).uses a walker when up,also has a w/c, walker w/seat,shower chair. recieving services from [facility] nurse, pt/ ot. Spouse states yesterday. Smoking Status: Never smoker Past Alcohol Use History: None Reported Past Drug Use History: None Reported - Past Family History Mother History Unknown: Yes Additional Family Medical History / Comment(s): Pt does not know parents history -he was raised in foster care. Son(s) Family Medical History: AFIB Additional Family Medical History / Comment(s): son had heart transplant Medications and Allergies Home Medications Medication Instructions Recorded Confirmed Type Insulin Detemir [Levemir Flextouch] 6 units SQ DAILY@0700 09/03/14 11/13/16 History Lovastatin [Mevacor] 40 mg PO HS@2100 09/03/14 11/13/16 History Apixaban [Eliquis] 2.5 mg PO BID@0800,1700 01/18/16 11/13/16 History Isosorbide Dinitrate [Isordil] 10 mg PO BID@0800,1700 01/18/16 11/13/16 History Rivastigmine Tartrate 1.5 mg PO BID@0800,1700 01/18/16 11/13/16 History [Rivastigmine] Furosemide [Lasix] 40 mg PO DAILY@0600 08/15/16 11/13/16 History Acetaminophen Tab [Tylenol] 650 mg PO Q4H PRN 09/16/16 11/13/16 History Amiodarone [Cordarone] 200 mg PO BID@0800,1700 09/16/16 11/13/16 History Docusate [Colace] 100 mg PO BID@0800,1700 09/16/16 11/13/16 History Megestrol [Megace] 400 mg PO DAILY@0800 09/16/16 11/13/16 History Metoprolol Succinate (ER) [Toprol 50 mg PO DAILY@1700 09/16/16 11/13/16 History XL] Midodrine [ProAmatine] 5 mg PO TID@0600,1400,2100 09/16/16 11/13/16 History Pantoprazole [Protonix] 40 mg PO DAILY@0600 09/16/16 11/13/16 History B Complex & C No.20/Folic Acid 1 mg PO HS 10/03/16 11/13/16 History [Nephrocaps Softgel] Bisacodyl [Dulcolax] 10 mg RECTAL DAILY PRN 10/03/16 11/13/16 History Dorzolamide 2% [Trusopt 2%] 1 drops BOTH EYES BID@0800,1700 10/03/16 11/13/16 History Insulin Aspart [NovoLOG Flexpen] See Protocol SQ TID 10/03/16 11/13/16 History Tamsulosin [Flomax] 0.4 mg PO DAILY 11/13/16 11/13/16 History Allergies Allergy/AdvReac Type Severity Reaction Status Date / Time fish oil Allergy Unknown Verified 11/13/16 15:57 Iodinated Contrast Media - Allergy Rash/Hives Verified 11/13/16 15:57 Oral and [Iodinated Contrast Media - IV Dye] shellfish derived Allergy Rash/Hives Verified 11/13/16 15:57 warfarin sodium Allergy Unknown Verified 11/13/16 15:57 [From Coumadin] Physical Exam Vitals: Vital Signs Temp Pulse Resp BP Pulse Ox 11/14/16 08:00 103 H 43 H 86/65 95 11/14/16 07:30 99 33 H 86/65 100 11/14/16 07:00 107 H 15 100 11/14/16 06:30 98 11 L 86/65 100 11/14/16 06:00 109 H 35 H 71/55 100 11/14/16 05:30 94 33 H 71/55 100 11/14/16 05:00 92 23 73/59 100 11/14/16 04:30 98 32 H 73/59 100 11/14/16 04:00 97.8 F 116 H 32 H 81/67 100 11/14/16 03:30 104 H 33 H 81/67 100 11/14/16 03:00 110 H 21 76/58 100 11/14/16 02:30 101 H 20 76/58 100 11/14/16 02:00 102 H 35 H 71/50 100 11/14/16 01:30 108 H 25 H 71/50 100 11/14/16 01:00 118 H 30 H 64/46 100 11/14/16 00:30 100 0 L 64/46 100 11/14/16 00:00 97.6 F 96 16 82/62 100 11/13/16 23:30 102 H 82/62 99 11/13/16 23:00 115 H 18 82/63 100 11/13/16 22:30 113 H 82/63 99 11/13/16 22:15 104 H 82/63 100 11/13/16 22:00 109 H 82/63 100 11/13/16 21:30 116 H 78/58 100 11/13/16 21:00 97.6 F 102 H 24 78/58 100 11/13/16 20:30 101 H 70/53 100 11/13/16 20:00 123 H 73/57 93 L 11/13/16 19:58 120 H 11/13/16 19:25 97.4 F L 65 22 79/58 97 Intake and Output 11/13/16 11/14/16 11/14/16 22:59 06:59 14:59 Intake Total 250 690 50 Output Total 2 3 Balance 248 687 50 Intake: IV 250 250 50 Sodium Chloride 0.9% 1, 100 000 ml @ 20 mls/hr IV . Q24H [facility] Rx#:[id number] Sodium Chloride 0.9% 1, 150 50 000 ml @ 50 mls/hr IV . Q20H [facility] Rx#:[id number] Vancomycin 1,000 mg In 250 Sodium Chloride 0.9% 250 ml @ 125 mls/hr IVPB ONCE STA Rx#:[id number] Intake, IV Titration 200 Amount Sodium Chloride 0.9% 200 200 ml @ 100 mls/hr IV .Q2H [facility] Rx#:[id number] Oral 240 Output: Stool 2 3 Other: Voiding Method Urinal Urinal Weight 51.71 kg 51.7 kg Gen: This is an 81-year-old male. He is seen in ICU bed and appears to be comfortable and in no acute distress. No respiratory distress noted. HEENT: Head is atraumatic, normocephalic. Pupils equal, round. Sclerae is anicteric. Oral mucous membranes are slightly dry. NECK: Supple. No JVD. No lymphadenopathy. No thyromegaly. LUNGS: Clear to auscultation. No wheezes or rhonchi. No intercostal retractions. HEART: Irregular rate and rhythm. No murmur. Dialysis catheter to the right upper anterior chest wall without tenderness. ABDOMEN: Soft. Bowel sounds are present. No masses. No tenderness. EXTREMITIES: Bilateral pedal edema more so on the right. Dorsalis pedis is weak bilaterally. NEUROLOGICAL: Patient is awake, alert and oriented x3. Cranial nerves 2 through 12 are grossly intact. Results Results: Laboratory Results WBC 23.6 k/uL (3.8-10.6) H 11/14/16 04:31 RBC 3.12 m/uL (4.30-5.90) L 11/14/16 04:31 Hgb 9.3 gm/dL (13.0-17.5) L 11/14/16 04:31 Hct 31.3 % (39.0-53.0) L 11/14/16 04:31 MCV 100.3 fL (80.0-100.0) H 11/14/16 04:31 MCH 29.9 pg (25.0-35.0) 11/14/16 04:31 MCHC 29.8 g/dL (31.0-37.0) L 11/14/16 04:31 RDW 16.6 % (11.5-15.5) H 11/14/16 04:31 Plt Count 143 k/uL (150-450) L 11/14/16 04:31 Neutrophils % 91 % 11/14/16 04:31 Neutrophils % (Manual) 91.0 % 11/13/16 17:16 Band Neutrophils % 5.0 % 11/13/16 17:16 Lymphocytes % 6 % 11/14/16 04:31 Lymphocytes % (Manual) 2.5 % 11/13/16 17:16 Monocytes % 3 % 11/14/16 04:31 Monocytes % (Manual) 1.5 % 11/13/16 17:16 Eosinophils % 0 % 11/14/16 04:31 Basophils % 0 % 11/14/16 04:31 Neutrophils # 21.4 k/uL (1.3-7.7) H 11/14/16 04:31 Neutrophils # (Manual) 30.1 k/uL (1.3-7.7) H 11/13/16 17:16 Lymphocytes # 1.4 k/uL (1.0-4.8) 11/14/16 04:31 Lymphocytes # (Manual) 0.8 k/uL (1.0-4.8) L 11/13/16 17:16 Monocytes # 0.6 k/uL (0-1.0) 11/14/16 04:31 Monocytes # (Manual) 0.5 k/uL (0-1.0) 11/13/16 17:16 Eosinophils # 0.0 k/uL (0-0.7) 11/14/16 04:31 Basophils # 0.0 k/uL (0-0.2) 11/14/16 04:31 Nucleated RBCs 0 /100 WBC (0-0) 11/13/16 17:16 Manual Slide Review Performed 11/13/16 17:16 Polychromasia Present 11/13/16 17:16 Hypochromasia Marked 11/14/16 04:31 Anisocytosis Slight 11/14/16 04:31 Anisocytosis (manual) Present 11/13/16 17:16 Macrocytosis Slight 11/14/16 04:31 PT 12.6 sec (9.0-12.0) H 11/13/16 17:16 INR 1.3 (<1.1) 11/13/16 17:16 APTT 22.1 sec (22.0-30.0) 11/13/16 17:16 Sodium 138 mmol/L (137-145) 11/14/16 04:31 Potassium 4.5 mmol/L (3.5-5.1) 11/14/16 04:31 Chloride 100 mmol/L (98-107) 11/14/16 04:31 Carbon Dioxide 25 mmol/L (22-30) 11/14/16 04:31 Anion Gap 13 mmol/L 11/14/16 04:31 BUN 23 mg/dL (9-20) H 11/14/16 04:31 Creatinine 2.04 mg/dL (0.66-1.25) H 11/14/16 04:31 Est GFR (MDRD) Af Amer 38 (>60 ml/min/1.73 sqM) 11/14/16 04:31 Est GFR (MDRD) Non-Af 32 (>60 ml/min/1.73 sqM) 11/14/16 04:31 Glucose 192 mg/dL (74-99) H 11/14/16 04:31 POC Glucose (mg/dL) 181 mg/dL (75-99) H 11/14/16 09:13 POC Glu High Pressure Boiler Operator ID Noa Edwards 11/14/16 09:13 Plasma Lactic Acid Chase 2.2 mmol/L (0.7-2.0) H* 11/14/16 00:55 Calcium 8.4 mg/dL (8.4-10.2) 11/14/16 04:31 Phosphorus 3.0 mg/dL (2.5-4.5) 11/14/16 04:31 Magnesium 2.0 mg/dL (1.6-2.3) 11/14/16 04:31 Total Bilirubin 2.4 mg/dL (0.2-1.3) H 11/14/16 04:31 AST 19 U/L (17-59) 11/14/16 04:31 ALT 24 U/L (21-72) 11/14/16 04:31 Alkaline Phosphatase 262 U/L (38-126) H 11/14/16 04:31 Total Creatine Kinase 22 U/L (55-170) L 11/13/16 17:16 CK-MB (CK-2) 1.6 ng/mL (0.0-2.4) 11/13/16 17:16 CK-MB (CK-2) Rel Index 7.3 11/13/16 17:16 Troponin I 0.028 ng/mL (0.000-0.034) 11/13/16 17:16 Total Protein 6.5 g/dL (6.3-8.2) 11/14/16 04:31 Albumin 3.0 g/dL (3.5-5.0) L 11/14/16 04:31 Urine Color [place] 11/13/16 18:50 Urine Appearance Turbid (Clear) 11/13/16 18:50 Urine pH 5.5 (5.0-8.0) 11/13/16 18:50 Ur Specific [place] 1.017 (1.001-1.035) 11/13/16 18:50 Urine Protein 2+ (Negative) H 11/13/16 18:50 Urine Glucose (UA) Negative (Negative) 11/13/16 18:50 Urine Ketones Negative (Negative) 11/13/16 18:50 Urine Blood Moderate (Negative) H 11/13/16 18:50 Urine Nitrite Negative (Negative) 11/13/16 18:50 Urine Bilirubin 1+ (Negative) H 11/13/16 18:50 Urine Urobilinogen 4.0 mg/dL (<2.0) 11/13/16 18:50 Ur Leukocyte Esterase Large (Negative) H 11/13/16 18:50 Urine RBC 16 /hpf (0-5) H 11/13/16 18:50 Urine WBC >182 /hpf (0-5) H 11/13/16 18:50 Urine WBC Clumps Many /hpf (None) H 11/13/16 18:50 Urine Bacteria Moderate /hpf (None) H 11/13/16 18:50 Hyaline Casts 8 /lpf (0-2) H 11/13/16 18:50 Random Vancomycin 14.1 ug/mL 11/14/16 04:31 CBC & Chem 7: 11/14/16 04:31 11/14/16 04:31 Labs: Abnormal Lab Results - Last 24 Hours (Table) 11/13/16 11/14/16 11/14/16 Range/Units 20:10 00:55 04:31 WBC (3.8-10.6) k/uL RBC (4.30-5.90) m/uL Hgb (13.0-17.5) gm/dL Hct (39.0-53.0) % MCV (80.0-100.0) fL MCHC (31.0-37.0) g/dL RDW (11.5-15.5) % Plt Count (150-450) k/uL Neutrophils # (1.3-7.7) k/uL BUN 23 H (9-20) mg/dL Creatinine 2.04 H (0.66-1.25) mg/dL Glucose 192 H (74-99) mg/dL POC Glucose (mg/dL) 187 H (75-99) mg/dL Plasma Lactic Acid Chase 2.2 H* (0.7-2.0) mmol/L Total Bilirubin 2.4 H (0.2-1.3) mg/dL Alkaline Phosphatase 262 H (38-126) U/L Albumin 3.0 L (3.5-5.0) g/dL 11/14/16 Range/Units 04:31 WBC 23.6 H (3.8-10.6) k/uL RBC 3.12 L (4.30-5.90) m/uL Hgb 9.3 L (13.0-17.5) gm/dL Hct 31.3 L (39.0-53.0) % MCV 100.3 H (80.0-100.0) fL MCHC 29.8 L (31.0-37.0) g/dL RDW 16.6 H (11.5-15.5) % Plt Count 143 L (150-450) k/uL Neutrophils # 21.4 H (1.3-7.7) k/uL BUN (9-20) mg/dL Creatinine (0.66-1.25) mg/dL Glucose (74-99) mg/dL POC Glucose (mg/dL) (75-99) mg/dL Plasma Lactic Acid Chase (0.7-2.0) mmol/L Total Bilirubin (0.2-1.3) mg/dL Alkaline Phosphatase (38-126) U/L Albumin (3.5-5.0) g/dL Assessment and Plan Plan: This is an 81-year-old male who presented with signs of sepsis, septicemia and Klebsiella bacteremia. Patient is currently on Zosyn and vancomycin, pharmacy dosing. We have requested sensitivity be obtained from the dialysis center on recent outpatient blood culture. Repeat blood cultures are in progress here. Urine cultures also in progress. He is on IV antibiotics in form of Zosyn and vancomycin, pharmacy dosing which vancomycin will be discontinued. Continue supportive care. He is also followed by insurance clerk and nephrology. Local wound care to coccyx decubitus ulcer stage II present on admission. Further recommendations as patient progresses. The above dictated assessment and findings were discussed with Dr. Ferrera. The impression and plan of care have been directed as dictated. Gina Guevara nurse practitioner acting as scribe for Dr. Ferrera.
[2016-11-14] MEDS: DOCUSATE 100 MG CAP PO SCH ×2 (09:28→17:49)
[2016-11-14] MEDS: DONEPEZIL 10 MG TAB PO SCH (09:28)
[2016-11-14] MEDS: PIPERACILLIN-TAZOBACTAM 3.375 GM in DEXTROSE/WATER 1 50ML.BAG IVPB SCH ×2 (09:33→21:15)
[2016-11-14] MEDS ORDERED: VANCOMYCIN 1,000 MG in SODIUM CHLORIDE 0.9% 250 ML IVPB ONE (11:00)
[2016-11-14 12:29] LABS: Glucose,Whole Blood 248 mg/dL (75-99)
--- NOTE | 2016-11-14 12:59 | P.CNPUL ---
History of Present Illness Consult date: 11/14/16 Requesting physician: Jose Farah Reason for consult: other (sepsis, hypotension, CHF, renal failure) History of present illness: This is an 81-year-old male patient being evaluated and examined today in the intensive care unit. This patient was sent over to us from the dialysis center due to significant weakness and fever as well as lethargy. Apparently he had blood cultures done on 59 which showed Klebsiella. When the patient was evaluated in the emergency room he was found to be tachycardic, hypotension with leukocytosis and lactic acidosis. His urine analysis also was turbid, leuko-esterase was large, blood was moderate, wbc's greater than 182 and bacteria was moderate. Culture is in progress. Patient was then sent to the ICU for sepsis. Chest x-ray was reviewed and shows no acute pulmonary disease. This also noted that he has a decubitus ulcer to the coccyx stage II. Patient has a significant history for chronic atrial fibrillation, congestive systolic heart failure, nonischemic cardiomyopathy with AICD, and chronic renal failure. The patient was currently being treated at [facility] rehab facility. Upon examination the patient is resting up in bed on 3 L of oxygen via nasal cannula, the patient does not use home oxygen. Patient does complain of a cough with minimal sputum production. He continues to get short of breath with exertion or extensive conversation. Review of Systems 14 point review of systems was completed and is negative other than what is noted above. Past Medical History Past Medical History: Atrial Fibrillation, Cancer, Heart Failure, Diabetes Mellitus, Hyperlipidemia, Hypertension, Pneumonia, Renal Disease, Skin Disorder Additional Past Medical History / Comment(s): 08/15/16 pneumonia/ influenza B. He was also started on dialysis at that time per his spouse.10/14/16 UTI- WENT TO [facility] FOR REHAB JUST WENT HOME 11-05-16 Other Hx: Hemodialysis Tue/Th/ Sat, , cardiomyopathy, coccyx wounds currently-dsng, IDDM type II, spouse denies pt ever having HTN, bronchitis, bronchospasms, skin cancer with removal.pancreatitis History of Any Multi-Drug Resistant Organisms: None Reported Past Surgical History: AICD, Cholecystectomy, Hernia Repair Additional Past Surgical History / Comment(s): defibrillator, cataracts removed , skin CA removed from face, colonoscopy, L inguinal hernia repair. Past Anesthesia/Blood Transfusion Reactions: No Reported Reaction Type of Cardiac Device: AICD Device Placement Date:: 07-28-11 Past Psychological History: No Psychological Hx Reported Additional Psychological History / Comment(s): Pt came home from [facility] on -lives withhis of 54 years(melanie).uses a walker when up,also has a w/c, walker w/seat,shower chair. recieving services from [facility] care nurse, pt/ ot. Spouse states yesterday. Smoking Status: Never smoker Past Alcohol Use History: None Reported Past Drug Use History: None Reported - Past Family History Mother History Unknown: Yes Additional Family Medical History / Comment(s): Pt does not know parents history -he was raised in foster care. Son(s) Family Medical History: AFIB Additional Family Medical History / Comment(s): son had heart transplant Medications and Allergies Home Medications Medication Instructions Recorded Confirmed Type Insulin Detemir [Levemir Flextouch] 6 units SQ DAILY@0700 09/03/14 11/13/16 History Lovastatin [Mevacor] 40 mg PO HS@2100 09/03/14 11/13/16 History Apixaban [Eliquis] 2.5 mg PO BID@0800,1700 01/18/16 11/13/16 History Isosorbide Dinitrate [Isordil] 10 mg PO BID@0800,1700 01/18/16 11/13/16 History Rivastigmine Tartrate 1.5 mg PO BID@0800,1700 01/18/16 11/13/16 History [Rivastigmine] Furosemide [Lasix] 40 mg PO DAILY@0600 08/15/16 11/13/16 History Acetaminophen Tab [Tylenol] 650 mg PO Q4H PRN 09/16/16 11/13/16 History Amiodarone [Cordarone] 200 mg PO BID@0800,1700 09/16/16 11/13/16 History Docusate [Colace] 100 mg PO BID@0800,1700 09/16/16 11/13/16 History Megestrol [Megace] 400 mg PO DAILY@0800 09/16/16 11/13/16 History Metoprolol Succinate (ER) [Toprol 50 mg PO DAILY@1700 09/16/16 11/13/16 History XL] Midodrine [ProAmatine] 5 mg PO TID@0600,1400,2100 09/16/16 11/13/16 History Pantoprazole [Protonix] 40 mg PO DAILY@0600 09/16/16 11/13/16 History B Complex & C No.20/Folic Acid 1 mg PO HS 10/03/16 11/13/16 History [Nephrocaps Softgel] Bisacodyl [Dulcolax] 10 mg RECTAL DAILY PRN 10/03/16 11/13/16 History Dorzolamide 2% [Trusopt 2%] 1 drops BOTH EYES BID@0800,1700 10/03/16 11/13/16 History Insulin Aspart [NovoLOG Flexpen] See Protocol SQ TID 10/03/16 11/13/16 History Tamsulosin [Flomax] 0.4 mg PO DAILY 11/13/16 11/13/16 History Allergies Allergy/AdvReac Type Severity Reaction Status Date / Time fish oil Allergy Unknown Verified 11/13/16 15:57 Iodinated Contrast Media - Allergy Rash/Hives Verified 11/13/16 15:57 Oral and [Iodinated Contrast Media - IV Dye] shellfish derived Allergy Rash/Hives Verified 11/13/16 15:57 warfarin sodium Allergy Unknown Verified 11/13/16 15:57 [From Coumadin] Physical Exam Vitals: Vital Signs Temp Pulse Resp BP Pulse Ox 11/14/16 10:30 101 H 22 81/59 99 11/14/16 10:00 95 16 80/51 100 11/14/16 09:30 103 H 22 80/51 99 11/14/16 09:00 106 H 11 L 79/62 100 11/14/16 08:30 98.2 F 111 H 16 79/62 90 L 11/14/16 08:00 103 H 43 H 86/65 95 11/14/16 07:30 99 33 H 86/65 100 11/14/16 07:00 107 H 15 100 11/14/16 06:30 98 11 L 86/65 100 11/14/16 06:00 109 H 35 H 71/55 100 11/14/16 05:30 94 33 H 71/55 100 11/14/16 05:00 92 23 73/59 100 11/14/16 04:30 98 32 H 73/59 100 11/14/16 04:00 97.8 F 116 H 32 H 81/67 100 11/14/16 03:30 104 H 33 H 81/67 100 11/14/16 03:00 110 H 21 76/58 100 11/14/16 02:30 101 H 20 76/58 100 11/14/16 02:00 102 H 35 H 71/50 100 11/14/16 01:30 108 H 25 H 71/50 100 11/14/16 01:00 118 H 30 H 64/46 100 11/14/16 00:30 100 0 L 64/46 100 11/14/16 00:00 97.6 F 96 16 82/62 100 11/13/16 23:30 102 H 82/62 99 11/13/16 23:00 115 H 18 82/63 100 11/13/16 22:30 113 H 82/63 99 11/13/16 22:15 104 H 82/63 100 11/13/16 22:00 109 H 82/63 100 11/13/16 21:30 116 H 78/58 100 11/13/16 21:00 97.6 F 102 H 24 78/58 100 11/13/16 20:30 101 H 70/53 100 11/13/16 20:00 123 H 73/57 93 L 11/13/16 19:58 120 H 11/13/16 19:25 97.4 F L 65 22 79/58 97 Intake and Output 11/13/16 11/14/16 11/14/16 22:59 06:59 14:59 Intake Total 250 690 200 Output Total 2 3 1 Balance 248 687 199 Intake: IV 250 250 200 Sodium Chloride 0.9% 1, 100 000 ml @ 20 mls/hr IV . Q24H [facility] Rx#:[id number] Sodium Chloride 0.9% 1, 150 200 000 ml @ 50 mls/hr IV . Q20H [facility] Rx#:[id number] Vancomycin 1,000 mg In 250 Sodium Chloride 0.9% 250 ml @ 125 mls/hr IVPB ONCE STA Rx#:[id number] Intake, IV Titration 200 Amount Sodium Chloride 0.9% 200 200 ml @ 100 mls/hr IV .Q2H [facility] Rx#:[id number] Oral 240 Output: Stool 2 3 1 Other: Voiding Method Urinal Urinal Urinal # Bowel Movements 1 Weight 51.71 kg 51.7 kg 51.7 kg Patient Weight 11/15/16 06:59 Weight 51.7 kg GENERAL EXAM: Alert, active, comfortable in no apparent distress. HEAD: Normocephalic. EYES: Normal reaction of pupils, equal size. NOSE: Clear with pink turbinates. THROAT: No erythema or exudates. NECK: No masses, no JVD. CHEST: No chest wall deformity. LUNGS: Equal air entry with no crackles, wheeze, rhonchi or dullness. Bases diminished CVS: S1 and S2 normal with no audible mumurs, irregular rhythm. ABDOMEN: No hepatosplenomegaly, normal bowel sounds, no guarding or rigidity. EXTREMITIES: Bilateral pedal edema noted, pedal pulses palpable however weak. SKIN: No rashes, decubitus ulcer on the coccyx stage II CENTRAL NERVOUS SYSTEM: No focal deficits, tone is normal in all 4 extremities. Results - Laboratory Findings CBC and BMP: 11/14/16 04:31 11/14/16 04:31 PT/INR, D-dimer PT 12.6 sec (9.0-12.0) H 11/13/16 17:16 INR 1.3 (<1.1) 11/13/16 17:16 Abnormal lab findings: Abnormal Labs 11/13/16 11/14/16 11/14/16 20:10 00:55 04:31 WBC RBC Hgb Hct MCV MCHC RDW Plt Count Neutrophils # BUN 23 H Creatinine 2.04 H Glucose 192 H POC Glucose (mg/dL) 187 H Plasma Lactic Acid Chase 2.2 H* Total Bilirubin 2.4 H Alkaline Phosphatase 262 H Albumin 3.0 L 11/14/16 11/14/16 11/14/16 04:31 09:13 12:28 WBC 23.6 H RBC 3.12 L Hgb 9.3 L Hct 31.3 L MCV 100.3 H MCHC 29.8 L RDW 16.6 H Plt Count 143 L Neutrophils # 21.4 H BUN Creatinine Glucose POC Glucose (mg/dL) 181 H 248 H Plasma Lactic Acid Chase Total Bilirubin Alkaline Phosphatase Albumin - Diagnostic Findings Chest x-ray: report reviewed, image reviewed Assessment and Plan Plan: Assessment Sepsis, septicemia with Klebsiella Acute hypoxic respiratory failure Acute on chronic atrial fibrillation with rapid ventricular response Chronic renal failure Nonischemic cardiomyopathy Anemia Hypotension Congestive heart failure, systolic History of diabetes mellitus Plan Medications have been reviewed and will be continued as ordered. Patient should continue on supplemental oxygen to keep oxygen saturations above 90%. Continue with nebulizer treatments, supplemental oxygen, pulmonary hygiene and supportive care. Patient receives dialysis the dialysis center and nephrology will be on consult. Gentle slow rehydration. Patient is on Eliquis for his A. fib. Antibiotics per infectious disease. Recheck labs in the a.m. Her doses is guarded due to multiple comorbidities conditions. We will continue to monitor labs/results and adjust treatment as necessary. I performed an examination of the patient and discussed their management with the nurse practitioner. I have reviewed the nurse practitioner's note and agree with the documented findings and plan of care.
[2016-11-14 15:15] LABS: Hemoglobin A1C 4.8 % (4.2-6.1)
[2016-11-14 16:56] LABS: Glucose,Whole Blood 217 mg/dL (75-99)
[2016-11-14] MEDS ORDERED: METOPROLOL SUCCINATE (ER) 50 MG TAB.ER.24H PO SCH (17:00)
--- NOTE | 2016-11-14 18:59 | CONS ---
DATE OF CONSULTATION: 11/14/2016 Patient is seen for end-stage renal disease. REASON FOR CONSULTATION: Acute kidney injury, currently dialysis -dependent. HISTORY OF PRESENT ILLNESS: Patient is an 81-year-old male with a history of acute kidney injury, currently dialysis -dependent. He has been on dialysis for almost 2 months now. He was admitted to the hospital. His blood cultures on November 11 grew gram-negative bacilli. The patient was recently discharged from [facility] and went home. He was at home about 6 days. He also had a indwelling Clarke catheter previously, which was discontinued about 10 days ago. The patient denied any significant urinary symptoms. He does have sacral decub which is Stage II. There has been no drainage from his Perm-A-Cath site. He is currently maintained on Zosyn. Patient is being followed by infectious disease, so far. Blood cultures repeat blood cultures did grow gram-negative rods and his wound culture from the sacral decub grew gram-positive cocci. PAST MEDICAL HISTORY: Severe cardiomyopathy, ejection fraction of about 20%, dyslipidemia, generalized debility, atrial fibrillation, type 2 diabetes, chronic hypotension, initial history of hypertension and recent influenza type B. PAST SURGICAL HISTORY: Cholecystectomy, hernia repair and ICD placement, cataract surgery. Perm-A-Cath placement, inguinal hernia repair, colonoscopy. SOCIAL HISTORY: The patient is negative for smoking, drug abuse or alcohol abuse. Patient was recently discharged from the rehab and went home about 6 days ago. REVIEW OF SYSTEMS: As per HPI. Other systems negative. Medications include: 1. Insulin. 2. Mevacor. 3. Eliquis. 4. ( ). 5. Tylenol. 6. Lasix. 7. Cordarone. 8. Colace. 9. Megace. 10. Midodrine. 11. Toprol. 12. Dulcolax. 13. Flomax. ALLERGIES INCLUDE FISH OIL, DYE, SHELLFISH COUMADIN. On examination, the patient is comfortable, awake. He is not in any acute distress. Blood pressure is 86/61, heart rate 83 per minute. He is afebrile. Examination of the heart S1 and S2. Examination of bilateral breath sounds are heard. ABDOMEN: Soft, nontender. Examination of lower extremities shows edema 2+ bilaterally which is mainly chronic. CENTRAL NERVOUS SYSTEM: Exam is grossly intact. Patient is moving all 4 extremities. Labs show potassium 4.5, sodium 138. Hemoglobin 9.3, phosphorus 3.0. ASSESSMENT: 1. Acute kidney injury hemodialysis -dependent mainly for volume overload and severe cardiomyopathy. 2. Gram-negative bacteremia being followed by infectious disease and maintained on Zosyn. All other cultures are currently pending, if the blood cultures remain negative then we do not have to change the PermCath. 3. Atrial fibrillation, maintained on anticoagulation. PLAN: Hemodialysis in a.m. Continue Midodrine. Continue antibiotics. Repeat labs in a.m.
--- NOTE | 2016-11-14 20:16 | P.CON ---
Consult Note - . Consult date: 11/14/16 Assessment/Plan:: This is an 81-year-old male. He had a hospitalization in August 2016 for acute kidney injury and was started on hemodialysis Thursday, , Thursday. He was seen on that hospitalization by Dr. Mc from infectious disease for Pseudomonas tracheobronchitis or pneumonia. His most recent hospitalization from October 14 through October 18 which time he was treated for urinary tract infection with enterococcus for which patient was treated on ampicillin and was discharged on 7 days as well as Clarke catheter in place. Patient went to [facility] and was discharged from there on November 05. Patient states he was doing well and using a walker and gaining his strength back. He has been following with hemodialysis center and they had noted that he had a fever and blood cultures were obtained on 11/11 which Klebsiella oxytoca, sensitivity not available. Patient was sent into [facility] emergency center for evaluation and found to be tachycardic, hypotensive with leukocytosis initially of 31.4 area and platelet count 143 and he does have history of mild thrombocytopenia. Hemoglobin is 9.3. BUN 23 and creatinine 2.04. Albumin 3. Urinalysis was turbid, leukoesterase large, blood moderate, WBCs greater than 182. Bacteria moderate. 2 blood cultures have status received. Urine culture is in process. There are consult in place for Dr. Ibrahim for intensive care management and nephrology. Chest x-ray is showing no acute pulmonary disease. Patient is also known to have a decubitus ulcer to the coccyx stage II. Patient had Clarke catheter removed on November 05. His most recent urine culture on October 14 positive for Enterococcus faecalis (not VRE) and Monet. Patient also has significant history of chronic atrial fibrillation on amiodarone and eliquis as well as chronic systolic heart failure and nonischemic cardiomyopathy with AICD. Please see the consult note is dictated by nurse practitioner Mrs. Gina Guevara. 81-year-old male who has a very significant recent past medical history requiring hospitalizations for sepsis. Apparently he is now developed renal failure and is on hemodialysis. [facility] but had been in extended care until 4 days before this admission. Family relates she suddenly became ill he was brought to hospital. He was seen in the dialysis center and cultures were obtained and no gram-negative bacilli, Klebsiella has been isolated. Fortunately it is not a resistant pathogen. In piperacillin tazobactam may be continued. No evidence of any gram-positive sepsis of the thus the vancomycin may be discontinued. Source of sepsis would be of concern related to his dialysis. The coccyx ulceration appears to be quite minimal. Urine however is markedly abnormal as other potential source of sepsis. He has significant leukocytosis appear to be directly related to his current sepsis. For now ongoing supportive care. He however certainly has multiple comorbidities and has a poor prognosis. I agree with evaluation, assessment and plan as dictated by nurse practitioner Mrs. Gina Guevara.
[2016-11-14 21:14] LABS: Glucose,Whole Blood 225 mg/dL (75-99)
[2016-11-14] MEDS: ATORVASTATIN 10 MG TAB PO SCH (21:14)
[2016-11-14] MEDS: FOLIC ACID-VIT B COMPLEX-VIT C 1 CAP PO SCH (21:15)
[2016-11-15 04:39] LABS: Anisocytosis Slight; Basophils # (A) 0.1 k/uL (0-0.2); Basophils % (A) 0 %; CH 29.9; Eosinophils # (A) 0.2 k/uL (0-0.7); Eosinophils % (A) 1 %; HCT 31.2 % (39.0-53.0); HDW 2.84; HGB 9.4 gm/dL (13.0-17.5); Hypochromasia Marked; Luc # (Auto) 0.21; Luc % (Auto) 1; Lymphocytes # (A) 1.6 k/uL (1.0-4.8); Lymphocytes % (A) 11 %; MCH 30.4 pg (25.0-35.0); MCHC 30.3 g/dL (31.0-37.0); MCV 100.4 fL (80.0-100.0); Macrocytosis Slight; Mean Platelet Volume 8.5; Monocytes # (A) 0.6 k/uL (0-1.0); Monocytes % (A) 4 %; Neutrophils # (A) 12.2 k/uL (1.3-7.7); Neutrophils % (A) 83 %; RBC 3.11 m/uL (4.30-5.90); RDW 17.2 % (11.5-15.5); WBC 14.8 k/uL (3.8-10.6); WBC (Perox) 15.19
[2016-11-15 04:53] LABS: Calcium 8.5 mg/dL (8.4-10.2); Phosphorous 3.8 mg/dL (2.5-4.5); Potassium 4.7 mmol/L (3.5-5.1)
[2016-11-15] MEDS: FUROSEMIDE 40 MG TAB PO SCH ×2 (06:03→21:00)
[2016-11-15] MEDS: PANTOPRAZOLE 40 MG TABLET PO SCH (06:04)
[2016-11-15] MEDS: MIDODRINE 5 MG TAB PO SCH ×3 (06:04→21:00)
[2016-11-15] MEDS: SODIUM CHLORIDE 0.9% 1,000 ML IV SCH (06:04)
[2016-11-15 08:48] LABS: Glucose,Whole Blood 91 mg/dL (75-99)
[2016-11-15] MEDS: INSULIN LISPRO (humaLOG) 300 UNIT/3 ML VIAL SQ SCH ×3 (08:51→18:25)
[2016-11-15] MEDS: APIXABAN 2.5 MG TABLET PO SCH ×2 (08:51→16:53)
[2016-11-15] MEDS: AMIODARONE 200 MG TAB PO SCH (08:51)
[2016-11-15] MEDS: MEGESTROL 400 MG/10 ML CUP PO SCH (08:52)
[2016-11-15] MEDS: DOCUSATE 100 MG CAP PO SCH ×2 (08:52→16:54)
[2016-11-15] MEDS: DORZOLAMIDE HCL 2% DROPS 10 ML BTL BOTH EYES SCH ×2 (08:52→16:53)
[2016-11-15] MEDS: TAMSULOSIN 0.4 MG CAP.ER.24H PO SCH (08:52)
[2016-11-15] MEDS: DONEPEZIL 10 MG TAB PO SCH (08:53)
[2016-11-15] MEDS: ISOSORBIDE DINITRATE 10 MG TAB PO SCH (09:07)
[2016-11-15] MEDS: PIPERACILLIN-TAZOBACTAM 3.375 GM in DEXTROSE/WATER 1 50ML.BAG IVPB SCH ×2 (09:10→21:00)
--- NOTE | 2016-11-15 10:39 | P.PN ---
Subjective Principal diagnosis: Hypotension, febrile illness. This is a very pleasant 81-year-old gentleman who follows with Dr. Hernandez in our office. He has a history of atrial fibrillation, congestive heart failure, diabetes mellitus, hyperlipidemia, hypertension and previous pneumonia and influenza B infections. He was here in October 2016 subsequent discharge to [facility] for inpatient rehabilitation and was home only a short period of time. He does have end-stage renal failure and receives hemodialysis 3 days a week. He was at the dialysis center when he had developed significant weakness and fever with lethargy. He was brought here for the same. Her previous blood culture had revealed Klebsiella. He is seen again today in follow-up in the intensive care unit. He is awake and alert in no acute distress. He did receive dialysis again this morning. He's been hemodynamically stable. He is on 2 L/m per nasal cannula maintaining good O2 saturations in the upper 90s. He has a 0.9 normal saline at 50 MLS per hour. Denies any shortness of breath, cough or congestion. No chest pain, lightheadedness or dizziness. Objective - Vital Signs Vital signs: Vital Signs Temp 97.1 F L 11/15/16 10:00 Pulse 97 11/15/16 10:00 Resp 12 11/15/16 10:00 BP 72/57 11/15/16 10:00 Pulse Ox 100 11/15/16 10:00 Intake & Output 11/14/16 11/15/16 11/15/16 18:59 06:59 18:59 Intake Total 600 717.5 150 Output Total 3 152 1999 Balance 597 565.5 -1850 Weight 51.7 kg 52 kg Intake: IV 600 500 150 Sodium Chloride 0.9% 1, 600 500 150 000 ml @ 50 mls/hr IV . Q20H [facility] Rx#:[id number] Intake, IV Titration 37.5 Amount Piperacillin-Tazobactam 3 37.5 .375 gm In Dextrose/Water 1 50ml.bag @ 12.5 mls/hr IVPB Q12HR [facility] Rx#: [id number] Oral 180 Output: Urine 150 Stool 3 2 Other 1999 Other: Voiding Method Urinal Bedside Commode Bedside Commode Urinal Urinal # Voids 1 # Bowel Movements 1 1 - Exam GENERAL EXAM: Frail, cachectic. Alert, comfortable in no apparent distress. HEAD: Normocephalic. EYES: Normal reaction of pupils, equal size. NOSE: Clear with pink turbinates. THROAT: No erythema or exudates. NECK: No masses, no JVD. CHEST: No chest wall deformity. LUNGS: Equal air entry with no crackles, wheeze, rhonchi or dullness. CVS: S1 and S2 normal with no audible murmurs, regular rhythm. ABDOMEN: No hepatosplenomegaly, normal bowel sounds, no guarding or rigidity. SPINE: No scoliosis or deformity SKIN: No rashes CENTRAL NERVOUS SYSTEM: No focal deficits, tone is normal in all 4 extremities. Extremities: There is trace peripheral edema. No clubbing, no cyanosis. Peripheral pulses are intact. - Labs CBC & Chem 7: 11/15/16 04:18 11/15/16 04:18 Labs: Abnormal Lab Results - Last 24 Hours (Table) 11/14/16 11/14/16 11/14/16 Range/Units 12:28 16:54 21:12 WBC (3.8-10.6) k/uL RBC (4.30-5.90) m/uL Hgb (13.0-17.5) gm/dL Hct (39.0-53.0) % MCV (80.0-100.0) fL MCHC (31.0-37.0) g/dL RDW (11.5-15.5) % Neutrophils # (1.3-7.7) k/uL Sodium (137-145) mmol/L BUN (9-20) mg/dL Creatinine (0.66-1.25) mg/dL Glucose (74-99) mg/dL POC Glucose (mg/dL) 248 H 217 H 225 H (75-99) mg/dL 11/15/16 11/15/16 Range/Units 04:18 04:18 WBC 14.8 H (3.8-10.6) k/uL RBC 3.11 L (4.30-5.90) m/uL Hgb 9.4 L (13.0-17.5) gm/dL Hct 31.2 L (39.0-53.0) % MCV 100.4 H (80.0-100.0) fL MCHC 30.3 L (31.0-37.0) g/dL RDW 17.2 H (11.5-15.5) % Neutrophils # 12.2 H (1.3-7.7) k/uL Sodium 135 L (137-145) mmol/L BUN 40 H (9-20) mg/dL Creatinine 2.73 H (0.66-1.25) mg/dL Glucose 136 H (74-99) mg/dL POC Glucose (mg/dL) (75-99) mg/dL Microbiology - Last 24 Hours (Table) 11/13/16 23:09 Gram Stain - Preliminary Other - Other Wound Culture - Preliminary Presumptive MRSA 11/13/16 21:00 Blood Culture Gram Stain - Preliminary Blood Blood Culture - Preliminary Gram Neg Bacilli 11/13/16 21:00 Blood Culture - Final Blood Assessment and Plan Plan: Impression: #1 Sepsis secondary to gram-negative bacilli in his blood, gram-negative bacilli in the urine culture, presumptive MRSA in the wound culture. Currently on vancomycin and Zosyn. #2 End-stage renal failure receiving hemodialysis. Current creatinine 2.73. #3 Atrial fibrillation. #4 History of congestive heart failure. #5 Diabetes mellitus. #6 Hyperlipidemia. #7 Hypertension. #8 Poor overall functional performance based on the above-mentioned comorbidities. Recent extended care facility resident. Her graft plan: The patient was seen and evaluated by Dr. Bryant. He is stable from the pulmonary and critical care standpoint he could be transferred out of the intensive care unit today. His routine blood pressures is in the 80s and 90s systolically. He is asymptomatic at this point. We'll continue with his current medications. We'll continue to follow.
[2016-11-15 12:39] LABS: Glucose,Whole Blood 126 mg/dL (75-99)
[2016-11-15] MEDS ORDERED: ACETAMINOPHEN TAB 325 MG TAB PO PRN (13:15)
--- NOTE | 2016-11-15 15:06 | PN ---
Patient is seen for follow-up for acute kidney injury, currently hemodialysis-dependent. He was admitted to the hospital with blood cultures growing gram-negative bacilli, the organism has not been identified yet, but repeat cultures remain positive. Patient is maintained on Zosyn. He was dialyzed today. His blood pressure has stayed at about 80 to 85 mmHg systolic. No pressors on board at this time. Patient is maintained on IV fluids at 50 mL an hour. He also has a sacral decub and wound culture of the head is growing MRSA. Patient has been evaluated by ID. On examination, blood pressure is 102/64, heart rate 120 per minute. He is afebrile. Examination of the heart S1 and S2. Examination of the lungs: Decreased breath sounds in bases. Abdomen is soft, nontender. Examination of lower extremities shows edema 2+ bilaterally. OBSTETRIC ASSISTANT exam is grossly intact. Labs show sodium 135, potassium 4.7. Hemoglobin 9.4 g/dL and repeat blood cultures remain. ASSESSMENT: 1. Acute kidney injury, currently dialysis -dependent maintained on hemodialysis on a Thursday, , Thursday schedule. Patient was dialyzed this morning. 2. Sepsis with gram-negative bacteremia, which appears to be persistent. He is maintained on Zosyn. If we are not able to clear the bacteremia we will need to discontinue the Perm-A-Cath. 3. Severe cardiomyopathy with ejection fraction of about 20%. 4. Mild volume overload. We will discontinue the IV fluids. 5. Chronic hypotension mainly due to poor cardiac status and severe cardiomyopathy. PLAN: Discontinue IV fluids. Continue midodrine. Continue antibiotics. Follow up on repeat cultures.
[2016-11-15] MEDS ORDERED: DEXTROSE 5% IN WATER 100 ML with AMIODARONE 150 MG IV ONE (16:10)
[2016-11-15] MEDS: AMIODARONE 450 MG in DEXTROSE 5% IN WATER 250 ML IV SCH ×2 (16:53)
[2016-11-15 16:59] LABS: Glucose,Whole Blood 200 mg/dL (75-99)
[2016-11-15 19:43] LABS: Glucose,Whole Blood 221 mg/dL (75-99)
[2016-11-15] MEDS: ATORVASTATIN 10 MG TAB PO SCH (21:00)
[2016-11-15] MEDS: FOLIC ACID-VIT B COMPLEX-VIT C 1 CAP PO SCH (21:00)
[2016-11-16] MEDS: HYDROcodone/APAP 5-325MG 1 EACH TAB PO PRN ×4 (00:20→16:13)
[2016-11-16 04:39] LABS: Calcium 8.9 mg/dL (8.4-10.2); Magnesium 2.2 mg/dL (1.6-2.3); Phosphorous 4.5 mg/dL (2.5-4.5); Potassium 4.4 mmol/L (3.5-5.1)
[2016-11-16 04:54] LABS: Anisocytosis Slight; Basophils % (A) 0 %; CH 29.6; Eosinophils % (A) 0 %; HCT 35.4 % (39.0-53.0); HDW 2.88; HGB 10.4 gm/dL (13.0-17.5); Hypochromasia Marked; Luc # (Auto) 0.17; Luc % (Auto) 1; Lymphocytes # (A) 1.4 k/uL (1.0-4.8); Lymphocytes % (A) 6 %; MCH 30.3 pg (25.0-35.0); MCHC 29.4 g/dL (31.0-37.0); MCV 103.1 fL (80.0-100.0); Macrocytosis Moderate; Mean Platelet Volume 9.3; Monocytes # (A) 0.7 k/uL (0-1.0); Monocytes % (A) 3 %; Neutrophils # (A) 22.6 k/uL (1.3-7.7); Neutrophils % (A) 91 %; RBC 3.43 m/uL (4.30-5.90); RDW 17.1 % (11.5-15.5); WBC 24.9 k/uL (3.8-10.6); WBC (Perox) 23.68
[2016-11-16] MEDS: INSULIN LISPRO (humaLOG) 300 UNIT/3 ML VIAL SQ SCH ×5 (05:05→20:36)
[2016-11-16] MEDS: MIDODRINE 5 MG TAB PO SCH ×3 (05:06→20:33)
[2016-11-16] MEDS: PANTOPRAZOLE 40 MG TABLET PO SCH (05:09)
[2016-11-16 07:48] LABS: Glucose,Whole Blood 124 mg/dL (75-99)
[2016-11-16] MEDS ORDERED: SODIUM CHLORIDE 0.9% 1,000 ML IV ONE (07:59)
[2016-11-16] MEDS: TAMSULOSIN 0.4 MG CAP.ER.24H PO SCH (08:08)
[2016-11-16] MEDS: MEGESTROL 400 MG/10 ML CUP PO SCH (08:08)
[2016-11-16] MEDS: APIXABAN 2.5 MG TABLET PO SCH ×2 (08:08→16:29)
[2016-11-16] MEDS: DORZOLAMIDE HCL 2% DROPS 10 ML BTL BOTH EYES SCH ×2 (08:09→16:29)
[2016-11-16] MEDS: DOCUSATE 100 MG CAP PO SCH ×2 (08:09→16:29)
[2016-11-16] MEDS: DONEPEZIL 10 MG TAB PO SCH (08:09)
[2016-11-16] MEDS: AMIODARONE 450 MG in DEXTROSE 5% IN WATER 250 ML IV SCH ×2 (08:10)
[2016-11-16] MEDS: PIPERACILLIN-TAZOBACTAM 3.375 GM in DEXTROSE/WATER 1 50ML.BAG IVPB SCH (08:48)
[2016-11-16] MEDS: NOREPINEPHRIN 4 MG-0.9% NS PMX 4 MG/250 ML ML IV SCH ×2 (10:23→19:35)
[2016-11-16 12:03] LABS: Glucose,Whole Blood 90 mg/dL (75-99)
[2016-11-16] MEDS ORDERED: ONDANSETRON 4 MG/2 ML VIAL IVP PRN (13:33)
[2016-11-16] MEDS ORDERED: ALBUMIN HUMAN 25% 50 ML in EMPTY BAG 1 BAG IVPB ONE (14:25)
--- NOTE | 2016-11-16 14:46 | PN ---
Patient is seen for follow-up for acute kidney injury, currently hemodialysis-dependent. He was admitted to the hospital with gram-negative bacteremia. His urine is growing Pseudomonas. Blood culture is growing Klebsiella and his wound culture from the decubitus is growing MRSA. Patient remains mildly hypotensive. He was maintained on IV fluids which were discontinued. He normally runs low blood pressure and is on midodrine. On examination, the patient is sitting in bed, comfortable. He is not in any acute distress. Blood pressure has been 72 to 75 mmHg systolic, heart rate 61 per minute. He is afebrile. Examination of the heart S1 and S2. Examination of lungs: Decreased breath sounds at the bases. Examination of lower extremities shows edema 2+ bilaterally. BENCH EXAMINER exam shows patient is moving all 4 extremities. Labs show potassium 4.4, sodium 135. Hemoglobin 10.4 g/dL. ASSESSMENT: 1. Acute kidney injury, hemodialysis dependent. The patient will be dialyzed on Thursday. He is maintained on a Thursday, , Thursday schedule as outpatient. 2. Sepsis with gram-negative bacteremia with Klebsiella. Patient has been evaluated by infectious disease. He is maintained on antibiotics. If his blood cultures remain positive we will need to discontinue the Perm-A-Cath. 3. Urinary tract infection with pseudomonas. 4. Sacral decubitus with wound culture growing methicillin resistant Staphylococcus aureus. PLAN: Next hemodialysis will be on Thursday. Overall condition is guarded. Patient also has severe cardiomyopathy with ejection fraction of less than 20%. We will need to readdress the code status and I will address this with his again tomorrow.
[2016-11-16] MEDS ORDERED: MEROPENEM 1 GM in SODIUM CHLORIDE 0.9% 100 ML IVPB SCH (15:00)
--- NOTE | 2016-11-16 17:42 | PN ---
This is an 81-year-old gentleman with a history of sepsis secondary to Gram-negative bacteremia and possible urosepsis, Gram negative, as well as possible MRSA wound infection. The patient is currently on vancomycin and Zosyn. Apparently sometime early this morning, he developed worsening mental status with lower blood pressures. His blood pressures typically run low anyway. I am going to give him back some fluid. He had hemodialysis yesterday and 2 L was removed. He is currently on O2 at 2L. He is getting a 0.9 currently at 1 L over 2 hours. If he does not respond to that, will go ahead and give him some Levophed for blood pressure support. He was on a Cordarone drip, but that has been turned off. That was for atrial fibrillation. That was discontinued at 5:00 a.m. He has a history of end-stage renal disease, currently receiving 3 time-a-week hemodialysis, atrial fibrillation, CHF, diabetes, hyperlipidemia, hypertension and general medical debility. CURRENT VITAL SIGNS: Temperature 97, heart rate 63, respiratory rate 20, blood pressure 90/70 and a saturation to 100%. That is on 2L. Appears in no acute distress. Does look very frail and weak. HEENT: Grossly unremarkable. Mucous membranes are moist. NECK: Supple. Full range of motion. No adenopathy or thyromegaly. Cardiovascular reveals regular rhythm and rate. Heart rate in the mid 60s. S1, S2 normal. No murmur. LUNGS: Relatively clear. ABDOMEN: Soft. Bowel sounds are heard. EXTREMITIES: Intact. Minimal edema. Labs are reviewed. White count 24.9, hemoglobin 10.4, hematocrit 35.4, platelet count 162,000. Sodium 135, potassium 4.4, chloride 98, CO2 of 20, anion gap is 20, BUN and creatinine were 20 and 2.40. No chest x-ray to report. Gram stain of the wound is showing presumptive MRSA. Blood cultures are showing Klebsiella oxytoca and urine is showing evidence of Pseudomonas aeruginosa. Medications are reviewed. ASSESSMENT: 1. Sepsis secondary to Klebsiella oxytoca. 2. Methicillin-resistant Staphylococcus aureus wound infection. 3. Pseudomonas aeruginosa urinary tract infection. 4. End-stage renal disease, currently on 3 time-a-week hemodialysis. 5. Atrial fibrillation. 6. History of congestive heart failure. 7. Diabetes mellitus. 8. Hyperlipidemia. 9. Hypertension. 10. General medical debility. PLAN: For the patient's hypotension, will go ahead and give him back a liter of fluid. He did have 2 L removed yesterday. If that does not help his blood pressure, I will put him on a small dose of Levophed. No additional recommendations are made. Will continue to follow. Otherwise, DOES NOT WANT ANY CHEST COMPRESSIONS. MEDICAL TREATMENT ONLY. No additional recommendations are made. Prognosis is very guarded.
[2016-11-16 18:05] LABS: Glucose,Whole Blood 123 mg/dL (75-99)
[2016-11-16] MEDS: FOLIC ACID-VIT B COMPLEX-VIT C 1 CAP PO SCH (20:33)
[2016-11-16] MEDS: ATORVASTATIN 10 MG TAB PO SCH (20:33)
[2016-11-17 04:45] LABS: Anisocytosis Slight; Basophils % (A) 0 %; CHCM 29.1; Eosinophils # (A) 0.1 k/uL (0-0.7); Eosinophils % (A) 0 %; HCT 36.4 % (39.0-53.0); HGB 10.8 gm/dL (13.0-17.5); Hypochromasia Marked; Luc # (Auto) 0.28; Luc % (Auto) 1; Lymphocytes # (A) 1.4 k/uL (1.0-4.8); Lymphocytes % (A) 6 %; MCH 30.7 pg (25.0-35.0); MCHC 29.5 g/dL (31.0-37.0); MCV 104.1 fL (80.0-100.0); Macrocytosis Moderate; Mean Platelet Volume 8.2; Monocytes # (A) 0.6 k/uL (0-1.0); Monocytes % (A) 2 %; Neutrophils # (A) 22.5 k/uL (1.3-7.7); Neutrophils % (A) 90 %; RDW 17.5 % (11.5-15.5); WBC 24.9 k/uL (3.8-10.6); WBC (Perox) 24.86
--- NOTE | 2016-11-17 05:10 | PN ---
DATE OF SERVICE: 11/16/2016 INTERVAL HISTORY: Mr. Qureshi is an 81-year-old male with a known history of atrial fibrillation, CHF, AICD placement, hypertension, diabetes mellitus and recent influenza B infection and pneumonia and new onset hemodialysis due to acute kidney injury recently and was sent to [facility]. Came back to the hospital with generalized weakness and fever. The patient was found to have sepsis and his wound cultures growing MRSA and his blood cultures growing Klebsiella oxytoca and urine cultures are Pseudomonas and repeat blood cultures are growing Klebsiella as well. Currently on antibiotics of vancomycin and Zosyn. ID and Pulmonary is following this patient. Today patient became hypotensive and requiring pressor support. Currently patient says that he is not feeling very well and no complaints of chest pain. No worsening short of breath. Currently oxygenation is maintained with 2 L nasal cannula. Nephrology is following as well. No fever. No chills. REVIEW OF SYSTEMS: CONSTITUTIONAL: No fever. No chills. Patient does have generalized weakness and fainting. CVS: S1, S2 heard. No murmurs, no gallop. LUNGS: No cough or sputum production. Patient does have short of breath. ABDOMEN: No nausea, vomiting, abdominal pain. GENITOURINARY: Negative. ENDOCRINE: Negative. PSYCHIATRIC: Negative. All other 14-point review of systems negative except the above. The patient is a poor historian due to underlying clinical status. Current medications include Tylenol, [place] 5, DuoNeb, Eliquis, Lipitor, Dulcolax, Colace, Aricept, Trusopt, Lasix, Humalog, meropenem, Levophed, potassium protocol, midodrine, Protonix and Flomax. PHYSICAL EXAMINATION: An 81-year-old male lying in lying in the bed. Awake, alert, oriented x3. Appears to be in mild distress. VITALS: Blood pressure is 99/62, pulse is 78, respirations 28, temperature afebrile. Pulse ox is 100% on nasal cannula. The patient is hypothermic and is on warm blanket. HEENT: Atraumatic, normocephalic. Neck is supple. No JVD. CVS EXAM: S1, S2 heard. No murmurs, no gallop. LUNGS: Bilateral air entry is present. Decreased breath sounds basally. Nonlabored breathing. ABDOMEN: Soft, nontender. Bowel sounds present. WOMEN'S ACTIVITIES ADVISER: Awake, alert, oriented x3. Patient does have decub ulcers stage II, does not seem like infected. LABORATORY DATA: WBC 24.9, hemoglobin 10.4, platelets 162. Sodium 135, potassium 4.4, chloride 98, bicarb is a 17. BUN 28, creatinine 2.4. Blood sugar is 157. Magnesium 2.2. IMPRESSION: 1. Sepsis secondary to Klebsiella oxytoca, Pseudomonas urinary tract infection and methicillin-resistant staph aureus decubitus wound infection. 2. End-stage renal disease on hemodialysis. 3. Sepsis/septic shock requiring pressor support. 4. Atrial fibrillation, on anticoagulant with Eliquis. 5. History of congestive heart failure disease. 6. Diabetes hypertension. 7. Hypertension. 8. Recent pneumonia and influenza B with prolonged hospital stay. DISCUSSION AND PLAN: The patient will be continued on antibiotics changed to meropenem. ID is on board. Will continue with pressor support. Nephrology on board. Will continue current management. Further recommendations based the clinical course. Patient's current code status is DNR/DNI. Prognosis is guarded.
[2016-11-17 05:11] LABS: Calcium 8.8 mg/dL (8.4-10.2); Magnesium 2.2 mg/dL (1.6-2.3); Phosphorous 7.9 mg/dL (2.5-4.5)
[2016-11-17] MEDS: MIDODRINE 5 MG TAB PO SCH ×3 (06:21→21:27)
[2016-11-17] MEDS: FUROSEMIDE 40 MG TAB PO SCH (06:22)
[2016-11-17] MEDS: PANTOPRAZOLE 40 MG TABLET PO SCH (06:22)
[2016-11-17 07:20] LABS: Glucose,Whole Blood 189 mg/dL (75-99)
--- NOTE | 2016-11-17 08:21 | P.PN ---
Subjective Principal diagnosis: Element of hypotension related to chronic renal failure. This is a continue aspirin 81-year-old white male essentially admitted for sepsis. The patient had element of hypotension and was placed on Levothroid. The patient seems back to his baseline. Pain is now minimal and controlled. Objective - Vital Signs Vital signs: Vital Signs Temp 97.7 F 11/17/16 04:00 Pulse 71 11/17/16 07:00 Resp 14 11/17/16 07:00 BP 87/62 11/17/16 07:00 Pulse Ox 100 11/17/16 07:00 Intake & Output 11/16/16 11/17/16 11/17/16 18:59 06:59 18:59 Intake Total 1809.063 629.063 0 Output Total 1 320 0 Balance 1808.063 309.063 0 Weight 56.2 kg Intake: IV 400 Sodium Chloride 0.9% 1, 250 000 ml @ 50 mls/hr IV . Q20H [facility] Rx#:[id number] ns 150 Intake, IV Titration 1309.063 429.063 Amount Albumin Human 25% 50 ml 50 In Empty Bag 1 bag @ 100 mls/hr IVPB ONCE ONE Rx#: [id number] Meropenem 1 gm In Sodium 100 Chloride 0.9% 100 ml @ 200 mls/hr IVPB Q24H [facility] Rx#:[id number] Meropenem 1 gm In Sodium 100 Chloride 0.9% 100 ml @ 200 mls/hr IVPB Q24HR [facility] Rx#:[id number] Norepinephrin 4 mg-0.9% 9.063 429.063 Ns Pmx 4 mg In 250 ml @ 1 MCG/MIN 3.75 mls/hr IV . Q24H [facility] Rx#:[id number] Piperacillin-Tazobactam 3 50 .375 gm In Dextrose/Water 1 50ml.bag @ 12.5 mls/hr IVPB Q12HR [facility] Rx#: [id number] Sodium Chloride 0.9% 1, 1000 000 ml @ 500 mls/hr IV . Q2H ONE Rx#:[id number] Oral 100 200 0 Output: Urine 320 0 Stool 1 Other: Voiding Method Bedside Commode Bedside Commode # Bowel Movements 1 - Constitutional General appearance: Present: thin - EENT Eyes: Absent: abnormal pupil - Respiratory Respiratory: bilateral: CTA - Cardiovascular Rhythm: irregularly irregular Heart sounds: normal: S1, S2 - Gastrointestinal General gastrointestinal: Present: soft. Absent: tenderness - Integumentary Integumentary: Absent: cellulitis - Labs CBC & Chem 7: 11/17/16 04:35 11/17/16 04:35 Labs: Abnormal Lab Results - Last 24 Hours (Table) 11/16/16 11/17/16 11/17/16 Range/Units 18:03 04:35 04:35 WBC 24.9 H (3.8-10.6) k/uL RBC 3.50 L (4.30-5.90) m/uL Hgb 10.8 L (13.0-17.5) gm/dL Hct 36.4 L (39.0-53.0) % MCV 104.1 H (80.0-100.0) fL MCHC 29.5 L (31.0-37.0) g/dL RDW 17.5 H (11.5-15.5) % Neutrophils # 22.5 H (1.3-7.7) k/uL Carbon Dioxide 15 L (22-30) mmol/L BUN 42 H (9-20) mg/dL Creatinine 3.30 H (0.66-1.25) mg/dL Glucose 190 H (74-99) mg/dL POC Glucose (mg/dL) 123 H (75-99) mg/dL Phosphorus 7.9 H (2.5-4.5) mg/dL 11/17/16 Range/Units 07:19 WBC (3.8-10.6) k/uL RBC (4.30-5.90) m/uL Hgb (13.0-17.5) gm/dL Hct (39.0-53.0) % MCV (80.0-100.0) fL MCHC (31.0-37.0) g/dL RDW (11.5-15.5) % Neutrophils # (1.3-7.7) k/uL Carbon Dioxide (22-30) mmol/L BUN (9-20) mg/dL Creatinine (0.66-1.25) mg/dL Glucose (74-99) mg/dL POC Glucose (mg/dL) 189 H (75-99) mg/dL Phosphorus (2.5-4.5) mg/dL Microbiology - Last 24 Hours (Table) 11/13/16 21:00 Blood Culture Gram Stain - Final Blood Blood Culture - Final Klebsiella oxytoca 11/13/16 23:09 Gram Stain - Preliminary Other - Other Wound Culture - Final Methicillin resist S. aureus Assessment and Plan (1) Sepsis Status: Acute (2) AICD (automatic cardioverter/defibrillator) present Status: Acute (3) Anemia Status: Acute (4) Atrial fibrillation with rapid ventricular response Status: Acute (5) Cardiomyopathy, nonischemic Status: Acute (6) Chronic renal failure Status: Acute (7) High risk for readmission Status: Acute Plan: We'll go ahead and hopefully wean off of Levophed today. And then anticipate transfer to the general medical floor. Sepsis seems to be clinically stabilizing. Element of chronic renal disease with atrial fibrillation and hypertension. See orders otherwise. Time with Patient: Less than 30
[2016-11-17] MEDS: APIXABAN 2.5 MG TABLET PO SCH (08:29)
[2016-11-17] MEDS: MEGESTROL 400 MG/10 ML CUP PO SCH (08:29)
[2016-11-17] MEDS: DORZOLAMIDE HCL 2% DROPS 10 ML BTL BOTH EYES SCH ×2 (08:29→17:55)
[2016-11-17] MEDS: INSULIN LISPRO (humaLOG) 300 UNIT/3 ML VIAL SQ SCH ×4 (08:29→21:28)
[2016-11-17] MEDS: DOCUSATE 100 MG CAP PO SCH ×2 (08:30→17:55)
[2016-11-17] MEDS: DONEPEZIL 10 MG TAB PO SCH (08:30)
[2016-11-17] MEDS: NOREPINEPHRIN 4 MG-0.9% NS PMX 4 MG/250 ML ML IV SCH (08:31)
[2016-11-17] MEDS: TAMSULOSIN 0.4 MG CAP.ER.24H PO SCH (08:31)
[2016-11-17] MEDS: MEROPENEM 1 GM in SODIUM CHLORIDE 0.9% 100 ML IVPB SCH (08:31)
--- NOTE | 2016-11-17 10:08 | CONS ---
DATE OF CONSULTATION: 11/16/2016 Reason for followup is bacteremia, updated cultures and need for adjustment of antibiotics. INTERVAL HISTORY: The patient is an 81-year-old male who was brought into the ER at [facility] on 11/13/2016 after the patient was noticed to be hypertensive, fever and apparently the patient did have blood cultures obtained at the Dialysis Center that was found to positive for a gram- negative bacilli. Patient was noticed to be hypertensive with elevated white count with sepsis, admitted to the ICU and patient had been treated with vancomycin and Zosyn. I was called in early this afternoon by the R.N. taking care of the patient. The patient's blood culture has been updated and the patient is to be seen for adjustment of the antibiotic therapy. Patient remains to be hypertensive, requiring pressor support. He did receive a fluid bolus as well. Patient remains to be feeling weak and tired though denies significant chest pain or cough. No abdominal pain and no diarrhea. The patient did have a right subclavian lymphoma catheter for the last few months with a blood culture now finalized with ESBL Klebsiella. REVIEW OF SYSTEMS: Positive for weakness, rest of system appears to be negative. Past medical and social history: Reviewed. No change in medication, reviewed. On examination, blood pressure is 68/52 with a pulse of 65, temperature of 94.3, he is 100% on 2 L nasal cannula. General description is an elderly male, lying in bed in no distress with no tachypnea or accessory muscle of respiration use. HEENT examination shows pallor, no scleral icterus. Oral mucosa dry. LUNGS: Unlabored breathing. Clear to auscultation anteriorly. No wheeze or crackle. HEART: S1, S2. Regular rate and rhythm. ABDOMEN: Soft, nontender. EXTREMITIES: No edema of the feet. Physical examination multiple bruises. NEUROLOGICAL: Patient is awake, alert, oriented x3. Mood and affect normal. LABS: Hemoglobin is 10.4, white count 24.9, admission white count of 31.4 with a BUN of 28, creatinine 2.40. DIAGNOSTIC IMPRESSION AND PLAN: Patient with severe sepsis, septic shock in a patient with Klebsiella bacteremia which is an ESBL Escherichia coli, source is more likely the former catheter as the patient work-up so far including a chest x-ray was negative for any acute pneumonia. The patient is breathing comfortably and lungs were clear on auscultation and no significant abnormality was observed on the abdominal examination. PLAN: 1. Zosyn has been discontinued and meropenem has been started to cover for the ESBL, Klebsiella is more likely the source of his sepsis and we can get the patient on vancomycin for the MRSA is growing from his sacral wound. 2. Will follow this patient as of tomorrow. Overall prognosis appears to be guarded. MTDD
--- NOTE | 2016-11-17 10:55 | P.PN ---
Subjective 9-year-old male patient who is known to me from previous hospital admissions. The patient has multiple medical problems and comorbidities. He is known to have COPD, congestion heart failure, chronic atrial fibrillation and chronic renal failure and he was recently started on dialysis 3 times a week. He is also known to have hypertension and hyperlipidemia and sacral decubitus ulceration. The patient was Hospital as because of altered mental status. Later on he was found to be hypotensive and septic. No cultures were positive for Klebsiella 2 and the patient had a wound cultures was positive for MRSA and pseudomonas aeruginosa in the urine. Note that along with hypotension, the patient became pressor dependent and this morning it is on levo fed at 6 mics per KG per minute. Infectious disease evaluated the patient and patient was started on a combination of Zosyn and vancomycin. This was initially antibiotic coverage and following that he got switched to Merrem and vancomycin. The patient has a right subclavian permacath that was placed during earliest admissions. This is a IJ catheter that was inserted on 2016. There is suspicion that the gram-negative septicemia the patient has is rated to a line infection. The patient will have dialysis today and following that the permacath will be removed. Repeat blood cultures will be taken at time of dialysis. White cell count is at 24,000. Renal function shows impairment a creatinine of 3.3. Rest of the electrolytes are within normal. The patient is a bicarb level of 15 and he has a component of mild anion gap metabolic acidosis with an anion gap of 22. As for the wound, this is a stage I ulcer and his sacrum. The chest x-ray at time of admission showed no acute abnormalities. The echocardiogram that was done in August showed moderate to severe tricuspid regurgitation, and ejection fraction of less than 20% consistent with severe cardiomyopathy. Objective - Vital Signs Vital signs: Vital Signs Temp 97.9 F 11/17/16 08:00 Pulse 73 11/17/16 10:00 Resp 14 11/17/16 10:00 BP 81/58 11/17/16 10:00 Pulse Ox 100 11/17/16 10:00 Intake & Output 11/16/16 11/17/16 11/17/16 18:59 06:59 18:59 Intake Total 1809.063 629.063 332.125 Output Total 1 320 0 Balance 1808.063 309.063 332.125 Weight 56.2 kg Intake: IV 400 150 Sodium Chloride 0.9% 1, 250 000 ml @ 50 mls/hr IV . Q20H [facility] Rx#:[id number] ns 150 150 Intake, IV Titration 1309.063 429.063 182.125 Amount Albumin Human 25% 50 ml 50 In Empty Bag 1 bag @ 100 mls/hr IVPB ONCE ONE Rx#: [id number] Meropenem 1 gm In Sodium 100 Chloride 0.9% 100 ml @ 200 mls/hr IVPB Q24H [facility] Rx#:[id number] Meropenem 1 gm In Sodium 100 100 Chloride 0.9% 100 ml @ 200 mls/hr IVPB Q24HR [facility] Rx#:[id number] Norepinephrin 4 mg-0.9% 9.063 429.063 82.125 Ns Pmx 4 mg In 250 ml @ 1 MCG/MIN 3.75 mls/hr IV . Q24H [facility] Rx#:[id number] Piperacillin-Tazobactam 3 50 .375 gm In Dextrose/Water 1 50ml.bag @ 12.5 mls/hr IVPB Q12HR [facility] Rx#: [id number] Sodium Chloride 0.9% 1, 1000 000 ml @ 500 mls/hr IV . Q2H [facility] Rx#:[id number] Oral 100 200 0 Output: Urine 320 0 Stool 1 Other: Voiding Method Bedside Commode Bedside Commode # Voids 1 # Bowel Movements 1 1 - Exam Head exam was generally normal. There was no scleral icterus or corneal arcus. Mucous membranes were moist.Neck was supple and without jugular venous distension, thyromegaly, or carotid bruits. Carotids were easily palpable bilaterally. There was no adenopathy. The patient has a right IJ permacath exit site is essentially clean and intact at this point. Lung sounds are diminished bilaterally otherwise clear. Heart sounds are regular, positive S1- S2, no cervical murmurs appreciated. The patient has an AICD over the left anterior chest area and the pocket is clean.Abdominal exam revealed normal bowel sounds. The abdomen was soft, non-tender, and without masses, organomegaly , or appreciable enlargement of the abdominal aorta.Examination of the extremities revealed easily palpable radial, femoral and pedal pulses. There was no cyanosis, clubbing or edema. Her diminished pulses in lower extremities bilaterally. - Labs CBC & Chem 7: 05/15/17 04:35 11/17/16 04:35 Labs: Abnormal Lab Results - Last 24 Hours (Table) 11/16/16 11/17/16 11/17/16 Range/Units 18:03 04:35 04:35 WBC 24.9 H (3.8-10.6) k/uL RBC 3.50 L (4.30-5.90) m/uL Hgb 10.8 L (13.0-17.5) gm/dL Hct 36.4 L (39.0-53.0) % MCV 104.1 H (80.0-100.0) fL MCHC 29.5 L (31.0-37.0) g/dL RDW 17.5 H (11.5-15.5) % Neutrophils # 22.5 H (1.3-7.7) k/uL Carbon Dioxide 15 L (22-30) mmol/L BUN 42 H (9-20) mg/dL Creatinine 3.30 H (0.66-1.25) mg/dL Glucose 190 H (74-99) mg/dL POC Glucose (mg/dL) 123 H (75-99) mg/dL Phosphorus 7.9 H (2.5-4.5) mg/dL 11/17/16 Range/Units 07:19 WBC (3.8-10.6) k/uL RBC (4.30-5.90) m/uL Hgb (13.0-17.5) gm/dL Hct (39.0-53.0) % MCV (80.0-100.0) fL MCHC (31.0-37.0) g/dL RDW (11.5-15.5) % Neutrophils # (1.3-7.7) k/uL Carbon Dioxide (22-30) mmol/L BUN (9-20) mg/dL Creatinine (0.66-1.25) mg/dL Glucose (74-99) mg/dL POC Glucose (mg/dL) 189 H (75-99) mg/dL Phosphorus (2.5-4.5) mg/dL Microbiology - Last 24 Hours (Table) 11/13/16 21:00 Blood Culture Gram Stain - Final Blood Blood Culture - Final Klebsiella oxytoca 11/13/16 23:09 Gram Stain - Preliminary Other - Other Wound Culture - Final Methicillin resist S. aureus Assessment and Plan Plan: Assessment 1 septic shock with gram-negative bacteria and the patient has a penicillin pneumonia in 2 separate blood cultures. Rule out line sepsis from a permacath was inserted on 09/03/2016 for dialysis. 2 hypotension secondary to above, currently on a combination of Merrem, vancomycin and norepinephrine infusion 3 altered mental status improving 4 CHF with ejection fraction of less than 20% 5 chronic renal failure with end-stage renal disease currently on hemodialysis 3 times a week 6 chronic anemia 7 chronic atrial fibrillation 8 stage I coccyx wound with MRSA growth currently on vancomycin 9 pseudomonal urine checked infection 10 insulin-dependent diabetes mellitus type 2 11 skin cancer that was resected 12 AICD placement for severe cardiomyopathy 13 chronic atrial fibrillation maintained on long-term anticoagulation, on Eliquis 14 hyperlipidemia 15 BPH 16 previous hospitalization for an influenza pneumonia 17 very poor baseline performance and functional status Plan Our plan is to continue resuscitating this patient with normal saline at the rate of 50 mL an hour. The patient got a liter of bolus yesterday. We will gradually wean off pressors as tolerated to keep him map of above 60. We'll will proceed with dialysis today and remove the permacath and send tip for culture. Continue local wound care regarding the stage I coccygeal ulcer. Monitor the hemodynamics. ID consultation. We'll give the patient ICU as long as his pressor dependent.
[2016-11-17] MEDS ORDERED: VANCOMYCIN 1,250 MG in SODIUM CHLORIDE 0.9% 250 ML IVPB ONE (11:00)
[2016-11-17 12:09] LABS: Glucose,Whole Blood 194 mg/dL (75-99)
[2016-11-17] MEDS: SODIUM CHLORIDE 0.9% 1,000 ML IV SCH (12:33)
--- NOTE | 2016-11-17 12:54 | PN ---
The patient is seen for followup for acute kidney injury, currently hemodialysis dependent. He was admitted to the hospital with gram-negative bacteremia. His blood cultures grew Klebsiella oxytoca. His urine culture is growing Pseudomonas and wound from the sacral decub which does not look too bad is growing MRSA. Patient remains hypotensive, currently maintained on Levophed at about 7 mcg. There is consideration for possible ( ) of the Perm-A-Cath. Blood cultures have not been repeated. Patient, however, remains on Levophed and given the fact that it is gram-negative bacteremia, we will proceed with removal of the catheter after hemodialysis today and maintain catheter free until blood cultures negative to replace another Perm-A-Cath. The patient has had urine output which is now accurately measured since he does not have a Clarke catheter. I will maintain him on Lasix. On examination, blood pressure is 81/58, heart rate 73 per minute. He is afebrile. EXAMINATION OF THE HEART: S1 and S2. EXAMINATION OF THE LUNGS: Decreased breath sounds in the bases. ABDOMEN: Soft, nontender. Examination of lower extremities shows edema 2+ bilaterally. 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 Labs show sodium 139, potassium 5.0. BUN of 42. Hemoglobin 10.8 g/dL. ASSESSMENT: 1. Acute kidney injury hemodialysis-dependent secondary to severe volume overload from cardiomyopathy and cardiorenal syndrome. 2. Sepsis with gram-negative bacteremia. Patient will be dialyzed today and we will remove the Perm-A-Cath and re-insert catheter when blood cultures are negative. In the meantime if he needs dialysis, he will be dialyzed through a temporary dialysis catheter. 3. Urinary tract infection with pseudomonas. 4. Sacral decubitus with wound culture growing methicillin-resistant Staphylococcus aureus. PLAN: Hemodialysis today. DC catheter after dialysis since it is gram-negative organism and maintain patient on IV Lasix.
--- NOTE | 2016-11-17 14:59 | PN ---
DATE OF SERVICE: 11/15/2016 INTERVAL HISTORY: Mr. Qureshi is an 81-year-old male with a known history of CHF, AICD placement, atrial fibrillation, hypertension, diabetes mellitus who was recently having a long hospital stay due to pneumonia and acute kidney injury and new onset hemodialysis, who was initially discharged from the hospital to [facility] on 11/05/2016. Patient came back to the hospital with generalized weakness and fever. Patient was found to have sepsis secondary to ( ) and bleb along with present to MRSA in the wound culture and the decub ulcers. Currently antibiotics are vancomycin and Zosyn. Pulmonary and ID is following the patient. Patient is stable today and being transferred medical floor. REVIEW OF SYSTEMS: CONSTITUTIONAL: No fever. No chills. RESPIRATORY: No cough or sputum production. CARDIOVASCULAR: No chest pain or short of breath. ABDOMEN: No nausea, vomiting, or abdominal pain. GENITOURINARY: Negative. ENDOCRINE: Negative. PSYCHIATRY: Negative. SKIN: Negative. All other 14-point review of systems negative except as above. CURRENT MEDICATIONS: Reviewed. PHYSICAL EXAMINATION: An 81-year-old male, sitting in a chair. Comfortably, awake, alert, oriented, x3. Appears to be in no distress. ( ) on 2 L nasal cannula. HEENT: Atraumatic, normocephalic. Neck is supple. No JVD. CVS EXAM: S1, S2 heard. No murmurs, no gallop. LUNGS: Bilateral air entry is present. No wheezing. No crackles. Nonlabored breathing. Abdomen is soft. Bowel sounds are present. MAINTENANCE DEPARTMENT TECHNICIAN: Awake, alert, oriented x3. No focal deficit. EXTREMITIES: No edema. Pulses palpable bilaterally. No clubbing or cyanosis. PSYCHIATRIC: Cooperative. LABORATORY DATA: WBC 14.8, hemoglobin 9.4, platelets 157. Sodium 135, potassium 4.7, chloride 100, bicarb is 22, BUN 40, creatinine 2.73. IMPRESSION: 1. Sepsis secondary to gram-negative bacilli in the urine and blood and presently methicillin-resistant Staphylococcus aureus wound cultures of the decubitus ulcer. 2. History of congestive heart failure with history of AICD placement. 3. Hypertension. 4. Hyperlipidemia. 5. Endstage renal disease on hemodialysis, recently started during the previous admission. 6. Diabetes mellitus. DISCUSSION AND PLAN: Patient will be continued on broad spectrum antibiotics. Follow up on final cultures and reports. ID is on board. Patient is being transferred from intensive care unit today. Further recommendations based on the clinical course. Prognosis guarded due to multiple medical problems and comorbid conditions.
[2016-11-17 17:57] LABS: Glucose,Whole Blood 123 mg/dL (75-99)
--- NOTE | 2016-11-17 18:23 | PN ---
DATE OF SERVICE: 11/17/2016 Reason for follow-up is ESBL Klebsiella bacteremia secondary to Perm catheter and sacral wound infection. INTERVAL HISTORY: The patient is afebrile. Overall he is feeling better. Hemodynamically improving as well. Still on 7 mics of Levophed. The patient denies significant chest pain or cough. No abdominal pain. On examination, blood pressure is 87/63 with a pulse of 74, temperature 97.9. He is 98% on 2 liters nasal cannula. General description is an elderly male up in the chair in no distress. RESPIRATORY SYSTEM: Unlabored breathing. Clear to auscultation anteriorly. HEART: S1, S2. Regular rate and rhythm. ABDOMEN: Soft no tenderness. LABS: Hemoglobin is 10.4, white count 4.9 with a BUN of 42, creatinine 3.30. DIAGNOSTIC IMPRESSION AND PLAN: 1. Patient with ESBL Klebsiella bacteremia. Source is likely Perm-A-Cath as the same organism in the outpatient dialysis center. This was discussed and confirmed with Dr. Mcdermott from nephrology. The patient is on Meropenem that will be continued. However, the patient needs to have removal of this infected catheter in order to completely heal of the infection. He will be getting dialysis today and blood culture will be repeated from the catheter peripherally and the catheter will be cultured. He will be maintained on Meropenem to cover the Klebsiella as well as organism grown in the urine. 2. Patient with the wound culture with MRSA currently covered with vancomycin. Family was present at bedside. All their questions and concerns were answered. CHIKI
[2016-11-17] MEDS ORDERED: HEPARIN SODIUM,PORCINE 5,000 UNIT/ML 1 ML VIAL ONE (19:00)
[2016-11-17 21:24] LABS: Glucose,Whole Blood 145 mg/dL (75-99)
[2016-11-17] MEDS: FOLIC ACID-VIT B COMPLEX-VIT C 1 CAP PO SCH (21:27)
[2016-11-17] MEDS: FUROSEMIDE 10 MG/ML 10 ML VIAL IV SCH (21:27)
[2016-11-17] MEDS: ATORVASTATIN 10 MG TAB PO SCH (21:27)
[2016-11-17] MEDS ORDERED: TERBUTALINE FOR EXTRAVASATION 1 MG/ML VIAL SQ STA (22:32)
[2016-11-18 00:53] LABS: Calcium 8.2 mg/dL (8.4-10.2); Phosphorous 3.9 mg/dL (2.5-4.5); Potassium 3.8 mmol/L (3.5-5.1)
[2016-11-18 05:57] LABS: Anisocytosis Slight; Basophils % (A) 0 %; CHCM 30.3; Eosinophils # (A) 0.1 k/uL (0-0.7); Eosinophils % (A) 0 %; HCT 32.2 % (39.0-53.0); HDW 3.18; HGB 9.8 gm/dL (13.0-17.5); Hypochromasia Marked; Luc # (Auto) 0.12; Luc % (Auto) 1; Lymphocytes % (A) 6 %; MCH 30.6 pg (25.0-35.0); MCHC 30.6 g/dL (31.0-37.0); Macrocytosis Slight; Mean Platelet Volume 7.7; Monocytes # (A) 0.6 k/uL (0-1.0); Monocytes % (A) 4 %; Neutrophils # (A) 14.1 k/uL (1.3-7.7); Neutrophils % (A) 89 %; RBC 3.22 m/uL (4.30-5.90); RDW 17.8 % (11.5-15.5); WBC 15.9 k/uL (3.8-10.6); WBC (Perox) 15.76
[2016-11-18 06:06] LABS: Calcium 8.2 mg/dL (8.4-10.2); Magnesium 2.1 mg/dL (1.6-2.3); Phosphorous 4.5 mg/dL (2.5-4.5); Potassium 3.5 mmol/L (3.5-5.1); Total Bilirubin 1.6 mg/dL (0.2-1.3); Total Protein 5.8 g/dL (6.3-8.2)
[2016-11-18] MEDS: MIDODRINE 5 MG TAB PO SCH ×3 (07:01→22:17)
[2016-11-18] MEDS: PANTOPRAZOLE 40 MG TABLET PO SCH (07:01)
[2016-11-18] MEDS ORDERED: POTASSIUM CHLORIDE ER 20 MEQ TAB.ER PO STA (07:06)
[2016-11-18 07:21] LABS: Glucose,Whole Blood 208 mg/dL (75-99)
--- NOTE | 2016-11-18 08:01 | P.PN ---
Subjective Principal diagnosis: Element of hypotension related to chronic renal failure. This is a continue aspirin 81-year-old white male essentially admitted for sepsis. The patient had element of hypotension and was placed on Levothroid. The patient seems back to his baseline. Pain is now minimal and controlled. Objective - Vital Signs Vital signs: Vital Signs Temp 98.1 F 11/18/16 04:00 Pulse 75 11/18/16 07:00 Resp 13 11/18/16 07:00 BP 90/59 11/18/16 07:00 Pulse Ox 97 11/18/16 07:00 Intake & Output 11/17/16 11/18/16 11/18/16 18:59 06:59 18:59 Intake Total 1563.750 889.5 50 Output Total 0 1160 Balance 1563.750 -270.5 50 Weight 59.6 kg Intake: IV 200 ns 200 Intake, IV Titration 883.750 667.5 50 Amount Meropenem 1 gm In Sodium 100 Chloride 0.9% 100 ml @ 200 mls/hr IVPB Q24HR [facility] Rx#:[id number] Norepinephrin 4 mg-0.9% 183.750 67.5 Ns Pmx 4 mg In 250 ml @ 1 MCG/MIN 3.75 mls/hr IV . Q24H [facility] Rx#:[id number] Sodium Chloride 0.9% 1, 350 600 50 000 ml @ 50 mls/hr IV . Q20H [facility] Rx#:[id number] Vancomycin 1,250 mg In 250 Sodium Chloride 0.9% 250 ml @ 125 mls/hr IVPB ONCE ONE Rx#:[id number] Oral 480 222 Output: Urine 0 30 Other 1130 Other: Voiding Method Bedside Commode # Voids 1 # Bowel Movements 1 - Constitutional General appearance: Present: thin - EENT Eyes: Absent: abnormal pupil - Respiratory Respiratory: bilateral: CTA - Cardiovascular Rhythm: irregularly irregular Heart sounds: normal: S1, S2 - Gastrointestinal General gastrointestinal: Present: soft. Absent: tenderness - Labs CBC & Chem 7: 11/18/16 05:22 11/18/16 05:22 Labs: Abnormal Lab Results - Last 24 Hours (Table) 11/17/16 11/17/16 11/17/16 Range/Units 12:08 17:55 21:23 WBC (3.8-10.6) k/uL RBC (4.30-5.90) m/uL Hgb (13.0-17.5) gm/dL Hct (39.0-53.0) % MCHC (31.0-37.0) g/dL RDW (11.5-15.5) % Neutrophils # (1.3-7.7) k/uL Carbon Dioxide (22-30) mmol/L BUN (9-20) mg/dL Creatinine (0.66-1.25) mg/dL Glucose (74-99) mg/dL POC Glucose (mg/dL) 194 H 123 H 145 H (75-99) mg/dL Calcium (8.4-10.2) mg/dL Total Bilirubin (0.2-1.3) mg/dL AST (17-59) U/L ALT (21-72) U/L Alkaline Phosphatase (38-126) U/L Total Protein (6.3-8.2) g/dL Albumin (3.5-5.0) g/dL 11/18/16 11/18/16 11/18/16 Range/Units 00:15 05:22 05:22 WBC 15.9 H (3.8-10.6) k/uL RBC 3.22 L (4.30-5.90) m/uL Hgb 9.8 L (13.0-17.5) gm/dL Hct 32.2 L (39.0-53.0) % MCHC 30.6 L (31.0-37.0) g/dL RDW 17.8 H (11.5-15.5) % Neutrophils # 14.1 H (1.3-7.7) k/uL Carbon Dioxide 20 L (22-30) mmol/L BUN 23 H 25 H (9-20) mg/dL Creatinine 2.00 H 2.20 H (0.66-1.25) mg/dL Glucose 162 H 189 H (74-99) mg/dL POC Glucose (mg/dL) (75-99) mg/dL Calcium 8.2 L 8.2 L (8.4-10.2) mg/dL Total Bilirubin 1.6 H (0.2-1.3) mg/dL AST 232 H (17-59) U/L ALT 450 H (21-72) U/L Alkaline Phosphatase 205 H (38-126) U/L Total Protein 5.8 L (6.3-8.2) g/dL Albumin 2.8 L (3.5-5.0) g/dL 11/18/16 Range/Units 07:19 WBC (3.8-10.6) k/uL RBC (4.30-5.90) m/uL Hgb (13.0-17.5) gm/dL Hct (39.0-53.0) % MCHC (31.0-37.0) g/dL RDW (11.5-15.5) % Neutrophils # (1.3-7.7) k/uL Carbon Dioxide (22-30) mmol/L BUN (9-20) mg/dL Creatinine (0.66-1.25) mg/dL Glucose (74-99) mg/dL POC Glucose (mg/dL) 208 H (75-99) mg/dL Calcium (8.4-10.2) mg/dL Total Bilirubin (0.2-1.3) mg/dL AST (17-59) U/L ALT (21-72) U/L Alkaline Phosphatase (38-126) U/L Total Protein (6.3-8.2) g/dL Albumin (3.5-5.0) g/dL Microbiology - Last 24 Hours (Table) 11/13/16 17:16 Blood Culture Gram Stain - Final Blood Blood Culture - Final Klebsiella oxytoca Assessment and Plan (1) Sepsis Status: Acute (2) AICD (automatic cardioverter/defibrillator) present Status: Acute (3) Anemia Status: Acute (4) Atrial fibrillation with rapid ventricular response Status: Acute (5) Cardiomyopathy, nonischemic Status: Acute (6) Chronic renal failure Status: Acute (7) High risk for readmission Status: Acute Plan: Hopefully we can wean off of Levothroid today and probably transfer out of the ICU to selective care. Hopefully we can start increasing activity again. Check CBC and CMP in a.m. Time with Patient: Less than 30
[2016-11-18] MEDS: SODIUM CHLORIDE 0.9% 1,000 ML IV SCH (08:43)
[2016-11-18] MEDS: INSULIN LISPRO (humaLOG) 300 UNIT/3 ML VIAL SQ SCH ×4 (08:43→22:16)
--- NOTE | 2016-11-18 09:38 | P.PN ---
Subjective 81-year-old male patient who is known to me from previous hospital admissions. The patient has multiple medical problems and comorbidities. He is known to have COPD, congestion heart failure, chronic atrial fibrillation and chronic renal failure and he was recently started on dialysis 3 times a week. He is also known to have hypertension and hyperlipidemia and sacral decubitus ulceration. The patient was Hospital as because of altered mental status. Later on he was found to be hypotensive and septic. No cultures were positive for Klebsiella 2 and the patient had a wound cultures was positive for MRSA and pseudomonas aeruginosa in the urine. Note that along with hypotension, the patient became pressor dependent and this morning it is on levo fed at 6 mics per KG per minute. Infectious disease evaluated the patient and patient was started on a combination of Zosyn and vancomycin. This was initially antibiotic coverage and following that he got switched to Merrem and vancomycin. The patient has a right subclavian permacath that was placed during earliest admissions. This is a IJ catheter that was inserted on 2016. There is suspicion that the gram-negative septicemia the patient has is rated to a line infection. The patient will have dialysis today and following that the permacath will be removed. Repeat blood cultures will be taken at time of dialysis. White cell count is at 24,000. Renal function shows impairment a creatinine of 3.3. Rest of the electrolytes are within normal. The patient is a bicarb level of 15 and he has a component of mild anion gap metabolic acidosis with an anion gap of 22. As for the wound, this is a stage I ulcer and his sacrum. The chest x-ray at time of admission showed no acute abnormalities. The echocardiogram that was done in August showed moderate to severe tricuspid regurgitation, and ejection fraction of less than 20% consistent with severe cardiomyopathy. On 11/18/2016 I'm seeing this patient in follow-up. The patient was attempted to get a dialysis yesterday with ultrafiltration however he became hypotensive and the procedure had to be aborted after 1 hour. A total of 1.3 L of fluid was removed. A repeat dialysis will be done today through the permacath. The original plan was to remove the permacath and I'm expecting that this will be done today after he completes his dialysis. The patient is doing better compared to yesterday. The patient is also on few mics of levo fed and it is currently running at 3 mics per KG per minutes. He is on a combination of Merrem and vancomycin. No fever. No chills. Tolerating diet. He has a had a ladder scan yesterday that showed more than 400 mL of urine retention. He had a straight cath and a total of 200 mL's of urine output was evacuated from his bladder. He has no Clarke catheter for now. He is awake. He is alert. He is following commands. No fever. No other significant events over the past 24 hours. Objective - Vital Signs Vital signs: Vital Signs Temp 97.7 F 11/18/16 08:00 Pulse 85 11/18/16 08:00 Resp 27 H 11/18/16 08:00 BP 81/53 11/18/16 08:00 Pulse Ox 97 11/18/16 08:00 Intake & Output 11/17/16 11/18/16 11/18/16 18:59 06:59 18:59 Intake Total 1563.750 889.5 50 Output Total 0 1160 Balance 1563.750 -270.5 50 Weight 59.6 kg Intake: IV 200 ns 200 Intake, IV Titration 883.750 667.5 50 Amount Meropenem 1 gm In Sodium 100 Chloride 0.9% 100 ml @ 200 mls/hr IVPB Q24HR [facility] Rx#:[id number] Norepinephrin 4 mg-0.9% 183.750 67.5 Ns Pmx 4 mg In 250 ml @ 1 MCG/MIN 3.75 mls/hr IV . Q24H [facility] Rx#:[id number] Sodium Chloride 0.9% 1, 350 600 50 000 ml @ 50 mls/hr IV . Q20H [facility] Rx#:[id number] Vancomycin 1,250 mg In 250 Sodium Chloride 0.9% 250 ml @ 125 mls/hr IVPB ONCE ONE Rx#:[id number] Oral 480 222 Output: Urine 0 30 Other 1130 Other: Voiding Method Bedside Commode # Voids 1 # Bowel Movements 1 - Exam Head exam was generally normal. There was no scleral icterus or corneal arcus. Mucous membranes were moist.Neck was supple and without jugular venous distension, thyromegaly, or carotid bruits. Carotids were easily palpable bilaterally. There was no adenopathy. The patient has a right IJ permacath exit site is essentially clean and intact at this point. Lung sounds are diminished bilaterally otherwise clear. Heart sounds are regular, positive S1- S2, no cervical murmurs appreciated. The patient has an AICD over the left anterior chest area and the pocket is clean.Abdominal exam revealed normal bowel sounds. The abdomen was soft, non-tender, and without masses, organomegaly , or appreciable enlargement of the abdominal aorta.Examination of the extremities revealed easily palpable radial, femoral and pedal pulses. There was no cyanosis, clubbing or edema. Her diminished pulses in lower extremities bilaterally. - Labs CBC & Chem 7: 11/18/16 05:22 11/18/16 05:22 Labs: Abnormal Lab Results - Last 24 Hours (Table) 11/17/16 11/17/16 11/17/16 Range/Units 12:08 17:55 21:23 WBC (3.8-10.6) k/uL RBC (4.30-5.90) m/uL Hgb (13.0-17.5) gm/dL Hct (39.0-53.0) % MCHC (31.0-37.0) g/dL RDW (11.5-15.5) % Neutrophils # (1.3-7.7) k/uL Carbon Dioxide (22-30) mmol/L BUN (9-20) mg/dL Creatinine (0.66-1.25) mg/dL Glucose (74-99) mg/dL POC Glucose (mg/dL) 194 H 123 H 145 H (75-99) mg/dL Calcium (8.4-10.2) mg/dL Total Bilirubin (0.2-1.3) mg/dL AST (17-59) U/L ALT (21-72) U/L Alkaline Phosphatase (38-126) U/L Total Protein (6.3-8.2) g/dL Albumin (3.5-5.0) g/dL 11/18/16 11/18/16 11/18/16 Range/Units 00:15 05:22 05:22 WBC 15.9 H (3.8-10.6) k/uL RBC 3.22 L (4.30-5.90) m/uL Hgb 9.8 L (13.0-17.5) gm/dL Hct 32.2 L (39.0-53.0) % MCHC 30.6 L (31.0-37.0) g/dL RDW 17.8 H (11.5-15.5) % Neutrophils # 14.1 H (1.3-7.7) k/uL Carbon Dioxide 20 L (22-30) mmol/L BUN 23 H 25 H (9-20) mg/dL Creatinine 2.00 H 2.20 H (0.66-1.25) mg/dL Glucose 162 H 189 H (74-99) mg/dL POC Glucose (mg/dL) (75-99) mg/dL Calcium 8.2 L 8.2 L (8.4-10.2) mg/dL Total Bilirubin 1.6 H (0.2-1.3) mg/dL AST 232 H (17-59) U/L ALT 450 H (21-72) U/L Alkaline Phosphatase 205 H (38-126) U/L Total Protein 5.8 L (6.3-8.2) g/dL Albumin 2.8 L (3.5-5.0) g/dL 11/18/16 Range/Units 07:19 WBC (3.8-10.6) k/uL RBC (4.30-5.90) m/uL Hgb (13.0-17.5) gm/dL Hct (39.0-53.0) % MCHC (31.0-37.0) g/dL RDW (11.5-15.5) % Neutrophils # (1.3-7.7) k/uL Carbon Dioxide (22-30) mmol/L BUN (9-20) mg/dL Creatinine (0.66-1.25) mg/dL Glucose (74-99) mg/dL POC Glucose (mg/dL) 208 H (75-99) mg/dL Calcium (8.4-10.2) mg/dL Total Bilirubin (0.2-1.3) mg/dL AST (17-59) U/L ALT (21-72) U/L Alkaline Phosphatase (38-126) U/L Total Protein (6.3-8.2) g/dL Albumin (3.5-5.0) g/dL Microbiology - Last 24 Hours (Table) 11/13/16 17:16 Blood Culture Gram Stain - Final Blood Blood Culture - Final Klebsiella oxytoca Assessment and Plan Plan: Assessment 1 septic shock with gram-negative bacteria and the patient has a penicillin pneumonia in 2 separate blood cultures. Rule out line sepsis from a permacath was inserted on 09/03/2016 for dialysis. 2 hypotension secondary to above, currently on a combination of Merrem, vancomycin and norepinephrine infusion 3 altered mental status improving 4 CHF with ejection fraction of less than 20% 5 chronic renal failure with end-stage renal disease currently on hemodialysis 3 times a week 6 chronic anemia 7 chronic atrial fibrillation 8 stage I coccyx wound with MRSA growth currently on vancomycin 9 pseudomonal urine checked infection 10 insulin-dependent diabetes mellitus type 2 11 skin cancer that was resected 12 AICD placement for severe cardiomyopathy 13 chronic atrial fibrillation maintained on long-term anticoagulation, on Eliquis 14 hyperlipidemia 15 BPH 16 previous hospitalization for an influenza pneumonia 17 very poor baseline performance and functional status Plan Continue dialysis for this morning. Monitored hemodynamics. Wean off levo fed as tolerated. We'll discuss the case and ID. The original plan was to remove the permacath and give the patient antibiotic treatment and his gram-negative bacteremia is fully recovered. Clinically improved. We will suggest repeating another blood culture to assess for clearing of the bacteremia. Continue same antibiotic coverage. We'll continue to follow.
[2016-11-18] MEDS: NOREPINEPHRIN 4 MG-0.9% NS PMX 4 MG/250 ML ML IV SCH (10:03)
--- NOTE | 2016-11-18 10:42 | P.PN ---
Subjective Patient is seen in follow-up for dialysis-dependent acute kidney injury due to cardiorenal syndrome. Patient is currently being treated for gram-negative bacteremia with blood cultures positive for Klebsiella. His urine cultures positive for Pseudomonas and his wound cultures positive for MRSA. He is currently undergoing hemodialysis. Denies any chest pain or shortness of breath. No vomiting or diarrhea. Oral intake is fair. He is still requiring 3 mics of levofed. Vital signs are stable. General: The patient appeared well nourished and normally developed. HEENT: Head exam is unremarkable. Neck is without jugular venous distension. LUNGS: Lungs are clear to auscultation and percussion. Breath sounds decreased. HEART: Rate and Rhythm are regular. First and second heart sounds normal. No murmurs, rubs or gallops. ABDOMEN: Abdominal exam reveals normal bowel sounds. Non-tender and non- distended. No evidence of peritonitis. EXTREMITITES: 1+ edema. Objective - Vital Signs Vital signs: Vital Signs Temp 97.7 F 11/18/16 08:00 Pulse 66 11/18/16 10:00 Resp 10 L 11/18/16 10:00 BP 88/54 11/18/16 10:00 Pulse Ox 100 11/18/16 10:00 Intake & Output 11/17/16 11/18/16 11/18/16 18:59 06:59 18:59 Intake Total 1563.750 925.75 200 Output Total 0 1160 Balance 1563.750 -234.25 200 Weight 59.6 kg 59.6 kg Intake: IV 200 ns 200 Intake, IV Titration 883.750 703.75 200 Amount Meropenem 1 gm In Sodium 100 Chloride 0.9% 100 ml @ 200 mls/hr IVPB Q24HR [facility] Rx#:[id number] Norepinephrin 4 mg-0.9% 183.750 103.75 Ns Pmx 4 mg In 250 ml @ 1 MCG/MIN 3.75 mls/hr IV . Q24H [facility] Rx#:[id number] Sodium Chloride 0.9% 1, 350 600 200 000 ml @ 50 mls/hr IV . Q20H [facility] Rx#:[id number] Vancomycin 1,250 mg In 250 Sodium Chloride 0.9% 250 ml @ 125 mls/hr IVPB ONCE ONE Rx#:[id number] Oral 480 222 Output: Urine 0 30 Other 1130 Other: Voiding Method Bedside Commode # Voids 1 # Bowel Movements 1 - Labs CBC & Chem 7: 11/18/16 05:22 11/18/16 05:22 Labs: Abnormal Lab Results - Last 24 Hours (Table) 11/17/16 11/17/16 11/17/16 Range/Units 12:08 17:55 21:23 WBC (3.8-10.6) k/uL RBC (4.30-5.90) m/uL Hgb (13.0-17.5) gm/dL Hct (39.0-53.0) % MCHC (31.0-37.0) g/dL RDW (11.5-15.5) % Neutrophils # (1.3-7.7) k/uL Carbon Dioxide (22-30) mmol/L BUN (9-20) mg/dL Creatinine (0.66-1.25) mg/dL Glucose (74-99) mg/dL POC Glucose (mg/dL) 194 H 123 H 145 H (75-99) mg/dL Calcium (8.4-10.2) mg/dL Total Bilirubin (0.2-1.3) mg/dL AST (17-59) U/L ALT (21-72) U/L Alkaline Phosphatase (38-126) U/L Total Protein (6.3-8.2) g/dL Albumin (3.5-5.0) g/dL 11/18/16 11/18/16 11/18/16 Range/Units 00:15 05:22 05:22 WBC 15.9 H (3.8-10.6) k/uL RBC 3.22 L (4.30-5.90) m/uL Hgb 9.8 L (13.0-17.5) gm/dL Hct 32.2 L (39.0-53.0) % MCHC 30.6 L (31.0-37.0) g/dL RDW 17.8 H (11.5-15.5) % Neutrophils # 14.1 H (1.3-7.7) k/uL Carbon Dioxide 20 L (22-30) mmol/L BUN 23 H 25 H (9-20) mg/dL Creatinine 2.00 H 2.20 H (0.66-1.25) mg/dL Glucose 162 H 189 H (74-99) mg/dL POC Glucose (mg/dL) (75-99) mg/dL Calcium 8.2 L 8.2 L (8.4-10.2) mg/dL Total Bilirubin 1.6 H (0.2-1.3) mg/dL AST 232 H (17-59) U/L ALT 450 H (21-72) U/L Alkaline Phosphatase 205 H (38-126) U/L Total Protein 5.8 L (6.3-8.2) g/dL Albumin 2.8 L (3.5-5.0) g/dL 11/18/16 Range/Units 07:19 WBC (3.8-10.6) k/uL RBC (4.30-5.90) m/uL Hgb (13.0-17.5) gm/dL Hct (39.0-53.0) % MCHC (31.0-37.0) g/dL RDW (11.5-15.5) % Neutrophils # (1.3-7.7) k/uL Carbon Dioxide (22-30) mmol/L BUN (9-20) mg/dL Creatinine (0.66-1.25) mg/dL Glucose (74-99) mg/dL POC Glucose (mg/dL) 208 H (75-99) mg/dL Calcium (8.4-10.2) mg/dL Total Bilirubin (0.2-1.3) mg/dL AST (17-59) U/L ALT (21-72) U/L Alkaline Phosphatase (38-126) U/L Total Protein (6.3-8.2) g/dL Albumin (3.5-5.0) g/dL Microbiology - Last 24 Hours (Table) 11/13/16 17:16 Blood Culture Gram Stain - Final Blood Blood Culture - Final Klebsiella oxytoca Assessment and Plan Plan: Assessment: #1. Dialysis-dependent acute kidney injury secondary to cardiorenal syndrome. #2. Klebsiella oxytoca bacteremia with permacath are being the likely source of infection. #3. Urinary tract infection with urine culture positive for Pseudomonas. #4. Sacral decubitus wound culture positive for MRSA. #5. Hypotension maintained on Midodrine as well as levofed. #6. Metabolic acidosis secondary to acute kidney injury. #7. Anemia. Hemoglobin 9.8. Plan: Currently undergoing hemodialysis with goal 2 L ultrafiltration. Perma-catheter to be discontinued after dialysis today and the tip to be sent for culture. Monitor blood cultures. Maintain IV Lasix. Hep-Lock IV fluids. Wean vasopressors. Start Aranesp. Start oral sodium bicarbonate supplementation. Monitor renal function and urine output closely and will assess the need for renal replacement therapy on a day-to-day basis.
[2016-11-18] MEDS ORDERED: HEPARIN SODIUM,PORCINE 5,000 UNIT/ML 1 ML VIAL ONE (11:45)
[2016-11-18 11:54] LABS: Glucose,Whole Blood 137 mg/dL (75-99)
[2016-11-18] MEDS: DORZOLAMIDE HCL 2% DROPS 10 ML BTL BOTH EYES SCH ×2 (12:34→16:00)
[2016-11-18] MEDS: DOCUSATE 100 MG CAP PO SCH ×2 (12:34→16:00)
[2016-11-18] MEDS: TAMSULOSIN 0.4 MG CAP.ER.24H PO SCH (12:34)
[2016-11-18] MEDS: MEGESTROL 400 MG/10 ML CUP PO SCH (12:35)
[2016-11-18] MEDS: DONEPEZIL 10 MG TAB PO SCH (12:35)
[2016-11-18] MEDS: MEROPENEM 1 GM in SODIUM CHLORIDE 0.9% 100 ML IVPB SCH (12:36)
[2016-11-18] MEDS: FUROSEMIDE 10 MG/ML 10 ML VIAL IV SCH ×2 (12:36→22:16)
[2016-11-18] MEDS: DARBEPOETIN ALFA 40 MCG/0.4 ML SYRINGE SQ SCH (12:36)
[2016-11-18] MEDS: SODIUM BICARBONATE TAB 650 MG TAB PO SCH ×2 (13:00→22:17)
--- NOTE | 2016-11-18 13:19 | CONS ---
DATE OF CONSULTATION: Original dictation was done on November 16 and redictation is being done today. HISTORY OF PRESENT ILLNESS: Mr. Qureshi is an 81-year-old gentleman with a history of hypertensive cardiovascular disease, cardiomyopathy, status post AICD placement who was admitted to the hospital with complaints of fever and also sepsis. Apparently blood cultures were obtained at the dialysis center was found to be positive for gram-negative bacilli. Patient had elevated white count on admission. The patient has been on antibiotic. Patient's blood pressure today was running about 60 systolic. The patient has been maintained on dopamine for blood pressure support. Actually the patient is on Levophed. The patient seems to be alert, does not appear to be in acute distress. He denies any chest pain. Does complain of chronic shortness of breath but does not appear to be in any acute distress. No abdominal pain or diarrhea. Past medical history is significant for atrial fibrillation, CHF, diabetes mellitus, hyperlipidemia, hypertension, chronic renal disease on dialysis, status post AICD placement. His medications prior to admission included: 1. Levemir. 2. Mevacor 40 mg. 3. Apixaban 2.5 milligrams b.i.d. 4. Isosorbide 10 mg b.i.d. 5. Rivastigmine 1.5 mg p.o. b.i.d. 6. Lasix 40 mg daily. 7. Amiodarone 200 mg p.o. b.i.d. 8. Megace 40 mg p.o. daily. 9. Colace. REVIEW OF SYSTEMS: Patient has cardiomyopathy, CHF, AICD placement done in 2011, has had cataract removal, skin cancer and no history of diverticulitis, No history of strokes. Physical examination at this time reveals an elderly gentleman who is alert, oriented appears to be in mild respiratory distress. His blood pressure is running about 68/50, pulse rate 65. Neck is supple. No significant rhonchi, lungs unlabored breathing, clear to auscultation. HEART: S1 and S2 normal. Abdomen is soft. Extremities, no edema. Lab values showed hemoglobin of 10.4. White count is 24,000. BUN is 28, creatinine 2.4. FINAL IMPRESSION: 1. Gram-negative sepsis. 2. Hypertension. 3. Cardiomyopathy and congestive heart failure. 4. AICD placement. 5. Diabetes mellitus. PLAN: Continue with pressor support and also antibiotics. From cardiac standpoint, patient seems to be stable. Further recommendations depending upon the clinical course. Prognosis is guarded.
[2016-11-18] MEDS ORDERED: VANCOMYCIN 1,250 MG in SODIUM CHLORIDE 0.9% 250 ML IVPB ONE (15:30)
[2016-11-18 17:01] LABS: Glucose,Whole Blood 163 mg/dL (75-99)
[2016-11-18] MEDS ORDERED: TERBUTALINE FOR EXTRAVASATION 1 MG/ML VIAL SQ STA (21:04)
[2016-11-18 21:36] LABS: Glucose,Whole Blood 235 mg/dL (75-99)
[2016-11-18] MEDS: ATORVASTATIN 10 MG TAB PO SCH (22:16)
[2016-11-18] MEDS: FOLIC ACID-VIT B COMPLEX-VIT C 1 CAP PO SCH (22:16)
--- NOTE | 2016-11-18 23:06 | P.PN ---
Subjective Principal diagnosis: Sepsis This is an 81-year-old male. He had a hospitalization in August 2016 for acute kidney injury and was started on hemodialysis Thursday, , Thursday. He was seen on that hospitalization by Dr. Mc from infectious disease for Pseudomonas tracheobronchitis or pneumonia. His most recent hospitalization from October 14 through October 18 which time he was treated for urinary tract infection with enterococcus for which patient was treated on ampicillin and was discharged on 7 days as well as Clarke catheter in place. Patient went to [facility] and was discharged from there on November 05. Patient states he was doing well and using a walker and gaining his strength back. He has been following with hemodialysis center and they had noted that he had a fever and blood cultures were obtained on 11/11 which Klebsiella oxytoca, sensitivity not available. Patient was sent into [facility] emergency center for evaluation and found to be tachycardic, hypotensive with leukocytosis initially of 31.4 area and platelet count 143 and he does have history of mild thrombocytopenia. Hemoglobin is 9.3. BUN 23 and creatinine 2.04. Albumin 3. Urinalysis was turbid, leukoesterase large, blood moderate, WBCs greater than 182. Bacteria moderate. 2 blood cultures have status received. Urine culture is in process. There are consult in place for Dr. Ibrahim for intensive care management and nephrology. Chest x-ray is showing no acute pulmonary disease. Patient is also known to have a decubitus ulcer to the coccyx stage II. Patient had Clarke catheter removed on November 05. His most recent urine culture on October 14 positive for Enterococcus faecalis (not VRE) and Monet. Patient also has significant history of chronic atrial fibrillation on amiodarone and eliquis as well as chronic systolic heart failure and nonischemic cardiomyopathy with AICD. Patient remains quite ill. He said difficulty with the Klebsiella sepsis. His remaining hypotensive. The case is discussed with vascular surgery and nephrology. Objective - Vital Signs Vital signs: Vital Signs Temp 97.5 F L 11/18/16 16:00 Pulse 75 11/18/16 19:00 Resp 25 H 11/18/16 19:00 BP 97/55 11/18/16 19:00 Pulse Ox 99 11/18/16 19:00 Intake & Output 11/18/16 11/18/16 11/19/16 06:59 18:59 06:59 Intake Total 925.75 694.25 199.625 Output Total 1160 2000 Balance -234.25 -1306.75 199.625 Weight 59.6 kg 59.6 kg Intake: Intake, IV Titration 703.75 694.25 199.625 Amount Meropenem 1 gm In Sodium 100 Chloride 0.9% 100 ml @ 200 mls/hr IVPB Q24HR [facility] Rx#:[id number] Norepinephrin 4 mg-0.9% 103.75 74.25 149.625 Ns Pmx 4 mg In 250 ml @ 1 MCG/MIN 3.75 mls/hr IV . Q24H [facility] Rx#:[id number] Sodium Chloride 0.9% 1, 600 520 50 000 ml @ 50 mls/hr IV . Q20H [facility] Rx#:[id number] Oral 222 Output: Urine 30 0 Stool 1 Other 1130 2000 Other: Voiding Method Bedside Commode # Bowel Movements 1 - Exam Gen: This is an 81-year-old male. He is seen in ICU bed and appears to be comfortable and in no acute distress. No respiratory distress noted. HEENT: Head is atraumatic, normocephalic. Pupils equal, round. Sclerae is anicteric. Oral mucous membranes are slightly dry. NECK: Supple. No JVD. No lymphadenopathy. No thyromegaly. The right IJ catheter is without tenderness or expressible purulence LUNGS: Clear to auscultation. No wheezes or rhonchi. No intercostal retractions. HEART: Irregular rate and rhythm. No murmur. Dialysis catheter to the right upper anterior chest wall without tenderness. ABDOMEN: Soft. Bowel sounds are present. No masses. No tenderness. EXTREMITIES: Bilateral pedal edema more so on the right. Dorsalis pedis is weak bilaterally. NEUROLOGICAL: Patient is awake, alert and oriented x3. Cranial nerves 2 through 12 are grossly intact. - Labs CBC & Chem 7: 11/18/16 05:22 11/18/16 16:42 Labs: Abnormal Lab Results - Last 24 Hours (Table) 11/18/16 11/18/16 11/18/16 Range/Units 00:15 05:22 05:22 WBC 15.9 H (3.8-10.6) k/uL RBC 3.22 L (4.30-5.90) m/uL Hgb 9.8 L (13.0-17.5) gm/dL Hct 32.2 L (39.0-53.0) % MCHC 30.6 L (31.0-37.0) g/dL RDW 17.8 H (11.5-15.5) % Neutrophils # 14.1 H (1.3-7.7) k/uL Carbon Dioxide 20 L (22-30) mmol/L BUN 23 H 25 H (9-20) mg/dL Creatinine 2.00 H 2.20 H (0.66-1.25) mg/dL Glucose 162 H 189 H (74-99) mg/dL POC Glucose (mg/dL) (75-99) mg/dL Calcium 8.2 L 8.2 L (8.4-10.2) mg/dL Total Bilirubin 1.6 H (0.2-1.3) mg/dL AST 232 H (17-59) U/L ALT 450 H (21-72) U/L Alkaline Phosphatase 205 H (38-126) U/L Total Protein 5.8 L (6.3-8.2) g/dL Albumin 2.8 L (3.5-5.0) g/dL 11/18/16 11/18/16 11/18/16 Range/Units 07:19 11:52 16:58 WBC (3.8-10.6) k/uL RBC (4.30-5.90) m/uL Hgb (13.0-17.5) gm/dL Hct (39.0-53.0) % MCHC (31.0-37.0) g/dL RDW (11.5-15.5) % Neutrophils # (1.3-7.7) k/uL Carbon Dioxide (22-30) mmol/L BUN (9-20) mg/dL Creatinine (0.66-1.25) mg/dL Glucose (74-99) mg/dL POC Glucose (mg/dL) 208 H 137 H 163 H (75-99) mg/dL Calcium (8.4-10.2) mg/dL Total Bilirubin (0.2-1.3) mg/dL AST (17-59) U/L ALT (21-72) U/L Alkaline Phosphatase (38-126) U/L Total Protein (6.3-8.2) g/dL Albumin (3.5-5.0) g/dL 11/18/16 Range/Units 21:35 WBC (3.8-10.6) k/uL RBC (4.30-5.90) m/uL Hgb (13.0-17.5) gm/dL Hct (39.0-53.0) % MCHC (31.0-37.0) g/dL RDW (11.5-15.5) % Neutrophils # (1.3-7.7) k/uL Carbon Dioxide (22-30) mmol/L BUN (9-20) mg/dL Creatinine (0.66-1.25) mg/dL Glucose (74-99) mg/dL POC Glucose (mg/dL) 235 H (75-99) mg/dL Calcium (8.4-10.2) mg/dL Total Bilirubin (0.2-1.3) mg/dL AST (17-59) U/L ALT (21-72) U/L Alkaline Phosphatase (38-126) U/L Total Protein (6.3-8.2) g/dL Albumin (3.5-5.0) g/dL Microbiology - Last 24 Hours (Table) 11/17/16 16:30 Blood Culture - Preliminary Blood No Growth after 24 hours 11/17/16 11:55 Blood Culture - Preliminary Blood No Growth after 24 hours 11/17/16 12:03 Blood Culture - Preliminary Blood No Growth after 24 hours Laboratory Results WBC 15.9 k/uL (3.8-10.6) H 11/18/16 05:22 RBC 3.22 m/uL (4.30-5.90) L 11/18/16 05:22 Hgb 9.8 gm/dL (13.0-17.5) L 11/18/16 05:22 Hct 32.2 % (39.0-53.0) L 11/18/16 05:22 MCV 100.0 fL (80.0-100.0) 11/18/16 05:22 MCH 30.6 pg (25.0-35.0) 11/18/16 05:22 MCHC 30.6 g/dL (31.0-37.0) L 11/18/16 05:22 RDW 17.8 % (11.5-15.5) H 11/18/16 05:22 Plt Count 158 k/uL (150-450) 11/18/16 05:22 Neutrophils % 89 % 11/18/16 05:22 Neutrophils % (Manual) 91.0 % 11/13/16 17:16 Band Neutrophils % 5.0 % 11/13/16 17:16 Lymphocytes % 6 % 11/18/16 05:22 Lymphocytes % (Manual) 2.5 % 11/13/16 17:16 Monocytes % 4 % 11/18/16 05:22 Monocytes % (Manual) 1.5 % 11/13/16 17:16 Eosinophils % 0 % 11/18/16 05:22 Basophils % 0 % 11/18/16 05:22 Neutrophils # 14.1 k/uL (1.3-7.7) H 11/18/16 05:22 Neutrophils # (Manual) 30.1 k/uL (1.3-7.7) H 11/13/16 17:16 Lymphocytes # 1.0 k/uL (1.0-4.8) 11/18/16 05:22 Lymphocytes # (Manual) 0.8 k/uL (1.0-4.8) L 11/13/16 17:16 Monocytes # 0.6 k/uL (0-1.0) 11/18/16 05:22 Monocytes # (Manual) 0.5 k/uL (0-1.0) 11/13/16 17:16 Eosinophils # 0.1 k/uL (0-0.7) 11/18/16 05:22 Basophils # 0.0 k/uL (0-0.2) 11/18/16 05:22 Nucleated RBCs 0 /100 WBC (0-0) 11/13/16 17:16 Manual Slide Review Performed 11/13/16 17:16 Polychromasia Present 11/13/16 17:16 Hypochromasia Marked 11/18/16 05:22 Anisocytosis Slight 11/18/16 05:22 Anisocytosis (manual) Present 11/13/16 17:16 Macrocytosis Slight 11/18/16 05:22 PT 12.6 sec (9.0-12.0) H 11/13/16 17:16 INR 1.3 (<1.1) 11/13/16 17:16 APTT 22.1 sec (22.0-30.0) 11/13/16 17:16 Sodium 138 mmol/L (137-145) 11/18/16 05:22 Potassium 4.0 mmol/L (3.5-5.1) 11/18/16 16:42 Chloride 102 mmol/L (98-107) 11/18/16 05:22 Carbon Dioxide 20 mmol/L (22-30) L 11/18/16 05:22 Anion Gap 16 mmol/L 11/18/16 05:22 BUN 25 mg/dL (9-20) H 11/18/16 05:22 Creatinine 2.20 mg/dL (0.66-1.25) H 11/18/16 05:22 Est GFR (MDRD) Af Amer 35 (>60 ml/min/1.73 sqM) 11/18/16 05:22 Est GFR (MDRD) Non-Af 29 (>60 ml/min/1.73 sqM) 11/18/16 05:22 Glucose 189 mg/dL (74-99) H 11/18/16 05:22 POC Glucose (mg/dL) 235 mg/dL (75-99) H 11/18/16 21:35 POC Glu Plug Maker ID Coco Berman 11/18/16 21:[address] Glu mg/dL 91 mg/dL 11/14/16 04:31 Hemoglobin A1c 4.8 % (4.2-6.1) 11/14/16 04:31 Plasma Lactic Acid Chase 1.9 mmol/L (0.7-2.0) 11/14/16 08:50 Calcium 8.2 mg/dL (8.4-10.2) L 11/18/16 05:22 Phosphorus 4.5 mg/dL (2.5-4.5) 11/18/16 05:22 Magnesium 2.1 mg/dL (1.6-2.3) 11/18/16 05:22 Total Bilirubin 1.6 mg/dL (0.2-1.3) H 11/18/16 05:22 AST 232 U/L (17-59) H 11/18/16 05:22 ALT 450 U/L (21-72) H 11/18/16 05:22 Alkaline Phosphatase 205 U/L (38-126) H 11/18/16 05:22 Total Creatine Kinase 22 U/L (55-170) L 11/13/16 17:16 CK-MB (CK-2) 1.6 ng/mL (0.0-2.4) 11/13/16 17:16 CK-MB (CK-2) Rel Index 7.3 11/13/16 17:16 Troponin I 0.028 ng/mL (0.000-0.034) 11/13/16 17:16 Total Protein 5.8 g/dL (6.3-8.2) L 11/18/16 05:22 Albumin 2.8 g/dL (3.5-5.0) L 11/18/16 05:22 Cortisol 61 ug/dL 11/16/16 14:45 Urine Color [place] 11/13/16 18:50 Urine Appearance Turbid (Clear) 11/13/16 18:50 Urine pH 5.5 (5.0-8.0) 11/13/16 18:50 Ur Specific [place] 1.017 (1.001-1.035) 11/13/16 18:50 Urine Protein 2+ (Negative) H 11/13/16 18:50 Urine Glucose (UA) Negative (Negative) 11/13/16 18:50 Urine Ketones Negative (Negative) 11/13/16 18:50 Urine Blood Moderate (Negative) H 11/13/16 18:50 Urine Nitrite Negative (Negative) 11/13/16 18:50 Urine Bilirubin 1+ (Negative) H 11/13/16 18:50 Urine Urobilinogen 4.0 mg/dL (<2.0) 11/13/16 18:50 Ur Leukocyte Esterase Large (Negative) H 11/13/16 18:50 Urine RBC 16 /hpf (0-5) H 11/13/16 18:50 Urine WBC >182 /hpf (0-5) H 11/13/16 18:50 Urine WBC Clumps Many /hpf (None) H 11/13/16 18:50 Urine Bacteria Moderate /hpf (None) H 11/13/16 18:50 Hyaline Casts 8 /lpf (0-2) H 11/13/16 18:50 Random Vancomycin 14.8 ug/mL 11/18/16 05:22 Microbiology 11/17/16 16:30 Blood Blood Culture - Preliminary No Growth after 24 hours 11/17/16 11:55 Blood Blood Culture - Preliminary No Growth after 24 hours 11/17/16 12:03 Blood Blood Culture - Preliminary No Growth after 24 hours 11/13/16 17:16 Blood Blood Culture Gram Stain - Final 11/13/16 17:16 Blood Blood Culture - Final Klebsiella oxytoca 11/13/16 21:00 Blood Blood Culture Gram Stain - Final 11/13/16 21:00 Blood Blood Culture - Final Klebsiella oxytoca 11/13/16 23:09 Other - Other Gram Stain - Preliminary 11/13/16 23:09 Other - Other Wound Culture - Final Methicillin resist S. aureus 11/13/16 18:50 Urine,Catheterized Urine Culture - Final Pseudomonas aeruginosa 11/13/16 17:16 Blood Blood Culture - Final 11/13/16 21:00 Blood Blood Culture - Final Assessment and Plan (1) Fever Status: Acute (2) Sepsis Narrative/Plan: 81-year-old male has history of recent profound illness with resultant end-stage renal disease placed on hemodialysis. He now developed evidence of Klebsiella oxytoca bacteremia. It did persist over a day and now seems to be doing better at this time. However given antigram negative that was not present in his urine. The urine had pseudomonas aeruginosa. With this disconnect concern would be to the potential that there is a catheter-related infection and consequently vascular surgery remove the catheter will be dialysis free for a few days and then the catheter be replaced at that time if we have evidence of ongoing negative blood cultures. As noted the case was discussed with vascular surgery and nephrology. Patient fortunately is feeling better at this time. Continue the Merrem for the ESBL and vancomycin for the isolated MRSA.. After catheter removal plan 2 weeks of antibiotic therapy. Status: Acute
[2016-11-19] MEDS: NOREPINEPHRIN 4 MG-0.9% NS PMX 4 MG/250 ML ML IV SCH (00:19)
[2016-11-19] MEDS: PANTOPRAZOLE 40 MG TABLET PO SCH (05:23)
[2016-11-19] MEDS: MIDODRINE 5 MG TAB PO SCH ×3 (05:23→21:11)
[2016-11-19 05:29] LABS: Anisocytosis Slight; CHCM 29.8; HDW 3.23; HGB 9.5 gm/dL (13.0-17.5); Hypochromasia Marked; MCH 30.9 pg (25.0-35.0); MCHC 30.5 g/dL (31.0-37.0); MCV 101.4 fL (80.0-100.0); Macrocytosis Moderate; Mean Platelet Volume 7.9; RBC 3.06 m/uL (4.30-5.90); RDW 17.6 % (11.5-15.5); WBC 10.1 k/uL (3.8-10.6)
[2016-11-19 05:40] LABS: Calcium 8.1 mg/dL (8.4-10.2); Magnesium 1.9 mg/dL (1.6-2.3); Phosphorous 2.9 mg/dL (2.5-4.5); Potassium 3.9 mmol/L (3.5-5.1); Total Bilirubin 1.6 mg/dL (0.2-1.3); Total Protein 5.6 g/dL (6.3-8.2)
[2016-11-19] MEDS ORDERED: Magnesium Replacement Protocol 1 EACH MISC MISCELLANE PRN (05:58)
[2016-11-19] MEDS ORDERED: POTASSIUM CHLORIDE ER 20 MEQ TAB.ER PO SCH (06:00)
[2016-11-19] MEDS: MAGNESIUM SULFATE-D5W PMX 1 GM in DEXTROSE/WATER 1 100ML.BAG IVPB SCH ×2 (06:59→08:23)
--- NOTE | 2016-11-19 07:42 | P.PN ---
Subjective Principal diagnosis: Hypertension/renal failure. This is a continue progress note 81-year-old white male with known history of sepsis and edema. We have been having difficulty taking his normal appropriate dialyze fluid secondary to hypotension. Appreciate consultants input. He is currently admitted to drain. He is having elements of urinary retention. I'm somewhat leery of giving him drugs like Flomax secondary to possible hypotension. We'll continue straight cathing and bladder scanning the patient. Objective - Vital Signs Vital signs: Vital Signs Temp 97.4 F L 11/19/16 04:00 Pulse 73 11/19/16 07:00 Resp 13 11/19/16 07:00 BP 93/59 11/19/16 07:00 Pulse Ox 98 11/19/16 07:00 Intake & Output 11/18/16 11/19/16 11/19/16 18:59 06:59 18:59 Intake Total 694.25 857.813 128.938 Output Total 2000 07 Balance -1306.75 856.813 128.938 Weight 59.6 kg 61.8 kg Intake: Intake, IV Titration 694.25 377.813 128.938 Amount Magnesium Sulfate-D5w Pmx 100 1 gm In Dextrose/Water 1 100ml.bag @ 100 mls/hr IVPB Q1H [facility] Rx#: [id number] Meropenem 1 gm In Sodium 100 Chloride 0.9% 100 ml @ 200 mls/hr IVPB Q24HR [facility] Rx#:[id number] Norepinephrin 4 mg-0.9% 74.25 217.813 18.938 Ns Pmx 4 mg In 250 ml @ 1 MCG/MIN 3.75 mls/hr IV . Q24H [facility] Rx#:[id number] Sodium Chloride 0.9% 1, 520 160 10 000 ml @ 50 mls/hr IV . Q20H [facility] Rx#:[id number] Oral 480 Output: Urine 0 Stool 1 1 Other 2000 Other: Voiding Method Bedside Commode Bedside Commode # Voids 1 # Bowel Movements 1 - Constitutional General appearance: Present: thin - EENT Eyes: Absent: abnormal pupil - Cardiovascular Rhythm: irregularly irregular Heart sounds: normal: S1, S2 - Gastrointestinal General gastrointestinal: Present: soft. Absent: tenderness - Musculoskeletal Musculoskeletal: Present: generalized weakness - Psychiatric Psychiatric: Present: A&O x's 3, appropriate affect - Labs CBC & Chem 7: 11/19/16 04:59 11/19/16 04:59 Labs: Abnormal Lab Results - Last 24 Hours (Table) 11/18/16 11/18/16 11/18/16 Range/Units 11:52 16:58 21:35 RBC (4.30-5.90) m/uL Hgb (13.0-17.5) gm/dL Hct (39.0-53.0) % MCV (80.0-100.0) fL MCHC (31.0-37.0) g/dL RDW (11.5-15.5) % Plt Count (150-450) k/uL Creatinine (0.66-1.25) mg/dL Glucose (74-99) mg/dL POC Glucose (mg/dL) 137 H 163 H 235 H (75-99) mg/dL Calcium (8.4-10.2) mg/dL Total Bilirubin (0.2-1.3) mg/dL AST (17-59) U/L ALT (21-72) U/L Alkaline Phosphatase (38-126) U/L Total Protein (6.3-8.2) g/dL Albumin (3.5-5.0) g/dL 11/19/16 11/19/16 Range/Units 04:59 04:59 RBC 3.06 L (4.30-5.90) m/uL Hgb 9.5 L (13.0-17.5) gm/dL Hct 31.0 L (39.0-53.0) % MCV 101.4 H (80.0-100.0) fL MCHC 30.5 L (31.0-37.0) g/dL RDW 17.6 H (11.5-15.5) % Plt Count 129 L (150-450) k/uL Creatinine 1.90 H (0.66-1.25) mg/dL Glucose 211 H (74-99) mg/dL POC Glucose (mg/dL) (75-99) mg/dL Calcium 8.1 L (8.4-10.2) mg/dL Total Bilirubin 1.6 H (0.2-1.3) mg/dL AST 140 H (17-59) U/L ALT 359 H (21-72) U/L Alkaline Phosphatase 192 H (38-126) U/L Total Protein 5.6 L (6.3-8.2) g/dL Albumin 2.6 L (3.5-5.0) g/dL Microbiology - Last 24 Hours (Table) 11/17/16 16:30 Blood Culture - Preliminary Blood No Growth after 24 hours 11/17/16 11:55 Blood Culture - Preliminary Blood No Growth after 24 hours 11/17/16 12:03 Blood Culture - Preliminary Blood No Growth after 24 hours Assessment and Plan (1) Sepsis Status: Acute (2) AICD (automatic cardioverter/defibrillator) present Status: Acute (3) Anemia Status: Acute (4) Atrial fibrillation with rapid ventricular response Status: Acute (5) Cardiomyopathy, nonischemic Status: Acute (6) Chronic renal failure Status: Acute (7) High risk for readmission Status: Acute Plan: The plan would be to hopefully discontinue levothyroid see that we can transfer him out of the ICU and restart rehabilitation. Check CBC and CP in a.m. Prognosis is guarded secondary to his multiple comorbidities per See orders otherwise.
[2016-11-19 07:51] LABS: Glucose,Whole Blood 221 mg/dL (75-99)
[2016-11-19] MEDS: INSULIN LISPRO (humaLOG) 300 UNIT/3 ML VIAL SQ SCH ×4 (08:23→21:11)
[2016-11-19] MEDS: DORZOLAMIDE HCL 2% DROPS 10 ML BTL BOTH EYES SCH ×2 (08:24→17:19)
[2016-11-19] MEDS: DOCUSATE 100 MG CAP PO SCH ×2 (08:24→17:19)
[2016-11-19] MEDS: MEGESTROL 400 MG/10 ML CUP PO SCH (08:29)
[2016-11-19] MEDS: FUROSEMIDE 10 MG/ML 10 ML VIAL IV SCH ×2 (09:31→21:11)
[2016-11-19] MEDS: SODIUM BICARBONATE TAB 650 MG TAB PO SCH ×2 (09:31→21:10)
[2016-11-19] MEDS: TAMSULOSIN 0.4 MG CAP.ER.24H PO SCH (09:31)
[2016-11-19] MEDS: MEROPENEM 1 GM in SODIUM CHLORIDE 0.9% 100 ML IVPB SCH (09:31)
[2016-11-19] MEDS: DONEPEZIL 10 MG TAB PO SCH (09:33)
--- NOTE | 2016-11-19 10:16 | P.PN ---
Subjective 81-year-old male patient who is known to me from previous hospital admissions. The patient has multiple medical problems and comorbidities. He is known to have COPD, congestion heart failure, chronic atrial fibrillation and chronic renal failure and he was recently started on dialysis 3 times a week. He is also known to have hypertension and hyperlipidemia and sacral decubitus ulceration. The patient was Hospital as because of altered mental status. Later on he was found to be hypotensive and septic. No cultures were positive for Klebsiella 2 and the patient had a wound cultures was positive for MRSA and pseudomonas aeruginosa in the urine. Note that along with hypotension, the patient became pressor dependent and this morning it is on levo fed at 6 mics per KG per minute. Infectious disease evaluated the patient and patient was started on a combination of Zosyn and vancomycin. This was initially antibiotic coverage and following that he got switched to Merrem and vancomycin. The patient has a right subclavian permacath that was placed during earliest admissions. This is a IJ catheter that was inserted on 2016. There is suspicion that the gram-negative septicemia the patient has is rated to a line infection. The patient will have dialysis today and following that the permacath will be removed. Repeat blood cultures will be taken at time of dialysis. White cell count is at 24,000. Renal function shows impairment a creatinine of 3.3. Rest of the electrolytes are within normal. The patient is a bicarb level of 15 and he has a component of mild anion gap metabolic acidosis with an anion gap of 22. As for the wound, this is a stage I ulcer and his sacrum. The chest x-ray at time of admission showed no acute abnormalities. The echocardiogram that was done in August showed moderate to severe tricuspid regurgitation, and ejection fraction of less than 20% consistent with severe cardiomyopathy. On 11/18/2016 I'm seeing this patient in follow-up. The patient was attempted to get a dialysis yesterday with ultrafiltration however he became hypotensive and the procedure had to be aborted after 1 hour. A total of 1.3 L of fluid was removed. A repeat dialysis will be done today through the permacath. The original plan was to remove the permacath and I'm expecting that this will be done today after he completes his dialysis. The patient is doing better compared to yesterday. The patient is also on few mics of levo fed and it is currently running at 3 mics per KG per minutes. He is on a combination of Merrem and vancomycin. No fever. No chills. Tolerating diet. He has a had a ladder scan yesterday that showed more than 400 mL of urine retention. He had a straight cath and a total of 200 mL's of urine output was evacuated from his bladder. He has no Clarke catheter for now. He is awake. He is alert. He is following commands. No fever. No other significant events over the past 24 hours. On 11/19/2016 the patient is being seen in follow-up in the patient has been off pressors since 6 AM this morning.. The patient's permacath was also removed yesterday and the tip was sent to cultures. Meanwhile, the patient is doing well. She is afebrile. He is hemodynamically stable. The bladder scan showed 300 mL of urine and the patient is having periodic straight cath. The patient is on the same antibiotic surgically combination of meropenem and vancomycin. The patient underwent dialysis yesterday and total of 2 L of fluid was removed. The patient has scrotal edema. The patient has lower extremity edema. No major electrodes imbalance this point. He is awake tolerating diet and come indicating without any major difficulties. Most recent blood cultures on 11/17/2016 which is from 2 days ago and there are again showing gram- negative bacilli. Catheter tip was sent for cultures is also still pending for now. Objective - Vital Signs Vital signs: Vital Signs Temp 97.2 F L 11/19/16 08:00 Pulse 87 11/19/16 09:00 Resp 33 H 11/19/16 09:00 BP 90/50 11/19/16 09:00 Pulse Ox 98 11/19/16 09:00 Intake & Output 11/18/16 11/19/16 11/19/16 18:59 06:59 18:59 Intake Total 694.25 857.813 428.938 Output Total 2000 07 Balance -1306.75 856.813 428.938 Weight 59.6 kg 61.8 kg Intake: Intake, IV Titration 694.25 377.813 228.938 Amount Magnesium Sulfate-D5w Pmx 200 1 gm In Dextrose/Water 1 100ml.bag @ 100 mls/hr IVPB Q1H [facility] Rx#: [id number] Meropenem 1 gm In Sodium 100 Chloride 0.9% 100 ml @ 200 mls/hr IVPB Q24HR [facility] Rx#:[id number] Norepinephrin 4 mg-0.9% 74.25 217.813 18.938 Ns Pmx 4 mg In 250 ml @ 1 MCG/MIN 3.75 mls/hr IV . Q24H [facility] Rx#:[id number] Sodium Chloride 0.9% 1, 520 160 10 000 ml @ 50 mls/hr IV . Q20H [facility] Rx#:[id number] Oral 480 200 Output: Urine 0 Stool 1 1 Other 2000 Other: Voiding Method Bedside Commode Bedside Commode # Voids 1 # Bowel Movements 1 - Exam Head exam was generally normal. There was no scleral icterus or corneal arcus. Mucous membranes were moist.Neck was supple and without jugular venous distension, thyromegaly, or carotid bruits. Carotids were easily palpable bilaterally. There was no adenopathy. Lung sounds are diminished bilaterally otherwise clear. Heart sounds are regular, positive S1-S2, no cervical murmurs appreciated. The patient has an AICD over the left anterior chest area and the pocket is clean.Abdominal exam revealed normal bowel sounds. The abdomen was soft, non-tender, and without masses, organomegaly, or appreciable enlargement of the abdominal aorta.Examination of the extremities revealed easily palpable radial, femoral and pedal pulses. There was no cyanosis, clubbing and there is bilateral +1 pitting edema. The patient also has scrotal edema.. Her diminished pulses in lower extremities bilaterally. Neurologically, the patient is awake and alert. - Labs CBC & Chem 7: 11/19/16 04:59 11/19/16 04:59 Labs: Abnormal Lab Results - Last 24 Hours (Table) 11/18/16 11/18/16 11/18/16 Range/Units 11:52 16:58 21:35 RBC (4.30-5.90) m/uL Hgb (13.0-17.5) gm/dL Hct (39.0-53.0) % MCV (80.0-100.0) fL MCHC (31.0-37.0) g/dL RDW (11.5-15.5) % Plt Count (150-450) k/uL Creatinine (0.66-1.25) mg/dL Glucose (74-99) mg/dL POC Glucose (mg/dL) 137 H 163 H 235 H (75-99) mg/dL Calcium (8.4-10.2) mg/dL Total Bilirubin (0.2-1.3) mg/dL AST (17-59) U/L ALT (21-72) U/L Alkaline Phosphatase (38-126) U/L Total Protein (6.3-8.2) g/dL Albumin (3.5-5.0) g/dL 11/19/16 11/19/16 11/19/16 Range/Units 04:59 04:59 07:49 RBC 3.06 L (4.30-5.90) m/uL Hgb 9.5 L (13.0-17.5) gm/dL Hct 31.0 L (39.0-53.0) % MCV 101.4 H (80.0-100.0) fL MCHC 30.5 L (31.0-37.0) g/dL RDW 17.6 H (11.5-15.5) % Plt Count 129 L (150-450) k/uL Creatinine 1.90 H (0.66-1.25) mg/dL Glucose 211 H (74-99) mg/dL POC Glucose (mg/dL) 221 H (75-99) mg/dL Calcium 8.1 L (8.4-10.2) mg/dL Total Bilirubin 1.6 H (0.2-1.3) mg/dL AST 140 H (17-59) U/L ALT 359 H (21-72) U/L Alkaline Phosphatase 192 H (38-126) U/L Total Protein 5.6 L (6.3-8.2) g/dL Albumin 2.6 L (3.5-5.0) g/dL Microbiology - Last 24 Hours (Table) 11/17/16 16:30 Blood Culture Gram Stain - Preliminary Blood 11/17/16 16:30 Blood Culture - Preliminary Blood 11/17/16 11:55 Blood Culture - Preliminary Blood No Growth after 24 hours 11/17/16 12:03 Blood Culture - Preliminary Blood No Growth after 24 hours Assessment and Plan Plan: Assessment 1 septic shock with gram-negative bacteria and the patient has multiple gram- negative positive blood cultures. Note that the earlier blood cultures from showed Klebsiella and the subsequent blood cultures from 11/17 are still positive and the final culture are still pending for now. Meanwhile, the permacath was removed and the catheter tip was sent for cultures. 2 hypotension secondary to above, currently on a combination of Merrem, vancomycin and norepinephrine infusion. The patient has been off pressors since 6 AM this morning. 3 altered mental status improving 4 CHF with ejection fraction of less than 20% 5 chronic renal failure with end-stage renal disease currently on hemodialysis 3 times a week 6 chronic anemia 7 chronic atrial fibrillation 8 stage I coccyx wound with MRSA growth currently on vancomycin 9 pseudomonal urine checked infection 10 insulin-dependent diabetes mellitus type 2 11 skin cancer that was resected 12 AICD placement for severe cardiomyopathy 13 chronic atrial fibrillation maintained on long-term anticoagulation, on Eliquis 14 hyperlipidemia 15 BPH 16 previous hospitalization for an influenza pneumonia 17 very poor baseline performance and functional status Plan The patient is doing better hemodynamically. There is a high concern that there may be an intravascular infection being either a pacemaker defibrillator infection or a valve infection. A catheter infection is also likely. The catheter was removed and the tip was sent for cultures. Repeat blood cultures will be done in a.m. Meanwhile continue the combination of Merrem and vancomycin. Continue monitoring the blood pressure. Currently the patient is off pressors. ID is on the case. Nephrology is on the case. The patient is on no dialysis for now. He will ultimately need dialysis within next few days however. We'll monitor urine output. Will need periodic straight cathed. Will monitor bladder scan for urinary retention. We'll continue to follow make further recommendations based on his progress.
[2016-11-19 11:48] LABS: Glucose,Whole Blood 227 mg/dL (75-99)
--- NOTE | 2016-11-19 11:52 | P.PN ---
Subjective Patient is seen in follow-up for dialysis-dependent acute kidney injury due to cardiorenal syndrome. Patient is currently being treated for gram-negative bacteremia with blood cultures positive for Klebsiella. His urine cultures positive for Pseudomonas and his wound cultures positive for MRSA. He underwent hemodialysis on November 18 and the dialysis catheter was removed. Denies any chest pain or shortness of breath. No vomiting or diarrhea. Oral intake is fair. He is off all vasopressors. Vital signs are stable. General: The patient appeared well nourished and normally developed. HEENT: Head exam is unremarkable. Neck is without jugular venous distension. LUNGS: Lungs are clear to auscultation and percussion. Breath sounds decreased. HEART: Rate and Rhythm are regular. First and second heart sounds normal. No murmurs, rubs or gallops. ABDOMEN: Abdominal exam reveals normal bowel sounds. Non-tender and non- distended. No evidence of peritonitis. EXTREMITITES: 1+ edema. Objective - Vital Signs Vital signs: Vital Signs Temp 97.2 F L 11/19/16 08:00 Pulse 72 11/19/16 11:30 Resp 0 L 11/19/16 11:30 BP 72/54 11/19/16 11:30 Pulse Ox 96 11/19/16 11:30 Intake & Output 11/18/16 11/19/16 11/19/16 18:59 06:59 18:59 Intake Total 694.25 857.813 548.938 Output Total 2000 Balance -1306.75 856.813 532.938 Weight 59.6 kg 61.8 kg Intake: IV 20 ns 20 Intake, IV Titration 694.25 377.813 328.938 Amount Magnesium Sulfate-D5w Pmx 200 1 gm In Dextrose/Water 1 100ml.bag @ 100 mls/hr IVPB Q1H [facility] Rx#: [id number] Meropenem 1 gm In Sodium 100 100 Chloride 0.9% 100 ml @ 200 mls/hr IVPB Q24HR [facility] Rx#:[id number] Norepinephrin 4 mg-0.9% 74.25 217.813 18.938 Ns Pmx 4 mg In 250 ml @ 1 MCG/MIN 3.75 mls/hr IV . Q24H [facility] Rx#:[id number] Sodium Chloride 0.9% 1, 520 160 10 000 ml @ 50 mls/hr IV . Q20H [facility] Rx#:[id number] Oral 480 200 Output: Urine 0 15 Stool 1 1 1 Other 2000 Other: Voiding Method Bedside Commode Bedside Commode Bedside Commode # Voids 1 # Bowel Movements 1 - Labs CBC & Chem 7: 11/19/16 04:59 11/19/16 04:59 Labs: Abnormal Lab Results - Last 24 Hours (Table) 11/18/16 11/18/16 11/18/16 Range/Units 11:52 16:58 21:35 RBC (4.30-5.90) m/uL Hgb (13.0-17.5) gm/dL Hct (39.0-53.0) % MCV (80.0-100.0) fL MCHC (31.0-37.0) g/dL RDW (11.5-15.5) % Plt Count (150-450) k/uL Creatinine (0.66-1.25) mg/dL Glucose (74-99) mg/dL POC Glucose (mg/dL) 137 H 163 H 235 H (75-99) mg/dL Calcium (8.4-10.2) mg/dL Total Bilirubin (0.2-1.3) mg/dL AST (17-59) U/L ALT (21-72) U/L Alkaline Phosphatase (38-126) U/L Total Protein (6.3-8.2) g/dL Albumin (3.5-5.0) g/dL 11/19/16 11/19/16 11/19/16 Range/Units 04:59 04:59 07:49 RBC 3.06 L (4.30-5.90) m/uL Hgb 9.5 L (13.0-17.5) gm/dL Hct 31.0 L (39.0-53.0) % MCV 101.4 H (80.0-100.0) fL MCHC 30.5 L (31.0-37.0) g/dL RDW 17.6 H (11.5-15.5) % Plt Count 129 L (150-450) k/uL Creatinine 1.90 H (0.66-1.25) mg/dL Glucose 211 H (74-99) mg/dL POC Glucose (mg/dL) 221 H (75-99) mg/dL Calcium 8.1 L (8.4-10.2) mg/dL Total Bilirubin 1.6 H (0.2-1.3) mg/dL AST 140 H (17-59) U/L ALT 359 H (21-72) U/L Alkaline Phosphatase 192 H (38-126) U/L Total Protein 5.6 L (6.3-8.2) g/dL Albumin 2.6 L (3.5-5.0) g/dL 11/19/16 Range/Units 11:44 RBC (4.30-5.90) m/uL Hgb (13.0-17.5) gm/dL Hct (39.0-53.0) % MCV (80.0-100.0) fL MCHC (31.0-37.0) g/dL RDW (11.5-15.5) % Plt Count (150-450) k/uL Creatinine (0.66-1.25) mg/dL Glucose (74-99) mg/dL POC Glucose (mg/dL) 227 H (75-99) mg/dL Calcium (8.4-10.2) mg/dL Total Bilirubin (0.2-1.3) mg/dL AST (17-59) U/L ALT (21-72) U/L Alkaline Phosphatase (38-126) U/L Total Protein (6.3-8.2) g/dL Albumin (3.5-5.0) g/dL Microbiology - Last 24 Hours (Table) 11/18/16 23:00 Catheter Tip Culture - Preliminary Catheter Tip 11/17/16 16:30 Blood Culture Gram Stain - Preliminary Blood 11/17/16 16:30 Blood Culture - Preliminary Blood 11/17/16 11:55 Blood Culture - Preliminary Blood No Growth after 24 hours 11/17/16 12:03 Blood Culture - Preliminary Blood No Growth after 24 hours Assessment and Plan Plan: Assessment: #1. Dialysis-dependent acute kidney injury secondary to cardiorenal syndrome. #2. Klebsiella oxytoca bacteremia with permacath being the likely source of infection. #3. Urinary tract infection with urine culture positive for Pseudomonas. #4. Sacral decubitus wound culture positive for MRSA. #5. Hypotension maintained on Midodrine. #6. Metabolic acidosis secondary to acute kidney injury. #7. Anemia. Hemoglobin 9.5. Done Brea. Plan: Hold dialysis today. Monitor blood cultures as well as catheter tip culture which was sent on November 18. Maintain IV Lasix. Maintain Aranesp. Maintain oral sodium bicarbonate supplementation. Monitor renal function and urine output closely and will assess the need for renal replacement therapy on a day-to-day basis.
[2016-11-19 17:20] LABS: Glucose,Whole Blood 229 mg/dL (75-99)
--- NOTE | 2016-11-19 18:12 | PCN ---
DATE OF PROCEDURE: PROCEDURE: Removal of dialysis catheter, right internal jugular approach. This patient was seen in the intensive care unit. Right side of the chest and neck was prepped and draped in sterile manner. Lidocaine 1% ( ) catheter; went circumferentially around the catheter. Catheter was removed. Tip of the catheter was sent for culture and sensitivity. Pressure dressing was applied. Patient tolerated the procedure well.
[2016-11-19 20:45] LABS: Glucose,Whole Blood 183 mg/dL (75-99)
[2016-11-19] MEDS: ATORVASTATIN 10 MG TAB PO SCH (21:10)
[2016-11-19] MEDS: FOLIC ACID-VIT B COMPLEX-VIT C 1 CAP PO SCH (21:10)
--- NOTE | 2016-11-19 23:37 | P.PN ---
Subjective Principal diagnosis: Sepsis This is an 81-year-old male. He had a hospitalization in August 2016 for acute kidney injury and was started on hemodialysis Thursday, , Thursday. He was seen on that hospitalization by Dr. Mc from infectious disease for Pseudomonas tracheobronchitis or pneumonia. His most recent hospitalization from October 14 through October 18 which time he was treated for urinary tract infection with enterococcus for which patient was treated on ampicillin and was discharged on 7 days as well as Clarke catheter in place. Patient went to [facility] and was discharged from there on November 05. Patient states he was doing well and using a walker and gaining his strength back. He has been following with hemodialysis center and they had noted that he had a fever and blood cultures were obtained on 11/11 which Klebsiella oxytoca, sensitivity not available. Patient was sent into [facility] emergency center for evaluation and found to be tachycardic, hypotensive with leukocytosis initially of 31.4 area and platelet count 143 and he does have history of mild thrombocytopenia. Hemoglobin is 9.3. BUN 23 and creatinine 2.04. Albumin 3. Urinalysis was turbid, leukoesterase large, blood moderate, WBCs greater than 182. Bacteria moderate. 2 blood cultures have status received. Urine culture is in process. There are consult in place for Dr. Ibrahim for intensive care management and nephrology. Chest x-ray is showing no acute pulmonary disease. Patient is also known to have a decubitus ulcer to the coccyx stage II. Patient had Clarke catheter removed on November 05. His most recent urine culture on October 14 positive for Enterococcus faecalis (not VRE) and Monet. Patient also has significant history of chronic atrial fibrillation on amiodarone and eliquis as well as chronic systolic heart failure and nonischemic cardiomyopathy with AICD. Patient remains ill. Ongoing difficulty with the Klebsiella sepsis. His remaining hypotensive. The case is discussed with vascular surgery and nephrology. Catheter removed for dialysis. Objective - Vital Signs Vital signs: Vital Signs Temp 97.8 F 11/19/16 22:30 Pulse 82 11/19/16 22:30 Resp 16 11/19/16 22:30 BP 89/59 11/19/16 22:30 Pulse Ox 98 11/19/16 22:30 Intake & Output 11/19/16 11/19/16 11/20/16 06:59 18:59 06:59 Intake Total 857.813 558.938 50 Output Total 1 17 1 Balance 856.813 541.938 49 Weight 61.8 kg Intake: IV 30 ns 30 Intake, IV Titration 377.813 328.938 Amount Magnesium Sulfate-D5w Pmx 200 1 gm In Dextrose/Water 1 100ml.bag @ 100 mls/hr IVPB Q1H [facility] Rx#: [id number] Meropenem 1 gm In Sodium 100 Chloride 0.9% 100 ml @ 200 mls/hr IVPB Q24HR [facility] Rx#:[id number] Norepinephrin 4 mg-0.9% 217.813 18.938 Ns Pmx 4 mg In 250 ml @ 1 MCG/MIN 3.75 mls/hr IV . Q24H [facility] Rx#:[id number] Sodium Chloride 0.9% 1, 160 10 000 ml @ 50 mls/hr IV . Q20H [facility] Rx#:[id number] Oral 480 200 50 Output: Urine 15 Stool 1 2 1 Other: Voiding Method Bedside Commode Bedside Commode Bedside Commode # Voids 1 # Bowel Movements 1 - Exam Gen: This is an 81-year-old male. He is seen in ICU bed and appears to be comfortable and in no acute distress. No respiratory distress noted. HEENT: Head is atraumatic, normocephalic. Pupils equal, round. Sclerae is anicteric. Oral mucous membranes are slightly dry. NECK: Supple. No JVD. No lymphadenopathy. No thyromegaly. The right IJ catheter is without tenderness or expressible purulence LUNGS: Clear to auscultation. No wheezes or rhonchi. No intercostal retractions. HEART: Irregular rate and rhythm. No murmur. Dialysis catheter to the right upper anterior chest wall without tenderness. ABDOMEN: Soft. Bowel sounds are present. No masses. No tenderness. EXTREMITIES: Bilateral pedal edema more so on the right. Dorsalis pedis is weak bilaterally. NEUROLOGICAL: Patient is awake, alert and oriented x3. Cranial nerves 2 through 12 are grossly intact. Significant edema of the penis and scrotum is noticed. - Labs CBC & Chem 7: 11/19/16 04:59 11/19/16 04:59 Labs: Abnormal Lab Results - Last 24 Hours (Table) 11/19/16 11/19/16 11/19/16 Range/Units 04:59 04:59 07:49 RBC 3.06 L (4.30-5.90) m/uL Hgb 9.5 L (13.0-17.5) gm/dL Hct 31.0 L (39.0-53.0) % MCV 101.4 H (80.0-100.0) fL MCHC 30.5 L (31.0-37.0) g/dL RDW 17.6 H (11.5-15.5) % Plt Count 129 L (150-450) k/uL Creatinine 1.90 H (0.66-1.25) mg/dL Glucose 211 H (74-99) mg/dL POC Glucose (mg/dL) 221 H (75-99) mg/dL Calcium 8.1 L (8.4-10.2) mg/dL Total Bilirubin 1.6 H (0.2-1.3) mg/dL AST 140 H (17-59) U/L ALT 359 H (21-72) U/L Alkaline Phosphatase 192 H (38-126) U/L Total Protein 5.6 L (6.3-8.2) g/dL Albumin 2.6 L (3.5-5.0) g/dL 11/19/16 11/19/16 11/19/16 Range/Units 11:44 17:18 20:41 RBC (4.30-5.90) m/uL Hgb (13.0-17.5) gm/dL Hct (39.0-53.0) % MCV (80.0-100.0) fL MCHC (31.0-37.0) g/dL RDW (11.5-15.5) % Plt Count (150-450) k/uL Creatinine (0.66-1.25) mg/dL Glucose (74-99) mg/dL POC Glucose (mg/dL) 227 H 229 H 183 H (75-99) mg/dL Calcium (8.4-10.2) mg/dL Total Bilirubin (0.2-1.3) mg/dL AST (17-59) U/L ALT (21-72) U/L Alkaline Phosphatase (38-126) U/L Total Protein (6.3-8.2) g/dL Albumin (3.5-5.0) g/dL Microbiology - Last 24 Hours (Table) 11/17/16 16:30 Blood Culture Gram Stain - Preliminary Blood Blood Culture - Preliminary Gram Neg Bacilli 11/19/16 10:46 Urine Culture - Preliminary Urine,Catheterized 11/17/16 11:55 Blood Culture - Preliminary Blood No Growth after 48 hours 11/17/16 12:03 Blood Culture - Preliminary Blood No Growth after 48 hours 11/18/16 23:00 Catheter Tip Culture - Preliminary Catheter Tip 11/17/16 16:30 Blood Culture - Preliminary Blood Laboratory Results WBC 10.1 k/uL (3.8-10.6) 11/19/16 04:59 RBC 3.06 m/uL (4.30-5.90) L 11/19/16 04:59 Hgb 9.5 gm/dL (13.0-17.5) L 11/19/16 04:59 Hct 31.0 % (39.0-53.0) L 11/19/16 04:59 MCV 101.4 fL (80.0-100.0) H 11/19/16 04:59 MCH 30.9 pg (25.0-35.0) 11/19/16 04:59 MCHC 30.5 g/dL (31.0-37.0) L 11/19/16 04:59 RDW 17.6 % (11.5-15.5) H 11/19/16 04:59 Plt Count 129 k/uL (150-450) L 11/19/16 04:59 Neutrophils % 89 % 11/18/16 05:22 Neutrophils % (Manual) 91.0 % 11/13/16 17:16 Band Neutrophils % 5.0 % 11/13/16 17:16 Lymphocytes % 6 % 11/18/16 05:22 Lymphocytes % (Manual) 2.5 % 11/13/16 17:16 Monocytes % 4 % 11/18/16 05:22 Monocytes % (Manual) 1.5 % 11/13/16 17:16 Eosinophils % 0 % 11/18/16 05:22 Basophils % 0 % 11/18/16 05:22 Neutrophils # 14.1 k/uL (1.3-7.7) H 11/18/16 05:22 Neutrophils # (Manual) 30.1 k/uL (1.3-7.7) H 11/13/16 17:16 Lymphocytes # 1.0 k/uL (1.0-4.8) 11/18/16 05:22 Lymphocytes # (Manual) 0.8 k/uL (1.0-4.8) L 11/13/16 17:16 Monocytes # 0.6 k/uL (0-1.0) 11/18/16 05:22 Monocytes # (Manual) 0.5 k/uL (0-1.0) 11/13/16 17:16 Eosinophils # 0.1 k/uL (0-0.7) 11/18/16 05:22 Basophils # 0.0 k/uL (0-0.2) 11/18/16 05:22 Nucleated RBCs 0 /100 WBC (0-0) 11/13/16 17:16 Manual Slide Review Performed 11/13/16 17:16 Polychromasia Present 11/13/16 17:16 Hypochromasia Marked 11/19/16 04:59 Anisocytosis Slight 11/19/16 04:59 Anisocytosis (manual) Present 11/13/16 17:16 Macrocytosis Moderate 11/19/16 04:59 PT 12.6 sec (9.0-12.0) H 11/13/16 17:16 INR 1.3 (<1.1) 11/13/16 17:16 APTT 22.1 sec (22.0-30.0) 11/13/16 17:16 Sodium 137 mmol/L (137-145) 11/19/16 04:59 Potassium 3.9 mmol/L (3.5-5.1) 11/19/16 04:59 Chloride 102 mmol/L (98-107) 11/19/16 04:59 Carbon Dioxide 24 mmol/L (22-30) 11/19/16 04:59 Anion Gap 11 mmol/L 11/19/16 04:59 BUN 17 mg/dL (9-20) 11/19/16 04:59 Creatinine 1.90 mg/dL (0.66-1.25) H 11/19/16 04:59 Est GFR (MDRD) Af Amer 42 (>60 ml/min/1.73 sqM) 11/19/16 04:59 Est GFR (MDRD) Non-Af 34 (>60 ml/min/1.73 sqM) 11/19/16 04:59 Glucose 211 mg/dL (74-99) H 11/19/16 04:59 POC Glucose (mg/dL) 183 mg/dL (75-99) H 11/19/16 20:41 POC Glu [employer]ician ID Maci Lewis 11/19/16 20:[address] Glu mg/dL 91 mg/dL 11/14/16 04:31 Hemoglobin A1c 4.8 % (4.2-6.1) 11/14/16 04:31 Plasma Lactic Acid [place] 1.9 mmol/L (0.7-2.0) 11/14/16 08:50 Calcium 8.1 mg/dL (8.4-10.2) L 11/19/16 04:59 Phosphorus 2.9 mg/dL (2.5-4.5) 11/19/16 04:59 Magnesium 1.9 mg/dL (1.6-2.3) 11/19/16 04:59 Total Bilirubin 1.6 mg/dL (0.2-1.3) H 11/19/16 04:59 AST 140 U/L (17-59) H 11/19/16 04:59 ALT 359 U/L (21-72) H 11/19/16 04:59 Alkaline Phosphatase 192 U/L (38-126) H 11/19/16 04:59 Total Creatine Kinase 22 U/L (55-170) L 11/13/16 17:16 CK-MB (CK-2) 1.6 ng/mL (0.0-2.4) 11/13/16 17:16 CK-MB (CK-2) Rel Index 7.3 11/13/16 17:16 Troponin I 0.028 ng/mL (0.000-0.034) 11/13/16 17:16 Total Protein 5.6 g/dL (6.3-8.2) L 11/19/16 04:59 Albumin 2.6 g/dL (3.5-5.0) L 11/19/16 04:59 Cortisol 61 ug/dL 11/16/16 14:45 Urine Color [place] 11/13/16 18:50 Urine Appearance Turbid (Clear) 11/13/16 18:50 Urine pH 5.5 (5.0-8.0) 11/13/16 18:50 Ur Specific [place] 1.017 (1.001-1.035) 11/13/16 18:50 Urine Protein 2+ (Negative) H 11/13/16 18:50 Urine Glucose (UA) Negative (Negative) 11/13/16 18:50 Urine Ketones Negative (Negative) 11/13/16 18:50 Urine Blood Moderate (Negative) H 11/13/16 18:50 Urine Nitrite Negative (Negative) 11/13/16 18:50 Urine Bilirubin 1+ (Negative) H 11/13/16 18:50 Urine Urobilinogen 4.0 mg/dL (<2.0) 11/13/16 18:50 Ur Leukocyte Esterase Large (Negative) H 11/13/16 18:50 Urine RBC 16 /hpf (0-5) H 11/13/16 18:50 Urine WBC >182 /hpf (0-5) H 11/13/16 18:50 Urine WBC Clumps Many /hpf (None) H 11/13/16 18:50 Urine Bacteria Moderate /hpf (None) H 11/13/16 18:50 Hyaline Casts 8 /lpf (0-2) H 11/13/16 18:50 Random Vancomycin 14.8 ug/mL 11/18/16 05:22 Microbiology 11/17/16 16:30 Blood Blood Culture Gram Stain - Preliminary 11/17/16 16:30 Blood Blood Culture - Preliminary Gram Neg Bacilli 11/19/16 10:46 Urine,Catheterized Urine Culture - Preliminary 11/17/16 11:55 Blood Blood Culture - Preliminary No Growth after 48 hours 11/17/16 12:03 Blood Blood Culture - Preliminary No Growth after 48 hours 11/18/16 23:00 Catheter Tip Catheter Tip Culture - Preliminary 11/17/16 16:30 Blood Blood Culture - Preliminary 11/13/16 17:16 Blood Blood Culture Gram Stain - Final 11/13/16 17:16 Blood Blood Culture - Final Klebsiella oxytoca 11/13/16 21:00 Blood Blood Culture Gram Stain - Final 11/13/16 21:00 Blood Blood Culture - Final Klebsiella oxytoca 11/13/16 23:09 Other - Other Gram Stain - Preliminary 11/13/16 23:09 Other - Other Wound Culture - Final Methicillin resist S. aureus 11/13/16 18:50 Urine,Catheterized Urine Culture - Final Pseudomonas aeruginosa 11/13/16 17:16 Blood Blood Culture - Final 11/13/16 21:00 Blood Blood Culture - Final Assessment and Plan (1) Fever Status: Acute (2) Sepsis Narrative/Plan: 81-year-old male has history of recent profound illness with resultant end-stage renal disease placed on hemodialysis. He now developed evidence of Klebsiella oxytoca bacteremia. It did persist over a day and now seems to be doing better at this time. However given antigram negative that was not present in his urine. The urine had pseudomonas aeruginosa. With this disconnect concern would be to the potential that there is a catheter-related infection and consequently vascular surgery removde the catheter will be dialysis free for a few days and then the catheter be replaced at that time if we have evidence of ongoing negative blood cultures. As noted the case was discussed with vascular surgery and nephrology. Blood cultures regretfully are still positive at this time. Follow-up cultures have been requested. Once negative cultures of been obtained dialysis catheter can be replaced. He is having significant genital edema in zinc can be applied to that area. Patient fortunately is feeling better at this time. Continue the Merrem for the ESBL and vancomycin for the isolated MRSA.. After catheter removal plan 2 weeks of antibiotic therapy. Status: Acute
[2016-11-20] MEDS: PANTOPRAZOLE 40 MG TABLET PO SCH (05:16)
[2016-11-20] MEDS: MIDODRINE 5 MG TAB PO SCH ×3 (05:16→20:17)
[2016-11-20] MEDS: SODIUM BICARBONATE TAB 650 MG TAB PO SCH ×2 (07:36→20:17)
[2016-11-20] MEDS: MEGESTROL 400 MG/10 ML CUP PO SCH (07:36)
[2016-11-20] MEDS: DONEPEZIL 10 MG TAB PO SCH (07:36)
[2016-11-20] MEDS: DOCUSATE 100 MG CAP PO SCH ×2 (07:37→18:02)
[2016-11-20] MEDS: FUROSEMIDE 10 MG/ML 10 ML VIAL IV SCH ×2 (07:37→20:17)
[2016-11-20] MEDS: INSULIN LISPRO (humaLOG) 300 UNIT/3 ML VIAL SQ SCH ×4 (07:37→21:19)
[2016-11-20] MEDS: DORZOLAMIDE HCL 2% DROPS 10 ML BTL BOTH EYES SCH ×2 (07:37→18:02)
[2016-11-20] MEDS: TAMSULOSIN 0.4 MG CAP.ER.24H PO SCH (07:37)
[2016-11-20 07:46] LABS: Glucose,Whole Blood 180 mg/dL (75-99)
[2016-11-20 08:09] LABS: Anisocytosis Slight; CH 29.8; CHCM 29.8; HCT 32.6 % (39.0-53.0); HDW 3.26; Hypochromasia Marked; MCHC 30.7 g/dL (31.0-37.0); Macrocytosis Slight; Mean Platelet Volume 8.2; RBC 3.22 m/uL (4.30-5.90); RDW 17.3 % (11.5-15.5); WBC 9.2 k/uL (3.8-10.6)
--- NOTE | 2016-11-20 08:18 | P.PN ---
Subjective Principal diagnosis: Hypertension/renal failure. This is significant impression an 81-year-old white male with catheter induced sepsis with UTI. He has an underlying history of stage III renal failure but has been dialysis dependent for about 3-4 months. He has not been transferred from the ICU and doing much better. Antibiotic treatment will continue secondary to the removal of the catheter for a few days until we get negative blood cultures. Otherwise no complaints. He had an element of hypertension which is now been stabilized. Objective - Vital Signs Vital signs: Vital Signs Temp 97.8 F 11/19/16 22:30 Pulse 82 11/20/16 03:00 Resp 16 11/19/16 22:30 BP 86/55 11/20/16 03:00 Pulse Ox 99 11/20/16 03:00 Intake & Output 11/19/16 11/20/16 11/20/16 18:59 06:59 18:59 Intake Total 558.938 100 Output Total 17 1 Balance 541.938 99 Intake: IV 30 ns 30 Intake, IV Titration 328.938 Amount Magnesium Sulfate-D5w Pmx 200 1 gm In Dextrose/Water 1 100ml.bag @ 100 mls/hr IVPB Q1H [facility] Rx#: [id number] Meropenem 1 gm In Sodium 100 Chloride 0.9% 100 ml @ 200 mls/hr IVPB Q24HR [facility] Rx#:[id number] Norepinephrin 4 mg-0.9% 18.938 Ns Pmx 4 mg In 250 ml @ 1 MCG/MIN 3.75 mls/hr IV . Q24H [facility] Rx#:[id number] Sodium Chloride 0.9% 1, 10 000 ml @ 50 mls/hr IV . Q20H [facility] Rx#:[id number] Oral 200 100 Output: Urine 15 Stool 2 1 Other: Voiding Method Bedside Commode Bedside Commode # Voids 1 - Constitutional General appearance: Present: thin - Neck Neck: Absent: lymphadenopathy - Respiratory Respiratory: bilateral: CTA - Cardiovascular Rhythm: irregularly irregular Heart sounds: normal: S1, S2 - Gastrointestinal General gastrointestinal: Present: soft. Absent: tenderness - Neurologic Neurologic: Present: CNII-XII intact - Psychiatric Psychiatric: Present: A&O x's 3, appropriate affect - Labs CBC & Chem 7: 11/20/16 07:45 11/19/16 04:59 Labs: Abnormal Lab Results - Last 24 Hours (Table) 11/19/16 11/19/16 11/19/16 Range/Units 11:44 17:18 20:41 RBC (4.30-5.90) m/uL Hgb (13.0-17.5) gm/dL Hct (39.0-53.0) % MCV (80.0-100.0) fL MCHC (31.0-37.0) g/dL RDW (11.5-15.5) % Plt Count (150-450) k/uL POC Glucose (mg/dL) 227 H 229 H 183 H (75-99) mg/dL 11/20/16 11/20/16 Range/Units 07:32 07:45 RBC 3.22 L (4.30-5.90) m/uL Hgb 10.0 L (13.0-17.5) gm/dL Hct 32.6 L (39.0-53.0) % MCV 101.0 H (80.0-100.0) fL MCHC 30.7 L (31.0-37.0) g/dL RDW 17.3 H (11.5-15.5) % Plt Count 122 L (150-450) k/uL POC Glucose (mg/dL) 180 H (75-99) mg/dL Microbiology - Last 24 Hours (Table) 11/17/16 16:30 Blood Culture Gram Stain - Preliminary Blood Blood Culture - Preliminary Gram Neg Bacilli 11/19/16 10:46 Urine Culture - Preliminary Urine,Catheterized 11/17/16 11:55 Blood Culture - Preliminary Blood No Growth after 48 hours 11/17/16 12:03 Blood Culture - Preliminary Blood No Growth after 48 hours 11/18/16 23:00 Catheter Tip Culture - Preliminary Catheter Tip 11/17/16 16:30 Blood Culture - Preliminary Blood Assessment and Plan (1) Sepsis Status: Acute (2) AICD (automatic cardioverter/defibrillator) present Status: Acute (3) Anemia Status: Acute (4) Atrial fibrillation with rapid ventricular response Status: Acute (5) Cardiomyopathy, nonischemic Status: Acute (6) Chronic renal failure Status: Acute (7) High risk for readmission Status: Acute Plan: Again, UTI with sepsis. Catheter induced infection given 2 different bacteria with blood culture positivity and urine culture positivity. At this point, stage III kidney disease but dialysis dependent. Check CBC and CMP in a.m. We'll continue to follow protocol with removal of dialysis catheter and reinsertion. The patient will need 2 weeks of antibiotics per infectious disease. Gnosis is guarded but improving. See orders otherwise. Time with Patient: Less than 30
[2016-11-20 08:35] LABS: Calcium 8.5 mg/dL (8.4-10.2); Magnesium 2.4 mg/dL (1.6-2.3); Phosphorous 3.9 mg/dL (2.5-4.5); Potassium 4.6 mmol/L (3.5-5.1); Total Bilirubin 1.5 mg/dL (0.2-1.3); Total Protein 6.2 g/dL (6.3-8.2)
[2016-11-20] MEDS: MEROPENEM 1 GM in SODIUM CHLORIDE 0.9% 100 ML IVPB SCH (09:00)
--- NOTE | 2016-11-20 10:27 | ECHOF ---
Referral Reason:Rule out endocarditis MEASUREMENTS -------- HEIGHT: 162.6 cm WEIGHT: 61.7 kg BP: 89/50 RVIDd: 3.3 cm (< 3.3) IVSd: 1.0 cm (0.6 - 1.1) LVIDd: 5.8 cm (3.9 - 5.3) LVPWd: 1.0 cm (0.6 - 1.1) IVSs: 1.3 cm LVIDs: 5.8 cm LVPWs: 1.0 cm LA Diam: 4.0 cm (2.7 - 3.8) LAESV Index (A-L): 33.16 ml/m Ao Diam: 2.7 cm (2.0 - 3.7) AV Cusp: 1.5 cm (1.5 - 2.6) LA Diam: 4.5 cm (2.7 - 3.8) MV EXCURSION: 12.039 mm (> 18.000) MV EF SLOPE: 68 mm/s (70 - 150) EPSS: 2.2 cm MV E Pedro Luis: 0.83 m/s MV DecT: 204 ms MV A Pedro Luis: 0.39 m/s MV E/A Ratio: 2.11 RAP: 5.00 mmHg RVSP: 33.34 mmHg FINDINGS -------- Sinus rhythm. This was a technically good study. The left ventricle is mildly dilated. Overall left ventricular systolic function is severely impaired with, an EF < 20%. The right ventricle is normal in size. Normal LA size by volume 22+/-6 ml/m2. Bi-atrial enlargement. Electronic pacemaker lead seen in the right ventricular cavity. RA appears enlarged. Aortic valve is trileaflet and is mildly thickened. There is no evidence of aortic regurgitation. There is no evidence of aortic stenosis. The mitral valve leaflets are mildly thickened. Mild mitral annular calcification present. No mitral regurgitation. Mtvj-gx-syparjha tricuspid regurgitation present. There is mild pulmonary hypertension. The right ventricular systolic pressure, as measured by Doppler, is 33.34mmHg. The pulmonic valve was not well visualized. The aortic root size is normal. The inferior vena cava is dilated with no significant inspiratory collapse which is consistent estimated right atrial pressure of >20 mmHg. There is no pericardial effusion. CONCLUSIONS -------- 1. Sinus rhythm. 2. No mitral regurgitation. 3. Eskn-nn-aukhyqol tricuspid regurgitation present. 4. There is mild pulmonary hypertension. 5. The right ventricular systolic pressure, as measured by Doppler, is 33.34mmHg. 6. The aortic root size is normal. 7. The inferior vena cava is dilated with no significant inspiratory collapse which is consistent estimated right atrial pressure of >20 mmHg. 8. There is no pericardial effusion. 9. This was a technically good study. 10. The left ventricle is mildly dilated. 11. Overall left ventricular systolic function is severely impaired with, an EF < 20%. 12. Bi-atrial enlargement. 13. Electronic pacemaker lead seen in the right ventricular cavity. 14. Aortic valve is trileaflet and is mildly thickened. 15. The mitral valve leaflets are mildly thickened. 16. Mild mitral annular calcification present. WINDOWS DESKTOP SUPPORT: Glenn West RDCS
--- NOTE | 2016-11-20 10:50 | P.PN ---
Subjective Patient is seen in follow-up for dialysis-dependent acute kidney injury due to cardiorenal syndrome. Patient is currently being treated for gram-negative bacteremia with blood cultures positive for Klebsiella. His urine cultures positive for Pseudomonas and his wound cultures positive for MRSA. He underwent hemodialysis on November 18 and the dialysis catheter was removed. Denies any chest pain or shortness of breath. No vomiting or diarrhea. Oral intake is fair. He is off all vasopressors. Vital signs are stable. General: The patient appeared well nourished and normally developed. HEENT: Head exam is unremarkable. Neck is without jugular venous distension. LUNGS: Lungs are clear to auscultation and percussion. Breath sounds decreased. HEART: Rate and Rhythm are regular. First and second heart sounds normal. No murmurs, rubs or gallops. ABDOMEN: Abdominal exam reveals normal bowel sounds. Non-tender and non- distended. No evidence of peritonitis. EXTREMITITES: 1+ edema. Objective - Vital Signs Vital signs: Vital Signs Temp 97.4 F L 11/20/16 07:00 Pulse 83 11/20/16 07:00 Resp 18 11/20/16 07:00 BP 92/59 11/20/16 07:00 Pulse Ox 97 11/20/16 07:00 Intake & Output 11/19/16 11/20/16 11/20/16 18:59 06:59 18:59 Intake Total 558.938 100 Output Total 17 1 Balance 541.938 99 Intake: IV 30 ns 30 Intake, IV Titration 328.938 Amount Magnesium Sulfate-D5w Pmx 200 1 gm In Dextrose/Water 1 100ml.bag @ 100 mls/hr IVPB Q1H [facility] Rx#: [id number] Meropenem 1 gm In Sodium 100 Chloride 0.9% 100 ml @ 200 mls/hr IVPB Q24HR [facility] Rx#:[id number] Norepinephrin 4 mg-0.9% 18.938 Ns Pmx 4 mg In 250 ml @ 1 MCG/MIN 3.75 mls/hr IV . Q24H [facility] Rx#:[id number] Sodium Chloride 0.9% 1, 10 000 ml @ 50 mls/hr IV . Q20H [facility] Rx#:[id number] Oral 200 100 Output: Urine 15 Stool 2 1 Other: Voiding Method Bedside Commode Bedside Commode # Voids 1 - Labs CBC & Chem 7: 11/20/16 07:45 11/20/16 07:45 Labs: Abnormal Lab Results - Last 24 Hours (Table) 11/19/16 11/19/16 11/19/16 Range/Units 11:44 17:18 20:41 RBC (4.30-5.90) m/uL Hgb (13.0-17.5) gm/dL Hct (39.0-53.0) % MCV (80.0-100.0) fL MCHC (31.0-37.0) g/dL RDW (11.5-15.5) % Plt Count (150-450) k/uL BUN (9-20) mg/dL Creatinine (0.66-1.25) mg/dL Glucose (74-99) mg/dL POC Glucose (mg/dL) 227 H 229 H 183 H (75-99) mg/dL Magnesium (1.6-2.3) mg/dL Total Bilirubin (0.2-1.3) mg/dL AST (17-59) U/L ALT (21-72) U/L Alkaline Phosphatase (38-126) U/L Total Protein (6.3-8.2) g/dL Albumin (3.5-5.0) g/dL 11/20/16 11/20/16 11/20/16 Range/Units 07:32 07:45 07:45 RBC 3.22 L (4.30-5.90) m/uL Hgb 10.0 L (13.0-17.5) gm/dL Hct 32.6 L (39.0-53.0) % MCV 101.0 H (80.0-100.0) fL MCHC 30.7 L (31.0-37.0) g/dL RDW 17.3 H (11.5-15.5) % Plt Count 122 L (150-450) k/uL BUN 26 H (9-20) mg/dL Creatinine 2.73 H (0.66-1.25) mg/dL Glucose 184 H (74-99) mg/dL POC Glucose (mg/dL) 180 H (75-99) mg/dL Magnesium 2.4 H (1.6-2.3) mg/dL Total Bilirubin 1.5 H (0.2-1.3) mg/dL AST 80 H (17-59) U/L ALT 287 H (21-72) U/L Alkaline Phosphatase 200 H (38-126) U/L Total Protein 6.2 L (6.3-8.2) g/dL Albumin 2.8 L (3.5-5.0) g/dL Microbiology - Last 24 Hours (Table) 11/17/16 16:30 Blood Culture Gram Stain - Preliminary Blood Blood Culture - Preliminary Gram Neg Bacilli 11/19/16 10:46 Urine Culture - Preliminary Urine,Catheterized 11/17/16 11:55 Blood Culture - Preliminary Blood No Growth after 48 hours 11/17/16 12:03 Blood Culture - Preliminary Blood No Growth after 48 hours 11/18/16 23:00 Catheter Tip Culture - Preliminary Catheter Tip 11/17/16 16:30 Blood Culture - Preliminary Blood Assessment and Plan Plan: Assessment: #1. Dialysis-dependent acute kidney injury secondary to cardiorenal syndrome. No evidence of renal recovery. #2. Klebsiella oxytoca bacteremia with permacath being the likely source of infection. #3. Urinary tract infection with urine culture positive for Pseudomonas. #4. Sacral decubitus wound culture positive for MRSA. #5. Hypotension maintained on Midodrine. #6. Metabolic acidosis secondary to acute kidney injury. #7. Anemia. Hemoglobin stable. Plan: Hold dialysis today. Monitor blood cultures as well as catheter tip culture which was sent on November 18. Blood cultures from November 17 are positive for gram-negative bacilli. Repeat peripheral blood cultures today. Maintain IV Lasix. Maintain Aranesp. Maintain oral sodium bicarbonate supplementation. Monitor renal function and urine output closely and will assess the need for renal replacement therapy on a day-to-day basis. He will likely require femoral catheter for dialysis as his cultures are still positive.
[2016-11-20 11:11] LABS: Glucose,Whole Blood 240 mg/dL (75-99)
--- NOTE | 2016-11-20 15:50 | P.PN ---
Subjective Principal diagnosis: Hypotension, febrile illness. This is a very pleasant 81-year-old gentleman who follows with Dr. Hernandez in our office. He has a history of atrial fibrillation, congestive heart failure, diabetes mellitus, hyperlipidemia, hypertension and previous pneumonia and influenza B infections. He was here in October 2016 subsequent discharge to [facility] for inpatient rehabilitation and was home only a short period of time. He does have end-stage renal failure and receives hemodialysis 3 days a week. He was at the dialysis center when he had developed significant weakness and fever with lethargy. He was brought here for the same. Her previous blood culture had revealed Klebsiella. He is seen again today in follow-up in the intensive care unit. He is awake and alert in no acute distress. He did receive dialysis again this morning. He's been hemodynamically stable. He is on 2 L/m per nasal cannula maintaining good O2 saturations in the upper 90s. He has a 0.9 normal saline at 50 MLS per hour. Denies any shortness of breath, cough or congestion. No chest pain, lightheadedness or dizziness. The patient is seen again today 11/20/2016 in follow-up on the regular medical floor. He did test positive for MRSA in his wound, pseudomonas aeruginosa and his urine and Klebsiella oxytoca in his blood. His follow-up blood culture from 11/17/2016 is also showing gram-negative bacilli. He remains on vancomycin and meropenem. His current white count is 9.2. He's been afebrile. He is maintaining good O2 saturations in the 90s on room air. He has been hemodynamically stable. He remains quite weak but is currently sitting up in the chair at the bedside. He denies any worsening shortness of breath, cough or congestion. Objective - Vital Signs Vital signs: Vital Signs Temp 97.7 F 11/20/16 15:00 Pulse 83 11/20/16 15:00 Resp 18 11/20/16 15:00 BP 94/57 11/20/16 15:00 Pulse Ox 97 11/20/16 15:00 Intake & Output 11/19/16 11/20/16 11/20/16 18:59 06:59 18:59 Intake Total 558.938 100 240 Output Total 17 1 1 Balance 541.938 99 239 Weight 61.8 kg Intake: IV 30 240 ns 30 240 Intake, IV Titration 328.938 Amount Magnesium Sulfate-D5w Pmx 200 1 gm In Dextrose/Water 1 100ml.bag @ 100 mls/hr IVPB Q1H [facility] Rx#: [id number] Meropenem 1 gm In Sodium 100 Chloride 0.9% 100 ml @ 200 mls/hr IVPB Q24HR [facility] Rx#:[id number] Norepinephrin 4 mg-0.9% 18.938 Ns Pmx 4 mg In 250 ml @ 1 MCG/MIN 3.75 mls/hr IV . Q24H [facility] Rx#:[id number] Sodium Chloride 0.9% 1, 10 000 ml @ 50 mls/hr IV . Q20H [facility] Rx#:[id number] Oral 200 100 Output: Urine 15 Stool 2 1 1 Other: Voiding Method Bedside Commode Bedside Commode Bedside Commode # Voids 1 2 # Bowel Movements 1 - Exam GENERAL EXAM: Frail, cachectic. Alert, comfortable in no apparent distress. HEAD: Normocephalic. EYES: Normal reaction of pupils, equal size. NOSE: Clear with pink turbinates. THROAT: No erythema or exudates. NECK: No masses, no JVD. CHEST: No chest wall deformity. LUNGS: Equal air entry with no crackles, wheeze, rhonchi or dullness. CVS: S1 and S2 normal with no audible murmurs, regular rhythm. ABDOMEN: No hepatosplenomegaly, normal bowel sounds, no guarding or rigidity. SPINE: No scoliosis or deformity SKIN: No rashes CENTRAL NERVOUS SYSTEM: No focal deficits, tone is normal in all 4 extremities. Extremities: There is trace peripheral edema. No clubbing, no cyanosis. Peripheral pulses are intact. - Labs CBC & Chem 7: 11/20/16 07:45 11/20/16 07:45 Labs: Abnormal Lab Results - Last 24 Hours (Table) 11/19/16 11/19/16 11/20/16 Range/Units 17:18 20:41 07:32 RBC (4.30-5.90) m/uL Hgb (13.0-17.5) gm/dL Hct (39.0-53.0) % MCV (80.0-100.0) fL MCHC (31.0-37.0) g/dL RDW (11.5-15.5) % Plt Count (150-450) k/uL BUN (9-20) mg/dL Creatinine (0.66-1.25) mg/dL Glucose (74-99) mg/dL POC Glucose (mg/dL) 229 H 183 H 180 H (75-99) mg/dL Magnesium (1.6-2.3) mg/dL Total Bilirubin (0.2-1.3) mg/dL AST (17-59) U/L ALT (21-72) U/L Alkaline Phosphatase (38-126) U/L Total Protein (6.3-8.2) g/dL Albumin (3.5-5.0) g/dL 11/20/16 11/20/16 11/20/16 Range/Units 07:45 07:45 11:09 RBC 3.22 L (4.30-5.90) m/uL Hgb 10.0 L (13.0-17.5) gm/dL Hct 32.6 L (39.0-53.0) % MCV 101.0 H (80.0-100.0) fL MCHC 30.7 L (31.0-37.0) g/dL RDW 17.3 H (11.5-15.5) % Plt Count 122 L (150-450) k/uL BUN 26 H (9-20) mg/dL Creatinine 2.73 H (0.66-1.25) mg/dL Glucose 184 H (74-99) mg/dL POC Glucose (mg/dL) 240 H (75-99) mg/dL Magnesium 2.4 H (1.6-2.3) mg/dL Total Bilirubin 1.5 H (0.2-1.3) mg/dL AST 80 H (17-59) U/L ALT 287 H (21-72) U/L Alkaline Phosphatase 200 H (38-126) U/L Total Protein 6.2 L (6.3-8.2) g/dL Albumin 2.8 L (3.5-5.0) g/dL Microbiology - Last 24 Hours (Table) 11/17/16 11:55 Blood Culture - Preliminary Blood No Growth after 72 hours 11/17/16 12:03 Blood Culture - Preliminary Blood No Growth after 72 hours 11/17/16 16:30 Blood Culture Gram Stain - Preliminary Blood Blood Culture - Preliminary Gram Neg Bacilli 11/19/16 10:46 Urine Culture - Preliminary Urine,Catheterized 11/18/16 23:00 Catheter Tip Culture - Preliminary Catheter Tip Assessment and Plan Plan: Impression: #1 Sepsis secondary to Klebsiella oxytoca in his blood, pseudomonas aeruginosa in the urine culture, and MRSA in the wound culture. Currently on vancomycin and meropenem. #2 End-stage renal failure receiving hemodialysis. Current creatinine 2.73. #3 Atrial fibrillation. #4 History of congestive heart failure. #5 Diabetes mellitus. #6 Hyperlipidemia. #7 Hypertension. #8 Poor overall functional performance based on the above-mentioned comorbidities. Recent extended care facility resident. Plan: The patient was seen and evaluated by Dr. Hernandez. He is doing well from the pulmonary and critical care standpoint. We'll continue with his present treatment. We'll increase his activity as tolerated. We'll continue to follow.
[2016-11-20 17:40] LABS: Glucose,Whole Blood 184 mg/dL (75-99)
[2016-11-20] MEDS: ATORVASTATIN 10 MG TAB PO SCH (20:17)
[2016-11-20] MEDS: FOLIC ACID-VIT B COMPLEX-VIT C 1 CAP PO SCH (20:17)
[2016-11-20 20:55] LABS: Glucose,Whole Blood 160 mg/dL (75-99)
[2016-11-20] MEDS ORDERED: VANCOMYCIN 1,000 MG in SODIUM CHLORIDE 0.9% 250 ML IVPB ONE (21:00)
--- NOTE | 2016-11-20 23:01 | P.PN ---
Subjective Principal diagnosis: Sepsis This is an 81-year-old male. He had a hospitalization in August 2016 for acute kidney injury and was started on hemodialysis Thursday, , Thursday. He was seen on that hospitalization by Dr. Mc from infectious disease for Pseudomonas tracheobronchitis or pneumonia. His most recent hospitalization from October 14 through October 18 which time he was treated for urinary tract infection with enterococcus for which patient was treated on ampicillin and was discharged on 7 days as well as Clarke catheter in place. Patient went to [facility] and was discharged from there on November 05. Patient states he was doing well and using a walker and gaining his strength back. He has been following with hemodialysis center and they had noted that he had a fever and blood cultures were obtained on 11/11 which Klebsiella oxytoca, sensitivity not available. Patient was sent into [facility] emergency center for evaluation and found to be tachycardic, hypotensive with leukocytosis initially of 31.4 area and platelet count 143 and he does have history of mild thrombocytopenia. Hemoglobin is 9.3. BUN 23 and creatinine 2.04. Albumin 3. Urinalysis was turbid, leukoesterase large, blood moderate, WBCs greater than 182. Bacteria moderate. 2 blood cultures have status received. Urine culture is in process. There are consult in place for Dr. Ibrahim for intensive care management and nephrology. Chest x-ray is showing no acute pulmonary disease. Patient is also known to have a decubitus ulcer to the coccyx stage II. Patient had Clarke catheter removed on November 05. His most recent urine culture on October 14 positive for Enterococcus faecalis (not VRE) and Monet. Patient also has significant history of chronic atrial fibrillation on amiodarone and eliquis as well as chronic systolic heart failure and nonischemic cardiomyopathy with AICD. Patient remains ill. Ongoing difficulty with the Klebsiella sepsis. His remaining hypotensive. The case is discussed with vascular surgery and nephrology. Catheter removed for dialysis. Cultures from the are positive. Follow-up cultures are pending. Objective - Vital Signs Vital signs: Vital Signs Temp 96.4 F L 11/20/16 22:23 Pulse 88 11/20/16 22:23 Resp 16 11/20/16 22:23 BP 110/56 11/20/16 22:23 Pulse Ox 95 11/20/16 22:23 Intake & Output 11/20/16 11/20/16 11/21/16 06:59 18:59 06:59 Intake Total 100 240 Output Total 1 17 Balance 99 223 Weight 61.8 kg Intake: IV 240 ns 240 Oral 100 Output: Urine 15 Stool 1 2 Other: Voiding Method Bedside Commode Bedside Commode Bedside Commode # Voids 1 1 # Bowel Movements 1 - Exam Gen: This is an 81-year-old male. On the medical floor. Seems comfortable. Is attempting some nutrition. Improve strength. HEENT: Head is atraumatic, normocephalic. Pupils equal, round. Sclerae is anicteric. Oral mucous membranes are slightly dry. NECK: Supple. No JVD. No lymphadenopathy. No thyromegaly. The right IJ catheter is without tenderness or expressible purulence LUNGS: Clear to auscultation. No wheezes or rhonchi. No intercostal retractions. HEART: Irregular rate and rhythm. No murmur. Dialysis catheter to the right upper anterior chest wall without tenderness. ABDOMEN: Soft. Bowel sounds are present. No masses. No tenderness. EXTREMITIES: Bilateral pedal edema more so on the right. Dorsalis pedis is weak bilaterally. NEUROLOGICAL: Patient is awake, alert and oriented x3. Cranial nerves 2 through 12 are grossly intact. Significant edema of the penis and scrotum is noticed. - Labs CBC & Chem 7: 11/20/16 07:45 11/20/16 07:45 Labs: Abnormal Lab Results - Last 24 Hours (Table) 11/20/16 11/20/16 11/20/16 Range/Units 07:32 07:45 07:45 RBC 3.22 L (4.30-5.90) m/uL Hgb 10.0 L (13.0-17.5) gm/dL Hct 32.6 L (39.0-53.0) % MCV 101.0 H (80.0-100.0) fL MCHC 30.7 L (31.0-37.0) g/dL RDW 17.3 H (11.5-15.5) % Plt Count 122 L (150-450) k/uL BUN 26 H (9-20) mg/dL Creatinine 2.73 H (0.66-1.25) mg/dL Glucose 184 H (74-99) mg/dL POC Glucose (mg/dL) 180 H (75-99) mg/dL Magnesium 2.4 H (1.6-2.3) mg/dL Total Bilirubin 1.5 H (0.2-1.3) mg/dL AST 80 H (17-59) U/L ALT 287 H (21-72) U/L Alkaline Phosphatase 200 H (38-126) U/L Total Protein 6.2 L (6.3-8.2) g/dL Albumin 2.8 L (3.5-5.0) g/dL 11/20/16 11/20/16 11/20/16 Range/Units 11:09 17:13 20:40 RBC (4.30-5.90) m/uL Hgb (13.0-17.5) gm/dL Hct (39.0-53.0) % MCV (80.0-100.0) fL MCHC (31.0-37.0) g/dL RDW (11.5-15.5) % Plt Count (150-450) k/uL BUN (9-20) mg/dL Creatinine (0.66-1.25) mg/dL Glucose (74-99) mg/dL POC Glucose (mg/dL) 240 H 184 H 160 H (75-99) mg/dL Magnesium (1.6-2.3) mg/dL Total Bilirubin (0.2-1.3) mg/dL AST (17-59) U/L ALT (21-72) U/L Alkaline Phosphatase (38-126) U/L Total Protein (6.3-8.2) g/dL Albumin (3.5-5.0) g/dL Microbiology - Last 24 Hours (Table) 11/17/16 11:55 Blood Culture - Preliminary Blood No Growth after 72 hours 11/17/16 12:03 Blood Culture - Preliminary Blood No Growth after 72 hours 11/17/16 16:30 Blood Culture Gram Stain - Preliminary Blood Blood Culture - Preliminary Gram Neg Bacilli 11/19/16 10:46 Urine Culture - Preliminary Urine,Catheterized Laboratory Results WBC 9.2 k/uL (3.8-10.6) 11/20/16 07:45 RBC 3.22 m/uL (4.30-5.90) L 11/20/16 07:45 Hgb 10.0 gm/dL (13.0-17.5) L 11/20/16 07:45 Hct 32.6 % (39.0-53.0) L 11/20/16 07:45 MCV 101.0 fL (80.0-100.0) H 11/20/16 07:45 MCH 31.0 pg (25.0-35.0) 11/20/16 07:45 MCHC 30.7 g/dL (31.0-37.0) L 11/20/16 07:45 RDW 17.3 % (11.5-15.5) H 11/20/16 07:45 Plt Count 122 k/uL (150-450) L 11/20/16 07:45 Neutrophils % 89 % 11/18/16 05:22 Neutrophils % (Manual) 91.0 % 11/13/16 17:16 Band Neutrophils % 5.0 % 11/13/16 17:16 Lymphocytes % 6 % 11/18/16 05:22 Lymphocytes % (Manual) 2.5 % 11/13/16 17:16 Monocytes % 4 % 11/18/16 05:22 Monocytes % (Manual) 1.5 % 11/13/16 17:16 Eosinophils % 0 % 11/18/16 05:22 Basophils % 0 % 11/18/16 05:22 Neutrophils # 14.1 k/uL (1.3-7.7) H 11/18/16 05:22 Neutrophils # (Manual) 30.1 k/uL (1.3-7.7) H 11/13/16 17:16 Lymphocytes # 1.0 k/uL (1.0-4.8) 11/18/16 05:22 Lymphocytes # (Manual) 0.8 k/uL (1.0-4.8) L 11/13/16 17:16 Monocytes # 0.6 k/uL (0-1.0) 11/18/16 05:22 Monocytes # (Manual) 0.5 k/uL (0-1.0) 11/13/16 17:16 Eosinophils # 0.1 k/uL (0-0.7) 11/18/16 05:22 Basophils # 0.0 k/uL (0-0.2) 11/18/16 05:22 Nucleated RBCs 0 /100 WBC (0-0) 11/13/16 17:16 Manual Slide Review Performed 11/13/16 17:16 Polychromasia Present 11/13/16 17:16 Hypochromasia Marked 11/20/16 07:45 Anisocytosis Slight 11/20/16 07:45 Anisocytosis (manual) Present 11/13/16 17:16 Macrocytosis Slight 11/20/16 07:45 PT 12.6 sec (9.0-12.0) H 11/13/16 17:16 INR 1.3 (<1.1) 11/13/16 17:16 APTT 22.1 sec (22.0-30.0) 11/13/16 17:16 Sodium 139 mmol/L (137-145) 11/20/16 07:45 Potassium 4.6 mmol/L (3.5-5.1) 11/20/16 07:45 Chloride 103 mmol/L (98-107) 11/20/16 07:45 Carbon Dioxide 23 mmol/L (22-30) 11/20/16 07:45 Anion Gap 13 mmol/L 11/20/16 07:45 BUN 26 mg/dL (9-20) H 11/20/16 07:45 Creatinine 2.73 mg/dL (0.66-1.25) H 11/20/16 07:45 Est GFR (MDRD) Af Amer 27 (>60 ml/min/1.73 sqM) 11/20/16 07:45 Est GFR (MDRD) Non-Af 23 (>60 ml/min/1.73 sqM) 11/20/16 07:45 Glucose 184 mg/dL (74-99) H 11/20/16 07:45 POC Glucose (mg/dL) 160 mg/dL (75-99) H 11/20/16 20:40 POC Glu [place] Etl Developer ID Maci Lewis 11/20/16 20:[address] Glu mg/dL 91 mg/dL 11/14/16 04:31 Hemoglobin A1c 4.8 % (4.2-6.1) 11/14/16 04:31 Plasma Lactic Acid Chase 1.9 mmol/L (0.7-2.0) 11/14/16 08:50 Calcium 8.5 mg/dL (8.4-10.2) 11/20/16 07:45 Phosphorus 3.9 mg/dL (2.5-4.5) 11/20/16 07:45 Magnesium 2.4 mg/dL (1.6-2.3) H 11/20/16 07:45 Total Bilirubin 1.5 mg/dL (0.2-1.3) H 11/20/16 07:45 AST 80 U/L (17-59) H 11/20/16 07:45 ALT 287 U/L (21-72) H 11/20/16 07:45 Alkaline Phosphatase 200 U/L (38-126) H 11/20/16 07:45 Total Creatine Kinase 22 U/L (55-170) L 11/13/16 17:16 CK-MB (CK-2) 1.6 ng/mL (0.0-2.4) 11/13/16 17:16 CK-MB (CK-2) Rel Index 7.3 11/13/16 17:16 Troponin I 0.028 ng/mL (0.000-0.034) 11/13/16 17:16 Total Protein 6.2 g/dL (6.3-8.2) L 11/20/16 07:45 Albumin 2.8 g/dL (3.5-5.0) L 11/20/16 07:45 Cortisol 61 ug/dL 11/16/16 14:45 Urine Color [place] 11/13/16 18:50 Urine Appearance Turbid (Clear) 11/13/16 18:50 Urine pH 5.5 (5.0-8.0) 11/13/16 18:50 Ur Specific [place] 1.017 (1.001-1.035) 11/13/16 18:50 Urine Protein 2+ (Negative) H 11/13/16 18:50 Urine Glucose (UA) Negative (Negative) 11/13/16 18:50 Urine Ketones Negative (Negative) 11/13/16 18:50 Urine Blood Moderate (Negative) H 11/13/16 18:50 Urine Nitrite Negative (Negative) 11/13/16 18:50 Urine Bilirubin 1+ (Negative) H 11/13/16 18:50 Urine Urobilinogen 4.0 mg/dL (<2.0) 11/13/16 18:50 Ur Leukocyte Esterase Large (Negative) H 11/13/16 18:50 Urine RBC 16 /hpf (0-5) H 11/13/16 18:50 Urine WBC >182 /hpf (0-5) H 11/13/16 18:50 Urine WBC Clumps Many /hpf (None) H 11/13/16 18:50 Urine Bacteria Moderate /hpf (None) H 11/13/16 18:50 Hyaline Casts 8 /lpf (0-2) H 11/13/16 18:50 Random Vancomycin 20.4 ug/mL 11/20/16 07:45 Microbiology 11/17/16 11:55 Blood Blood Culture - Preliminary No Growth after 72 hours 11/17/16 12:03 Blood Blood Culture - Preliminary No Growth after 72 hours 11/17/16 16:30 Blood Blood Culture Gram Stain - Preliminary 11/17/16 16:30 Blood Blood Culture - Preliminary Gram Neg Bacilli 11/19/16 10:46 Urine,Catheterized Urine Culture - Preliminary 11/18/16 23:00 Catheter Tip Catheter Tip Culture - Preliminary 11/17/16 16:30 Blood Blood Culture - Preliminary 11/13/16 17:16 Blood Blood Culture Gram Stain - Final 11/13/16 17:16 Blood Blood Culture - Final Klebsiella oxytoca 11/13/16 21:00 Blood Blood Culture Gram Stain - Final 11/13/16 21:00 Blood Blood Culture - Final Klebsiella oxytoca 11/13/16 23:09 Other - Other Gram Stain - Preliminary 11/13/16 23:09 Other - Other Wound Culture - Final Methicillin resist S. aureus 11/13/16 18:50 Urine,Catheterized Urine Culture - Final Pseudomonas aeruginosa 11/13/16 17:16 Blood Blood Culture - Final 11/13/16 21:00 Blood Blood Culture - Final Assessment and Plan (1) Fever Status: Acute (2) Sepsis Narrative/Plan: 81-year-old male has history of recent profound illness with resultant end-stage renal disease placed on hemodialysis. He now developed evidence of Klebsiella oxytoca bacteremia. It did persist over a day and now seems to be doing better at this time. However given antigram negative that was not present in his urine. The urine had pseudomonas aeruginosa. With this disconnect concern would be to the potential that there is a catheter-related infection and consequently vascular surgery removde the catheter will be dialysis free for a few days and then the catheter be replaced at that time if we have evidence of ongoing negative blood cultures. As noted the case was discussed with vascular surgery and nephrology. Blood cultures regretfully are still positive at this time. Follow-up cultures have been requested. Once negative cultures of been obtained dialysis catheter can be replaced. He is having significant genital edema in zinc can be applied to that area. Patient fortunately is feeling better at this time. Continue the Merrem for the ESBL and vancomycin for the isolated MRSA.. After catheter removal plan 2 weeks of antibiotic therapy. Status: Acute
[2016-11-21] MEDS: PANTOPRAZOLE 40 MG TABLET PO SCH (05:31)
[2016-11-21] MEDS: MIDODRINE 5 MG TAB PO SCH ×3 (05:31→21:40)
[2016-11-21 07:13] LABS: Glucose,Whole Blood 181 mg/dL (75-99)
--- NOTE | 2016-11-21 08:30 | P.PN ---
Subjective Principal diagnosis: End-stage renal disease with sepsis. This is a continue progress note on an 81-year-old white male with known history of renal failure with sepsis most likely related to UTI with catheter/ vascular related septicemia. Cultures are noted to be of different bacteria and blood cultures are still positive. I do appreciate Dr. Ferrera's approach and input on this. The patient is sitting up comfortably and feels much better. Minimal urinary retention is now noted. Objective - Vital Signs Vital signs: Vital Signs Temp 97.6 F 11/21/16 08:13 Pulse 81 11/21/16 08:13 Resp 18 11/21/16 08:13 BP 95/67 11/21/16 08:13 Pulse Ox 98 11/21/16 08:13 Intake & Output 11/20/16 11/21/16 11/21/16 18:59 06:59 18:59 Intake Total 240 240 Output Total 17 250 Balance 223 -10 Weight 61.8 kg Intake: IV 240 ns 240 Oral 240 Output: Urine 15 250 Stool 2 Other: Voiding Method Bedside Commode Bedside Commode # Voids 1 2 # Bowel Movements 1 - Constitutional General appearance: Present: thin - EENT Eyes: Absent: abnormal pupil - Neck Neck: Absent: lymphadenopathy - Respiratory Respiratory: bilateral: CTA - Cardiovascular Rhythm: irregularly irregular Heart sounds: normal: S1, S2 - Gastrointestinal General gastrointestinal: Present: soft. Absent: tenderness - Neurologic Neurologic: Present: CNII-XII intact - Musculoskeletal Musculoskeletal: Present: generalized weakness - Psychiatric Psychiatric: Present: A&O x's 3, appropriate affect - Labs CBC & Chem 7: 11/20/16 07:45 11/20/16 07:45 Labs: Abnormal Lab Results - Last 24 Hours (Table) 11/20/16 11/20/16 11/20/16 Range/Units 07:45 11:09 17:13 BUN 26 H (9-20) mg/dL Creatinine 2.73 H (0.66-1.25) mg/dL Glucose 184 H (74-99) mg/dL POC Glucose (mg/dL) 240 H 184 H (75-99) mg/dL Magnesium 2.4 H (1.6-2.3) mg/dL Total Bilirubin 1.5 H (0.2-1.3) mg/dL AST 80 H (17-59) U/L ALT 287 H (21-72) U/L Alkaline Phosphatase 200 H (38-126) U/L Total Protein 6.2 L (6.3-8.2) g/dL Albumin 2.8 L (3.5-5.0) g/dL 11/20/16 11/21/16 Range/Units 20:40 07:12 BUN (9-20) mg/dL Creatinine (0.66-1.25) mg/dL Glucose (74-99) mg/dL POC Glucose (mg/dL) 160 H 181 H (75-99) mg/dL Magnesium (1.6-2.3) mg/dL Total Bilirubin (0.2-1.3) mg/dL AST (17-59) U/L ALT (21-72) U/L Alkaline Phosphatase (38-126) U/L Total Protein (6.3-8.2) g/dL Albumin (3.5-5.0) g/dL Microbiology - Last 24 Hours (Table) 11/17/16 11:55 Blood Culture - Preliminary Blood No Growth after 72 hours 11/17/16 12:03 Blood Culture - Preliminary Blood No Growth after 72 hours Assessment and Plan (1) Sepsis Status: Acute (2) AICD (automatic cardioverter/defibrillator) present Status: Acute (3) Anemia Status: Acute (4) Atrial fibrillation with rapid ventricular response Status: Acute (5) Cardiomyopathy, nonischemic Status: Acute (6) Chronic renal failure Status: Acute (7) High risk for readmission Status: Acute Plan: Continue regimen over supportive care. Dr. Ferrera is mention that we might need to remove the catheter temporarily secondary to the fact that he's continued to have positive blood cultures. Check CMP in a.m. Dr. Obrien's group will be covering for the weekend. Time with Patient: Less than 30
[2016-11-21] MEDS: MEROPENEM 1 GM in SODIUM CHLORIDE 0.9% 100 ML IVPB SCH (08:46)
[2016-11-21] MEDS: DOCUSATE 100 MG CAP PO SCH ×2 (08:47→17:05)
[2016-11-21] MEDS: DONEPEZIL 10 MG TAB PO SCH (08:47)
[2016-11-21] MEDS: INSULIN LISPRO (humaLOG) 300 UNIT/3 ML VIAL SQ SCH ×4 (08:47→21:41)
[2016-11-21] MEDS: DORZOLAMIDE HCL 2% DROPS 10 ML BTL BOTH EYES SCH ×2 (08:47→17:05)
[2016-11-21] MEDS: MEGESTROL 400 MG/10 ML CUP PO SCH (08:47)
[2016-11-21] MEDS: TAMSULOSIN 0.4 MG CAP.ER.24H PO SCH (08:49)
[2016-11-21] MEDS: SODIUM BICARBONATE TAB 650 MG TAB PO SCH ×2 (08:49→21:40)
--- NOTE | 2016-11-21 08:49 | P.PN ---
Subjective Patient is seen in follow-up for dialysis-dependent acute kidney injury due to cardiorenal syndrome. Patient is currently being treated for gram-negative bacteremia with blood cultures positive for Klebsiella. His urine cultures positive for Pseudomonas and his wound cultures positive for MRSA. He underwent hemodialysis on November 18 and the dialysis catheter was removed. Denies any chest pain or shortness of breath. No vomiting or diarrhea. Oral intake is fair. He is off all vasopressors. Vital signs are stable. General: The patient appeared well nourished and normally developed. HEENT: Head exam is unremarkable. Neck is without jugular venous distension. LUNGS: Lungs are clear to auscultation and percussion. Breath sounds decreased. HEART: Rate and Rhythm are regular. First and second heart sounds normal. No murmurs, rubs or gallops. ABDOMEN: Abdominal exam reveals normal bowel sounds. Non-tender and non- distended. No evidence of peritonitis. EXTREMITITES: 1+ edema. Objective - Vital Signs Vital signs: Vital Signs Temp 97.6 F 11/21/16 08:13 Pulse 81 11/21/16 08:13 Resp 18 11/21/16 08:13 BP 95/67 11/21/16 08:13 Pulse Ox 98 11/21/16 08:13 Intake & Output 11/20/16 11/21/16 11/21/16 18:59 06:59 18:59 Intake Total 240 240 Output Total 17 250 Balance 223 -10 Weight 61.8 kg Intake: IV 240 ns 240 Oral 240 Output: Urine 15 250 Stool 2 Other: Voiding Method Bedside Commode Bedside Commode # Voids 1 2 # Bowel Movements 1 - Labs CBC & Chem 7: 11/20/16 07:45 11/20/16 07:45 Labs: Abnormal Lab Results - Last 24 Hours (Table) 11/20/16 11/20/16 11/20/16 Range/Units 11:09 17:13 20:40 POC Glucose (mg/dL) 240 H 184 H 160 H (75-99) mg/dL 11/21/16 Range/Units 07:12 POC Glucose (mg/dL) 181 H (75-99) mg/dL Microbiology - Last 24 Hours (Table) 11/17/16 11:55 Blood Culture - Preliminary Blood No Growth after 72 hours 11/17/16 12:03 Blood Culture - Preliminary Blood No Growth after 72 hours Assessment and Plan Plan: Assessment: #1. Dialysis-dependent acute kidney injury secondary to cardiorenal syndrome. No evidence of renal recovery. #2. Klebsiella oxytoca bacteremia with permacath being the likely source of infection. #3. Urinary tract infection with urine culture positive for Pseudomonas. #4. Sacral decubitus wound culture positive for MRSA. #5. Hypotension maintained on Midodrine. #6. Metabolic acidosis secondary to acute kidney injury. #7. Anemia. Hemoglobin stable. Plan: Monitor blood cultures as well as catheter tip culture which was sent on November 18. Blood cultures from November 17 are positive for gram-negative bacilli. Blood cultures were again sent on November 20 which are currently pending. Maintain IV Lasix. Maintain Aranesp. Maintain oral sodium bicarbonate supplementation. Patient will need a femoral catheter placed today for hemodialysis. Once blood cultures are negative for 48-72 hours, the femoral catheter can be discontinued and a new permacath can be placed.
[2016-11-21 08:57] LABS: Anisocytosis Slight; CH 29.5; CHCM 29.5; HCT 33.5 % (39.0-53.0); HDW 3.14; Hypochromasia Marked; MCH 30.1 pg (25.0-35.0); MCHC 29.8 g/dL (31.0-37.0); Macrocytosis Slight; Mean Platelet Volume 8.6; RBC 3.32 m/uL (4.30-5.90); RDW 16.9 % (11.5-15.5); WBC 8.6 k/uL (3.8-10.6)
[2016-11-21 09:02] LABS: Calcium 8.6 mg/dL (8.4-10.2); Potassium 4.6 mmol/L (3.5-5.1); Total Bilirubin 1.6 mg/dL (0.2-1.3); Total Protein 6.2 g/dL (6.3-8.2)
[2016-11-21] MEDS: FUROSEMIDE 10 MG/ML 10 ML VIAL IV SCH (11:08)
[2016-11-21 11:21] LABS: Glucose,Whole Blood 213 mg/dL (75-99)
[2016-11-21] MEDS ORDERED: LIDOCAINE 2% INJ 20 MG/ML (20 ML MDV) ONE (13:05)
[2016-11-21] MEDS ORDERED: SODIUM CHLORIDE 0.9% 500 ML IV ONE (13:12)
[2016-11-21] MEDS ORDERED: LIDOCAINE 2% INJ 20 MG/ML SQ ONE (13:30)
[2016-11-21] MEDS ORDERED: HEPARIN SODIUM 1,000 UNIT/ML VIAL ONE (13:34)
--- NOTE | 2016-11-21 13:47 | P.PCN ---
Date of Procedure: 11/21/16 Preoperative Diagnosis: hemodialysis dependent renal failure, catheter sepsis Postoperative Diagnosis: same Procedure(s) Performed: temporary right femoral dialysis catheter Implants: Anesthesia: local Surgeon: Brigitte Garay Indications for Procedure: hemodialysis dependent renal failure Operative Findings: widely patent right common femoral vein Description of Procedure: After sterile prep and drape of the right groin, the area overlying the right common femoral vein was inflilatrated with 1% lidocaine. Using ultrasound guidance a 21 G needle was placed into the vein and an 018 wire was threaded proximally. A wire and core was threaded over the wire, the core and wire were removed and an 035" wire was threaded into the IVC using fluroscopic guidance. The tract into the right common femoral vein was sequentially dilated. Finally , a temporary dialysis catheter was placed with the tip in the distal IVC. Both ports aspirated and flushed without difficulty and were capped with a solution of 1000u heparin/cc. The catheter was secured with a 3-0 nylon suture. Sterile dressing. Patient returned to room in satisfactory condition.
--- NOTE | 2016-11-21 14:45 | P.PN ---
Subjective Principal diagnosis: Hypotension, febrile illness. This is a very pleasant 81-year-old gentleman who follows with Dr. Hernandez in our office. He has a history of atrial fibrillation, congestive heart failure, diabetes mellitus, hyperlipidemia, hypertension and previous pneumonia and influenza B infections. He was here in October 2016 subsequent discharge to [facility] for inpatient rehabilitation and was home only a short period of time. He does have end-stage renal failure and receives hemodialysis 3 days a week. He was at the dialysis center when he had developed significant weakness and fever with lethargy. He was brought here for the same. Her previous blood culture had revealed Klebsiella. He is seen again today in follow-up in the intensive care unit. He is awake and alert in no acute distress. He did receive dialysis again this morning. He's been hemodynamically stable. He is on 2 L/m per nasal cannula maintaining good O2 saturations in the upper 90s. He has a 0.9 normal saline at 50 MLS per hour. Denies any shortness of breath, cough or congestion. No chest pain, lightheadedness or dizziness. The patient is seen again today 11/20/2016 in follow-up on the regular medical floor. He did test positive for MRSA in his wound, pseudomonas aeruginosa and his urine and Klebsiella oxytoca in his blood. His follow-up blood culture from 11/17/2016 is also showing gram-negative bacilli. He remains on vancomycin and meropenem. His current white count is 9.2. He's been afebrile. He is maintaining good O2 saturations in the 90s on room air. He has been hemodynamically stable. He remains quite weak but is currently sitting up in the chair at the bedside. He denies any worsening shortness of breath, cough or congestion. The patient was seen and evaluated again today 11/21/2016 in follow-up on the regular medical floor. He is awake and alert in no acute distress. He is sitting up in the chair at the bedside. He denies any worsening shortness of breath, cough or congestion. His follow-up blood cultures on 11/17/2016 are positive for gram-negative bacilli as well. Repeat culture on 11/20/2016 reveals no growth for 24 hours. The hemodialysis catheter tip culture is pending. Nephrology is on the case and was requesting a new catheter be inserted which is planned today with Dr. Garay. Objective - Vital Signs Vital signs: Vital Signs Temp 97.6 F 11/21/16 08:13 Pulse 78 11/21/16 12:00 Resp 18 11/21/16 12:00 BP 101/64 11/21/16 12:00 Pulse Ox 94 L 11/21/16 12:00 Intake & Output 11/20/16 11/21/16 11/21/16 18:59 06:59 18:59 Intake Total 240 240 115 Output Total 17 250 101 Balance 223 -10 14 Weight 61.8 kg 55.9 kg Intake: IV 240 15 ns 240 Intake, IV Titration 100 Amount Meropenem 1 gm In Sodium 100 Chloride 0.9% 100 ml @ 200 mls/hr IVPB Q24HR [facility] Rx#:[id number] Oral 240 Output: Urine 15 250 100 Stool 2 1 Other: Voiding Method Bedside Commode Bedside Commode Bedside Commode # Voids 1 2 # Bowel Movements 1 - Exam GENERAL EXAM: Frail, cachectic. Alert, comfortable in no apparent distress. HEAD: Normocephalic. EYES: Normal reaction of pupils, equal size. NOSE: Clear with pink turbinates. THROAT: No erythema or exudates. NECK: No masses, no JVD. CHEST: No chest wall deformity. LUNGS: Equal air entry with no crackles, wheeze, rhonchi or dullness. CVS: S1 and S2 normal with no audible murmurs, regular rhythm. ABDOMEN: No hepatosplenomegaly, normal bowel sounds, no guarding or rigidity. SPINE: No scoliosis or deformity SKIN: No rashes CENTRAL NERVOUS SYSTEM: No focal deficits, tone is normal in all 4 extremities. Extremities: There is trace peripheral edema. No clubbing, no cyanosis. Peripheral pulses are intact. - Labs CBC & Chem 7: 11/21/16 08:11 11/21/16 08:11 Labs: Abnormal Lab Results - Last 24 Hours (Table) 11/20/16 11/20/16 11/21/16 Range/Units 17:13 20:40 07:12 RBC (4.30-5.90) m/uL Hgb (13.0-17.5) gm/dL Hct (39.0-53.0) % MCV (80.0-100.0) fL MCHC (31.0-37.0) g/dL RDW (11.5-15.5) % Plt Count (150-450) k/uL BUN (9-20) mg/dL Creatinine (0.66-1.25) mg/dL Glucose (74-99) mg/dL POC Glucose (mg/dL) 184 H 160 H 181 H (75-99) mg/dL Total Bilirubin (0.2-1.3) mg/dL ALT (21-72) U/L Alkaline Phosphatase (38-126) U/L Total Protein (6.3-8.2) g/dL Albumin (3.5-5.0) g/dL 11/21/16 11/21/16 11/21/16 Range/Units 08:11 08:11 11:18 RBC 3.32 L (4.30-5.90) m/uL Hgb 10.0 L (13.0-17.5) gm/dL Hct 33.5 L (39.0-53.0) % MCV 101.0 H (80.0-100.0) fL MCHC 29.8 L (31.0-37.0) g/dL RDW 16.9 H (11.5-15.5) % Plt Count 129 L (150-450) k/uL BUN 34 H (9-20) mg/dL Creatinine 3.26 H (0.66-1.25) mg/dL Glucose 162 H (74-99) mg/dL POC Glucose (mg/dL) 213 H (75-99) mg/dL Total Bilirubin 1.6 H (0.2-1.3) mg/dL ALT 220 H (21-72) U/L Alkaline Phosphatase 196 H (38-126) U/L Total Protein 6.2 L (6.3-8.2) g/dL Albumin 2.9 L (3.5-5.0) g/dL Microbiology - Last 24 Hours (Table) 11/17/16 11:55 Blood Culture - Preliminary Blood No Growth after 96 hours 11/17/16 12:03 Blood Culture - Preliminary Blood No Growth after 96 hours 11/20/16 10:44 Blood Culture - Preliminary Blood No Growth after 24 hours Assessment and Plan Plan: Impression: #1 Sepsis secondary to Klebsiella oxytoca in his blood, pseudomonas aeruginosa in the urine culture, and MRSA in the wound culture. Currently on vancomycin and meropenem. #2 End-stage renal failure receiving hemodialysis. Current creatinine 3.26. #3 Atrial fibrillation. #4 History of congestive heart failure. #5 Diabetes mellitus. #6 Hyperlipidemia. #7 Hypertension. #8 Poor overall functional performance based on the above-mentioned comorbidities. Recent extended care facility resident. Plan: The patient was seen and evaluated by Dr. Hernandez. He is doing well from the pulmonary standpoint. We'll continue with his present treatment. The plan is for placement of a new hemodialysis catheter today. We'll increase his activity as tolerated. We'll continue to follow.
--- NOTE | 2016-11-21 16:58 | IR ---
EXAMINATION TYPE: IR cvc insert >=5 years DATE OF EXAM: 11/21/2016 1:58 PM COMPARISON: NONE HISTORY: Dialysis. Fluoroscopy was provided to the referring clinician. See dictated report from vascular surgery. 0.1 minute of fluoroscopy.
[2016-11-21 17:15] LABS: Glucose,Whole Blood 210 mg/dL (75-99)
[2016-11-21 21:15] LABS: Glucose,Whole Blood 198 mg/dL (75-99)
[2016-11-21] MEDS: ATORVASTATIN 10 MG TAB PO SCH (21:40)
[2016-11-21] MEDS: FOLIC ACID-VIT B COMPLEX-VIT C 1 CAP PO SCH (21:40)
--- NOTE | 2016-11-21 23:35 | P.PN ---
Subjective Principal diagnosis: Sepsis This is an 81-year-old male. He had a hospitalization in August 2016 for acute kidney injury and was started on hemodialysis Thursday, , Thursday. He was seen on that hospitalization by Dr. Mc from infectious disease for Pseudomonas tracheobronchitis or pneumonia. His most recent hospitalization from October 14 through October 18 which time he was treated for urinary tract infection with enterococcus for which patient was treated on ampicillin and was discharged on 7 days as well as Clarke catheter in place. Patient went to [facility] and was discharged from there on November 05. Patient states he was doing well and using a walker and gaining his strength back. He has been following with hemodialysis center and they had noted that he had a fever and blood cultures were obtained on 11/11 which Klebsiella oxytoca, sensitivity not available. Patient was sent into [facility] emergency center for evaluation and found to be tachycardic, hypotensive with leukocytosis initially of 31.4 area and platelet count 143 and he does have history of mild thrombocytopenia. Hemoglobin is 9.3. BUN 23 and creatinine 2.04. Albumin 3. Urinalysis was turbid, leukoesterase large, blood moderate, WBCs greater than 182. Bacteria moderate. 2 blood cultures have status received. Urine culture is in process. There are consult in place for Dr. Ibrahim for intensive care management and nephrology. Chest x-ray is showing no acute pulmonary disease. Patient is also known to have a decubitus ulcer to the coccyx stage II. Patient had Clarke catheter removed on November 05. His most recent urine culture on October 14 positive for Enterococcus faecalis (not VRE) and Monet. Patient also has significant history of chronic atrial fibrillation on amiodarone and eliquis as well as chronic systolic heart failure and nonischemic cardiomyopathy with AICD. Patient remains ill. Ongoing difficulty with the Klebsiella sepsis. His remaining hypotensive. The case is discussed with vascular surgery and nephrology. Catheter removed for dialysis. Cultures from the are positive. Cultures from negative and femoral dialysis catheter has been placed. Follow-up cultures are pending. Objective - Vital Signs Vital signs: Vital Signs Temp 97.5 F L 11/21/16 19:00 Pulse 75 11/21/16 19:00 Resp 18 11/21/16 19:00 BP 98/63 11/21/16 19:00 Pulse Ox 96 11/21/16 19:00 Intake & Output 11/21/16 11/21/16 11/22/16 06:59 18:59 06:59 Intake Total 240 115 240 Output Total 250 458 Balance -10 343 240 Weight 55.9 kg 55.9 kg Intake: IV 15 Intake, IV Titration 100 Amount Meropenem 1 gm In Sodium 100 Chloride 0.9% 100 ml @ 200 mls/hr IVPB Q24HR [facility] Rx#:[id number] Oral 240 240 Output: Urine 250 400 Post Void Residual 55 Stool 3 Other: Voiding Method Bedside Commode Bedside Commode # Voids 2 1 1 # Bowel Movements 1 - Exam Gen: This is an 81-year-old male. On the medical floor. Seems comfortable. Is attempting some nutrition. Improve strength. HEENT: Head is atraumatic, normocephalic. Pupils equal, round. Sclerae is anicteric. Oral mucous membranes are slightly dry. NECK: Supple. No JVD. No lymphadenopathy. No thyromegaly. The right IJ catheter is without tenderness or expressible purulence LUNGS: Clear to auscultation. No wheezes or rhonchi. No intercostal retractions. HEART: Irregular rate and rhythm. No murmur. Dialysis catheter to the right upper anterior chest wall without tenderness. ABDOMEN: Soft. Bowel sounds are present. No masses. No tenderness. EXTREMITIES: Bilateral pedal edema more so on the right. Dorsalis pedis is weak bilaterally. NEUROLOGICAL: Patient is awake, alert and oriented x3. Cranial nerves 2 through 12 are grossly intact. Significant edema of the penis and scrotum is noticed.better with the zinc cream. - Labs CBC & Chem 7: 11/21/16 08:11 11/21/16 08:11 Labs: Abnormal Lab Results - Last 24 Hours (Table) 11/21/16 11/21/16 11/21/16 Range/Units 07:12 08:11 08:11 RBC 3.32 L (4.30-5.90) m/uL Hgb 10.0 L (13.0-17.5) gm/dL Hct 33.5 L (39.0-53.0) % MCV 101.0 H (80.0-100.0) fL MCHC 29.8 L (31.0-37.0) g/dL RDW 16.9 H (11.5-15.5) % Plt Count 129 L (150-450) k/uL BUN 34 H (9-20) mg/dL Creatinine 3.26 H (0.66-1.25) mg/dL Glucose 162 H (74-99) mg/dL POC Glucose (mg/dL) 181 H (75-99) mg/dL Total Bilirubin 1.6 H (0.2-1.3) mg/dL ALT 220 H (21-72) U/L Alkaline Phosphatase 196 H (38-126) U/L Total Protein 6.2 L (6.3-8.2) g/dL Albumin 2.9 L (3.5-5.0) g/dL 11/21/16 11/21/16 11/21/16 Range/Units 11:18 17:14 21:07 RBC (4.30-5.90) m/uL Hgb (13.0-17.5) gm/dL Hct (39.0-53.0) % MCV (80.0-100.0) fL MCHC (31.0-37.0) g/dL RDW (11.5-15.5) % Plt Count (150-450) k/uL BUN (9-20) mg/dL Creatinine (0.66-1.25) mg/dL Glucose (74-99) mg/dL POC Glucose (mg/dL) 213 H 210 H 198 H (75-99) mg/dL Total Bilirubin (0.2-1.3) mg/dL ALT (21-72) U/L Alkaline Phosphatase (38-126) U/L Total Protein (6.3-8.2) g/dL Albumin (3.5-5.0) g/dL Microbiology - Last 24 Hours (Table) 11/17/16 16:30 Blood Culture Gram Stain - Final Blood Blood Culture - Final Stenotrophomonas maltophilia 11/17/16 11:55 Blood Culture - Preliminary Blood No Growth after 96 hours 11/17/16 12:03 Blood Culture - Preliminary Blood No Growth after 96 hours 11/20/16 10:44 Blood Culture - Preliminary Blood No Growth after 24 hours Laboratory Results WBC 8.6 k/uL (3.8-10.6) 11/21/16 08:11 RBC 3.32 m/uL (4.30-5.90) L 11/21/16 08:11 Hgb 10.0 gm/dL (13.0-17.5) L 11/21/16 08:11 Hct 33.5 % (39.0-53.0) L 11/21/16 08:11 MCV 101.0 fL (80.0-100.0) H 11/21/16 08:11 MCH 30.1 pg (25.0-35.0) 11/21/16 08:11 MCHC 29.8 g/dL (31.0-37.0) L 11/21/16 08:11 RDW 16.9 % (11.5-15.5) H 11/21/16 08:11 Plt Count 129 k/uL (150-450) L 11/21/16 08:11 Neutrophils % 89 % 11/18/16 05:22 Neutrophils % (Manual) 91.0 % 11/13/16 17:16 Band Neutrophils % 5.0 % 11/13/16 17:16 Lymphocytes % 6 % 11/18/16 05:22 Lymphocytes % (Manual) 2.5 % 11/13/16 17:16 Monocytes % 4 % 11/18/16 05:22 Monocytes % (Manual) 1.5 % 11/13/16 17:16 Eosinophils % 0 % 11/18/16 05:22 Basophils % 0 % 11/18/16 05:22 Neutrophils # 14.1 k/uL (1.3-7.7) H 11/18/16 05:22 Neutrophils # (Manual) 30.1 k/uL (1.3-7.7) H 11/13/16 17:16 Lymphocytes # 1.0 k/uL (1.0-4.8) 11/18/16 05:22 Lymphocytes # (Manual) 0.8 k/uL (1.0-4.8) L 11/13/16 17:16 Monocytes # 0.6 k/uL (0-1.0) 11/18/16 05:22 Monocytes # (Manual) 0.5 k/uL (0-1.0) 11/13/16 17:16 Eosinophils # 0.1 k/uL (0-0.7) 11/18/16 05:22 Basophils # 0.0 k/uL (0-0.2) 11/18/16 05:22 Nucleated RBCs 0 /100 WBC (0-0) 11/13/16 17:16 Manual Slide Review Performed 11/13/16 17:16 Polychromasia Present 11/13/16 17:16 Hypochromasia Marked 11/21/16 08:11 Anisocytosis Slight 11/21/16 08:11 Anisocytosis (manual) Present 11/13/16 17:16 Macrocytosis Slight 11/21/16 08:11 PT 12.6 sec (9.0-12.0) H 11/13/16 17:16 INR 1.3 (<1.1) 11/13/16 17:16 APTT 22.1 sec (22.0-30.0) 11/13/16 17:16 Sodium 137 mmol/L (137-145) 11/21/16 08:11 Potassium 4.6 mmol/L (3.5-5.1) 11/21/16 08:11 Chloride 100 mmol/L (98-107) 11/21/16 08:11 Carbon Dioxide 24 mmol/L (22-30) 11/21/16 08:11 Anion Gap 13 mmol/L 11/21/16 08:11 BUN 34 mg/dL (9-20) H 11/21/16 08:11 Creatinine 3.26 mg/dL (0.66-1.25) H 11/21/16 08:11 Est GFR (MDRD) Af Amer 22 (>60 ml/min/1.73 sqM) 11/21/16 08:11 Est GFR (MDRD) Non-Af 18 (>60 ml/min/1.73 sqM) 11/21/16 08:11 Glucose 162 mg/dL (74-99) H 11/21/16 08:11 POC Glucose (mg/dL) 198 mg/dL (75-99) H 11/21/16 21:07 POC Glu Bias Cutting Machine Operator ID Joie Jean 11/21/16 21:[address] Glu mg/dL 91 mg/dL 11/14/16 04:31 Hemoglobin A1c 4.8 % (4.2-6.1) 11/14/16 04:31 Plasma Lactic Acid Chase 1.9 mmol/L (0.7-2.0) 11/14/16 08:50 Calcium 8.6 mg/dL (8.4-10.2) 11/21/16 08:11 Phosphorus 3.9 mg/dL (2.5-4.5) 11/20/16 07:45 Magnesium 2.4 mg/dL (1.6-2.3) H 11/20/16 07:45 Total Bilirubin 1.6 mg/dL (0.2-1.3) H 11/21/16 08:11 AST 45 U/L (17-59) 11/21/16 08:11 ALT 220 U/L (21-72) H 11/21/16 08:11 Alkaline Phosphatase 196 U/L (38-126) H 11/21/16 08:11 Total Creatine Kinase 22 U/L (55-170) L 11/13/16 17:16 CK-MB (CK-2) 1.6 ng/mL (0.0-2.4) 11/13/16 17:16 CK-MB (CK-2) Rel Index 7.3 11/13/16 17:16 Troponin I 0.028 ng/mL (0.000-0.034) 11/13/16 17:16 Total Protein 6.2 g/dL (6.3-8.2) L 11/21/16 08:11 Albumin 2.9 g/dL (3.5-5.0) L 11/21/16 08:11 Cortisol 61 ug/dL 11/16/16 14:45 Urine Color [place] 11/13/16 18:50 Urine Appearance Turbid (Clear) 11/13/16 18:50 Urine pH 5.5 (5.0-8.0) 11/13/16 18:50 Ur Specific [place] 1.017 (1.001-1.035) 11/13/16 18:50 Urine Protein 2+ (Negative) H 11/13/16 18:50 Urine Glucose (UA) Negative (Negative) 11/13/16 18:50 Urine Ketones Negative (Negative) 11/13/16 18:50 Urine Blood Moderate (Negative) H 11/13/16 18:50 Urine Nitrite Negative (Negative) 11/13/16 18:50 Urine Bilirubin 1+ (Negative) H 11/13/16 18:50 Urine Urobilinogen 4.0 mg/dL (<2.0) 11/13/16 18:50 Ur Leukocyte Esterase Large (Negative) H 11/13/16 18:50 Urine RBC 16 /hpf (0-5) H 11/13/16 18:50 Urine WBC >182 /hpf (0-5) H 11/13/16 18:50 Urine WBC Clumps Many /hpf (None) H 11/13/16 18:50 Urine Bacteria Moderate /hpf (None) H 11/13/16 18:50 Hyaline Casts 8 /lpf (0-2) H 11/13/16 18:50 Random Vancomycin 20.4 ug/mL 11/20/16 07:45 Microbiology 11/17/16 16:30 Blood Blood Culture Gram Stain - Final 11/17/16 16:30 Blood Blood Culture - Final Stenotrophomonas maltophilia 11/17/16 11:55 Blood Blood Culture - Preliminary No Growth after 96 hours 11/17/16 12:03 Blood Blood Culture - Preliminary No Growth after 96 hours 11/20/16 10:44 Blood Blood Culture - Preliminary No Growth after 24 hours 11/19/16 10:46 Urine,Catheterized Urine Culture - Preliminary 11/18/16 23:00 Catheter Tip Catheter Tip Culture - Preliminary 11/17/16 16:30 Blood Blood Culture - Preliminary 11/13/16 17:16 Blood Blood Culture Gram Stain - Final 11/13/16 17:16 Blood Blood Culture - Final Klebsiella oxytoca 11/13/16 21:00 Blood Blood Culture Gram Stain - Final 11/13/16 21:00 Blood Blood Culture - Final Klebsiella oxytoca 11/13/16 23:09 Other - Other Gram Stain - Preliminary 11/13/16 23:09 Other - Other Wound Culture - Final Methicillin resist S. aureus 11/13/16 18:50 Urine,Catheterized Urine Culture - Final Pseudomonas aeruginosa 11/13/16 17:16 Blood Blood Culture - Final 11/13/16 21:00 Blood Blood Culture - Final Assessment and Plan (1) Fever Status: Acute (2) Sepsis Narrative/Plan: 81-year-old male has history of recent profound illness with resultant end-stage renal disease placed on hemodialysis. He now developed evidence of Klebsiella oxytoca bacteremia. It did persist over a day and now seems to be doing better at this time. However given antigram negative that was not present in his urine. The urine had pseudomonas aeruginosa. With this disconnect concern would be to the potential that there is a catheter-related infection and consequently vascular surgery removde the catheter will be dialysis free for a few days and then the catheter be replaced at that time if we have evidence of ongoing negative blood cultures. As noted the case was discussed with vascular surgery and nephrology. Blood cultures regretfully are still positive at this time. Follow-up cultures have been requested. Once negative cultures of been obtained dialysis catheter can be replaced. He is having significant genital edema in zinc can be applied to that area. Patient fortunately is feeling better at this time. Continue the Merrem for the ESBL and vancomycin for the isolated MRSA.. plan 2 weeks of antibiotic therapy.Since relates to his hemodialysis catheter. The dialysis center should provide the antibiotic therapy Orl aleast access to instill the antibioitics at dialysis. Status: Acute
[2016-11-22] MEDS: FUROSEMIDE 10 MG/ML 10 ML VIAL IV SCH ×3 (00:57→23:33)
[2016-11-22] MEDS: MIDODRINE 5 MG TAB PO SCH ×3 (06:19→21:28)
[2016-11-22] MEDS: PANTOPRAZOLE 40 MG TABLET PO SCH (06:19)
[2016-11-22 07:59] LABS: Glucose,Whole Blood 101 mg/dL (75-99)
[2016-11-22] MEDS: INSULIN LISPRO (humaLOG) 300 UNIT/3 ML VIAL SQ SCH ×4 (08:52→21:30)
[2016-11-22 09:07] LABS: Calcium 8.3 mg/dL (8.4-10.2); Potassium 4.1 mmol/L (3.5-5.1)
[2016-11-22] MEDS: DOCUSATE 100 MG CAP PO SCH ×2 (09:07→16:31)
[2016-11-22] MEDS: DONEPEZIL 10 MG TAB PO SCH (09:08)
[2016-11-22] MEDS: DORZOLAMIDE HCL 2% DROPS 10 ML BTL BOTH EYES SCH ×2 (09:08→16:31)
[2016-11-22] MEDS: MEGESTROL 400 MG/10 ML CUP PO SCH (09:08)
[2016-11-22] MEDS: MEROPENEM 1 GM in SODIUM CHLORIDE 0.9% 100 ML IVPB SCH (09:09)
[2016-11-22] MEDS: SODIUM BICARBONATE TAB 650 MG TAB PO SCH ×2 (09:09→21:28)
[2016-11-22] MEDS: TAMSULOSIN 0.4 MG CAP.ER.24H PO SCH (09:09)
--- NOTE | 2016-11-22 10:27 | P.PN ---
Subjective Patient is seen in follow-up for dialysis-dependent acute kidney injury due to cardiorenal syndrome. Patient is currently being treated for gram-negative bacteremia with blood cultures positive for Klebsiella. His blood cultures from November 17 are positive for stenotrophomonas maltophilia. His urine culture is positive for Pseudomonas and Monet albicans and his wound cultures positive for MRSA. P-cath was removed 11/18. Denies any chest pain or shortness of breath. No vomiting or diarrhea. Oral intake is fair. He is off all vasopressors. A femoral catheter was placed on November 21. Vital signs are stable. General: The patient appeared well nourished and normally developed. HEENT: Head exam is unremarkable. Neck is without jugular venous distension. LUNGS: Lungs are clear to auscultation and percussion. Breath sounds decreased. HEART: Rate and Rhythm are regular. First and second heart sounds normal. No murmurs, rubs or gallops. ABDOMEN: Abdominal exam reveals normal bowel sounds. Non-tender and non- distended. No evidence of peritonitis. EXTREMITITES: 1+ edema. Objective - Vital Signs Vital signs: Vital Signs Temp 97.4 F L 11/22/16 07:00 Pulse 68 11/22/16 07:00 Resp 20 11/22/16 07:00 BP 86/57 11/22/16 07:00 Pulse Ox 98 11/22/16 07:00 Intake & Output 11/21/16 11/22/16 11/22/16 18:59 06:59 18:59 Intake Total 115 480 Output Total 458 Balance -343 480 Weight 55.9 kg 83 kg Intake: IV 15 Intake, IV Titration 100 Amount Meropenem 1 gm In Sodium 100 Chloride 0.9% 100 ml @ 200 mls/hr IVPB Q24HR [facility] Rx#:[id number] Oral 480 Output: Urine 400 Post Void Residual 55 Stool 3 Other: Voiding Method Bedside Commode Bedside Commode Bedside Commode Urinal Urinal # Voids 1 1 # Bowel Movements 1 - Labs CBC & Chem 7: 11/21/16 08:11 11/22/16 08:12 Labs: Abnormal Lab Results - Last 24 Hours (Table) 11/21/16 11/21/16 11/21/16 Range/Units 11:18 17:14 21:07 Sodium (137-145) mmol/L BUN (9-20) mg/dL Creatinine (0.66-1.25) mg/dL Glucose (74-99) mg/dL POC Glucose (mg/dL) 213 H 210 H 198 H (75-99) mg/dL Calcium (8.4-10.2) mg/dL 11/22/16 11/22/16 Range/Units 07:46 08:12 Sodium 136 L (137-145) mmol/L BUN 21 H (9-20) mg/dL Creatinine 2.20 H (0.66-1.25) mg/dL Glucose 105 H (74-99) mg/dL POC Glucose (mg/dL) 101 H (75-99) mg/dL Calcium 8.3 L (8.4-10.2) mg/dL Microbiology - Last 24 Hours (Table) 11/19/16 10:46 Urine Culture - Final Urine,Catheterized Monet albicans 11/17/16 16:30 Blood Culture Gram Stain - Final Blood Blood Culture - Final Stenotrophomonas maltophilia 11/17/16 11:55 Blood Culture - Preliminary Blood No Growth after 96 hours 11/17/16 12:03 Blood Culture - Preliminary Blood No Growth after 96 hours 11/20/16 10:44 Blood Culture - Preliminary Blood No Growth after 24 hours Assessment and Plan Plan: Assessment: #1. Dialysis-dependent acute kidney injury secondary to cardiorenal syndrome. No evidence of renal recovery. #2. Klebsiella oxytoca bacteremia with permacath being the likely source of infection. Blood cultures from 11/17 positive for stenotrophomonas maltophilia. #3. Urinary tract infection with urine culture positive for Pseudomonas. Repeat Ucx from 11/19 positive for Monet albicans. #4. Sacral decubitus wound culture positive for MRSA. #5. Hypotension maintained on Midodrine. #6. Metabolic acidosis secondary to acute kidney injury. #7. Anemia. Hemoglobin stable. Plan: Maintain IV Lasix. Maintain Aranesp. Maintain oral sodium bicarbonate supplementation. Hemodialysis today with goal 2-3 L ultrafiltration. Antibiotics per infectious disease recommendations.
[2016-11-22 12:20] LABS: Glucose,Whole Blood 94 mg/dL (75-99)
--- NOTE | 2016-11-22 14:56 | PN ---
DATE OF SERVICE: 11/22/2016 INTERVAL HISTORY: Mr. Qureshi is an 81-year-old male who follows with Dr. Hernandez as outpatient. He has a past medical history of hypertension, hyperlipidemia, diabetes mellitus, congestive heart failure, atrial fibrillation. He was admitted to the hospital with significant weakness, fever and lethargy. His blood cultures have been positive for klebsiella and his wound culture was positive for MRSA and his urine was positive for Pseudomonas aeruginosa. He was on vancomycin and Meropenem. Subsequently his antibiotics were tapered to Meropenem as of now. Patient's Perm-A-Cath has been removed and he had a new dialysis access placed in his right groin yesterday. Patient remains afebrile and hemodynamically stable. REVIEW OF SYSTEMS: CONSTITUTIONAL: Denies having any fevers, chills or rigors. RESPIRATORY: No cough. No difficulty in breathing. CARDIAC: No chest pain or palpitations. The patient complains of generalized weakness. PHYSICAL EXAMINATION: VITAL SIGNS: Temperature 97.4, heart rate 68, respiratory rate 20, blood pressure 80/57. Saturating at 98% on room air. GENERAL EXAMINATION: Patient is a thin, very cachectic male lying in bed. Appears to be in no acute distress. HEAD: Atraumatic, normocephalic. EYES: Pupils round and reactive to light. NOSE: No nasal congestion. NECK: No masses. CHEST: Bilateral breath sounds are positive. LUNGS: Clear to auscultation. CVS: S1, S2 heard. ABDOMEN: Soft, nontender. Bowel sounds positive. EXTREMITIES: No edema. No cyanosis. ASSISTANT PROPERTY MANAGER: Alert, awake, oriented x3. No focal neurological deficits on gross examination. EXTREMITIES: bilateral pitting pedal edema. No clubbing. No cyanosis. PATIENT'S LABS: Sodium 133, potassium 4.1, chloride 103, bicarb 25. BUN 21, creatinine 2.20. ASSESSMENT AND PLAN: 1. Sepsis secondary to Klebsiella oxytoca in blood, Pseudomonas aeruginosa in the urine culture and methicillin-resistant Staphylococcus aureus in the wound. Patient is currently on Meropenem as per CATHY Ferrera's recommendations. 2. End-stage renal disease, on hemodialysis. He is currently getting his dialysis. 3. Atrial fibrillation. 4. History of congestive heart failure; systolic heart failure; not in acute exacerbation. 5. Type 2 diabetes mellitus. 6. Hyperlipidemia. 7. Hypertension. 8. Physical debility. PLAN: The plan is to continue the IV antibiotics as per Dr. Ferrera's recommendations. Patient's Perm-A-Cath has been removed and he had a temporary dialysis access placed in his right groin yesterday. Overall prognosis is guarded. The plan is to have him placed in an extended-care facility once he is ready for discharge. Further recommendations to follow depending on the progress of the patient. CHIKI
[2016-11-22 17:32] LABS: Glucose,Whole Blood 225 mg/dL (75-99)
[2016-11-22 20:37] LABS: Glucose,Whole Blood 215 mg/dL (75-99)
[2016-11-22] MEDS ORDERED: VANCOMYCIN 1,250 MG in SODIUM CHLORIDE 0.9% 250 ML IVPB ONE (21:00)
[2016-11-22] MEDS: FOLIC ACID-VIT B COMPLEX-VIT C 1 CAP PO SCH (21:28)
[2016-11-22] MEDS: ATORVASTATIN 10 MG TAB PO SCH (21:28)
[2016-11-23] MEDS: PANTOPRAZOLE 40 MG TABLET PO SCH (06:13)
[2016-11-23] MEDS: MIDODRINE 5 MG TAB PO SCH ×3 (06:13→20:30)
[2016-11-23 07:30] LABS: Glucose,Whole Blood 143 mg/dL (75-99)
[2016-11-23] MEDS: MEROPENEM 1 GM in SODIUM CHLORIDE 0.9% 100 ML IVPB SCH (08:04)
[2016-11-23] MEDS: MEGESTROL 400 MG/10 ML CUP PO SCH (08:06)
[2016-11-23] MEDS: DORZOLAMIDE HCL 2% DROPS 10 ML BTL BOTH EYES SCH ×2 (08:06→17:38)
[2016-11-23] MEDS: TAMSULOSIN 0.4 MG CAP.ER.24H PO SCH (08:07)
[2016-11-23] MEDS: SODIUM BICARBONATE TAB 650 MG TAB PO SCH ×2 (08:07→20:30)
[2016-11-23] MEDS: DONEPEZIL 10 MG TAB PO SCH (08:07)
[2016-11-23] MEDS: DOCUSATE 100 MG CAP PO SCH ×2 (08:07→17:38)
[2016-11-23] MEDS: INSULIN LISPRO (humaLOG) 300 UNIT/3 ML VIAL SQ SCH ×4 (08:08→21:21)
[2016-11-23] MEDS: FUROSEMIDE 10 MG/ML 10 ML VIAL IV SCH ×2 (08:09→21:19)
--- NOTE | 2016-11-23 11:10 | P.PN ---
Subjective Principal diagnosis: Sepsis This is an 81-year-old male. He had a hospitalization in August 2016 for acute kidney injury and was started on hemodialysis Thursday, , Thursday. He was seen on that hospitalization by Dr. Mc from infectious disease for Pseudomonas tracheobronchitis or pneumonia. His most recent hospitalization from October 14 through October 18 which time he was treated for urinary tract infection with enterococcus for which patient was treated on ampicillin and was discharged on 7 days as well as Clarke catheter in place. Patient went to [facility] and was discharged from there on November 05. Patient states he was doing well and using a walker and gaining his strength back. He has been following with hemodialysis center and they had noted that he had a fever and blood cultures were obtained on 11/11 which Klebsiella oxytoca, sensitivity not available. Patient was sent into [facility] emergency center for evaluation and found to be tachycardic, hypotensive with leukocytosis initially of 31.4 area and platelet count 143 and he does have history of mild thrombocytopenia. Hemoglobin is 9.3. BUN 23 and creatinine 2.04. Albumin 3. Urinalysis was turbid, leukoesterase large, blood moderate, WBCs greater than 182. Bacteria moderate. 2 blood cultures have status received. Urine culture is in process. There are consult in place for Dr. Ibrahim for intensive care management and nephrology. Chest x-ray is showing no acute pulmonary disease. Patient is also known to have a decubitus ulcer to the coccyx stage II. Patient had Clarke catheter removed on November 05. His most recent urine culture on October 14 positive for Enterococcus faecalis (not VRE) and Monet. Patient also has significant history of chronic atrial fibrillation on amiodarone and eliquis as well as chronic systolic heart failure and nonischemic cardiomyopathy with AICD. Patient remains ill. Ongoing difficulty with the Klebsiella sepsis. His remaining hypotensive. The case is discussed with vascular surgery and nephrology. Catheter removed for dialysis. Cultures from the are positive. Cultures from negative and femoral dialysis catheter has been placed. The follow up cultures remain negative. Patient is sitting up in the chair feeling better. Objective - Vital Signs Vital signs: Vital Signs Temp 97.7 F 11/23/16 07:00 Pulse 84 11/23/16 07:00 Resp 18 11/23/16 07:00 BP 99/68 11/23/16 07:00 Pulse Ox 96 11/23/16 07:00 Intake & Output 11/22/16 11/23/16 11/23/16 18:59 06:59 18:59 Intake Total 500 590 120 Output Total 1 1 Balance 499 590 119 Weight 79 kg Intake: Intake, IV Titration 100 250 Amount Meropenem 1 gm In Sodium 100 Chloride 0.9% 100 ml @ 200 mls/hr IVPB Q24HR [facility] Rx#:[id number] Vancomycin 1,250 mg In 250 Sodium Chloride 0.9% 250 ml @ 125 mls/hr IVPB ONCE ONE Rx#:[id number] Oral 400 340 120 Output: Stool 1 1 Other: Voiding Method Bedside Commode Bedside Commode Bedside Commode Urinal Urinal Urinal # Voids 3 1 - Exam Gen: This is an 81-year-old male. On the medical floor. Seems comfortable. Is attempting some nutrition. Improve strength. HEENT: Head is atraumatic, normocephalic. Pupils equal, round. Sclerae is anicteric. Oral mucous membranes are slightly dry. NECK: Supple. No JVD. No lymphadenopathy. No thyromegaly. Prior right IJ PermCath site is without expressible purulence LUNGS: Clear to auscultation. No wheezes or rhonchi. No intercostal retractions. HEART: Irregular rate and rhythm. No murmur. Dialysis catheter to the right upper anterior chest wall without tenderness. ABDOMEN: Soft. Bowel sounds are present. No masses. No tenderness. EXTREMITIES: Bilateral pedal edema more so on the right. Dorsalis pedis is weak bilaterally. NEUROLOGICAL: Patient is awake, alert and oriented x3. Cranial nerves 2 through 12 are grossly intact. Significant edema of the penis and scrotum is better with the zinc cream. the current right femoral dialysis catheter site is without tenderness or difficulty - Labs CBC & Chem 7: 11/21/16 08:11 11/22/16 08:12 Labs: Abnormal Lab Results - Last 24 Hours (Table) 11/22/16 11/22/16 11/23/16 Range/Units 17:18 20:34 07:20 POC Glucose (mg/dL) 225 H 215 H 143 H (75-99) mg/dL Microbiology - Last 24 Hours (Table) 11/17/16 11:55 Blood Culture - Preliminary Blood No Growth after 120 hours 11/17/16 12:03 Blood Culture - Preliminary Blood No Growth after 120 hours 11/20/16 10:44 Blood Culture - Preliminary Blood No Growth after 48 hours Laboratory Results WBC 8.6 k/uL (3.8-10.6) 11/21/16 08:11 RBC 3.32 m/uL (4.30-5.90) L 11/21/16 08:11 Hgb 10.0 gm/dL (13.0-17.5) L 11/21/16 08:11 Hct 33.5 % (39.0-53.0) L 11/21/16 08:11 MCV 101.0 fL (80.0-100.0) H 11/21/16 08:11 MCH 30.1 pg (25.0-35.0) 11/21/16 08:11 MCHC 29.8 g/dL (31.0-37.0) L 11/21/16 08:11 RDW 16.9 % (11.5-15.5) H 11/21/16 08:11 Plt Count 129 k/uL (150-450) L 11/21/16 08:11 Neutrophils % 89 % 11/18/16 05:22 Neutrophils % (Manual) 91.0 % 11/13/16 17:16 Band Neutrophils % 5.0 % 11/13/16 17:16 Lymphocytes % 6 % 11/18/16 05:22 Lymphocytes % (Manual) 2.5 % 11/13/16 17:16 Monocytes % 4 % 11/18/16 05:22 Monocytes % (Manual) 1.5 % 11/13/16 17:16 Eosinophils % 0 % 11/18/16 05:22 Basophils % 0 % 11/18/16 05:22 Neutrophils # 14.1 k/uL (1.3-7.7) H 11/18/16 05:22 Neutrophils # (Manual) 30.1 k/uL (1.3-7.7) H 11/13/16 17:16 Lymphocytes # 1.0 k/uL (1.0-4.8) 11/18/16 05:22 Lymphocytes # (Manual) 0.8 k/uL (1.0-4.8) L 11/13/16 17:16 Monocytes # 0.6 k/uL (0-1.0) 11/18/16 05:22 Monocytes # (Manual) 0.5 k/uL (0-1.0) 11/13/16 17:16 Eosinophils # 0.1 k/uL (0-0.7) 11/18/16 05:22 Basophils # 0.0 k/uL (0-0.2) 11/18/16 05:22 Nucleated RBCs 0 /100 WBC (0-0) 11/13/16 17:16 Manual Slide Review Performed 11/13/16 17:16 Polychromasia Present 11/13/16 17:16 Hypochromasia Marked 11/21/16 08:11 Anisocytosis Slight 11/21/16 08:11 Anisocytosis (manual) Present 11/13/16 17:16 Macrocytosis Slight 11/21/16 08:11 PT 12.6 sec (9.0-12.0) H 11/13/16 17:16 INR 1.3 (<1.1) 11/13/16 17:16 APTT 22.1 sec (22.0-30.0) 11/13/16 17:16 Sodium 136 mmol/L (137-145) L 11/22/16 08:12 Potassium 4.1 mmol/L (3.5-5.1) 11/22/16 08:12 Chloride 103 mmol/L (98-107) 11/22/16 08:12 Carbon Dioxide 25 mmol/L (22-30) 11/22/16 08:12 Anion Gap 8 mmol/L 11/22/16 08:12 BUN 21 mg/dL (9-20) H 11/22/16 08:12 Creatinine 2.20 mg/dL (0.66-1.25) H 11/22/16 08:12 Est GFR (MDRD) Af Amer 35 (>60 ml/min/1.73 sqM) 11/22/16 08:12 Est GFR (MDRD) Non-Af 29 (>60 ml/min/1.73 sqM) 11/22/16 08:12 Glucose 105 mg/dL (74-99) H 11/22/16 08:12 POC Glucose (mg/dL) 143 mg/dL (75-99) H 11/23/16 07:20 POC Glu Freezer Operator ID [email or web address] [email or web address] 11/23/16 07:[address] Glu mg/dL 91 mg/dL 11/14/16 04:31 Hemoglobin A1c 4.8 % (4.2-6.1) 11/14/16 04:31 Plasma Lactic Acid Chase 1.9 mmol/L (0.7-2.0) 11/14/16 08:50 Calcium 8.3 mg/dL (8.4-10.2) L 11/22/16 08:12 Phosphorus 3.9 mg/dL (2.5-4.5) 11/20/16 07:45 Magnesium 2.4 mg/dL (1.6-2.3) H 11/20/16 07:45 Total Bilirubin 1.6 mg/dL (0.2-1.3) H 11/21/16 08:11 AST 45 U/L (17-59) 11/21/16 08:11 ALT 220 U/L (21-72) H 11/21/16 08:11 Alkaline Phosphatase 196 U/L (38-126) H 11/21/16 08:11 Total Creatine Kinase 22 U/L (55-170) L 11/13/16 17:16 CK-MB (CK-2) 1.6 ng/mL (0.0-2.4) 11/13/16 17:16 CK-MB (CK-2) Rel Index 7.3 11/13/16 17:16 Troponin I 0.028 ng/mL (0.000-0.034) 11/13/16 17:16 Total Protein 6.2 g/dL (6.3-8.2) L 11/21/16 08:11 Albumin 2.9 g/dL (3.5-5.0) L 11/21/16 08:11 Cortisol 61 ug/dL 11/16/16 14:45 Urine Color [place] 11/13/16 18:50 Urine Appearance Turbid (Clear) 11/13/16 18:50 Urine pH 5.5 (5.0-8.0) 11/13/16 18:50 Ur Specific [place] 1.017 (1.001-1.035) 11/13/16 18:50 Urine Protein 2+ (Negative) H 11/13/16 18:50 Urine Glucose (UA) Negative (Negative) 11/13/16 18:50 Urine Ketones Negative (Negative) 11/13/16 18:50 Urine Blood Moderate (Negative) H 11/13/16 18:50 Urine Nitrite Negative (Negative) 11/13/16 18:50 Urine Bilirubin 1+ (Negative) H 11/13/16 18:50 Urine Urobilinogen 4.0 mg/dL (<2.0) 11/13/16 18:50 Ur Leukocyte Esterase Large (Negative) H 11/13/16 18:50 Urine RBC 16 /hpf (0-5) H 11/13/16 18:50 Urine WBC >182 /hpf (0-5) H 11/13/16 18:50 Urine WBC Clumps Many /hpf (None) H 11/13/16 18:50 Urine Bacteria Moderate /hpf (None) H 11/13/16 18:50 Hyaline Casts 8 /lpf (0-2) H 11/13/16 18:50 Random Vancomycin 22.3 ug/mL 11/22/16 08:12 Microbiology 11/17/16 11:55 Blood Blood Culture - Preliminary No Growth after 120 hours 11/17/16 12:03 Blood Blood Culture - Preliminary No Growth after 120 hours 11/20/16 10:44 Blood Blood Culture - Preliminary No Growth after 48 hours 11/19/16 10:46 Urine,Catheterized Urine Culture - Final Monet albicans 11/17/16 16:30 Blood Blood Culture Gram Stain - Final 11/17/16 16:30 Blood Blood Culture - Final Stenotrophomonas maltophilia 11/18/16 23:00 Catheter Tip Catheter Tip Culture - Preliminary 11/17/16 16:30 Blood Blood Culture - Preliminary 11/13/16 17:16 Blood Blood Culture Gram Stain - Final 11/13/16 17:16 Blood Blood Culture - Final Klebsiella oxytoca 11/13/16 21:00 Blood Blood Culture Gram Stain - Final 11/13/16 21:00 Blood Blood Culture - Final Klebsiella oxytoca 11/13/16 23:09 Other - Other Gram Stain - Preliminary 11/13/16 23:09 Other - Other Wound Culture - Final Methicillin resist S. aureus 11/13/16 18:50 Urine,Catheterized Urine Culture - Final Pseudomonas aeruginosa 11/13/16 17:16 Blood Blood Culture - Final 11/13/16 21:00 Blood Blood Culture - Final Assessment and Plan (1) Fever Status: Acute (2) Sepsis Narrative/Plan: 81-year-old male has history of recent profound illness with resultant end-stage renal disease placed on hemodialysis. He now developed evidence of Klebsiella oxytoca bacteremia. It did persist over a day and now seems to be doing better at this time. However given antigram negative that was not present in his urine. The urine had pseudomonas aeruginosa. With this disconnect concern would be to the potential that there is a catheter-related infection and consequently vascular surgery removde the catheter will be dialysis free for a few days and then the catheter be replaced at that time if we have evidence of ongoing negative blood cultures. As noted the case was discussed with vascular surgery and nephrology. Blood cultures regretfully are still positive at this time. Follow-up cultures have been requested. Once negative cultures of been obtained dialysis catheter can be replaced. He is having significant genital edema in zinc can be applied to that area. Patient fortunately is feeling better at this time. Continue the Merrem for the ESBL and vancomycin for the isolated MRSA.. plan 2 weeks of antibiotic therapy, and would plan on starting from the new catheter on Thursday. At this time since the bacteremia is cleared and is doing better. He likely will have dialysis tomorrow and then the PermCath will be replaced on Thursday. Since the infection is related to his hemodialysis catheter. The dialysis center should provide the antibiotic therapy Or at least access to instill the antibioitics at dialysis. Fortunately patient is feeling considerably better today. He continues his plan to recover at home. Status: Acute
[2016-11-23 11:36] LABS: Glucose,Whole Blood 189 mg/dL (75-99)
--- NOTE | 2016-11-23 12:41 | PN ---
DATE OF SERVICE: 11/23/2016. INTERVAL HISTORY: Mr. Qureshi is an 81-year-old man who follows with Dr. Farah and Dr. Hernandez as an outpatient. Admitted to the hospital for significant weakness, fever and lethargy. His blood cultures have been positive for Klebsiella and his wound cultures were positive for MRSA and urine was positive for Pseudomonas aeruginosa. He is currently on Meropenem and Dr. Ferrera following the patient closely. Patient's Perm-A-Cath has been removed and he has a new dialysis access placed in the right groin yesterday. The patient remains afebrile and hemodynamically stable. REVIEW OF SYSTEMS: CONSTITUTIONAL: Denies having any fever, chills or rigors. RESPIRATORY: No cough. No difficulty in breathing. CARDIAC: No chest pain or palpitations. On examination, patient's vital signs temperature 97.7, heart rate 84, respiratory rate 18, blood pressure 99/68, saturating at 96% on room air. GENERAL EXAMINATION: Patient is thin, cachectic, sitting up in a chair beside his bed. Appears to be in no acute distress. HEAD: Atraumatic, nontraumatic. EYES: Pupils, round, and reactive to light. NECK: No JVD. No thyromegaly. RESPIRATORY: Bilateral breath sounds are positive, diminished slightly at the lower lung bases. CARDIAC: S1, S2 heard. ABDOMEN: Soft. Bowel sounds positive. EXTREMITIES: Positive for bilateral pitting edema up to the mid up to the calf region on both sides. No cyanosis. Patient's labs: sodium 136, potassium 4.1, chloride 103, bicarb 25, BUN 21, creatinine 2.20, these were the labs after the dialysis yesterday. ASSESSMENT AND PLAN: 1. Sepsis secondary to Klebsiella Oxytoca in blood, Pseudomonas aeruginosa in the urine cultures and Methicillin-resistant Staph aureus in the wound. The patient is currently on Meropenem as per Dr. Ferrera recommendations. 2. End stage renal disease on hemodialysis. Currently nephrology on board following the patient. 3. Atrial fibrillation. 4. History of congestive heart failure, systolic heart failure, not in any acute exacerbation. 5. Type 2 diabetes mellitus. 6. Hypertension. 7. Hyperlipidemia. 8. Medical debility. PLAN: The plan is to continue on antibiotics as per Dr. Adair's recommendations. The patient's Perm-A-Cath has been removed and he has a temporary dialysis access stent in the right groin placed couple of days back. Once the patient's blood cultures are negative, then permanent dialysis catheter should be planned. Overall prognosis is guarded. Further recommendations to follow depending on the progress of the patient.
[2016-11-23 17:13] LABS: Glucose,Whole Blood 175 mg/dL (75-99)
[2016-11-23] MEDS: FOLIC ACID-VIT B COMPLEX-VIT C 1 CAP PO SCH (20:30)
[2016-11-23] MEDS: ATORVASTATIN 10 MG TAB PO SCH (20:30)
[2016-11-23 20:52] LABS: Glucose,Whole Blood 172 mg/dL (75-99)
[2016-11-24] MEDS: PANTOPRAZOLE 40 MG TABLET PO SCH (06:19)
[2016-11-24] MEDS: MIDODRINE 5 MG TAB PO SCH ×3 (06:19→22:25)
[2016-11-24 07:22] LABS: Glucose,Whole Blood 120 mg/dL (75-99)
[2016-11-24] MEDS: DORZOLAMIDE HCL 2% DROPS 10 ML BTL BOTH EYES SCH ×2 (07:53→18:04)
[2016-11-24] MEDS: DOCUSATE 100 MG CAP PO SCH ×2 (07:53→18:05)
--- NOTE | 2016-11-24 07:53 | P.DS ---
Providers Date of admission: 11/13/16 18:51 Attending physician: Joes Farah Consults: 11/13/16 18:36 Consult Physician Stat Consulting Provider: Azam Ferrera Consult Reason/Comments: Sepsis Do you want consulting provider notified?: Yes Consult Physician Stat Consulting Provider: Delmy Mcdermott Consult Reason/Comments: Renal failure on dialysis Do you want consulting provider notified?: Yes 11/14/16 13:09 Consult Physician Routine Consulting Provider: Freddy Bryant Consult Reason/Comments: ICU management Do you want consulting provider notified?: Yes 11/15/16 15:26 Consult Physician Routine Consulting Provider: Surendra Mora Consult Reason/Comments: afib Do you want consulting provider notified?: Yes 11/17/16 10:59 Consult Physician Routine Consulting Provider: Dangelo Villegas Consult Reason/Comments: removal of dialysis catheter after dialysis today Do you want consulting provider notified?: Yes Primary care physician: Jose Farah - Discharge Diagnosis(es) (1) Sepsis Current Visit: Yes Status: Acute (2) AICD (automatic cardioverter/defibrillator) present Current Visit: No Status: Acute (3) Anemia Current Visit: No Status: Acute (4) Atrial fibrillation with rapid ventricular response Current Visit: No Status: Acute (5) Cardiomyopathy, nonischemic Current Visit: No Status: Acute (6) Chronic renal failure Current Visit: No Status: Acute (7) High risk for readmission Current Visit: Yes Status: Acute Hospital Course: This discharge summary an 81-year-old white male with known history of end- stage renal disease congestive heart failure/atrial fibrillation with element of sepsis. Patient was treated for 11 days with appropriate antibiotic treatment. He will have continued course. Question vascular access being a problem as source of sepsis. Infectious disease was consulted and course of antibiotic for about 2 weeks after discharge has been outlined. The patient is stable without fever. He will be discharged once cleared by consultants and that available to [facility]. Prognosis is guarded secondary to his element of cardiorenal syndrome but is stable for the last 3 days. Patient Condition at Discharge: Serious Plan - Discharge Summary New Discharge Prescriptions: Meropenem [Merrem] 1 gm IVPB Q8H PRN #6 vial PRN Reason: Per Protocol Vancomycin 1,000 mg IVPB Q24HR #6 bag Discharge Medication List Insulin Detemir [Levemir Flextouch] 6 units SQ DAILY@0700 09/03/14 [History] Lovastatin [Mevacor] 40 mg PO HS@2100 09/03/14 [History] Apixaban [Eliquis] 2.5 mg PO BID@0800,1700 01/18/16 [History] Isosorbide Dinitrate [Isordil] 10 mg PO BID@0800,1700 01/18/16 [History] Rivastigmine Tartrate [Rivastigmine] 1.5 mg PO BID@0800,1700 01/18/16 [History] Furosemide [Lasix] 40 mg PO DAILY@0600 08/15/16 [History] Acetaminophen Tab [Tylenol] 650 mg PO Q4H PRN 09/16/16 [History] Amiodarone [Cordarone] 200 mg PO BID@0800,1700 09/16/16 [History] Docusate [Colace] 100 mg PO BID@0800,1700 09/16/16 [History] Megestrol [Megace] 400 mg PO DAILY@0800 09/16/16 [History] Metoprolol Succinate (ER) [Toprol XL] 50 mg PO DAILY@1700 09/16/16 [History] Midodrine [ProAmatine] 5 mg PO TID@0600,1400,2100 09/16/16 [History] Pantoprazole [Protonix] 40 mg PO DAILY@0600 09/16/16 [History] B Complex & C No.20/Folic Acid [Nephrocaps Softgel] 1 mg PO HS 10/03/16 [History ] Bisacodyl [Dulcolax] 10 mg RECTAL DAILY PRN 10/03/16 [History] Dorzolamide 2% [Trusopt 2%] 1 drops BOTH EYES BID@0800,1700 10/03/16 [History] Insulin Aspart [NovoLOG Flexpen] See Protocol SQ TID 10/03/16 [History] Ipratropium-Albuterol Nebulize [Duoneb 0.5 mg-3 mg/3 ml Soln] 3 ml INHALATION RT -QID PRN #0 ampul.neb 10/09/16 [Rx] Tamsulosin [Flomax] 0.4 mg PO DAILY 11/13/16 [History] Meropenem [Merrem] 1 gm IVPB Q8H PRN #6 vial 11/20/16 [Rx] Vancomycin 1,000 mg IVPB Q24HR #6 bag 11/20/16 [Rx] Follow up Appointment(s)/Referral(s): [facility], [NON-STAFF] - 1 Week Jose Farah MD [Primary Care Provider] - 1-2 days Ambulatory/Diagnostic Orders: Basic Metabolic Panel [LAB.AMB] Location: Determined By Patient Complete Blood Count w/diff [LAB.AMB] Location: Determined By Patient Miscellaneous Lab Order [LAB.AMB] Location: Determined By Patient Discharge Disposition: TRANSFER TO SNF/ECF
[2016-11-24] MEDS: MEGESTROL 400 MG/10 ML CUP PO SCH (07:54)
[2016-11-24] MEDS: SODIUM BICARBONATE TAB 650 MG TAB PO SCH ×2 (07:54→22:25)
[2016-11-24] MEDS: MEROPENEM 1 GM in SODIUM CHLORIDE 0.9% 100 ML IVPB SCH (07:54)
[2016-11-24] MEDS: TAMSULOSIN 0.4 MG CAP.ER.24H PO SCH (07:54)
[2016-11-24] MEDS: FUROSEMIDE 10 MG/ML 10 ML VIAL IV SCH ×2 (07:55→22:25)
[2016-11-24] MEDS: INSULIN LISPRO (humaLOG) 300 UNIT/3 ML VIAL SQ SCH ×4 (08:03→22:26)
[2016-11-24 08:12] LABS: Basophils # (A) 0.1 k/uL (0-0.2); Basophils % (A) 1 %; CH 29.4; CHCM 29.7; Eosinophils # (A) 0.4 k/uL (0-0.7); Eosinophils % (A) 4 %; HCT 35.1 % (39.0-53.0); HDW 3.01; HGB 10.4 gm/dL (13.0-17.5); Hypochromasia Marked; Luc # (Auto) 0.16; Luc % (Auto) 2; Lymphocytes # (A) 1.4 k/uL (1.0-4.8); Lymphocytes % (A) 16 %; MCH 29.6 pg (25.0-35.0); MCHC 29.6 g/dL (31.0-37.0); MCV 99.8 fL (80.0-100.0); Macrocytosis Slight; Mean Platelet Volume 8.5; Monocytes # (A) 0.4 k/uL (0-1.0); Monocytes % (A) 5 %; Neutrophils # (A) 6.3 k/uL (1.3-7.7); Neutrophils % (A) 72 %; RBC 3.52 m/uL (4.30-5.90); WBC 8.7 k/uL (3.8-10.6); WBC (Perox) 9.25
[2016-11-24] MEDS: DONEPEZIL 10 MG TAB PO SCH (08:33)
[2016-11-24 08:34] LABS: Calcium 8.5 mg/dL (8.4-10.2); Potassium 4.5 mmol/L (3.5-5.1)
--- NOTE | 2016-11-24 10:06 | P.PN ---
Subjective Patient is seen in follow-up for dialysis-dependent acute kidney injury due to cardiorenal syndrome. Patient is currently being treated for gram-negative bacteremia with blood cultures positive for Klebsiella. His blood cultures from November 17 are positive for stenotrophomonas maltophilia, which appears to be a contamination according to infectious disease. Repeat blood cultures have been negative. His urine culture is positive for Pseudomonas and Monet albicans and his wound cultures positive for MRSA. P-cath was removed 11/18. Denies any chest pain or shortness of breath. No vomiting or diarrhea. Oral intake is fair. He is off all vasopressors. A femoral catheter was placed on November 21. Vital signs are stable. General: The patient appeared well nourished and normally developed. HEENT: Head exam is unremarkable. Neck is without jugular venous distension. LUNGS: Lungs are clear to auscultation and percussion. Breath sounds decreased. HEART: Rate and Rhythm are regular. First and second heart sounds normal. No murmurs, rubs or gallops. ABDOMEN: Abdominal exam reveals normal bowel sounds. Non-tender and non- distended. No evidence of peritonitis. EXTREMITITES: 1+ edema. Objective - Vital Signs Vital signs: Vital Signs Temp 97.5 F L 11/24/16 07:00 Pulse 92 11/24/16 08:00 Resp 18 11/24/16 08:00 BP 109/71 11/24/16 07:00 Pulse Ox 94 L 11/24/16 07:19 Intake & Output 11/23/16 11/24/16 11/24/16 18:59 06:59 18:59 Intake Total 710 565 Output Total 3 151 Balance 707 565 -151 Weight 73 kg 73 kg Intake: Intake, IV Titration 350 250 Amount Meropenem 1 gm In Sodium 100 Chloride 0.9% 100 ml @ 200 mls/hr IVPB Q24HR [facility] Rx#:[id number] Vancomycin 1,250 mg In 250 250 Sodium Chloride 0.9% 250 ml @ 125 mls/hr IVPB ONCE ONE Rx#:[id number] Oral 360 315 Output: Urine 150 Stool 3 1 Other: Voiding Method Bedside Commode Bedside Commode Bedside Commode Urinal Urinal Urinal # Voids 3 2 2 # Bowel Movements 1 - Labs CBC & Chem 7: 11/24/16 07:27 11/24/16 07:27 Labs: Abnormal Lab Results - Last 24 Hours (Table) 11/23/16 11/23/16 11/23/16 Range/Units 11:34 17:04 20:50 RBC (4.30-5.90) m/uL Hgb (13.0-17.5) gm/dL Hct (39.0-53.0) % MCHC (31.0-37.0) g/dL RDW (11.5-15.5) % Plt Count (150-450) k/uL BUN (9-20) mg/dL Creatinine (0.66-1.25) mg/dL Glucose (74-99) mg/dL POC Glucose (mg/dL) 189 H 175 H 172 H (75-99) mg/dL 11/24/16 11/24/16 11/24/16 Range/Units 07:10 07:27 07:27 RBC 3.52 L (4.30-5.90) m/uL Hgb 10.4 L (13.0-17.5) gm/dL Hct 35.1 L (39.0-53.0) % MCHC 29.6 L (31.0-37.0) g/dL RDW 16.0 H (11.5-15.5) % Plt Count 134 L (150-450) k/uL BUN 32 H (9-20) mg/dL Creatinine 2.85 H (0.66-1.25) mg/dL Glucose 122 H (74-99) mg/dL POC Glucose (mg/dL) 120 H (75-99) mg/dL Microbiology - Last 24 Hours (Table) 11/17/16 11:55 Blood Culture - Final Blood No Growth after 144 hours 11/17/16 12:03 Blood Culture - Final Blood No Growth after 144 hours 11/20/16 10:44 Blood Culture - Preliminary Blood No Growth after 72 hours Assessment and Plan Plan: Assessment: #1. Dialysis-dependent acute kidney injury secondary to cardiorenal syndrome. No evidence of renal recovery. #2. Klebsiella oxytoca bacteremia with permacath being the likely source of infection. Blood cultures from 11/17 positive for stenotrophomonas maltophilia. #3. Urinary tract infection with urine culture positive for Pseudomonas. Repeat Ucx from 11/19 positive for Monet albicans. #4. Sacral decubitus wound culture positive for MRSA. #5. Hypotension maintained on Midodrine. #6. Metabolic acidosis secondary to acute kidney injury. #7. Anemia. Hemoglobin stable. Plan: Maintain IV Lasix. Maintain Aranesp. Maintain oral sodium bicarbonate supplementation. Hemodialysis today with goal 2-3 L ultrafiltration. Antibiotics per infectious disease recommendations. Vascular surgery to put in a new permacath and femoral catheter to be removed prior to his discharge.
[2016-11-24 12:00] LABS: Glucose,Whole Blood 200 mg/dL (75-99)
[2016-11-24] MEDS ORDERED: HEPARIN SODIUM,PORCINE 5,000 UNIT/ML 1 ML VIAL ONE (16:00)
--- NOTE | 2016-11-24 16:53 | P.PN ---
Subjective Principal diagnosis: Acute sepsis secondary to Klebsiella oxytoca This is a very pleasant 81-year-old gentleman who follows with Dr. Hernandez in our office. He has a history of atrial fibrillation, congestive heart failure, diabetes mellitus, hyperlipidemia, hypertension and previous pneumonia and influenza B infections. He was here in October 2016 subsequent discharge to [facility] for inpatient rehabilitation and was home only a short period of time. He does have end-stage renal failure and receives hemodialysis 3 days a week. He was at the dialysis center when he had developed significant weakness and fever with lethargy. He was brought here for the same. Her previous blood culture had revealed Klebsiella. He is seen again today in follow-up in the intensive care unit. He is awake and alert in no acute distress. He did receive dialysis again this morning. He's been hemodynamically stable. He is on 2 L/m per nasal cannula maintaining good O2 saturations in the upper 90s. He has a 0.9 normal saline at 50 MLS per hour. Denies any shortness of breath, cough or congestion. No chest pain, lightheadedness or dizziness. The patient is seen again today 11/20/2016 in follow-up on the regular medical floor. He did test positive for MRSA in his wound, pseudomonas aeruginosa and his urine and Klebsiella oxytoca in his blood. His follow-up blood culture from 11/17/2016 is also showing gram-negative bacilli. He remains on vancomycin and meropenem. His current white count is 9.2. He's been afebrile. He is maintaining good O2 saturations in the 90s on room air. He has been hemodynamically stable. He remains quite weak but is currently sitting up in the chair at the bedside. He denies any worsening shortness of breath, cough or congestion. The patient was seen and evaluated again today 11/21/2016 in follow-up on the regular medical floor. He is awake and alert in no acute distress. He is sitting up in the chair at the bedside. He denies any worsening shortness of breath, cough or congestion. His follow-up blood cultures on 11/17/2016 are positive for gram-negative bacilli as well. Repeat culture on 11/20/2016 reveals no growth for 24 hours. The hemodialysis catheter tip culture is pending. Nephrology is on the case and was requesting a new catheter be inserted which is planned today with Dr. Garay. Patient was evaluated today on 11/24/2016, doing quite well, presently receiving hemodialysis via his right femoral catheter. Plans are being made to place a new catheter for dialysis, patient is doing well overall, relatively asymptomatic. All cultures have been reviewed, patient is being followed by vascular surgery for possible catheter placement today or tomorrow. Labs showed normal WBC count, hemoglobin is 10.4. BUN is 32 creatinine 2. Objective - Vital Signs Vital signs: Vital Signs Temp 97.6 F 11/24/16 11:00 Pulse 82 11/24/16 11:00 Resp 16 11/24/16 11:00 BP 100/63 11/24/16 11:00 Pulse Ox 95 11/24/16 11:00 Intake & Output 11/23/16 11/24/16 11/24/16 18:59 06:59 18:59 Intake Total 710 565 Output Total 3 151 Balance 707 565 -151 Weight 73 kg 73 kg Intake: Intake, IV Titration 350 250 Amount Meropenem 1 gm In Sodium 100 Chloride 0.9% 100 ml @ 200 mls/hr IVPB Q24HR [facility] Rx#:[id number] Vancomycin 1,250 mg In 250 250 Sodium Chloride 0.9% 250 ml @ 125 mls/hr IVPB ONCE ONE Rx#:[id number] Oral 360 315 Output: Urine 150 Stool 3 1 Other: Voiding Method Bedside Commode Bedside Commode Bedside Commode Urinal Urinal Urinal # Voids 3 2 2 # Bowel Movements 1 - Exam GENERAL EXAM: Frail, cachectic. Alert, comfortable in no apparent distress. HEAD: Normocephalic. EYES: Normal reaction of pupils, equal size. NOSE: Clear with pink turbinates. THROAT: No erythema or exudates. NECK: No masses, no JVD. CHEST: No chest wall deformity. LUNGS: Equal air entry with no crackles, wheeze, rhonchi or dullness. CVS: S1 and S2 normal with no audible murmurs, regular rhythm. ABDOMEN: No hepatosplenomegaly, normal bowel sounds, no guarding or rigidity. SPINE: No scoliosis or deformity SKIN: No rashes CENTRAL NERVOUS SYSTEM: No focal deficits, tone is normal in all 4 extremities. Extremities: There is trace peripheral edema. No clubbing, no cyanosis. Peripheral pulses are intact. - Labs CBC & Chem 7: 11/24/16 07:27 11/24/16 07:27 Labs: Abnormal Lab Results - Last 24 Hours (Table) 11/23/16 11/23/16 11/24/16 Range/Units 17:04 20:50 07:10 RBC (4.30-5.90) m/uL Hgb (13.0-17.5) gm/dL Hct (39.0-53.0) % MCHC (31.0-37.0) g/dL RDW (11.5-15.5) % Plt Count (150-450) k/uL BUN (9-20) mg/dL Creatinine (0.66-1.25) mg/dL Glucose (74-99) mg/dL POC Glucose (mg/dL) 175 H 172 H 120 H (75-99) mg/dL 11/24/16 11/24/16 11/24/16 Range/Units 07:27 07:27 11:58 RBC 3.52 L (4.30-5.90) m/uL Hgb 10.4 L (13.0-17.5) gm/dL Hct 35.1 L (39.0-53.0) % MCHC 29.6 L (31.0-37.0) g/dL RDW 16.0 H (11.5-15.5) % Plt Count 134 L (150-450) k/uL BUN 32 H (9-20) mg/dL Creatinine 2.85 H (0.66-1.25) mg/dL Glucose 122 H (74-99) mg/dL POC Glucose (mg/dL) 200 H (75-99) mg/dL Microbiology - Last 24 Hours (Table) 11/18/16 23:00 Catheter Tip Culture - Preliminary Catheter Tip Stenotrophomonas maltophilia 11/20/16 10:44 Blood Culture - Preliminary Blood No Growth after 96 hours 11/17/16 11:55 Blood Culture - Final Blood No Growth after 144 hours 11/17/16 12:03 Blood Culture - Final Blood No Growth after 144 hours Assessment and Plan Plan: #1 Sepsis secondary to Klebsiella oxytoca in his blood, pseudomonas aeruginosa in the urine culture, and MRSA in the wound culture. Currently on vancomycin and meropenem. #2 End-stage renal failure receiving hemodialysis. Current creatinine 3.26. #3 Atrial fibrillation. #4 History of congestive heart failure. #5 Diabetes mellitus. #6 Hyperlipidemia. #7 Hypertension. #8 Poor overall functional performance based on the above-mentioned comorbidities. Recent extended care facility resident. Recommendation: Continue present treatment plan, agree with plans for hemodialysis catheter and discharge planning as per infectious disease on the case. Will follow on when necessary basis. Time with Patient: Less than 30
[2016-11-24 17:04] LABS: Glucose,Whole Blood 103 mg/dL (75-99)
[2016-11-24 20:03] LABS: Glucose,Whole Blood 153 mg/dL (75-99)
[2016-11-24] MEDS: ATORVASTATIN 10 MG TAB PO SCH (22:25)
[2016-11-24] MEDS: FOLIC ACID-VIT B COMPLEX-VIT C 1 CAP PO SCH (22:25)
--- NOTE | 2016-11-24 22:57 | P.PN ---
Subjective Principal diagnosis: Sepsis This is an 81-year-old male. He had a hospitalization in August 2016 for acute kidney injury and was started on hemodialysis Thursday, , Thursday. He was seen on that hospitalization by Dr. Mc from infectious disease for Pseudomonas tracheobronchitis or pneumonia. His most recent hospitalization from October 14 through October 18 which time he was treated for urinary tract infection with enterococcus for which patient was treated on ampicillin and was discharged on 7 days as well as Clarke catheter in place. Patient went to [facility] and was discharged from there on November 05. Patient states he was doing well and using a walker and gaining his strength back. He has been following with hemodialysis center and they had noted that he had a fever and blood cultures were obtained on 11/11 which Klebsiella oxytoca, sensitivity not available. Patient was sent into [facility] emergency center for evaluation and found to be tachycardic, hypotensive with leukocytosis initially of 31.4 area and platelet count 143 and he does have history of mild thrombocytopenia. Hemoglobin is 9.3. BUN 23 and creatinine 2.04. Albumin 3. Urinalysis was turbid, leukoesterase large, blood moderate, WBCs greater than 182. Bacteria moderate. 2 blood cultures have status received. Urine culture is in process. There are consult in place for Dr. Ibrahim for intensive care management and nephrology. Chest x-ray is showing no acute pulmonary disease. Patient is also known to have a decubitus ulcer to the coccyx stage II. Patient had Clarke catheter removed on November 05. His most recent urine culture on October 14 positive for Enterococcus faecalis (not VRE) and Monet. Patient also has significant history of chronic atrial fibrillation on amiodarone and eliquis as well as chronic systolic heart failure and nonischemic cardiomyopathy with AICD. Patient remains ill. Ongoing difficulty with the Klebsiella sepsis. His remaining hypotensive. The case is discussed with vascular surgery and nephrology. Catheter removed for dialysis. Cultures from the are positive. Cultures from negative and femoral dialysis catheter has been placed. The follow up cultures remain negative. Patient is sitting up in the chair feeling better. Will have permcath for dialysis placed tomorrow. Objective - Vital Signs Vital signs: Vital Signs Temp 98.2 F 11/24/16 20:00 Pulse 81 11/24/16 20:00 Resp 16 11/24/16 20:00 BP 91/52 11/24/16 20:00 Pulse Ox 96 11/24/16 20:00 Intake & Output 11/24/16 11/24/16 11/25/16 06:59 18:59 06:59 Intake Total 565 400 200 Output Total 303 Balance 565 97 200 Weight 73 kg 73 kg Intake: Intake, IV Titration 250 Amount Vancomycin 1,250 mg In 250 Sodium Chloride 0.9% 250 ml @ 125 mls/hr IVPB ONCE ONE Rx#:[id number] Oral 315 400 200 Output: Urine 300 Stool 3 Other: Voiding Method Bedside Commode Bedside Commode Urinal Urinal # Voids 2 2 - Exam Gen: This is an 81-year-old male. On the medical floor. Seems comfortable. Is attempting some nutrition. Improve strength. HEENT: Head is atraumatic, normocephalic. Pupils equal, round. Sclerae is anicteric. Oral mucous membranes are slightly dry. NECK: Supple. No JVD. No lymphadenopathy. No thyromegaly. Prior right IJ PermCath site is without expressible purulence LUNGS: Clear to auscultation. No wheezes or rhonchi. No intercostal retractions. HEART: Irregular rate and rhythm. No murmur. Dialysis catheter to the right upper anterior chest wall without tenderness. ABDOMEN: Soft. Bowel sounds are present. No masses. No tenderness. EXTREMITIES: Bilateral pedal edema more so on the right. Dorsalis pedis is weak bilaterally. NEUROLOGICAL: Patient is awake, alert and oriented x3. Cranial nerves 2 through 12 are grossly intact. Significant edema of the penis and scrotum is better with the zinc cream. the current right femoral dialysis catheter site is without tenderness or difficulty - Labs CBC & Chem 7: 11/24/16 07:27 11/24/16 07:27 Labs: Abnormal Lab Results - Last 24 Hours (Table) 11/24/16 11/24/16 11/24/16 Range/Units 07:10 07:27 07:27 RBC 3.52 L (4.30-5.90) m/uL Hgb 10.4 L (13.0-17.5) gm/dL Hct 35.1 L (39.0-53.0) % MCHC 29.6 L (31.0-37.0) g/dL RDW 16.0 H (11.5-15.5) % Plt Count 134 L (150-450) k/uL BUN 32 H (9-20) mg/dL Creatinine 2.85 H (0.66-1.25) mg/dL Glucose 122 H (74-99) mg/dL POC Glucose (mg/dL) 120 H (75-99) mg/dL 11/24/16 11/24/16 11/24/16 Range/Units 11:58 17:02 19:56 RBC (4.30-5.90) m/uL Hgb (13.0-17.5) gm/dL Hct (39.0-53.0) % MCHC (31.0-37.0) g/dL RDW (11.5-15.5) % Plt Count (150-450) k/uL BUN (9-20) mg/dL Creatinine (0.66-1.25) mg/dL Glucose (74-99) mg/dL POC Glucose (mg/dL) 200 H 103 H 153 H (75-99) mg/dL Microbiology - Last 24 Hours (Table) 11/18/16 23:00 Catheter Tip Culture - Preliminary Catheter Tip Stenotrophomonas maltophilia 11/20/16 10:44 Blood Culture - Preliminary Blood No Growth after 96 hours Laboratory Results WBC 8.7 k/uL (3.8-10.6) 11/24/16 07:27 RBC 3.52 m/uL (4.30-5.90) L 11/24/16 07:27 Hgb 10.4 gm/dL (13.0-17.5) L 11/24/16 07:27 Hct 35.1 % (39.0-53.0) L 11/24/16 07:27 MCV 99.8 fL (80.0-100.0) 11/24/16 07:27 MCH 29.6 pg (25.0-35.0) 11/24/16 07:27 MCHC 29.6 g/dL (31.0-37.0) L 11/24/16 07:27 RDW 16.0 % (11.5-15.5) H 11/24/16 07:27 Plt Count 134 k/uL (150-450) L 11/24/16 07:27 Neutrophils % 72 % 11/24/16 07:27 Neutrophils % (Manual) 91.0 % 11/13/16 17:16 Band Neutrophils % 5.0 % 11/13/16 17:16 Lymphocytes % 16 % 11/24/16 07:27 Lymphocytes % (Manual) 2.5 % 11/13/16 17:16 Monocytes % 5 % 11/24/16 07:27 Monocytes % (Manual) 1.5 % 11/13/16 17:16 Eosinophils % 4 % 11/24/16 07:27 Basophils % 1 % 11/24/16 07:27 Neutrophils # 6.3 k/uL (1.3-7.7) 11/24/16 07:27 Neutrophils # (Manual) 30.1 k/uL (1.3-7.7) H 11/13/16 17:16 Lymphocytes # 1.4 k/uL (1.0-4.8) 11/24/16 07:27 Lymphocytes # (Manual) 0.8 k/uL (1.0-4.8) L 11/13/16 17:16 Monocytes # 0.4 k/uL (0-1.0) 11/24/16 07:27 Monocytes # (Manual) 0.5 k/uL (0-1.0) 11/13/16 17:16 Eosinophils # 0.4 k/uL (0-0.7) 11/24/16 07:27 Basophils # 0.1 k/uL (0-0.2) 11/24/16 07:27 Nucleated RBCs 0 /100 WBC (0-0) 11/13/16 17:16 Manual Slide Review Performed 11/13/16 17:16 Polychromasia Present 11/13/16 17:16 Hypochromasia Marked 11/24/16 07:27 Anisocytosis Slight 11/21/16 08:11 Anisocytosis (manual) Present 11/13/16 17:16 Macrocytosis Slight 11/24/16 07:27 PT 12.6 sec (9.0-12.0) H 11/13/16 17:16 INR 1.3 (<1.1) 11/13/16 17:16 APTT 22.1 sec (22.0-30.0) 11/13/16 17:16 Sodium 138 mmol/L (137-145) 11/24/16 07:27 Potassium 4.5 mmol/L (3.5-5.1) 11/24/16 07:27 Chloride 103 mmol/L (98-107) 11/24/16 07:27 Carbon Dioxide 22 mmol/L (22-30) 11/24/16 07:27 Anion Gap 13 mmol/L 11/24/16 07:27 BUN 32 mg/dL (9-20) H 11/24/16 07:27 Creatinine 2.85 mg/dL (0.66-1.25) H 11/24/16 07:27 Est GFR (MDRD) Af Amer 26 (>60 ml/min/1.73 sqM) 11/24/16 07:27 Est GFR (MDRD) Non-Af 21 (>60 ml/min/1.73 sqM) 11/24/16 07:27 Glucose 122 mg/dL (74-99) H 11/24/16 07:27 POC Glucose (mg/dL) 153 mg/dL (75-99) H 11/24/16 19:56 POC Glu [employer] Alessandra Morse 11/24/16 19:[address] Glu mg/dL 91 mg/dL 11/14/16 04:31 Hemoglobin A1c 4.8 % (4.2-6.1) 11/14/16 04:31 Plasma Lactic Acid Chase 1.9 mmol/L (0.7-2.0) 11/14/16 08:50 Calcium 8.5 mg/dL (8.4-10.2) 11/24/16 07:27 Phosphorus 3.9 mg/dL (2.5-4.5) 11/20/16 07:45 Magnesium 2.4 mg/dL (1.6-2.3) H 11/20/16 07:45 Total Bilirubin 1.6 mg/dL (0.2-1.3) H 11/21/16 08:11 AST 45 U/L (17-59) 11/21/16 08:11 ALT 220 U/L (21-72) H 11/21/16 08:11 Alkaline Phosphatase 196 U/L (38-126) H 11/21/16 08:11 Total Creatine Kinase 22 U/L (55-170) L 11/13/16 17:16 CK-MB (CK-2) 1.6 ng/mL (0.0-2.4) 11/13/16 17:16 CK-MB (CK-2) Rel Index 7.3 11/13/16 17:16 Troponin I 0.028 ng/mL (0.000-0.034) 11/13/16 17:16 Total Protein 6.2 g/dL (6.3-8.2) L 11/21/16 08:11 Albumin 2.9 g/dL (3.5-5.0) L 11/21/16 08:11 Cortisol 61 ug/dL 11/16/16 14:45 Urine Color Jack 11/13/16 18:50 Urine Appearance Turbid (Clear) 11/13/16 18:50 Urine pH 5.5 (5.0-8.0) 11/13/16 18:50 Ur Specific [place] 1.017 (1.001-1.035) 11/13/16 18:50 Urine Protein 2+ (Negative) H 11/13/16 18:50 Urine Glucose (UA) Negative (Negative) 11/13/16 18:50 Urine Ketones Negative (Negative) 11/13/16 18:50 Urine Blood Moderate (Negative) H 11/13/16 18:50 Urine Nitrite Negative (Negative) 11/13/16 18:50 Urine Bilirubin 1+ (Negative) H 11/13/16 18:50 Urine Urobilinogen 4.0 mg/dL (<2.0) 11/13/16 18:50 Ur Leukocyte Esterase Large (Negative) H 11/13/16 18:50 Urine RBC 16 /hpf (0-5) H 11/13/16 18:50 Urine WBC >182 /hpf (0-5) H 11/13/16 18:50 Urine WBC Clumps Many /hpf (None) H 11/13/16 18:50 Urine Bacteria Moderate /hpf (None) H 11/13/16 18:50 Hyaline Casts 8 /lpf (0-2) H 11/13/16 18:50 Random Vancomycin 30.6 ug/mL 11/24/16 07:27 Microbiology 11/18/16 23:00 Catheter Tip Catheter Tip Culture - Preliminary Stenotrophomonas maltophilia 11/20/16 10:44 Blood Blood Culture - Preliminary No Growth after 96 hours 11/17/16 11:55 Blood Blood Culture - Final No Growth after 144 hours 11/17/16 12:03 Blood Blood Culture - Final No Growth after 144 hours 11/19/16 10:46 Urine,Catheterized Urine Culture - Final Monet albicans 11/17/16 16:30 Blood Blood Culture Gram Stain - Final 11/17/16 16:30 Blood Blood Culture - Final Stenotrophomonas maltophilia 11/17/16 16:30 Blood Blood Culture - Preliminary 11/13/16 17:16 Blood Blood Culture Gram Stain - Final 11/13/16 17:16 Blood Blood Culture - Final Klebsiella oxytoca 11/13/16 21:00 Blood Blood Culture Gram Stain - Final 11/13/16 21:00 Blood Blood Culture - Final Klebsiella oxytoca 11/13/16 23:09 Other - Other Gram Stain - Preliminary 11/13/16 23:09 Other - Other Wound Culture - Final Methicillin resist S. aureus 11/13/16 18:50 Urine,Catheterized Urine Culture - Final Pseudomonas aeruginosa 11/13/16 17:16 Blood Blood Culture - Final 11/13/16 21:00 Blood Blood Culture - Final Assessment and Plan (1) Fever Status: Acute (2) Sepsis Narrative/Plan: 81-year-old male has history of recent profound illness with resultant end-stage renal disease placed on hemodialysis. He now developed evidence of Klebsiella oxytoca bacteremia. It did persist over a day and now seems to be doing better at this time. However given antigram negative that was not present in his urine. The urine had pseudomonas aeruginosa. With this disconnect concern would be to the potential that there is a catheter-related infection and consequently vascular surgery removde the catheter will be dialysis free for a few days and then the catheter be replaced at that time if we have evidence of ongoing negative blood cultures. As noted the case was discussed with vascular surgery and nephrology. He is having significant genital edema in zinc can be applied to that area. Patient fortunately is feeling better at this time. Continue the Merrem for the ESBL and vancomycin for the isolated MRSA.. plan 2 weeks of antibiotic therapy, and would plan on starting from the new catheter on Thursday. 1 blood culture has grown Stenotrophomonas maltophilia, as did the catheter tip. Fortunately with removal of the hemodialysis catheter this infection will be resolved. It is quite curious that this is not the pathogen that was originally isolated. Fortunately he has had a marked clinical response and seems to be doing very well with current antibiotic therapy with meropenem and vancomycin. There is noted plan 2 weeks after his new catheter is been placed At this time since the bacteremia is cleared and is doing better. He likely will have dialysis tomorrow and then the PermCath will be replaced on Thursday. Since the infection is related to his hemodialysis catheter. The dialysis center should provide the antibiotic therapy Or at least access to instill the antibioitics at dialysis. Fortunately patient is feeling considerably better today. He continues his plan to recover at home. Status: Acute
[2016-11-25] MEDS: PANTOPRAZOLE 40 MG TABLET PO SCH (06:25)
[2016-11-25] MEDS: MIDODRINE 5 MG TAB PO SCH ×3 (06:25→20:46)
[2016-11-25 07:19] LABS: Glucose,Whole Blood 139 mg/dL (75-99)
[2016-11-25] MEDS: MEROPENEM 1 GM in SODIUM CHLORIDE 0.9% 100 ML IVPB SCH (07:50)
[2016-11-25] MEDS: INSULIN LISPRO (humaLOG) 300 UNIT/3 ML VIAL SQ SCH ×4 (07:50→20:47)
[2016-11-25] MEDS: SODIUM BICARBONATE TAB 650 MG TAB PO SCH ×2 (07:50→20:46)
[2016-11-25] MEDS: MEGESTROL 400 MG/10 ML CUP PO SCH (07:50)
[2016-11-25] MEDS: DORZOLAMIDE HCL 2% DROPS 10 ML BTL BOTH EYES SCH ×2 (07:52→17:43)
[2016-11-25] MEDS: DONEPEZIL 10 MG TAB PO SCH (07:53)
[2016-11-25] MEDS: TAMSULOSIN 0.4 MG CAP.ER.24H PO SCH (07:54)
[2016-11-25] MEDS: DOCUSATE 100 MG CAP PO SCH ×2 (09:00→17:50)
[2016-11-25] MEDS: FUROSEMIDE 10 MG/ML 10 ML VIAL IV SCH ×2 (09:00→20:46)
[2016-11-25 09:09] VITALS: BMI 18.5
--- NOTE | 2016-11-25 10:53 | P.PN ---
Subjective Patient is seen in follow-up for dialysis-dependent acute kidney injury due to cardiorenal syndrome. Patient is currently being treated for gram-negative bacteremia with blood cultures positive for Klebsiella. His blood cultures from November 17 are positive for stenotrophomonas maltophilia, which appears to be a contamination according to infectious disease. Repeat blood cultures have been negative. His catheter tip culture is also positive for stenotrophomonas. His urine culture is positive for Pseudomonas and Monet albicans and his wound cultures positive for MRSA. P-cath was removed 11/18. Denies any chest pain or shortness of breath. No vomiting or diarrhea. Oral intake is fair. He is off all vasopressors. A femoral catheter was placed on November 21. Vital signs are stable. General: The patient appeared well nourished and normally developed. HEENT: Head exam is unremarkable. Neck is without jugular venous distension. LUNGS: Lungs are clear to auscultation and percussion. Breath sounds decreased. HEART: Rate and Rhythm are regular. First and second heart sounds normal. No murmurs, rubs or gallops. ABDOMEN: Abdominal exam reveals normal bowel sounds. Non-tender and non- distended. No evidence of peritonitis. EXTREMITITES: 1+ edema. Objective - Vital Signs Vital signs: Vital Signs Temp 98.2 F 11/25/16 07:00 Pulse 92 11/25/16 08:00 Resp 16 11/25/16 08:00 BP 97/55 11/25/16 07:00 Pulse Ox 98 11/25/16 07:00 Intake & Output 11/24/16 11/25/16 11/25/16 18:59 06:59 18:59 Intake Total 400 437 Output Total 303 1 Balance 97 437 -1 Weight 73 kg 49 kg 49 kg Intake: Oral 400 437 Output: Urine 300 Stool 3 1 Other: Voiding Method Bedside Commode Bedside Commode Bedside Commode Urinal Urinal Urinal # Voids 2 1 - Labs CBC & Chem 7: 11/24/16 07:27 11/24/16 07:27 Labs: Abnormal Lab Results - Last 24 Hours (Table) 11/24/16 11/24/16 11/24/16 Range/Units 11:58 17:02 19:56 POC Glucose (mg/dL) 200 H 103 H 153 H (75-99) mg/dL 11/25/16 Range/Units 07:12 POC Glucose (mg/dL) 139 H (75-99) mg/dL Microbiology - Last 24 Hours (Table) 11/17/16 16:30 Blood Culture - Final Blood 11/18/16 23:00 Catheter Tip Culture - Preliminary Catheter Tip Stenotrophomonas maltophilia 11/20/16 10:44 Blood Culture - Preliminary Blood No Growth after 96 hours Assessment and Plan Plan: Assessment: #1. Dialysis-dependent acute kidney injury secondary to cardiorenal syndrome. No evidence of renal recovery. #2. Klebsiella oxytoca bacteremia with permacath being the likely source of infection. Blood cultures from 11/17 positive for stenotrophomonas maltophilia. #3. Urinary tract infection with urine culture positive for Pseudomonas. Repeat Ucx from 11/19 positive for Monet albicans. #4. Sacral decubitus wound culture positive for MRSA. #5. Hypotension maintained on Midodrine. #6. Metabolic acidosis secondary to acute kidney injury. #7. Anemia. Hemoglobin stable. Plan: Maintain IV Lasix. Maintain Aranesp. Maintain oral sodium bicarbonate supplementation. Hemodialysis tomorrow with goal 2-3 L ultrafiltration. Antibiotics per infectious disease recommendations. Vascular surgery to put in a new permacath and femoral catheter to be removed prior to his discharge - scheduled to be done today.
[2016-11-25] MEDS: DARBEPOETIN ALFA 40 MCG/0.4 ML SYRINGE SQ SCH (11:05)
[2016-11-25 11:41] LABS: Glucose,Whole Blood 197 mg/dL (75-99)
[2016-11-25] MEDS ORDERED: LIDOCAINE 2% INJ 20 MG/ML SQ ONE (13:30)
[2016-11-25] MEDS ORDERED: fentaNYL (PF) 50 MCG/ML 2 ML AMP IV ONE (13:32)
[2016-11-25] MEDS ORDERED: SODIUM CHLORIDE 0.9% 500 ML IV ONE (13:35)
--- NOTE | 2016-11-25 14:50 | IR ---
EXAMINATION TYPE: IR cvc insert central tunneled DATE OF EXAM: 11/25/2016 2:09 PM COMPARISON: NONE HISTORY: Dialysis catheter. Fluoroscopy was provided to the referring clinician. See dictated report from surgery.
--- NOTE | 2016-11-25 14:54 | XR ---
EXAMINATION TYPE: XR chest 1V confirm line [facility] DATE OF EXAM: 11/25/2016 2:46 PM COMPARISON: Prior chest x-ray 14 Nov 2016 HISTORY: Status post central venous catheter placement TECHNIQUE: Single frontal view of the chest is obtained. FINDINGS: Right jugular central venous catheter is present, distal tip is within the right atrium. I ntracardiac defibrillator lead is stable, the heart is enlarged. Lung volumes are low. There is no ev ident pneumothorax or sizable effusion. Interstitium is mildly prominent. Surgical clips are present in the right upper quadrant. IMPRESSION: No evident complication status post central venous catheter placement. Correlate for vol ume overload.
[2016-11-25 17:03] LABS: Glucose,Whole Blood 131 mg/dL (75-99)
[2016-11-25] MEDS: HYDROcodone/APAP 5-325MG 1 EACH TAB PO PRN (17:43)
[2016-11-25 20:24] LABS: Glucose,Whole Blood 191 mg/dL (75-99)
[2016-11-25] MEDS: FOLIC ACID-VIT B COMPLEX-VIT C 1 CAP PO SCH (20:46)
[2016-11-25] MEDS: ATORVASTATIN 10 MG TAB PO SCH (20:46)
--- NOTE | 2016-11-25 22:40 | P.PN ---
Subjective Principal diagnosis: Sepsis This is an 81-year-old male. He had a hospitalization in August 2016 for acute kidney injury and was started on hemodialysis Thursday, , Thursday. He was seen on that hospitalization by Dr. Mc from infectious disease for Pseudomonas tracheobronchitis or pneumonia. His most recent hospitalization from October 14 through October 18 which time he was treated for urinary tract infection with enterococcus for which patient was treated on ampicillin and was discharged on 7 days as well as Clarke catheter in place. Patient went to [facility] and was discharged from there on November 05. Patient states he was doing well and using a walker and gaining his strength back. He has been following with hemodialysis center and they had noted that he had a fever and blood cultures were obtained on 11/11 which Klebsiella oxytoca, sensitivity not available. Patient was sent into [facility] emergency center for evaluation and found to be tachycardic, hypotensive with leukocytosis initially of 31.4 area and platelet count 143 and he does have history of mild thrombocytopenia. Hemoglobin is 9.3. BUN 23 and creatinine 2.04. Albumin 3. Urinalysis was turbid, leukoesterase large, blood moderate, WBCs greater than 182. Bacteria moderate. 2 blood cultures have status received. Urine culture is in process. There are consult in place for Dr. Ibrahim for intensive care management and nephrology. Chest x-ray is showing no acute pulmonary disease. Patient is also known to have a decubitus ulcer to the coccyx stage II. Patient had Clarke catheter removed on November 05. His most recent urine culture on October 14 positive for Enterococcus faecalis (not VRE) and Monet. Patient also has significant history of chronic atrial fibrillation on amiodarone and eliquis as well as chronic systolic heart failure and nonischemic cardiomyopathy with AICD. Patient remains ill. Ongoing difficulty with the Klebsiella sepsis. His remaining hypotensive. The case is discussed with vascular surgery and nephrology. Catheter removed for dialysis. Cultures from the are positive. Cultures from negative and femoral dialysis catheter has been placed. The follow up cultures remain negative. Patient is sitting up in the chair feeling better. The right lower extremity temporary hemodialysis catheter is now been removed. With plans for the PermCath to be placed this afternoon. Objective - Vital Signs Vital signs: Vital Signs Temp 97.5 F L 11/25/16 20:30 Pulse 73 11/25/16 11:00 Resp 17 11/25/16 20:30 BP 110/67 11/25/16 20:30 Pulse Ox 98 11/25/16 20:30 Intake & Output 11/25/16 11/25/16 11/26/16 06:59 18:59 06:59 Intake Total 437 600 Output Total 154 Balance 437 446 Weight 49 kg 49 kg Intake: IV 100 Intake, IV Titration 100 Amount Meropenem 1 gm In Sodium 100 Chloride 0.9% 100 ml @ 200 mls/hr IVPB Q24HR [facility] Rx#:[id number] Oral 437 400 Output: Urine 150 Stool 4 Other: Voiding Method Bedside Commode Bedside Commode Urinal Urinal # Voids 1 2 1 # Bowel Movements 1 - Exam Gen: This is an 81-year-old male. On the medical floor. Seems comfortable. Is attempting some nutrition. Improve strength. HEENT: Head is atraumatic, normocephalic. Pupils equal, round. Sclerae is anicteric. Oral mucous membranes are slightly dry. NECK: Supple. No JVD. No lymphadenopathy. No thyromegaly. Prior right IJ PermCath site is without expressible purulence LUNGS: Clear to auscultation. No wheezes or rhonchi. No intercostal retractions. HEART: Irregular rate and rhythm. No murmur. Dialysis catheter to the right upper anterior chest wall without tenderness. ABDOMEN: Soft. Bowel sounds are present. No masses. No tenderness. EXTREMITIES: Bilateral pedal edema more so on the right. Dorsalis pedis is weak bilaterally. NEUROLOGICAL: Patient is awake, alert and oriented x3. Cranial nerves 2 through 12 are grossly intact. Significant edema of the penis and scrotum is better with the zinc cream. the former right femoral dialysis catheter site is without tenderness or difficulty - Labs CBC & Chem 7: 11/24/16 07:27 11/24/16 07:27 Labs: Abnormal Lab Results - Last 24 Hours (Table) 11/25/16 11/25/16 11/25/16 Range/Units 07:12 11:29 16:57 POC Glucose (mg/dL) 139 H 197 H 131 H (75-99) mg/dL 11/25/16 Range/Units 20:22 POC Glucose (mg/dL) 191 H (75-99) mg/dL Microbiology - Last 24 Hours (Table) 11/20/16 10:44 Blood Culture - Preliminary Blood No Growth after 120 hours 11/17/16 16:30 Blood Culture - Final Blood Laboratory Results WBC 8.7 k/uL (3.8-10.6) 11/24/16 07:27 RBC 3.52 m/uL (4.30-5.90) L 11/24/16 07:27 Hgb 10.4 gm/dL (13.0-17.5) L 11/24/16 07:27 Hct 35.1 % (39.0-53.0) L 11/24/16 07:27 MCV 99.8 fL (80.0-100.0) 11/24/16 07: MCH 29.6 pg (25.0-35.0) 11/24/16 07:27 MCHC 29.6 g/dL (31.0-37.0) L 11/24/16 07:27 RDW 16.0 % (11.5-15.5) H 11/24/16 07:27 Plt Count 134 k/uL (150-450) L 11/24/16 07:27 Neutrophils % 72 % 11/24/16 07:27 Neutrophils % (Manual) 91.0 % 11/13/16 17:16 Band Neutrophils % 5.0 % 11/13/16 17:16 Lymphocytes % 16 % 11/24/16 07:27 Lymphocytes % (Manual) 2.5 % 11/13/16 17:16 Monocytes % 5 % 11/24/16 07:27 Monocytes % (Manual) 1.5 % 11/13/16 17:16 Eosinophils % 4 % 11/24/16 07:27 Basophils % 1 % 11/24/16 07:27 Neutrophils # 6.3 k/uL (1.3-7.7) 11/24/16 07:27 Neutrophils # (Manual) 30.1 k/uL (1.3-7.7) H 11/13/16 17:16 Lymphocytes # 1.4 k/uL (1.0-4.8) 11/24/16 07:27 Lymphocytes # (Manual) 0.8 k/uL (1.0-4.8) L 11/13/16 17:16 Monocytes # 0.4 k/uL (0-1.0) 11/24/16 07:27 Monocytes # (Manual) 0.5 k/uL (0-1.0) 11/13/16 17:16 Eosinophils # 0.4 k/uL (0-0.7) 11/24/16 07:27 Basophils # 0.1 k/uL (0-0.2) 11/24/16 07:27 Nucleated RBCs 0 /100 WBC (0-0) 11/13/16 17:16 Manual Slide Review Performed 11/13/16 17:16 Polychromasia Present 11/13/16 17:16 Hypochromasia Marked 11/24/16 07:27 Anisocytosis Slight 11/21/16 08:11 Anisocytosis (manual) Present 11/13/16 17:16 Macrocytosis Slight 11/24/16 07:27 PT 12.6 sec (9.0-12.0) H 11/13/16 17:16 INR 1.3 (<1.1) 11/13/16 17:16 APTT 22.1 sec (22.0-30.0) 11/13/16 17:16 Sodium 138 mmol/L (137-145) 11/24/16 07:27 Potassium 4.5 mmol/L (3.5-5.1) 11/24/16 07:27 Chloride 103 mmol/L (98-107) 11/24/16 07:27 Carbon Dioxide 22 mmol/L (22-30) 11/24/16 07:27 Anion Gap 13 mmol/L 11/24/16 07:27 BUN 32 mg/dL (9-20) H 11/24/16 07:27 Creatinine 2.85 mg/dL (0.66-1.25) H 11/24/16 07:27 Est GFR (MDRD) Af Amer 26 (>60 ml/min/1.73 sqM) 11/24/16 07:27 Est GFR (MDRD) Non-Af 21 (>60 ml/min/1.73 sqM) 11/24/16 07:27 Glucose 122 mg/dL (74-99) H 11/24/16 07:27 POC Glucose (mg/dL) 191 mg/dL (75-99) H 11/25/16 20:22 POC Glu Clinical Technician Alessandra Morse 11/25/16 20:[address] Glu mg/dL 91 mg/dL 11/14/16 04:31 Hemoglobin A1c 4.8 % (4.2-6.1) 11/14/16 04:31 Plasma Lactic Acid [place] 1.9 mmol/L (0.7-2.0) 11/14/16 08:50 Calcium 8.5 mg/dL (8.4-10.2) 11/24/16 07:27 Phosphorus 3.9 mg/dL (2.5-4.5) 11/20/16 07:45 Magnesium 2.4 mg/dL (1.6-2.3) H 11/20/16 07:45 Total Bilirubin 1.6 mg/dL (0.2-1.3) H 11/21/16 08:11 AST 45 U/L (17-59) 11/21/16 08:11 ALT 220 U/L (21-72) H 11/21/16 08:11 Alkaline Phosphatase 196 U/L (38-126) H 11/21/16 08:11 Total Creatine Kinase 22 U/L (55-170) L 11/13/16 17:16 CK-MB (CK-2) 1.6 ng/mL (0.0-2.4) 11/13/16 17:16 CK-MB (CK-2) Rel Index 7.3 11/13/16 17:16 Troponin I 0.028 ng/mL (0.000-0.034) 11/13/16 17:16 Total Protein 6.2 g/dL (6.3-8.2) L 11/21/16 08:11 Albumin 2.9 g/dL (3.5-5.0) L 11/21/16 08:11 Cortisol 61 ug/dL 11/16/16 14:45 Urine Color [place] 11/13/16 18:50 Urine Appearance Turbid (Clear) 11/13/16 18:50 Urine pH 5.5 (5.0-8.0) 11/13/16 18:50 Ur Specific [place] 1.017 (1.001-1.035) 11/13/16 18:50 Urine Protein 2+ (Negative) H 11/13/16 18:50 Urine Glucose (UA) Negative (Negative) 11/13/16 18:50 Urine Ketones Negative (Negative) 11/13/16 18:50 Urine Blood Moderate (Negative) H 11/13/16 18:50 Urine Nitrite Negative (Negative) 11/13/16 18:50 Urine Bilirubin 1+ (Negative) H 11/13/16 18:50 Urine Urobilinogen 4.0 mg/dL (<2.0) 11/13/16 18:50 Ur Leukocyte Esterase Large (Negative) H 11/13/16 18:50 Urine RBC 16 /hpf (0-5) H 11/13/16 18:50 Urine WBC >182 /hpf (0-5) H 11/13/16 18:50 Urine WBC Clumps Many /hpf (None) H 11/13/16 18:50 Urine Bacteria Moderate /hpf (None) H 11/13/16 18:50 Hyaline Casts 8 /lpf (0-2) H 11/13/16 18:50 Random Vancomycin 23.5 ug/mL 11/25/16 07:10 Microbiology 11/20/16 10:44 Blood Blood Culture - Preliminary No Growth after 120 hours 11/17/16 16:30 Blood Blood Culture - Final 11/18/16 23:00 Catheter Tip Catheter Tip Culture - Preliminary Stenotrophomonas maltophilia 11/17/16 11:55 Blood Blood Culture - Final No Growth after 144 hours 11/17/16 12:03 Blood Blood Culture - Final No Growth after 144 hours 11/19/16 10:46 Urine,Catheterized Urine Culture - Final Monet albicans 11/17/16 16:30 Blood Blood Culture Gram Stain - Final 11/17/16 16:30 Blood Blood Culture - Final Stenotrophomonas maltophilia 11/13/16 17:16 Blood Blood Culture Gram Stain - Final 11/13/16 17:16 Blood Blood Culture - Final Klebsiella oxytoca 11/13/16 21:00 Blood Blood Culture Gram Stain - Final 11/13/16 21:00 Blood Blood Culture - Final Klebsiella oxytoca 11/13/16 23:09 Other - Other Gram Stain - Preliminary 11/13/16 23:09 Other - Other Wound Culture - Final Methicillin resist S. aureus 11/13/16 18:50 Urine,Catheterized Urine Culture - Final Pseudomonas aeruginosa 11/13/16 17:16 Blood Blood Culture - Final 11/13/16 21:00 Blood Blood Culture - Final Assessment and Plan (1) Fever Status: Acute (2) Sepsis Narrative/Plan: 81-year-old male has history of recent profound illness with resultant end-stage renal disease placed on hemodialysis. He now developed evidence of Klebsiella oxytoca bacteremia. It did persist over a day and now seems to be doing better at this time. However given antigram negative that was not present in his urine. The urine had pseudomonas aeruginosa. With this disconnect concern would be to the potential that there is a catheter-related infection and consequently vascular surgery removde the catheter will be dialysis free for a few days and then the catheter be replaced at that time if we have evidence of ongoing negative blood cultures. As noted the case was discussed with vascular surgery and nephrology. He is having significant genital edema in zinc can be applied to that area. Patient fortunately is feeling better at this time. Continue the Merrem for the ESBL and vancomycin for the isolated MRSA.. plan 2 weeks of antibiotic therapy, and would plan on starting from the new catheter on Thursday. 1 blood culture has grown Stenotrophomonas maltophilia, as did the catheter tip. Fortunately with removal of the hemodialysis catheter this infection will be resolved. It is quite curious that this is not the pathogen that was originally isolated. Fortunately he has had a marked clinical response and seems to be doing very well with current antibiotic therapy with meropenem and vancomycin. There is noted plan 2 weeks after his new catheter is been placed At this time since the bacteremia is cleared and is doing better. Has dialysis yesterday, and catheter exchange today. Since the infection is related to his hemodialysis catheter. The dialysis center should provide the antibiotic therapy Or at least access to instill the antibioitics at dialysis. Fortunately patient is feeling considerably better today. He continues his plan to recover at home. Status: Acute
[2016-11-26] MEDS: PANTOPRAZOLE 40 MG TABLET PO SCH (06:08)
[2016-11-26] MEDS: MIDODRINE 5 MG TAB PO SCH (06:08)
[2016-11-26 07:31] LABS: Glucose,Whole Blood 148 mg/dL (75-99)
[2016-11-26 07:37] VITALS: RESP 18; TEMP 97.4
[2016-11-26] MEDS: INSULIN LISPRO (humaLOG) 300 UNIT/3 ML VIAL SQ SCH ×2 (09:11→13:01)
--- NOTE | 2016-11-26 09:41 | P.PN ---
Subjective Patient is seen in follow-up for dialysis-dependent acute kidney injury due to cardiorenal syndrome. Patient is currently being treated for gram-negative bacteremia with blood cultures positive for Klebsiella. His blood cultures from November 17 are positive for stenotrophomonas maltophilia, which appears to be a contamination according to infectious disease. Repeat blood cultures have been negative. His catheter tip culture is also positive for stenotrophomonas. His urine culture is positive for Pseudomonas and Monet albicans and his wound cultures positive for MRSA. P-cath was removed 11/18. Denies any chest pain or shortness of breath. No vomiting or diarrhea. Oral intake is fair. He is off all vasopressors. A femoral catheter was placed on November 21 and discontinued on November 25. He had a new permacatheter placed on November 25. He is currently undergoing hemodialysis. No active complaints. Vital signs are stable. General: The patient appeared well nourished and normally developed. HEENT: Head exam is unremarkable. Neck is without jugular venous distension. LUNGS: Lungs are clear to auscultation and percussion. Breath sounds decreased. HEART: Rate and Rhythm are regular. First and second heart sounds normal. No murmurs, rubs or gallops. ABDOMEN: Abdominal exam reveals normal bowel sounds. Non-tender and non- distended. No evidence of peritonitis. EXTREMITITES: 1+ edema. Objective - Vital Signs Vital signs: Vital Signs Temp 97.4 F L 11/26/16 07:00 Pulse 78 11/26/16 07:00 Resp 18 11/26/16 07:00 BP 97/61 11/26/16 07:00 Pulse Ox 96 11/26/16 07:00 Intake & Output 11/25/16 11/26/16 11/26/16 18:59 06:59 18:59 Intake Total 600 Output Total 154 Balance 446 Weight 49 kg 60 kg Intake: IV 100 Intake, IV Titration 100 Amount Meropenem 1 gm In Sodium 100 Chloride 0.9% 100 ml @ 200 mls/hr IVPB Q24HR [facility] Rx#:[id number] Oral 400 Output: Urine 150 Stool 4 Other: Voiding Method Bedside Commode Bedside Commode Urinal Urinal # Voids 2 1 # Bowel Movements 1 - Labs CBC & Chem 7: 11/24/16 07:27 11/24/16 07:27 Labs: Abnormal Lab Results - Last 24 Hours (Table) 11/25/16 11/25/16 11/25/16 Range/Units 11:29 16:57 20:22 POC Glucose (mg/dL) 197 H 131 H 191 H (75-99) mg/dL 11/26/16 Range/Units 07:29 POC Glucose (mg/dL) 148 H (75-99) mg/dL Microbiology - Last 24 Hours (Table) 11/20/16 10:44 Blood Culture - Preliminary Blood No Growth after 120 hours 11/17/16 16:30 Blood Culture - Final Blood Assessment and Plan Plan: Assessment: #1. Dialysis-dependent acute kidney injury secondary to cardiorenal syndrome. No evidence of renal recovery. #2. Klebsiella oxytoca bacteremia with permacath being the likely source of infection. Blood cultures from 11/17 positive for stenotrophomonas maltophilia. #3. Urinary tract infection with urine culture positive for Pseudomonas. Repeat Ucx from 11/19 positive for Monet albicans. #4. Sacral decubitus wound culture positive for MRSA. #5. Hypotension maintained on Midodrine. #6. Metabolic acidosis secondary to acute kidney injury. #7. Anemia. Hemoglobin stable. Plan: Maintain IV Lasix. Maintain Aranesp. Maintain oral sodium bicarbonate supplementation. Currently undergoing hemodialysis with goal 2-3 L ultrafiltration. Antibiotics per infectious disease recommendations - 2 weeks of meropenem and vancomycin post discharge. Stable to be discharged home from nephrology standpoint.
--- NOTE | 2016-11-26 11:14 | PCN ---
DATE OF PROCEDURE: PREOPERATIVE DIAGNOSIS: Acute on chronic failure. PROCEDURE: Ultrasound-guided right internal jugular vein 28 cm dialysis catheter placement. This patient was brought to the laborer ammunition assembly. The right side of the neck and chest was prepped and draped in prior usual sterile manner and 1% lidocaine for the neck and chest area. Micropuncture needle right internal jugular vein. Micropuncture guidewire passed and 4 [place] dilator advanced on top the guidewire. After that a regular guidewire was passed, which was parked in the inferior vena cava. A tunnel was created. Through the tunnel, we placed 28 cm dialysis catheter. A dilator and sheath were advanced on ( ) the guidewire. The patient has a pacemaker from the left side. The tip of the catheter was deployed ( ) superior vena cava and atrium, flushed with heparin saline the hep-locked. Catheter was secured with 3-0 nylon. Dressing applied. The patient tolerated the procedure well.
[2016-11-26 11:20] VITALS: BP 91/53; PULSE 65
[2016-11-26 11:20] LABS: Glucose,Whole Blood 140 mg/dL (75-99)
[2016-11-26] MEDS ORDERED: HEPARIN SODIUM,PORCINE 5,000 UNIT/ML 1 ML VIAL ONE (12:00)
[2016-11-26] MEDS: DONEPEZIL 10 MG TAB PO SCH (12:49)
[2016-11-26] MEDS: DOCUSATE 100 MG CAP PO SCH (12:50)
[2016-11-26] MEDS: DORZOLAMIDE HCL 2% DROPS 10 ML BTL BOTH EYES SCH (12:50)
[2016-11-26] MEDS: MEGESTROL 400 MG/10 ML CUP PO SCH (12:50)
[2016-11-26] MEDS: FUROSEMIDE 10 MG/ML 10 ML VIAL IV SCH (12:50)
[2016-11-26] MEDS: SODIUM BICARBONATE TAB 650 MG TAB PO SCH (12:52)
[2016-11-26] MEDS: TAMSULOSIN 0.4 MG CAP.ER.24H PO SCH (12:52)
[2016-11-26] MEDS: MEROPENEM 1 GM in SODIUM CHLORIDE 0.9% 100 ML IVPB SCH (12:52)
[2016-11-26 14:05] LABS: Blood Urea Nitrogen 30 mg/dL (9-20); Creatine Kinase 34 U/L (55-170)
[2016-11-26] MEDS ORDERED: VANCOMYCIN 1,250 MG in SODIUM CHLORIDE 0.9% 250 ML IVPB SCH (16:00)
== END 2016-11-26 14:55 | disposition home health service (06) | DRG 314 ==
LOC: EC 15:17 → 6ICU 18:51 → 5MS5E 11-19 18:39
PROVIDERS: ADMIT Family Medicine; ATTEND Family Medicine
PROC: 5A1D60Z (ICD-10-PCS; principal; 2016-11-15)
PROC: 05PY33Z Removal of Infusion Device from Upper Vein, Percutaneous Approach (ICD-10-PCS; 2016-11-19)
PROC: 04HK33Z Insertion of Infusion Device into Right Femoral Artery, Percutaneous Approach (ICD-10-PCS; 2016-11-21 13:12)
PROC: B549ZZA Ultrasonography of Inferior Vena Cava, Guidance (ICD-10-PCS; 2016-11-26)
PROC: 06H033Z Insertion of Infusion Device into Inferior Vena Cava, Percutaneous Approach (ICD-10-PCS; 2016-11-26)
DX: T80.211A Bloodstream infection due to central venous catheter, initial encounter (principal); A41.02 Sepsis due to Methicillin resistant Staphylococcus aureus; J96.01 Acute respiratory failure with hypoxia; R65.21 Severe sepsis with septic shock; A41.59 Other Gram-negative sepsis; N17.9 Acute kidney failure, unspecified; N18.6 End stage renal disease; L89.152 Pressure ulcer of sacral region, stage 2; I07.1 Rheumatic tricuspid insufficiency; I13.2 Hypertensive heart and chronic kidney disease with heart failure and with stage 5 chronic kidney disease, or end stage renal disease; E87.2 Acidosis; I50.22 Chronic systolic (congestive) heart failure; T83.511A Infection and inflammatory reaction due to indwelling urethral catheter, initial encounter; N39.0 Urinary tract infection, site not specified; I95.89 Other hypotension; E11.22 Type 2 diabetes mellitus with diabetic chronic kidney disease; I48.2 Chronic atrial fibrillation; D64.9 Anemia, unspecified; B96.1 Klebsiella pneumoniae [K. pneumoniae] as the cause of diseases classified elsewhere; B96.5 Pseudomonas (aeruginosa) (mallei) (pseudomallei) as the cause of diseases classified elsewhere; E78.5 Hyperlipidemia, unspecified; N40.0 Benign prostatic hyperplasia without lower urinary tract symptoms; Z66 Do not resuscitate; Z79.01 Long term (current) use of anticoagulants; Z79.4 Long term (current) use of insulin; Z87.01 Personal history of pneumonia (recurrent); Z95.810 Presence of automatic (implantable) cardiac defibrillator; Z99.2 Dependence on renal dialysis; Z79.899 Other long term (current) drug therapy; Z91.041 Radiographic dye allergy status; Z91.013 Allergy to seafood
CPT/HCPCS: 36415; 36556; 36558; 71010; 71020; 76937; 77001; 80048; 80053; 80202; 81001; 82533; 82550; 82553; 83036; 83605; 83735; 84100; 84132; 84484; 84520; 85025; 85027; 85610; 85730; 87040; 87070; 87077; 87086; 87186; 87205; 90935; 93005; 93306; 94760; 99214

== ENCOUNTER → 2016-12-05 | Outpatient (CLI) | payer MEDICARE, BC ==
--- NOTE | 2016-12-05 14:40 | XR ---
Lumbar spine HISTORY: Trauma and pain 3 views of the lumbar spine Comparison CT abdomen pelvis 04/18/2016 Lumbar vertebral bodies show preserved height. Bone mineralization is reduced. There is multilevel sp ondylosis. Mild anterior wedging at T11 and T12 is noted and is thought to be stable. There is multil evel spondylosis and loss of disc height and intervertebral levels. Surgical clips are present in the right upper quadrant. Vascular calcifications are noted. Sclerosis noted in the posterior elements o f the lumbosacral junction. IMPRESSION: No acute fracture or subluxation. Anterior wedging at T12 and L1 as noted on prior CT. De generative disc disease. Facet arthropathy.
--- NOTE | 2016-12-05 14:42 | XR ---
Right shoulder HISTORY: Trauma and pain 3 views of the right shoulder Comparison chest x-ray 11/25/2016 Right jugular central venous catheter is present, there is a pacemaker hypertrophic change present at the acromioclavicular joint. Bone mineralization is reduced. Right lung apex as visualized is normal . There is some blunting of the right costophrenic angle. IMPRESSION: No acute fracture or dislocation. Small right pleural effusion. Additional findings above .
== END | disposition home or self-care (01) ==
LOC: RADXRMAIN 13:49
PROVIDERS: ATTEND Family Medicine
DX: M51.36 Other intervertebral disc degeneration, lumbar region (principal); M46.96 Unspecified inflammatory spondylopathy, lumbar region; M25.511 Pain in right shoulder
CPT/HCPCS: 72100

== ENCOUNTER 2016-12-18 16:30 | Inpatient (IN) | payer MEDICARE, BC ==
--- NOTE | 2016-12-18 18:16 | ED ---
SOB HPI - General Chief Complaint: Shortness of Breath Stated Complaint: Difficulty Breathing Time Seen by Provider: 12/18/16 17:22 Source: patient, family, RN notes reviewed Mode of arrival: wheelchair Limitations: no limitations - History of Present Illness Initial Comments: This is a 81-year-old male with a history of chronic renal failure who had dialysis today but apparently was short of breath while on dialysis. He was sent here for evaluation. As he fevers chills or sweats. His normal blood pressures in the 80s and 90s systolic . He does have COPD he has no complaints of productive cough. He denies any chest pain. MD Complaint: shortness of breath - Related Data Home Medications Medication Instructions Recorded Confirmed Insulin Detemir [Levemir Flextouch] 12 units SQ DAILY@0700 09/03/14 12/18/16 Lovastatin [Mevacor] 40 mg PO HS@2100 09/03/14 12/18/16 Apixaban [Eliquis] 2.5 mg PO BID@0800,1700 01/18/16 12/18/16 Isosorbide Dinitrate [Isordil] 10 mg PO BID@0800,1700 01/18/16 12/18/16 Rivastigmine Tartrate 1.5 mg PO BID@0800,1700 01/18/16 12/18/16 [Rivastigmine] Furosemide [Lasix] 40 mg PO DAILY@0600 08/15/16 12/18/16 Amiodarone [Cordarone] 200 mg PO BID@0800,1700 09/16/16 12/18/16 Megestrol [Megace] 400 mg PO DAILY@0800 09/16/16 12/18/16 Metoprolol Succinate (ER) [Toprol 50 mg PO DAILY@1700 09/16/16 12/18/16 XL] Midodrine [ProAmatine] 5 mg PO TID@0600,1400,2100 09/16/16 12/18/16 Pantoprazole [Protonix] 40 mg PO DAILY@0600 09/16/16 12/18/16 B Complex & C No.20/Folic Acid 1 mg PO W/SUPPER 10/03/16 12/18/16 [Nephrocaps Softgel] Dorzolamide 2% [Trusopt 2%] 1 drops BOTH EYES BID@0800,1700 10/03/16 12/18/16 Insulin Aspart [NovoLOG Flexpen] See Protocol SQ TID 10/03/16 12/18/16 Tamsulosin [Flomax] 0.4 mg PO DAILY 11/13/16 12/18/16 Previous Rx's Medication Instructions Recorded Ipratropium-Albuterol Nebulize 3 ml INHALATION RT-QID PRN #0 10/09/16 [Duoneb 0.5 mg-3 mg/3 ml Soln] ampul.neb Allergies Allergy/AdvReac Type Severity Reaction Status Date / Time Iodinated Contrast Media - Allergy Rash/Hives Verified 12/18/16 17:43 Oral and [Iodinated Contrast Media - IV Dye] warfarin sodium Allergy Unknown Verified 12/18/16 17:43 [From Coumadin] Review of Systems ROS Statement: Those systems with pertinent positive or pertinent negative responses have been documented in the HPI. ROS Other: All systems not noted in ROS Statement are negative. Past Medical History Past Medical History: Atrial Fibrillation, Cancer, Heart Failure, Diabetes Mellitus, Hyperlipidemia, Hypertension, Pneumonia, Renal Disease, Skin Disorder Additional Past Medical History / Comment(s): 08/15/16 pneumonia/ influenza B. He was also started on dialysis at that time per his spouse.10/14/16 UTI- WENT TO [facility] FOR REHAB JUST WENT HOME 11-05-16 Other Hx: Hemodialysis Tue// Sat, , cardiomyopathy, coccyx wounds currently-dsng, IDDM type II, spouse denies pt ever having HTN, bronchitis, bronchospasms, skin cancer with removal.pancreatitis History of Any Multi-Drug Resistant Organisms: ESBL, MRSA Date of last positivie culture/infection: 11/13/16, 11/13/16 ESBL MDRO Source:: COCCYX, ESBL BLOOD Past Surgical History: AICD, Cholecystectomy, Hernia Repair Additional Past Surgical History / Comment(s): defibrillator, cataracts removed , skin CA removed from face, colonoscopy, L inguinal hernia repair. Past Anesthesia/Blood Transfusion Reactions: No Reported Reaction Type of Cardiac Device: AICD Device Placement Date:: 07-28-11 Past Psychological History: No Psychological Hx Reported Smoking Status: Never smoker Past Alcohol Use History: None Reported Past Drug Use History: None Reported - Past Family History Mother History Unknown: Yes Additional Family Medical History / Comment(s): Pt does not know parents history -he was raised in foster care. Son(s) Family Medical History: AFIB Additional Family Medical History / Comment(s): son had heart transplant General Exam - General Exam Comments Initial Comments: This is a well-developed asthenic male Limitations: no limitations General appearance: alert, in no apparent distress Head exam: Present: atraumatic, normocephalic, normal inspection Eye exam: Present: normal appearance, PERRL, EOMI. Absent: scleral icterus, conjunctival injection, periorbital swelling ENT exam: Present: normal exam, mucous membranes moist Neck exam: Present: normal inspection. Absent: tenderness, meningismus, lymphadenopathy Respiratory exam: Present: rales, decreased breath sounds, other (Dialysis catheter in the right upper chest wall). Absent: respiratory distress, wheezes , rhonchi, stridor Cardiovascular Exam: Present: regular rate, normal rhythm, normal heart sounds. Absent: systolic murmur, diastolic murmur, rubs, gallop, clicks GI/Abdominal exam: Present: soft, normal bowel sounds. Absent: distended, tenderness, guarding, rebound, rigid Extremities exam: Present: normal inspection, full ROM, normal capillary refill , pedal edema. Absent: tenderness, joint swelling, calf tenderness Back exam: Present: normal inspection Neurological exam: Present: alert, oriented X3, CN II-XII intact Psychiatric exam: Present: normal affect, normal mood Skin exam: Present: warm, dry, intact, normal color. Absent: rash Course Vital Signs 12/18/16 12/18/16 12/18/16 17:08 17:57 18:29 Temperature 98.3 F Pulse Rate 100 103 H Respiratory 24 24 18 Rate Blood Pressure 96/51 110/69 O2 Sat by Pulse 96 100 Oximetry 12/18/16 19:02 Temperature 98.6 F Pulse Rate 102 H Respiratory 18 Rate Blood Pressure 93/66 O2 Sat by Pulse 98 Oximetry - Reevaluation(s) Reevaluation #1: 12/18/16 19:44 Patient did improve somewhat with the nebulizer treatment. Medical Decision Making - Medical Decision Making I did discuss the findings with the patient family as well as Dr. Farah the patient be admitted to the hospital with evaluation by Dr. Hernandez and nephrology - Lab Data Result diagrams: 12/18/16 17:30 06/15/17 17:30 Lab Results 12/18/16 12/18/16 12/18/16 Range/Units 17:30 17:30 17:30 WBC 7.8 (3.8-10.6) k/uL RBC 4.55 (4.30-5.90) m/uL Hgb 13.0 (13.0-17.5) gm/dL Hct 41.1 (39.0-53.0) % MCV 90.3 D (80.0-100.0) fL MCH 28.6 (25.0-35.0) pg MCHC 31.7 (31.0-37.0) g/dL RDW 15.3 (11.5-15.5) % Plt Count 168 (150-450) k/uL Neutrophils % 74 % Lymphocytes % 14 % Monocytes % 8 % Eosinophils % 1 % Basophils % 0 % Neutrophils # 5.7 (1.3-7.7) k/uL Lymphocytes # 1.1 (1.0-4.8) k/uL Monocytes # 0.7 (0-1.0) k/uL Eosinophils # 0.1 (0-0.7) k/uL Basophils # 0.0 (0-0.2) k/uL Hypochromasia Slight PT (9.0-12.0) sec INR (<1.1) APTT (22.0-30.0) sec Sodium 135 L (137-145) mmol/L Potassium 3.7 (3.5-5.1) mmol/L Chloride 95 L (98-107) mmol/L Carbon Dioxide 27 (22-30) mmol/L Anion Gap 13 mmol/L BUN 19 (9-20) mg/dL Creatinine 1.80 H (0.66-1.25) mg/dL Est GFR (MDRD) Af Amer 44 (>60 ml/min/1.73 sqM) Est GFR (MDRD) Non-Af 36 (>60 ml/min/1.73 sqM) Glucose 152 H (74-99) mg/dL Calcium 9.1 (8.4-10.2) mg/dL Magnesium 2.0 (1.6-2.3) mg/dL Total Bilirubin 1.6 H (0.2-1.3) mg/dL AST 39 (17-59) U/L ALT 32 (21-72) U/L Alkaline Phosphatase 147 H (38-126) U/L Total Creatine Kinase 34 L (55-170) U/L CK-MB (CK-2) 4.1 H* (0.0-2.4) ng/mL CK-MB (CK-2) Rel Index 12.1 Troponin I 0.065 H* (0.000-0.034) ng/mL NT-Pro-B Natriuret Pep pg/mL Total Protein 7.1 (6.3-8.2) g/dL Albumin 3.8 (3.5-5.0) g/dL 12/18/16 12/18/16 Range/Units 17:30 17:30 WBC (3.8-10.6) k/uL RBC (4.30-5.90) m/uL Hgb (13.0-17.5) gm/dL Hct (39.0-53.0) % MCV (80.0-100.0) fL MCH (25.0-35.0) pg MCHC (31.0-37.0) g/dL RDW (11.5-15.5) % Plt Count (150-450) k/uL Neutrophils % % Lymphocytes % % Monocytes % % Eosinophils % % Basophils % % Neutrophils # (1.3-7.7) k/uL Lymphocytes # (1.0-4.8) k/uL Monocytes # (0-1.0) k/uL Eosinophils # (0-0.7) k/uL Basophils # (0-0.2) k/uL Hypochromasia PT 13.9 H (9.0-12.0) sec INR 1.4 (<1.1) APTT 24.9 (22.0-30.0) sec Sodium (137-145) mmol/L Potassium (3.5-5.1) mmol/L Chloride (98-107) mmol/L Carbon Dioxide (22-30) mmol/L Anion Gap mmol/L BUN (9-20) mg/dL Creatinine (0.66-1.25) mg/dL Est GFR (MDRD) Af Amer (>60 ml/min/1.73 sqM) Est GFR (MDRD) Non-Af (>60 ml/min/1.73 sqM) Glucose (74-99) mg/dL Calcium (8.4-10.2) mg/dL Magnesium (1.6-2.3) mg/dL Total Bilirubin (0.2-1.3) mg/dL AST (17-59) U/L ALT (21-72) U/L Alkaline Phosphatase (38-126) U/L Total Creatine Kinase (55-170) U/L CK-MB (CK-2) (0.0-2.4) ng/mL CK-MB (CK-2) Rel Index Troponin I (0.000-0.034) ng/mL NT-Pro-B Natriuret Pep 82190 pg/mL Total Protein (6.3-8.2) g/dL Albumin (3.5-5.0) g/dL - EKG Data -: EKG Interpreted by Me (Atrial fibrillation rate of 103 temperature is 120 daily since QTC of 420/5) - Radiology Data Radiology results: report reviewed (Review the x-ray shows evidence of volume overload pulmonary venous hypertension and interstitial edema.), image reviewed Critical Care Time Critical Care Time: Yes Critical Care Time: 33 minutes of critical care time which includes initial evaluation with history physical labs x-rays reevaluation patient several occasions. Review of old charting discuss with the patient family discuss with the admitting physician. Orders and documentation of the above Disposition Clinical Impression: CHF exacerbation, Acute exacerbation of chronic obstructive airways disease, Acute respiratory distress, Chronic renal failure syndrome Disposition: ADMITTED IP TO THIS HOSP Condition: Serious Referrals: Jose Farah MD [Primary Care Provider] - 1-2 days
[2016-12-18 18:25] LABS: Basophils % (A) 0 %; CH 28.8; CHCM 31.9; Eosinophils # (A) 0.1 k/uL (0-0.7); Eosinophils % (A) 1 %; HCT 41.1 % (39.0-53.0); HDW 3.31; Hypochromasia Slight; Luc # (Auto) 0.17; Luc % (Auto) 2; Lymphocytes # (A) 1.1 k/uL (1.0-4.8); Lymphocytes % (A) 14 %; MCH 28.6 pg (25.0-35.0); MCHC 31.7 g/dL (31.0-37.0); Mean Platelet Volume 8.2; Monocytes # (A) 0.7 k/uL (0-1.0); Monocytes % (A) 8 %; Neutrophils # (A) 5.7 k/uL (1.3-7.7); Neutrophils % (A) 74 %; RBC 4.55 m/uL (4.30-5.90); RDW 15.3 % (11.5-15.5); WBC 7.8 k/uL (3.8-10.6); WBC (Perox) 7.42
[2016-12-18 18:29] LABS: MCV 90.3 fL (80.0-100.0)
[2016-12-18 18:31] LABS: Calcium 9.1 mg/dL (8.4-10.2); Potassium 3.7 mmol/L (3.5-5.1); Total Bilirubin 1.6 mg/dL (0.2-1.3); Total Protein 7.1 g/dL (6.3-8.2)
--- NOTE | 2016-12-18 18:50 | XR ---
EXAMINATION TYPE: XR chest 2V DATE OF EXAM: 12/18/2016 COMPARISON: Prior chest x-ray 11/25/2016 HISTORY: Difficulty breathing, hypertension TECHNIQUE: Frontal and lateral views of the chest are obtained. FINDINGS: Right jugular central venous catheter is present, the heart remains enlarged. Central vasc ularity and interstitium are increased. No pneumothorax. The cardiac defibrillator stable. There are overlying cardiac leads. No sizable effusion. IMPRESSION: Correlate for volume overload, pulmonary venous hypertension and interstitial edema.
[2016-12-18 18:52] LABS: Creatine Kinase MB 4.1 ng/mL (0.0-2.4); Troponin I 0.065 ng/mL (0.000-0.034)
[2016-12-18 19:26] LABS: INR 1.4 (<1.1); Partial Thromboplastin Time 24.9 sec (22.0-30.0); Prothrombin Time 13.9 sec (9.0-12.0)
[2016-12-18] MEDS ORDERED: IPRATROPIUM-ALBUTEROL 3 ML NEB INHALATION STA (19:52)
[2016-12-18] MEDS ORDERED: APIXABAN 2.5 MG TABLET PO ONE (21:39)
[2016-12-18 21:43] LABS: Glucose,Whole Blood 112 mg/dL (75-99)
[2016-12-18] MEDS: INSULIN LISPRO (humaLOG) 300 UNIT/3 ML VIAL SQ SCH (21:43)
[2016-12-18] MEDS: MIDODRINE 5 MG TAB PO SCH (21:50)
[2016-12-18] MEDS: ATORVASTATIN 10 MG TAB PO SCH (21:50)
[2016-12-18] MEDS: SODIUM CHLORIDE 0.9% 1,000 ML IV SCH (22:24)
[2016-12-18 22:47] LABS: Hemoglobin A1C 5.6 % (4.2-6.1)
[2016-12-18] MEDS ORDERED: IPRATROPIUM-ALBUTEROL 3 ML NEB INHALATION PRN (23:04)
[2016-12-19] MEDS ORDERED: IPRATROPIUM-ALBUTEROL 3 ML NEB INHALATION SCH
[2016-12-19] MEDS: FUROSEMIDE 40 MG TAB PO SCH (06:01)
[2016-12-19] MEDS: PANTOPRAZOLE 40 MG TABLET PO SCH (06:01)
[2016-12-19] MEDS: MIDODRINE 5 MG TAB PO SCH ×3 (06:01→19:45)
[2016-12-19 06:12] LABS: Glucose,Whole Blood 184 mg/dL (75-99)
[2016-12-19] MEDS: INSULIN DETEMIR 100 UNIT/ML 10 ML VIAL SQ SCH (06:37)
[2016-12-19] MEDS: INSULIN LISPRO (humaLOG) 300 UNIT/3 ML VIAL SQ SCH ×4 (06:37→21:34)
--- NOTE | 2016-12-19 08:34 | P.HPIM ---
History of Present Illness H&P Date: 12/19/16 Chief Complaint: Dyspnea on exertion after dialyzing This is a history and physical an another admission on an 81-year-old white male with underlying history of end-stage renal disease with cardiorenal syndrome. He has an underlying history of cardiomyopathy and was admitted secondary to having significant shortness of breath after dialysis the patient had elevated natruretic peptide. Chest x-ray did show volume overload. He is now admitted for appropriate dialysis and heart failure evaluation. He's had multiple admissions for this in the last 6 months and an underlying history of pneumonia with influenza in the winter season. Please see other records. Review of Systems Constitutional: Reports fatigue Eyes: denies blurred vision, denies pain Ears, nose, mouth and throat: Denies headache, Denies sore throat Cardiovascular: Reports as per HPI, Reports shortness of breath Respiratory: Reports dyspnea, Denies cough Gastrointestinal: Denies abdominal pain, Denies diarrhea, Denies nausea, Denies vomiting Musculoskeletal: Denies myalgias Integumentary: Denies sores Neurological: Denies numbness, Denies weakness Psychiatric: Reports as per HPI, Reports depression Endocrine: Denies fatigue, Denies weight change Past Medical History Past Medical History: Atrial Fibrillation, Cancer, Heart Failure, Diabetes Mellitus, Hyperlipidemia, Hypertension, Pneumonia, Prostate Disorder, Renal Disease, Skin Disorder Additional Past Medical History / Comment(s): 08/15/16 pneumonia/ influenza B. He was also started on dialysis at that time per his spouse.10/14/16 UTI- WENT TO [facility] FOR REHAB JUST WENT HOME 11-05-16 Other Hx: Hemodialysis e// Sat, , cardiomyopathy, coccyx wounds currently-dsng, IDDM type II, spouse denies pt ever having HTN, bronchitis, bronchospasms, skin cancer with removal.pancreatitis History of Any Multi-Drug Resistant Organisms: ESBL, MRSA Date of last positivie culture/infection: 11/13/16, 11/13/16 ESBL MDRO Source:: COCCYX, ESBL BLOOD Past Surgical History: AICD, Cholecystectomy, Hernia Repair Additional Past Surgical History / Comment(s): defibrillator, cataracts removed , skin CA removed from face, colonoscopy, L inguinal hernia repair, prostate surgery, eye surgery Past Anesthesia/Blood Transfusion Reactions: No Reported Reaction Type of Cardiac Device: AICD Device Placement Date:: 07-28-11 Past Psychological History: No Psychological Hx Reported Additional Psychological History / Comment(s): Pt came home from [facility] on -lives withhis of 54 years(melanie).uses a walker when up,also has a w/c, walker w/seat,shower chair. recieving services from [facility] nurse, pt/ ot Smoking Status: Never smoker Past Alcohol Use History: None Reported Past Drug Use History: None Reported - Past Family History Mother History Unknown: Yes Additional Family Medical History / Comment(s): Pt does not know parents history -he was raised in foster care. Son(s) Family Medical History: AFIB Additional Family Medical History / Comment(s): son had heart transplant, second son has cardiomyopathy Medications and Allergies Home Medications Medication Instructions Recorded Confirmed Type Insulin Detemir [Levemir Flextouch] 12 units SQ DAILY@0700 09/03/14 12/18/16 History Lovastatin [Mevacor] 40 mg PO HS@2100 09/03/14 12/18/16 History Apixaban [Eliquis] 2.5 mg PO BID@0800,1700 01/18/16 12/18/16 History Isosorbide Dinitrate [Isordil] 10 mg PO BID@0800,1700 01/18/16 12/18/16 History Rivastigmine Tartrate 1.5 mg PO BID@0800,1700 01/18/16 12/18/16 History [Rivastigmine] Furosemide [Lasix] 40 mg PO DAILY@0600 08/15/16 12/18/16 History Amiodarone [Cordarone] 200 mg PO BID@0800,1700 09/16/16 12/18/16 History Megestrol [Megace] 400 mg PO DAILY@0800 09/16/16 12/18/16 History Metoprolol Succinate (ER) [Toprol 50 mg PO DAILY@1700 09/16/16 12/18/16 History XL] Midodrine [ProAmatine] 5 mg PO TID@0600,1400,2100 09/16/16 12/18/16 History Pantoprazole [Protonix] 40 mg PO DAILY@0600 09/16/16 12/18/16 History B Complex & C No.20/Folic Acid 1 mg PO W/SUPPER 10/03/16 12/18/16 History [Nephrocaps Softgel] Dorzolamide 2% [Trusopt 2%] 1 drops BOTH EYES BID@0800,1700 10/03/16 12/18/16 History Insulin Aspart [NovoLOG Flexpen] See Protocol SQ TID 10/03/16 12/18/16 History Tamsulosin [Flomax] 0.4 mg PO DAILY 11/13/16 12/18/16 History Allergies Allergy/AdvReac Type Severity Reaction Status Date / Time Iodinated Contrast Media - Allergy Rash/Hives Verified 12/18/16 21:09 Oral and [Iodinated Contrast Media - IV Dye] warfarin sodium Allergy Unknown Verified 12/18/16 21:09 [From Coumadin] Physical Exam Vitals: Vital Signs Temp Pulse Pulse Resp BP BP Pulse Ox 12/19/16 04:00 97.6 F 108 H 16 88/71 100 12/19/16 00:00 97.3 F L 106 H 18 98/69 99 12/18/16 20:13 97.7 F 75 18 100/55 100 12/18/16 19:02 98.6 F 102 H 18 93/66 98 12/18/16 18:29 103 H 18 110/69 100 12/18/16 17:57 24 12/18/16 17:08 98.3 F 100 24 96/51 96 Intake and Output 12/18/16 12/19/16 12/19/16 22:59 06:59 14:59 Intake Total 20 180 Balance 20 180 Intake: IV 20 Sodium Chloride 0.9% 1, 20 000 ml @ 20 mls/hr IV . Q24H [facility] Rx#:[id number] Oral 180 Other: Voiding Method Toilet # Voids 1 0 # Bowel Movements 1 Weight 49.8 kg 49.8 kg - Constitutional General appearance: thin - EENT Eyes: EOMI - Neck Neck: no lymphadenopathy - Respiratory Respiratory: bilateral: diminished - Cardiovascular Rhythm: irregularly irregular Heart sounds: normal: S1, S2 - Gastrointestinal General gastrointestinal: soft, no tenderness - Integumentary Edema is noted. 1+ - Neurologic Neurologic: CNII-XII intact - Musculoskeletal Musculoskeletal: generalized weakness - Psychiatric Psychiatric: A&O x's 3, intact judgment & insight Results CBC & Chem 7: 12/18/16 17:30 12/18/16 17:30 Labs: Abnormal Lab Results - Last 24 Hours (Table) 12/18/16 12/18/16 12/18/16 Range/Units 17:30 17:30 17:30 PT 13.9 H (9.0-12.0) sec Sodium 135 L (137-145) mmol/L Chloride 95 L (98-107) mmol/L Creatinine 1.80 H (0.66-1.25) mg/dL Glucose 152 H (74-99) mg/dL POC Glucose (mg/dL) (75-99) mg/dL Total Bilirubin 1.6 H (0.2-1.3) mg/dL Alkaline Phosphatase 147 H (38-126) U/L Total Creatine Kinase 34 L (55-170) U/L CK-MB (CK-2) 4.1 H* (0.0-2.4) ng/mL Troponin I 0.065 H* (0.000-0.034) ng/mL 12/18/16 12/19/16 Range/Units 21:41 06:08 PT (9.0-12.0) sec Sodium (137-145) mmol/L Chloride (98-107) mmol/L Creatinine (0.66-1.25) mg/dL Glucose (74-99) mg/dL POC Glucose (mg/dL) 112 H 184 H (75-99) mg/dL Total Bilirubin (0.2-1.3) mg/dL Alkaline Phosphatase (38-126) U/L Total Creatine Kinase (55-170) U/L CK-MB (CK-2) (0.0-2.4) ng/mL Troponin I (0.000-0.034) ng/mL Thrombosis Risk Factor Assmnt - Choose All That Apply Any of the Below Risk Factors Present?: Yes Each Factor Represents 1 point: Swollen legs (current) Other Risk Factors: Yes Each Risk Factor Represents 3 Points: Age 75 years or older Other congenital or acquired thrombophilia - If yes, enter type in comment: No Thrombosis Risk Factor Assessment Total Risk Factor Score: 4 Thrombosis Risk Factor Assessment Level: Moderate Risk Assessment and Plan (1) Acute respiratory distress Status: Acute (2) Atrial fibrillation with rapid ventricular response Status: Acute (3) Cardiomyopathy, nonischemic Status: Acute (4) Chronic CHF Status: Acute (5) Dyspnea Status: Acute (6) Elevated brain natriuretic peptide (BNP) level Status: Acute (7) High risk for readmission Status: Acute (8) Systolic CHF, acute on chronic Status: Acute (9) Weakness Status: Acute Plan: With his significant fluid overload, we will approach this from a renal perspective for dialysis which is scheduled for today. Consult nephrology obviously. He does see Dr. Hernandez and has an underlying history of heart failure. Consult pulmonology and cardiology if necessary. Check CBC and CMP in a.m. Dr. Obrien's group will be covering for the weekend. Prognosis is guarded secondary to his multiple comorbidities.
[2016-12-19] MEDS: TAMSULOSIN 0.4 MG CAP.ER.24H PO SCH (09:05)
[2016-12-19] MEDS: AMIODARONE 200 MG TAB PO SCH ×2 (09:05→17:30)
[2016-12-19] MEDS: DONEPEZIL 5 MG TAB PO SCH (09:05)
[2016-12-19] MEDS: MEGESTROL 400 MG/10 ML CUP PO SCH (09:06)
[2016-12-19] MEDS: ISOSORBIDE DINITRATE 10 MG TAB PO SCH ×3 (09:06→19:45)
[2016-12-19] MEDS: APIXABAN 2.5 MG TABLET PO SCH ×2 (09:06→17:29)
--- NOTE | 2016-12-19 09:47 | P.CRDCN ---
History of Present Illness Consult date: 12/19/16 Reason for Consult (text): CHF Chief complaint: shortness of breath History of present illness: This is a pleasant 81-year-old gentleman with a known history of end-stage renal disease on hemodialysis, COPD, cardiomyopathy with a known ejection fraction of less than 20%, AICD in place, atrial fibrillation, diabetes mellitus , hyperlipidemia, and hypotension. Presented to the hospital with complaints of progressively increasing shortness of breath. Patient has not missed any dialysis treatment and is compliant with his medications. He also complains of lower extremity edema that is chronic. His x-ray on admission showed volume overload, pulmonary venous hypertension and interstitial edema. EKG showed atrial fibrillation with PVCs and one triplet. Return value showed a BUN of 19 and creatinine 1.8 and a proBNP level of 98,900, troponin 0.065. Recent medications have been adjusted due to hypotension with systolic pressure of 80s to 90s. He is on Lasix 40 mg by mouth daily. On examination, patient says his breathing is about the same as admission. Complains of orthopnea and shortness of breath with talking. Denies complaints of dizziness, lightheadedness, palpitations or chest discomfort. Past Medical History Past Medical History: Atrial Fibrillation, Cancer, Heart Failure, Diabetes Mellitus, Hyperlipidemia, Hypertension, Pneumonia, Prostate Disorder, Renal Disease, Skin Disorder Additional Past Medical History / Comment(s): 08/15/16 pneumonia/ influenza B. He was also started on dialysis at that time per his spouse.10/14/16 UTI- WENT TO [facility] FOR REHAB JUST WENT HOME 11-05-16 Other Hx: Hemodialysis Tue// Sat, , cardiomyopathy, coccyx wounds currently-dsng, IDDM type II, spouse denies pt ever having HTN, bronchitis, bronchospasms, skin cancer with removal.pancreatitis History of Any Multi-Drug Resistant Organisms: ESBL, MRSA Date of last positivie culture/infection: 11/13/16, 11/13/16 ESBL MDRO Source:: COCCYX, ESBL BLOOD Past Surgical History: AICD, Cholecystectomy, Hernia Repair Additional Past Surgical History / Comment(s): defibrillator, cataracts removed , skin CA removed from face, colonoscopy, L inguinal hernia repair, prostate surgery, eye surgery Past Anesthesia/Blood Transfusion Reactions: No Reported Reaction Type of Cardiac Device: AICD Device Placement Date:: 07-28-11 Past Psychological History: No Psychological Hx Reported Additional Psychological History / Comment(s): Pt came home from [facility] on -lives withhis of 54 years(melanie).uses a walker when up,also has a w/c, walker w/seat,shower chair. recieving services from [facility] care nurse, pt/ ot Smoking Status: Never smoker Past Alcohol Use History: None Reported Past Drug Use History: None Reported - Past Family History Mother History Unknown: Yes Additional Family Medical History / Comment(s): Pt does not know parents history -he was raised in foster care. Son(s) Family Medical History: AFIB Additional Family Medical History / Comment(s): son had heart transplant, second son has cardiomyopathy Medications and Allergies Home Medications Medication Instructions Recorded Confirmed Type Insulin Detemir [Levemir Flextouch] 12 units SQ DAILY@0700 09/03/14 12/18/16 History Lovastatin [Mevacor] 40 mg PO HS@2100 09/03/14 12/18/16 History Apixaban [Eliquis] 2.5 mg PO BID@0800,1700 01/18/16 12/18/16 History Isosorbide Dinitrate [Isordil] 10 mg PO BID@0800,1700 01/18/16 12/18/16 History Rivastigmine Tartrate 1.5 mg PO BID@0800,1700 01/18/16 12/18/16 History [Rivastigmine] Furosemide [Lasix] 40 mg PO DAILY@0600 08/15/16 12/18/16 History Amiodarone [Cordarone] 200 mg PO BID@0800,1700 09/16/16 12/18/16 History Megestrol [Megace] 400 mg PO DAILY@0800 09/16/16 12/18/16 History Metoprolol Succinate (ER) [Toprol 50 mg PO DAILY@1700 09/16/16 12/18/16 History XL] Midodrine [ProAmatine] 5 mg PO TID@0600,1400,2100 09/16/16 12/18/16 History Pantoprazole [Protonix] 40 mg PO DAILY@0600 09/16/16 12/18/16 History B Complex & C No.20/Folic Acid 1 mg PO W/SUPPER 10/03/16 12/18/16 History [Nephrocaps Softgel] Dorzolamide 2% [Trusopt 2%] 1 drops BOTH EYES BID@0800,1700 10/03/16 12/18/16 History Insulin Aspart [NovoLOG Flexpen] See Protocol SQ TID 10/03/16 12/18/16 History Tamsulosin [Flomax] 0.4 mg PO DAILY 11/13/16 12/18/16 History Allergies Allergy/AdvReac Type Severity Reaction Status Date / Time Iodinated Contrast Media - Allergy Rash/Hives Verified 12/18/16 21:09 Oral and [Iodinated Contrast Media - IV Dye] warfarin sodium Allergy Unknown Verified 12/18/16 21:09 [From Coumadin] Physical Exam Vitals: Vital Signs Temp Pulse Pulse Resp BP BP Pulse Ox 12/19/16 04:00 97.6 F 108 H 16 88/71 100 12/19/16 00:00 97.3 F L 106 H 18 98/69 99 12/18/16 20:13 97.7 F 75 18 100/55 100 12/18/16 19:02 98.6 F 102 H 18 93/66 98 12/18/16 18:29 103 H 18 110/69 100 12/18/16 17:57 24 12/18/16 17:08 98.3 F 100 24 96/51 96 Intake and Output 12/18/16 12/19/16 12/19/16 22:59 06:59 14:59 Intake Total 20 180 Balance 20 180 Intake: IV 20 Sodium Chloride 0.9% 1, 20 000 ml @ 20 mls/hr IV . Q24H [facility] Rx#:[id number] Oral 180 Other: Voiding Method Toilet # Voids 1 0 # Bowel Movements 1 Weight 49.8 kg 49.8 kg PHYSICAL EXAMINATION: HEENT: Head is atraumatic, normocephalic. Pupils equal, round. Neck is supple. There is elevated jugular venous pressure. HEART EXAMINATION: Heart sounds irregularly irregular, S1 and S2 normal. CHEST EXAMINATION: Lungs reveal diminished air entry throughout. No chest wall tenderness is noted on palpation or with deep breathing. ABDOMEN: Soft, nontender. Bowel sounds are heard. No organomegaly noted. EXTREMITIES: 1+ peripheral pulses with evidence of 2+ peripheral edema and no calf tenderness noted. NEUROLOGIC patient is awake, drowsy and oriented x3. . Results 12/18/16 17:30 12/18/16 17:30 Cardiac Enzymes 12/18/16 12/18/16 Range/Units 17:30 17:30 AST 39 (17-59) U/L CK-MB (CK-2) 4.1 H* (0.0-2.4) ng/mL Troponin I 0.065 H* (0.000-0.034) ng/mL Coagulation 12/18/16 Range/Units 17:30 PT 13.9 H (9.0-12.0) sec APTT 24.9 (22.0-30.0) sec CBC 12/18/16 Range/Units 17:30 WBC 7.8 (3.8-10.6) k/uL RBC 4.55 (4.30-5.90) m/uL Hgb 13.0 (13.0-17.5) gm/dL Hct 41.1 (39.0-53.0) % Plt Count 168 (150-450) k/uL Comprehensive Metabolic Panel 12/18/16 Range/Units 17:30 Sodium 135 L (137-145) mmol/L Potassium 3.7 (3.5-5.1) mmol/L Chloride 95 L (98-107) mmol/L Carbon Dioxide 27 (22-30) mmol/L BUN 19 (9-20) mg/dL Creatinine 1.80 H (0.66-1.25) mg/dL Glucose 152 H (74-99) mg/dL Calcium 9.1 (8.4-10.2) mg/dL AST 39 (17-59) U/L ALT 32 (21-72) U/L Alkaline Phosphatase 147 H (38-126) U/L Total Protein 7.1 (6.3-8.2) g/dL Albumin 3.8 (3.5-5.0) g/dL Current Medications Generic Name Dose Route Start Last Admin Trade Name Freq PRN Reason Stop Dose Admin Albuterol/Ipratropium 3 ml 12/18/16 23:04 Duoneb 0.5 Mg-3 Mg/3 Ml Soln INHALATION RT-QID PRN Shortness Of Breath Or Wheezing Amiodarone HCl 200 mg 12/19/16 08:00 12/19/16 09:05 Cordarone PO 200 mg BID@0800,1700 [facility] Administration Apixaban 2.5 mg 12/19/16 08:00 12/19/16 09:06 Eliquis PO 2.5 mg BID@0800,1700 [facility] Administration Atorvastatin Calcium 10 mg 12/18/16 21:00 12/18/16 21:50 Lipitor PO 10 mg HS@2100 [facility] Administration Donepezil HCl 5 mg 12/19/16 09:00 12/19/16 09:05 Aricept PO 5 mg DAILY [facility] Administration Dorzolamide HCl 1 drops 12/19/16 08:00 Trusopt BOTH EYES BID@0800,1700 [facility] Furosemide 40 mg 12/19/16 06:00 12/19/16 06:01 Lasix PO 40 mg DAILY@0600 [facility] Administration Sodium Chloride 1,000 mls @ 20 mls/hr 12/18/16 20:00 12/18/16 22:24 Saline 0.9% IV Not Given .Q24H [facility] Insulin Detemir 12 unit 12/19/16 07:00 12/19/16 06:37 Levemir SQ 12 unit DAILY@0700 [facility] Administration Insulin Human Lispro 0 unit 12/18/16 21:00 12/19/16 06:37 Humalog SQ [address] [facility] Administration Protocol Isosorbide Dinitrate 10 mg 12/19/16 08:00 12/19/16 09:06 Isordil PO 10 mg BID@0800,1700 [facility] Administration Megestrol Acetate 400 mg 12/19/16 08:00 12/19/16 09:06 Megace PO 400 mg DAILY@0800 [facility] Administration Metoprolol Succinate 50 mg 12/19/16 17:00 Toprol Xl PO DAILY@1700 [facility] Midodrine 5 mg 12/18/16 21:00 12/19/16 06:01 Proamatine PO 5 mg TID@0600,1400,2100 [facility] Administration Multivit/Ca Carb/B Cmplx/FA/Prenat 1 each 12/19/16 17:30 Nephrocaps PO W/SUPPER [facility] Pantoprazole Sodium 40 mg 12/19/16 06:00 12/19/16 06:01 Protonix PO 40 mg DAILY@0600 [facility] Administration Tamsulosin HCl 0.4 mg 12/19/16 09:00 06/16/17 09:05 Flomax PO 0.4 mg DAILY [facility] Administration Intake and Output 12/18/16 12/19/16 12/19/16 22:59 06:59 14:59 Intake Total 20 180 Balance 20 180 Intake: IV 20 Sodium Chloride 0.9% 1, 20 000 ml @ 20 mls/hr IV . Q24H [facility] Rx#:[id number] Oral 180 Other: Voiding Method Toilet # Voids 1 0 # Bowel Movements 1 Weight 49.8 kg 49.8 kg 12/18/16 17:30 12/18/16 17:30 Assessment and Plan Plan: Assessment and plan #1 symptoms of progressive dyspnea and fluid overload #2 end-stage renal disease, on hemodialysis, will be dialyzed today #3 severe cardiomyopathy with an ejection fraction less than 20% #4 status post AICD #5 chronic atrial fibrillation #6 nonsustained ventricular tachycardia From cardiology's perspective, we'll give 1 dose of IV Lasix now. We'll follow the patient's renal function, daily weights and intake and output. We will continue to follow the patient provide further recommendations accordingly. PILER note has been reviewed, I agree with a documented findings and plan of care. Patient was seen and examined.
[2016-12-19] MEDS ORDERED: FUROSEMIDE 10 MG/ML 10 ML VIAL IV STA (10:40)
--- NOTE | 2016-12-19 10:42 | P.PN ---
Progress Note - Text This is an addendum to the dictated cardiology consultation. The patient has a history of severe cardiomyopathy, chronic atrial fibrillation and ICD implant as well as end-stage renal disease on hemodialysis who presented was progressive dyspnea. He has chronic peripheral edema. He was at dialysis yesterday and was more dyspneic and subsequently referred to the emergency room and admitted. He is followed by cardiology service in [place] according to him although he does not recall the name of his physician. He denies any chest pain , he denies any dizziness or palpitations. His blood pressure is on the low side but according to him that is his baseline. On examination he has crackles at both bases, 2+ edema and he is in atrial fibrillation with a systolic murmur. The patient presents symptoms of progressive dyspnea and fluid overload in the setting of severe cardiomyopathy and end-stage renal disease. He scheduled to undergo dialysis today, in the meantime will give him 1 dose of IV Lasix to see if we can improve his breathing. Depending on his progress further recommendations will be made. Thank you for this consult we will follow with you.
[2016-12-19] MEDS: DORZOLAMIDE HCL 2% DROPS 10 ML BTL BOTH EYES SCH ×2 (11:26→17:30)
[2016-12-19 11:38] LABS: Basophils % (A) 0 %; CH 28.4; CHCM 30.6; Eosinophils # (A) 0.1 k/uL (0-0.7); Eosinophils % (A) 1 %; HCT 39.9 % (39.0-53.0); HDW 3.18; HGB 12.4 gm/dL (13.0-17.5); Hypochromasia Moderate; Luc # (Auto) 0.16; Luc % (Auto) 2; Lymphocytes # (A) 1.1 k/uL (1.0-4.8); Lymphocytes % (A) 12 %; MCHC 31.2 g/dL (31.0-37.0); MCV 92.9 fL (80.0-100.0); Mean Platelet Volume 8.4; Monocytes # (A) 0.8 k/uL (0-1.0); Monocytes % (A) 9 %; Neutrophils # (A) 6.8 k/uL (1.3-7.7); Neutrophils % (A) 76 %; RBC 4.29 m/uL (4.30-5.90); RDW 15.2 % (11.5-15.5); WBC (Perox) 9.34
[2016-12-19 11:47] LABS: Glucose,Whole Blood 159 mg/dL (75-99)
--- NOTE | 2016-12-19 13:00 | CONS ---
DATE OF CONSULTATION: 12/19/2016 REASON FOR CONSULTATION: Renal failure. HISTORY OF PRESENT ILLNESS: Patient is an 81-year-old male with history of acute kidney injury initially now end-stage renal disease, maintained on hemodialysis on a Thursday, , Thursday schedule as outpatient. Patient also has severe cardiomyopathy with EF of 20%. He was admitted after dialysis yesterday as he was significantly short of breath. There was no fever yesterday. No chest pains. His urine output has declined and he does not have much urine output now. Patient had about 2 L of ultrafiltration yesterday with hemodialysis as outpatient. There is no abdominal pain. No diarrhea. No nausea or vomiting. PAST MEDICAL HISTORY: End-stage renal disease, maintained on hemodialysis on a Thursday, , Thursday schedule via IJ Perm-A-Cath, severe cardiomyopathy, ejection fraction of 20%, history of recent C. difficile colitis, history of bacteremia and urinary tract infection, A. fib, hyperlipidemia and diabetes, influenza B in August,. PAST SURGICAL HISTORY: Cholecystectomy, hernia repair, AICD, Perm-A-Cath placement, defibrillator placement, colonoscopy. SOCIAL HISTORY: Currently patient is at home. He had been at [facility] for some time. There is no history of smoking, drug abuse or alcohol abuse. Medications at home prior to admission included Protonix, Toprol, insulin, Nephrocaps, Eliquis, Mevacor, Isordil, Lasix, Cordarone, Megace. REVIEW OF SYSTEMS: As per HPI, other systems negative. On examination, the patient is comfortable. He is mildly short of breath, not on any acute distress. Blood pressure was 121/58 this morning, heart rate 94 per minute. He is afebrile. EXAMINATION OF THE HEART: S1 and S2. EXAMINATION OF THE LUNGS: Bilateral breath sounds are heard. Decreased breath sounds at the bases. ABDOMEN: Soft, nontender. Examination of lower extremities shows edema 2+ bilaterally lower extremities. COUNTER TENDER exam is grossly intact. Patient has been moving all 4 extremities. Labs reveal serum potassium 3.7, sodium 135, creatinine 1.8. Hemoglobin 12.4 g/dL. ASSESSMENT: 1. End-stage renal disease on hemodialysis on a Thursday, , Thursday schedule. I will dialyze the patient again today for volume overload. 2. Volume overload. We will try to increase UF with hemodialysis today. Patient will be dialyzed today and then again in a.m. 3. Severe cardiomyopathy, ejection fraction of 20%. 4. Atrial fibrillation, maintained on Eliquis. 5. History of bacteremia with Klebsiella, status post antibiotics. 6. History of sacral wounds with methicillin-resistant Staphylococcus aureus infection. 7. Generalized debility. PLAN: Hemodialysis today as well as in a.m. Encourage increased oral intake. Maintain patient on midodrine which he takes normally as outpatient.
--- NOTE | 2016-12-19 13:16 | P.CNPUL ---
History of Present Illness Consult date: 12/19/16 Requesting physician: Jose Farah Reason for consult: dyspnea, abnormal CXR/CT (Fluid volume overload, vascular congestion) Chief complaint: Shortness of breath History of present illness: This is a very pleasant 81-year-old gentleman who follows with Dr. Whitehead as his primary care physician. He has a history of severe cardiomyopathy with an ejection fraction less than 20%, he is status post AICD placement, chronic atrial fibrillation anticoagulated with Eliquis, chronic renal failure with end- stage renal disease receiving hemodialysis on Thursday. He also has a history of chronic obstructive pulmonary disease and is well-known to our practice. He had had previous pleural effusions with subsequent thoracentesis. He's had Pseudomonas pulmonary infections as well. He presented here yesterday with complaints of worsening shortness of breath. He was receiving hemodialysis at the time. He was sent here for further evaluation. His chest x-ray did reveal evidence of fluid volume overload with vascular congestion. He also had 1-2+ lower extremity peripheral edema. ProBNP 98,900, creatinine 1.80. No leukocytosis. No anemia. The plan is for repeat dialysis today. In the meantime he is being diuresed. He is seen today in consultation on the selective care unit. He is awake and alert in no acute distress. He is maintaining good O2 saturations up to 100% on 2 L/m per nasal cannula. He has been hemodynamically stable. He is afebrile. He's had one void not measured since admission. Review of Systems 14 point review of system was conducted. All negative other than as mentioned in the HPI. Past Medical History Past Medical History: Atrial Fibrillation, Cancer, Heart Failure, Diabetes Mellitus, Hyperlipidemia, Hypertension, Pneumonia, Prostate Disorder, Renal Disease, Skin Disorder Additional Past Medical History / Comment(s): 08/15/16 pneumonia/ influenza B. He was also started on dialysis at that time per his spouse.10/14/16 UTI- WENT TO [facility] FOR REHAB JUST WENT HOME 11-05-16 Other Hx: Hemodialysis Thu// Thu, , cardiomyopathy, coccyx wounds currently-dsng, IDDM type II, spouse denies pt ever having HTN, bronchitis, bronchospasms, skin cancer with removal.pancreatitis History of Any Multi-Drug Resistant Organisms: ESBL, MRSA Date of last positivie culture/infection: 11/13/16, 11/13/16 ESBL MDRO Source:: COCCYX, ESBL BLOOD Past Surgical History: AICD, Cholecystectomy, Hernia Repair Additional Past Surgical History / Comment(s): defibrillator, cataracts removed , skin CA removed from face, colonoscopy, L inguinal hernia repair, prostate surgery, eye surgery Past Anesthesia/Blood Transfusion Reactions: No Reported Reaction Type of Cardiac Device: AICD Device Placement Date:: 07-28-11 Past Psychological History: No Psychological Hx Reported Additional Psychological History / Comment(s): Pt came home from [facility] on -lives withhis of 54 years(melanie).uses a walker when up,also has a w/c, walker w/seat,shower chair. recieving services from [facility] care nurse, pt/ ot Smoking Status: Never smoker Past Alcohol Use History: None Reported Past Drug Use History: None Reported - Past Family History Mother History Unknown: Yes Additional Family Medical History / Comment(s): Pt does not know parents history -he was raised in foster care. Son(s) Family Medical History: AFIB Additional Family Medical History / Comment(s): son had heart transplant, second son has cardiomyopathy Medications and Allergies Home Medications Medication Instructions Recorded Confirmed Type Insulin Detemir [Levemir Flextouch] 12 units SQ DAILY@0700 09/03/14 12/18/16 History Lovastatin [Mevacor] 40 mg PO HS@2100 09/03/14 12/18/16 History Apixaban [Eliquis] 2.5 mg PO BID@0800,1700 01/18/16 12/18/16 History Isosorbide Dinitrate [Isordil] 10 mg PO BID@0800,1700 01/18/16 12/18/16 History Rivastigmine Tartrate 1.5 mg PO BID@0800,1700 01/18/16 12/18/16 History [Rivastigmine] Furosemide [Lasix] 40 mg PO DAILY@0600 08/15/16 12/18/16 History Amiodarone [Cordarone] 200 mg PO BID@0800,1700 09/16/16 12/18/16 History Megestrol [Megace] 400 mg PO DAILY@0800 09/16/16 12/18/16 History Metoprolol Succinate (ER) [Toprol 50 mg PO DAILY@1700 09/16/16 12/18/16 History XL] Midodrine [ProAmatine] 5 mg PO TID@0600,1400,2100 09/16/16 12/18/16 History Pantoprazole [Protonix] 40 mg PO DAILY@0600 09/16/16 12/18/16 History B Complex & C No.20/Folic Acid 1 mg PO W/SUPPER 10/03/16 12/18/16 History [Nephrocaps Softgel] Dorzolamide 2% [Trusopt 2%] 1 drops BOTH EYES BID@0800,1700 10/03/16 12/18/16 History Insulin Aspart [NovoLOG Flexpen] See Protocol SQ TID 10/03/16 12/18/16 History Tamsulosin [Flomax] 0.4 mg PO DAILY 11/13/16 12/18/16 History Allergies Allergy/AdvReac Type Severity Reaction Status Date / Time Iodinated Contrast Media - Allergy Rash/Hives Verified 12/18/16 21:09 Oral and [Iodinated Contrast Media - IV Dye] warfarin sodium Allergy Unknown Verified 12/18/16 21:09 [From Coumadin] Physical Exam Vitals: Vital Signs Temp Pulse Pulse Resp BP BP Pulse Ox 12/19/16 09:30 96.9 F L 94 16 121/58 100 12/19/16 04:00 97.6 F 108 H 16 88/71 100 12/19/16 00:00 97.3 F L 106 H 18 98/69 99 12/18/16 20:13 97.7 F 75 18 100/55 100 12/18/16 19:02 98.6 F 102 H 18 93/66 98 12/18/16 18:29 103 H 18 110/69 100 12/18/16 17:57 24 12/18/16 17:08 98.3 F 100 24 96/51 96 Intake and Output 12/18/16 12/19/16 12/19/16 22:59 06:59 14:59 Intake Total 20 180 Balance 20 180 Intake: IV 20 Sodium Chloride 0.9% 1, 20 000 ml @ 20 mls/hr IV . Q24H [facility] Rx#:[id number] Oral 180 Other: Voiding Method Toilet Toilet # Voids 1 0 # Bowel Movements 1 Weight 49.8 kg 49.8 kg GENERAL EXAM: Frail, cachectic. Alert, comfortable in no apparent distress. HEAD: Normocephalic. EYES: Normal reaction of pupils, equal size. NOSE: Clear with pink turbinates. THROAT: No erythema or exudates. NECK: No masses, no JVD. CHEST: No chest wall deformity. Right-sided hemodialysis catheter in place. Dressing dry and intact. LUNGS: Equal air entry with crackles in the bilateral posterior bases. CVS: S1 and S2 normal with audible murmur, irregular rhythm. ABDOMEN: No hepatosplenomegaly, normal bowel sounds, no guarding or rigidity. Extremities: There is 1-2+ lower extremity peripheral edema. No clubbing, no cyanosis. Peripheral pulses are intact. Results - Laboratory Findings CBC and BMP: 12/19/16 09:25 12/18/16 17:30 PT/INR, D-dimer PT 13.9 sec (9.0-12.0) H 12/18/16 17:30 INR 1.4 (<1.1) 12/18/16 17:30 Abnormal lab findings: Abnormal Labs 12/18/16 12/18/16 12/18/16 17:30 17:30 17:30 RBC Hgb Plt Count PT 13.9 H Sodium 135 L Chloride 95 L Creatinine 1.80 H Glucose 152 H POC Glucose (mg/dL) Total Bilirubin 1.6 H Alkaline Phosphatase 147 H Total Creatine Kinase 34 L CK-MB (CK-2) 4.1 H* Troponin I 0.065 H* 12/18/16 12/19/16 12/19/16 21:41 06:08 09:25 RBC 4.29 L Hgb 12.4 L Plt Count 139 L PT Sodium Chloride Creatinine Glucose POC Glucose (mg/dL) 112 H 184 H Total Bilirubin Alkaline Phosphatase Total Creatine Kinase CK-MB (CK-2) Troponin I 12/19/16 11:43 RBC Hgb Plt Count PT Sodium Chloride Creatinine Glucose POC Glucose (mg/dL) 159 H Total Bilirubin Alkaline Phosphatase Total Creatine Kinase CK-MB (CK-2) Troponin I - Diagnostic Findings Chest x-ray: image reviewed Assessment and Plan Plan: Impression: #1 Acute exacerbation of chronic systolic congestive heart failure. #2 End-stage renal failure receiving hemodialysis on Thursday with additional treatment scheduled for today. #3 Severe ischemic cardiomyopathy with estimated ejection fraction less than 20% , status post AICD placement. #4 Chronic atrial fibrillation, anticoagulated with apixaban. #5 Hyperlipidemia. #6 Diabetes mellitus. #7 Benign prostatic hypertrophy. #8 Previous admission for pseudomonas aeruginosa pneumonia, complicated by influenza. #9 Poor overall functional performance secondary to the above-mentioned multiple comorbidities. Plan: The patient was seen and evaluated by Dr. Lowe. His chest x-ray and labs were reviewed. We'll continue with his current medications including diuretics and bronchodilators. He is anticoagulated with apixaban. We'll continue to follow make further recommendations based on his clinical status. Time with Patient: Greater than 30
[2016-12-19 14:40] LABS: Calcium 9.4 mg/dL (8.4-10.2); Potassium 3.6 mmol/L (3.5-5.1)
[2016-12-19] MEDS: SODIUM CHLORIDE 0.9% 1,000 ML IV SCH (14:52)
[2016-12-19 16:39] LABS: Glucose,Whole Blood 103 mg/dL (75-99)
[2016-12-19] MEDS: METOPROLOL SUCCINATE (ER) 50 MG TAB.ER.24H PO SCH ×2 (17:29→19:45)
[2016-12-19] MEDS ORDERED: FOLIC ACID-VIT B COMPLEX-VIT C 1 CAP PO SCH (17:30)
[2016-12-19] MEDS: ATORVASTATIN 10 MG TAB PO SCH (19:45)
[2016-12-19 20:55] LABS: Glucose,Whole Blood 172 mg/dL (75-99)
[2016-12-20 06:03] LABS: Glucose,Whole Blood 122 mg/dL (75-99)
[2016-12-20] MEDS: INSULIN LISPRO (humaLOG) 300 UNIT/3 ML VIAL SQ SCH ×2 (06:07→14:50)
[2016-12-20] MEDS: MIDODRINE 5 MG TAB PO SCH ×2 (06:09→14:59)
[2016-12-20] MEDS: PANTOPRAZOLE 40 MG TABLET PO SCH (06:09)
[2016-12-20] MEDS: FUROSEMIDE 40 MG TAB PO SCH (06:09)
[2016-12-20 06:51] LABS: Calcium 9.2 mg/dL (8.4-10.2); Total Bilirubin 1.3 mg/dL (0.2-1.3); Total Protein 6.6 g/dL (6.3-8.2)
[2016-12-20] MEDS: INSULIN DETEMIR 100 UNIT/ML 10 ML VIAL SQ SCH (07:08)
[2016-12-20] MEDS: ISOSORBIDE DINITRATE 10 MG TAB PO SCH (08:15)
[2016-12-20] MEDS: TAMSULOSIN 0.4 MG CAP.ER.24H PO SCH (08:20)
[2016-12-20] MEDS: DORZOLAMIDE HCL 2% DROPS 10 ML BTL BOTH EYES SCH (08:20)
[2016-12-20] MEDS: APIXABAN 2.5 MG TABLET PO SCH (08:20)
[2016-12-20] MEDS: AMIODARONE 200 MG TAB PO SCH (08:20)
[2016-12-20] MEDS: DONEPEZIL 5 MG TAB PO SCH (08:20)
[2016-12-20] MEDS: MEGESTROL 400 MG/10 ML CUP PO SCH (08:20)
--- NOTE | 2016-12-20 09:57 | PN ---
Patient is seen for followup for end-stage renal disease. He was admitted to the hospital with shortness of breath which seems to have improved. Patient was dialyzed yesterday and he will be dialyzed again today. He wants to go home today. On examination, blood pressure 86/53, heart rate 104 per minute. He is afebrile. HEART: S1 and S2. LUNGS: Bilateral breath sounds are heard. ABDOMEN: Soft, nontender. Lower extremities show edema 2+ bilaterally. FINAL RAIL CUTTER: Grossly intact. Patient is moving all 4 extremities. Labs show potassium 4.0, sodium 136. ASSESSMENT: 1. End-stage renal disease on hemodialysis on a Thursday, , Thursday schedule. Will arrange for hemodialysis today. 2. Fluid overload, status post dialysis yesterday and patient will be dialyzed again. His respiratory status appears to be improved. 3. Severe cardiomyopathy with ejection fraction of 20%. 4. Generalized debility. 5. Recent Klebsiella bacteremia and recent methicillin-resistant Staphylococcus aureus wound infection in the sacral decubitus as well. PLAN: Hemodialysis today and patient can be discharged post dialysis from nephrology standpoint.
--- NOTE | 2016-12-20 10:21 | P.PN ---
Subjective Principal diagnosis: Acute exacerbation of chronic systolic congestive heart failure This is a very pleasant 81-year-old gentleman who follows with Dr. Whitehead as his primary care physician. He has a history of severe cardiomyopathy with an ejection fraction less than 20%, he is status post AICD placement, chronic atrial fibrillation anticoagulated with Eliquis, chronic renal failure with end- stage renal disease receiving hemodialysis on Thursday. He also has a history of chronic obstructive pulmonary disease and is well-known to our practice. He had had previous pleural effusions with subsequent thoracentesis. He's had Pseudomonas pulmonary infections as well. He presented here yesterday with complaints of worsening shortness of breath. He was receiving hemodialysis at the time. He was sent here for further evaluation. His chest x-ray did reveal evidence of fluid volume overload with vascular congestion. He also had 1-2+ lower extremity peripheral edema. ProBNP 98,900, creatinine 1.80. No leukocytosis. No anemia. The plan is for repeat dialysis today. In the meantime he is being diuresed. He is seen today in consultation on the selective care unit. He is awake and alert in no acute distress. He is maintaining good O2 saturations up to 100% on 2 L/m per nasal cannula. He has been hemodynamically stable. He is afebrile. He's had one void not measured since admission. Reevaluated today on 12/20/2016, patient is feeling much, breathing a lot easier , denies any cough no wheezing no shortness of breath. All his labs were reviewed including basic metabolic profile and renal profile. No chest x-ray was done today. Objective - Vital Signs Vital signs: Vital Signs Temp 96.7 F L 12/20/16 08:00 Pulse 104 H 12/20/16 08:00 Resp 20 12/20/16 08:00 BP 86/53 12/20/16 08:00 Pulse Ox 93 L 12/20/16 08:00 Intake & Output 12/19/16 12/20/16 12/20/16 18:59 06:59 18:59 Intake Total 616 240 Output Total 20 200 Balance 596 -200 240 Weight 49.8 kg 49.3 kg Intake: Oral 616 240 Output: Urine 20 200 Other: Voiding Method Toilet Toilet Toilet # Voids 1 0 # Bowel Movements 1 - Exam GENERAL EXAM: Frail, cachectic. Alert, comfortable in no apparent distress. HEAD: Normocephalic. EYES: Normal reaction of pupils, equal size. NOSE: Clear with pink turbinates. THROAT: No erythema or exudates. NECK: No masses, no JVD. CHEST: No chest wall deformity. Right-sided hemodialysis catheter in place. Dressing dry and intact. LUNGS: Equal air entry no crackles or rhonchi or wheezes were appreciated on examination today. CVS: S1 and S2 normal with audible murmur, irregular rhythm. ABDOMEN: No hepatosplenomegaly, normal bowel sounds, no guarding or rigidity. Extremities: Trace lower extremity peripheral edema. No clubbing, no cyanosis. Peripheral pulses are intact. - Labs CBC & Chem 7: 12/19/16 09:25 12/20/16 05:52 Labs: Abnormal Lab Results - Last 24 Hours (Table) 12/19/16 12/19/16 12/19/16 Range/Units 09:25 09:25 11:43 RBC 4.29 L (4.30-5.90) m/uL Hgb 12.4 L (13.0-17.5) gm/dL Plt Count 139 L (150-450) k/uL Sodium 136 L (137-145) mmol/L Chloride 96 L (98-107) mmol/L BUN 32 H (9-20) mg/dL Creatinine 2.90 H (0.66-1.25) mg/dL Glucose 125 H (74-99) mg/dL POC Glucose (mg/dL) 159 H (75-99) mg/dL Alkaline Phosphatase (38-126) U/L 12/19/16 12/19/16 12/20/16 Range/Units 16:38 20:30 05:52 RBC (4.30-5.90) m/uL Hgb (13.0-17.5) gm/dL Plt Count (150-450) k/uL Sodium 136 L (137-145) mmol/L Chloride (98-107) mmol/L BUN 33 H (9-20) mg/dL Creatinine 3.00 H (0.66-1.25) mg/dL Glucose 126 H (74-99) mg/dL POC Glucose (mg/dL) 103 H 172 H (75-99) mg/dL Alkaline Phosphatase 135 H (38-126) U/L 12/20/16 Range/Units 05:57 RBC (4.30-5.90) m/uL Hgb (13.0-17.5) gm/dL Plt Count (150-450) k/uL Sodium (137-145) mmol/L Chloride (98-107) mmol/L BUN (9-20) mg/dL Creatinine (0.66-1.25) mg/dL Glucose (74-99) mg/dL POC Glucose (mg/dL) 122 H (75-99) mg/dL Alkaline Phosphatase (38-126) U/L Assessment and Plan Plan: #1 Acute exacerbation of chronic systolic congestive heart failure. #2 End-stage renal failure receiving hemodialysis on Thursday with additional treatment scheduled for today. #3 Severe ischemic cardiomyopathy with estimated ejection fraction less than 20% , status post AICD placement. #4 Chronic atrial fibrillation, anticoagulated with apixaban. #5 Hyperlipidemia. #6 Diabetes mellitus. #7 Benign prostatic hypertrophy. #8 Previous admission for pseudomonas aeruginosa pneumonia, complicated by influenza. #9 Poor overall functional performance secondary to the above-mentioned multiple comorbidities. Recommendation: Patient is responding well to treatment mostly dialysis, bronchodilators, diuretics, consider discharge planning in the next 24-48 hours. Time with Patient: Less than 30
[2016-12-20 11:35] LABS: Glucose,Whole Blood 164 mg/dL (75-99)
[2016-12-20 12:17] VITALS: BP 113/52; PULSE 67; RESP 21; TEMP 96.6
--- NOTE | 2016-12-20 13:52 | P.PN ---
Subjective Principal diagnosis: CHF, COPD A pleasant 81-year-old gentleman with a known history of end-stage renal disease on hemodialysis, COPD, cardiomyopathy with known ejection fraction of less than 20%, AICD in place, atrial fibrillation, diabetes mellitus, chronic systolic congestive heart failure, hyperlipidemia and hypertension. Increasing shortness of breath. Patient received hemodialysis yesterday with 2 L taken off and again today with 1.5 L taken off upon examination he is feeling quite a bit better. He is breathing easier. Denies complaints of dizziness lightheadedness, palpitations or chest discomfort. He is no longer short of breath with talking and is laying in bed comfortably without complaints of shortness of breath. Objective - Vital Signs Vital signs: Vital Signs Temp 96.6 F L 12/20/16 12:00 Pulse 67 12/20/16 12:00 Resp 21 12/20/16 12:00 BP 113/52 12/20/16 12:00 Pulse Ox 93 L 12/20/16 08:00 Intake & Output 12/19/16 12/20/16 12/20/16 18:59 06:59 18:59 Intake Total 616 480 Output Total 20 200 Balance 596 -200 480 Weight 49.8 kg 49.3 kg Intake: Oral 616 480 Output: Urine 20 200 Other: Voiding Method Toilet Toilet Toilet # Voids 1 0 # Bowel Movements 1 - Exam PHYSICAL EXAMINATION: HEENT: Head is atraumatic, normocephalic. Pupils equal, round. Neck is supple. There is no elevated jugular venous pressure. HEART EXAMINATION: Heart sounds irregular irregular, S1 and S2 normal. No murmur or gallop heard. CHEST EXAMINATION: Lungs reveal diminished air entry throughout. No chest wall tenderness is noted on palpation or with deep breathing. ABDOMEN: Soft, nontender. Bowel sounds are heard. No organomegaly noted. EXTREMITIES: 1+ peripheral pulses with evidence of 1-2+ peripheral edema and no calf tenderness noted. NEUROLOGIC patient is awake, alert and oriented x3. . - Labs CBC & Chem 7: 12/19/16 09:25 12/20/16 05:52 Labs: Abnormal Lab Results - Last 24 Hours (Table) 12/19/16 12/19/16 12/19/16 Range/Units 09:25 16:38 20:30 Sodium 136 L (137-145) mmol/L Chloride 96 L (98-107) mmol/L BUN 32 H (9-20) mg/dL Creatinine 2.90 H (0.66-1.25) mg/dL Glucose 125 H (74-99) mg/dL POC Glucose (mg/dL) 103 H 172 H (75-99) mg/dL Alkaline Phosphatase (38-126) U/L 12/20/16 12/20/16 12/20/16 Range/Units 05:52 05:57 11:23 Sodium 136 L (137-145) mmol/L Chloride (98-107) mmol/L BUN 33 H (9-20) mg/dL Creatinine 3.00 H (0.66-1.25) mg/dL Glucose 126 H (74-99) mg/dL POC Glucose (mg/dL) 122 H 164 H (75-99) mg/dL Alkaline Phosphatase 135 H (38-126) U/L Assessment and Plan Plan: Assessment and plan #1 symptoms of progressive dyspnea and fluid overload #2 end-stage renal disease, on hemodialysis, will be dialyzed today #3 severe cardiomyopathy with an ejection fraction less than 20% #4 status post AICD #5 chronic atrial fibrillation #6 nonsustained ventricular tachycardia From cardiology's perspective, continue amiodarone 200 mg by mouth twice a day, Eliquis 2.5mg BID, atorvastatin, Lasix and metoprolol. The patient is scheduled to follow-up with his primary mulling machine operator out of [facility] on December 24. From our standpoint, patient may be discharged home and follow-up with his regular mulling machine operator. [employer] note has been reviewed, I agree with a documented findings and plan of care. Patient was seen and examined.
--- NOTE | 2016-12-21 15:40 | DS ---
DATE OF ADMISSION: 12/18/2016 DATE OF DISCHARGE: 12/20/2016 HOSPITAL COURSE: This is an 81-year-old gentleman with complex medical history, including a systolic cardiomyopathy with EF less than 20%. Patient also has noted to be in cardiorenal syndrome and is currently dialysis dependent. The patient was brought into the hospital with some difficulty breathing. Patient thereafter was noted to be in acute systolic heart failure, was dialyzed. About 7 liters of ultrafiltrate was removed during the hospitalization. Today patient appears to be doing better and he is able to lie flat. Denies having any headaches, blurry vision, difficulty breathing, chest pain, nausea, vomiting, or diarrhea. The patient at the time of discharge: HEAD: Atraumatic, normocephalic. Pupils equal, round, and reactive to light and accommodation. Neck is supple. No JVD . LUNGS: Trace crackles at the bases; however, no rhonchi, wheezing, and he is able to lie flat. ABDOMEN: Soft, nontender, no organomegaly. LOWER EXTREMITIES: No edema noted. NEURO: No focal motor or sensory deficits noted. ASSESSMENT AND PLAN: 1. Acute exacerbation of systolic heart failure. 2. End stage renal disease on hemodialysis. 3. Chronic atrial fibrillation. 4. Nonsustained ventricular tachycardia. 5. Moderate to severe protein calorie malnutrition. 6. Hypotension likely sequelae of ESRD and severe cardiomyopathy. Home medications: No change in home medications. The patient is to continue: 1. Lovastatin. 2. Levemir. 3. Isordil. 4. Rivastigmine. 5. Eliquis. 6. Lasix. 7. Midodrine. 8. Amiodarone. 9. Pantoprazole. 10. Metoprolol. 11. Megestrol. 12. NovoLog. 13. Dorzolamide. 14. B complex. 15. DuoNeb. 16. Flomax. To follow up with Dr. Renea Farah. 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 Patient is discharged home in stable condition.
== END 2016-12-20 15:24 | disposition home or self-care (01) | DRG 291 ==
LOC: EC 16:30 → 6SEL 19:47
PROVIDERS: ADMIT Family Medicine; ATTEND Family Medicine
PROC: 5A1D00Z (ICD-10-PCS; principal; 2016-12-19)
DX: I13.2 Hypertensive heart and chronic kidney disease with heart failure and with stage 5 chronic kidney disease, or end stage renal disease (principal); E43 Unspecified severe protein-calorie malnutrition; N18.6 End stage renal disease; I50.23 Acute on chronic systolic (congestive) heart failure; I47.2 Ventricular tachycardia; E11.22 Type 2 diabetes mellitus with diabetic chronic kidney disease; I27.2 Other secondary pulmonary hypertension; I48.2 Chronic atrial fibrillation; J44.9 Chronic obstructive pulmonary disease, unspecified; E78.5 Hyperlipidemia, unspecified; I25.5 Ischemic cardiomyopathy; I49.3 Ventricular premature depolarization; N40.0 Benign prostatic hyperplasia without lower urinary tract symptoms; R01.1 Cardiac murmur, unspecified; Z68.1 Body mass index [BMI] 19.9 or less, adult; Z79.01 Long term (current) use of anticoagulants; Z79.4 Long term (current) use of insulin; Z99.2 Dependence on renal dialysis; Z86.14 Personal history of Methicillin resistant Staphylococcus aureus infection; Z95.810 Presence of automatic (implantable) cardiac defibrillator; Z88.8 Allergy status to other drugs, medicaments and biological substances; Z91.041 Radiographic dye allergy status
CPT/HCPCS: 36415; 71020; 80048; 80053; 82550; 82553; 83036; 83735; 83880; 84484; 85025; 85610; 85730; 90935; 93005; 99291

== ENCOUNTER 2016-12-22 19:26 | Emergency (ER) | payer MEDICARE, BC ==
--- NOTE | 2016-12-22 20:52 | ED ---
General Adult HPI - General Chief complaint: Recheck/Abnormal Lab/Rx Stated complaint: Dr Sent/ breathing/oxgyen level 70? Time Seen by Provider: 12/22/16 20:00 Source: patient, RN notes reviewed Mode of arrival: wheelchair Limitations: no limitations - History of Present Illness Initial comments: This is an 81-year-old male who presents to the emergency department because he went to his doctor's office for a post hospital follow-up. Patient states he went to the office without any complaints. Patient stated at the doctor's office they thought his pulse ox is in the 70s legs and in the ER immediately. Patient denies any shortness of breath or difficulty breathing. Patient denies any palpitations or cough. Patient denies any chest pain. Patient denies any recent fever or chills. He states he has a history of COPD and he thinks that' s why he was admitted to the hospital recently but he does not remember. Patient denies any abdominal pain patient denies any nausea vomiting per patient denies any lightheadedness dizziness or near syncopal episode. - Related Data Home Medications Medication Instructions Recorded Confirmed Insulin Detemir [Levemir Flextouch] 12 units SQ DAILY@0700 09/03/14 12/22/16 Lovastatin [Mevacor] 40 mg PO HS@2100 09/03/14 12/22/16 Apixaban [Eliquis] 2.5 mg PO BID@0800,1700 01/18/16 12/22/16 Isosorbide Dinitrate [Isordil] 10 mg PO BID@0800,17001/18/16 12/22/16 Rivastigmine Tartrate 1.5 mg PO BID@0800,1700 01/18/16 12/22/16 [Rivastigmine] Furosemide [Lasix] 40 mg PO DAILY@0600 08/15/16 12/22/16 Amiodarone [Cordarone] 200 mg PO BID@0800,1700 09/16/16 12/22/16 Megestrol [Megace] 400 mg PO DAILY@0800 09/16/16 12/22/16 Metoprolol Succinate (ER) [Toprol 50 mg PO DAILY@1700 09/16/16 12/22/16 XL] Midodrine [ProAmatine] 5 mg PO TID@0600,1400,2100 09/16/16 12/22/16 Pantoprazole [Protonix] 40 mg PO DAILY@0600 09/16/16 12/22/16 B Complex & C No.20/Folic Acid 1 mg PO W/SUPPER 10/03/16 12/22/16 [Nephrocaps Softgel] Dorzolamide 2% [Trusopt 2%] 1 drops BOTH EYES BID@0800,1700 10/03/16 12/22/16 Insulin Aspart [NovoLOG Flexpen] See Protocol SQ TID 10/03/16 12/22/16 Tamsulosin [Flomax] 0.4 mg PO DAILY 11/13/16 12/22/16 Previous Rx's Medication Instructions Recorded Ipratropium-Albuterol Nebulize 3 ml INHALATION RT-QID PRN #0 10/09/16 [Duoneb 0.5 mg-3 mg/3 ml Soln] ampul.neb Allergies Allergy/AdvReac Type Severity Reaction Status Date / Time Iodinated Contrast Media - Allergy Rash/Hives Verified 12/22/16 21:09 Oral and [Iodinated Contrast Media - IV Dye] warfarin sodium Allergy Unknown Verified 12/22/16 21:09 [From Coumadin] Review of Systems ROS Statement: Those systems with pertinent positive or pertinent negative responses have been documented in the HPI. ROS Other: All systems not noted in ROS Statement are negative. Past Medical History Past Medical History: Atrial Fibrillation, Cancer, Heart Failure, Diabetes Mellitus, Hyperlipidemia, Hypertension, Pneumonia, Prostate Disorder, Renal Disease, Skin Disorder Additional Past Medical History / Comment(s): 08/15/16 pneumonia/ influenza B. He was also started on dialysis at that time per his spouse.10/14/16 UTI- WENT TO [facility] FOR REHAB JUST WENT HOME 11-05-16 Other Hx: Hemodialysis Tue// Sat, , cardiomyopathy, coccyx wounds currently-dsng, IDDM type II, spouse denies pt ever having HTN, bronchitis, bronchospasms, skin cancer with removal.pancreatitis History of Any Multi-Drug Resistant Organisms: ESBL, MRSA Date of last positivie culture/infection: 11/13/16, 11/13/16 ESBL MDRO Source:: COCCYX, ESBL BLOOD Past Surgical History: AICD, Cholecystectomy, Hernia Repair Additional Past Surgical History / Comment(s): defibrillator, cataracts removed , skin CA removed from face, colonoscopy, L inguinal hernia repair, prostate surgery, eye surgery Past Anesthesia/Blood Transfusion Reactions: No Reported Reaction Type of Cardiac Device: AICD Device Placement Date:: 07-28-11 Past Psychological History: No Psychological Hx Reported Smoking Status: Never smoker Past Alcohol Use History: None Reported Past Drug Use History: None Reported - Past Family History Mother History Unknown: Yes Additional Family Medical History / Comment(s): Pt does not know parents history -he was raised in foster care. Son(s) Family Medical History: AFIB Additional Family Medical History / Comment(s): son had heart transplant, second son has cardiomyopathy General Exam - General Exam Comments Initial Comments: GENERAL: Patient is well-developed and well-nourished. Patient is nontoxic and well- hydrated and is in no acute distress. ENT: Neck is soft and supple. No significant lymphadenopathy is noted. Oropharynx is clear. Moist mucous membranes. Neck has full range of motion without eliciting any pain. EYES: The sclera were anicteric and conjunctiva were pink and moist. Extraocular movements were intact and pupils were equal round and reactive to light. Eyelids were unremarkable. PULMONARY: Unlabored respirations. Good breath sounds bilaterally. No audible rales rhonchi or wheezing was noted. CARDIOVASCULAR: There is a regular rate and rhythm without any murmurs gallops or rubs. ABDOMEN: Soft and nontender with normal bowel sounds. No palpable organomegaly was noted. There is no palpable pulsatile mass. SKIN: Skin is clear with no lesions or rashes and otherwise unremarkable. NEUROLOGIC: Patient is alert and oriented x3. Cranial nerves II through XII are grossly intact. Motor and sensory are also intact. Normal speech, volume and content. Symmetrical smile. MUSCULOSKELETAL: Normal extremities with adequate strength and full range of motion. No lower extremity swelling or edema. No calf tenderness. LYMPHATICS: No significant lymphadenopathy is noted PSYCHIATRIC: Normal psychiatric evaluation. Limitations: no limitations Course Vital Signs 12/22/16 12/22/16 12/22/16 19:57 21:07 21:09 Temperature 96.9 F L 96.9 F L Pulse Rate 57 L 92 Respiratory 16 16 16 Rate Blood Pressure 89/62 O2 Sat by Pulse 92 L Oximetry 12/22/16 22:33 Temperature Pulse Rate 90 Respiratory 18 Rate Blood Pressure 86/58 O2 Sat by Pulse 99 Oximetry Medical Decision Making - Medical Decision Making When patient arrived he was satting 97% on room air and on 2 L she was between 99-100% Atrial fibrillation at 92 bpm QRS is 120 QT intervals 4:30 QTC is 531. Patient' s EKG shows Q waves in the septal leads. EKG shows no acute abnormality when compared to an old EKG. Chest x-ray shows slight improvement over the previous chest x-ray. Patient continues to sat 100% on 2 L and 97% on room air. Patient has no complaints. Patient is supposed to be dialyzed tomorrow I spoke with Dr. Farah and he was in agreement with the patient go home and be dialyzed tomorrow and he'll follow-up with the patient - Lab Data Result diagrams: 12/22/16 20:55 12/22/16 20:55 Lab Results 12/22/16 12/22/16 12/22/16 Range/Units 20:55 20:55 20:55 WBC 6.0 (3.8-10.6) k/uL RBC 4.25 L (4.30-5.90) m/uL Hgb 12.0 L (13.0-17.5) gm/dL Hct 38.8 L (39.0-53.0) % MCV 91.3 (80.0-100.0) fL MCH 28.3 (25.0-35.0) pg MCHC 31.0 (31.0-37.0) g/dL RDW 15.5 (11.5-15.5) % Plt Count 107 L (150-450) k/uL Neutrophils % 71 % Lymphocytes % 15 % Monocytes % 10 % Eosinophils % 1 % Basophils % 0 % Neutrophils # 4.3 (1.3-7.7) k/uL Lymphocytes # 0.9 L (1.0-4.8) k/uL Monocytes # 0.6 (0-1.0) k/uL Eosinophils # 0.1 (0-0.7) k/uL Basophils # 0.0 (0-0.2) k/uL Hypochromasia Moderate PT (9.0-12.0) sec INR (<1.1) APTT (22.0-30.0) sec Sodium 133 L (137-145) mmol/L Potassium 4.3 (3.5-5.1) mmol/L Chloride 94 L (98-107) mmol/L Carbon Dioxide 20 L (22-30) mmol/L Anion Gap 19 mmol/L BUN 53 H (9-20) mg/dL Creatinine 4.37 H (0.66-1.25) mg/dL Est GFR (MDRD) Af Amer 16 (>60 ml/min/1.73 sqM) Est GFR (MDRD) Non-Af 13 (>60 ml/min/1.73 sqM) Glucose 254 H (74-99) mg/dL Calcium 9.1 (8.4-10.2) mg/dL Magnesium 2.2 (1.6-2.3) mg/dL Total Bilirubin 1.3 (0.2-1.3) mg/dL AST 23 (17-59) U/L ALT 20 L (21-72) U/L Alkaline Phosphatase 135 H (38-126) U/L Total Creatine Kinase 35 L (55-170) U/L CK-MB (CK-2) 4.4 H* (0.0-2.4) ng/mL CK-MB (CK-2) Rel Index 12.6 Troponin I 0.025 (0.000-0.034) ng/mL NT-Pro-B Natriuret Pep pg/mL Total Protein 6.7 (6.3-8.2) g/dL Albumin 3.6 (3.5-5.0) g/dL 12/22/16 12/22/16 Range/Units 20:55 20:55 WBC (3.8-10.6) k/uL RBC (4.30-5.90) m/uL Hgb (13.0-17.5) gm/dL Hct (39.0-53.0) % MCV (80.0-100.0) fL MCH (25.0-35.0) pg MCHC (31.0-37.0) g/dL RDW (11.5-15.5) % Plt Count (150-450) k/uL Neutrophils % % Lymphocytes % % Monocytes % % Eosinophils % % Basophils % % Neutrophils # (1.3-7.7) k/uL Lymphocytes # (1.0-4.8) k/uL Monocytes # (0-1.0) k/uL Eosinophils # (0-0.7) k/uL Basophils # (0-0.2) k/uL Hypochromasia PT 13.5 H (9.0-12.0) sec INR 1.4 (<1.1) APTT 25.8 (22.0-30.0) sec Sodium (137-145) mmol/L Potassium (3.5-5.1) mmol/L Chloride (98-107) mmol/L Carbon Dioxide (22-30) mmol/L Anion Gap mmol/L BUN (9-20) mg/dL Creatinine (0.66-1.25) mg/dL Est GFR (MDRD) Af Amer (>60 ml/min/1.73 sqM) Est GFR (MDRD) Non-Af (>60 ml/min/1.73 sqM) Glucose (74-99) mg/dL Calcium (8.4-10.2) mg/dL Magnesium (1.6-2.3) mg/dL Total Bilirubin (0.2-1.3) mg/dL AST (17-59) U/L ALT (21-72) U/L Alkaline Phosphatase (38-126) U/L Total Creatine Kinase (55-170) U/L CK-MB (CK-2) (0.0-2.4) ng/mL CK-MB (CK-2) Rel Index Troponin I (0.000-0.034) ng/mL NT-Pro-B Natriuret Pep 74818 pg/mL Total Protein (6.3-8.2) g/dL Albumin (3.5-5.0) g/dL Disposition Clinical Impression: Oxygen desaturation Disposition: HOME SELF-CARE Condition: Good Instructions: Dyspnea (ED) Referrals: Jose Farah MD [Primary Care Provider] - 1-2 days Time of Disposition: 22:44
[2016-12-22 21:17] LABS: Basophils % (A) 0 %; CH 28.9; CHCM 31.7; Eosinophils # (A) 0.1 k/uL (0-0.7); Eosinophils % (A) 1 %; HCT 38.8 % (39.0-53.0); Hypochromasia Moderate; Luc # (Auto) 0.13; Luc % (Auto) 2; Lymphocytes # (A) 0.9 k/uL (1.0-4.8); Lymphocytes % (A) 15 %; MCH 28.3 pg (25.0-35.0); MCV 91.3 fL (80.0-100.0); Mean Platelet Volume 10.4; Monocytes # (A) 0.6 k/uL (0-1.0); Monocytes % (A) 10 %; Neutrophils # (A) 4.3 k/uL (1.3-7.7); Neutrophils % (A) 71 %; RBC 4.25 m/uL (4.30-5.90); RDW 15.5 % (11.5-15.5); WBC (Perox) 5.77
[2016-12-22 21:28] LABS: Calcium 9.1 mg/dL (8.4-10.2); Magnesium 2.2 mg/dL (1.6-2.3); Potassium 4.3 mmol/L (3.5-5.1); Total Bilirubin 1.3 mg/dL (0.2-1.3); Total Protein 6.7 g/dL (6.3-8.2)
[2016-12-22 21:32] LABS: INR 1.4 (<1.1); Partial Thromboplastin Time 25.8 sec (22.0-30.0); Prothrombin Time 13.5 sec (9.0-12.0)
--- NOTE | 2016-12-22 21:44 | XR ---
EXAMINATION TYPE: XR chest 2V DATE OF EXAM: 12/22/2016 COMPARISON: 12/18/2016 HISTORY: Difficulty breathing TECHNIQUE: Frontal and lateral views of the chest are obtained. FINDINGS: Heart is enlarged. There is mild pulmonary congestion. There is right central venous [address] ter with tip in the right atrium. There is no definite pleural effusion. There is a left axillary pac emaker with a lead tip in the right ventricle. IMPRESSION: Cardiomegaly with mild pulmonary vascular congestion that is slightly improved compared to last exam. Minimal heart failure.
[2016-12-22 22:04] LABS: Troponin I 0.025 ng/mL (0.000-0.034)
[2016-12-22 22:05] LABS: Creatine Kinase MB 4.4 ng/mL (0.0-2.4)
[2016-12-22 23:13] VITALS: BP 88/60; PULSE 92; RESP 16; TEMP 97
== END 2016-12-22 23:13 | disposition home or self-care (01) ==
LOC: EC 19:26
DX: R09.02 Hypoxemia (principal); I48.91 Unspecified atrial fibrillation; I11.0 Hypertensive heart disease with heart failure; I50.9 Heart failure, unspecified; E11.9 Type 2 diabetes mellitus without complications; E78.5 Hyperlipidemia, unspecified; N28.9 Disorder of kidney and ureter, unspecified; Z99.2 Dependence on renal dialysis; Z95.810 Presence of automatic (implantable) cardiac defibrillator; Z88.8 Allergy status to other drugs, medicaments and biological substances; Z91.041 Radiographic dye allergy status; Z79.4 Long term (current) use of insulin; Z79.01 Long term (current) use of anticoagulants; Z79.899 Other long term (current) drug therapy
CPT/HCPCS: 36415; 71020; 80053; 82550; 82553; 83735; 83880; 84484; 85025; 85610; 85730; 93005; 99284